=== PATIENT | male | born 1970 | race Caucasian/White ===

== ENCOUNTER → 2018-03-18 12:39 | Outpatient (CLI) | payer OTHER, SELFPAY ==
[2018-03-18 14:15] LABS: Absolute Lymphocyte Count 2.25 X10^3/ul (0.83-4.51); Absolute Neutrophil Count 4.7 X10^3/uL (2.0-7.7); Basophil# 0.04 X10^3/uL; Basophil% 0.5 % (0-1); Eosinophils% 1.3 % (0-5); Hematocrit 44.2 % (40-54); Lymphocyte # 2.25 X10^3/ul (4.0); Lymphocyte % 28.2 % (19-41); Mean Corp Hgb Conc 31.7 g/gl (32-36); Mean Corpuscular Hgb 24.8 pg (27.0-32.0); Mean Corpuscular Volume 78.2 fL (80-94); Mean Platelet Vol. 9.9 fl (6.2-12.0); Monocyte# 0.88 X10^3/uL; Neutrophil % 58.7 % (47-70); POSITIVE COUNT NO; POSITIVE DIFFERENTIAL NO; POSITIVE MORPHOLOGY NO; Platelet Count 395 K/mm3 (150-450); RBC Distribution Width SD 39.6 fl (35.1-43.9); Red Blood Count 5.65 M/mm3 (4.6-6.2)
[2018-03-18 14:32] LABS: Vitamin D,25 Hydroxy 7.4 ng/mL (29.95-100.01)
[2018-03-18 14:34] LABS: ALB/GLOB Ratio 0.9 RATIO (0.9-2.4); AST(SGOT) 16 U/L (15-37); Alanine Aminotransfer ALT/SGPT 39 U/L (16-61); Albumin, Serum 4.1 g/dL (3.2-5.0); Alkaline Phosphatase 72 U/L (45-117); Anion Gap 7 (5-15); BUN 15 mg/dL (7-18); BUN/Creat Ratio 17.7 RATIO (10-20); Calcium,Total 9.5 mg/dL (8.5-10.1); Chloride 99 mmol/L (98-107); Cholesterol 182 mg/dL (200); Creatinine, Serum 0.85 mg/dL (0.70-1.30); EST Glomerular Filtration Rate 103 mL/min (>60); Est Glom Filt Rate - Afr Amer 124 mL/min (>60); Globulin 4.4 g/dL (2.2-4.2); Glucose 93 mg/dL (74-106); High Density Lipoprotein 34 mg/dL; Potassium 3.6 mmol/L (3.5-5.1); Protein, Total 8.5 g/dL (6.4-8.2); Sodium Level 136 mmol/L (136-145); Thyroid Stim Hormone (TSH) 1.71 uIU/mL (0.358-3.74); Triglycerides 254 mg/dL; Very Low Density Lipoprotein 51 mg/dL (5-40)
[2018-03-18 14:38] LABS: Microalbumin,Random Urine 66.8 mg/L (NO RANGE EST.); Microalbumin:Creatinine Ratio 61.3 mg/g CRE (<30 mg/g CRE)
== END ==
PROVIDERS: Family Provider Family Medicine; PCP Family Medicine; Referring Provider Family Medicine; Visit Provider Family Medicine
DX: E11.65 Type 2 diabetes mellitus with hyperglycemia (principal); E11.8 Type 2 diabetes mellitus with unspecified complications
CPT/HCPCS: 36415; 80053; 80061; 82043; 82306; 82570; 84443; 85025

== ENCOUNTER → 2019-06-13 13:48 | Outpatient (CLI) | payer OTHER, SELFPAY ==
[2015-12-03 02:18] VITALS: BMI 30.7
[2019-06-13 16:04] LABS: ALB/GLOB Ratio 1.2 RATIO (0.9-2.4); AST(SGOT) 15 U/L (15-37); Alanine Aminotransfer ALT/SGPT 37 U/L (16-61); Albumin, Serum 4.4 g/dL (3.2-5.0); Alkaline Phosphatase 66 U/L (45-117); Anion Gap 9 (5-15); BUN 17 mg/dL (7-18); BUN/Creat Ratio 13.6 RATIO (10-20); Calcium,Total 9.5 mg/dL (8.5-10.1); Chloride 100 mmol/L (98-107); Cholesterol 180 mg/dL (200); Creatinine, Serum 1.25 mg/dL (0.70-1.30); EST Glomerular Filtration Rate 65 mL/min (>60); Est Glom Filt Rate - Afr Amer 79 mL/min (>60); Globulin 3.6 g/dL (2.2-4.2); Glucose 87 mg/dL (74-106); High Density Lipoprotein 44 mg/dL; Potassium 3.4 mmol/L (3.5-5.1); Sodium Level 136 mmol/L (136-145); Triglycerides 166 mg/dL; Very Low Density Lipoprotein 33 mg/dL (5-40)
[2019-06-13 16:53] LABS: Microalbumin:Creatinine Ratio 136.2 mg/g CRE (<30 mg/g CRE)
[2019-06-13 17:09] LABS: Hemoglobin A1c 6.8 % (4.2-6.3)
== END ==
PROVIDERS: PCP Family Medicine; Visit Provider Family Medicine
DX: E11.8 Type 2 diabetes mellitus with unspecified complications (principal); I10 Essential (primary) hypertension
CPT/HCPCS: 36415; 80053; 80061; 82043; 82570; 83036

== ENCOUNTER → 2020-06-07 11:36 | Outpatient (CLI) | payer OTHER, SELFPAY ==
[2015-12-03 02:18] VITALS: BMI 30.7
[2020-06-07 15:45] LABS: ALB/GLOB Ratio 1.1 RATIO (0.9-2.4); AST(SGOT) 18 U/L (15-37); Alanine Aminotransfer ALT/SGPT 34 U/L (16-61); Albumin, Serum 4.1 g/dL (3.2-5.0); Alkaline Phosphatase 81 U/L (45-117); Anion Gap 9 (5-15); BUN 12 mg/dL (7-18); Calcium,Total 9.2 mg/dL (8.5-10.1); Chloride 95 mmol/L (98-107); Cholesterol 227 mg/dL (200); Creatinine, Serum 0.86 mg/dL (0.70-1.30); EST Glomerular Filtration Rate 101 mL/min (>60); Est Glom Filt Rate - Afr Amer 122 mL/min (>60); Globulin 3.8 g/dL (2.2-4.2); Glucose 152 mg/dL (74-106); High Density Lipoprotein 48 mg/dL; Protein, Total 7.9 g/dL (6.4-8.2); Sodium Level 132 mmol/L (136-145); Triglycerides 223 mg/dL; Very Low Density Lipoprotein 45 mg/dL (5-40)
[2020-06-07 17:50] LABS: Uric Acid 7.5 mg/dL (3.5-7.2)
[2020-06-07 18:03] LABS: Hemoglobin A1c 7.1 % (3.8-5.6)
== END ==
PROVIDERS: PCP Family Medicine; Visit Provider Family Medicine
DX: E11.8 Type 2 diabetes mellitus with unspecified complications (principal); I10 Essential (primary) hypertension
CPT/HCPCS: 36415; 80053; 80061; 83036; 84550

== ENCOUNTER 2020-06-19 09:52 | Emergency (ER) | payer OTHER, SELFPAY ==
[2020-06-19 09:53] VITALS: BP 137/100; PULSE 83; RESP 16; TEMP 36.1; O2SAT 95; BMI 32.5
--- NOTE | 2020-06-19 10:18 | ED.VISSUMM ---
- ER Visit Summary Date of Service: 06/19/20 Chief Complaint: Right thumb laceration History of Present Illness: The patient is a 49 M presenting with right thumb laceration. Patient was at work. 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 Tetanus is up-to-date. No other injuries. Physical Examination: Vitals are stable. Patient is afebrile. Alert no acute distress. HEENT exam is unremarkable. Neck is supple. Lungs are clear and equal bilaterally. Heart is regular rate and rhythm. Extremities 2.5 cm laceration distal medial right thumb. Tendon function intact. Nail intact. Normal cap refill Skin is warm and dry. No focal neurologic deficit. Remainder of exam is unremarkable. Emergency Department Course and Treatment: Digital block was performed. Irrigated with saline. 4, 5-0 simple sutures were placed. Patient tolerated this well. Advised wound care instructions. Ad[facility] with [facility]. Advised to return to ED for worsening complaints. Disposition: Discharge home Impression: Right thumb laceration, laceration repair This note was generated with [employer] dictation software. It may contain incorrect words, spelling, and punctuation that were not noted in review of the chart prior to signing ED Disposition - Plan for ED Patient: Instructions: ED Laceration, Hand: All Closures Referrals: Kyaw Schmidt MD [Primary Care Provider] - [facility] [[facility]] -
--- NOTE | 2020-06-19 11:09 | ED.DEP ---
ED Disposition - Plan for ED Patient: Instructions: ED Laceration, Hand: All Closures Referrals: Kyaw Schmidt MD [Primary Care Provider] - [facility] [[facility]] -
[2020-06-19] MEDS: Lidocaine 1% (20 ml mdv) 20 ML Vial INFILT (11:25)
[2020-06-19 11:27] VITALS: RESP 20
[2020-06-19 11:30] VITALS: RESP 20
== END 2020-06-19 11:31 | disposition home or self-care (01) ==
LOC: ED 10:23
PROVIDERS: Emergency Provider Emergency Medicine; PCP Family Medicine
DX: S61.011A Laceration without foreign body of right thumb without damage to nail, initial encounter (principal); W27.4XXA Contact with kitchen utensil, initial encounter; Y93.9 Activity, unspecified; Y92.89 Other specified places as the place of occurrence of the external cause; Y99.0 Civilian activity done for income or pay
CPT/HCPCS: 12001; 99284

== ENCOUNTER → 2020-06-27 14:24 | Outpatient (CLI) | payer OTHER, SELFPAY ==
[2020-06-19 09:53] VITALS: BMI 32.5
[2020-06-27 18:08] LABS: Anion Gap 9 (5-15); BUN 16 mg/dL (7-18); BUN/Creat Ratio 19.5 RATIO (10-20); Calcium,Total 10.1 mg/dL (8.5-10.1); Chloride 102 mmol/L (98-107); Creatinine, Serum 0.82 mg/dL (0.70-1.30); EST Glomerular Filtration Rate 106 mL/min (>60); Est Glom Filt Rate - Afr Amer 128 mL/min (>60); Glucose 90 mg/dL (74-106); Potassium 3.7 mmol/L (3.5-5.1); Sodium Level 138 mmol/L (136-145)
== END ==
LOC: MFPLAB 14:27
PROVIDERS: PCP Family Medicine; Referring Provider Family Medicine; Visit Provider Family Medicine
DX: I10 Essential (primary) hypertension (principal)
CPT/HCPCS: 36415; 80048

== ENCOUNTER → 2020-08-02 11:27 | Outpatient (CLI) | payer OTHER, SELFPAY ==
[2020-06-29 14:26] VITALS: BMI 36.1
[2020-08-02 15:11] LABS: Absolute Lymphocyte Count 1.85 X10^3/uL (0.83-4.51); Absolute Neutrophil Count 4.3 X10^3/uL (2.0-7.7); Basophil# 0.06 X10^3/uL; Basophil% 0.9 % (0-1); Eosinophil# 0.09 X10^3/uL; Eosinophils% 1.3 % (0-5); Hematocrit 46.9 % (40-54); Hemoglobin 14.5 g/dL (13.0-16.5); Lymphocyte # 1.85 X10^3/ul (4.0); Lymphocyte % 26.7 % (19-41); Mean Corp Hgb Conc 30.9 g/dL (32-36); Mean Corpuscular Hgb 24.5 pg (27.0-32.0); Mean Corpuscular Volume 79.1 fL (80-94); Mean Platelet Vol. 9.9 fl (6.2-12.0); Monocyte# 0.56 X10^3/uL; Monocyte% 8.1 % (0-10); NRBC Flagged by Analyzer 0 % (0-5); Neutrophil # 4.31 X10^3/uL (2.7-7.7); Platelet Count 363 K/mm3 (150-450); RBC Distribution Width CV 14.2 % (11.6-14.6); RBC Distribution Width SD 40.6 fl (35.1-43.9); Red Blood Count 5.93 M/mm3 (4.6-6.2); White Blood Count 6.9 K/mm3 (4.4-11.0)
[2020-08-02 15:49] LABS: ALB/GLOB Ratio 1.1 RATIO (0.9-2.4); AST(SGOT) 15 U/L (15-37); Alanine Aminotransfer ALT/SGPT 33 U/L (16-61); Albumin, Serum 3.9 g/dL (3.2-5.0); Alkaline Phosphatase 85 U/L (45-117); Anion Gap 9 (5-15); BUN 9 mg/dL (7-18); BUN/Creat Ratio 11.5 RATIO (10-20); Calcium,Total 9.1 mg/dL (8.5-10.1); Chloride 102 mmol/L (98-107); Creatinine, Serum 0.78 mg/dL (0.70-1.30); EST Glomerular Filtration Rate 112 mL/min (>60); Est Glom Filt Rate - Afr Amer 136 mL/min (>60); Globulin 3.6 g/dL (2.2-4.2); Glucose 208 mg/dL (74-106); Potassium 3.7 mmol/L (3.5-5.1); Protein, Total 7.5 g/dL (6.4-8.2); Sodium Level 135 mmol/L (136-145)
== END ==
LOC: MFPLAB 11:30
PROVIDERS: PCP Family Medicine; Referring Provider Family Medicine; Visit Provider Family Medicine
DX: R19.7 Diarrhea, unspecified (principal)
CPT/HCPCS: 36415; 80053; 85025

== ENCOUNTER → 2020-08-03 | Outpatient (CLI) | payer OTHER, SELFPAY ==
[2020-06-29 14:26] VITALS: BMI 36.1
== END | disposition home or self-care (01) ==
LOC: LABSPEC 09:08
PROVIDERS: PCP Family Medicine; Referring Provider Family Medicine; Visit Provider Family Medicine
DX: R19.7 Diarrhea, unspecified (principal)
CPT/HCPCS: 87493; 87506

== ENCOUNTER 2021-07-17 00:54 | Inpatient (IN) | payer OTHER, SELFPAY ==
[2021-07-17] VITALS (21 sets, daily range): BP systolic 160–232; BP diastolic 104–136; PULSE 67–111; RESP 12–35; TEMP 35.6–36.7; O2SAT 93–100; BMI 35.1; BMI 32.1
--- NOTE | 2021-07-17 00:58 | RAD_ITS ---
STUDY: X-RAY CHEST REASON FOR EXAM: Male, 50 years old. SOB TECHNIQUE: Single AP portable view of the chest. COMPARISON: None. FINDINGS: There is a hazy groundglass appearance of the lungs that is suggestive of possible layering effusions and/or atypical infiltrates. There is mild cardiac enlargement. Normal mediastinum and lizabeth. Normal visualized pulmonary arteries. Normal visualized aortic arch and descending thoracic aorta. Normal visualized thoracic spine. Normal visualized ribs, clavicles, and shoulders. There is no demonstrated abnormality of the visualized soft tissue structures of the upper abdomen. RAD/Chest 1 View (Portable) IMPRESSION: Hazy appearance of the lungs can consider possible layering effusions possible pulmonary edema and/or potentially viral pneumonia. Electronically Signed: Sharyn Weller MD at 2:02 EST ,
--- NOTE | 2021-07-17 00:58 | EKG12_ITS ---
Test Reason : DYSRHYTHMIA Blood Pressure : / mmHG Vent. Rate : 109 BPM Atrial Rate : 109 BPM P-R Int : 152 ms QRS Dur : 142 ms QT Int : 390 ms P-R-T Axes : 054 -62 048 degrees QTc Int : 525 ms Sinus tachycardia Left axis deviation Right bundle branch block Left ventricular hypertrophy Abnormal ECG Confirmed by ZEINAB MUÑIZ, MERY ([id number]), book editor MOISES ABERU ([id number]) on 07/18/2021 8:22:23 AM Referred By: MADAN Confirmed By:MERY ARRIOLA MD
[2021-07-17] MEDS: Furosemide 40 MG/4 ML Vial IV ×3 (01:15→16:57)
[2021-07-17] MEDS: Labetalol (Prefilled) 20 MG/4 ML 10 MG IV (01:16)
[2021-07-17 01:18] LABS: Absolute Lymphocyte Count 2.96 X10^3/uL (0.83-4.51); Absolute Neutrophil Count 5.2 X10^3/uL (2.0-7.7); Basophil# 0.08 X10^3/uL; Basophil% 0.9 % (0-1); Eosinophil# 0.22 X10^3/uL; Eosinophils% 2.4 % (0-5); Hemoglobin 14.7 g/dL (13.0-16.5); Lymphocyte # 2.96 X10^3/ul (0.83-4.51); Lymphocyte % 31.9 % (19-41); Mean Corp Hgb Conc 31.3 g/dL (32-36); Mean Corpuscular Hgb 24.1 pg (27.0-32.0); Mean Corpuscular Volume 76.9 fL (80-94); Mean Platelet Vol. 9.5 fl (6.2-12.0); Monocyte# 0.79 X10^3/uL; Monocyte% 8.5 % (0-10); NRBC Flagged by Analyzer 0 % (0-5); Neutrophil % 55.9 % (47-70); Platelet Count 336 K/mm3 (150-450); RBC Distribution Width CV 13.8 % (11.6-14.6); RBC Distribution Width SD 37.5 fl (35.1-43.9); Red Blood Count 6.11 M/mm3 (4.6-6.2); White Blood Count 9.3 K/mm3 (4.4-11.0)
[2021-07-17 01:41] LABS: Anion Gap 10 (5-15); BUN 11 mg/dL (7-18); Calcium,Total 9.1 mg/dL (8.5-10.1); Chloride 99 mmol/L (98-107); Creatinine, Serum 0.91 mg/dL (0.70-1.30); EST Glomerular Filtration Rate 93 mL/min (>60); Est Glom Filt Rate - Afr Amer 113 mL/min (>60); Estimated Creatinine Clearance 97.12 ml/min; Glucose 279 mg/dL (74-106); Potassium 3.3 mmol/L (3.5-5.1); Sodium Level 133 mmol/L (136-145); Troponin-I HS 20 pg/mL (3.0-78.0)
[2021-07-17 01:44] LABS: BNP,B-Type NATRIURETIC PEPTIDE 118.3 pg/mL (0-100)
--- NOTE | 2021-07-17 03:13 | EX.ED.DYSGE1 ---
HPI History of Present Illness Chief Complaint: Shortness of Breath Informant: patient Onset/Context/Timing Onset: Today Current Severity: Moderate Maximum Severity: Severe Narrative Narrative: Patient presents via EMS secondary to respiratory distress. He reports 20 minutes prior to calling EMS he had sudden onset shortness of breath. He denied chest pain. EMS notes he was 71% on room air on their arrival. On arrival to the emergency room he is on a nonrebreather and satting in the mid 90s. He denies any cardiac or lung history. [facility] Medical History Diabetes High cholesterol Hypertension Home Medications amlodipine-benazepril 1 ea PO QHS 06/24/15 [History Last Taken Unknown] aspirin 81 mg tablet,delayed release 81 mg PO DAILY 10/27/20 [History Last Taken Unknown] bupropion HCl 150 mg tablet,12 hr sustained-release 150 mg PO BID 10/27/20 [History Last Taken Unknown] cholecalciferol (vitamin D3) 1,250 mcg (50,000 unit) capsule 1,250 mcg PO QWEEK 10/27/20 [History Last Taken Unknown] dulaglutide 1.5 mg/0.5 mL subcutaneous pen injector 1.5 mg SUBCUT QWEEK 10/27/20 [History Last Taken Unknown] empagliflozin 25 mg tablet 25 mg PO DAILY 10/27/20 [History Last Taken Unknown] glimepiride 2 mg tablet 2 mg PO DAILY 10/27/20 [History Last Taken Unknown] losartan 100 mg tablet 100 mg PO DAILY 10/27/20 [History Last Taken Unknown] metoprolol tartrate 25 mg tablet 25 mg PO BID 10/27/20 [History Last Taken Unknown] pioglitazone 30 mg tablet 30 mg PO DAILY 10/27/20 [History Last Taken Unknown] pravastatin 40 mg tablet 40 mg PO QHS 10/27/20 [History Last Taken Unknown] prednisone 10 mg tablet 10 mg PO .COMPLEX #30 tab 10/27/20 [Rx Last Taken Unknown] Allergy/AdvReac Type Severity Reaction Status Date / Time No Known Allergies Allergy Verified 11/17/20 11:29 Social History Smoking Status: Never smoker ROS ROS ED Constitutional Constitutional ED: Denies chills or fever(s) Eyes Eyes: Denies change in vision ENT ENT ED: Denies sore throat Cardiovascular Cardiovascular: Denies chest pain Respiratory/Chest Respiratory/Chest: Reports cough and dyspnea Gastrointestinal Gastrointestinal: Denies abdominal pain, nausea or vomiting Genitourinary Genitourinary ED: Denies dysuria Musculoskeletal Musculoskeletal: Denies back pain Integumentary Denies rash Neurologic Neurologic: Denies headache(s) or weakness Allergic/Immunologic Allergic/Immunologic ED: Denies urticaria EXAM Physical Exam Const Vital Signs: 07/17/21 00:55 07/17/21 01:02 07/17/21 01:07 Temperature 97.1 F L 97.1 F L Temperature Source Temporal Temporal Pulse Rate 111 H 104 H Respiratory Rate 28 H 30 H Respiratory Effort Short of Breath Accessory Muscle Use Respiratory Pattern Blood Pressure 232/136 H 211/135 H Blood Pressure Mean 168 160 Pulse Ox 97 97 Oxygen Delivery Method Non-Rebreather Non-Rebreather Non-Rebreather Oxygen Flow Rate (L/min) 15 15 15 Fraction of Inspired Oxygen (FIO2) 07/17/21 01:11 07/17/21 01:32 07/17/21 03:08 Temperature Temperature Source Pulse Rate 96 81 79 Respiratory Rate 35 H 23 H 24 H Respiratory Effort Respiratory Pattern Tachypnea Blood Pressure 179/120 H 161/105 H Blood Pressure Mean 139 123 Pulse Ox 98 100 96 Oxygen Delivery Method CPAP Bi-pap Oxygen Flow Rate (L/min) Fraction of Inspired Oxygen (FIO2) 80 Positive obese Nutritional Appearance: obese HEENT Reports moist mucous membranes Eyes PERRL and EOMs intact bilaterally Neck supple Chest Wall inspection of chest normal and palpation of chest normal Resp Resp Narrative: Diminished lung sounds with crackles bilaterally. GI non-tender Palpation: soft Extremity normal to inspection Neuro oriented x3 Sensorium / Orientation: alert Skin no rashes or lesions noted MDM MDM MDM Narrative Medical decision making narrative: Patient placed on BiPAP on arrival to the emergency room. He reports a history of hypertension but has not taken his blood pressure medications in quite some time. Initial blood pressure in the ER is 232/136. Lab work, chest x-ray, Covid swab, EKG obtained. Lab Data Attestation: I reviewed the patient's lab results. Labs: Laboratory Results - last 24 hr 07/17/21 07/17/21 07/17/21 01:00 01:00 01:00 WBC 9.3 RBC 6.11 Hgb 14.7 Hct 47.0 MCV 76.9 L MCH 24.1 L MCHC 31.3 L RDW Std Deviation 37.5 RDW Coeff of Marcela 13.8 Plt Count 336 MPV 9.5 Immature Gran % (Auto) 0.400 Neut % (Auto) 55.9 Lymph % (Auto) 31.9 [place] % (Auto) 8.5 Eos % (Auto) 2.4 Baso % (Auto) 0.9 Absolute Neuts (auto) 5.2 Absolute Lymphs (auto) 2.96 Nucleated RBC % 0 Sodium 133 L Potassium 3.3 L Chloride 99 Carbon Dioxide 24.0 Anion Gap 10 BUN 11 Creatinine 0.91 Estim Creat Clear Calc 97.12 Est GFR (MDRD) Af Amer 113 Est GFR (MDRD) Non-Af 93 BUN/Creatinine Ratio 12.0 Glucose 279 H Calcium 9.1 Troponin I High Sens 20 B-Natriuretic Peptide 118.3 H Radiography Chest X-Ray - ED: 1 View, Read by ED Physician and - (Mild pulmonary edema) Diagnostic Testing: Clinical Impression(s) from Imaging Studies Chest X-Ray 07/17/21 00:58 IMPRESSION: Hazy appearance of the lungs can consider possible layering effusions possible pulmonary edema and/or potentially viral pneumonia. Electronically Signed: Sharyn Weller MD at 2:02 EST Reading Location ID and State: [facility] / [place] Tel , Service support , EKG Initial EKG: Attestation: I personally reviewed and interpreted this EKG as follows: Interpretation: Sinus Tachycardia (Sinus tach at 109 with right bundle branch block. LVH noted. No acute ischemia.) Treatment and Re-Evaluation Comments:: On repeat evaluation patient resting much more comfortably. FiO2 at 30%. Respiratory rate down to 17. After I initially seen the EKG revealing no ischemia he was given a dose of labetalol to control blood pressure and a dose of IV Lasix. Repeat blood pressure is currently 161/105. Covid test is negative. CBC is normal. Chemistry studies remarkable for slightly low sodium at 133 and potassium at 3.3. Renal function normal. Glucose 279. Initial troponin is 20. BNP is 118. I believe the patient had pulmonary edema secondary to uncontrolled hypertension. I will speak with hospitalist regarding admission. Discharge Plan Triage Chief Complaint: Shortness of Breath ED Provider: Racheal Marsh Dx/Rx/DC Orders Clinical Impression: Hypertensive emergency, Pulmonary edema Prescriptions: No Action prednisone 10 mg tablet 10 mg PO .COMPLEX Qty: 30 RF: 0 glimepiride 2 mg tablet 2 mg PO DAILY RF: 0 metoprolol tartrate 25 mg tablet 25 mg PO BID RF: 0 Trulicity 1.5 mg/0.5 mL pen injector 1.5 mg subcut QWEEK RF: 0 pravastatin 40 mg tablet 40 mg PO QHS RF: 0 aspirin [Adult Aspirin Regimen] 81 mg tablet,delayed release (DR/EC) 81 mg PO DAILY RF: 0 Jardiance 25 mg tablet 25 mg PO DAILY RF: 0 pioglitazone 30 mg tablet 30 mg PO DAILY RF: 0 cholecalciferol (vitamin D3) 1,250 mcg (50,000 unit) capsule 1,250 mcg PO QWEEK RF: 0 losartan 100 mg tablet 100 mg PO DAILY RF: 0 bupropion HCl 150 mg tablet sustained-release 12 hr 150 mg PO BID RF: 0 amlodipine-benazepril 1 EACH capsule 1 ea PO QHS RF: 0 Primary Care Provider: Kyaw Schmidt Referrals: Kyaw Schmidt MD [Primary Care Provider] - Disposition Disposition: Acute Care Hospital [facility]
--- NOTE | 2021-07-17 03:29 | HP.PCM.HOS_ITS ---
HPI - General General Date of Admission: 07/17/21 HPI Narrative ANTONIA KRUGER, is a 50 M with a significant history of obesity; obstructive sleep apnea; diabetes mellitus and hypertension who presents to the emergency department with sudden onset persistent shortness of breath that started about 20 minutes before presentation. When paramedics arrived patient oxygen saturation was 71%. En-route to the hospital patient was placed on a nonrebreather mask. At the emergency department the nonrebreather mask was switched to BiPAP. Patient was found to have severely elevated blood pressure and patient was given Lasix and labetalol. [facility] Medical History Diabetes High cholesterol Hypertension Home Medications amlodipine-benazepril 1 ea PO QHS 06/24/15 [History Last Taken Unknown] aspirin 81 mg tablet,delayed release 81 mg PO DAILY 10/27/20 [History Last Taken Unknown] bupropion HCl 150 mg tablet,12 hr sustained-release 150 mg PO BID 10/27/20 [History Last Taken Unknown] cholecalciferol (vitamin D3) 1,250 mcg (50,000 unit) capsule 1,250 mcg PO QWEEK 10/27/20 [History Last Taken Unknown] dulaglutide 1.5 mg/0.5 mL subcutaneous pen injector 1.5 mg SUBCUT QWEEK 10/27/20 [History Last Taken Unknown] empagliflozin 25 mg tablet 25 mg PO DAILY 10/27/20 [History Last Taken Unknown] glimepiride 2 mg tablet 2 mg PO DAILY 10/27/20 [History Last Taken Unknown] losartan 100 mg tablet 100 mg PO DAILY 10/27/20 [History Last Taken Unknown] metoprolol tartrate 25 mg tablet 25 mg PO BID 10/27/20 [History Last Taken Unknown] pioglitazone 30 mg tablet 30 mg PO DAILY 10/27/20 [History Last Taken Unknown] pravastatin 40 mg tablet 40 mg PO QHS 10/27/20 [History Last Taken Unknown] prednisone 10 mg tablet 10 mg PO .COMPLEX #30 tab 10/27/20 [Rx Last Taken Unknown] Allergy/AdvReac Type Severity Reaction Status Date / Time No Known Allergies Allergy Verified 11/17/20 11:29 Family History adopted adopted Surgical History H/O hernia repair Social History household members: spouse number of children: 0 service: Yes ([employer]) current occupational status: employed current gender identity: male Smoking Status: Never smoker ROS ROS Narrative Constitutional: Denies fever, chills, fatigue, anorexia and change in weight Eyes: Denies blurry vision, change in eye color, change in vision, discharge from eye(s), double vision, erythema, eye pain, loss of vision or other HEENT: Denies abnormal hearing, dysphagia, ear pain, epistaxis, headache(s), hearing loss, nasal congestion, nasal discharge, post nasal drip, sinus pressure, sore throat or other Cardiovascular: Reports orthopnea. Denies chest pain or palpitations. Denies paroxysmal nocturnal dyspnea. Respiratory/Chest: Reports shortness of breath. Denies cough. Gastrointestinal: Denies abdominal pain, coffee ground emesis, constipation, diarrhea, dyspepsia, hematemesis, hematochezia, loose stools, melena, nausea, vomiting or other Genitourinary: Denies burning urination, difficulty urinating, dysuria, hematuria, nocturia, urinary frequency, urinary hesitancy, urinary incontinence, urinary urgency or other Musculoskeletal: Denies arthralgias, back pain, joint pain, joint stiffness, joint swelling, myalgias, neck pain or other Neurologic: Denies abnormal gait, abnormal speech, confusion, disequilibrium, dizziness, focal weakness, headache(s), numbness, paresthesias, seizure-like activity, seizures, syncope, tingling, tremor(s) or other Psychiatric: Denies anxiety, depression, homicidal ideation, suicidal ideation or other Endocrinology: Denies change in body appearance, cold intolerance, excessive sweating, heat intolerance, polydipsia, polyuria or other Hematologic/Lymphatic: Denies anemia, easy bleeding, easy bruising, lymphadenopathy or other Integumentary: Denies rashes Allergic/Immunologic: Denies rhinitis, hives, eczema, asthma or other Vital Signs Vital Signs Vital Signs: 07/17/21 00:55 07/17/21 01:02 07/17/21 01:07 Temperature 97.1 F L 97.1 F L Temperature Source Temporal Temporal Pulse Rate 111 H 104 H Respiratory Rate 28 H 30 H Respiratory Effort Short of Breath Accessory Muscle Use Respiratory Pattern Blood Pressure 232/136 H 211/135 H Blood Pressure Mean 168 160 Pulse Ox 97 97 Oxygen Delivery Method Non-Rebreather Non-Rebreather Non-Rebreather Oxygen Flow Rate (L/min) 15 15 15 Fraction of Inspired Oxygen (FIO2) 07/17/21 01:11 07/17/21 01:32 07/17/21 03:08 Temperature Temperature Source Pulse Rate 96 81 79 Respiratory Rate 35 H 23 H 24 H Respiratory Effort Respiratory Pattern Tachypnea Blood Pressure 179/120 H 161/105 H Blood Pressure Mean 139 123 Pulse Ox 98 100 96 Oxygen Delivery Method CPAP Bi-pap Oxygen Flow Rate (L/min) Fraction of Inspired Oxygen (FIO2) 80 Weight Weight: 107.8 kg Body Mass Index (BMI) 35.1 Physical Exam Narrative Physical exam: General: Well-nourished, well-developed. Head: Normocephalic, atraumatic, no tenderness Eyes: PERRLA, EOMI ENT, no trauma, moist mucous membranes, no rhinorrhea Neck: Nontender, full range of motion, no spinal tenderness, deformities, step- off CVS: Regular rate and rhythm. S1-S2 present. No murmur, gallop or rub. Respiratory : Rales. Chest wall nontender, no wheezing Abdomen: Soft, nontender, nondistended, normal bowel sounds, no masses : Deferred Back: Nontender, no CVA tenderness, no midline spinal tenderness, deformities, step-offs Extremities: Nontender full range of motion, no trauma Skin: Normal color, no trauma, abrasions Neuro: Alert, oriented, cranial nerves II through XII grossly intact. Psychiatry: Normal mood. Normal affect. Not depressed. Not anxious. Results Lab / Micro Data Result Diagrams: 07/17/21 01:00 07/17/21 01:00 Labs: Laboratory Results - last 24 hr 07/17/21 01:00: WBC 9.3, RBC 6.11, Hgb 14.7, Hct 47.0, MCV 76.9 L, MCH 24.1 L, MCHC 31.3 L, RDW Std Deviation 37.5, RDW Coeff of Marcela 13.8, Plt Count 336, MPV 9.5, Immature Gran % (Auto) 0.400, Neut % (Auto) 55.9, Lymph % (Auto) 31.9, [place] % (Auto) 8.5, Eos % (Auto) 2.4, Baso % (Auto) 0.9, Absolute Neuts (auto) 5.2, Absolute Lymphs (auto) 2.96, Nucleated RBC % 0 07/17/21 01:00: Sodium 133 L, Potassium 3.3 L, Chloride 99, Carbon Dioxide 24.0, Anion Gap 10, BUN 11, Creatinine 0.91, Estim Creat Clear Calc 97.12, Est GFR (MDRD) Af Amer 113, Est GFR (MDRD) Non-Af 93, BUN/Creatinine Ratio 12.0, Glucose 279 H, Calcium 9.1, Troponin I High Sens 20 07/17/21 01:00: B-Natriuretic Peptide 118.3 H Micro: Microbiology 07/17/21 01:04 Nasal Secretion SARS-CoV-2 Antigen (Rapid) - Final Radiology Impression Chest X-Ray 07/17/21 00:58 IMPRESSION: Hazy appearance of the lungs can consider possible layering effusions possible pulmonary edema and/or potentially viral pneumonia. Electronically Signed: Sharyn Weller MD at 2:02 EST , Assessment & Plan Assessment/Plan (1) Hypertensive emergency: (2) Pulmonary edema: QUALIFIERS: Chronicity: acute Qualified Code(s): J81.0 - Acute pulmonary edema (3) Elevated troponin: PLAN: Flash pulmonary edema Chest x-ray image was visualized and independently interpreted and agree radiologist interpretation above. BNP on presentation was 118.3 Received Lasix IV at the emergency department and continued. Nitroglycerin uncemented ordered. We will get echocardiogram. Daily weights. Fluid restriction of 1500 mL daily. Cardiac diet. BiPAP was started emergency department and continued. Hypertensive emergency Patient diastolic blood pressure of more than 120 and systolic blood pressure of 101 80 on presentation. Will resume home blood pressure medication. Nitroglycerin paste as above. Lasix ordered. Trend blood pressures and adjust blood pressure medications. Hypokalemia Review of labs showed potassium of 3.3. Potassium supplementation ordered. Trend BMP. Diabetes mellitus: Patient with hyperglycemia on presentation Empagliflozin continue. Glimepiride continued. Hold Actos in the setting of flash pulmonary edema. Accu-Chek with correction scale insulin ordered. Obstructive sleep apnea: BiPAP ordered. Elevated troponin First troponin was 20 but increased to 53. EKG showed right bundle branch block. Trend troponin. DVT prophylaxis: Subcutaneous Lovenox ordered. Charges/Coding Visit Charges Inpatient E&M: 54328 Init Hosp L3
[2021-07-17 03:34] LABS: Troponin-I HS 53 pg/mL (3.0-78.0)
--- NOTE | 2021-07-17 04:43 | ECHOCS_ITS ---
Reason For Study: Dyspnea/SOB Procedure This was a 2D Doppler, Color Flow transthoracic echocardiogram. The study was technically difficult. Contrast injection was performed. Exam performed portable in patient room. Left Ventricle Normal LV size. Mild segmental systolic dysfunction (see wall motion). The estimated ejection fraction is 45 %. Transmitral doppler flow suggestive of impaired relaxation of left ventricle. Mid- Posterior: Hypokinetic. Mid-Inferior: Hypokinetic. Mid-inferoseptal : Hypokinetic. Mid- anteroseptal : Akinetic. Anterior Economy : Hypokinetic. Inferior Economy : Akinetic. Lateral Economy : Akinetic. Septal Economy : Akinetic. Right Ventricle Normal RV size. Normal systolic function. Atria The left atrium is mildly enlarged. Normal right atrium. No doppler evidence for ASD. Mitral Valve There is mild mitral annular calcification. Normal mitral valve. Mild (1+) mitral valve insufficiency. Tricuspid Valve Normal tricuspid valve. Mild tricuspid valve insufficiency. Right ventricular systolic pressure estimated to be 22 mmHg. Aortic Valve Trisinus/trileaflet aortic valve. Normal aortic valve. Pulmonic Valve The pulmonic valve is not well visualized. Great Vessels The aortic root is not well visualized. Pericardium/Pleural No pericardial effusion. Medication Diluted definity 2ml given slow IV push to enhance endocardial definition. MMode/2D Measurements & Calculations LVIDd: 5.0 cm IVSd: 0.85 cm LA dimension: 4.1 cm LVIDs: 3.6 cm LVPWd: 1.3 cm RVDd: 3.7 cm FS: 27.8 % LAV(MOD-bp): 66.7 ml LA A4 area: 22.0 cm2 RA A4 area: 14.9 cm2 LAV(MOD-bp) Indexed: 32.4 ml/m2 LAV(MOD-sp2): 66.6 ml LAV(MOD-sp4): 60.8 ml Time Measurements MV dec time: 0.17 sec Doppler Measurements & Calculations MV E max tc: 85.7 cm/sec Lat Peak E' Tc: 6.6 cm/sec Med Peak E' Tc: 7.0 cm/sec MV A max tc: 124.2 cm/sec E/E' lat: 13.0 E/E' med: 12.3 MV E/A: 0.69 MV V2 max: 128.1 cm/sec MV P1/2t max tc: 102.1 cm/sec Ao V2 max: 130.7 cm/sec MV max P.6 mmHg MV P1/2t: 88.3 msec Ao max P.8 mmHg MV V2 mean: 73.5 cm/sec MV dec slope: 338.6 cm/sec2 MV mean P.5 mmHg MV V2 VTI: 29.4 cm MVA(P1/2t): 2.5 cm2 LV V1 max: 125.3 cm/sec PA V2 max: 88.6 cm/sec TR max tc: 218.7 cm/sec LV V1 max P.3 mmHg TR max P.1 mmHg ECHO/Echo Complete W/ Contrast Interpretation Summary The study was technically difficult. Contrast injection was performed. Mild segmental systolic dysfunction (see wall motion). The estimated ejection fraction is 45 %. The left atrium is mildly enlarged. There is mild mitral annular calcification. Mild (1+) mitral valve insufficiency. Mild tricuspid valve insufficiency. Right ventricular systolic pressure estimated to be 22 mmHg. Transmitral doppler flow suggestive of impaired relaxation of left ventricle Ordering Physician: Ej Love Referring Physician: Kyaw Schmidt Performed By: Edgardo Gutiérrez RCS
[2021-07-17] MEDS: Nitroglycerin Oint 1 INCH PACKET TD ×3 (05:19→16:57)
[2021-07-17] MEDS: Potassium Chloride Oral Tablet 20 MEQ 40 MEQ PO (05:48)
[2021-07-17] MEDS: Insulin Lispro 100 UNIT/ML INSULN.PEN SC ×4 (06:36→21:36)
[2021-07-17 06:40] LABS: Bedside Glucose 319 mg/dL (70-110)
[2021-07-17 07:01] LABS: Absolute Lymphocyte Count 1.84 X10^3/uL (0.83-4.51); Absolute Neutrophil Count 7.6 X10^3/uL (2.0-7.7); Basophil# 0.07 X10^3/uL; Basophil% 0.7 % (0-1); Eosinophil# 0.11 X10^3/uL; Hematocrit 43.1 % (40-54); Hemoglobin 13.7 g/dL (13.0-16.5); Lymphocyte # 1.84 X10^3/ul (0.83-4.51); Lymphocyte % 17.4 % (19-41); Mean Corp Hgb Conc 31.8 g/dL (32-36); Mean Corpuscular Hgb 24.5 pg (27.0-32.0); Mean Platelet Vol. 9.3 fl (6.2-12.0); Monocyte# 0.86 X10^3/uL; Monocyte% 8.2 % (0-10); NRBC Flagged by Analyzer 0 % (0-5); Neutrophil # 7.63 X10^3/uL (2.7-7.7); Neutrophil % 72.3 % (47-70); Platelet Count 324 K/mm3 (150-450); RBC Distribution Width CV 13.6 % (11.6-14.6); RBC Distribution Width SD 37.6 fl (35.1-43.9); White Blood Count 10.6 K/mm3 (4.4-11.0)
[2021-07-17 07:35] LABS: Anion Gap 4 (5-15); BUN 11 mg/dL (7-18); BUN/Creat Ratio 10.2 RATIO (10-20); Calcium,Total 9.1 mg/dL (8.5-10.1); Chloride 99 mmol/L (98-107); Creatinine, Serum 1.08 mg/dL (0.70-1.30); EST Glomerular Filtration Rate 77 mL/min (>60); Est Glom Filt Rate - Afr Amer 93 mL/min (>60); Estimated Creatinine Clearance 73.84 ml/min; Glucose 289 mg/dL (74-106); Potassium 3.6 mmol/L (3.5-5.1); Sodium Level 132 mmol/L (136-145); Thyroid Stim Hormone (TSH) 1.77 uIU/mL (0.358-3.74); Troponin-I HS 59 pg/mL (3.0-78.0)
[2021-07-17] MEDS: Metoprolol Tartrate 25 MG Tablet PO ×2 (08:17→21:31)
[2021-07-17] MEDS: Empagliflozin 25 MG Tablet PO (08:18)
[2021-07-17] MEDS: Enoxaparin 40 MG/0.4 ML Syringe SC (08:18)
[2021-07-17] MEDS: Losartan Potassium 100 MG Tablet PO (08:18)
[2021-07-17] MEDS: Aspirin E.C. 81 MG Tablet PO (08:18)
[2021-07-17] MEDS: buPROPion (SR) 150 MG Tablet.SA PO ×2 (08:19→21:32)
[2021-07-17] MEDS: Glimepiride 2 MG Tablet PO (08:19)
[2021-07-17] MEDS: Acetaminophen 325 MG Tablet 650 MG PO ×3 (08:24→21:30)
--- NOTE | 2021-07-17 12:20 | CASEMGMT ---
HUBERT BARRIOS assessment: Face to Face with patient for initial transition planning/care coordination assessment. HUBERT BARRIOS introduced self and role at [facility], pt voices understanding and consents to assessment. Pt is sitting up in bed in no distress on room air. Pt is A/Ox4 and answers all questions appropriately. Care providers, pharmacy, and demographics verified. Presentation: C/o SOB, pulse ox 71% when squad arrived-squad place pt on NRB at 15L and pulse ox 97%, cough, pt diaphoretic, blood sugar 301 Admitting dx: HTN emergency, pulm edema PCP: Brayan Specialists: carlota Levi Preferred Pharmacy: [facility] Insurance: [employer] Prescription Benefit: [employer] Living Will/HPOA: Pt does not have LW/HPOA and declines AD info at this time. Pt/ aware that SW can complete AD's with pt, if he would like while admitted, voices understanding. LNOK: Dalila Olson, ; John Olson, Living Arrangements: Pt lives with in 2 story home and states no concerns at home. Pt is independent with ADL's. Transportation: Pt drives self and states no transportation concerns. DME/HHC: Pt has crutches and a cpap but is unsure of what DME company. Pt states no hx of HHC or SNF in the past. Pt states no concerns with going home at time of discharge. 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 Pt does not smoke cigarettes or drink ETOH. Pt states no further concerns/needs. CM to follow for any further discharge planning/needs. Advised pt to ask for CM if any further questions/concerns/needs arise, voices understanding. Pt Goal: Home Plan[place] HUBERT BARRIOS
[2021-07-17 13:01] LABS: Bedside Glucose 240 mg/dL (70-110)
--- NOTE | 2021-07-17 13:39 | PCM.HOSP.N ---
Documented by User: Yandel SIMMS 07/17/21 13:45 Hospitalist Note Patient is a 50-year-old male with a significant history of obesity, GRECIA, DM 2 and uncontrolled hypertension who was admitted to [facility] on 07/17/2021 for evaluation and management of acute respiratory failure secondary to pulmonary edema. Echocardiogram obtained and demonstrated mild systolic dysfunction, an EF of 45%, impaired diastolic function of the left ventricle and an RVSP of 22 mmHg. Patient voices to this provider that he has not been compliant with his hypertensive or diabetic meds recently, which could have led to this current exacerbation. Patient is already on appropriate SKYLER/ARB therapy and beta-cecily at home. We will continue with IV Lasix twice daily and supplemental O2 as needed. Patient seen by Yandel Poole PA-C, under the supervision of Dr. Acuña. Time spent on patient care: 10 minutes. Documented by User: Dr. Rowena Acuña MD 07/17/21 14:43 Addendum Addendum: Patient seen by Yandel Poole PA-C under my supervision Patient seen and examined. He was admitted with a complaint of sudden onset shortness of breath which started about 20 mins prior to admission. He was found to be saturating at 71%, and he required nonrebreather mask. He subsequently was transitioned to BIPAP. He was noted to have markedly elevated blood pressure. He is being managed for hypertensive emergency. CXR showed evidence of flash pulmonary edema. He was started on IV lasix. He hasnt been on his meds because of financial constraints. He was restarted on his meds, and is on an skyler inhibitor nad beta cecily. He is on IV lasix. 2D echo shows EF of 45% with impaired diastolic function of the LV nad RVSP of 22mmhg. Cotnine losartan and metoprolo,l. Continue dulaglutide, pioglitazone and empagliflozin. IV hydralazine prn. TItrate oxygen to maintain sats >90% Rest as per Yandel Poole PA-C's note, which I have reviewed and endorsed.
--- NOTE | 2021-07-17 15:11 | CHAPLAIN ---
Type of Pastoral Visit _x__ Initial Visit ___ Follow-up Visit ___ On-call Visit ___ General Patient Visit ___ Spiritual Assessment ___ Family Conference ___ Bereavement ___ Rapid Response ___ Code Blue ___ Other (describe below) Pastoral Care Referral From _x__ Patient ___ Family ___ Nurse ___ Physician ___ Procurement Assistant ___ Sr Risk Management Consultant ___ Other (describe below) Sacrament/Intervention _x__ Active listening ___ Anointing ___ Pentecostalism ___ Bereavement ___ Communion _x__ Dulce Maria exploration ___ _x__ Life review xPrayer ___ Reconciliation ___ Sacrament of Sick _x__ Supportive presence ___ Wedding ___ Other (describe below) Pastoral Comments patient admits to feeling scared after sob episode; pt feeling much better now and is optimistic;
[2021-07-17 17:31] LABS: Bedside Glucose 210 mg/dL (70-110)
[2021-07-17] MEDS: Pravastatin 40 MG Tablet PO (21:31)
[2021-07-17 21:45] LABS: Bedside Glucose 247 mg/dL (70-110)
[2021-07-17] MEDS: Lisinopril 20 MG Tablet PO (21:46)
[2021-07-17] MEDS: amLODIPine 10 MG Tablet PO (21:46)
[2021-07-18] VITALS (19 sets, daily range): BP systolic 146–171; BP diastolic 96–117; PULSE 69–86; RESP 16–18; TEMP 36.3–37; O2SAT 92–97
[2021-07-18] MEDS: Nitroglycerin Oint 1 INCH PACKET TD ×5 (00:40→23:32)
[2021-07-18 05:21] LABS: Absolute Lymphocyte Count 2.38 X10^3/uL (0.83-4.51); Absolute Neutrophil Count 7.1 X10^3/uL (2.0-7.7); Basophil# 0.06 X10^3/uL; Basophil% 0.5 % (0-1); Eosinophil# 0.22 X10^3/uL; Hematocrit 45.4 % (40-54); Hemoglobin 14.3 g/dL (13.0-16.5); Lymphocyte # 2.38 X10^3/ul (0.83-4.51); Lymphocyte % 21.7 % (19-41); Mean Corp Hgb Conc 31.5 g/dL (32-36); Mean Corpuscular Hgb 23.7 pg (27.0-32.0); Mean Corpuscular Volume 75.2 fL (80-94); Mean Platelet Vol. 9.2 fl (6.2-12.0); Monocyte# 1.13 X10^3/uL; Monocyte% 10.3 % (0-10); NRBC Flagged by Analyzer 0 % (0-5); Neutrophil # 7.14 X10^3/uL (2.7-7.7); Platelet Count 346 K/mm3 (150-450); RBC Distribution Width CV 13.9 % (11.6-14.6); RBC Distribution Width SD 37.2 fl (35.1-43.9); Red Blood Count 6.04 M/mm3 (4.6-6.2)
[2021-07-18 05:41] LABS: Anion Gap 6 (5-15); BUN 19 mg/dL (7-18); BUN/Creat Ratio 20.6 RATIO (10-20); Calcium,Total 9.3 mg/dL (8.5-10.1); Chloride 101 mmol/L (98-107); Creatinine, Serum 0.92 mg/dL (0.70-1.30); EST Glomerular Filtration Rate 92 mL/min (>60); Est Glom Filt Rate - Afr Amer 112 mL/min (>60); Estimated Creatinine Clearance 86.68 ml/min; Glucose 173 mg/dL (74-106); Potassium 3.4 mmol/L (3.5-5.1); Sodium Level 135 mmol/L (136-145)
--- NOTE | 2021-07-18 06:06 | CPS ---
Pt refused use of bipap, used nasal O2 instead
[2021-07-18] MEDS: Acetaminophen 325 MG Tablet 650 MG PO ×3 (06:13→18:14)
[2021-07-18] MEDS: Insulin Lispro 100 UNIT/ML INSULN.PEN SC ×4 (06:32→21:56)
[2021-07-18 06:36] LABS: Bedside Glucose 192 mg/dL (70-110)
[2021-07-18] MEDS: Glimepiride 2 MG Tablet PO (09:06)
[2021-07-18] MEDS: Metoprolol Tartrate 25 MG Tablet PO ×2 (09:06→21:57)
[2021-07-18] MEDS: buPROPion (SR) 150 MG Tablet.SA PO ×2 (09:06→21:58)
[2021-07-18] MEDS: Aspirin E.C. 81 MG Tablet PO (09:08)
[2021-07-18] MEDS: Ergocalciferol 1.25 MG (50, 000 UNIT) Capsule PO (09:08)
[2021-07-18] MEDS: Furosemide 40 MG/4 ML Vial IV ×2 (09:08→18:14)
[2021-07-18] MEDS: Potassium Chloride Oral Tablet 20 MEQ 40 MEQ PO (09:08)
[2021-07-18] MEDS: Enoxaparin 40 MG/0.4 ML Syringe SC (09:08)
[2021-07-18] MEDS: Empagliflozin 25 MG Tablet PO (09:08)
[2021-07-18 11:06] LABS: Bedside Glucose 281 mg/dL (70-110)
--- NOTE | 2021-07-18 11:39 | PN.HOSP_ITS ---
Documented by User: Graciela Mcguire NP, RESIDENTIAL CARPENTER-C 07/18/21 11:59 Subjective Subjective Patient seen and examined. States shortness of breath is improved. Denies chest pain. Patient states he stopped taking his blood pressure medication due to being busy with moving. Objective Data Objective Data Vital Signs: Vital Signs Temp Pulse Resp BP Pulse Ox 97.3 F L 86 16 161/96 H 94 07/18/21 09:11 07/18/21 09:11 07/18/21 09:11 07/18/21 09:11 07/18/21 09:11 Oxygen Flow Rate (L/min) 2.5 Oxygen Delivery Method Room Air Weight: 205 lb 0.478 oz Body Mass Index (BMI) 32.1 Intake & Output: Intake and Output for Last 24 Hours 07/16/21 07/17/21 07/18/21 23:59 23:59 23:59 Intake Total 1160 / 1460 420 / 420 Output Total 2125 / 2525 800 / 800 Balance -965 / -1065 -380 / -380 Lab / Micro Data Result Diagrams: 07/18/21 05:02 07/18/21 05:02 Labs: Laboratory Results - last 24 hr 07/17/21 12:12: POC Glucose 240 H 07/17/21 16:55: POC Glucose 210 H 07/17/21 21:35: POC Glucose 247 H 07/18/21 05:02: WBC 11.0, RBC 6.04, Hgb 14.3, Hct 45.4, MCV 75.2 L, MCH 23.7 L, MCHC 31.5 L, RDW Std Deviation 37.2, RDW Coeff of Marcela 13.9, Plt Count 346, MPV 9.2, Immature Gran % (Auto) 0.500, Neut % (Auto) 65.0, Lymph % (Auto) 21.7, [place] % (Auto) 10.3 H, Eos % (Auto) 2.0, Baso % (Auto) 0.5, Absolute Neuts (auto) 7.1, Absolute Lymphs (auto) 2.38, Nucleated RBC % 0 07/18/21 05:02: Sodium 135 L, Potassium 3.4 L, Chloride 101, Carbon Dioxide 28.0, Anion Gap 6, BUN 19 H, Creatinine 0.92, Estim Creat Clear Calc 86.68, Est GFR (MDRD) Af Amer 112, Est GFR (MDRD) Non-Af 92, BUN/Creatinine Ratio 20.6 H, Glucose 173 H, Calcium 9.3 07/18/21 06:30: POC Glucose 192 H 07/18/21 10:58: POC Glucose 281 H Micro: Microbiology 07/17/21 01:04 Nasal Secretion SARS-CoV-2 Antigen (Rapid) - Final Radiography Diagnostic Testing: Radiology Impression Echocardiogram 07/17/21 04:43 Interpretation Summary The study was technically difficult. Contrast injection was performed. Mild segmental systolic dysfunction (see wall motion). The estimated ejection fraction is 45 %. The left atrium is mildly enlarged. There is mild mitral annular calcification. Mild (1+) mitral valve insufficiency. Mild tricuspid valve insufficiency. Right ventricular systolic pressure estimated to be 22 mmHg. Transmitral doppler flow suggestive of impaired relaxation of left ventricle Ordering Physician: Ej Love Referring Physician: Kyaw Schmidt Performed By: Edgardo Gutiérrez RCS Physical Exam Const alert, oriented x3 and no apparent distress Orientation / Consciousness: awake, oriented to person, oriented to place and oriented to time HEENT normocephalic and moist oral mucous membranes Eyes PERRL, EOMs intact bilaterally and conjunctivae normal Neck no lymphadenopathy Resp normal respiratory effort and clear to auscultation bilaterally Cardio regular rate, regular rhythm and no murmurs Peripheral Pulses: pulses 2+ throughout GI normal to inspection, nondistended, normoactive bowel sounds, non-tender and no n-distended Extremity normal to inspection Skin no rashes or lesions noted Lesions: no lesions Rashes: no rashes Trauma: no lacerations or abrasions Neuro CN's II-XII intact bilaterally, no focal motor deficits, no sensory deficits noted and deep tendon reflexes 2+ bilaterally Psych mental status grossly normal and affect normal Assessment & Plan Assessment/Plan (1) Hypertensive emergency: (2) Elevated troponin: (3) Pulmonary edema: QUALIFIERS: Chronicity: acute Qualified Code(s): J81.0 - Acute pulmonary edema PLAN: 1. Hypertensive emergency-blood pressure on admission 232/136. Blood pressure improved. Resume previously prescribed amlodipine/benazepril, metoprolol. Will likely need further BP adjustment. Patient appears to have been on ARB at some point as well, did not continue as patient is on ACEi. As needed hydralazine for systolic blood pressure greater than 160. 2. Acute heart failure with reduced ejection fraction-echocardiogram demonstrates an EF of 45%, mild mitral valve insufficiency, RVSP estimated to be 22 mmHg. No prior echo for comparison. Chest x-ray and admission with pulmonary edema. BNP 118. Cardiology consulted given mildly reduced EF with no prior history. 3. Acute hypoxic respiratory failure secondary to flash pulmonary edema related to #1-walking pulse ox prior to discharge. Oxygen now stable on room air following diuresis. 4. Type 2 diabetes mellitus-hold oral regimen. Accu-Cheks with sliding scale insulin. 5. GRECIA-continue BiPAP. 6. Hyperlipidemia-continue statin. 7. Anxiety/depression-on bupropion. DVT prophylaxis-Lovenox subcu This patient was seen by JERRY Torre under the supervision of Dr. Acuña. Time spent examining patient, reviewing data and subsequent management of care: 12 Minutes Documented by User: Dr. Rowena Acuña MD 07/18/21 14:17 Objective Data Lab / Micro Data Result Diagrams: 07/18/21 05:02 07/18/21 05:02 Charges/Coding Addendum Addendum: Patient seen by Graciela EDWARDS under my supervision Patient seen and examined. Said he was unable to sleep much last night but had no active complaints. Review of systems otherwise negative. He had 2D echocardiogram done which showed akinesis of the left ventricle. Cardiology therefore consulted. Blood pressure still remains poorly controlled and is elevated. O/E: Const alert, oriented x3 and no apparent distress, obese General Appearance: cooperative HEENT normocephalic, head/scalp atraumatic, hearing grossly normal bilaterally and moist oral mucous membranes Eyes PERRL, EOMs intact bilaterally and conjunctivae normal Neck no lymphadenopathy, supple and no JVD Resp normal respiratory effort and clear to auscultation bilaterally Cardio regular rate, regular rhythm, S1 normal heart sound, S2 normal heart sound and no murmurs GI normal to inspection, nondistended, normoactive bowel sounds and soft to palpation GI Narrative: abdominal dressing over surgical site Extremity normal to inspection, full ROM and no clubbing, cyanosis or edema Skin no rashes or lesions noted Neuro oriented x3, CN's II-XII intact bilaterally and moves all extremities Sensorium / Orientation: awake and alert Psych affect normal Assessment and plan #Hypertensive emergency * Blood pressure has improved. On amlodipine benazepril as well as metoprolol. * IV hydralazine as needed. * 2D echo showed akinesia of the left ventricle and EF of 45%. Cardiology consulted. * Losartan added on * #Acute hypoxic respiratory failure due to flash pulmonary edema * Resolved. Patient was diuresed with IV Lasix. * Now on room air. * Switch Lasix to p.o. * #Type 2 diabetes mellitus: On insulin sliding scale. Accu-Cheks AC at bedtime. Dulaglutide on hold. On empagliflozin and glimepiride #GRECIA: On CPAP nightly #Hyperlipidemia: On statin DVT prophylaxis: Lovenox Rest as per JERRY Torre's notes which I reviewed and endorsed. Total time spent on the care of the patient today is 20 minutes with JERRY Torre spending 12 minutes making a total of 32 minutes. Visit Charges Inpatient E&M: 20247 Subs Hosp L2
--- NOTE | 2021-07-18 12:27 | PCM.CONS.C ---
Documented by User: MENDEZ Clark 07/18/21 14:45 Assessment & Plan Assessment/Plan (1) Hypertensive emergency: (2) Pulmonary edema: QUALIFIERS: Chronicity: acute Qualified Code(s): J81.0 - Acute pulmonary edema (3) Cardiomyopathy: PLAN: Patient's medications have been restarted. Suspect that his pulmonary edema was likely related to uncontrolled blood pressure readings. Would like to obtain a renal ultrasound It is noted that his ejection fraction is 45%. His troponins have been negative. At this time we will treat with medications we will continue with his metoprolol and his ARB. Would consider an outpatient stress test HPI Consult Data Date of Consult: 07/18/21 HPI Narrative HPI Narrative: ANTONIA KRUGER, is a 50 M who presented to the ER yesterday for increased shortness of breath. He had called EMS with a sudden onset of shortness of breath. EMS noted his pulse ox was 71% on room air upon their arrival. EKG on arrival to the emergency room demonstrated sinus tachycardia with a heart rate of 109 with a right bundle branch block. Blood pressure was markedly elevated. LVH noted. He was given a dose of labetalol and IV Lasix. Patient's initial troponin was negative, BNP was 118, sodium and potassium were slightly low. Renal function was normal. Patient was admitted for pulmonary edema secondary to uncontrolled hypertension. He does have a history of obstructive sleep apnea, diabetes, hypertension. Patient notes that he has been out of his medications for several months due to multiple reasons. Prior to coming into the hospital he did not have any worsening shortness of breath or chest discomfort. [facility] Medical History Diabetes High cholesterol Hypertension Home Medications amlodipine-benazepril 1 ea PO QHS 06/24/15 [History Last Taken Unknown] aspirin 81 mg tablet,delayed release 81 mg PO DAILY 10/27/20 [History Last Taken Unknown] bupropion HCl 150 mg tablet,12 hr sustained-release 150 mg PO BID 10/27/20 [History Last Taken Unknown] cholecalciferol (vitamin D3) 1,250 mcg (50,000 unit) capsule 1,250 mcg PO QWEEK 10/27/20 [History Last Taken Unknown] dulaglutide 1.5 mg/0.5 mL subcutaneous pen injector 1.5 mg SUBCUT QWEEK 10/27/20 [History Last Taken Unknown] empagliflozin 25 mg tablet 25 mg PO DAILY 10/27/20 [History Last Taken Unknown] glimepiride 2 mg tablet 2 mg PO DAILY 10/27/20 [History Last Taken Unknown] losartan 100 mg tablet 100 mg PO DAILY 10/27/20 [History Last Taken Unknown] metoprolol tartrate 25 mg tablet 25 mg PO BID 10/27/20 [History Last Taken Unknown] pioglitazone 30 mg tablet 30 mg PO DAILY 10/27/20 [History Last Taken Unknown] pravastatin 40 mg tablet 40 mg PO QHS 10/27/20 [History Last Taken Unknown] prednisone 10 mg tablet 10 mg PO .COMPLEX #30 tab 10/27/20 [Rx Last Taken Unknown] Allergy/AdvReac Type Severity Reaction Status Date / Time No Known Allergies Allergy Verified 11/17/20 11:29 Family History adopted Surgical History H/O hernia repair Social History household members: spouse number of children: 0 service: Yes ([employer]) current occupational status: employed current gender identity: male Smoking Status: Never smoker ROS Constitutional Constitutional: Reports systems reviewed and no addt'l complaints, except as documented Eyes Eyes: Reports systems reviewed and no addt'l complaints, except as documented ENT HEENT: Reports systems reviewed and no addt'l complaints, except as documented Cardiovascular Cardiovascular: Reports as per HPI Respiratory/Chest Respiratory/Chest: Reports as per HPI, chest tightness and cough Gastrointestinal Gastrointestinal: Denies abdominal pain, coffee ground emesis or heartburn Musculoskeletal Musculoskeletal: Denies extremity pain or joint stiffness Physical Exam Const alert, oriented x3, no apparent distress, average body habitus and healthy appearing HEENT normocephalic Face and Sinus: normal facial exam Nose: external nose normal Mouth: oral and palatal mucosa normal Eyes PERRL, EOMs intact bilaterally, conjunctivae normal and no scleral icterus Neck full ROM Chest inspection of chest normal Resp normal respiratory effort, normal air movement, no retractions and clear to auscultation bilaterally Cardio regular rate, regular rhythm, S1 normal heart sound, S2 normal heart sound, no murmurs, no rub, no gallops and peripheral pulses 2+ throughout Jugular Venous Distention: Negative for JVD GI normal to inspection, nondistended, normoactive bowel sounds, soft to palpation and non-distended Neuro oriented x3, CN's II-XII intact bilaterally, moves all extremities and no sensory deficits noted Risk Stratification Risk Stratification Applicable: Yes Age >/= 65: No >/= 3 CAD Risk Factors (HTN, HLD, DM, family hx of CAD, or current smoker): Yes Aspirin Use in the Past 7 Days: No Severe Angina (>/= episodes in 24 hours): No EKG ST Changes >/= 0.5mm: No Positive Cardiac Marker: No DAV Risk Stratification Score: 1 DAV % Risk: 5% Risk Charges/Coding Visit Charges Office Visits / Consults: 71794 IP Consult L4 Objective Data Vital Signs: Vital Signs Temp Pulse Resp BP Pulse Ox 97.3 F L 86 16 161/96 H 94 07/18/21 09:11 07/18/21 09:11 07/18/21 09:11 07/18/21 09:11 07/18/21 09:11 Oxygen Flow Rate (L/min) 2.5 Oxygen Delivery Method Room Air Weight: 205 lb 0.478 oz Body Mass Index (BMI) 32.1 Intake & Output: Intake and Output for Last 24 Hours 07/16/21 07/17/21 07/18/21 23:59 23:59 23:59 Intake Total 1160 / 1460 420 / 420 Output Total 2125 / 2525 800 / 800 Balance -965 / -1065 -380 / -380 Lab / Micro Data Result Diagrams: 07/18/21 05:02 07/18/21 05:02 Labs: Laboratory Results - last 24 hr 07/17/21 12:12: POC Glucose 240 H 07/17/21 16:55: POC Glucose 210 H 07/17/21 21:35: POC Glucose 247 H 07/18/21 05:02: WBC 11.0, RBC 6.04, Hgb 14.3, Hct 45.4, MCV 75.2 L, MCH 23.7 L, MCHC 31.5 L, RDW Std Deviation 37.2, RDW Coeff of Marcela 13.9, Plt Count 346, MPV 9.2, Immature Gran % (Auto) 0.500, Neut % (Auto) 65.0, Lymph % (Auto) 21.7, [place] % (Auto) 10.3 H, Eos % (Auto) 2.0, Baso % (Auto) 0.5, Absolute Neuts (auto) 7.1, Absolute Lymphs (auto) 2.38, Nucleated RBC % 0 07/18/21 05:02: Sodium 135 L, Potassium 3.4 L, Chloride 101, Carbon Dioxide 28.0, Anion Gap 6, BUN 19 H, Creatinine 0.92, Estim Creat Clear Calc 86.68, Est GFR (MDRD) Af Amer 112, Est GFR (MDRD) Non-Af 92, BUN/Creatinine Ratio 20.6 H, Glucose 173 H, Calcium 9.3 07/18/21 06:30: POC Glucose 192 H 07/18/21 10:58: POC Glucose 281 H Cardiology Labs/Tests 07/18/21 05:02: WBC 11.0, RBC 6.04, Hgb 14.3, Hct 45.4, MCV 75.2 L, MCH 23.7 L, MCHC 31.5 L, Plt Count 346, MPV 9.2, Immature Gran % (Auto) 0.500, Neut % (Auto) 65.0, Lymph % (Auto) 21.7, [place] % (Auto) 10.3 H, Eos % (Auto) 2.0, Baso % (Auto) 0.5, Absolute Neuts (auto) 7.1, Nucleated RBC % 0 07/18/21 05:02: Sodium 135 L, Potassium 3.4 L, Chloride 101, Carbon Dioxide 28.0, Anion Gap 6, BUN 19 H, Creatinine 0.92, Est GFR (MDRD) Af Amer 112, Est GFR (MDRD) Non-Af 92, BUN/Creatinine Ratio 20.6 H, Glucose 173 H, Calcium 9.3 EKG: Sinus tachycardia Left axis deviation Right bundle branch block Left ventricular hypertrophy Abnormal ECG Radiography Diagnostic Testing: Radiology Impression Echocardiogram 07/17/21 04:43 Interpretation Summary The study was technically difficult. Contrast injection was performed. Mild segmental systolic dysfunction (see wall motion). The estimated ejection fraction is 45 %. The left atrium is mildly enlarged. There is mild mitral annular calcification. Mild (1+) mitral valve insufficiency. Mild tricuspid valve insufficiency. Right ventricular systolic pressure estimated to be 22 mmHg. Transmitral doppler flow suggestive of impaired relaxation of left ventricle Ordering Physician: Ej Love Referring Physician: Kyaw Schmidt Performed By: Edgardo Gutiérrez RCS Documented by User: Dr. Jean Ocasio MD 07/18/21 15:39 Assessment & Plan Assessment/Plan (1) Hypertensive emergency: (2) Pulmonary edema: QUALIFIERS: Chronicity: acute Qualified Code(s): J81.0 - Acute pulmonary edema (3) Cardiomyopathy: PLAN: I saw this patient at bedside along with the midlevel review all the current evaluation here in the hospital, EKG cardiac telemetry Diagnostic tests including the lab current medication as well as echocardiogram and agree with the current plan of management Patient will follow up with the [facility] cardiology team as an outpatient once he is stable with the plan for evaluation with myocardial fusion study. HPI Consult Data Date of Consult: 07/18/21 [facility] Medical History Diabetes High cholesterol Hypertension Home Medications amlodipine-benazepril 1 ea PO QHS 06/24/15 [History Last Taken Unknown] aspirin 81 mg tablet,delayed release 81 mg PO DAILY 10/27/20 [History Last Taken Unknown] bupropion HCl 150 mg tablet,12 hr sustained-release 150 mg PO BID 10/27/20 [History Last Taken Unknown] cholecalciferol (vitamin D3) 1,250 mcg (50,000 unit) capsule 1,250 mcg PO QWEEK 10/27/20 [History Last Taken Unknown] dulaglutide 1.5 mg/0.5 mL subcutaneous pen injector 1.5 mg SUBCUT QWEEK 10/27/20 [History Last Taken Unknown] empagliflozin 25 mg tablet 25 mg PO DAILY 10/27/20 [History Last Taken Unknown] glimepiride 2 mg tablet 2 mg PO DAILY 10/27/20 [History Last Taken Unknown] losartan 100 mg tablet 100 mg PO DAILY 10/27/20 [History Last Taken Unknown] metoprolol tartrate 25 mg tablet 25 mg PO BID 10/27/20 [History Last Taken Unknown] pioglitazone 30 mg tablet 30 mg PO DAILY 10/27/20 [History Last Taken Unknown] pravastatin 40 mg tablet 40 mg PO QHS 10/27/20 [History Last Taken Unknown] prednisone 10 mg tablet 10 mg PO .COMPLEX #30 tab 10/27/20 [Rx Last Taken Unknown] Allergy/AdvReac Type Severity Reaction Status Date / Time No Known Allergies Allergy Verified 11/17/20 11:29 Family History adopted Surgical History H/O hernia repair Social History household members: spouse number of children: 0 service: Yes ([employer]) current occupational status: employed current gender identity: male Smoking Status: Never smoker Lab / Micro Data Result Diagrams: 07/18/21 05:02 07/18/21 05:02
--- NOTE | 2021-07-18 14:24 | RDU_ITS ---
Reason For Study: Hypertension Right Renal Artery Left Renal Artery Right renal artery ostium Left renal artery ostium 165.6/49 131.4/39.3 RSV/EDV. PSV/EDV. Right renal artery proximal Left renal artery proximal PSV/EDV 127/43.7 PSV/EDV. 168.2/64.5 . Right renal artery mid 146.8/43.7 Left renal artery mid 155.2/64.5 PSV/EDV. PSV/EDV . Right renal artery distal Left renal artery distal 153.4/48.1 142.5/45.9 PSV/EDV. PSV/EDV. Right RAR 1.68. Left RAR 1.92. Right Renal Parenchyma Left Renal Parenchyma Upper Pole Medula 40.1/14.5 Left upper pole medulla 40.4/14.8 PSV/EDV. PSV/EDV . Right upper pole medulla EDR 0.36 . Left upper pole medulla EDR 0.37 . Right upper pole medulla R.I. Left upper pole medulla R.I. 0.63 . 0.64 . UP Cortex 24.8/9.3 PSV/EDV. Upper Kurt Cortx 18.2/6.3 PSV/EDV. Left upper pole cortex EDR 0.38 . Right upper pole cortex EDR 0.35 . Left upper pole cortex R.I. 0.62 . Right upper pole cortex R.I. 0.65 . Left lower Pole medulla 39.5/14.8 Right lower Pole medulla 42.8/15.4 PSV/EDV . PSV/EDV . Left lower pole medulla EDR 0.38 . Right lower pole medulla EDR 0.36 . Left lower pole medulla R.I. 0.62 . Right lower pole medulla R.I. Lower Pole Cortx 23.9/8.4 PSV/EDV. 0.64 . Left lower pole cortex EDR 0.35 . Lower Pole Cortex 20/7.2 PSV/EDV. Left lower pole cortex R.I. 0.65 . Right lower pole cortex EDR 0.36 . Left Renal Hilar Right lower pole cortex R.I. 0.64 . LT Hilar avg 59.1/20.5 PSV/EDV . Right Renal Hilar Left hilar acceleration time 40 Right Hilar avg 69.5/19.8 PSV/EDV. m/sec. Right hilar acceleration time 30 Left Renal Dimensions m/sec. Left kidney size 12.62 cm . Right Renal Dimensions Left cortical dimension 2.21 cm . Right kidney size 12.10 cm . Right cortical dimension 1.98 cm . Aorta Proximal abdominal aorta 1.58 x 1.58 cm . Proximal abdominal aorta peak systolic velocity is 87.6 cm/sec . Distal abdominal aorta 1.47 x 1.41 cm . Distal abdominal aorta peak systolic velocity is 120.5 cm/sec . VL/Renal Artery Duplex Ultrasound Interpretation Summary Maximal aortic diameter proximally at 1.58 x 1.58 cm which is normal <60% stenosis bilateral renal arteries Right renal length normal at 12.1 cm Left renal length normal at 12.62 cm Ordering Physician: Lyn Huber Referring Physician: Kyaw Schmidt MD Performed By: Hyacinth Agarwal RVT
[2021-07-18 16:51] LABS: Bedside Glucose 182 mg/dL (70-110)
[2021-07-18] MEDS: 0.9% Saline Lock 10 ML Syringe IV ×2 (18:15→23:34)
[2021-07-18] MEDS: Lisinopril 20 MG Tablet PO (21:57)
[2021-07-18] MEDS: Pravastatin 40 MG Tablet PO (21:58)
[2021-07-18] MEDS: amLODIPine 10 MG Tablet PO (21:58)
[2021-07-18 22:11] LABS: Bedside Glucose 214 mg/dL (70-110)
[2021-07-18] MEDS: hydrALAZINE 20 MG/ML Vial 10 MG IV (23:34)
[2021-07-19] VITALS (8 sets, daily range): BP systolic 129–160; BP diastolic 76–96; PULSE 74–84; RESP 16–18; TEMP 36.3–36.4; O2SAT 94–98
[2021-07-19 06:46] LABS: Bedside Glucose 187 mg/dL (70-110)
[2021-07-19] MEDS: Nitroglycerin Oint 1 INCH PACKET TD ×2 (07:02→10:54)
[2021-07-19 07:06] LABS: Anion Gap 8 (5-15); BUN 29 mg/dL (7-18); BUN/Creat Ratio 30.1 RATIO (10-20); Calcium,Total 9.9 mg/dL (8.5-10.1); Chloride 102 mmol/L (98-107); Creatinine, Serum 0.96 mg/dL (0.70-1.30); EST Glomerular Filtration Rate 88 mL/min (>60); Est Glom Filt Rate - Afr Amer 106 mL/min (>60); Estimated Creatinine Clearance 83.07 ml/min; Glucose 172 mg/dL (74-106); Potassium 3.8 mmol/L (3.5-5.1); Sodium Level 134 mmol/L (136-145)
--- NOTE | 2021-07-19 08:03 | PN.CARD_ITS ---
Subjective Subjective Pt is feeling well. He denies chest pain/SOB. He is wanting to go home today. Objective Data Vital Signs: Vital Signs Temp Pulse Resp BP Pulse Ox 97.4 F L 78 16 157/86 H 97 07/19/21 03:39 07/19/21 07:02 07/19/21 03:39 07/19/21 07:02 07/19/21 07:13 Oxygen Flow Rate (L/min) 2.5 Oxygen Delivery Method Room Air Weight: 201 lb 15.095 oz Body Mass Index (BMI) 32.1 Intake & Output: Intake and Output for Last 24 Hours 07/17/21 07/18/21 07/19/21 23:59 23:59 23:59 Intake Total 1160 / 1460 1979 / 1979 Output Total 2125 / 2525 1402 / 1402 Balance -965 / -1065 578 / 578 Lab / Micro Data Result Diagrams: 07/18/21 05:02 07/19/21 06:15 Labs: Laboratory Results - last 24 hr 07/18/21 10:58: POC Glucose 281 H 07/18/21 16:40: POC Glucose 182 H 07/18/21 21:51: POC Glucose 214 H 07/19/21 06:15: Sodium 134 L, Potassium 3.8, Chloride 102, Carbon Dioxide 24.0, Anion Gap 8, BUN 29 H, Creatinine 0.96, Estim Creat Clear Calc 83.07, Est GFR (MDRD) Af Amer 106, Est GFR (MDRD) Non-Af 88, BUN/Creatinine Ratio 30.1 H, Glucose 172 H, Calcium 9.9 07/19/21 06:37: POC Glucose 187 H Cardiology Labs/Tests 07/19/21 06:15: Sodium 134 L, Potassium 3.8, Chloride 102, Carbon Dioxide 24.0, Anion Gap 8, BUN 29 H, Creatinine 0.96, Est GFR (MDRD) Af Amer 106, Est GFR (MDRD) Non-Af 88, BUN/Creatinine Ratio 30.1 H, Glucose 172 H, Calcium 9.9 Rhythm:SR Physical Exam Const alert, oriented x3, no apparent distress, average body habitus and healthy appea ring HEENT normocephalic Face and Sinus: normal facial exam Nose: external nose normal Mouth: oral and palatal mucosa normal Eyes PERRL, EOMs intact bilaterally, conjunctivae normal and no scleral icterus Neck full ROM Chest inspection of chest normal Resp normal respiratory effort, normal air movement, no retractions and clear to auscultation bilaterally Cardio regular rate, regular rhythm, S1 normal heart sound, S2 normal heart sound, no murmurs, no rub, no gallops and peripheral pulses 2+ throughout Jugular Venous Distention: Negative for JVD GI normal to inspection, nondistended, normoactive bowel sounds, soft to palpation and non-distended Neuro oriented x3, CN's II-XII intact bilaterally, moves all extremities and no sensory deficits noted Charges/Coding Visit Charges Inpatient E&M: 74770 Subs Hosp L3
[2021-07-19] MEDS: Potassium Chloride Oral Tablet 20 MEQ 40 MEQ PO (09:25)
[2021-07-19] MEDS: Furosemide 40 MG/4 ML Vial IV (09:25)
[2021-07-19] MEDS: Aspirin E.C. 81 MG Tablet PO (09:25)
[2021-07-19] MEDS: Enoxaparin 40 MG/0.4 ML Syringe SC (09:26)
[2021-07-19] MEDS: Empagliflozin 25 MG Tablet PO (09:26)
[2021-07-19] MEDS: Metoprolol Tartrate 25 MG Tablet PO (09:26)
[2021-07-19] MEDS: Glimepiride 2 MG Tablet PO (09:26)
[2021-07-19] MEDS: buPROPion (SR) 150 MG Tablet.SA PO (09:26)
[2021-07-19] MEDS: 0.9% Saline Lock 10 ML Syringe IV (09:27)
--- NOTE | 2021-07-19 10:07 | PN.CARD_ITS ---
Documented by User: MENDEZ Clark 07/19/21 10:16 Subjective Subjective Pt has no complaints today. He has not had any CP/SOB. He would like to go home Objective Data Vital Signs: Vital Signs Temp Pulse Resp BP Pulse Ox 97.5 F L 84 16 160/96 H 95 07/19/21 09:22 07/19/21 09:26 07/19/21 09:22 07/19/21 09:26 07/19/21 09:22 Oxygen Flow Rate (L/min) 2.5 Oxygen Delivery Method Room Air Weight: 201 lb 15.095 oz Body Mass Index (BMI) 32.1 Intake & Output: Intake and Output for Last 24 Hours 07/17/21 07/18/21 07/19/21 23:59 23:59 23:59 Intake Total 1160 / 1460 1979 Output Total 2125 / 2525 1402 / 1402 Balance -965 / -1065 578 / 578 Lab / Micro Data Result Diagrams: 07/18/21 05:02 07/19/21 06:15 Labs: Laboratory Results - last 24 hr 07/18/21 10:58: POC Glucose 281 H 07/18/21 16:40: POC Glucose 182 H 07/18/21 21:51: POC Glucose 214 H 07/19/21 06:15: Sodium 134 L, Potassium 3.8, Chloride 102, Carbon Dioxide 24.0, Anion Gap 8, BUN 29 H, Creatinine 0.96, Estim Creat Clear Calc 83.07, Est GFR (MDRD) Af Amer 106, Est GFR (MDRD) Non-Af 88, BUN/Creatinine Ratio 30.1 H, Gluco se 172 H, Calcium 9.9 07/19/21 06:37: POC Glucose 187 H Cardiology Labs/Tests 07/19/21 06:15: Sodium 134 L, Potassium 3.8, Chloride 102, Carbon Dioxide 24.0, Anion Gap 8, BUN 29 H, Creatinine 0.96, Est GFR (MDRD) Af Amer 106, Est GFR (MDRD) Non-Af 88, BUN/Creatinine Ratio 30.1 H, Glucose 172 H, Calcium 9.9 Rhythm: SR Physical Exam Const alert, oriented x3, no apparent distress, average body habitus and healthy appearing HEENT normocephalic Face and Sinus: normal facial exam Nose: external nose normal Mouth: oral and palatal mucosa normal Eyes PERRL, EOMs intact bilaterally, conjunctivae normal and no scleral icterus Neck full ROM Chest inspection of chest normal Resp normal respiratory effort, normal air movement, no retractions and clear to auscultation bilaterally Cardio regular rate, regular rhythm, S1 normal heart sound, S2 normal heart sound, no murmurs, no rub, no gallops and peripheral pulses 2+ throughout Jugular Venous Distention: Negative for JVD GI normal to inspection, nondistended, normoactive bowel sounds, soft to palpation and non-distended Neuro oriented x3, CN's II-XII intact bilaterally, moves all extremities and no sensory deficits noted Assessment & Plan Assessment/Plan (1) Hypertensive emergency: (2) Pulmonary edema: QUALIFIERS: Chronicity: acute Qualified Code(s): J81.0 - Acute pulmonary edema (3) Cardiomyopathy: PLAN: * Patient's medications have been restarted. Suspect that his pulmonary edema was likely related to uncontrolled blood pressure readings. BP has been improved. Recommend that he follow up in the office to further optimize his medications. * renal ultrasound- pending * It is noted that his ejection fraction is 45%. His troponin have been negative. At this time we will treat with medications we will continue with his metoprolol and his ARB. Will order an outpatient stress test to evaluate his decreased EF with wall motion abnormalities. He may ultimately need a diagnostic heart cath, would like to assure that he is complaint with his blood pressure medications, and that this is better controlled before pursuing this. Charges/Coding Visit Charges Inpatient E&M: 28122 Subs Hosp L3 Documented by User: Dr. Jean Ocasio MD 07/19/21 15:28 Lab / Micro Data Result Diagrams: 07/18/21 05:02 07/19/21 06:15 Assessment & Plan Assessment/Plan (1) Hypertensive emergency: (2) Pulmonary edema: QUALIFIERS: Chronicity: acute Qualified Code(s): J81.0 - Acute pulmonary edema (3) Cardiomyopathy: PLAN: I saw this patient and examined along with the nursing staff I independently reviewed all the current data in the hospital including cardiac telemetry current lab evaluation and imaging views in addition to his current medication I agree with the cardiac care plan and recommendation as by the midlevel d ocumentation
[2021-07-19 10:51] LABS: Bedside Glucose 152 mg/dL (70-110)
[2021-07-19] MEDS: Insulin Lispro 100 UNIT/ML INSULN.PEN SC (10:55)
[2021-07-19 11:05] LABS: Bedside Glucose 406 mg/dL (70-110)
--- NOTE | 2021-07-19 11:48 | DCINST_ITS ---
Discharge Instructions Diet Discharge Diet: Low fat / Low cholesterol and 2000 mg Sodium Diet Activity Discharge Activity: Return to Normal Activity Dressing / Incision Call your doctor if you observe: Shortness of breath, Dizziness and Chest pain Follow Up Care Test Results: Test results from this visit will be discussed in further detail at your follow-up appointment, if applicable. Discharge Plan Admission Admit Date/Time: 07/17/21 03:21 Primary Reason for Your Visit: Hypertensive emergency Attending Provider: Rowena Acuña Primary Care Provider: Kyaw Schmidt Consulting Providers: Jean Ocasio Instructions Additional Instructions / Restrictions: Check blood pressure twice daily, morning and night and document findings to report to cardiology at follow-up. You will need to follow-up with PCP regarding diabetic regimen. Discharge Orders/Prescriptions Prescriptions: Continued cholecalciferol (vitamin D3) 1,250 mcg (50,000 unit) capsule 1,250 mcg PO QWEEK RF: 0 bupropion HCl 150 mg tablet sustained-release 12 hr 150 mg PO BID 30 Days Qty: 60 RF: 0 pravastatin 40 mg tablet 40 mg PO QHS 30 Days Qty: 30 RF: 0 aspirin [Adult Aspirin Regimen] 81 mg tablet,delayed release (DR/EC) 81 mg PO DAILY 30 Days Qty: 30 RF: 0 glimepiride 2 mg tablet 2 mg PO DAILY 30 Days Qty: 30 RF: 0 amlodipine-benazepril 1 EACH capsule 1 ea PO QHS 30 Days Qty: 30 RF: 0 metoprolol tartrate 25 mg tablet 25 mg PO BID 30 Days Qty: 60 RF: 0 Jardiance 25 mg tablet 25 mg PO DAILY 30 Days Qty: 30 RF: 0 Trulicity 1.5 mg/0.5 mL pen injector 1.5 mg subcut QWEEK 30 Days Qty: 2.5 RF: 0 Discontinued prednisone 10 mg tablet 10 mg PO .COMPLEX Qty: 30 RF: 0 pioglitazone 30 mg tablet 30 mg PO DAILY RF: 0 losartan 100 mg tablet 100 mg PO DAILY RF: 0 Referrals / Follow Up: Kyaw Schmidt MD [Primary Care Provider] - In 1 Week Lyn Huber PA [PHYSICIAN MOTOR VEHICLES INSPECTOR] - See Referral Note (As scheduled 07/18/2021) Disposition Disposition (needs filled in before D/C Order can be placed): Home, Self Care
--- NOTE | 2021-07-19 12:09 | PCM.DC.SUM ---
Documented by User: Jewel Mcguire NP, CHANNEL MACHINE OPERATOR-C 07/19/21 12:39 Providers Date of Admission: 07/17/21 Date of Discharge: 07/19/21 Primary Care Physician: Dr. Kyaw Schmidt MD Consultations 07/18/21 09:37 Consult: Cardiology Routine Consulting Provider: Jean Ocasio Reason for Consult: Heart failure with reduced ejection fraction EMERGENT Consult: No MD Notified: Yes Date Notified: 07/18/21 Time Notified: 10:01 Method of Notification: Text Reason For Visit: HYPERTENSIVE EMERGENCY,PULMONARY EDEMA Diagnosis Discharge Diagnosis (1) Hypertensive emergency: Status: Acute Code(s): I16.1 - Hypertensive emergency (2) Pulmonary edema: Status: Acute Code(s): J81.1 - Chronic pulmonary edema Qualifiers: Chronicity: acute Qualified Code(s): J81.0 - Acute pulmonary edema (3) Cardiomyopathy: Status: Acute Code(s): I42.9 - Cardiomyopathy, unspecified Medications at Discharge Home Medications cholecalciferol (vitamin D3) 1,250 mcg (50,000 unit) capsule 1,250 mcg PO QWEEK 10/27/20 amlodipine-benazepril 1 ea PO QHS 30 Days #30 cap 07/19/21 aspirin [Adult Aspirin Regimen] 81 mg PO DAILY 30 Days #30 tab 07/19/21 bupropion HCl 150 mg PO BID 30 Days #60 ea 07/19/21 glimepiride 4 mg PO DAILY #30 tab 07/19/21 metoprolol tartrate 25 mg PO BID 30 Days #60 tab 07/19/21 pravastatin 40 mg PO QHS 30 Days #30 tab 07/19/21 Hospital Course Operations None Procedures 2-D Echocardiogram Summary of Care Provided Hospital Course: Patient is a 50-year-old male admitted 07/17/2021 due to shortness of breath. 1. Hypertensive emergency-blood pressure on admission 232/136. Blood pressure improved. Resume previously prescribed amlodipine/benazepril, metoprolol. Home medication list shows losartan, unclear what patient was taking prior however losartan discontinued as patient is on SKYLER inhibitor. Instructed patient to continue home blood pressure monitoring and report to cardiology at follow-up for further med adjustment. Follow-up with cardiology as scheduled. 2. Acute heart failure with reduced ejection fraction/cardiomyopathy-echocardiogram demonstrates an EF of 45%, mild mitral valve insufficiency, RVSP estimated to be 22 mmHg. No prior echo for comparison. Chest x-ray and admission with pulmonary edema. BNP 118. Cardiology consulted given mildly reduced EF with no prior history. Plan for outpatient follow-up with cardiology with outpatient stress test. 3. Acute hypoxic respiratory failure secondary to flash pulmonary edema related to #1- Oxygen now stable on room air following diuresis. Walking pulse ox completed prior to discharge and patient did not require further supplemental oxygen. 4. Type 2 diabetes mellitus-patient has not been taking his diabetic medications for several months. External pharmacy list glimepiride only, prescribed in October. However, home medication lists Trulicity, Jardiance, glimepiride, Actos. A1c May 2020 7.1%. Will discharge on glimepiride only with repeat A1c and further med adjustment by PCP as it is unclear what patient has been taking prior. 5. GRECIA-continue BiPAP. 6. Hyperlipidemia-continue statin. 7. Anxiety/depression-on bupropion. Physical Exam Const alert, oriented x3 and no apparent distress Orientation / Consciousness: awake, oriented to person, oriented to place and oriented to time HEENT normocephalic and moist oral mucous membranes Eyes PERRL, EOMs intact bilaterally and conjunctivae normal Neck no lymphadenopathy Resp normal respiratory effort and clear to auscultation bilaterally Cardio regular rate, regular rhythm and no murmurs Peripheral Pulses: pulses 2+ throughout GI normal to inspection, nondistended, normoactive bowel sounds, non-tender and non-distended Extremity normal to inspection Skin no rashes or lesions noted Lesions: no lesions Rashes: no rashes Trauma: no lacerations or abrasions Neuro CN's II-XII intact bilaterally, no focal motor deficits, no sensory deficits noted and deep tendon reflexes 2+ bilaterally Psych mental status grossly normal and affect normal Patient seen and examined prior to discharge. Physical assessment as noted above. Patient is stable for discharge with follow up recommendations as noted above. This patient was seen by JERRY Torre under the supervision of Dr. Acuña. Time spent examining patient, reviewing data and subsequent management of care: 15 Minutes Weight / BMI Weight Weight: 201 lb 15.095 oz Body Mass Index (BMI) 32.1 ABG / Lab / Microbiology Data Result Diagrams: 07/18/21 05:02 07/19/21 06:15 Laboratory: Laboratory Results - last 24 hr 07/18/21 16:40: POC Glucose 182 H 07/18/21 21:51: POC Glucose 214 H 07/19/21 06:15: Sodium 134 L, Potassium 3.8, Chloride 102, Carbon Dioxide 24.0, Anion Gap 8, BUN 29 H, Creatinine 0.96, Estim Creat Clear Calc 83.07, Est GFR (MDRD) Af Amer 106, Est GFR (MDRD) Non-Af 88, BUN/Creatinine Ratio 30.1 H, Glucose 172 H, Calcium 9.9 07/19/21 06:37: POC Glucose 187 H 07/19/21 09:20: POC Glucose 152 H 07/19/21 10:52: POC Glucose 406 H Microbiology: Microbiology 07/17/21 01:04 Nasal Secretion SARS-CoV-2 Antigen (Rapid) - Final D/C Instructions Discharge Diet: Low fat / Low cholesterol and 2000 mg Sodium Diet Call your doctor if you observe: Shortness of breath, Dizziness and Chest pain Meaningful Use Info Meaningful Use Diagnoses (Choose all that apply): CHF CHF SKYLER/ARB ordered at discharge?: Yes Documented LVEF (%): 45 Discharge Plan Admission Admit Date/Time: 07/17/21 03:21 Primary Reason for Your Visit: Hypertensive emergency Attending Provider: Rowena Acuña Primary Care Provider: Kyaw Schmidt Consulting Providers: Jean Ocasio Instructions Additional Instructions / Restrictions: Check blood pressure twice daily, morning and night and document findings to report to cardiology at follow-up. You will need to follow-up with PCP regarding diabetic regimen. Discharge Orders/Prescriptions Prescriptions: New glimepiride 4 mg tablet 4 mg PO DAILY Qty: 30 RF: 0 Continued cholecalciferol (vitamin D3) 1,250 mcg (50,000 unit) capsule 1,250 mcg PO QWEEK RF: 0 bupropion HCl 150 mg tablet sustained-release 12 hr 150 mg PO BID 30 Days Qty: 60 RF: 0 pravastatin 40 mg tablet 40 mg PO QHS 30 Days Qty: 30 RF: 0 aspirin [Adult Aspirin Regimen] 81 mg tablet,delayed release (DR/EC) 81 mg PO DAILY 30 Days Qty: 30 RF: 0 amlodipine-benazepril 1 EACH capsule 1 ea PO QHS 30 Days Qty: 30 RF: 0 metoprolol tartrate 25 mg tablet 25 mg PO BID 30 Days Qty: 60 RF: 0 Discontinued prednisone 10 mg tablet 10 mg PO .COMPLEX Qty: 30 RF: 0 glimepiride 2 mg tablet 2 mg PO DAILY RF: 0 Trulicity 1.5 mg/0.5 mL pen injector 1.5 mg subcut QWEEK RF: 0 Jardiance 25 mg tablet 25 mg PO DAILY RF: 0 pioglitazone 30 mg tablet 30 mg PO DAILY RF: 0 losartan 100 mg tablet 100 mg PO DAILY RF: 0 Referrals / Follow Up: Kyaw Schmidt MD [Primary Care Provider] - In 1 Week Lyn Huber PA [PHYSICIAN ROOF BOLTER HELPER] - See Referral Note (As scheduled 07/18/2021) Disposition Disposition (needs filled in before D/C Order can be placed): Home, Self Care Documented by User: Dr. Rowena Acuña MD 07/19/21 15:29 Providers Date of Admission: 07/17/21 Reason For Visit: HYPERTENSIVE EMERGENCY,PULMONARY EDEMA Medications at Discharge Home Medications cholecalciferol (vitamin D3) 1,250 mcg (50,000 unit) capsule 1,250 mcg PO QWEEK 10/27/20 amlodipine-benazepril 1 ea PO QHS 30 Days #30 cap 07/19/21 aspirin [Adult Aspirin Regimen] 81 mg PO DAILY 30 Days #30 tab 07/19/21 bupropion HCl 150 mg PO BID 30 Days #60 ea 07/19/21 glimepiride 4 mg PO DAILY #30 tab 07/19/21 metoprolol tartrate 25 mg PO BID 30 Days #60 tab 07/19/21 pravastatin 40 mg PO QHS 30 Days #30 tab 07/19/21 ABG / Lab / Microbiology Data Result Diagrams: 07/18/21 05:02 07/19/21 06:15 Discharge Plan Admission Admit Date/Time: 07/17/21 03:21 Primary Reason for Your Visit: Hypertensive emergency Attending Provider: Rowena Acuña Primary Care Provider: Kyaw Schmidt Consulting Providers: Jean Ocasio Instructions Additional Instructions / Restrictions: Check blood pressure twice daily, morning and night and document findings to report to cardiology at follow-up. You will need to follow-up with PCP regarding diabetic regimen. Discharge Orders/Prescriptions Prescriptions: New glimepiride 4 mg tablet 4 mg PO DAILY Qty: 30 RF: 0 Continued cholecalciferol (vitamin D3) 1,250 mcg (50,000 unit) capsule 1,250 mcg PO QWEEK RF: 0 bupropion HCl 150 mg tablet sustained-release 12 hr 150 mg PO BID 30 Days Qty: 60 RF: 0 pravastatin 40 mg tablet 40 mg PO QHS 30 Days Qty: 30 RF: 0 aspirin [Adult Aspirin Regimen] 81 mg tablet,delayed release (DR/EC) 81 mg PO DAILY 30 Days Qty: 30 RF: 0 amlodipine-benazepril 1 EACH capsule 1 ea PO QHS 30 Days Qty: 30 RF: 0 metoprolol tartrate 25 mg tablet 25 mg PO BID 30 Days Qty: 60 RF: 0 Discontinued prednisone 10 mg tablet 10 mg PO .COMPLEX Qty: 30 RF: 0 glimepiride 2 mg tablet 2 mg PO DAILY RF: 0 Trulicity 1.5 mg/0.5 mL pen injector 1.5 mg subcut QWEEK RF: 0 Jardiance 25 mg tablet 25 mg PO DAILY RF: 0 pioglitazone 30 mg tablet 30 mg PO DAILY RF: 0 losartan 100 mg tablet 100 mg PO DAILY RF: 0 Referrals / Follow Up: Kyaw Schmidt MD [Primary Care Provider] - In 1 Week Lyn Huber PA [PHYSICIAN ROOF BOLTER HELPER] - See Referral Note (As scheduled 07/18/2021) Disposition Disposition (needs filled in before D/C Order can be placed): Home, Self Care Charges/Coding Addendum Addendum: Patient seen by Jewel EDWARDS under my supervision Patient is a 50-year-old male with a past medical history as outlined who was admitted through the ED on 07/17/2021 with a complaint of sudden onset shortness of breath. When the paramedics arrived he was saturating at 71% and required nonrebreather mask and subsequently BiPAP in the ED. He denied chest pain, palpitations, dizziness, nausea vomiting. Was found to have markedly elevated blood pressure in the ED. He admitted to not taking his blood pressure medications because of cost constraints. He was admitted and managed for hypertensive emergency. He was given IV Lasix and nitroglycerin paste. Hospital course was also complicated by hypokalemia which was replaced. His blood pressure medications were resumed. 2D echo was ordered which showed EF of 45% and mild mitral valve insufficiency with RVSP of 22 mmHg. Chest x-ray showed pulmonary edema and BNP was 118. Was also diuresed with IV Lasix on account of acute heart failure. Cardiology was consulted and his medications were adjusted. Blood pressure control improved and he was discharged home on 07/19/2021 on amlodipine and benazepril as well as metoprolol. He is to follow-up with his primary care doctor and cardiology in 1 to 2 weeks. He was counseled on the importance of compliance with his medications. Of note, patient's A1c was 7.1 from May 2020. He had not been taking his medications for diabetes namely Trulicity, Jardiance and glimepiride as well as Actos. Based on his noncompliance, he was discharged on glimepiride and is to follow-up with his PCP in 1 to 2 weeks. Patient was seen and examined prior to discharge. He had no active complaints and felt much better. Review of systems otherwise negative. Labs and vitals reviewed. Home medication reviewed and reconciled. O/E: Const alert, oriented x3 and no apparent distress Orientation / Consciousness: awake, oriented to person, oriented to place and oriented to time HEENT normocephalic and moist oral mucous membranes Eyes PERRL, EOMs intact bilaterally and conjunctivae normal Neck no lymphadenopathy Resp normal respiratory effort and clear to auscultation bilaterally Cardio regular rate, regular rhythm and no murmurs Peripheral Pulses: pulses 2+ throughout GI normal to inspection, nondistended, normoactive bowel sounds, non-tender and non-distended Extremity normal to inspection Skin no rashes or lesions noted Lesions: no lesions Rashes: no rashes Trauma: no lacerations or abrasions Neuro CN's II-XII intact bilaterally, no focal motor deficits, no sensory deficits noted and deep tendon reflexes 2+ bilaterally Psych mental status grossly normal and affect normal Plan is for discharge home today as above. Rest as per Jewel Mcguire CHANNEL MACHINE OPERATOR-C's note, which I have reviewed and endorsed. Total time I spent on the discharge of the patient today-25 minutes with Jewel Mcguire spending 15 minutes making a total of 40 minutes. Visit Charges Inpatient E&M: 50115 Disch Hosp
== END 2021-07-19 13:40 | disposition home or self-care (01) | DRG 304 ==
LOC: ED 03:19 → PCU 03:33
PROVIDERS: Nurse Practitioner Family; Physician Assistant; Admitting Provider Hospitalist; Emergency Provider Emergency Medicine; PCP Family Medicine; Visit Provider Student in an Organized Health Care Education/Training Program
DX: I16.1 Hypertensive emergency (principal); I11.0 Hypertensive heart disease with heart failure; J96.01 Acute respiratory failure with hypoxia; I50.21 Acute systolic (congestive) heart failure; I42.9 Cardiomyopathy, unspecified; E11.65 Type 2 diabetes mellitus with hyperglycemia; E78.00 Pure hypercholesterolemia, unspecified; E87.6 Hypokalemia; I34.0 Nonrheumatic mitral (valve) insufficiency; E78.5 Hyperlipidemia, unspecified; Z20.822 Contact with and (suspected) exposure to COVID-19; G47.33 Obstructive sleep apnea (adult) (pediatric); F32.A Depression, unspecified; F41.9 Anxiety disorder, unspecified; E66.9 Obesity, unspecified; Z79.84 Long term (current) use of oral hypoglycemic drugs; Z79.82 Long term (current) use of aspirin; Z79.899 Other long term (current) drug therapy
CPT/HCPCS: 36415; 71045; 80048; 82962; 83880; 84443; 84484; 85025; 87426; 93005; 93306; 93975; 94002; 99285; Q9957; A4216; C8929; J1940

== ENCOUNTER 2021-07-25 15:36 | Outpatient (CLI) | payer OTHER, SELFPAY ==
[2021-07-25 18:11] LABS: Hemoglobin A1c 11.5 % (3.8-5.6)
[2021-07-25 18:28] LABS: Anion Gap 4 (5-15); BUN 13 mg/dL (7-18); BUN/Creat Ratio 14.8 RATIO (10-20); Calcium,Total 9.4 mg/dL (8.5-10.1); Chloride 105 mmol/L (98-107); Creatinine, Serum 0.88 mg/dL (0.70-1.30); EST Glomerular Filtration Rate 98 mL/min (>60); Est Glom Filt Rate - Afr Amer 118 mL/min (>60); Glucose 126 mg/dL (74-106); Potassium 3.7 mmol/L (3.5-5.1); Sodium Level 135 mmol/L (136-145)
== END 2021-07-25 23:59 | disposition home or self-care (01) ==
LOC: MFPLAB 15:38
PROVIDERS: PCP Family Medicine; Referring Provider Family Medicine; Visit Provider Family Medicine
DX: E11.8 Type 2 diabetes mellitus with unspecified complications (principal); I10 Essential (primary) hypertension
CPT/HCPCS: 36415; 80048; 83036

== ENCOUNTER → 2022-01-07 | Outpatient (CLI) | payer BC, SELFPAY ==
[2022-01-07 18:30] LABS: ALB/GLOB Ratio 0.9 RATIO (0.9-2.4); AST(SGOT) 14 U/L (15-37); Alanine Aminotransfer ALT/SGPT 27 U/L (16-61); Albumin, Serum 3.6 g/dL (3.2-5.0); Alkaline Phosphatase 82 U/L (45-117); Anion Gap 7 (5-15); BUN 19 mg/dL (7-18); BUN/Creat Ratio 24.9 RATIO (10-20); Chloride 100 mmol/L (98-107); Creatinine, Serum 0.76 mg/dL (0.70-1.30); EST Glomerular Filtration Rate 115 mL/min (>60); Est Glom Filt Rate - Afr Amer 139 mL/min (>60); Globulin 3.9 g/dL (2.2-4.2); Glucose 184 mg/dL (74-106); Potassium 3.8 mmol/L (3.5-5.1); Protein, Total 7.5 g/dL (6.4-8.2); Sodium Level 133 mmol/L (136-145)
[2022-01-07 18:39] LABS: Hemoglobin A1c 10.5 % (3.8-5.6)
[2022-01-07 19:02] LABS: Microalbumin:Creatinine Ratio 509.2 mg/g CRE (<30 mg/g CRE)
== END | disposition home or self-care (01) ==
LOC: MFPLAB 15:18
PROVIDERS: PCP Family Medicine; Referring Provider Family Medicine; Visit Provider Family Medicine
DX: E11.8 Type 2 diabetes mellitus with unspecified complications (principal)
CPT/HCPCS: 36415; 80053; 82043; 82570; 83036

== ENCOUNTER → 2022-06-16 | Outpatient (CLI) | payer BC, SELFPAY ==
[2022-06-16 15:14] LABS: Absolute Lymphocyte Count 2.11 X10^3/uL (0.83-4.51); Absolute Neutrophil Count 5.7 X10^3/uL (2.0-7.7); Basophil# 0.08 X10^3/uL; Basophil% 0.9 % (0-1); Eosinophil# 0.13 X10^3/uL; Eosinophils% 1.5 % (0-5); Hematocrit 43.5 % (40-54); Hemoglobin 13.6 g/dL (13.0-16.5); Lymphocyte # 2.11 X10^3/ul (0.83-4.51); Lymphocyte % 24.2 % (19-41); Mean Corp Hgb Conc 31.3 g/dL (32-36); Mean Corpuscular Hgb 23.9 pg (27.0-32.0); Mean Corpuscular Volume 76.6 fL (80-94); Mean Platelet Vol. 9.9 fl (6.2-12.0); Monocyte# 0.67 X10^3/uL; Monocyte% 7.7 % (0-10); NRBC Flagged by Analyzer 0 % (0-5); Neutrophil # 5.69 X10^3/uL (2.7-7.7); Neutrophil % 65.1 % (47-70); Platelet Count 345 K/mm3 (150-450); RBC Distribution Width CV 14.6 % (11.6-14.6); RBC Distribution Width SD 39.6 fl (35.1-43.9); Red Blood Count 5.68 M/mm3 (4.6-6.2); White Blood Count 8.7 K/mm3 (4.4-11.0)
[2022-06-16 16:10] LABS: ALB/GLOB Ratio 0.9 RATIO (0.9-2.4); AST(SGOT) 18 U/L (15-37); Alanine Aminotransfer ALT/SGPT 34 U/L (16-61); Albumin, Serum 3.6 g/dL (3.2-5.0); Alkaline Phosphatase 91 U/L (45-117); Anion Gap 11 (5-15); BUN 14 mg/dL (7-18); BUN/Creat Ratio 16.6 RATIO (10-20); Chloride 97 mmol/L (98-107); Creatinine, Serum 0.84 mg/dL (0.70-1.30); EST Glomerular Filtration Rate 102 mL/min (>60); Est Glom Filt Rate - Afr Amer 124 mL/min (>60); Globulin 3.8 g/dL (2.2-4.2); Glucose 258 mg/dL (74-106); Potassium 3.9 mmol/L (3.5-5.1); Protein, Total 7.4 g/dL (6.4-8.2); Sodium Level 133 mmol/L (136-145)
== END | disposition home or self-care (01) ==
LOC: MFPLAB 11:53
PROVIDERS: PCP Family Medicine; Visit Provider Family Medicine
DX: E11.8 Type 2 diabetes mellitus with unspecified complications (principal)
CPT/HCPCS: 36415; 80053; 85025

== ENCOUNTER 2022-07-22 06:08 | Emergency (ER) | payer BC, SELFPAY ==
[2022-07-22] VITALS (18 sets, daily range): BP systolic 165–220; BP diastolic 95–179; PULSE 78–100; RESP 2–26; TEMP 36.6; O2SAT 92–97; BMI 35.6
--- NOTE | 2022-07-22 06:24 | CT_ITS ---
We are attempting to reach an attending provider to discuss findings. An addendum with communication details will be sent when the communication is complete. INDICATION: Neuro deficit, acute, stroke suspected EXAMINATION: CT Head Stroke Protocol W/O Contrast Injection TECHNIQUE: Multiple axial images were obtained of the head without intravenous contrast. A radiation dose optimization technique was used for this scan. IV Contrast dosage and agent: None. COMPARISON: None FINDINGS: BRAIN PARENCHYMA: Ovoid parenchymal hemorrhage at posterior right gangliocapsular region measures 2.9 x 1.3 cm axial diameter and 1.7 cm craniocaudal length (3.2 cc volume). No significant intracranial mass effect or midline shift. Chronic appearing lacunar infarct right caudate tail. Mild bilateral deep and subcortical cerebral white matter lucencies. Chronic cerebral involutional changes. CSF SPACES: Prominent cerebral sulci and extraaxial spaces secondary to involutional changes. Cavum septum pellucidum variant noted. No hydrocephalus. Basal cisterns are patent. Intracranial atherosclerotic calcifications. CALVARIUM, SKULL BASE, PARANASAL SINUSES AND MASTOID AIR CELLS: Calvarium is intact. No acute findings within paranasal sinuses. Mastoid air cells are well-pneumatized. ORBITS: No acute findings. CT/STROKE Brain/Head without Cont IMPRESSION: 1. Small right gangliocapsular hemorrhage. Favor spontaneous hypertensive hemorrhage. 2. Cerebral atrophy and chronic small vessel ischemic changes. Electronically Signed: Alonzo Villegas MD at 7:47 EST ,
--- NOTE | 2022-07-22 06:24 | EKG12_ITS ---
Test Reason : Blood Pressure : / mmHG Vent. Rate : 083 BPM Atrial Rate : 083 BPM P-R Int : 172 ms QRS Dur : 156 ms QT Int : 432 ms P-R-T Axes : 040 -53 068 degrees QTc Int : 507 ms Normal sinus rhythm Possible Left atrial enlargement Left axis deviation Right bundle branch block Left ventricular hypertrophy with repolarization abnormality ( R in aVL , Romhilt-Goode ) Inferior infarct , age undetermined , cannot be excluded Abnormal ECG Confirmed by ZEINAB MUÑIZ, MERY ([id number]), map editor MOISES ABREU ([id number]) on 07/24/2022 9:43:06 AM Referred By: Confirmed By:MERY ARRIOLA MD
--- NOTE | 2022-07-22 06:25 | CT_ITS ---
EXAM: CT ANGIOGRAPHY HEAD AND NECK WITH INTRAVENOUS CONTRAST CLINICAL INDICATION: Neuro deficit, acute, stroke suspected TECHNIQUE: [facility] [place]/head and neck CT angiography protocol performed with intravenous contrast. This CT exam was performed using one or more of the following dose reduction techniques: automated exposure control, adjustment of the mA and/or kV according to patient size, and/or use of iterative reconstruction technique. This report was created using [employer] report generation technology. MIP reconstructed images were created and reviewed. CONTRAST: IV 100mL [id number] COMPARISON: CT brain 07/22/2022. FINDINGS: HEAD: Right basal ganglion hemorrhage again noted. RIGHT ANTERIOR CEREBRAL ARTERY: Normal. No significant stenosis at the visualized segments. Anterior communicating artery is present. No aneurysm. RIGHT MIDDLE CEREBRAL ARTERY: Normal. No significant stenosis at the visualized segments. No aneurysm. RIGHT POSTERIOR CEREBRAL ARTERY: Right P-comm is present. No occlusion or significant stenosis. No aneurysm. RIGHT INTRACRANIAL INTERNAL CAROTID ARTERY: Normal. No significant stenosis. No dissection or occlusion. RIGHT INTRACRANIAL VERTEBRAL ARTERY: Normal. No significant stenosis. No dissection or occlusion. LEFT ANTERIOR CEREBRAL ARTERY: Normal. No significant stenosis at the visualized segments. No aneurysm. LEFT MIDDLE CEREBRAL ARTERY: Normal. No significant stenosis at the visualized segments. No aneurysm. LEFT POSTERIOR CEREBRAL ARTERY: Normal. No occlusion or significant stenosis. No aneurysm. LEFT INTRACRANIAL INTERNAL CAROTID ARTERY: Normal. No significant stenosis. No dissection or occlusion. LEFT INTRACRANIAL VERTEBRAL ARTERY: Normal. No significant stenosis. No dissection or occlusion. BASILAR ARTERY: Normal. No significant stenosis. No aneurysm. OTHER VASCULATURE: No vascular malformation. NECK: RIGHT COMMON CAROTID ARTERY: Normal. No significant stenosis. No dissection or occlusion. RIGHT EXTRACRANIAL INTERNAL CAROTID ARTERY: Normal. No significant stenosis. No dissection or occlusion. RIGHT EXTERNAL CAROTID ARTERY: Normal. No occlusion. RIGHT EXTRACRANIAL VERTEBRAL ARTERY: Normal. No significant stenosis. No dissection or occlusion. LEFT COMMON CAROTID ARTERY: Normal. No significant stenosis. No dissection or occlusion. LEFT EXTRACRANIAL INTERNAL CAROTID ARTERY: Small focal calcific plaquing near the origin. No significant stenosis. No dissection or occlusion. LEFT EXTERNAL CAROTID ARTERY: Normal. No occlusion. LEFT EXTRACRANIAL VERTEBRAL ARTERY: Normal. No significant stenosis. No dissection or occlusion. BRACHIOCEPHALIC AND SUBCLAVIAN ARTERIES: Unremarkable as visualized. No occlusion or significant stenosis. LUNG APICES: Unremarkable as visualized. HEAD and NECK: BONES/JOINTS: Normal. No discrete lytic or blastic abnormalities. SOFT TISSUES: Normal. CAROTID STENOSIS REFERENCE USING NASCET CRITERIA: % ICA stenosis = (1 - narrowest ICA diameter/diameter of distal cervical ICA) x 100. Mild - <50% stenosis. Moderate - 50-69% stenosis. Severe - 70-94% stenosis. Near occlusion - 95-99% stenosis. Occluded - 100% stenosis. CT/STROKE CTA Head AND Neck W/Con IMPRESSION: No evidence of arterial stenosis, occlusion, dissection or intracranial aneurysm. N.B. : The above Results were Read Back by Tonio Cui MD to JONG JALLOH MD, and understanding confirmed on 07/22/2022 07:53:11 (ET). Electronically Signed: Tonio Cui MD at 7:57 EST ,
--- NOTE | 2022-07-22 06:25 | EDS_ITS ---
HPI History of Present Illness Chief Complaint: Numb/Ting Informant: patient Narrative Narrative: Patient presents with some numbness tingling and weakness on his left side. He states he was normal when he went to bed Thursday night. When he woke up Thursday he noticed that he had tingling of his left hand. He had trouble making his left leg follow his directions. He had trouble lifting it up and making it moved. This lasted for maybe 5 minutes. He was then able to get up and walk around. He actually went to work yesterday and stood up all day. He did not have the numbness tingling or weakness during the day. He did note last evening that when he was typing on a keyboard his left hand just felt a little funny. He then went to bed and he felt fine. When he woke up this morning he had similar symptoms as yesterday morning. He states he still has a little numbness in his left hand but it is only the very tip of his left hand index and middle finger. It is more on the volar side than the dorsal side. He has never had headache or trauma. He has no history of strokes. He does have a history of high blood pressure, cardiomyopathy, cholesterol and diabetes so he has multiple risk factors. He has not been feeling ill recently other than these above complaints. Of note, I note that the patient's blood pressure is up here. He is not having headache or chest pain. He is not sure if he took his blood pressure medicines this morning or not. We will recheck this. If it remains elevated we will we will treat it consistent with stroke protocol. [facility] Medical History Cardiomyopathy Diabetes High cholesterol Hypertension Home Medications cholecalciferol (vitamin D3) 1,250 mcg (50,000 unit) capsule 1,250 mcg PO QWEEK 10/27/20 [History Last Taken Unknown] bupropion HCl 150 mg tablet,12 hr sustained-release 150 mg PO BID 30 days #60 ea 07/19/21 [Rx Last Taken Unknown] glimepiride 4 mg tablet 4 mg PO DAILY #30 tabs 07/19/21 [Rx Last Taken Unknown] amlodipine 10 mg-benazepril 20 mg capsule 1 cap PO QHS #90 caps 08/14/21 [Rx Last Taken Unknown] aspirin 81 mg tablet,delayed release (Adult Aspirin Regimen) 81 mg PO DAILY #90 tabs 08/14/21 [Rx Last Taken Unknown] metoprolol tartrate 25 mg tablet 25 mg PO BID #180 tabs 08/14/21 [Rx Last Taken Unknown] pravastatin 40 mg tablet 40 mg PO QHS #90 tabs 08/14/21 [Rx Last Taken Unknown] spironolactone 25 mg tablet 25 mg PO DAILY #90 tabs 08/14/21 [Rx Last Taken Unknown] Allergy/AdvReac Type Severity Reaction Status Date / Time No Known Allergies Allergy Verified 07/22/22 06:12 Surgical History H/O hernia repair Social History household members: spouse number of children: 0 current occupational status: employed Smoking Status: Never smoker ROS ROS ED Constitutional Constitutional ED: Denies chills or fever(s) Eyes Eyes: Denies blurry vision, change in vision or diplopia ENT ENT ED: Denies sore throat Cardiovascular Cardiovascular: Denies chest pain or palpitations Respiratory/Chest Respiratory/Chest: Denies cough or dyspnea Gastrointestinal Gastrointestinal: Denies nausea or vomiting Genitourinary Genitourinary ED: Denies hematuria Musculoskeletal Musculoskeletal: Denies back pain or neck pain Integumentary Denies rash Neurologic Neurologic: Reports paresthesias, weakness and other Details: See history of present illness. ; Denies headache(s) Endocrine Endocrinology: Denies polydipsia or polyuria Hematologic/Lymphatic Hematologic/Lymphatic: Reports other Details: He denies being on any antico agulation. ; Denies easy bleeding or easy bruising Allergic/Immunologic Allergic/Immunologic ED: Denies urticaria EXAM Physical Exam Narrative Exam Narrative: Since the bed talking on the phone. He is in no acute distress. He carries on normal conversation. HEENT shows a skin abnormality of the top of his head. He states this is not from any surgery but this has been there his whole life and is unchanged. I had initially thought it may be a surgical wound. Eyes show no pallor or icterus. No visual field cut by confrontation. Neck shows no JVD. He does have a thick neck. This may preclude seeing this. I do not hear a bruit. Heart sounds regular. Rate of about 90. I am not hearing any murmur. Lungs are clear bilaterally. Saturation is normal at 97% on room air showing no hypoxia. Abdomen is obese but benign. Extremities show no notable edema. He does have a splint on his right ankle that is chronic. Neuro: Patient has an NIH of 0 at this time. The only finding I have is a sense of numbness at the tip of his left index and middle finger. He does feel that this is more volar than dorsal. This may be radial nerve involvement but this would not explain the other symptoms he had on the left side of his body. Skin shows no rash. Const Vital Signs: 07/22/22 06:09 07/22/22 06:24 07/22/22 06:54 Temperature 97.8 F 97.8 F Temperature Source Temporal Temporal Pulse Rate 89 89 Respiratory Rate 19 H 17 Blood Pressure 218/113 H 218/113 H Blood Pressure Mean 148 148 Pulse Ox 97 96 97 Oxygen Delivery Method Room Air Room Air Room Air 07/22/22 07:24 07/22/22 07:30 07/22/22 07:51 Temperature Temperature Source Pulse Rate 89 100 92 Respiratory Rate 17 26 H 24 H Blood Pressure 213/128 H 196/179 H 220/124 H Blood Pressure Mean 156 184 156 Pulse Ox 95 95 96 Oxygen Delivery Method Room Air Room Air Room Air 07/22/22 07:45 07/22/22 08:00 Temperature Temperature Source Pulse Rate 81 81 Respiratory Rate 24 H 17 Blood Pressure 220/124 H 193/108 H Blood Pressure Mean 156 136 Pulse Ox 95 96 Oxygen Delivery Method Room Air Room Air MDM MDM MDM Narrative Medical decision making narrative: My independent interpretation the patient's CT of the head without contrast does show a right sided basal ganglial region bleed. I do not see any shift. Final reading is similar. I went and checked the patient after this. He is still really asymptomatic. His blood pressure is up and we have already put in meds for that. I have now changed the parameters from ischemic to hemorrhagic stroke blood pressure management. I discussed this with the nurse. I talked directly with the radiologist about this head CT also. I then discussed the CTA that shows no acute stenosis occlusion or aneurysm with a different radiologist. I then called the [facility] hemorrhagic stroke phone line. I discussed this with her nurse senior project manager engineering. She discussed the case with Dr. Berrios who accepted the patient in transfer to the ED and Dr. Somers was also notified. I did update the patient about the need for this transport and the reasons. Patient CBC shows minimally low hemoglobin. However his platelets and white count are normal. Electrolytes are normal. Coagulation studies are pending at this time. Due to multiple evaluations of the patient, review of images, labs, discussion with multiple providers and arranging transport, critical care time of 42 minutes was needed. Lab Data Attestation: I reviewed the patient's lab results. Labs: Laboratory Results - last 24 hr 07/22/22 07/22/22 07/22/22 06:44 06:44 06:59 WBC 8.9 RBC 5.29 Hgb 12.9 L Hct 41.7 MCV 78.8 L MCH 24.4 L MCHC 30.9 L RDW Std Deviation 42.0 RDW Coeff of Marcela 14.6 Plt Count 333 MPV 9.3 Immature Gran % (Auto) 0.500 Neut % (Auto) 66.7 Lymph % (Auto) 22.3 Whiteside % (Auto) 8.8 Eos % (Auto) 1.2 Baso % (Auto) 0.5 Absolute Neuts (auto) 5.9 Absolute Lymphs (auto) 1.97 Nucleated RBC % 0 Sodium 138 Potassium 3.5 Chloride 104 Carbon Dioxide 26.0 Anion Gap 8 BUN 12 Creatinine 0.74 Estim Creat Clear Calc 106.57 Est GFR (MDRD) Af Amer 144 Est GFR (MDRD) Non-Af 119 BUN/Creatinine Ratio 16.3 Glucose 190 H Calcium 9.1 Troponin I High Sens 24 POC Glucose 190 H Radiography Diagnostic Testing: Clinical Impression(s) from Imaging Studies Brain CT 07/22/22 06:24 IMPRESSION: 1. Small right gangliocapsular hemorrhage. Favor spontaneous hypertensive hemorrhage. 2. Cerebral atrophy and chronic small vessel ischemic changes. Electronically Signed: Alonzo Villegas MD at 7:47 EST , ADDENDUM: 07/22/22 1066 IMPRESSION: 1. Small right gangliocapsular hemorrhage. Favor spontaneous hypertensive hemorrhage. 2. Cerebral atrophy and chronic small vessel ischemic changes. N.B. : The above Results were Read Back by Alonzo Villegas MD to JONG OLIVAREZ MD, and understanding confirmed on 07/22/2022 07:48:16 (ET). Electronically Signed: Alonzo Villegas MD at 7:47 EST , Head/Neck CTA 07/22/22 06:25 IMPRESSION: No evidence of arterial stenosis, occlusion, dissection or intracranial aneurysm. N.B. : The above Results were Read Back by Tonio Cui MD to JONG OLIVAREZ MD, and understanding confirmed on 07/22/2022 07:53:11 (ET). Electronically Signed: Tonio Cui MD at 7:57 EST , Chest X-Ray 07/22/22 07:35 IMPRESSION: No radiographic evidence of consolidative airspace disease or florid edema Electronically Signed: Jacob Peñaloza MD at 7:51 EST , EKG Initial EKG: Comments: My independent interpretation of an EKG done as part of work-up for TIA symptoms show a normal sinus rhythm with right bundle branch block. No ventricular ectopy. Trace elevation just in lead III but not in lead II or aVF. There is some dyspnea diffuse nonspecific changes. I think this is all due to the right bundle branch block. AL interval is normal. QRS duration and QTc are long. The EKG is similar to 1 done 17 July 2021. Critical Care Time Critical care time (excluding procedures): 30-74 minutes, Discussing w/Patient &/or Family/Core Cutter, Discussing w/Consultants, Arranging Admission or Transfer, Performing Direct Patient Care at Bedside and - (42 minutes, see MDM) Discharge Plan Triage Chief Complaint: Numb/Ting ED Provider: Jong Olivarez Dx/Rx/DC Orders Clinical Impression: Stroke, hemorrhagic, Hypertensive emergency Prescriptions: No Action cholecalciferol (vitamin D3) 1,250 mcg (50,000 unit) capsule 1,250 mcg PO QWEEK spironolactone 25 mg tablet 25 mg PO DAILY Qty: 90 3RF amlodipine-benazepril 10-20 mg capsule 1 cap PO QHS Qty: 90 3RF metoprolol tartrate 25 mg tablet 25 mg PO BID Qty: 180 3RF aspirin [Adult Aspirin Regimen] 81 mg tablet,delayed release (DR/EC) 81 mg PO DAILY Qty: 90 3RF pravastatin 40 mg tablet 40 mg PO QHS Qty: 90 3RF bupropion HCl 150 mg tablet sustained-release 12 hr 150 mg PO BID 30 Days Qty: 60 0RF glimepiride 4 mg tablet 4 mg PO DAILY Qty: 30 0RF Primary Care Provider: Kyaw Schmidt Referrals: Kyaw Schmidt MD [Primary Care Provider] - Disposition Disposition: Acute Care Hospital
[2022-07-22 06:52] LABS: Absolute Lymphocyte Count 1.97 X10^3/uL (0.83-4.51); Absolute Neutrophil Count 5.9 X10^3/uL (2.0-7.7); Basophil# 0.04 X10^3/uL; Basophil% 0.5 % (0-1); Eosinophil# 0.11 X10^3/uL; Eosinophils% 1.2 % (0-5); Hematocrit 41.7 % (40-54); Hemoglobin 12.9 g/dL (13.0-16.5); Lymphocyte # 1.97 X10^3/ul (0.83-4.51); Lymphocyte % 22.3 % (19-41); Mean Corp Hgb Conc 30.9 g/dL (32-36); Mean Corpuscular Hgb 24.4 pg (27.0-32.0); Mean Corpuscular Volume 78.8 fL (80-94); Mean Platelet Vol. 9.3 fl (6.2-12.0); Monocyte# 0.78 X10^3/uL; Monocyte% 8.8 % (0-10); NRBC Flagged by Analyzer 0 % (0-5); Neutrophil # 5.91 X10^3/uL (2.7-7.7); Neutrophil % 66.7 % (47-70); Platelet Count 333 K/mm3 (150-450); RBC Distribution Width CV 14.6 % (11.6-14.6); Red Blood Count 5.29 M/mm3 (4.6-6.2); White Blood Count 8.9 K/mm3 (4.4-11.0)
[2022-07-22 07:16] LABS: Anion Gap 8 (5-15); BUN 12 mg/dL (7-18); BUN/Creat Ratio 16.3 RATIO (10-20); Calcium,Total 9.1 mg/dL (8.5-10.1); Chloride 104 mmol/L (98-107); Creatinine, Serum 0.74 mg/dL (0.70-1.30); EST Glomerular Filtration Rate 119 mL/min (>60); Est Glom Filt Rate - Afr Amer 144 mL/min (>60); Estimated Creatinine Clearance 106.57 ml/min; Glucose 190 mg/dL (74-106); Potassium 3.5 mmol/L (3.5-5.1); Sodium Level 138 mmol/L (136-145); Troponin-I HS 24 pg/mL (3.0-78.0)
[2022-07-22 07:21] LABS: Bedside Glucose 190 mg/dL (74-106)
--- NOTE | 2022-07-22 07:35 | RAD_ITS ---
INDICATION: Neuro deficit, acute, stroke suspected EXAMINATION/TECHNIQUE: X-RAY - XR Chest 1 View COMPARISON: 07/17/2021. FINDINGS: LINES/DEVICES: None. LUNGS: No consolidation, florid edema, or effusion. No pneumothorax. MEDIASTINUM AND CARDIOVASCULAR STRUCTURES: Prominent cardiac silhouette accentuated by AP projection and position. BONES AND SOFT TISSUES: Unremarkable. RAD/Chest 1 View IMPRESSION: No radiographic evidence of consolidative airspace disease or florid edema Electronically Signed: Jacob Peñaloza MD at 7:51 EST ,
[2022-07-22] MEDS: Labetalol (Prefilled) 20 MG/4 ML IV ×2 (07:56→08:08)
[2022-07-22] MEDS: Nicardipine HCl-0.9% Sod Chlor 20 MG/200 ML IV.SOLN 50 MG CONT INF (08:25)
--- NOTE | 2022-07-22 08:48 | ED.RN ---
during the time this rn has been in the room monitoring and administering medications, pt has been texting and talking on the phone. when asked by this rn how he is feeling, feel ok.
[2022-07-22 08:54] LABS: Prothrombin Time (Protime)PT. 13.3 SECONDS (11.7-14.9)
--- NOTE | 2022-07-22 08:56 | ED.RN ---
ems at bedside
== END 2022-07-22 09:11 | disposition short-term general hospital (02) ==
PROVIDERS: Emergency Provider Emergency Medicine; PCP Family Medicine; Visit Provider Emergency Medicine
DX: I61.8 Other nontraumatic intracerebral hemorrhage (principal); E11.9 Type 2 diabetes mellitus without complications; I10 Essential (primary) hypertension; I16.1 Hypertensive emergency; E78.00 Pure hypercholesterolemia, unspecified
CPT/HCPCS: 70450; 70496; 70498; 71045; 80048; 82962; 84484; 85025; 85610; 85730; 93005; 96365; 96375; 99285; Q9967; A4216

== ENCOUNTER → 2023-03-02 | Outpatient (CLI) | payer BC, SELFPAY ==
--- NOTE | 2023-03-02 15:22 | RAD_ITS ---
INDICATION: cough -- STAT EXAMINATION/TECHNIQUE: X-RAY - XR Chest 2 Views COMPARISON: Prior study dated: 07/22/2022 FINDINGS: LINES/DEVICES: None. LUNGS: The lungs are well expanded. Increased hazy opacity at the right base with mild bronchial wall thickening noted. No pleural effusion or pneumothorax. MEDIASTINUM AND CARDIOVASCULAR STRUCTURES: Cardiac silhouette not enlarged. Central airways and mediastinal contour are unremarkable. BONES AND SOFT TISSUES: Unremarkable. RAD/Chest PA and Lateral IMPRESSION: Bronchial wall thickening can be seen with a small airways process such as asthma or atypical/viral infection. The hazy right basilar opacity could be superimposed atelectasis or developing pneumonia. Electronically Signed: Byron Sen MD at 15:34 EDT ,
== END | disposition home or self-care (01) ==
PROVIDERS: PCP Family Medicine; Referring Provider Physician Assistant; Visit Provider Physician Assistant
DX: R05.9 Cough, unspecified (principal)
CPT/HCPCS: 71046

== ENCOUNTER → 2023-03-06 | Outpatient (CLI) | payer BC, SELFPAY ==
[2023-03-06 17:27] LABS: Absolute Lymphocyte Count 2.26 X10^3/uL (0.83-4.51); Absolute Neutrophil Count 4.2 X10^3/uL (2.0-7.7); Basophil# 0.05 X10^3/uL; Basophil% 0.7 % (0-1); Eosinophil# 0.14 X10^3/uL; Eosinophils% 1.9 % (0-5); Hematocrit 40.6 % (40-54); Hemoglobin 12.3 g/dL (13.0-16.5); Lymphocyte # 2.26 X10^3/ul (0.83-4.51); Lymphocyte % 30.1 % (19-41); Mean Corp Hgb Conc 30.3 g/dL (32-36); Mean Corpuscular Volume 79.1 fL (80-94); Mean Platelet Vol. 9.6 fl (6.2-12.0); Monocyte# 0.86 X10^3/uL; Monocyte% 11.5 % (0-10); NRBC Flagged by Analyzer 0 % (0-5); Neutrophil # 4.17 X10^3/uL (2.7-7.7); Neutrophil % 55.4 % (47-70); Platelet Count 362 K/mm3 (150-450); RBC Distribution Width CV 14.6 % (11.6-14.6); RBC Distribution Width SD 41.8 fl (35.1-43.9); Red Blood Count 5.13 M/mm3 (4.6-6.2); White Blood Count 7.5 K/mm3 (4.4-11.0)
[2023-03-06 18:14] LABS: ALB/GLOB Ratio 0.9 RATIO (0.9-2.4); AST(SGOT) 11 U/L (15-37); Alanine Aminotransfer ALT/SGPT 23 U/L (16-61); Albumin, Serum 3.5 g/dL (3.2-5.0); Alkaline Phosphatase 80 U/L (45-117); Anion Gap 7 (5-15); BUN 13 mg/dL (7-18); BUN/Creat Ratio 18.7 RATIO (10-20); Calcium,Total 8.8 mg/dL (8.5-10.1); Chloride 105 mmol/L (98-107); Cholesterol 104 mg/dL (200); EST Glomerular Filtration Rate 126 mL/min (>60); Est Glom Filt Rate - Afr Amer 153 mL/min (>60); Globulin 3.9 g/dL (2.2-4.2); Glucose 86 mg/dL (74-106); Hemoglobin A1c 7.1 % (3.8-5.6); High Density Lipoprotein 36 mg/dL; Potassium 3.5 mmol/L (3.5-5.1); Protein, Total 7.4 g/dL (6.4-8.2); Sodium Level 138 mmol/L (136-145); Triglycerides 91 mg/dL; Very Low Density Lipoprotein 18 mg/dL (5-40)
[2023-03-06 18:17] LABS: Microalbumin:Creatinine Ratio 504.6 mg/g CRE (<30 mg/g CRE)
== END | disposition home or self-care (01) ==
LOC: MFPLAB 14:43
PROVIDERS: PCP Family Medicine; Visit Provider Family Medicine
DX: E11.8 Type 2 diabetes mellitus with unspecified complications (principal); J18.9 Pneumonia, unspecified organism
CPT/HCPCS: 36415; 80053; 80061; 82043; 82570; 83036; 85025

== ENCOUNTER → 2023-10-30 | Outpatient (CLI) | payer BC, SELFPAY ==
[2023-10-30 17:32] LABS: Absolute Lymphocyte Count 2.49 X10^3/uL (0.83-4.51); Basophil# 0.07 X10^3/uL; Basophil% 0.7 % (0-1); Eosinophil# 0.09 X10^3/uL; Hematocrit 40.4 % (40-54); Hemoglobin 12.7 g/dL (13.0-16.5); Lymphocyte # 2.49 X10^3/ul (0.83-4.51); Lymphocyte % 26.3 % (19-41); Mean Corp Hgb Conc 31.4 g/dL (32-36); Mean Corpuscular Hgb 24.1 pg (27.0-32.0); Mean Corpuscular Volume 76.5 fL (80-94); Mean Platelet Vol. 9.6 fl (6.2-12.0); Monocyte# 0.74 X10^3/uL; Monocyte% 7.8 % (0-10); NRBC Flagged by Analyzer 0 % (0-5); Neutrophil # 6.04 X10^3/uL (2.7-7.7); Neutrophil % 63.9 % (47-70); Platelet Count 362 K/mm3 (150-450); RBC Distribution Width CV 14.1 % (11.6-14.6); RBC Distribution Width SD 38.5 fl (35.1-43.9); Red Blood Count 5.28 M/mm3 (4.6-6.2); White Blood Count 9.5 K/mm3 (4.4-11.0)
[2023-10-30 17:52] LABS: Hemoglobin A1c 6.8 % (3.8-5.6)
[2023-10-30 18:05] LABS: AST(SGOT) 17 U/L (15-37); Alanine Aminotransfer ALT/SGPT 42 U/L (16-61); Alkaline Phosphatase 78 U/L (45-117); Anion Gap 9 (5-15); BUN 15 mg/dL (7-18); BUN/Creat Ratio 23.5 RATIO (10-20); Calcium,Total 9.4 mg/dL (8.5-10.1); Chloride 102 mmol/L (98-107); Creatinine, Serum 0.64 mg/dL (0.70-1.30); EST Glomerular Filtration Rate 139 mL/min (>60); Est Glom Filt Rate - Afr Amer 169 mL/min (>60); Glucose 91 mg/dL (74-106); PSA,Total - Annual Screen 0.29 ng/mL (0.00-4.00); Potassium 3.6 mmol/L (3.5-5.1); Sodium Level 134 mmol/L (136-145)
== END | disposition home or self-care (01) ==
LOC: MFPLAB 16:22
PROVIDERS: PCP Family Medicine; Visit Provider Family Medicine
DX: Z12.5 Encounter for screening for malignant neoplasm of prostate (principal); E11.8 Type 2 diabetes mellitus with unspecified complications
CPT/HCPCS: 36415; 80053; 83036; 84153; 85025; G0103

== ENCOUNTER → 2024-06-14 | Outpatient (CLI) | payer BC, SELFPAY ==
--- NOTE | 2024-06-14 14:02 | CR.HP_ITS ---
CR - History & Physical General Arrival date:: 06/14/24 Arrival time:: 14:03 Date of Referral:: 05/04/24 Date of CR Evaluation:: 06/14/24 Referring Physician: Dr. Jacky Winston Primary Diagnosis: S/P CABG History of Present Cardiac Event Onset Date Coronary Artery Bypass Graft:: Yes Vessel: NICE-LAD, [id number] Medications Ambulatory Orders ?Medication ?Instructions ?Recorded cholecalciferol (vitamin D3) 1,250 1,250 mcg PO QWEEK 10/27/20 mcg (50,000 unit) capsule bupropion HCl 150 mg tablet,12 hr 150 mg PO BID 30 days #60 ea 07/19/21 sustained-release glimepiride 4 mg tablet 4 mg PO DAILY #30 tabs 07/19/21 amlodipine 10 mg-benazepril 20 mg 1 cap PO QHS #90 caps 08/14/21 capsule aspirin 81 mg tablet,delayed 81 mg PO DAILY #90 tabs 08/14/21 release (Adult Aspirin Regimen) metoprolol tartrate 25 mg tablet 25 mg PO BID #180 tabs 08/14/21 pravastatin 40 mg tablet 40 mg PO QHS #90 tabs 08/14/21 spironolactone 25 mg tablet 25 mg PO DAILY #90 tabs 08/14/21 benzonatate 100 mg capsule 200 mg (2 x 100 mg) PO TID PRN 01/08/23 cough #30 caps levofloxacin 750 mg tablet 750 mg PO DAILY #7 tabs 03/02/23 Allergies Allergies No Known Allergies Allergy (Verified 03/02/23 15:03) Sleep Disorder Evaluation Hx of Sleep Apnea: Yes Do you snore loudly (louder than talking or can be heard through closed doors)?: No Do you often feel tired/ fatigued/ sleepy during daytime?: No Has anyone observed you stop breathing during sleep?: No History of Hypertension (for STOP score): No STOP Results: Negative Advanced Directives Advanced Directives Power of Documentation Supervisor: No Living Will: No Advance Directives Information Provided: No Advance Directives on File: No DNR Order?:: No Past Medical History Covid-19 Screening Physicial Symptoms Other Clinical Concerns Exposure Risk Pertinent Comorbidities Has a serious heart condition:: Yes Diabetic:: Yes Past Medical Illness Past Medical History (Updated 03/02/23 @ 16:16 by Robert SIMMS, PA) Cough R05.9 Cardiomyopathy I42.9 EF 45% Diabetes E11.9 High cholesterol E78.00 Hypertension I10 Past Surgical History Past Surgical History H/O hernia repair Z98.890, Z87.19 Social History Smoking History Smoking Status: Never smoker Alcohol Use Alcohol Usage: No Substance Abuse Hx Substance Use: No Occupation Occupation (List type of work in comments):: Employed Hours worked per day:: 8 Social Environment Status Marital Status: Current Living Arrangements Living Environment:: Spouse Safety Do you feel safe in your surroundings?: Yes Assistance Do you need any assistance at home?: no Review of Systems Review of Systems Hints Review of Present Symptoms: Reports Operative Discomfort, Heart Arrhythmia/Irregularities, Appetite - Normal, Appetite - Special Diet and Sleep - Normal; Denies Shortness of Breath at Rest, Shortness of Breath with Exertion, PVD, Angina, Wound Healing, Dizziness/Lightheadedness, Fatigue or Sexual Changes Pain Is Patient Pain Free?: Yes Risk Factor Assessment Chief Complaint Chief Complaint: S/P CABG Vital Signs Pulse Ox: 98 Blood Pressure: 122/58 Pulse Pulse Rate: 83 Pulse Rhythm: Irregular Hypertension How long have you been treated?: about 10 years ago Blood Pressure Sitting - Right Arm: 122/58 Stress Stress: Long-standing Diabetes Diabetic History: Type II Nutrition Referral for Diabetes: Yes Obesity Height: 5 ft 6 in Weight:: 210 lb Weight in Pounds: 210.0 lbs Body Mass Index (BMI): 33.9 Physical Inactivity Physical Inactivity: None Risk Stratification Risk Guidelines: Moderate Risk: Risk Factor for Smoking, Risk Factor for Dyslipidemia, Risk Factor for Diabetes, Risk Factor for Obesity, Risk Factor for Sedentary Lifestyle and Risk Factor for Depression and Highest Risk: Risk Factor for Hypertension For Smoking Smoking Risk Guidelines For Dyslipidemia Dyslipidemia Risk Guidelines For Diabetes Mellitus Diabetes Risk Guidelines For Obesity/Overweight Obesity/Overweight Risk Guidelines For Hypertension Hypertension Risk Guidelines For Sedentary Lifestyle Sedentary Lifestyle Risk Guidelines For Depression Depression Risk Guidelines Motivation Motivation to Participate On a scale of 1 to 10, how prepared are you to commit to attending program?: 7 What do you see as barriers to successfully being able to complete the program?: nothing What do you see as the benefits of succesfully completing the program? In other words, what do you hope to get out of participating in the program?: understand diet, learn how to exercise, reduce medications Are there issues you are dealing with that will interfere with completing the program?: no Do you have a spouse or signficant other, family or friends who will help support you to complete the program?: yes
--- NOTE | 2024-06-14 14:09 | CR.ITP_ITS ---
Diagnosis General Information Admitting Diagnosis: S/P CABG Personal Learning Style:: Audio/Visual Barriers to Learning: No Barriers Stage of change r/t lifestyle modifications:: Contemplation Gave educational material for:: Treating Heart Disease, How The Heart Works, What it means to have Heart Disease, How Coronary Artery Disease is Diagnosed, Heart Procedures, What Heart Medications Do, Risk Factors & Modifications, Kely ng an Active Life, Nutrition, Emotions & Heart Disease, Stress Management & Relaxation and Sleep Disorders & Heart Disease Education/Goals Cardiac Rehabilitation Goals Personal Goals: Initial Assessment: Improve management of stress and emotions, Improve energy level, Get back to work, or to resume activities faster, Improve muscle strength and endurance, Improve diet and eating habits (eat healthier) and Control risk factors (learn risk factor modification) Scale for measuring improvement of personal goals Diagnosis & Disease Process Outcomes/Goals: Pt IDs own risk factors & lifestyle modifications by Session 10, Verbalizes symptoms of angina & response by session 3. and Pt independently manages Plan/Interventions: Assist Pt to ID & engage in lifestyle modification to reduce CVD risk, Instruct on individual risk factors, Review symptoms of angina & emergency actions and Review secondary diagnosis & identify educational needs. 30 day Reassessments:: Not Met 30 day Reassessments:: Not Met 30 day Reassessments:: Not Met 30 day Reassessments:: Not Met Final Reassessments:: Not Met Exercise - Initial Assessment Visit Date of Eval: 06/14/24 (initial eval ) Mets: Pre-: >3 METS for 30 minutes by discharge, >5 METS for 30 minutes by discharge and >7 METS for 30 minutes by discharge Physician Prescribed Exercise Modalities: Treadmill, Paxerinn [place] AD-7, SciFit Stepper, C[employer]na Pro-II Ergometer and [email or web address] Lateral [employer]ing Advisory Services Manager Frequency: 3x/week for 12 weeks [36 sessions] Intensity: 60-80% of age predicted maximum heart rate reserve Duration: 30 - 45 minutes Current METSs:: 3 Target Heart Rate:: 100-125 Resting Blood Pressure: 122/58 EKG Type: NSR BBB Outcomes & Goals Goals:: Verbalizes understanding of THR, RPE & goal METS by session 6, Documents in home exercise log/reports 30 min aerobic 5 day/wk by DC, Demonstrates accurate pulse taking by DC and Other additional outcome/goals: see below Intervention & Plan Exercise Program Goals: Instruct on personal THR & RPE, Instruct on MET level & personal MET goal, Show patient to take own pulse /validate performance until accurate, Instruct on home exercise and Other additional plan/int Physical Activity Home Exercise Physical Activity - Home Exercise: Safe Exercise, Warm-up, Self-monitoring, Cool-Down, Home Exercise > 30 min Daily and Sitting Time <3 hours/daily Outcomes & Goals Outcomes/Goals: Demonstrates correct Warm-up/exercise Cool-Down (S3) if = 2.5 METs, Verbalizes symptoms of exercise intolerance by Session 3 (S3), Demonstrate safe equipment use (S3) & follows exercise prescrition (6) and Other: See below Intervention & Plan Plan/Intervention: Instruct warm-up & cool-down if exercising at > 2 METs, Instruct on symptoms of exercise intolerance & actions to take, Instruct & monitor on saf, Assess intial functional capacity & safety risk and Other See below Nutrition - Initial Assessment Program Goals Nutrition Program Goals Patient has diagnosis of Hyperlipidemia (ICD E78)?: No Visit Date of Eval: 06/14/24 (initial eval ) Cholesterol/Lipids (Other Core Measures) Determine presence & major risk factors that modify LDL goal: Cigarette smoking, Hypertension or hypertensive medication, Low HDL cholesterol <40 mg/dL*, Family history of premature CHD in Male < 55 years: female <65 yearsFa and Age men > 45 years; women >/= 55 years Outcomes/Goals: Pt IDs own risk factors & lifestyle modifications by Session 10, Verbalizes symptoms of angina & response by session 3. and Pt independently manages Intervention/Plan: Advocate for lipid panel cholesterol medication if applicable, Instruct on personal lipid levels & lipid goals/NCEP guidelines, Instruct on cholesterol and Other additional plan/int Diabetes (Other Core Measures) Diabetes Type: Not Applicable Weight Mgt (Other Care) Height: 5 ft 6 in Weight:: 210 lb BMI: 33.9 Diagnosis Overweight/Obesity BMI> 30% ICD-10 E66: Yes Diagnosis High BMI/Morbid Obesity BMI> 35% ICD-10 Z68: No Outcomes/Goals: Pt sets, maintains & shows weight loss goal & trend during rehab Intervention/Plan: Instruct on ideal BMI & set weight loss goal w/patient, Assist pt to ID & incorporate diet changes for weight loss by S9, Refer to Structured Weight Loss program as appropriate and Encourage goal of using 250- 300dcal per session for weight loss Healthy Eating Habits Will attend diet classes:: Yes Outcomes/Goals:: Consume diet rich in vegs,fruits,whole grain/high fiber,fish,lean meat, Limit sat/trans fats,cholesterol & added salts & sugars and Other additional outcome/goals: Intervention/Plan:: Assess current eating habits and Other Additional plan/interventions Education Gave educational materials for:: Signs & symptoms of hypoglycemia, Signs & symptoms of hyperglycemia, Relate diabetes to coronary artery disease and Healthy eating Core - Initial Assessment Visit Date of Eval: 06/14/24 (initial eval ) Medication Compliance Preventative Medication(s):: Aspirin, SKYLER inhibitor, Statin/lipid and Beta cecily H/O mental health issues: depression, anxiety, or addiction?: No Doesn?t believe in the benefits of treatment?: No Believes medications are unnecessary or harmful?: No Has a concern about medication side effects?: No Expresses concern over the cost of medications?: No Outcomes/Goals: Verbalizes medications,desired effect & common side effects @ DC, Pt self-reports following medication regimen, Keeps card in wallet w/medications listed by DC and Other additional outcome/goals: Interventions/plans: Instruct on medication effects & side effects, Review medication list w/patient every two weeks, Instruct importance of taking meds as ordered & assist problem solving and Other additional Tobacco Use Tobacco Use: Non-smoker Hypertension Hypertension Diagnosis:: Hypertension ICD-10 I10 Resting Blood Pressure:: 122/58 [place] [employer] Hypertension Guidelines Outcomes/Goals: Able to verbalize/achieve optimal blood pressure <130/80, Incorporates diet changes & exercise for blood pressure control by DC and Other additional outcomes/goals Interventions/plan: Instruct on optimal blood pressure, hypertension & medications, Instruct on effects of sodium, alcohol, stress, exercise &hypertension and Other additional plan/interventions Tobacco Cessation Referral Smoking Cessation Referral:: No Individual Education/Counseling:: No Psychosocial - Initial Assess VIsit Date of Eval: 06/14/24 History of previous Mental disease:: Yes History of Emotional Disorders: Anxious Self-reported stressors: Medical/Health Target Goals Target Goals Psychosocial Test Tool Used:: [employer] QOL Cardiac and PHQ-9 Questionnaire phq-9 Severity Referral to Behavioral Health PS - Interventions: Yes: Attend Stress Management Classes Outcomes/Goals: See list Psychosocial Outcomes/Goals:: ID's personal stressors & 2 strategies to manage stress by discharge and Other Additional outcome/goals: Intervention/Plan: See List Interventions/Plan:: Assess stressors,coping strategies & signs of derpression on admission, Instruct/assist pt to develop coping & personal stress Mgt strategies, Refer to Behavioral Health if appropriate, Refer to Physician if appropriate, Instruct patient to recognize signs & symptoms of depression, Instruct patient to recog and Other additional plan/intervention Patient Health Questionnaire PHQ-9 Screening Initial Assessment: 1. Little interest or pleasure in doing things: Several days 2. Feeling down, depressed, or hopeless: Not at all 3. Trouble falling or staying asleep, or sleeping too much: Several days 4. Feeling tired or having little energy: Several days 5. Poor appetite or overeating: Not at all 6. Feeling bad about yourself -- or that you are a failure or have let yourself or your family down: Several days 7. Trouble concentrating on things, such as reading the newspaper or watching television: Not at all 8. Moving or speaking so slowly that other people could have noticed. Or the opposite - being so fidgety or restless that you have been moving around a lot more than usual: Not at all 9. Thoughts that you would be better off , or of hurting yourself in some way: Not at all How difficult have these problems made it for you to do your work, take care of things at home, or get along with other people?: Not difficult at all Total Score: 4 LIANNE-Q SV Test Statements CAD is a disease of the arteries in the heart: False Examples of risk factors for heart disease: True Angina is chest pain or discomfort: True The benefits of resistance training include: True Eating more meat and dairy products: False Anti-platelet medications such as aspirin are important: True The only effective way to manage stress: False An exercise warm-up slowly increases heart rate: True Prepared, processed foods usually have high sodium: True Depression is common after a heart attack: True The statin medications lower cholesterol: False To control blood pressure, lower the amount of sodium: True If someone gets chest discomfort during walking: False Transfats are partially hydrogenated vegetable oils: True Sleep apnea that is not treated increases the risk: True To control cholesterol, one should become a vegetarian: False Someone knows if he/she is exercising at the right level: True Diabetes cannot be prevented with exercise & health eating: False Stress is a large risk for heart attack: True A diet that can help lower blood pressure is rich in: True Total Score Total Correct Responses: 18 Self-Efficacy 6-Item Scale Initial Assessment: We would like to know how confident you are in doing certain activities. Please select your confidence level for: Fatigue Select Number: 6 Physical Discomfort or Pain Select Number: 7 Emotional Distress Select Number: 5 Other Symptoms or Health Problems Select Number: 5 Different Tasks and Activities Select Number: 6 Medication Select Number: 6 Total Score:: 5 Nutrition Survey Nutrition Survey Instructions Scoring Instructions Nutrition Survey Initial: Have you lost >10 lbs over the past 2 months without trying?: No Are you following a special diet at home for diabetes, low fat, or low salt?: No Are you interested in meeting with a dietitian for help understanding your diet?: Yes Do you eat less than 3 meals a day?: Yes Do you eat fatty meats (marie, sausage, ribs, etc), fried foods, desserts, large amounts of salad dressings, margarine, butter, or cheese most days?: No Do you have food allergies? [Enter types in comment field]: No Do you eat in restaurants more than 3 times a week?: No Do you season food with salt, seasoning salt, or garlic salt?: No Do you used canned, boxed, frozen meals, or soups, seasoning packets?: Yes Total Score:: 3 Exercise - 30-day Assessment Physician Prescribed Exercise Modalities: Treadmill, Schwinn Airdyne AD-7, SciFit Stepper, SciFit Pro-II Ergometer and SciFit Lateral [place] Exercise - 60-day Assessment Physician Prescribed Exercise Modalities: Treadmill, Schwinn Airdyne AD-7, SciFit Stepper, SciFit Pro-II Ergometer and SciFit Lateral Accounting Advisory Services Manager Exercise - 90-day Assessment Physician Prescribed Exercise Modalities: Treadmill, Schwinn Airdyne AD-7, SciFit Stepper, SciFit Pro-II Ergometer and SciFit Lateral [place] Exercise - Final/Discharge Physician Prescribed Exercise Modalities: Treadmill, Schwinn Airdyne AD-7, SciFit Stepper, SciFit Pro-II Ergometer and SciFit Lateral Accounting Advisory Services Manager Frequency: 3x/week for 12 weeks [36 sessions] Intensity: 60-80% of age predicted maximum heart rate reserve Current METSs:: 3 Target Heart Rate:: 100-125 Nutrition - 30-Day Assessment Weight Mgt (Other Care) Height: 5 ft 6 in Weight:: 210 lb BMI: 33.9 Nutrition - 60-Day Assessment Weight Mgt (Other Care) Height: 5 ft 6 in Weight:: 210 lb BMI: 33.9 Core - Final Assessment Hypertension Resting Blood Pressure:: 122/58 [place] [employer] Hypertension Guidelines Core - 60-Day Assessment Hypertension Resting Blood Pressure:: 122/58 [place] [employer] Hypertension Guidelines Psychosocial - 30-Day Assess Target Goals Target Goals Referral to Behavioral Health PS - Interventions: Yes: Attend Stress Management Classes Psychosocial - 60-Day Assess Target Goals Target Goals Referral to Behavioral Health PS - Interventions: Yes: Attend Stress Management Classes Psychosocial - 90-Day Assess Target Goals Target Goals Referral to Behavioral Health PS - Interventions: Yes: Attend Stress Management Classes Psychosocial - Final Assessmen Target Goals Target Goals Referral to Behavioral Health PS - Interventions: Yes: Attend Stress Management Classes Nutrition - 90-Day Assessment Weight Mgt (Other Care) Height: 5 ft 6 in Weight:: 210 lb BMI: 33.9 Nutrition - Final Assessment Program Goals Patient has diagnosis of Hyperlipidemia (ICD E78)?: No Weight Mgt (Other Care) Height: 5 ft 6 in Weight:: 210 lb BMI: 33.9
[2024-06-14 14:34] VITALS: BP 122/58; PULSE 83; O2SAT 98; BMI 33.9
[2024-06-14 15:05] VITALS: BP 122/58; BMI 33.9
== END | disposition home or self-care (01) ==
PROVIDERS: PCP Family Medicine; Referring Provider Thoracic Surgery (Cardiothoracic Vascular Surgery); Visit Provider Thoracic Surgery (Cardiothoracic Vascular Surgery)
DX: Z95.1 Presence of aortocoronary bypass graft (principal)

== ENCOUNTER 2024-06-20 15:23 | Outpatient (RCR) | payer BC, SELFPAY ==
[2024-06-14 15:05] VITALS: BMI 33.9
== END 2024-06-24 23:59 ==
LOC: CR 15:23
PROVIDERS: PCP Family Medicine; Referring Provider Thoracic Surgery (Cardiothoracic Vascular Surgery); Visit Provider Thoracic Surgery (Cardiothoracic Vascular Surgery)
DX: Z95.1 Presence of aortocoronary bypass graft (principal)

== ENCOUNTER → 2024-06-22 | Outpatient (CLI) | payer BC, SELFPAY ==
[2024-06-14 15:05] VITALS: BMI 33.9
--- NOTE | 2024-06-22 10:50 | RAD_ITS ---
PROCEDURE: CHEST PA AND LATERAL REASON FOR EXAM: Cough. TECHNIQUE: Three-view PA and lateral chest. COMPARISON: Chest study of 02/28/2023. RAD/Chest PA and Lateral IMPRESSION: Interval sternotomy noted. Interval placement atrial septal device. Stable appearance of the lungs is seen, without acute pneumonic process noted. No pleural effusion or pneumothorax is evident. The cardiomediastinal silhouette appears within the normal range for age. No e vidence of cardiomegaly. [id number] degenerative changes of the visualized spine are seen. Reading Location: [id number]
== END | disposition home or self-care (01) ==
LOC: MTRAD 10:47
PROVIDERS: PCP Family Medicine
DX: R05.9 Cough, unspecified (principal)
CPT/HCPCS: 71046

== ENCOUNTER → 2024-06-24 | Outpatient (CLI) | payer BC, SELFPAY ==
[2024-06-14 15:05] VITALS: BMI 33.9
[2024-06-24 11:04] LABS: Anion Gap 4 (5-15); BUN 12 mg/dL (7-18); BUN/Creat Ratio 14.7 RATIO (10-20); Calcium,Total 9.3 mg/dL (8.5-10.1); Chloride 103 mmol/L (98-107); Creatinine, Serum 0.82 mg/dL (0.70-1.30); EST Glomerular Filtration Rate 105 mL/min (>60); Est Glom Filt Rate - Afr Amer 127 mL/min (>60); Glucose 143 mg/dL (74-106); Potassium 4.2 mmol/L (3.5-5.1); Sodium Level 135 mmol/L (136-145)
== END | disposition home or self-care (01) ==
LOC: MTLAB 08:30
PROVIDERS: PCP Family Medicine; Referring Provider Nurse Practitioner Adult Health; Visit Provider Nurse Practitioner Adult Health
DX: E11.65 Type 2 diabetes mellitus with hyperglycemia (principal)
CPT/HCPCS: 36415; 80048

== ENCOUNTER 2024-07-22 15:15 | Outpatient (RCR) | payer BC, SELFPAY ==
[2024-06-14 15:05] VITALS: BMI 33.9
--- NOTE | 2024-07-14 08:40 | PCM.CR.ITP ---
Exercise - Initial Assessment Visit Session #:: 7 Physician Prescribed Exercise Modalities: Treadmill, Schwinn Airdyne AD-7 and SciFit Stepper Nutrition - Initial Assessment Weight Mgt (Other Care) Height: 5 ft 6 in Weight:: 215 lb BMI: 34.7 Psychosocial - Initial Assess Target Goals Target Goals Referral to Behavioral Health PS - Interventions: Yes: Attend Stress Management Classes Patient Health Questionnaire PHQ-9 Screening 30-Day Re-eval Assessment: 1. Little interest or pleasure in doing things: Several days 2. Feeling down, depressed, or hopeless: Not at all 3. Trouble falling or staying asleep, or sleeping too much: Several days 4. Feeling tired or having little energy: Several days 5. Poor appetite or overeating: Not at all 6. Feeling bad about yourself -- or that you are a failure or have let yourself or your family down: Several days 7. Trouble concentrating on things, such as reading the newspaper or watching television: Not at all 8. Moving or speaking so slowly that other people could have noticed. Or the opposite - being so fidgety or restless that you have been moving around a lot more than usual: Not at all 9. Thoughts that you would be better off , or of hurting yourself in some way: Not at all How difficult have these problems made it for you to do your work, take care of things at home, or get along with other people?: Not difficult at all Total Score: 4 Self-Efficacy 6-Item Scale 30-Day Re-eval Assessment: We would like to know how confident you are in doing certain activities. Please select your confidence level for: Fatigue Select Number: 6 Physical Discomfort or Pain Select Number: 7 Emotional Distress Select Number: 5 Other Symptoms or Health Problems Select Number: 5 Different Tasks and Activities Select Number: 6 Medication Select Number: 6 Total Score:: 5 Nutrition Survey Nutrition Survey Instructions Scoring Instructions Exercise - 30-day Assessment Visit Date of Eval: 07/14/24 Session #:: 7 Physician Prescribed Exercise Modalities: Treadmill, Schwinn Airdyne AD-7 and SciFit Stepper Frequency: 3x/week for 12 weeks [36 sessions] Intensity: 60-80% of age predicted maximum heart rate reserve Duration: 30 - 45 minutes Current METSs:: 3.1 Target Heart Rate:: 100-125 Current RPE:: 11.5-12 Maximum Excercise HR:: 137 Resting Blood Pressure: 138/70 Maximum Exercise Blood Pressure: 178/88 EKG Type: ST with BBB with occas to frequent PVC's, trigeminy, bigeminy, quadrigeminy Outcomes & Goals Goals:: Verbalizes understanding of THR, RPE & goal METS by session 6, Documents in home exercise log/reports 30 min aerobic 5 day/wk by DC, Demonstrates accurate pulse taking by DC and Other additional outcome/goals: see below Intervention & Plan Exercise Program Goals: Instruct on personal THR & RPE, Instruct on MET level & personal MET goal, Show patient to take own pulse /validate performance until accurate, Instruct on home exercise and Other additional plan/int Physical Activity Home Exercise Physical Activity - Home Exercise: Safe Exercise, Warm-up, Self-monitoring, Cool-Down, Home Exercise > 30 min Daily and Sitting Time <3 hours/daily Outcomes & Goals Outcomes/Goals: Demonstrates correct Warm-up/exercise Cool-Down (S3) if = 2.5 METs, Verbalizes symptoms of exercise intolerance by Session 3 (S3), Demonstrate safe equipment use (S3) & follows exercise prescrition (6) and Other: See below Intervention & Plan Plan/Intervention: Instruct warm-up & cool-down if exercising at > 2 METs, Instruct on symptoms of exercise intolerance & actions to take, Instruct & monitor on saf, Assess intial functional capacity & safety risk and Other See below 30-day Reassessments 30 day Reassessments:: Progressing Reassessment Notes & Comments:: RPE explained to pt. Pt demonstrates understanding. Exercise - 60-day Assessment Physician Prescribed Exercise Modalities: Treadmill, Schwinn Airdyne AD-7 and SciFit Stepper Exercise - 90-day Assessment Physician Prescribed Exercise Modalities: Treadmill, Schwinn Airdyne AD-7 and SciFit Stepper Exercise - Final/Discharge Physician Prescribed Exercise Modalities: Treadmill, Schwinn Airdyne AD-7 and SciFit Stepper Nutrition - 30-Day Assessment Program Goals Nutrition Program Goals Patient has diagnosis of Hyperlipidemia (ICD E78)?: Yes Visit Date of Eval: 07/14/24 Session #:: 7 Cholesterol/Lipids (Other Core Measures) Determine presence & major risk factors that modify LDL goal: Cigarette smoking, Hypertension or hypertensive medication, Low HDL cholesterol <40 mg/dL*, Family history of premature CHD in Male < 55 years: female <65 yearsFa and Age men > 45 years; women >/= 55 years Outcomes/Goals: Pt IDs own risk factors & lifestyle modifications by Session 10, Verbalizes symptoms of angina & response by session 3., Pt independently manages and Other Additional Outcomes/Goals: Intervention/Plan: Advocate for lipid panel cholesterol medication if applicable, Instruct on personal lipid levels & lipid goals/NCEP guidelines, Instruct on cholesterol and Other additional plan/int Diabetes (Other Core Measures) Diabetes Type: Not Applicable Weight Mgt (Other Care) Height: 5 ft 6 in Weight:: 215 lb BMI: 34.7 Diagnosis Overweight/Obesity BMI> 30% ICD-10 E66: Yes Diagnosis High BMI/Morbid Obesity BMI> 35% ICD-10 Z68: No Outcomes/Goals: Pt sets, maintains & shows weight loss goal & trend during rehab and Other additional outcomes/goals Intervention/Plan: Instruct on ideal BMI & set weight loss goal w/patient, Assist pt to ID & incorporate diet changes for weight loss by S9, Refer to Structured Weight Loss program as appropriate, Encourage goal of using 250-300dcal per session for weight loss and Other additional plan/interventions Healthy Eating Habits Will attend diet classes:: Yes Outcomes/Goals:: Consume diet rich in vegs,fruits,whole grain/high fiber,fish,lean meat, Limit sat/trans fats,cholesterol & added salts & sugars and Other additional outcome/goals: Intervention/Plan:: Assess current eating habits and Other Additional plan/interventions 30-day Reassessments:: Progressing Reassessment Notes & Comments:: Pt is attending nutrition class this week. Low sodium heart healthy diet encouraged. Education Gave educational materials for:: Signs & symptoms of hypoglycemia, Signs & symptoms of hyperglycemia, Relate diabetes to coronary artery disease and Healthy eating Nutrition - 60-Day Assessment Weight Mgt (Other Care) Height: 5 ft 6 in Weight:: 215 lb BMI: 34.7 Core - 30-Day Assessment Visit Date of Eval: 07/14/24 Session #:: 7 Medication Compliance Preventative Medication(s):: Aspirin, SKYLER inhibitor, Statin/lipid and Beta cecily H/O mental health issues: depression, anxiety, or addiction?: No Doesn?t believe in the benefits of treatment?: No Believes medications are unnecessary or harmful?: No Has a concern about medication side effects?: No Expresses concern over the cost of medications?: No Outcomes/Goals: Verbalizes medications,desired effect & common side effects @ DC, Pt self-reports following medication regimen, Keeps card in wallet w/medications listed by DC and Other additional outcome/goals: Interventions/plans: Instruct on medication effects & side effects, Review medication list w/patient every two weeks, Instruct importance of taking meds as ordered & assist problem solving and Other additional Tobacco Use Tobacco Use: Non-smoker Hypertension Hypertension Diagnosis:: Hypertension ICD-10 I10 Resting Blood Pressure:: 138/70 [place] [employer] Hypertension Guidelines Peak Exercise Blood Pressure:: 178/88 Outcomes/Goals: Able to verbalize/achieve optimal blood pressure <130/80, Incorporates diet changes & exercise for blood pressure control by DC and Other additional outcomes/goals Interventions/plan: Instruct on optimal blood pressure, hypertension & medications, Instruct on effects of sodium, alcohol, stress, exercise &hypertension and Other additional plan/interventions 30 day Reassessments:: Progressing Reassessment Notes & Comments:: Pt's BP's are elevated. Weight loss and a low sodium heart healthy diet encouraged to help lower pressures. Will send report to pt's physician if necessary. Tobacco Cessation Referral Smoking Cessation Referral:: No Individual Education/Counseling:: No Education Schedule Given:: Yes Psychosocial - 30-Day Assess VIsit Date of Eval: 07/14/24 History of Emotional Disorders: Anxious Target Goals Target Goals Psychosocial Test Tool Used:: [employer] QOL Cardiac and PHQ-9 Questionnaire phq-9 Severity Referral to Behavioral Health PS - Interventions: Yes: Attend Stress Management Classes Outcomes/Goals: See list Psychosocial Outcomes/Goals:: ID's personal stressors & 2 strategies to manage stress by discharge and Other Additional outcome/goals: Intervention/Plan: See List Interventions/Plan:: Assess stressors,coping strategies & signs of derpression on admission, Instruct/assist pt to develop coping & personal stress Mgt strategies, Refer to Behavioral Health if appropriate, Refer to Physician if appropriate, Instruct patient to recognize signs & symptoms of depression, Instruct patient to recog and Other additional plan/intervention 30-day Reassessments: 30 day Reassessments:: Progressing Reassessment Notes & Comments:: Pt is scheduled to attend stress management class. Psychosocial - 60-Day Assess Target Goals Target Goals Referral to Behavioral Health PS - Interventions: Yes: Attend Stress Management Classes Outcomes/Goals: See list Psychosocial Outcomes/Goals:: ID's personal stressors & 2 strategies to manage stress by discharge and Other Additional outcome/goals: Psychosocial - 90-Day Assess Target Goals Target Goals Referral to Behavioral Health PS - Interventions: Yes: Attend Stress Management Classes Psychosocial - Final Assessmen Target Goals Target Goals Referral to Behavioral Health PS - Interventions: Yes: Attend Stress Management Classes Nutrition - 90-Day Assessment Weight Mgt (Other Care) Height: 5 ft 6 in Weight:: 215 lb BMI: 34.7 Nutrition - Final Assessment Weight Mgt (Other Care) Height: 5 ft 6 in Weight:: 215 lb BMI: 34.7
[2024-07-14 08:50] VITALS: BP 138/70; BMI 34.7
[2024-07-14 08:58] VITALS: BP 138/70
== END 2024-07-22 23:59 ==
LOC: CR 15:15
PROVIDERS: PCP Family Medicine; Referring Provider Thoracic Surgery (Cardiothoracic Vascular Surgery); Visit Provider Thoracic Surgery (Cardiothoracic Vascular Surgery)
DX: Z95.1 Presence of aortocoronary bypass graft (principal)
CPT/HCPCS: 93798

== ENCOUNTER → 2024-08-13 | Outpatient (CLI) | payer BC, SELFPAY ==
[2024-08-11 13:26] VITALS: BMI 34.0
[2024-08-13 12:20] LABS: Hemoglobin A1c 6.7 % (<=5.6)
[2024-08-13 12:23] LABS: AST(SGOT) 15 U/L (<=37); Alanine Aminotransfer ALT/SGPT 11 U/L (<=46); Anion Gap 12 (5-15); BUN 12 mg/dL (4-19); BUN/Creat Ratio 15.9 RATIO (10-20); Calcium,Total 9.3 mg/dL (7.6-11.0); Carbon Dioxide 22.1 mmol/L (21.0-32.0); Chloride 101 mmol/L (98-108); Cholesterol 105 mg/dL (<=200); Creatinine, Serum 0.76 mg/dL (0.70-1.20); EST Glomerular Filtration Rate 108 (>60); Glucose 120 mg/dL (70-99); High Density Lipoprotein 32 mg/dL; Low Density Lipoprotein Calc. 52 mg/dL; Potassium 4.2 mmol/L (3.3-5.1); Sodium Level 135 mmol/L (133-145); Triglycerides 105 mg/dL; Very Low Density Lipoprotein 21 mg/dL (5-40)
[2024-08-13 16:54] LABS: Microalbumin:Creatinine Ratio 1901.2 mg/g CRE
== END | disposition home or self-care (01) ==
LOC: LAB 11:26
PROVIDERS: PCP Family Medicine; Referring Provider Nurse Practitioner Adult Health; Visit Provider Nurse Practitioner Adult Health
DX: E11.65 Type 2 diabetes mellitus with hyperglycemia (principal); E78.2 Mixed hyperlipidemia
CPT/HCPCS: 36415; 80048; 80061; 82043; 82570; 83036; 84450; 84460

== ENCOUNTER 2024-08-19 15:15 | Outpatient (RCR) | payer BC, SELFPAY ==
[2024-07-14 08:50] VITALS: BMI 34.7
[2024-07-23 02:37] VITALS: BP 138/70
--- NOTE | 2024-08-11 13:08 | PCM.CR.ITP ---
Exercise - Initial Assessment Physician Prescribed Exercise Modalities: Treadmill, Schwinn Airdyne AD-7 and SciFit Stepper Nutrition - Initial Assessment Weight Mgt (Other Care) Height: 5 ft 6 in Weight:: 211 lb BMI: 34.0 Core - Initial Assessment Hypertension Resting Blood Pressure:: 102/60 Citizen Of [place] [employer] Hypertension Guidelines Psychosocial - Initial Assess Target Goals Target Goals Referral to Behavioral Health PS - Interventions: Yes: Attend Stress Management Classes Patient Health Questionnaire PHQ-9 Screening 60-Day Re-eval Assessment: 1. Little interest or pleasure in doing things: Several days 2. Feeling down, depressed, or hopeless: Not at all 3. Trouble falling or staying asleep, or sleeping too much: Several days 4. Feeling tired or having little energy: Several days 5. Poor appetite or overeating: Not at all 6. Feeling bad about yourself -- or that you are a failure or have let yourself or your family down: Several days 7. Trouble concentrating on things, such as reading the newspaper or watching television: Not at all 8. Moving or speaking so slowly that other people could have noticed. Or the opposite - being so fidgety or restless that you have been moving around a lot more than usual: Not at all 9. Thoughts that you would be better off , or of hurting yourself in some way: Not at all How difficult have these problems made it for you to do your work, take care of things at home, or get along with other people?: Not difficult at all Total Score: 4 Self-Efficacy 6-Item Scale 60-Day Re-eval Assessment: We would like to know how confident you are in doing certain activities. Please select your confidence level for: Fatigue Select Number: 6 Physical Discomfort or Pain Select Number: 7 Emotional Distress Select Number: 5 Other Symptoms or Health Problems Select Number: 5 Different Tasks and Activities Select Number: 6 Medication Select Number: 6 Total Score:: 5 Nutrition Survey Nutrition Survey Instructions Scoring Instructions Exercise - 30-day Assessment Physician Prescribed Exercise Modalities: Treadmill, Schwinn Airdyne AD-7 and SciFit Stepper Exercise - 60-day Assessment Visit Date of Eval: 08/11/24 Session #:: 17 Physician Prescribed Exercise Modalities: Treadmill, Schwinn Airdyne AD-7 and SciFit Stepper Frequency: 3x/week for 12 weeks [36 sessions] Intensity: 60-80% of age predicted maximum heart rate reserve Duration: 30 - 45 minutes Current METSs:: 3.3 Target Heart Rate:: 100-125 Current RPE:: 12-12.5 Maximum Excercise HR:: 109 Resting Blood Pressure: 132/70 Maximum Exercise Blood Pressure: 150/80 EKG Type: NSR to ST w/BBB, occas PVC and PAC. Quadrigemony, trigeminy, bigeminy note Outcomes & Goals Goals:: Verbalizes understanding of THR, RPE & goal METS by session 6, Documents in home exercise log/reports 30 min aerobic 5 day/wk by DC, Demonstrates accurate pulse taking by DC and Other additional outcome/goals: see below Intervention & Plan Exercise Program Goals: Instruct on personal THR & RPE, Instruct on MET level & personal MET goal, Show patient to take own pulse /validate performance until accurate, Instruct on home exercise and Other additional plan/int Physical Activity Home Exercise Physical Activity - Home Exercise: Safe Exercise, Warm-up, Self-monitoring, Cool-Down, Home Exercise > 30 min Daily and Sitting Time <3 hours/daily Intervention & Plan Plan/Intervention: Instruct warm-up & cool-down if exercising at > 2 METs, Instruct on symptoms of exercise intolerance & actions to take, Instruct & monitor on saf, Assess intial functional capacity & safety risk and Other See below 30-day Reassessments 30 day Reassessments:: Progressing Reassessment Notes & Comments:: Proper warm up and cool down explained to pt. Pt [id number] understanding. Pt has been able to increase his exercise intensity. Will continue to encourage. Exercise - 90-day Assessment Physician Prescribed Exercise Modalities: Treadmill, Schwinn Airdyne AD-7 and SciFit Stepper Exercise - Final/Discharge Physician Prescribed Exercise Modalities: Treadmill, Schwinn Airdyne AD-7 and SciFit Stepper Nutrition - 30-Day Assessment Weight Mgt (Other Care) Height: 5 ft 6 in Weight:: 211 lb BMI: 34.0 Nutrition - 60-Day Assessment Program Goals Nutrition Program Goals Patient has diagnosis of Hyperlipidemia (ICD E78)?: Yes Visit Date of Eval: 08/11/24 Session #:: 17 Cholesterol/Lipids (Other Core Measures) Determine presence & major risk factors that modify LDL goal: Cigarette smoking, Hypertension or hypertensive medication, Low HDL cholesterol <40 mg/dL*, Family history of premature CHD in Male < 55 years: female <65 yearsFa and Age men > 45 years; women >/= 55 years Outcomes/Goals: Pt IDs own risk factors & lifestyle modifications by Session 10, Verbalizes symptoms of angina & response by session 3., Pt independently manages and Other Additional Outcomes/Goals: Intervention/Plan: Advocate for lipid panel cholesterol medication if applicable, Instruct on personal lipid levels & lipid goals/NCEP guidelines, Instruct on cholesterol and Other additional plan/int Diabetes (Other Core Measures) Diabetes Type: Not Applicable Weight Mgt (Other Care) Height: 5 ft 6 in Weight:: 211 lb BMI: 34.0 Diagnosis Overweight/Obesity BMI> 30% ICD-10 E66: Yes Diagnosis High BMI/Morbid Obesity BMI> 35% ICD-10 Z68: No Outcomes/Goals: Pt sets, maintains & shows weight loss goal & trend during rehab and Other additional outcomes/goals Intervention/Plan: Instruct on ideal BMI & set weight loss goal w/patient, Assist pt to ID & incorporate diet changes for weight loss by S9, Refer to Structured Weight Loss program as appropriate, Encourage goal of using 250-300dcal per session for weight loss and Other additional plan/interventions Healthy Eating Habits Will attend diet classes:: Yes Outcomes/Goals:: Consume diet rich in vegs,fruits,whole grain/high fiber,fish,lean meat, Limit sat/trans fats,cholesterol & added salts & sugars and Other additional outcome/goals: Intervention/Plan:: Assess current eating habits and Other Additional plan/interventions 30-day Reassessments:: Progressing Reassessment Notes & Comments:: Pt has attended nutrition class. Pt continues to lose weight. Pt understands the importance of a heart healthy low sodium diet. Education Gave educational materials for:: Signs & symptoms of hypoglycemia, Signs & symptoms of hyperglycemia, Relate diabetes to coronary artery disease and Healthy eating Core - Final Assessment Hypertension Resting Blood Pressure:: 102/60 Citizen Of [place] [employer] Hypertension Guidelines Core - 60-Day Assessment Visit Date of Eval: 08/11/24 Session #:: 17 Medication Compliance Preventative Medication(s):: Aspirin, SKYLER inhibitor, Statin/lipid and Beta cecily H/O mental health issues: depression, anxiety, or addiction?: No Doesn?t believe in the benefits of treatment?: No Believes medications are unnecessary or harmful?: No Has a concern about medication side effects?: No Expresses concern over the cost of medications?: No Outcomes/Goals: Verbalizes medications,desired effect & common side effects @ DC, Pt self-reports following medication regimen, Keeps card in wallet w/medications listed by DC and Other additional outcome/goals: Interventions/plans: Instruct on medication effects & side effects, Review medication list w/patient every two weeks, Instruct importance of taking meds as ordered & assist problem solving and Other additional Tobacco Use Tobacco Use: Non-smoker Hypertension Hypertension Diagnosis:: Hypertension ICD-10 I10 Resting Blood Pressure:: 132/70 Resting Blood Pressure:: 102/60 Citizen Of [place] [employer] Hypertension Guidelines Peak Exercise Blood Pressure:: 150/80 Outcomes/Goals: Able to verbalize/achieve optimal blood pressure <130/80, Incorporates diet changes & exercise for blood pressure control by DC and Other additional outcomes/goals Interventions/plan: Instruct on optimal blood pressure, hypertension & medications, Instruct on effects of sodium, alcohol, stress, exercise &hypertension and Other additional plan/interventions 30 day Reassessments:: Progressing Reassessment Notes & Comments:: Pt's BP's are still slightly elevated. Continue to encouraged a low sodium heart healthy diet and weight loss. Tobacco Cessation Referral Smoking Cessation Referral:: No Individual Education/Counseling:: No Education Schedule Given:: Yes Psychosocial - 30-Day Assess Target Goals Target Goals Referral to Behavioral Health PS - Interventions: Yes: Attend Stress Management Classes Outcomes/Goals: See list Psychosocial Outcomes/Goals:: ID's personal stressors & 2 strategies to manage stress by discharge and Other Additional outcome/goals: Psychosocial - 60-Day Assess VIsit Date of Eval: 08/11/24 Session #:: 17 History of previous Mental disease:: Yes History of Emotional Disorders: Anxious Target Goals Target Goals Psychosocial Test Tool Used:: PHQ-9 Questionnaire phq-9 Severity Referral to Behavioral Health PS - Interventions: Yes: Attend Stress Management Classes Outcomes/Goals: See list Psychosocial Outcomes/Goals:: ID's personal stressors & 2 strategies to manage stress by discharge and Other Additional outcome/goals: Intervention/Plan: See List Interventions/Plan:: Assess stressors,coping strategies & signs of derpression on admission, Instruct/assist pt to develop coping & personal stress Mgt strategies, Refer to Behavioral Health if appropriate, Refer to Physician if appropriate, Instruct patient to recognize signs & symptoms of depression, Instruct patient to recog and Other additional plan/intervention 30-day Reassessments: 30 day Reassessments:: Progressing Reassessment Notes & Comments:: Pt appears to be doing very well and is scheduled to attend stress management class Psychosocial - 90-Day Assess Target Goals Target Goals Referral to Behavioral Health PS - Interventions: Yes: Attend Stress Management Classes Psychosocial - Final Assessmen Target Goals Target Goals Referral to Behavioral Health PS - Interventions: Yes: Attend Stress Management Classes Nutrition - 90-Day Assessment Weight Mgt (Other Care) Height: 5 ft 6 in Weight:: 211 lb BMI: 34.0 Nutrition - Final Assessment Weight Mgt (Other Care) Height: 5 ft 6 in Weight:: 211 lb BMI: 34.0
[2024-08-11 13:26] VITALS: BP 102/60; BP 132/70; BMI 34.0
== END 2024-08-22 23:59 ==
LOC: CR 15:15
PROVIDERS: PCP Family Medicine; Referring Provider Thoracic Surgery (Cardiothoracic Vascular Surgery); Visit Provider Thoracic Surgery (Cardiothoracic Vascular Surgery)
DX: Z95.1 Presence of aortocoronary bypass graft (principal)
CPT/HCPCS: 93798

== ENCOUNTER → 2024-08-26 | Outpatient (CLI) | payer BC, SELFPAY ==
[2024-08-11 13:26] VITALS: BMI 34.0
[2024-08-26 16:28] LABS: Absolute Lymphocyte Count 2.11 X10^3/uL (0.83-4.51); Absolute Neutrophil Count 5.2 X10^3/uL (2.0-7.7); Basophil# 0.04 X10^3/uL; Basophil% 0.5 % (0-1); Eosinophil# 0.07 X10^3/uL; Eosinophils% 0.8 % (0-5); Hematocrit 43.3 % (40-54); Hemoglobin 13.6 g/dL (13.0-16.5); Lymphocyte # 2.11 X10^3/ul (0.83-4.51); Lymphocyte % 24.9 % (19-41); Mean Corp Hgb Conc 31.4 g/dL (32-36); Mean Corpuscular Volume 76.4 fL (80-94); Monocyte% 11.8 % (0-10); NRBC Flagged by Analyzer 0 % (0-5); Neutrophil # 5.22 X10^3/uL (2.7-7.7); Neutrophil % 61.8 % (47-70); Platelet Count 362 K/mm3 (150-450); RBC Distribution Width CV 16.4 % (11.6-14.6); RBC Distribution Width SD 43.8 fl (35.1-43.9); Red Blood Count 5.67 M/mm3 (4.6-6.2); White Blood Count 8.5 K/mm3 (4.4-11.0)
[2024-08-26 16:57] LABS: ALB/GLOB Ratio 1.3 RATIO (0.9-2.4); AST(SGOT) 17 U/L (<=37); Alanine Aminotransfer ALT/SGPT 13 U/L (<=46); Albumin, Serum 4.3 g/dL (3.5-5.0); Alkaline Phosphatase 85 U/L (40-129); Anion Gap 13 (5-15); BUN 16 mg/dL (4-19); Calcium,Total 9.9 mg/dL (7.6-11.0); Carbon Dioxide 22.2 mmol/L (21.0-32.0); Chloride 102 mmol/L (98-108); Creatinine, Serum 0.74 mg/dL (0.70-1.20); EST Glomerular Filtration Rate 108 (>60); Globulin 3.3 g/dL (2.2-4.2); Glucose 74 mg/dL (70-99); Protein, Total 7.6 g/dL (5.9-8.4); Sodium Level 137 mmol/L (133-145); Total Bilirubin 0.31 mg/dL (0.00-1.30)
== END | disposition home or self-care (01) ==
LOC: LAB 15:44
PROVIDERS: PCP Family Medicine; Visit Provider Nurse Practitioner Adult Health
DX: E11.21 Type 2 diabetes mellitus with diabetic nephropathy (principal); I42.9 Cardiomyopathy, unspecified
CPT/HCPCS: 36415; 80053; 85025

== ENCOUNTER 2024-09-21 15:15 | Outpatient (RCR) | payer BC, SELFPAY ==
[2024-08-11 13:26] VITALS: BMI 34.0
[2024-08-23 00:56] VITALS: BP 102/60; BP 132/70; BP 138/70
--- NOTE | 2024-09-06 07:10 | PCM.CR.ITP ---
Exercise - Initial Assessment Physician Prescribed Exercise Modalities: Treadmill, Schwinn Airdyne AD-7 and SciFit Stepper Nutrition - Initial Assessment Weight Mgt (Other Care) Height: 5 ft 6 in Weight:: 206 lb BMI: 33.2 Psychosocial - Initial Assess Target Goals Target Goals Referral to Behavioral Health PS - Interventions: Yes: Attend Stress Management Classes Patient Health Questionnaire PHQ-9 Screening 90-Day Re-eval Assessment: 1. Little interest or pleasure in doing things: Several days 2. Feeling down, depressed, or hopeless: Not at all 3. Trouble falling or staying asleep, or sleeping too much: Several days 4. Feeling tired or having little energy: Several days 5. Poor appetite or overeating: Not at all 6. Feeling bad about yourself -- or that you are a failure or have let yourself or your family down: Several days 7. Trouble concentrating on things, such as reading the newspaper or watching television: Not at all 8. Moving or speaking so slowly that other people could have noticed. Or the opposite - being so fidgety or restless that you have been moving around a lot more than usual: Not at all 9. Thoughts that you would be better off , or of hurting yourself in some way: Not at all How difficult have these problems made it for you to do your work, take care of things at home, or get along with other people?: Not difficult at all Total Score: 4 Self-Efficacy 6-Item Scale 90-Day Re-eval Assessment: We would like to know how confident you are in doing certain activities. Please select your confidence level for: Fatigue Select Number: 6 Physical Discomfort or Pain Select Number: 7 Emotional Distress Select Number: 5 Other Symptoms or Health Problems Select Number: 5 Different Tasks and Activities Select Number: 6 Medication Select Number: 6 Total Score:: 5 Nutrition Survey Nutrition Survey Instructions Scoring Instructions Exercise - 30-day Assessment Physician Prescribed Exercise Modalities: Treadmill, Schwinn Airdyne AD-7 and SciFit Stepper Exercise - 60-day Assessment Physician Prescribed Exercise Modalities: Treadmill, Schwinn Airdyne AD-7 and SciFit Stepper Exercise - 90-day Assessment Visit Date of Eval: 09/06/24 Session #:: 27 Physician Prescribed Exercise Modalities: Treadmill, Schwinn Airdyne AD-7 and SciFit Stepper Frequency: 3x/week for 12 weeks [36 sessions] Intensity: 60-80% of age predicted maximum heart rate reserve Duration: 30 - 45 minutes Current METSs:: 3.9 Target Heart Rate:: 100-134 Current RPE:: 12-13 Maximum Excercise HR:: 123 Resting Blood Pressure: 160/90 Maximum Exercise Blood Pressure: 168/108 EKG Type: NSR-ST w/1st degree block, rare PVC, one couplet. Outcomes & Goals Goals:: Verbalizes understanding of THR, RPE & goal METS by session 6, Documents in home exercise log/reports 30 min aerobic 5 day/wk by DC, Demonstrates accurate pulse taking by DC and Other additional outcome/goals: see below Intervention & Plan Exercise Program Goals: Instruct on personal THR & RPE, Instruct on MET level & personal MET goal, Show patient to take own pulse /validate performance until accurate, Instruct on home exercise and Other additional plan/int Physical Activity Home Exercise Physical Activity - Home Exercise: Safe Exercise, Warm-up, Self-monitoring, Cool-Down, Home Exercise > 30 min Daily and Sitting Time <3 hours/daily Outcomes & Goals Outcomes/Goals: Demonstrates correct Warm-up/exercise Cool-Down (S3) if = 2.5 METs, Verbalizes symptoms of exercise intolerance by Session 3 (S3), Demonstrate safe equipment use (S3) & follows exercise prescrition (6) and Other: See below Intervention & Plan Plan/Intervention: Instruct warm-up & cool-down if exercising at > 2 METs, Instruct on symptoms of exercise intolerance & actions to take, Instruct & monitor on saf, Assess intial functional capacity & safety risk and Other See below 30-day Reassessments 30 day Reassessments:: Progressing Reassessment Notes & Comments:: 09/05 pt stopped exercise early d/t stress of elevated BP. Pt denies CP or SOB. Pt did not want to go to ED. Message left with PCP. Pt has appointment with jump roll operator on 09/08. Multisession report will be given to pt to take to jump roll operator. Exercise - Final/Discharge Physician Prescribed Exercise Modalities: Treadmill, Schwinn Airdyne AD-7 and SciFit Stepper Nutrition - 30-Day Assessment Weight Mgt (Other Care) Height: 5 ft 6 in Weight:: 206 lb BMI: 33.2 Nutrition - 60-Day Assessment Weight Mgt (Other Care) Height: 5 ft 6 in Weight:: 206 lb BMI: 33.2 Core - 30-Day Assessment Hypertension [place] [employer] Hypertension Guidelines Reassessment Notes & Comments:: 09/05 pt stopped exercise early d/t stress of elevated BP. Pt denies CP or SOB. Pt did not want to go to ED. Message left with PCP. Pt has appointment with jump roll operator on 09/08. Multisession report will be given to pt to take to jump roll operator with log of BP's. Core - Final Assessment Hypertension [place] [employer] Hypertension Guidelines Reassessment Notes & Comments:: 09/05 pt stopped exercise early d/t stress of elevated BP. Pt denies CP or SOB. Pt did not want to go to ED. Message left with PCP. Pt has appointment with jump roll operator on 09/08. Multisession report will be given to pt to take to jump roll operator with log of BP's. Core - 90 Day Assessment Visit Date of Eval: 09/06/24 Session #:: 27 Medication Compliance Preventative Medication(s):: SKYLER inhibitor, Statin/lipid and Beta cecily H/O mental health issues: depression, anxiety, or addiction?: No Doesn?t believe in the benefits of treatment?: No Believes medications are unnecessary or harmful?: No Has a concern about medication side effects?: No Expresses concern over the cost of medications?: No Outcomes/Goals: Verbalizes medications,desired effect & common side effects @ DC, Pt self-reports following medication regimen, Keeps card in wallet w/medications listed by DC and Other additional outcome/goals: Interventions/plans: Instruct on medication effects & side effects, Review medication list w/patient every two weeks, Instruct importance of taking meds as ordered & assist problem solving and Other additional Tobacco Use Tobacco Use: Non-smoker Hypertension Hypertension Diagnosis:: Hypertension ICD-10 I10 Resting Blood Pressure:: 160/90 [place] [employer] Hypertension Guidelines Peak Exercise Blood Pressure:: 168/108 Outcomes/Goals: Able to verbalize/achieve optimal blood pressure <130/80, Incorporates diet changes & exercise for blood pressure control by DC and Other additional outcomes/goals Interventions/plan: Instruct on optimal blood pressure, hypertension & medications, Instruct on effects of sodium, alcohol, stress, exercise &hypertension and Other additional plan/interventions 30 day Reassessments:: Progressing Reassessment Notes & Comments:: 09/05 pt stopped exercise early d/t stress of elevated BP. Pt denies CP or SOB. Pt did not want to go to ED. Message left with PCP. Pt has appointment with jump roll operator on 09/08. Multisession report will be given to pt to take to jump roll operator with log of BP's. Tobacco Cessation Referral Smoking Cessation Referral:: No Individual Education/Counseling:: No Education Schedule Given:: Yes Psychosocial - 30-Day Assess Target Goals Target Goals Referral to Behavioral Health PS - Interventions: Yes: Attend Stress Management Classes Psychosocial - 60-Day Assess Target Goals Target Goals Referral to Behavioral Health PS - Interventions: Yes: Attend Stress Management Classes Psychosocial - 90-Day Assess VIsit Date of Eval: 09/06/24 Session #:: 27 History of previous Mental disease:: Yes History of Emotional Disorders: Anxious Target Goals Target Goals Psychosocial Test Tool Used:: [email or web address] QOL Cardiac and PHQ-9 Questionnaire phq-9 Severity See PHQ-9 Score: 4 Referral to Behavioral Health PS - Interventions: Yes: Attend Stress Management Classes Outcomes/Goals: See list Psychosocial Outcomes/Goals:: ID's personal stressors & 2 strategies to manage stress by discharge and Other Additional outcome/goals: Intervention/Plan: See List Interventions/Plan:: Assess stressors,coping strategies & signs of derpression on admission, Instruct/assist pt to develop coping & personal stress Mgt strategies, Refer to Behavioral Health if appropriate, Refer to Physician if appropriate, Instruct patient to recognize signs & symptoms of depression, Instruct patient to recog and Other additional plan/intervention 30-day Reassessments: 30 day Reassessments:: Progressing Reassessment Notes & Comments:: Emotionally pt appears to be doing well. Pt is scheduled to attend stress management class. Psychosocial - Final Assessmen Target Goals Target Goals Referral to Behavioral Health PS - Interventions: Yes: Attend Stress Management Classes Nutrition - 90-Day Assessment Program Goals Nutrition Program Goals Patient has diagnosis of Hyperlipidemia (ICD E78)?: Yes Visit Date of Eval: 09/06/24 Session #:: 27 Cholesterol/Lipids (Other Core Measures) Determine presence & major risk factors that modify LDL goal: Cigarette smoking, Hypertension or hypertensive medication, Low HDL cholesterol <40 mg/dL*, Family history of premature CHD in Male < 55 years: female <65 yearsFa and Age men > 45 years; women >/= 55 years Outcomes/Goals: Pt IDs own risk factors & lifestyle modifications by Session 10, Verbalizes symptoms of angina & response by session 3., Pt independently manages and Other Additional Outcomes/Goals: Intervention/Plan: Advocate for lipid panel cholesterol medication if applicable, Instruct on personal lipid levels & lipid goals/NCEP guidelines, Instruct on cholesterol and Other additional plan/int Diabetes (Other Core Measures) Diabetes Type: Not Applicable Weight Mgt (Other Care) Height: 5 ft 6 in Weight:: 206 lb BMI: 33.2 Diagnosis Overweight/Obesity BMI> 30% ICD-10 E66: Yes Diagnosis High BMI/Morbid Obesity BMI> 35% ICD-10 Z68: No Outcomes/Goals: Pt sets, maintains & shows weight loss goal & trend during rehab and Other additional outcomes/goals Intervention/Plan: Instruct on ideal BMI & set weight loss goal w/patient, Assist pt to ID & incorporate diet changes for weight loss by S9, Refer to Structured Weight Loss program as appropriate, Encourage goal of using 250-300dcal per session for weight loss and Other additional plan/interventions Healthy Eating Habits Will attend diet classes:: Yes Outcomes/Goals:: Consume diet rich in vegs,fruits,whole grain/high fiber,fish,lean meat, Limit sat/trans fats,cholesterol & added salts & sugars and Other additional outcome/goals: Intervention/Plan:: Assess current eating habits and Other Additional plan/interventions 30-day Reassessments:: Progressing Reassessment Notes & Comments:: Pt has attended nutrition class. Heart healthy low sodium diet encouraged. Pt has lost 4 more lbs. Will continue to encourage. Education Gave educational materials for:: Signs & symptoms of hypoglycemia, Signs & symptoms of hyperglycemia, Relate diabetes to coronary artery disease and Healthy eating Nutrition - Final Assessment Weight Mgt (Other Care) Height: 5 ft 6 in Weight:: 206 lb BMI: 33.2
[2024-09-06 07:23] VITALS: BP 160/90; BMI 33.2
== END 2024-09-21 23:59 ==
LOC: CR 15:15
PROVIDERS: PCP Family Medicine; Referring Provider Thoracic Surgery (Cardiothoracic Vascular Surgery); Visit Provider Thoracic Surgery (Cardiothoracic Vascular Surgery)
DX: Z95.1 Presence of aortocoronary bypass graft (principal)
CPT/HCPCS: 93798

== ENCOUNTER 2024-09-30 15:15 | Outpatient (RCR) | payer BC, SELFPAY ==
[2024-09-06 07:23] VITALS: BMI 33.2
[2024-09-22 00:41] VITALS: BP 102/60; BP 132/70; BP 138/70; BP 160/90
== END 2024-10-22 23:59 ==
LOC: CR 15:15
PROVIDERS: PCP Family Medicine; Referring Provider Thoracic Surgery (Cardiothoracic Vascular Surgery); Visit Provider Thoracic Surgery (Cardiothoracic Vascular Surgery)
DX: Z95.1 Presence of aortocoronary bypass graft (principal)
CPT/HCPCS: 93798

== ENCOUNTER → 2024-11-19 | Outpatient (CLI) | payer BC, SELFPAY ==
[2024-09-06 07:23] VITALS: BMI 33.2
--- OUTSIDE RECORDS SUMMARY | 2024-11-19 09:44 | XMS RPT_ITS | CCD ---
Author Organization [facility] Care Team Providers Care Lighting Engineer Name Role Phone Dr. Krista Schmidt Primary Care Provider [phone] Dr. Krista Schmidt Referring Provider [phone] MENDEZ Tran Attending Provider Dr. Krista Schmidt Primary Care Provider [phone] Krista Schmidt Referring Provider [phone] MENDEZ Rausch Attending Provider Krista Schmidt MD Primary Care Provider [phone] Krista Schmidt Primary Care Provider [phone] Krista Schmidt Referring Provider [phone] MENDEZ Rausch Attending Provider MENDEZ Yost Attending Provider MENDEZ Rausch Attending Provider MENDEZ Yost Attending Provider Krista Schmidt MD Primary Care Provider Krista Schmidt MD Primary Care Provider [phone] Catrachito MUÑIZ, PhD, Jacky Jordan Unavailable Jamal Turcios MD Unavailable [phone] Catrachito MUÑIZ, PhD, Jacky Jordan Unavailable Jamal Turcios MD Unavailable [phone] Dr. Krista Schmidt MD Primary Care Provider Jacky Meyer MD Attending Provider Jacky Meyer MD Referring Provider Sheltonorrdelfina TODDLER CAREGIVER-C, Ham Attending Provider Ashish TODDLER CAREGIVER-C, Ham Referring Provider DAVID TODDLER CAREGIVER-C, THIERRY Attending Provider DAVID TODDLER CAREGIVER-C, THIERRY Referring Provider DAVID PROJECT FACILITATOR-SUPERVISOR FLESHING, THIERRY Rodriguez Attending Unava ilable MANUEL MUÑIZ, GILBERT Juarez Attending Unavailable Brayan MUÑIZ, Krista A Primary Care Provider SCHMIDT, KRISTA A Primary Care Unavailable WALKERYAW Attending Unavailable WALKERYAW M Referring Unavailable WALKERYAW Attending Unavailable WALKER YAW M Referring Unavailable SCHMIDT, KRISTA A Primary Care Unavailable WALKERYAW Attending Unavailable WALKER YAW M Referring Unavailable SCHMIDT, KRISTA A Primary Care Unavailable SCHMIDT, KRISTA A Primary Care Unavailable WALKERYAW Attending Unavailable WALKERYAW Referring Unavailable SCHMIDT, KRISTA A Primary Care Unavailable WALKERYAW Attending Unavailable WALKER YAW M Referring Unavailable BOJAMAL BRAY Referring Unavai lable SCHMIDT, KRISTA A Primary Care Unavailable JACKY MEYER Attending Unavailable JACKY MEYER Attending Unavailable JACKY MEYER Admitting Unavailable CONSULT, ENDOCRINOLOGY-DIABETES Consulting Unavailable JACKY MEYER Referring Unavailable SCHMIDT, KRISTA A Primary Care Unavailable JAMAL TURCIOS Attending UnaJAMAL Agee Admitting Unavai lable SCHMIDT, KRISTA A Primary Care Unavailable SELF, SELF Referring Unavailable JAMAL TURCIOS Referring Unavai lable SCHMIDT, KRISTA A Primary Care Unavailable JACKY MEYER Attending Unavailable SCHMIDT, KRISTA A Referring Unavailable SCHMIDT, KRISTA A Primary Care Unavailable BEATRIZ COMER Attending Unavailable SCHMIDT, KRISTA A Primary Care Unavailable [facility] CARDIO NURSE PRACTITIONER, [facility] Referring Unavailable JACKY MEYER Attending Unavailable SCHMIDT, KRISTA A Primary Care Unavailable KHALIDA FERNANDEZ Attending Unavailable SELF, SELF Referring Unavailable JAMAL TURCIOS Attending Unavai JAMAL Dewitt Referring Unavai lable SCHMIDT, KRISTA A Primary Care Unavailable SCHMIDT, KRISTA A Primary Care Unavailable JAMAL TURCIOS Attending UnavaJAMAL Dawson Referring Unavai lable BOUDOULASJAMAL Attending Unavai lable JAMAL TURCIOS Referring Unavai breanna SCHMIDT, KRISTA A Primary Care Unavailable JAMAL TURCIOS Attending Unavai lable JAMAL TURCIOS Referring Unavai lable SCHMIDT, KRISTA A Primary Care Unavailable SCHMIDT, KRISTA A Referring Unavailable BOZAYRAOULJAMAL PACHECO Attending Haroon SCHMIDT, KRISTA A Primary Care Unavailable JAMAL TURCIOS Referring Unacarlita SCHMIDT, KRISTA A Primary Care Unavailable JACKY MEYER Attending Unavailable SCHMIDT, KRISTA A Referring Unavailable BOZAYRAJAMAL PATTON Attending Haroon SCHMIDT, KRISTA A Primary Care Unavailable SCHMIDT, KRISTA A Primary Care Unavailable Brayan MUÑIZ, Dr. Card Primary Care Provider [phone] Jacky Meyer MD Attending Provider Jacky Meyer MD Referring Provider [phone] DAVID TODDLER CAREGIVER-C, THIERRY Attending Provider [phone] DAVID TODDLER CAREGIVER-C, THIERRY Referring Provider [phone] Schmidt, Krista Primary Care Unavailable Ham Hinojosa Attending Unavailable Ham Hinojosa Referring Unavailable THIERRY HERNANDEZ Attending Unavailable THIERRY HERNANDEZ Referring Unavailable Schmidt, Krista Primary Care Unavailable Jacky Meyer Attending Unavailable Schmidt, Krista Primary Care Unavailable Jacky Meyer Referring Unavailable Jacky Meyer Attending Unavailable Schmidt, Krista Primary Care Unavailable Jacky Meyer Referring Unavailable Schmidt, Krista Primary Care Unavailable Jacky Meyer Referring Unavailable Jacky Meyer Attending Unavailable Jacky Meyer Attending Unavailable Schmidt, Krista Primary Care Unavailable Jacky Meyer Referring Unavailable Schmidt, Krista Primary Care Unavailable Jacky Meyer Referring Unavailable Jacky Meyer Attending Unavailable Jacky Meyer Attending Unavailable Schmidt, Krista Primary Care Unavailable Jacky Meyer Referring Unavailable THIERRY HERNANDEZ Attending Unavailable THIERRY HRENANDEZ Referring Unavailable Lyndon StationKrista Primary Care Unavailable THIERRY HERNANDEZ [facility]ending [facility] Jacky Meyer Attending Unavailable Brayan Krista Primary Care Unavailable Jacky Meyer Referring Unavailable Medications Current Medications Medication Drug Class(es) Dates Sig (Normalized) Sig (Original) allopurinol 100 mg oral tablet (20 sources) Xanthine Oxidase Inhibitor Start: 08-19-2022 take 1 tablet by mouth once daily Allopurinol 100 MG tablet Take 1 tablet by mouth daily. 08/19/2022 Active aspirin 325 mg oral tablet (20 sources) Platelet Aggregation Inhibitor, Nonsteroidal Anti-inflammatory Drug Start: 04-27-2024 End: 05-02-2024 take 1 tablet by mouth once daily Aspirin 325 MG tablet Take 1 tablet by mouth daily. 30 tablet 05/03/2024 Active Start: 04-26-2024 End: 04-26-2024 Start: 03-30-2024 End: 03-29-2024 take 81 mg by mouth once daily in the morning 81 mg, Oral, DAILY EVERY MORNING, First dose on Thu03/30/24 at 0900, Until Discontinued, Post-op/Post-Proc Start: 03-29-2024 End: 03-29-2024 324 mg, Oral, ONCE, 1 dose, On Thu03/29/24 at 1015, Patient to receive at least 30 minutes prior to procedure. Instruct patient to chew and not swallow., Pre-op/Pre-Proc Start: 08-05-2023 End: 08-05-2023 324 mg, Oral, ONCE, 1 dose, On Thu08/05/23 at 1030, Patient to receive at least 30 minutes prior to procedure. Instruct patient to chew and not swallow., Pre-op/Pre-Proc Start: 07-25-2022 End: 07-25-2022 aspirin chewable tablet 81 m g Start: 10-27-2020 End: 05-02-2024 take 1 tablet by mouth once daily Aspirin (Adult Aspirin Regimen) 81 mg tablet,delayed release (DR/EC) Discontinued 81 mg PO DAILY July 19, 2021 1:02pm August 14, 2021 9:36am benzonatate 100 mg oral capsule (6 sources) Non-narcotic Antitussive Start: 01-08-2023 take 2 capsules by mouth three times daily as needed for cough Benzonatate 100 mg capsule Active 200 mg PO THREE TIMES A DAY as needed for cough January 08, 2023 12:00am Start: 01-08-2023 take 200 mg by mouth three times daily Benzonatate Active 200 MG PO THREE TIMES A DAY January 08, 2023 12:00am 12 hr buPROPion hydrochloride 150 mg extended release oral tablet (18 sources) Aminoketone Start: 10-27-2020 End: 07-19-2021 take 1 tablet by mouth twice daily Bupropion Hcl 150 mg tablet sustained-release 12 hr Active 150 mg PO TWICE A DAY 60 July 19, 2021 1:02pm cholecalciferol 1.25 mg oral capsule (9 sources) Vitamin D Start: 10-27-2020 take 1 capsule by mouth every week Cholecalciferol (Vitamin D3) 1,250 mcg (50,000 unit) capsule Active 1250 ug PO EVERY WEEK October 27, 2020 12:00am Drug or medicament (substance) (2 sources) Start: 05-02-2024 glimepiride 2 mg oral tablet (20 sources) Sulfonylurea Start: 06-16-2022 take 1 tablet by mouth once daily gliMEPIride 2 MG TPTT #### [facility] (DEFAULT) [address] [address] Hematocrit (Bld) [Volume fraction] 31 % Low 40-[address] [facility] Comment on above: Performed By: #### P TPTT #### [facility] (DEFAULT) [address] [address] Hemoglobin (Bld) [Mass/Vol] 10.2 g/dL Low 13.4-16.[address] [facility] Comment on above: Performed By: #### P TPTT #### [facility] (DEFAULT) [address] [address] Ionized Calcium, Whole Blood 5.05 mg/dL Normal 4.60-5.[address] [facility] Comment on above: Performed By: #### P TPTT #### [facility] (DEFAULT) [address] [address] Lactate, Whole Blood 3.8 mmol/L High 0.5-1.[address] [facility] Comment on above: Result Comment: Lact ate results >/= 2.0 mmol/L should be followed up with a measurement 2 hours later for patients with suspicion of sepsis. Performed By: #### P TPTT #### [facility] (DEFAULT) [address] [place] [address] Methemoglobin 0.0 % Normal <=1.[address] [facility] Comment on above: Performed By: #### P TPTT #### [facility] (DEFAULT) [address] [place] [address] Oxygen saturation in Blood 95 % Normal 94-[address] [facility] Comment on above: Performed By: #### P TPTT #### [facility] (DEFAULT) [address] [place] [address] Oxyhemoglobin 95 % Normal 94-[address] [facility] Comment on above: Performed By: #### P TPTT #### [facility] (DEFAULT) [address] [place] [address] pCO2 40 mm Hg Normal 32-[address] [facility] Comment on above: Performed By: #### P TPTT #### [facility] (DEFAULT) [address] [place] [address] pH, Arterial 7.35 Normal 7.35-7.[address] [facility] Comment on above: Performed By: #### P TPTT #### [facility] (DEFAULT) [address] [place] [address] pO2 95 mm Hg Normal 83-[address] [facility] Comment on above: Performed By: #### P TPTT #### [facility] (DEFAULT) [address] [address] Potassium [Moles/Vol] 4.0 mmol/L Normal 3.5-5.0 [facility] Comment on above: Performed By: #### P TPTT #### [facility] (DEFAULT) [address] [place] [address] Sodium [Moles/Vol] 134 mmol/L Low 135-145 [facility] Comment on above: Performed By: #### P TPTT #### [facility] (DEFAULT) [address] [place] [address] Specimen type Nom (Spec) Arterial Normal [facility] Comment on above: Performed By: #### P TPTT #### [facility] (DEFAULT) [address] [place] [address] Base excess Calc (Bld) [Moles/Vol] -5.3000 mmol/L Low -3.0 - 3.0 mmol/L [facility] Calcium.ionized (Bld) [Mass/Vol] 5.15 mg/dL 4.60 - 5.30 mg/dL [facility] Carboxyhemoglobin (Bld) [Mass fraction] 0.0 % NINF - 1.5 % [facility] CO2 (Bld) [Partial pressure] 38 mm[Hg] [facility] Glucose [Mass/Vol] 163 mg/dL High 70 - 99 mg/dL [facility] HCO3 (Bld) [Moles/Vol] 21 mmol/L Low 22 - 28 mmol/L [facility] Hematocrit (Bld) [Volume fraction] 31 % Low 40 - 50 % [facility] Hemoglobin (Bld) [Mass/Vol] 10.3 g/dL Low 13.4 - 16.8 g/dL [facility] Interpretation and review of laboratory results Abnormal [facility] Lactate [Moles/Vol] 4.0 mmol/L High 0.5 - 1. 6 mmol/L [facility] Methemoglobin (Bld) [Mass fraction] 0.0 % NINF - 1.5 % [facility] Oxygen (Bld) [Partial pressure] 92 mm[Hg] [facility] Oxygen saturation in Blood 95 % 94 - 98 % [facility] Oxyhemoglobin 95 % 94 - 98 % [facility] pH (Bld) 7.34 [pH] Low 7.35 - 7.45 [facility] Potassium [Moles/Vol] 3.5 mmol/L 3.5 - 5.0 mmol/L [facility] Sodium [Moles/Vol] 135 mmol/L 135 - 145 mmol/L [facility] Specimen source Nom (Unsp spec) Arterial [facility] Base Excess -5.3 mmol/L Low -3.0-3.[address] [facility] Comment on above: Performed By: #### P TPTT #### [facility] (DEFAULT) [address] [place] [address] Carboxyhemoglobin 0.0 % Normal <=1.5 [facility] Comment on above: Performed By: #### P TPTT #### [facility] (DEFAULT) [address] [place] [address] Glucose [Mass/Vol] 163 mg/dL High 70-99 [facility] Comment on above: Performed By: #### P TPTT #### [facility] (DEFAULT) [address] [place] [address] HCO3 (Bld) [Moles/Vol] 21 mmol/L Low 22-28 [facility] Comment on above: Performed By: #### P TPTT #### [facility] (DEFAULT) [address] [place] [address] Hematocrit (Bld) [Volume fraction] 31 % Low 40-[address] [facility] Comment on above: Performed By: #### P TPTT #### [facility] (DEFAULT) [address] [place] [address] Hemoglobin (Bld) [Mass/Vol] 10.3 g/dL Low 13.4-16.[address] [facility] Comment on above: Performed By: #### P TPTT #### [facility] (DEFAULT) [address] [place] [address] Ionized Calcium, Whole Blood 5.15 mg/dL Normal 4.60-5.[address] [facility] Comment on above: Performed By: #### P TPTT #### [facility] (DEFAULT) [address] [place] [address] Lactate, Whole Blood 4.0 mmol/L High 0.5-1.[address] [facility] Comment on above: Result Comment: Lact ate results >/= 2.0 mmol/L should be followed up with a measurement 2 hours later for patients with suspicion of sepsis. Performed By: #### P TPTT #### [facility] (DEFAULT) [address] [place] [address] Methemoglobin 0.0 % Normal <=1.[address] [facility] Comment on above: Performed By: #### P TPTT #### [facility] (DEFAULT) [address] [address] Oxygen saturation in Blood 95 % Normal 94-[address] [facility] Comment on above: Performed By: #### P TPTT #### [facility] (DEFAULT) [address] [address] Oxyhemoglobin 95 % Normal 94-[address] [facility] Comment on above: Performed By: #### P TPTT #### [facility] (DEFAULT) [address] [address] pCO2 38 mm Hg Normal 32-[address] [facility] Comment on above: Performed By: #### P TPTT #### [facility] (DEFAULT) [address] [address] pH, Arterial 7.34 Low 7.35-7.[address] [facility] Comment on above: Performed By: #### P TPTT #### [facility] (DEFAULT) [address] [address] pO2 92 mm Hg Normal 83-[address] [facility] Comment on above: Performed By: #### P TPTT #### [facility] (DEFAULT) [address] [place] [address] Potassium [Moles/Vol] 3.5 mmol/L Normal 3.5-5.0 [facility] Comment on above: Performed By: #### P TPTT #### [facility] (DEFAULT) [address] [place] [address] Sodium [Moles/Vol] 135 mmol/L Normal 135-145 [facility] Comment on above: Performed By: #### P TPTT #### [facility] (DEFAULT) [address] [place] [address] Specimen type Nom (Spec) Arterial Normal [facility] Comment on above: Performed By: #### P TPTT #### [facility] (DEFAULT) [address] [place] [address] ARTERIAL BLOOD GAS PLUS LACT ATEon 04-26-2024 Base excess Calc (Bld) [Moles/Vol] 0.3 mmol/L -3.0 - 3.0 mmol/L [facility] CO2 (Bld) [Partial pressure] 37 mm[Hg] [facility] HCO3 (Bld) [Moles/Vol] 25 mmol/L 22 - 28 mmol/L [facility] Inhaled oxygen concentration [facility] Lactate [Moles/Vol] 1.4 mmol/L 0.5 - 1. 6 mmol/L [facility] Oxygen (Bld) [Partial pressure] 86 mm[Hg] [facility] Oxygen saturation in Blood 96 % 94 - 98 % [facility] pH (Bld) 7.43 [pH] 7.35 - 7.45 [facility] Specimen source Nom (Unsp spec) Arterial [facility] Base Excess 0.3 mmol/L Normal -3.0-3.[address] [facility] Comment on above: Performed By: #### P TPTT #### [facility] (DEFAULT) [address] [place] [address] FIO[address] Normal [facility] Comment on above: Result Comment: 2L Performed By: #### P TPTT #### [facility] (DEFAULT) [address] [place] [address] HCO3 (Bld) [Moles/Vol] 25 mmol/L Normal 22-28 [facility] Comment on above: Performed By: #### P TPTT #### [facility] (DEFAULT) [address] [place] [address] Lactate, Whole Blood 1.4 mmol/L Normal 0.5-1.[address] [facility] Comment on above: Performed By: #### P TPTT #### [facility] (DEFAULT) [address] [place] [address] Oxygen saturation in Blood 96 % Normal 94-[address] [facility] Comment on above: Performed By: #### P TPTT #### [facility] (DEFAULT) [address] [place] [address] pCO2 37 mm Hg Normal 32-[address] [facility] Comment on above: Performed By: #### P TPTT #### [facility] (DEFAULT) [address] [place] [address] pH, Arterial 7.43 Normal 7.35-7.[address] [facility] Comment on above: Performed By: #### P TPTT #### [facility] (DEFAULT) [address] [place] [address] pO2 86 mm Hg Normal 83-[address] [facility] Comment on above: Performed By: #### P TPTT #### [facility] (DEFAULT) [address] [place] [address] Specimen type Nom (Spec) Arterial Normal [facility] Comment on above: Performed By: #### P TPTT #### [facility] (DEFAULT) [address] [place] [address] Base excess Calc (Bld) [Moles/Vol] -2.2000 mmol/L -3.0 - 3.0 mmol/L [facility] CO2 (Bld) [Partial pressure] 45 mm[Hg] [facility] HCO3 (Bld) [Moles/Vol] 24 mmol/L 22 - 28 mmol/L [facility] Interpretation and review of laboratory results Abnormal [facility] Lactate [Moles/Vol] 4.5 mmol/L High 0.5 - 1. 6 mmol/L [facility] Oxygen (Bld) [Partial pressure] 89 mm[Hg] [facility] Oxygen saturation in Blood 95 % 94 - 98 % [facility] pH (Bld) 7.33 [pH] Low 7.35 - 7.45 [facility] Specimen source Nom (Unsp spec) Arterial [facility] Base Excess -2.2 mmol/L Normal -3.0-3.[address] [facility] Comment on above: Order Comment: Colle ct first specimen at 30 minutes of arrival unit. Performed By: #### P TPTT #### [facility] (DEFAULT) [address] [address] HCO3 (Bld) [Moles/Vol] 24 mmol/L Normal 22-28 [facility] Comment on above: Order Comment: Colle ct first specimen at 30 minutes of arrival unit. Performed By: #### P TPTT #### [facility] (DEFAULT) [address] [place] [address] Lactate, Whole Blood 4.5 mmol/L High 0.5-1.[address] [facility] Comment on above: Order Comment: Colle ct first specimen at 30 minutes of arrival unit. Result Comment: Lact ate results >/= 2.0 mmol/L should be followed up with a measurement 2 hours later for patients with suspicion of sepsis. Performed By: #### P TPTT #### [facility] (DEFAULT) [address] [place] [address] Oxygen saturation in Blood 95 % Normal 94-[address] [facility] Comment on above: Order Comment: Colle ct first specimen at 30 minutes of arrival unit. Performed By: #### P TPTT #### [facility] (DEFAULT) [address] [place] [address] pCO2 45 mm Hg Normal 32-[address] [facility] Comment on above: Order Comment: Colle ct first specimen at 30 minutes of arrival unit. Performed By: #### P TPTT #### [facility] (DEFAULT) [address] [place] [address] pH, Arterial 7.33 Low 7.35-7.[address] [facility] Comment on above: Order Comment: Colle ct first specimen at 30 minutes of arrival unit. Performed By: #### P TPTT #### [facility] (DEFAULT) [address] [place] [address] pO2 89 mm Hg Normal 83-[address] [facility] Comment on above: Order Comment: Colle ct first specimen at 30 minutes of arrival unit. Performed By: #### P TPTT #### [facility] (DEFAULT) [address] [place] [address] Specimen type Nom (Spec) Arterial Normal [facility] Comment on above: Order Comment: Colle ct first specimen at 30 minutes of arrival unit. Performed By: #### P TPTT #### [facility] (DEFAULT) [address] [place] [address] YURIDIA AURIS SCREEN BY PCRo n 04-26-2024 Yuridia auris Screen by PCR Not detected Normal Not Detected [facility] Comment on above: Order Comment: This test was performed using a real-time PCR assay. This test was developed, and its performance characteristics determined by [facility]. It has not been cleared or approved by the FDA. The laboratory is regulated under CLIA as qualified to perform high-complexity testing. This test is used for clinical purposes. It should not be regarded as investigational or for research.This test was performed using a real-time PCR assay. This test was developed, and its performance characteristics determined by [facility]. It has not been cleared or approved by the FDA. The laboratory is regulated under CLIA as qualified to perform high-complexity testing. This test is used for clinical purposes. It should not be regarded as investigational or for research. Performed By: #### P TPTT #### [facility] (DEFAULT) [address] [address] CBC,PLATELETSon 04-26-2024 Erythrocyte distribution width (RBC) [Ratio] 14.5 % High 10.9 - 14.3 % [facility] Hematocrit (Bld) [Volume fraction] 29.4 % Low 39.6 - 48.8 % [facility] Hemoglobin (Bld) [Mass/Vol] 9.3 g/dL Low 13.4 - 16.8 g/dL [facility] Interpretation and review of laboratory results Abnormal [facility] MCH (RBC) [Entitic mass] 24.5 pg Low 26.1 - 33.3 pg [facility] MCHC (RBC) [Mass/Vol] 31.6 g/dL Low 31.9 - 36.5 g/dL [facility] MCV (RBC) [Entitic vol] 77.4 fL Low 79.0 - 94.5 fL [facility] Platelet mean volume (Bld) [Entitic vol] 9.4 fL 8.7 - 12.3 fL [facility] [facility] Plate[facility] (Bld) [#/Vol] 228 10*3/uL 146 - 337 K/uL [facility] RBC (Bld) [#/Vol] 3.80 10*6/uL Low [facility] WBC (Bld) [#/Vol] 18.00 10*3/uL High 3.73 - 10 .10 K/uL [facility] Hematocrit (Bld) [Volume fraction] 29.4 % Low 39.6-48.[address] [facility] Comment on above: Order Comment: Draw lab 8 hours after arrival Performed By: #### A 1CB #### [facility] (DEFAULT) [address] [address] Hemoglobin (Bld) [Mass/Vol] 9.3 g/dL Low 13.4-16.[address] [facility] Comment on above: Order Comment: Draw lab 8 hours after arrival Performed By: #### A 1CB #### [facility] (DEFAULT) [address] [address] MCV (RBC) [Entitic vol] 77.4 fL Low 79.0-94.5 [facility] Comment on above: Order Comment: Draw lab 8 hours after arrival Performed By: #### A 1CB #### [facility] (DEFAULT) [address] [address] Mean Cell Hgb 24.5 pg Low 26.1-33.[address] [facility] Comment on above: Order Comment: Draw lab 8 hours after arrival Performed By: #### A 1CB #### [facility] (DEFAULT) [address] [address] Mean Cell Hgb Conc 31.6 g/dL Low 31.9-36.5 [facility] Comment on above: Order Comment: Draw lab 8 hours after arrival Performed By: #### A 1CB #### [facility] (DEFAULT) [address] [address] Platelet mean volume (Bld) [Entitic vol] 9.4 fL Normal 8.7-12.[address] [facility] Comment on above: Order Comment: Draw lab 8 hours after arrival Performed By: #### A 1CB #### [facility] (DEFAULT) [address] [address] Platelets (Bld) [#/Vol] 228 10*3/uL Normal 146-[address] [facility] Comment on above: Order Comment: Draw lab 8 hours after arrival Performed By: #### A 1CB #### [facility] (DEFAULT) [address] [address] RBC (Bld) [#/Vol] 3.80 10*6/uL Low 4.38-5.[address] [facility] Comment on above: Order Comment: Draw lab 8 hours after arrival Performed By: #### A 1CB #### [facility] (DEFAULT) [address] [address] RBC Distribution 14.5 % High 10.9-14.3 [facility] Comment on above: Order Comment: Draw lab 8 hours after arrival Performed By: #### A 1CB #### [facility] (DEFAULT) [address] [place] [address] WBC (Bld) [#/Vol] 18.00 10*3/uL High 3.73-10.[address] [facility] Comment on above: Order Comment: Draw lab 8 hours after arrival Performed By: #### A 1CB #### [facility] (DEFAULT) [address] [place] [address] Erythrocyte distribution width (RBC) [Ratio] 14.5 % High 10.9 - 14.3 % [facility] Hematocrit (Bld) [Volume fraction] 33.0 % Low 39.6 - 48.8 % [facility] Hemoglobin (Bld) [Mass/Vol] 10.3 g/dL Low 13.4 - 16.8 g/dL [facility] Interpretation and review of laboratory results Abnormal [facility] MCH (RBC) [Entitic mass] 24.3 pg Low 26.1 - 33.3 pg [facility] MCHC (RBC) [Mass/Vol] 31.2 g/dL Low 31.9 - 36.5 g/dL [facility] MCV (RBC) [Entitic vol] 77.8 fL Low 79.0 - 94.5 fL [facility] Platelet mean volume (Bld) [Entitic vol] 9.6 fL 8.7 - 12.3 fL [facility] Platelets (Bld) [#/Vol] 269 10*3/uL 146 - 337 K/uL [facility] RBC (Bld) [#/Vol] 4.24 10*6/uL Low [facility] WBC (Bld) [#/Vol] 26.87 10*3/uL High 3.73 - 10 .10 K/uL [facility] Hematocrit (Bld) [Volume fraction] 33.0 % Low 39.6-48.[address] [facility] Comment on above: Performed By: #### A 1CB #### [facility] (DEFAULT) [address] [place] [address] Hemoglobin (Bld) [Mass/Vol] 10.3 g/dL Low 13.4-16.[address] [facility] Comment on above: Performed By: #### A 1CB #### [facility] (DEFAULT) [address] [place] [address] MCV (RBC) [Entitic vol] 77.8 fL Low 79.0-94.5 [facility] Comment on above: Performed By: #### A 1CB #### [facility] (DEFAULT) [address] [address] Mean Cell Hgb 24.3 pg Low 26.1-33.[address] [facility] Comment on above: Performed By: #### A 1CB #### [facility] (DEFAULT) [address] [place] [address] Mean Cell Hgb Conc 31.2 g/dL Low 31.9-36.5 [facility] Comment on above: Performed By: #### A 1CB #### [facility] (DEFAULT) [address] [place] [address] Platelet mean volume (Bld) [Entitic vol] 9.6 fL Normal 8.7-12.[address] [facility] Comment on above: Performed By: #### A 1CB #### [facility] (DEFAULT) [address] [address] Platelets (Bld) [#/Vol] 269 10*3/uL Normal 146-[address] [facility] Comment on above: Performed By: #### A 1CB #### [facility] (DEFAULT) [address] [address] RBC (Bld) [#/Vol] 4.24 10*6/uL Low 4.38-5.[address] [facility] Comment on above: Performed By: #### A 1CB #### [facility] (DEFAULT) [address] [place] [address] RBC Distribution 14.5 % High 10.9-14.3 [facility] Comment on above: Performed By: #### A 1CB #### [facility] (DEFAULT) [address] [place] [address] WBC (Bld) [#/Vol] 26.87 10*3/uL High 3.73-10.[address] [facility] Comment on above: Performed By: #### A 1CB #### [facility] (DEFAULT) [address] [place] [address] CHEM 7 (LYTES,BUN,CREA,GLUC) on 04-26-2024 Anion gap [Moles/Vol] 14 mmol/L 7 - 17 mmol/L [facility] Chloride [Moles/Vol] 105 mmol/L 98 - 10 8 mmol/L [facility] CO2 [Moles/Vol] 25 mmol/L 21 - 31 mmol/L [facility] Creatinine [Mass/Vol] 0.80 mg/dL 0.70 - 1.30 mg/dL [facility] eGFR, CKD-EPI, Male - PINF [facility] Glucose [Mass/Vol] 155 mg/dL High 70 - 99 mg/dL [facility] Osmolality Calc [Osmolality] 296 [facility] Potassium [Moles/Vol] 4.1 mmol/L 3.5 - 5.0 mmol/L [facility] Sodium [Moles/Vol] 140 mmol/L 135 - 145 mmol/L [facility] Urea nitrogen [Mass/Vol] 11 mg/dL 7 - 25 mg/dL [facility] Urea nitrogen/Creatinine [Mass ratio] 14 mg/mg [facility] Anion gap [Moles/Vol] 14 mmol/L Normal 7-17 [facility] Comment on above: Order Comment: Draw lab 8 hours after arrival Performed By: #### I CA #### [facility] (DEFAULT) [address] [place] [address] Chloride [Moles/Vol] 105 mmol/L Normal 98-[address] [facility] Comment on above: Order Comment: Draw lab 8 hours after arrival Performed By: #### I CA #### [facility] (DEFAULT) [address] [address] CO2 [Moles/Vol] 25 mmol/L Normal 21-31 [facility] Comment on above: Order Comment: Draw lab 8 hours after arrival Performed By: #### I CA #### [facility] (DEFAULT) [address] [place] [address] Creatinine [Mass/Vol] 0.80 mg/dL Normal 0.70-1.30 [facility] Comment on above: Order Comment: Draw lab 8 hours after arrival Performed By: #### I CA #### [facility] (DEFAULT) [address] [address] eGFR, CKD-EPI, Male > Normal >=[address] [facility] Comment on above: Order Comment: Draw lab 8 hours after arrival Result Comment: Repo rted eGFR is based on the CKD-EPI 2020 equation using creatinine, age, and sex. Performed By: #### I CA #### [facility] (DEFAULT) [address] [address] Osmolality [Osmolality] 296 mosm/kg Normal 278-[address] [facility] Comment on above: Order Comment: Draw lab 8 hours after arrival Performed By: #### I CA #### [facility] (DEFAULT) [address] [address] Potassium [Moles/Vol] 4.1 mmol/L Normal 3.5-5.0 [facility] Comment on above: Order Comment: Draw lab 8 hours after arrival Performed By: #### I CA #### [facility] (DEFAULT) [address] [place] [address] Sodium [Moles/Vol] 140 mmol/L Normal 135-145 [facility] Comment on above: Order Comment: Draw lab 8 hours after arrival Performed By: #### I CA #### [facility] (DEFAULT) [address] [place] [address] Urea nitrogen [Mass/Vol] 11 mg/dL Normal 7-[address] [facility] Comment on above: Order Comment: Draw lab 8 hours after arrival Performed By: #### I CA #### [facility] (DEFAULT) [address] [place] [address] Urea nitrogen/Creatinine [Mass ratio] 14 mg/mg Normal [facility] Comment on above: Order Comment: Draw lab 8 hours after arrival Performed By: #### I CA #### [facility] (DEFAULT) [address] [place] [address] Anion gap [Moles/Vol] 17 mmol/L 7 - 17 mmol/L [facility] Chloride [Moles/Vol] 102 mmol/L 98 - 10 8 mmol/L [facility] CO2 [Moles/Vol] 23 mmol/L 21 - 31 mmol/L [facility] Creatinine [Mass/Vol] 1.04 mg/dL 0.70 - 1.30 mg/dL [facility] eGFR, CKD-EPI, Male 86 - PINF [facility] Glucose [Mass/Vol] 172 mg/dL High 70 - 99 mg/dL [facility] Osmolality Calc [Osmolality] 292 [facility] Potassium [Moles/Vol] 3.6 mmol/L 3.5 - 5.0 mmol/L [facility] Sodium [Moles/Vol] 138 mmol/L 135 - 145 mmol/L [facility] Urea nitrogen [Mass/Vol] 10 mg/dL 7 - 25 mg/dL [facility] Urea nitrogen/Creatinine [Mass ratio] 10 mg/mg [facility] Anion gap [Moles/Vol] 17 mmol/L Normal 7-17 [facility] Comment on above: Performed By: #### X M #### [facility] (DEFAULT) [address] [place] [address] Chloride [Moles/Vol] 102 mmol/L Normal 98-[address] [facility] Comment on above: Performed By: #### X M #### [facility] (DEFAULT) [address] [place] [address] CO2 [Moles/Vol] 23 mmol/L Normal 21-31 [facility] Comment on above: Performed By: #### X M #### [facility] (DEFAULT) [address] [place] [address] Creatinine [Mass/Vol] 1.04 mg/dL Normal 0.70-1.30 [facility] Comment on above: Performed By: #### X M #### [facility] (DEFAULT) [address] [place] [address] GFR/1.73 sq M.predicted among non-blacks MDRD (S/P/Bld) [Vol rate/Area] 86 mL/min/{1.73_m2} Normal >=[address] [facility] Comment on above: Result Comment: Repo rted eGFR is based on the CKD-EPI 2020 equation using creatinine, age, and sex. Performed By: #### X M #### [facility] (DEFAULT) [address] [place] [address] Glucose [Mass/Vol] 172 mg/dL High 70-99 [facility] Comment on above: Performed By: #### X M #### [facility] (DEFAULT) [address] [place] [address] Osmolality [Osmolality] 292 mosm/kg Normal 278-[address] [facility] Comment on above: Performed By: #### X M #### [facility] (DEFAULT) [address] [place] [address] Potassium [Moles/Vol] 3.6 mmol/L Normal 3.5-5.0 [facility] Comment on above: Performed By: #### X M #### [facility] (DEFAULT) [address] [place] [address] Sodium [Moles/Vol] 138 mmol/L Normal 135-145 [place] [facility] Comment on above: Performed By: #### X M #### [facility] (DEFAULT) [address] [place] [address] Urea nitrogen [Mass/Vol] 10 mg/dL Normal 7-[address] [facility] Comment on above: Performed By: #### X M #### [facility] (DEFAULT) [address] [place] [address] Urea nitrogen/Creatinine [Mass ratio] 10 mg/mg Normal [facility] Comment on above: Performed By: #### X M #### [facility] (DEFAULT) [address] [place] [address] FIBRINOGEN, CLOTTABLEon Fibrinogen Coag (PPP) [Mass/Vol] 193 mg/dL Low 220 - 410 mg/dL [facility] Interpretation and review of laboratory results Abnormal [facility] Fibrinogen-Clottable 193 mg/dL Low 220-[address] [facility] Comment on above: Result Comment: Func tional Fibrinogen (activity) levels can be affected by direct thrombin inhibitors such as heparins (>2.0 IU/ml) and dabigatran. Abnormal results should be interpreted with caution. Performed By: #### A 1CB #### [facility] (DEFAULT) [address] [place] [address] GLUCOSE POCon 04-26-2024 Glucose [Mass/Vol] 167 mg/dL High 70 - 99 mg/dL [facility] Glucose [Mass/Vol] 157 mg/dL High 70 - 99 mg/dL [facility] Glucose [Mass/Vol] 152 mg/dL High 70 - 99 mg/dL [facility] POC Sample Type ARTER [facility] Glucose [Mass/Vol] 170 mg/dL High 70 - 99 mg/dL [facility] Glucose [Mass/Vol] 156 mg/dL High 70 - 99 mg/dL [facility] Glucose [Mass/Vol] 168 mg/dL High 70 - 99 mg/dL [facility] Interpretation and review of laboratory results Abnormal [facility] POC Sample Type ARTER [facility] Glucose [Mass/Vol] 180 mg/dL High 70 - 99 mg/dL [facility] Interpretation and review of laboratory results Abnormal [facility] POC Sample Type ARTER [facility] Glucose [Mass/Vol] 196 mg/dL High 70 - 99 mg/dL [facility] Interpretation and review of laboratory results Abnormal [facility] POC Sample Type VENO [facility] IONIZED CALCIUM, WHOLE BLOOD Ordered By: Kathe Gonzalez on 04-26-2024 Calcium.ionized (Bld) [Moles/Vol] 4.63 mg/dL 4.60 - 5.30 mg/dL [facility] Interpretation and review of laboratory results Normal [facility] IONIZED CALCIUM, WHOLE BLOOD on 04-26-2024 ICA 4.63 mg/dL Normal 4.60-5.[address] [facility] Comment on above: Order Comment: Draw lab 8 hours after arrival Performed By: #### I CA #### [facility] (DEFAULT) [address] [place] [address] ICA 4.46 mg/dL Low 4.60-5.[address] [facility] Comment on above: Performed By: #### I CA #### [facility] (DEFAULT) [address] [address] IONIZED CALCIUM, WHOLE BLOOD Ordered By: Renetta Ribera on 04-26-2024 Calcium.ionized (Bld) [Moles/Vol] 4.46 mg/dL Low 4.60 - 5.30 mg/dL [facility] Interpretation and review of laboratory results Abnormal [facility] MAGNESIUMon 04-26-2024 Magnesium [Mass/Vol] 2.9 mg/dL High 1.6 - 2 .6 mg/dL [facility] Magnesium [Mass/Vol] 2.9 mg/dL High 1.6-2.[address] [facility] Comment on above: Order Comment: Draw lab 8 hours after arrival Performed By: #### I CA #### [facility] (DEFAULT) [address] [place] [address] Magnesium [Mass/Vol] 3.3 mg/dL High 1.6 - 2 .6 mg/dL [facility] Magnesium [Mass/Vol] 3.3 mg/dL High 1.6-2.[address] [facility] Comment on above: Performed By: #### I CA #### [facility] (DEFAULT) [address] [place] [address] No Panel Informationon 04-26 ABO/RH(D) TYPE Negative [facility] BLOOD COMPONENT TYPE Red Cells, Leukoreduced [facility] Product ABO/RH(D) Negative [facility] Product ABO/RH(D) NUMBER 9500 [facility] PRODUCT CODE [id number] [facility] UNIT STATUS released [facility] Interpretation and review of laboratory results Abnormal [facility] POC Sample Type CAPBL [facility] Interpretation and review of laboratory results Abnormal [facility] Interpretation and review of laboratory results Abnormal [facility] POC Sample Type ARTER [facility] Interpretation and review of laboratory results Abnormal [facility] PHOSPHATE, INORGANICon 04-26 Interpretation and review of laboratory results Normal [facility] Phosphate [Mass/Vol] 3.3 mg/dL 2.2 - 4 .6 mg/dL [facility] Phosphorous 3.3 mg/dL Normal 2.2-4.[address] [facility] Comment on above: Performed By: #### X M #### [facility] (DEFAULT) [address] [place] [address] POC ARTERIAL BLOOD GASon Base excess Calc (Bld) [Moles/Vol] -3.4000 mmol/L Low -3.0 - 3.0 mmol/L [facility] Calcium.ionized (Bld) [Mass/Vol] 4.80 mg/dL 4.60 - 5.30 mg/dL [facility] CO2 (Bld) [Partial pressure] 44 mm[Hg] [facility] Glucose [Mass/Vol] 164 mg/dL High 70 - 99 mg/dL [facility] HCO3 (Bld) [Moles/Vol] 23 mmol/L 22 - 28 mmol/L [facility] Hematocrit (Bld) [Volume fraction] 32 % Low 40 - 50 % [facility] Hemoglobin (Bld) [Mass/Vol] 10.5 g/dL Low 13.4 - 16.8 g/dL [facility] Interpretation and review of laboratory results Abnormal [facility] Lactate [Moles/Vol] 4.0 mmol/L High 0.5 - 1. 6 mmol/L [facility] Oxygen (Bld) [Partial pressure] 103 mm[Hg] [facility] Oxygen saturation in Blood 97 % 94 - 98 % [facility] pH (Bld) 7.32 [pH] Low 7.35 - 7.45 [facility] Potassium [Moles/Vol] 3.8 mmol/L 3.5 - 5.0 mmol/L [facility] Sodium [Moles/Vol] 134 mmol/L Low 135 - 145 mmol/L [facility] Specimen source Nom (Unsp spec) Arterial [facility] Base excess Calc (Bld) [Moles/Vol] -2.1000 mmol/L -3.0 - 3.0 mmol/L [facility] Calcium.ionized (Bld) [Mass/Vol] 5.05 mg/dL 4.60 - 5.30 mg/dL [facility] CO2 (Bld) [Partial pressure] 48 mm[Hg] [facility] Glucose [Mass/Vol] 168 mg/dL High 70 - 99 mg/dL [facility] HCO3 (Bld) [Moles/Vol] 24 mmol/L 22 - 28 mmol/L [facility] Hematocrit (Bld) [Volume fraction] 31 % Low 40 - 50 % [facility] Hemoglobin (Bld) [Mass/Vol] 10.2 g/dL Low 13.4 - 16.8 g/dL [facility] Interpretation and review of laboratory results Abnormal [facility] Lactate [Moles/Vol] 3.7 mmol/L High 0.5 - 1. 6 mmol/L [facility] Oxygen (Bld) [Partial pressure] 365 mm[Hg] High [facility] Oxygen saturation in Blood 97 % 94 - 98 % [facility] pH (Bld) 7.31 [pH] Low 7.35 - 7.45 [facility] Potassium [Moles/Vol] 3.9 mmol/L 3.5 - 5.0 mmol/L [facility] Sodium [Moles/Vol] 133 mmol/L Low 135 - 145 mmol/L [facility] Specimen source Nom (Unsp spec) Arterial [facility] Base excess Calc (Bld) [Moles/Vol] 0.1 mmol/L -3.0 - 3.0 mmol/L [facility] Calcium.ionized (Bld) [Mass/Vol] 4.26 mg/dL Low 4.60 - 5.30 mg/dL [facility] CO2 (Bld) [Partial pressure] 48 mm[Hg] [facility] Glucose [Mass/Vol] 195 mg/dL High 70 - 99 mg/dL [facility] HCO3 (Bld) [Moles/Vol] 26 mmol/L 22 - 28 mmol/L [facility] Hematocrit (Bld) [Volume fraction] 30 % Low 40 - 50 % [facility] Hemoglobin (Bld) [Mass/Vol] 10.0 g/dL Low 13.4 - 16.8 g/dL [facility] Interpretation and review of laboratory results Abnormal [facility] Lactate [Moles/Vol] 3.1 mmol/L High 0.5 - 1. 6 mmol/L [facility] Oxygen (Bld) [Partial pressure] 310 mm[Hg] High [facility] Oxygen saturation in Blood 97 % 94 - 98 % [facility] pH (Bld) 7.34 [pH] Low 7.35 - 7.45 [facility] Potassium [Moles/Vol] 4.7 mmol/L 3.5 - 5.0 mmol/L [facility] Sodium [Moles/Vol] 132 mmol/L Low 135 - 145 mmol/L [facility] Specimen source Nom (Unsp spec) Arterial [facility] Base excess Calc (Bld) [Moles/Vol] -0.2000 mmol/L -3.0 - 3.0 mmol/L [facility] Calcium.ionized (Bld) [Mass/Vol] 4.28 mg/dL Low 4.60 - 5.30 mg/dL [facility] CO2 (Bld) [Partial pressure] 55 mm[Hg] High [facility] Glucose [Mass/Vol] 182 mg/dL High 70 - 99 mg/dL [facility] HCO3 (Bld) [Moles/Vol] 26 mmol/L 22 - 28 mmol/L [facility] Hematocrit (Bld) [Volume fraction] 31 % Low 40 - 50 % [facility] Hemoglobin (Bld) [Mass/Vol] 10.3 g/dL Low 13.4 - 16.8 g/dL [facility] Interpretation and review of laboratory results Abnormal [facility] Lactate [Moles/Vol] 2.6 mmol/L High 0.5 - 1. 6 mmol/L [facility] Oxygen (Bld) [Partial pressure] 499 mm[Hg] High [facility] Oxygen saturation in Blood 97 % 94 - 98 % [facility] pH (Bld) 7.29 [pH] Low 7.35 - 7.45 [facility] Potassium [Moles/Vol] 4.0 mmol/L 3.5 - 5.0 mmol/L [facility] Sodium [Moles/Vol] 134 mmol/L Low 135 - 145 mmol/L [facility] Specimen source Nom (Unsp spec) Arterial [facility] Base excess Calc (Bld) [Moles/Vol] -2.6000 mmol/L -3.0 - 3.0 mmol/L [facility] Calcium.ionized (Bld) [Mass/Vol] 4.43 mg/dL Low 4.60 - 5.30 mg/dL [facility] CO2 (Bld) [Partial pressure] 53 mm[Hg] High [facility] Glucose [Mass/Vol] 185 mg/dL High 70 - 99 mg/dL [facility] HCO3 (Bld) [Moles/Vol] 24 mmol/L 22 - 28 mmol/L [facility] Hematocrit (Bld) [Volume fraction] 35 % Low 40 - 50 % [facility] Hemoglobin (Bld) [Mass/Vol] 11.8 g/dL Low 13.4 - 16.8 g/dL [facility] Interpretation and review of laboratory results Abnormal [facility] Lactate [Moles/Vol] 2.1 mmol/L High 0.5 - 1. 6 mmol/L [facility] Oxygen (Bld) [Partial pressure] 248 mm[Hg] High [facility] Oxygen saturation in Blood 98 % 94 - 98 % [facility] pH (Bld) 7.27 [pH] Low 7.35 - 7.45 [facility] Potassium [Moles/Vol] 3.5 mmol/L 3.5 - 5.0 mmol/L [facility] Sodium [Moles/Vol] 132 mmol/L Low 135 - 145 mmol/L [facility] Specimen source Nom (Unsp spec) Arterial [facility] Base excess Calc (Bld) [Moles/Vol] -1.9000 mmol/L -3.0 - 3.0 mmol/L [facility] Calcium.ionized (Bld) [Mass/Vol] 4.67 mg/dL 4.60 - 5.30 mg/dL [facility] CO2 (Bld) [Partial pressure] 65 mm[Hg] [facility] Glucose [Mass/Vol] 218 mg/dL High 70 - 99 mg/dL [facility] HCO3 (Bld) [Moles/Vol] 26 mmol/L 22 - 28 mmol/L [facility] Hematocrit (Bld) [Volume fraction] 39 % Low 40 - 50 % [facility] Hemoglobin (Bld) [Mass/Vol] 12.9 g/dL Low 13.4 - 16.8 g/dL [facility] Interpretation and review of laboratory results Abnormal [facility] Lactate [Moles/Vol] 2.5 mmol/L High 0.5 - 1. 6 mmol/L [facility] Oxygen (Bld) [Partial pressure] 287 mm[Hg] High [facility] Oxygen saturation in Blood 97 % 94 - 98 % [facility] pH (Bld) 7.21 [pH] Low 7.35 - 7.45 [facility] Potassium [Moles/Vol] 3.7 mmol/L 3.5 - 5.0 mmol/L [facility] Sodium [Moles/Vol] 133 mmol/L Low 135 - 145 mmol/L [facility] Specimen source Nom (Unsp spec) [facility] Calc (Bld) [Moles/Vol] 0.7 mmol/L -3.0 - 3.0 mmol/L [facility] Calcium.ionized (Bld) [Mass/Vol] 4.71 mg/dL 4.60 - 5.30 mg/dL [facility] CO2 (Bld) [Partial pressure] 45 mm[Hg] [facility] Glucose [Mass/Vol] 205 mg/dL High 70 - 99 mg/dL [facility] HCO3 (Bld) [Moles/Vol] 26 mmol/L 22 - 28 mmol/L [facility] Hematocrit (Bld) [Volume fraction] 40 % 40 - 50 % [facility] Hemoglobin (Bld) [Mass/Vol] 13.3 g/dL Low 13.4 - 16.8 g/dL [facility] Interpretation and review of laboratory results Abnormal [facility] Lactate [Moles/Vol] 2.8 mmol/L High 0.5 - 1. 6 mmol/L [facility] Oxygen (Bld) [Partial pressure] 379 mm[Hg] High [facility] Oxygen saturation in Blood 97 % 94 - 98 % [facility] pH (Bld) 7.37 [pH] 7.35 - 7.45 [facility] Potassium [Moles/Vol] 3.6 mmol/L 3.5 - 5.0 mmol/L [facility] Sodium [Moles/Vol] 133 mmol/L Low 135 - 145 mmol/L [facility] Specimen source Nom (Unsp spec) Arterial [facility] PREPARE TO TRANSFUSE OR RED BLOOD CELLSon 04-26-2024 EXPIRATION DATE [facility] EXPIRATION DATE [facility] UNIT NUMBER [id number] [facility] UNIT NUMBER [id number] [facility] PT,INR,PTTon 04-26-2024 aPTT Coag (PPP) [Time] 49.3 s High [facility] INR Coag (Bld) [Relative time] 1.3 {INR} High 0.9 - 1.1 [facility] Interpretation and review of laboratory results Abnormal [facility] PT Coag (PPP) [Time] 16.0 s High [facility] aPTT Coag (Bld) [Time] 49.3 s High 24.0-34.3 [facility] Comment on above: Performed By: #### A 1CB #### [facility] (DEFAULT) [address] [place] [address] INR Coag (PPP) [Relative time] 1.3 {INR} High 0.9-1.[address] [facility] Comment on above: Performed By: #### A 1CB #### [facility] (DEFAULT) [address] [place] [address] PT Coag (PPP) [Time] 16.0 s High 11.9-14.[address] [facility] Comment on above: Performed By: #### A 1CB #### [facility] (DEFAULT) [address] [place] [address] Portable XR Chest Viewson RADIOLOGY RADIOLOGY [facility] Radiology Study observation (narrative) [facility] Portable XR Chest ViewsOrder ed By: Eros Pickens on 04-26-2024 [facility] Work Phone: SURG PATH REQUESTon 04-26-20 Case Report [facility] Comment on above: Result Comment: Surg ical Pathology Report Case: [id number] Authorizing Provider: Jacky Meyer MD, PhD Collected: 04/26/2024 10:10 AM Ordering Location: [place] PERIOP Received: 04/26/2024 03:12 PM Pathologist: Leonid Otto MD Specimen: SURG PATH, Left atrial appendage Performed By: #### S URGP #### [facility] (DEFAULT) [address] [place] [address] Clinical History Preop Diagnosis: Coronary artery disease of la posta coronary artery. Medical History: Hyperlipidemia. Stroke. Essential hypertension. Coronary artery disease. Diabetes mellitus. Normal [facility] Comment on above: Performed By: #### S URGP #### [facility] (DEFAULT) [address] [place] [address] 005[address] Gross Description Normal [facility] Comment on above: Result Comment: The specimen is received in one properly labeled container with the patient's name and accession number. A. The specimen is designated left atrial appendage and consists of a 2.8 x 2.0 x 1.0 cm wedge-shaped portion of excised bunch-mahoney soft tissue grossly consistent with that of an atrial appendage which has one intact attached staple line. The epicardium is pale bunch-mahoney, smooth, and there is minimal attached adipose tissue. The staple line is removed revealing a moderate amount of dark purple internal clotted blood but sectioning reveals otherwise bunch-mahoney, striated unremarkable myocardium and a white-bunch smooth endocardium. The specimen is otherwise unremarkable. RS 1 Cassettes: A1, left atrial appendage Lab Use Only: JobID [id number] Grosser for this case was: Rivka Pavon Performed By: #### S URGP #### [facility] (DEFAULT) [address] [place] [address] Microscopic Description A microscopic examination was performed. [facility] Comment on above: Performed By: #### S URGP #### [facility] (DEFAULT) [address] [place] [address] Pathologic Diagnosis [facility] Comment on above: Result Comment: A. L eft atrial appendage, coronary artery bypass graft: Atrial tissue with subendocardial fibrosis and myocyte hyperplasia. Performed By: #### S URGP #### [facility] (DEFAULT) [address] [address] Professional Interpretation Performed at: [facility] Comment on above: Result Comment: [facility] For Immediate Release [facility] Yes [address] [place] [address] Performed By: #### S URGP #### [facility] (DEFAULT) [address] [address] XR ABDOMEN 1 VIEW PORTABLEon 04-26-2024 XR ABDOMEN 1 VIEW PORTABLE EXAM: XR ABDOMEN 1 VIEW PORTABLE, 04/26/2024 13:07 PM COMPARISON: No prior abdominal radiographs available for comparison. CLINICAL INDICATIONS: post operative heart surgery Upon arrival to unit; FINDINGS: Tubes: Enteric tube extends from the thorax terminating near the gastroesophageal junction. Partially visualized central venous catheter overlying the superior vena cava. Additional tubes and lines overlie the upper abdomen and lower thorax. Bowel gas pattern: Visualized bowel is nondilated. No visible free air. Abnormal calcifications/Radiopa cities: None. Bones: No acute abnormality. Other findings: None. IMPRESSION: Enteric tube terminates near the gastroesophageal junction. Recommend advancement so 5 10 cm. Normal [facility] XR Abdomen Single viewon RADIOLOGY RADIOLOGY [facility] Radiology Study observation (narrative) [facility] XR Abdomen Single viewOrdere d By: Shanelle Madrigal on 04-26-2024 [facility] Work Phone: XR CHEST 1 VIEW PORTABLEon 1 06-27-2023 XR CHEST 1 VIEW PORTABLE EXAM: XR CHEST 1 VIEW PORTABLE, 04/26/2024 13:08 PM COMPARISON: CT CHEST WITHOUT CONTRAST April 20, 2024 CLINICAL INDICATIONS: postop heart surgery RELEVANT CLINICAL HISTORY: On arrival to unit.; FINDINGS: (Adequate technique) Implanted Devices: Endotracheal tube with tip terminating 2.5 cm above the charlie,. Right IJ CVC with tip terminating at mid SVC. Left hemithorax thoracostomy tube extends to the mid lung field. Midline mediastinal thoracostomy tube. Left mediastinal thoracostomy tube. Sternotomy wires appear intact and aligned. Pacer wires. Nasogastric tube with side-port just above the GE junction. Thorax: Lungs are under aerated bilaterally with volume loss and bibasilar atelectasis. No focal consolidation. No definitive pneumothorax. No pleural effusion. Upper normal heart size. No pulmonary edema. Minimal degenerative change of the thoracic spine. IMPRESSION: Bilateral lung volume loss. Atelectasis. No pneumothorax. No pleural effusion. I personally viewed and interpreted these images and I have reviewed and approved this report. Normal [facility] CT CHEST WITHOUT CONTRASTon 04-25-2024 CT CHEST WITHOUT CONTRAST EXAM: CT CHEST WITHOUT CONTRAST, 04/20/2024 14:00 PM COMPARISON: No Available Comparisons. CLINICAL INDICATIONS: pre-operative planning for CABG RELEVANT CLINICAL HISTORY: I25.10:Coronary artery disease involving la 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 TECHNIQUE: CT images of the chest were obtained without intravenous contrast. FINDINGS: Lungs and Pleura: The lungs are clear. No nodule. No consolidation. No pleural fluid. Tracheobronchial tree: No abnormality. Mediastinum/Eulalia: No mediastinal or hilar lymphadenopathy. Axilla and Supraclavicular Regions: No axillary or supraclavicular adenopathy. Cardiovascular: The cardiac chambers are within normal limits. An atrial septal closure device is present. Multivessel calcified coronary artery disease. The pericardium is normal. The aorta and its arch branch vessels are unremarkable. The pulmonary arteries are also unremarkable. Upper Abdomen: The upper abdominal contents are unremarkable. Bones and Soft Tissue: S-shaped scoliotic curvature of the thoracic spine with associated degenerative changes. No suspicious osseous lesions. IMPRESSION: 1. No acute cardiopulmonary findings. 2. Multivessel calcified coronary artery disease with an atrial septal closure device. I personally viewed and interpreted these images and I have reviewed and approved this report. Normal [facility] No Panel InformationOrdered By: Akiko Ge on 04-20-2024 [facility] Work Phone: US.doppler Carotid arteries - bilateralon 04-20-2024 Radiology Study observation (narrative) [facility] US.doppler Hand vesselsOrder ed By: Akiko Ge on 04-20-2024 [facility] Work Phone: US.doppler Hand vesselson Radiology Study observation (narrative) [facility] US.doppler Lower extremity v ein - bilateralOrdered By: Akiko Ge on 04-20-2024 [facility] Work Phone: US.doppler Lower extremity v ein - bilateralon 04-20-2024 Radiology Study observation (narrative) [facility] US.doppler Upper extremity a rtery - lefton 04-20-2024 Radiology Study observation (narrative) [facility] CALCIUMon 04-05-2024 Calcium [Mass/Vol] 9.7 mg/dL Normal 8.6-10.5 [facility] Comment on above: Performed By: #### U [id number] #### [facility] (DEFAULT) [address] [place] [address] CBC AND ELECTRONIC DIFFon Abs Baso Auto < Normal 0.00-0.[address] [facility] Comment on above: Performed By: #### X M #### [facility] (DEFAULT) [address] [place] [address] 23083 Abs Eos Auto < Normal 0.00-0.[address] [facility] Comment on above: Performed By: #### X M #### [facility] (DEFAULT) [address] [place] [address] 99822 Basophils/100 WBC (Bld) 0.3 % Normal [facility] Comment on above: Performed By: #### X M #### [facility] (DEFAULT) [address] [place] [address] 82949 DIFF STATUS Electronic Differential Normal [facility] Comment on above: Performed By: #### X M #### [facility] (DEFAULT) [address] [place] [address]287 Eosinophils/100 WBC (Bld) 0.3 % Normal [facility] Comment on above: Performed By: #### X M #### [facility] (DEFAULT) [address] [place] [address] Hematocrit (Bld) [Volume fraction] 42.4 % Normal 39.6-48.[address] [facility] Comment on above: Performed By: #### X M #### [facility] (DEFAULT) [address] [place] [address] Hemoglobin (Bld) [Mass/Vol] 13.4 g/dL Normal 13.4-16.[address] [facility] Comment on above: Performed By: #### X M #### [facility] (DEFAULT) [address] [address] Immature Grans % 0.7 % Normal [facility] Comment on above: Performed By: #### X M #### [facility] (DEFAULT) [address] [address] Immature Grans Absolute 0.06 K/uL Normal <=0.07 [facility] Comment on above: Performed By: #### X M #### [facility] (DEFAULT) [address] [address] Lymphocytes (Bld) [#/Vol] 1.47 10*3/uL Normal 0.83-3.[address] [facility] Comment on above: Performed By: #### X M #### [facility] (DEFAULT) [address] [address] Lymphocytes/100 WBC (Bld) 16.4 % Normal [facility] Comment on above: Performed By: #### X M #### [facility] (DEFAULT) [address] [address] MCV (RBC) [Entitic vol] 77.5 fL Low 79.0-94.5 [facility] Comment on above: Performed By: #### X M #### [facility] (DEFAULT) [address] [address] Mean Cell Hgb 24.5 pg Low 26.1-33.[address] [facility] Comment on above: Performed By: #### X M #### [facility] (DEFAULT) [address] [address] Mean Cell Hgb Conc 31.6 g/dL Low 31.9-36.5 [facility] Comment on above: Performed By: #### X M #### [facility] (DEFAULT) [address] [address] Monocytes (Bld) [#/Vol] 0.60 10*3/uL Normal 0.24-0.[address] [facility] Comment on above: Performed By: #### X M #### [facility] (DEFAULT) [address] [place] [address] 54066 Monocytes/100 WBC (Bld) 6.7 % Normal [facility] Comment on above: Performed By: #### X M #### [facility] (DEFAULT) [address] [place] [address] 53348 Nucleated RBC 0.0 /100 WBC Normal <=0.2 [facility] Comment on above: Performed By: #### X M #### [facility] (DEFAULT) [address] [place] [address] 087[address] Platelet mean volume (Bld) [Entitic vol] 9.7 fL Normal 8.7-12.[address] [facility] Comment on above: Performed By: #### X M #### [facility] (DEFAULT) [address] [address] Platelets (Bld) [#/Vol] 367 10*3/uL High 146-[address] [facility] Comment on above: Performed By: #### X M #### [facility] (DEFAULT) [address] [address] RBC (Bld) [#/Vol] 5.47 10*6/uL Normal 4.38-5.[address] [facility] Comment on above: Performed By: #### X M #### [facility] (DEFAULT) [address] [place] [address]286 RBC Distribution 14.7 % High 10.9-14.3 [facility] Comment on above: Performed By: #### X M #### [facility] (DEFAULT) [address] [address] Segs + Bands Auto 75.6 % Normal [facility] Comment on above: Performed By: #### X M #### [facility] (DEFAULT) [address] [place] [address] Segs + Bands,Absolute Auto 6.76 K/uL High 1.57-6.[address] [facility] Comment on above: Performed By: #### X M #### [facility] (DEFAULT) [address] [place] [address] WBC (Bld) [#/Vol] 8.95 10*3/uL Normal 3.73-10.[address] [facility] Comment on above: Performed By: #### X M #### [facility] (DEFAULT) [address] [place] [address] CHEM 7 (LYTES,BUN,CREA,GLUC) on 04-05-2024 Anion gap [Moles/Vol] 16 mmol/L Normal 7-17 [facility] Comment on above: Performed By: #### U [id number] #### [facility] (DEFAULT) [address] [place] [address] 38668 Chloride [Moles/Vol] 100 mmol/L Normal 98-[address] [facility] Comment on above: Performed By: #### U [id number] #### [facility] (DEFAULT) [address] [place] [address] 33865 CO2 [Moles/Vol] 24 mmol/L Normal 21-31 [facility] Comment on above: Performed By: #### U [id number] #### [facility] (DEFAULT) [address] [place] [address] Creatinine [Mass/Vol] 0.60 mg/dL Low 0.70-1.30 [facility] Comment on above: Performed By: #### U [id number] #### [facility] (DEFAULT) [address] [place] [address] eGFR, CKD-EPI, Male > Normal >=[address] [facility] Comment on above: Result Comment: Repo rted eGFR is based on the CKD-EPI 2020 equation using creatinine, age, and sex. Performed By: #### U [id number] #### [facility] (DEFAULT) [address] [place] [address] Glucose [Mass/Vol] 126 mg/dL High 70-99 [facility] Comment on above: Performed By: #### U [id number] #### [facility] (DEFAULT) [address] [place] [address] 01122 Osmolality [Osmolality] 286 mosm/kg Normal 278-[address] [facility] Comment on above: Performed By: #### U [id number] #### [facility] (DEFAULT) [address] [place] [address] Potassium [Moles/Vol] 4.0 mmol/L Normal 3.5-5.0 [facility] Comment on above: Performed By: #### U [id number] #### [facility] (DEFAULT) [address] [place] [address] Sodium [Moles/Vol] 136 mmol/L Normal 135-145 [facility] Comment on above: Performed By: #### U [id number] #### [facility] (DEFAULT) [address] [place] [address] 87967 Urea nitrogen [Mass/Vol] 11 mg/dL Normal 7-[address] [facility] Comment on above: Performed By: #### U [id number] #### [facility] (DEFAULT) [address] [place] [address]1744 Urea nitrogen/Creatinine [Mass ratio] 18 mg/mg Normal [facility] Comment on above: Performed By: #### U [id number] #### [facility] (DEFAULT) [address] [place] [address] FERRITINon 04-05-2024 Ferritin [Mass/Vol] 88.2 ng/mL Normal 10.5-307.[address] [facility] Comment on above: Performed By: #### I CA #### [facility] (DEFAULT) [address] [place] [address] FIBRINOGEN, CLOTTABLEon 11-1 2-2024 Fibrinogen-Clottable 319 mg/dL Normal 220-[address] [facility] Comment on above: Result Comment: Func tional Fibrinogen (activity) levels can be affected by direct thrombin inhibitors such as heparins (>2.0 IU/ml) and dabigatran. Abnormal results should be interpreted with caution. Performed By: #### I CA #### [facility] (DEFAULT) [address] [address] FOLATE, SERUMon 04-05-2024 Folate 22.11 ng/mL Normal >5.[address] [facility] Comment on above: Performed By: #### A 1CB #### [facility] (DEFAULT) [address] [address] HEMOGLOBIN A1Con 04-05-2024 Glucose [Mass/Vol] 169 mg/dL Normal [facility] Comment on above: Performed By: #### A 1CB #### [facility] (DEFAULT) [address] [address] Hemoglobin A1C HPLC 7.5 % High 4.7-5.[address] [facility] Comment on above: Performed By: #### A 1CB #### [facility] (DEFAULT) [address] [address] HEPATIC FUNCTION PANELon Albumin [Mass/Vol] 4.6 g/dL Normal 3.5-5.0 [facility] Comment on above: Performed By: #### U [id number] #### [facility] (DEFAULT) [address] [address] ALP [Catalytic activity/Vol] 55 U/L Normal 32-[address] [facility] Comment on above: Performed By: #### U [id number] #### [facility] (DEFAULT) [address] [address] ALT [Catalytic activity/Vol] 19 U/L Normal 10-[address] [facility] Comment on above: Performed By: #### U [id number] #### [facility] (DEFAULT) [address] [address] AST [Catalytic activity/Vol] 16 U/L Normal 10-[address] [facility] Comment on above: Performed By: #### U [id number] #### [facility] (DEFAULT) [address] [place] [address] Bilirubin [Mass/Vol] 0.5 mg/dL Normal <1.[address] [facility] Comment on above: Performed By: #### U [id number] #### [facility] (DEFAULT) [address] [place] [address] Bilirubin.indirect [Mass/Vol] 0.1 mg/dL Normal <0.[address] [facility] Comment on above: Performed By: #### U [id number] #### [facility] (DEFAULT) [address] [place] [address] Protein [Mass/Vol] 7.7 g/dL Normal 6.4-8.3 [facility] Comment on above: Performed By: #### U [id number] #### [facility] (DEFAULT) [address] [place] [address] IRON/IRON BINDING/TRANSFERRI Non 04-05-2024 Iron [Mass/Vol] 96 ug/dL Normal 40-174 [facility] Comment on above: Performed By: #### S URGP #### [facility] (DEFAULT) [address] [place] [address]473 Iron Saturation 25 % Normal 20-55 [facility] Comment on above: Performed By: #### S URGP #### [facility] (DEFAULT) [address] [place] [address] 10597 Total Iron Binding Capacity 386 mcg/dL Normal 250-[address] [facility] Comment on above: Performed By: #### S URGP #### [facility] (DEFAULT) [address] [place] [address] Transferrin [Mass/Vol] 309 mg/dL Normal 200-400 [facility] Comment on above: Performed By: #### S URGP #### [facility] (DEFAULT) [address] [place] [address]556 LIPID PANEL W CALCULATED LDL on 04-05-2024 Calculated LDL Cholesterol 110 mg/dL High 0-[address] [facility] Comment on above: Result Comment: [<10 0 mg/dL: Optimal] [100-129 mg/dL: Near Optimal] [130-159 mg/dL: Borderline High] [160-189 mg/dL: High] [>189 mg/dL: Very High] Performed By: #### S URGP #### [facility] (DEFAULT) [address] [place] [address] Cholesterol [Mass/Vol] 185 mg/dL Normal <200 [facility] Comment on above: Result Comment: [<20 0 mg/dL: Desirable] [200-239 mg/dL: Borderline High] [>239 mg/dL: High] Performed By: #### S URGP #### [facility] (DEFAULT) [address] [place] [address] Cholesterol in HDL [Mass/Vol] 41 mg/dL Normal >=[address] [facility] Comment on above: Result Comment: [<40 mg/dL: Low (High Risk)] [>59 mg/dL: High (Low Risk)] Performed By: #### S URGP #### [facility] (DEFAULT) [address] [place] [address]5213 Non HDL Cholesterol 144 mg/dL High <[address] [facility] Comment on above: Performed By: #### S URGP #### [facility] (DEFAULT) [address] [place] [address] 52297 Total Cholesterol/HDL Ratio 4.5 High <4.[address] [facility] Comment on above: Performed By: #### S URGP #### [facility] (DEFAULT) [address] [place] [address] 47878 Triglyceride [Mass/Vol] 170 mg/dL High <150 [facility] Comment on above: Result Comment: [<15 0 mg/dL: Desirable] [150-199 mg/dL: Borderline] [200-499 mg/dL: High] [>500 mg/dL: Very High] Performed By: #### S URGP #### [facility] (DEFAULT) [address] [place] [address] 22586 MAGNESIUMon 04-05-2024 Magnesium [Mass/Vol] 1.6 mg/dL Normal 1.6-2.[address] [facility] Comment on above: Performed By: #### S URGP #### [facility] (DEFAULT) [address] [place] [address] 66440 PHOSPHATE, INORGANICon 04-05 Phosphorous 2.9 mg/dL Normal 2.2-4.[address] [facility] Comment on above: Performed By: #### S URGP #### [facility] (DEFAULT) [address] [place] [address] 67883 PREALBUMINon 04-05-2024 Prealbumin [Mass/Vol] 31 mg/dL Normal 17-34 [facility] Comment on above: Performed By: #### X M #### [facility] (DEFAULT) [address] [place] [address] 33868 PT,INR,PTTon 04-05-2024 aPTT Coag (Bld) [Time] 29.8 s Normal 24.0-34.3 [facility] Comment on above: Performed By: #### I CA #### [facility] (DEFAULT) [address] [place] [address] 40010 INR Coag (PPP) [Relative time] 1.0 {INR} Normal 0.9-1.[address] [facility] Comment on above: Performed By: #### I CA #### [facility] (DEFAULT) [address] [place] [address] 73815 PT Coag (PPP) [Time] 13.0 s Normal 11.9-14.[address] [facility] Comment on above: Performed By: #### I CA #### [facility] (DEFAULT) [address] [place] [address] 11874 SCREEN: MRSA/MSSAon 04-05-20 24 Methicillin Resistant S. Aureus By Pcr Negative Normal Negative [facility] Comment on above: Order Comment: This test was performed using a real time PCR assay. Results should be interpreted in conjunction with other clinical and laboratory findings. A positive result does not necessarily indicate the presence of viable organism. This test should not be used as a test of cure. For E-swab specimens, this test was developed and its performance characteristics determined by the Clinical Microbiology Laboratory at [facility]. It has not been cleared or approved by the FDA.The laboratory is regulated under CLIA as qualified to perform high-complexity testing. This test is used for clinical purposes. It should not be regarded as investigational or for research. Performed By: #### A 1CB #### [facility] (DEFAULT) [address] [place] [address] 93412 Staphylococcus Aureus By Pcr Positive Abnormal Negative [facility] Comment on above: Order Comment: This test was performed using a real time PCR assay. Results should be interpreted in conjunction with other clinical and laboratory findings. A positive result does not necessarily indicate the presence of viable organism. This test should not be used as a test of cure. For E-swab specimens, this test was developed and its performance characteristics determined by the Clinical Microbiology Laboratory at [facility]. It has not been cleared or approved by the FDA.The laboratory is regulated under CLIA as qualified to perform high-complexity testing. This test is used for clinical purposes. It should not be regarded as investigational or for research. Performed By: #### A 1CB #### [facility] (DEFAULT) [address] [place] [address] 62183 T3 FREEon 04-05-2024 Free T3 [Mass/Vol] 3.2 pg/mL Normal 2.3-4.2 [facility] Comment on above: Performed By: #### I CA #### [facility] (DEFAULT) [address] [place] [address] 10278 T4 FREEon 04-05-2024 Free T4 [Mass/Vol] 1.37 ng/dL Normal 0.89-1.76 [facility] Comment on above: Performed By: #### U [id number] #### [facility] (DEFAULT) [address] [place] [address] 32489 TSHon 04-05-2024 TSH 3.248 uIU/mL Normal 0.550-4.[address] [facility] Comment on above: Performed By: #### U [id number] #### [facility] (DEFAULT) [address] [place] [address] 47672 TYPE AND SCREEN - PREADMISSI ONon 04-05-2024 ABO/RH(D) TYPE Negative Normal [facility] Comment on above: Performed By: #### G ASALL #### [facility] (DEFAULT) [address] [address] Outdate Specimen 04/27/2024 02:24 Normal [facility] Comment on above: Performed By: #### G ASALL #### [facility] (DEFAULT) [address] [place] [address] 50099 VITAMIN B12on 04-05-2024 Cobalamin (Vitamin B12) [Mass/Vol] 348 pg/mL Normal 211-[address] [facility] Comment on above: Result Comment: Test ing of Methylmalonic Acid and Intrinsic Factor Blocking Antibody are recommended if clinical suspicion for pernicious anemia due to B12 deficiency is high for patients with intermediate B12 levels (211 to 400 pg/mL) to rule out spurious heterophile antibodies. 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 2) There is severe disease in the proximal ramus intermedius artery. 3) The remaining coronary arteries have mild/moderate disease as described in detail below. Left Heart Catheterization: 1) The LVEDP is normal at ~ 10 mmHg. 2) Cannot accurately determine LV-Ao gradient on pullback due to ectopy. Recommendations: 1) Evaluation for CABG. Table formatting from the original result was not included. Images from the original result were not included. [facility] Invasive Cardiology Cath Procedure Ordering Physician: JAMAL TURCIOS Order #: [id number] Study Date: 03/29/2024 Patient Information Name MRN Description Antonia Kruger [id number] 53 y.o. male Location Name Address [facility] [address] [facility] [address] Physicians Panel Physicians Referring Physician Case Authorizing Physician Jamal Turcios MD (Primary) MD Jamal Dang MD Awad I Javaid, MD (Fellow) Sophia Ulrich MD (Fellow) CC Referring Recipient Method Contact Information Krista Schmidt MD ? ? Mariano Cee MD ? ? 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 2) There is severe disease in the proximal ramus intermedius artery. 3) The remaining coronary arteries have mild/moderate disease as described in detail below. Left Heart Catheterization: 1) The LVEDP is normal at ~ 10 mmHg. 2) Cannot accurately determine LV-Ao gradient on pullback due to ectopy. Recommendations: 1) Evaluation for CABG. Medical History Diagnosis Date Comment Source Diabetes mellitus Essential hypertension, benign Hyperlipidemia Stroke Medical History - Pertinent Negatives Pertinent Negative Date Comment Source [facility] (myocardial infarction) 09/11/2022 Procedure The risks and alternatives of the procedure and sedation were explained. Informed consent was obtained. The patient was brought to the mobile home laborer and placed on the table. The planned puncture sites were prepped and draped in the usual sterile fashion. Coronary Findings Diagnostic Dominance: Right Left Main The vessel was visualized by angiography and is large. The vessel exhibits minimal luminal irregularities. 20% stenosis. Left Anterior Descending LAD distally fills late by left to left collaterals. Prox LAD-1 lesion is 65% stenosed. This is a 60-70% stenosis. Prox LAD-2 lesion is 55% stenosed. This is a 50-60% stenosis. Mid LAD lesion is 100% stenosed. First Diagonal Branch The vessel is small. There is mild diffuse disease throughout the vessel. Second Diagonal Branch The vessel is moderate in size. The vessel exhibits minimal luminal irregularities. 2nd Diag lesion is 20% stenosed. Ramus Intermedius The vessel is large. The vessel exhibits minimal luminal irregularities. Ramus lesion is 95% stenosed. Proximal. Left Circumflex The vessel is large. The vessel exhibits minimal luminal irregularities. Prox Cx lesion is 20% stenosed. Mid Cx lesion is 20% stenosed. First Obtuse Marginal Branch The vessel is small. 1st Mrg-1 lesion is 20% stenosed. 1st Mrg-2 lesion is 50% stenosed. Second Obtuse Marginal Branch The vessel is moderate in size. 2nd Mrg lesion is 20% stenosed. Right Coronary Artery The vessel was visualized by angiography and is large. The vessel exhibits minimal luminal irregularities. Prox RCA lesion is 55% stenosed. This is a 50-60% stenosis. Mid RCA lesion is 30% stenosed. Dist RCA lesion is 30% stenosed. Right Posterior Descending Artery The vessel is moderate in size. The vessel exhibits minimal luminal irregularities. RPDA-1 lesion is 55% stenosed. This is a 50-60% stenosis. RPDA-2 lesion is 50% stenosed. RPDA-3 lesion is 30% stenosed. Intervention No interventions have been documented. Left Heart Left Ventricle LV systolic pressure is normal. Fluoro Dose Fluoro Dose: 76.3 Gy-cm^2 Cardiac [facility] Director Attending Physician Statement and Signature I have personally performed and/or personally supervised and was present for this entire procedure, including the review and interpretation of all images and physiologic tracings acquired during the course of this study. Signed at 1442 EST Phase: Baseline Data Systolic (mmHg) Diastolic (mmHg) Mean (mmHg) dP/dt (mmHg/sec) A Wave (mmHg) V Wave (mmHg) AO Pressures [phone] LV Pressures 166 9 Coronary Findings Diagnostic Dominance: Right Left Main The vessel was visu (more content not included)... Normal [facility] CBC,PLATELETSon 03-29-2024 Erythrocyte distribution width (RBC) [Ratio] 15.0 % High 10.9 - 14.3 % [facility] Hematocrit (Bld) [Volume fraction] 44.6 % 39.6 - 48.8 % [facility] Hemoglobin (Bld) [Mass/Vol] 13.7 g/dL 13.4 - 16.8 g/dL [facility] Interpretation and review of laboratory results Abnormal [facility] MCH (RBC) [Entitic mass] 24.1 pg Low 26.1 - 33.3 pg [facility] MCHC (RBC) [Mass/Vol] 30.7 g/dL Low 31.9 - 36.5 g/dL [facility] MCV (RBC) [Entitic vol] 78.5 fL Low 79.0 - 94.5 fL [facility] Platelet mean volume (Bld) [Entitic vol] 9.0 fL 8.7 - 12.3 fL [facility] Platelets (Bld) [#/Vol] 351 10*3/uL High 146 - 337 K/uL [facility] RBC (Bld) [#/Vol] 5.68 10*6/uL [facility] WBC (Bld) [#/Vol] 9.95 10*3/uL 3.73 - 10. 10 K/uL [facility] Hematocrit (Bld) [Volume fraction] 44.6 % Normal 39.6-48.[address] [facility] Comment on above: Performed By: #### X M #### [facility] (DEFAULT) [address] [address] Hemoglobin (Bld) [Mass/Vol] 13.7 g/dL Normal 13.4-16.[address] [facility] Comment on above: Performed By: #### X M #### [facility] (DEFAULT) [address] [place] [address] 18940 MCV (RBC) [Entitic vol] 78.5 fL Low 79.0-94.5 [facility] Comment on above: Performed By: #### X M #### [facility] (DEFAULT) [address] [place] [address] 11915 Mean Cell Hgb 24.1 pg Low 26.1-33.[address] [facility] Comment on above: Performed By: #### X M #### [facility] (DEFAULT) [address] [place] [address] 38392 Mean Cell Hgb Conc 30.7 g/dL Low 31.9-36.5 [facility] Comment on above: Performed By: #### X M #### [facility] (DEFAULT) [address] [address] Platelet mean volume (Bld) [Entitic vol] 9.0 fL Normal 8.7-12.[address] [facility] Comment on above: Performed By: #### X M #### [facility] (DEFAULT) [address] [address] Platelets (Bld) [#/Vol] 351 10*3/uL High 146-[address] [facility] Comment on above: Performed By: #### X M #### [facility] (DEFAULT) [address] [address] RBC (Bld) [#/Vol] 5.68 10*6/uL Normal 4.38-5.[address] [facility] Comment on above: Performed By: #### X M #### [facility] (DEFAULT) [address] [address] RBC Distribution 15.0 % High 10.9-14.3 [facility] Comment on above: Performed By: #### X M #### [facility] (DEFAULT) [address] [place] [address]395 WBC (Bld) [#/Vol] 9.95 10*3/uL Normal 3.73-10.[address] [facility] Comment on above: Performed By: #### X M #### [facility] (DEFAULT) [address] [address] CHEM 6 (LYTES, BUN CREA)on 05-29-2023 Anion gap [Moles/Vol] 17 mmol/L 7 - 17 mmol/L [facility] Chloride [Moles/Vol] 100 mmol/L 98 - 10 8 mmol/L [facility] CO2 [Moles/Vol] 23 mmol/L 21 - 31 mmol/L [facility] Creatinine [Mass/Vol] 0.59 mg/dL Low 0.70 - 1.30 mg/dL [facility] eGFR, CKD-EPI, Male - PINF [facility] Comment on above: Reported eGFR is bas ed on the CKD-EPI 2020 equation using creatinine, age, and sex. Interpretation and review of laboratory results Abnormal [facility] Potassium [Moles/Vol] 3.7 mmol/L 3.5 - 5.0 mmol/L [facility] Sodium [Moles/Vol] 136 mmol/L 135 - 145 mmol/L [facility] Urea nitrogen [Mass/Vol] 9 mg/dL 7 - 25 mg/dL [facility] Urea nitrogen/Creatinine [Mass ratio] 15 mg/mg [facility] Anion gap [Moles/Vol] 17 mmol/L Normal 7-17 [facility] Comment on above: Performed By: #### U [id number] #### [facility] (DEFAULT) [address] [address] Chloride [Moles/Vol] 100 mmol/L Normal 98-[address] [facility] Comment on above: Performed By: #### U [id number] #### [facility] (DEFAULT) [address] [place] [address] CO2 [Moles/Vol] 23 mmol/L Normal 21-31 [facility] Comment on above: Performed By: #### U [id number] #### [facility] (DEFAULT) [address] [place] [address]187 Creatinine [Mass/Vol] 0.59 mg/dL Low 0.70-1.30 [facility] Comment on above: Performed By: #### U [id number] #### [facility] (DEFAULT) [address] [address] eGFR, CKD-EPI, Male > Normal >=[address] [facility] Comment on above: Result Comment: Repo rted eGFR is based on the CKD-EPI 2020 equation using creatinine, age, and sex. Performed By: #### U [id number] #### [facility] (DEFAULT) [address] [place] [address] Potassium [Moles/Vol] 3.7 mmol/L Normal 3.5-5.0 [facility] Comment on above: Performed By: #### U [id number] #### [facility] (DEFAULT) [address] [place] [address] Sodium [Moles/Vol] 136 mmol/L Normal 135-145 [facility] Comment on above: Performed By: #### U [id number] #### [facility] (DEFAULT) [address] [place] [address] Urea nitrogen [Mass/Vol] 9 mg/dL Normal 7-[address] [facility] Comment on above: Performed By: #### U [id number] #### [facility] (DEFAULT) [address] [place] [address] Urea nitrogen/Creatinine [Mass ratio] 15 mg/mg Normal [facility] Comment on above: Performed By: #### U [id number] #### [facility] (DEFAULT) [address] [place] [address] Cardiac catheterization stud yon 03-29-2024 [facility] Radiology Study observation (narrative) [facility] EXTRA LIGHT BLUE TOPon 03-29 [facility] GLUCOSE POCon 03-29-2024 Glucose [Mass/Vol] 136 mg/dL High 70 - 99 mg/dL [facility] POC Sample Type CAPBL [facility] Glucose [Mass/Vol] 174 mg/dL High 70 - 99 mg/dL [facility] POC Sample Type VENO [facility] No Panel Informationon 03-29 Interpretation and review of laboratory results Abnormal [facility] Test performed at address of the patient encounter. [facility] Cardiac echo study Procedure Ordered By: Kadie Mc on 03-03-2024 Avg e' pk nurys 0.09 m/s [facility] Work Phone: Avg E/e' ratio 12.86 [facility] Work [facility]: Body surface area Derived from formula 2.1 m2 [facility] Work Phone: BP EF 50 % [facility] Work Phone: e' lateral pk nurys 0.1100 m/s [facility] Work Phone: e' lateral pk nurys 0.11 m/s [facility] Work Phone: e' septal pk nurys 0.0700 m/s [facility] Work Phone: e' septal pk nurys 0.07 m/s [facility] Work Phone: E/A ratio 0.85 [facility] Work Phone: E[facility]e' lateral [facility]: [facility] EF SP 2CH 53 [facility] Work Phone: EF SP 4CH 53 [facility] Work Phone: FS 31 % [facility] Work Phone: IVS 1.00 cm [facility] Work Phone: LA AREA 2CH 19.40 cm2 [facility] Work Phone: LA area 4CH 21.90 cm2 [facility] Work Phone: LA ESV SP 2CH (MOD) 60 mL [facility] Work Phone: LA ESV SP 4CH (MOD) 58 mL [facility] Work Phone: LV EDV BP 170 mL [facility] Work Phone: LV EDV SP 2CH 144 mL [facility] Work Phone: LV EDV SP 4CH 169 mL [facility] Work Phone: LV ESV BP 85 mL [facility] Work Phone: LV ESV SP 2CH 68 mL [facility] Work Phone: LV ESV SP 4CH 80 mL [facility] Work Phone: LV mass 153.27 g [facility] Work Phone: LV Mass Index 73.0 g/m2 [facility] Work Phone: LV RWT 0.44 [facility] Work Phone: LV stroke volume BP (ml) 85 mL [facility] Work Phone: LV stroke volume index BP 40.48 mL/m2 [facility] Work Phone: LVIDD 4.50 cm [facility] Work Phone: LVIDS 3.10 cm [facility] Work Phone: MV pk A nurys 1.30 m/s [facility] Work Phone: MV pk E nurys 1.10 m/s [facility] Work Phone: [facility] ECHO LV BIPLANE SYSTOLIC VOLUME INDEX 40.48 mL/m2 [facility] Work Phone: [facility] ECHO LV BP DIASTOLIC VOLUME INDEX 80.95 mL/m2 [facility] Work Phone: PW 1.00 cm [facility] Work Phone: RA vol index 4CH (MOD) 10.48 mL/m2 [facility] Work Phone: Right atrium volume 4 chamber method of disks 22 mL [facility] Work Phone: RV basal diam 3.80 cm [facility] Work Phone: RV long diam 9.10 cm [facility] Work Phone: RV mid diam 1.60 cm [facility] Work Phone: RV S' 10.00 cm/s [facility] Work Phone: TAPSE 1.99 cm [facility] Work Phone: [facility] Work Phone: Cardiac echo study Procedure on 03-03-2024 Limited views echo study. Frequent PVCs during the echo study. Left ventricular chamber size is normal with mild concentric remodeling. Low normal systolic function with apical/apical septum akinesis Ejection fraction is 50%. The apex is akinetic and slightly aneurysmal. No LV thrombus. Right ventricular chamber size is slightly enlarged with normal systolic function. S/p PFO closure with 35 mm Amplatzer PFO device on 08/05/2023. Device is seen stable in position.No flow is seen across the device via color doppler. No pericardial effusion. Left Ventricle Chamber size is normal. Concentric remodeling is present. Global hypokinesis with regional wall motion abnormalities. Regional wall motion not well visualized. Wall motion abnormality: Akinesis of the apical wall. Ejection fraction is low normal (50-55%). Diastolic function is normal. Right Ventricle Chamber size is enlarged. Systolic function is normal. Left Atrium Chamber size is normal. Right Atrium Chamber size is normal. IVC/SVC Inferior vena cava not assessed. Mitral Valve Normal appearing leaflets. No regurgitation. No valve stenosis. Tricuspid Valve No regurgitation. Aortic Valve Trileaflet valve. Leaflet mobility is normal. Pulmonic Valve Pulmonic valve not assessed. Pericardium Appears normal. No pericardial effusion. Septum A Amplatzer septal defect closure device is seen. Residual shunt is absent by color flow. Aorta Aorta not assessed. Study Details A limited echocardiography study (including color flow Doppler, limited spectral Doppler and microbubbles) was performed. Contrast indication: evaluation of left ventricle contiguous segments. Imaging system used: TechniScan. Indications Indications for study: other - S/p PFO closure. Wall Scoring Score Index: 1.35 The following segments are akinetic: apical septal, apical inferior and apex. All other segments are normal. [facility] Radiology Study observation (narrative) [facility] ECHOCARDIOGRAMon 03-03-2024 Echocardiography Limited views echo study. Frequent PVCs during the echo study. Left ventricular chamber size is normal with mild concentric remodeling. Low normal systolic function with apical/apical septum akinesis Ejection fraction is 50%. The apex is akinetic and slightly aneurysmal. No LV thrombus. Right ventricular chamber size is slightly enlarged with normal systolic function. S/p PFO closure with 35 mm Amplatzer PFO device on 08/05/2023. Device is seen stable in position.No flow is seen across the device via color doppler. No pericardial effusion. Table formatting from the original result was not included. Images from the original result were not included. Facility [facility] Patient Information Patient Name Antonia Kruger Legal Sex Male Indication for Exam Priority: Routine Dx: PFO (patent foramen ovale) [Q21.12 (ICD-10-CM)]; S/P patent foramen ovale closure [Z87.74 (ICD-10-CM)] Comments: S/p PFO closure. Interpretation Summary Result History is available. Limited views echo study. Frequent PVCs during the echo study. Left ventricular chamber size is normal with mild concentric remodeling. Low normal systolic function with apical/apical septum akinesis Ejection fraction is 50%. The apex is akinetic and slightly aneurysmal. No LV thrombus. Right ventricular chamber size is slightly enlarged with normal systolic function. S/p PFO closure with 35 mm Amplatzer PFO device on 08/05/2023. Device is seen stable in position.No flow is seen across the device via color doppler. No pericardial effusion. Findings Left Ventricle Chamber size is normal. Concentric remodeling is present. Global hypokinesis with regional wall motion abnormalities. Regional wall motion not well visualized. Wall motion abnormality: Akinesis of the apical wall. Ejection fraction is low normal (50-55%). Diastolic function is normal. Right Ventricle Chamber size is enlarged. Systolic function is normal. Left Atrium Chamber size is normal. Right Atrium Chamber size is normal. Septum A Amplatzer septal defect closure device is seen. Residual shunt is absent by color flow. Mitral Valve Normal appearing leaflets. No regurgitation. No valve stenosis. Aortic Valve Trileaflet valve. Leaflet mobility is normal. Tricuspid Valve No regurgitation. Pulmonic Valve Pulmonic valve not assessed. Aorta Aorta not assessed. Pericardium Appears normal. No pericardial effusion. IVC/SVC Inferior vena cava not assessed. Reading Providers Reading Role Read Date Renetta Ma MD Fellow - Reading 03/03/2024 Kadie Mc MD Echo [place], Test Fur Polisher 03/03/2024 Wall Scoring Score Index: 1.35 The following segments are akinetic: apical septal, apical inferior and apex. All other segments are normal. Left Heart Measurements LV - Systole LVIDD 4.5 cm IVS 1 cm LVIDS 3.1 cm PW 1 cm LV RWT 0.44 LV Mass Index 73 g/m2 LV EDV BP 170 mL LV ESV BP 85 mL BP EF 50 % LV stroke volume BP (ml) 85 mL LV stroke volume index BP 40.48 mL/m2 LV - Diastole MV pk E nurys 1.1 m/s MV pk A nurys 1.3 m/s E/A ratio 0.85 e' septal pk nurys 0.07 m/s e' lateral pk nurys 0.11 m/s Avg e' pk nurys 0.09 m/s E/e' septal ratio 15.71 E/e' lateral ratio 10 Avg E/e' ratio 12.86 Left Atrium LA ESV SP 4CH (MOD) 58 mL LA ESV SP 2CH (MOD) 60 mL Right Heart Measurements RV - 2D RV basal diam 3.8 cm RV mid diam 1.6 cm RV long diam 9.1 cm RV - Doppler TAPSE 1.99 cm RV S' 10 cm/s Right Atrium RA vol index 4CH (MOD) 10.48 mL/m2 Doppler Measurements - Mitral Valve Stenosis MV pk E nurys 1.1 m/s MV pk A nurys 1.3 m/s E/A ratio 0.85 PISA-MS MV pk E nurys 1.1 m/s Vitals Height Weight BSA (Calculated - sq m) BP Pulse 1.702 m (5' 7) 98.7 kg (217 lb 8 oz) 2.1 m2 144/80 74 Performing Staff Naheed Seay Study Details A limited echocardiography study (including color flow Doppler, limited spectral Doppler and microbubbles) was performed. Contrast indication: evaluation of left ventricle contiguous segments. Imaging system used: TechniScan. Indications Indications for study: other - S/p PFO closure. Exam Details Performed Procedure Technologist Supporting Staff Performing Physician ECHOCARDIOGRAM OP SITES STUDY DETAILS BILLING Naheed Villeda RN Appointment Date/Status Modality Department 03/03/2024 Completed [place] ECHO/STRESS ECHO, [facility] ECHOCARDIOGRAPHY [place] Begin Exam End Exam 03/03/2024 9:50 AM 03/03/2024 10:49 AM Signed at 1407 EDT External Results Report There is an external results report available. Patient Release Status: This result is viewable by the patient in [employer] ECHOC (more content not included)... Normal [facility] HEMATOCRITon 12-04-2023 Hematocrit (Bld) [Volume fraction] 42.1 % 39.6 - 48.8 % [facility] Interpretation and review of laboratory results Normal [facility] Hematocrit (Bld) [Volume fraction] 42.1 % Normal 39.6-48.[address] [facility] Comment on above: Performed By: #### A 1CB #### [facility] (DEFAULT) [address] [place] [address] MR Heart cine for blood flow velocity mapping W contrast Daniel 12-04-2023 [facility] CMR Report Name: ANTONIA KRUGER : 1970 Scan Date: 2023-12-04 16:23:16 Electronically signed by Juni Jacob 17:56:29 VITALS HEIGHT: 67.01 in (170.20 cm) WEIGHT: 214.00 lbs (97.07 kgs) BSA: 2.08 m^2 BP: 159 / 82 mmHg BASELINE HR: 92 BPM FINAL IMPRESSION Apical regional LV dysfunction with distal LAD territory non-viable infarct scar suggesting an ischemic cardiomyopathy. SUMMARY 52 y/o/f hx HTN, DM, HLP, stroke, prior PFO closure with apical aneurysm CARDIAC MRI LEFT VENTRICLE: There is mild concentric LVH. LV cavity size is mildly dilated with mild systolic dysfunction. Apical septal/inferior and cap akinesis. Quantitative LVEF 48 %. VIABILITY: Late gadolinium enhancement imaging demonstrates apical septal/inferior and cap near transmural (50-75%) non-viable infarct scar. RIGHT VENTRICLE: RV cavity size is normal. RV systolic function is normal. Quantitative RVEF 63 %. LA/RA SEPTUM: Interatrial septal occluder device noted. LEFT ATRIUM: LA cavity size is upper limits of normal. RIGHT ATRIUM: RA cavity size is normal. PERICARDIUM: There is a trivial pericardial effusion. AORTIC VALVE: Peak aortic valve velocity 1.7 m/sec. MITRAL VALVE: There is mild mitral regurgitation. TRICUSPID VALVE: There is trivial tricuspid regurgitation. OTHER FINDINGS: No evidence of myocardial edema/inflammation on T2 mapping. CORE EXAM MEASUREMENTS VOLUMETRIC ANALYSIS -- . . LV Reference RV Reference +------+ +-- ----+ +---- --+ + EDV ml 217 (113-196) 151 (111-210) ml/m^2 104 (62-97) 72 (59-105) ESV ml 113 (29-74) 56 (25-85) ml/m^2 54 (15-37) 27 (13-42) CO L/min 9.15 8.38 L/min/m^2 4.40 4.03 MASS g 184 (107-184) g/m^2 88 (57-91) SV ml 104 (75-131) 95 (72-140) ml/m^2 50 (41-65) 46 (38-70) EF % 48 (58-76) 63 (53-79) '------+ +-- ----+ +---- --+ ' CARDIAC OUTPUT HR: 88 BPM LV DIMENSIONS -- WALL THICKNESS - ANTEROSEPTAL: 1.4 cm WALL THICKNESS - INFEROLATERAL: 1.4 cm LV DENISE: 5.1 cm LV ESD: 3.5 cm LA DIMENSIONS (LV SYSTOLE) -- AREA - 2 CHAMBER: 26 cm^2 LENGTH - 2 CHAMBER: 6 cm AREA - 4 CHAMBER: 26 cm^2 LENGTH - 4 CHAMBER: 7.1 cm VOLUME: 96 ml VOLUME NORMALIZED: 46.0 ml/m^2 RA DIMENSIONS (RV SYSTOLE) -- AREA - 4 CHAMBER: 23 cm^2 EXTRACELLULAR VOLUME MEASUREMENT -- PRE-CONTRAST T1 MYOCARDIUM: 1006 msec PRE-CONTRAST T1 LV CAVITY: 1420 msec POST-CONTRAST T1 MYOCARDIUM: 469 msec POST-CONTRAST T1 LV CAVITY: 317 msec HEMATOCRIT: 42.1 % HEMATOCRIT DATE: ECV: 27 % 17 SEGMENT . --. Segments Wall Motion Hyperenhancement Stress Perfusion Interpretation + + +-------- + -------+ --+ Base Anterior Base Anteroseptal Base Inferoseptal (more content not included)... CARDIOLOGY Jacob Alfredo DO - 12/04/2023 [facility] CMR Report Name: ANTONIA KRUGER : 1970 Scan Date: 2023-12-04 16:23:16 Electronically signed by Jacob Alfredo 17:56:29 VITALS ========= ========= HEIGHT: 67.01 in (170.20 cm) WEIGHT: 214.00 lbs (97.07 kgs) BSA: 2.08 m^2 BP: 159 / 82 mmHg BASELINE HR: 92 BPM FINAL IMPRESSION ========= ========= Apical regional LV dysfunction with distal LAD territory non-viable infarct scar suggesting an ischemic cardiomyopathy. SUMMARY ========= ========= 52 y/o/f hx HTN, DM, HLP, stroke, prior PFO closure with apical aneurysm CARDIAC MRI LEFT VENTRICLE: There is mild concentric LVH. LV cavity size is mildly dilated with mild systolic dysfunction. Apical septal/inferior and cap akinesis. Quantitative LVEF 48 %. VIABILITY: Late gadolinium enhancement imaging demonstrates apical septal/inferior and cap near transmural (50-75%) non-viable infarct scar. RIGHT VENTRICLE: RV cavity size is normal. RV systolic function is normal. Quantitative RVEF 63 %. LA/RA SEPTUM: Interatrial septal occluder device noted. LEFT ATRIUM: LA cavity size is upper limits of normal. RIGHT ATRIUM: RA cavity size is normal. PERICARDIUM: There is a trivial pericardial effusion. AORTIC VALVE: Peak aortic valve velocity 1.7 m/sec. MITRAL VALVE: There is mild mitral regurgitation. TRICUSPID VALVE: There is trivial tricuspid regurgitation. OTHER FINDINGS: No evidence of myocardial edema/inflammation on T2 mapping. CORE EXAM ========= ========= MEASUREMENTS --------- VOLUMETRIC ANALYSIS -- . . LV Reference RV Reference +------+ +-- ----+ +---- --+ + EDV ml 217 (113-196) 151 (111-210) ml/m^2 104 (62-97) 72 (59-105) ESV ml 113 (29-74) 56 (25-85) ml/m^2 54 (15-37) 27 (13-42) CO L/min 9.15 8.38 L/min/m^2 4.40 4.03 MASS g 184 (107-184) g/m^2 88 (57-91) SV ml 104 (75-131) 95 (72-140) ml/m^2 50 (41-65) 46 (38-70) EF % 48 (58-76) 63 (53-79) '------+ +-- ----+ +---- --+ ' CARDIAC OUTPUT HR: 88 BPM LV DIMENSIONS -- WALL THICKNESS - ANTEROSEPTAL: 1.4 cm WALL THICKNESS - INFEROLATERAL: 1.4 cm LV DENISE: 5.1 cm LV ESD: 3.5 cm LA DIMENSIONS (LV SYSTOLE) -- AREA - 2 CHAMBER: 26 cm^2 LENGTH - 2 CHAMBER: 6 cm AREA - 4 CHAMBER: 26 cm^2 LENGTH - 4 CHAMBER: 7.1 cm VOLUME: 96 ml VOLUME NORMALIZED: 46.0 ml/m^2 RA DIMENSIONS (RV SYSTOLE) -- AREA - 4 CHAMBER: 23 cm^2 EXTRACELLULAR VOLUME MEASUREMENT -- PRE-CONTRAST T1 MYOCARDIUM: 1006 msec PRE-CONTRAST T1 LV CAVITY: 1420 msec POST-CONTRAST T1 MYOCARDIUM: 469 msec POST-CONTRAST T1 LV CAVITY: 317 msec HEMATOCRIT: 42.1 % HEMATOCRIT DATE: ECV: 27 % 17 SEGMENT --------- . --------- . Segments Wall Motion Hyperenhancement Stress Perfusion Interpretation + + +-------- + -------+- + Base Anterior Base Anteroseptal Base Inferoseptal Base Inferior Base Inferolateral Base Anterolateral Mid Anterior Mid Anteroseptal 51-75% Mid Inferoseptal Mid Inferior Mid Inferolateral Mid Anterolateral Apical Anterior Apical Septal Akinetic 51-75% Apical Inferior Akinetic 51-75% Apical Lateral [place] Akinetic 76-100% + + +-------- + -------+- + RV Segments Wall Motion Hyperenhancement Interpretation + + +-------- + -------+- + RV Basal Anterior (more content not included)... [facility] Radiology Study observation (narrative) [facility] MRI CARDIAC WITH CONTRAST W/ VELOCITY FLOW [facility] 12-04-2023 MRI CARDIAC WITH CONTRAST W/VELOCITY FLOW MAP [facility] CMR Report Name: ANTONIA KRUGER : 1970 Scan Date: 2023-12-04 16:23:16 Electronically signed by Jacob Alfredo 17:56:29 VITALS HEIGHT: 67.01 in (170.20 cm) WEIGHT: 214.00 lbs (97.07 kgs) BSA: 2.08 m^2 BP: 159 / 82 mmHg BASELINE HR: 92 BPM FINAL Apical regional LV dysfunction with distal LAD territory non-viable infarct scar suggesting an ischemic cardiomyopathy. SUMMARY 52 y/o/f hx HTN, DM, HLP, stroke, prior PFO closure with apical aneurysm CARDIAC MRI LEFT VENTRICLE: There is mild concentric LVH. LV cavity size is mildly dilated with mild systolic dysfunction. Apical septal/inferior and cap akinesis. Quantitative LVEF 48 %. VIABILITY: Late gadolinium enhancement imaging demonstrates apical septal/inferior and cap near transmural (50-75%) non-viable infarct scar. RIGHT VENTRICLE: RV cavity size is normal. RV systolic function is normal. Quantitative RVEF 63 %. LA/RA SEPTUM: Interatrial septal occluder device noted. LEFT ATRIUM: LA cavity size is upper limits of normal. RIGHT ATRIUM: RA cavity size is normal. PERICARDIUM: There is a trivial pericardial effusion. AORTIC VALVE: Peak aortic valve velocity 1.7 m/sec. MITRAL VALVE: There is mild mitral regurgitation. TRICUSPID VALVE: There is trivial tricuspid regurgitation. OTHER FINDINGS: No evidence of myocardial edema/inflammation on T2 mapping. CORE EXAM MEASUREMENTS VOLUMETRIC ANALYSIS -- . . LV Reference RV Reference +------+ +-- ----+ +---- --+ + EDV ml 217 (113-196) 151 (111-210) ml/m^2 104 (62-97) 72 (59-105) ESV ml 113 (29-74) 56 (25-85) ml/m^2 54 (15-37) 27 (13-42) CO L/min 9.15 8.38 L/min/m^2 4.40 4.03 MASS g 184 (107-184) g/m^2 88 (57-91) SV ml 104 (75-131) 95 (72-140) ml/m^2 50 (41-65) 46 (38-70) EF % 48 (58-76) 63 (53-79) '------+ +-- ----+ +---- --+ ' CARDIAC OUTPUT HR: 88 BPM LV DIMENSIONS -- WALL THICKNESS - ANTEROSEPTAL: 1.4 cm WALL THICKNESS - INFEROLATERAL: 1.4 cm LV DENISE: 5.1 cm LV ESD: 3.5 cm LA DIMENSIONS (LV SYSTOLE) -- AREA - 2 CHAMBER: 26 cm^2 LENGTH - 2 CHAMBER: 6 cm AREA - 4 CHAMBER: 26 cm^2 LENGTH - 4 CHAMBER: 7.1 cm VOLUME: 96 ml VOLUME NORMALIZED: 46.0 ml/m^2 RA DIMENSIONS (RV SYSTOLE) -- AREA - 4 CHAMBER: 23 cm^2 EXTRACELLULAR VOLUME MEASUREMENT -- PRE-CONTRAST T1 MYOCARDIUM: 1006 msec PRE-CONTRAST T1 LV CAVITY: 1420 msec POST-CONTRAST T1 MYOCARDIUM: 469 msec POST-CONTRAST T1 LV CAVITY: 317 msec HEMATOCRIT: 42.1 % HEMATOCRIT DATE: ECV: 27 % 17 SEGMENT . --. Segments Wall Motion Hyperenhancement Stress Perfusion Interpretation + + +-------- + -------+ --+ Base Anterior Base Anteroseptal Base Inferoseptal Base Inferior Base Inferolateral Base Anterolateral Mid Anterior Mid Anteroseptal 51-75% Mid Inferoseptal Mid Inferior Mid Inferolateral Mid Anterolateral Apical Anterior Apical Septal Akinetic 51-75% Apical Inferior Akinetic 51-75% Apical Lateral [place] Akinetic 76-100% + + +-------- + -------+ --+ RV Segments Wall Motion Hyperenhancement Interpretation + + +-------- + -------+ --+ RV Basal Anterior RV Basal Inferior RV Mid RV Apical ' + +-------- + ----- (more content not included)... Normal [facility] Cardiac echo study Procedure Ordered By: Tanmay Glover on 09-10-2023 Ao ASC index 1.59 cm/m2 [facility] Work Phone: Ao peak nurys [facility].46 [facility]: Ao SOV index 1.66 cm/m2 [facility] Work Phone: Ao STJ index 1.40 cm/m2 [facility] Work Phone: [facility]o VTI 30.[facility]: AV LVOT peak gradient 7 mmHg [facility] Work Phone: AV mean gradient 5 mmHg [facility] Work Phone: AV peak gradient 9 mmHG [facility] Work Phone: AV valve area 2.83 cm2 [facility] Work Phone: AV Velocity Ratio 0.93 [facility] Work Phone: KAMINI (continuity Vmax) 2.87 cm2 [facility] Work Phone: KAMINI (continuity VTI) 2.83 cm2 [facility] Work Phone: KAMINI index (continuity Vmax) 1.36 m/s [facility] Work Phone: KAMINI index (continuity VTI) 1.34 cm2/m2 [facility] Work Phone: Avg e' pk nurys 0.07 m/s [facility] Work Phone: Avg E/e' ratio 11.21 [facility] Work Phone: Body surface area Derived from formula 2.11 m2 [facility] Work Phone: BP EF 54 % [facility] Work Phone: DI (Vmax) 0.93 [facility] Work Phone: DI (VTI) 0.92 m/2 [facility] Work Phone: E wave decelartion time 237.[address] [facility] Work Phone: e' lateral pk [facility].0823 [facility]: e' lateral pk nurys 0.08 [facility]: e' septal pk nurys 0.0603 m/s [facility] Work Phone: e' septal pk nurys 0.06 m/s [facility] Work Phone: E/A ratio 0.62 [facility] Work Phone: E/e' lateral ratio 9.48 [facility] Work Phone: E/e' septal [facility] 12[facility]: EF SP 2CH 61 [facility] Work Phone: EF SP 4CH 50 [facility] Work Phone: FS 23 % Abnormal 28 - 44 % [facility] Work Phone: Interpretation and review of laboratory results Abnormal [facility] Work Phone: IVC ostium 1.83 cm [facility] Work Phone: IVS 0.98 [facility] Work [facility]: LA area 4CH 20.10 cm2 [facility] Work Phone: LA ESV SP 4CH (MOD) 50 mL [facility] Work Phone: LV EDV BP 151 mL [facility] Work [facility]: LV EDV SP 2CH 147 mL [facility] Work Phone: LV EDV SP 4CH 153 mL [facility] Work Phone: LV ESV BP 70 mL [facility] Work Phone: LV ESV SP 2CH 57 mL [facility] Work Phone: LV ESV SP 4CH 77 mL [facility] Work Phone: LV mass 142.24 g [facility] Work Phone: LV Mass Index 67.4 g/m2 [facility] Work Phone: LV RWT 0.44 [facility] Work Phone: LV stroke volume BP (ml) 81 mL [facility] Work Phone: LV stroke volume index BP 38.39 mL/m2 [facility] Work Phone: LVIDD 4.39 cm [facility] Work Phone: LVIDS 3.38 cm [facility] Work Phone: LVOT area 3.08 cm2 [facility] Work Phone: LVOT diameter 1.98 cm [facility] Work Phone: LVOT peak nurys 1.36 m/s [facility] Work Phone: LVOT peak VTI 28.04 cm [facility] Work Phone: LVOT stroke volume 86 cm3 [facility] Work Phone: LVOT stroke volume index 40.90 ml/m2 [facility] Work Phone: MV pk A nurys 1.25 m/s [facility] Work Phone: MV pk E nurys 0.78 m/s [facility] Work Phone: MV stenosis pressure 1/2 time 68.90 ms [facility] Work Phone: MV valve area p 1/2 method 3.19 cm2 [facility] Work Phone: [facility] AV VTI RATIO PRE STRESS 0.92 [facility] Work Phone: [facility] ECHO LV BIPLANE SYSTOLIC VOLUME INDEX 33.18 mL/m2 [facility] Work Phone: [facility] ECHO LV BP DIASTOLIC VOLUME INDEX 71.56 mL/m2 [facility] Work Phone: PV peak gradient 5 mmHg [facility] Work Phone: PV PK NURYS 1.08 m/s [facility] Work Phone: PW 0.97 cm [facility] Work Phone: RA vol index 4CH (MOD) 16.11 mL/m2 [facility] Work Phone: Right atrium volume 4 chamber method of disks 34 mL [facility] Work Phone: RV Area diastolic 22.38 cm2 [facility] Work Phone: RV Area systolic 13.66 cm2 [facility] Work Phone: RV basal diam 4.55 cm [facility] Work Phone: RV Fractional area change 39.0 % [facility] Work Phone: RV long diam 10.62 cm [facility] Work Phone: RV mid diam 2.73 cm [facility] Work Phone: RV S' 12.71 cm/s [facility] Work Phone: RVOT peak gradient 1 mmHg [facility] Work Phone: RVOT peak nurys 0.56 m/s [facility] Work Phone: Sinus 3.51 cm [facility] Work Phone: STJ 2.95 cm [facility] Work Phone: Stroke Volume 86 cm/mL [facility] Work Phone: Stroke volume index 41 [facility] Work Phone: TAPSE 1.78 cm [facility] Work Phone: [facility] Work Phone: Cardiac echo study Procedure on 09-10-2023 Left Ventricle: Chamber size is normal. Normal wall thickness. No concentric nor eccentric hypertrophy. Normal global systolic function. Wall motion abnormality: See wall scoring diagram. Ejection fraction is low normal (50-55%). Diastolic function is normal. Right Ventricle: Chamber size is mildly enlarged. Normal wall thickness. Segmental wall motion is normal. Systolic function is normal. Left Atrium: Chamber size is normal. Aortic Valve: Trileaflet valve. Leaflet mobility is normal. No regurgitation. No stenosis. Mitral Valve: Normal appearing leaflets. Leaflet mobility is normal. No regurgitation. No valve stenosis. Tricuspid Valve: Normal leaflets. Leaflet mobility is normal. No regurgitation. No stenosis. Left Ventricle Chamber size is normal. Normal wall thickness. No concentric nor eccentric hypertrophy. Normal global systolic function. Wall motion abnormality: See wall scoring diagram. The ejection fraction is 50%. Ejection fraction is low normal (50-55%). Diastolic function is normal. Right Ventricle Chamber size is mildly enlarged. Normal wall thickness. Segmental wall motion is normal. Systolic function is normal. Tricuspid annular plane systolic excursion is 1.78 cm. Fractional area change equals 39.0%. Left Atrium Chamber size is normal. Right Atrium Chamber size is normal. IVC/SVC The inferior vena cava is normal in size. The inferior vena cava structure has a diameter <21 mm and decreases >50% during inspiration. Mitral Valve Normal appearing leaflets. Leaflet mobility is normal. No regurgitation. No valve stenosis. Tricuspid Valve Normal leaflets. Leaflet mobility is normal. No regurgitation. No stenosis. Aortic Valve Trileaflet valve. Leaflet mobility is normal. No regurgitation. No stenosis. Mean gradient: 5 mmHg. The valve Vmax is 1.46 m/s. Pulmonic Valve Normal structure. No regurgitation. No stenosis. Pericardium Appears normal. No pericardial effusion. Septum Adequate appearance of atrial septal closure device. No color flow evidence of residual shunting. Pulmonary Artery The pulmonary artery is normal. Aorta No dilation to extent seen. SOV: 3.51 cm. STJ: 2.95 cm. Ascendin.36 cm. Study Details A complete echocardiography study was performed. Imaging system used: Syapse. Indications Indications for study: other - S/p PFO closure device. Wall Scoring Score Index: 1.24 The following segments are akinetic: apical septal and apex. All other segments are normal. [facility] Radiology Study observation (narrative) [facility] ACT* LOW RANGE, POCon 2023 ACT LOW RANGE, POC 174.0 High [facility] Interpretation and review of laboratory results Abnormal [facility] Test performed at address of the patient encounter. [facility] ACT LOW RANGE, POC 244.0 High [facility] Interpretation and review of laboratory results Abnormal [facility] Test performed at address of the patient encounter. [facility] ACT LOW RANGE, POC 314.0 High [facility] Interpretation and review of laboratory results Abnormal [facility] Test performed at address of the patient encounter. [facility] ACT LOW RANGE, POC 139.0 [facility] Interpretation and review of laboratory results Normal [facility] Test performed at address of the patient encounter. [facility] ACT LOW RANGE, POC 133.0 U [facility] Interpretation and review of laboratory results Normal [facility] Test performed at address of the patient encounter. [facility] CBC,PLATELETSon 08-05-2023 Erythrocyte distribution width (RBC) [Ratio] 14.5 % High 10.9 - 14.3 % [facility] Hematocrit (Bld) [Volume fraction] 43.0 % 39.6 - 48.8 % [facility] Hemoglobin (Bld) [Mass/Vol] 13.6 g/dL 13.4 - 16.8 g/dL [facility] Interpretation and review of laboratory results Abnormal [facility] MCH (RBC) [Entitic mass] 23.9 pg Low 26.1 - 33.3 pg [facility] MCHC (RBC) [Mass/Vol] 31.6 g/dL Low 31.9 - 36.5 g/dL [facility] MCV (RBC) [Entitic vol] 75.7 fL Low 79.0 - 94.5 fL [facility] Platelet mean volume (Bld) [Entitic vol] 9.2 fL 8.7 - 12.3 fL [facility] Platelets (Bld) [#/Vol] 317 10*3/uL 146 - 337 K/uL [facility] RBC (Bld) [#/Vol] 5.68 10*6/uL [facility] WBC (Bld) [#/Vol] 8.84 10*3/uL 3.73 - 10. 10 K/uL [facility] CHEM 6 (LYTES, BUN CREA)on 0 08-05-2023 Anion gap [Moles/Vol] 16 mmol/L 7 - 17 mmol/L [facility] Chloride [Moles/Vol] 102 mmol/L 98 - 10 8 mmol/L [facility] CO2 [Moles/Vol] 24 mmol/L 21 - 31 mmol/L [facility] Creatinine [Mass/Vol] 0.61 mg/dL Low 0.70 - 1.30 mg/dL [facility] eGFR, CKD-EPI, Male - PINF [facility] Comment on above: Reported eGFR is bas ed on the CKD-EPI 2020 equation using creatinine, age, and sex. Interpretation and review of laboratory results Abnormal [facility] Potassium [Moles/Vol] 3.9 mmol/L 3.5 - 5.0 mmol/L [facility] Sodium [Moles/Vol] 138 mmol/L 135 - 145 mmol/L [facility] Urea nitrogen [Mass/Vol] 20 mg/dL 7 - 25 mg/dL [facility] Urea nitrogen/Creatinine [Mass ratio] 33 mg/mg [facility] Cardiac catheterization stud yon 08-05-2023 [facility] Radiology Study observation (narrative) [facility] Cardiac echo study Procedure Ordered By: Ronnie Starks on 08-05-2023 Ao ASC index 1.58 cm/m2 [facility] Work Phone: Ao peak nurys 1.54 m/s [facility] Work Phone: Ao SOV index 1.60 cm/m2 [facility] Work Phone: Ao STJ index 1.33 cm/m2 [facility] Work Phone: Ao VTI 30.32 cm [facility] Work Phone: Ascending aorta 3.33 cm [facility]: AV LVOT peak gradient 5 mmHg [facility] Work Phone: [facility] gradient [facility] AV peak gradient 9 mmHG [facility] Work Phone: AV valve area 2.16 cm2 [facility] Work Phone: AV Velocity Ratio 0.75 [facility] Work Phone: KAMINI (continuity Vmax) 2.09 cm2 [facility] Work Phone: KAMINI (continuity VTI) 2.16 cm2 [facility]: KAMINI index (continuity Vmax) 0.99 m/s [facility]: KAMINI index (continuity VTI) 1.03 cm2/m2 [facility] Work Phone: Avg e' pk nurys 0.08 m/s [facility] Work Phone: Avg E/e' ratio 8.60 [facility] Work Phone: Body surface area Derived from formula 2.11 m2 [facility] Work Phone: BP EF 57 % [facility] Work Phone: DI (Vmax) 0.75 [facility] Work Phone: DI (VTI) 0.78 m/2 [facility] Work Phone: E wave decelartion time 247.58 msec O [facility] Work Phone: e' lateral pk nurys 0.0752 m/s [facility] Work Phone: e' lateral pk nurys 0.08 m/s [facility]: e' septal pk nurys 0.0914 m/s [facility]: e' septal pk nurys 0.09 m/s [facility] Work Phone: E/A ratio 0.53 [facility] Work Phone: E/e' lateral [facility].44 [facility]: E/e' septal [facility] 7.77 [facility] Work [facility]: EF SP 2CH 55 [facility]: EF SP 4CH 59 [facility] Work Phone: EST RAP 3.00 mmHg [facility] Work Phone: FS 34 % 28 - 44 % [facility] Work Phone: IVC ostium 0.70 cm [facility] Work Phone: IVS 1.06 cm [facility] Work Phone: LA AREA 2CH 26.48 cm2 [facility] Work Phone: LA area 4CH 20.35 cm2 [facility] Work Phone: LA ESV BP (MOD) 71 mL [facility] Work Phone: LA ESV BP (MOD) index 34 mL/m2 [facility] Work Phone: LA ESV SP 2CH (MOD) 96 mL [facility] Work Phone: LA ESV SP 4CH (MOD) 52 mL [facility] Work Phone: LV EDV BP 151 mL [facility] Work Phone: LV EDV SP 2CH 163 mL [facility] Work Phone: LV EDV SP 4CH 139 mL [facility] Work Phone: LV ESV BP 65 mL [facility] Work Phone: LV ESV SP 2CH 73 mL [facility] Work Phone: LV ESV SP 4CH 57 mL [facility] Work Phone: LV mass 169.28 g [facility] Work Phone: LV Mass Index 80.2 g/m2 [facility] Work Phone: LV RWT 0.53 [facility] Work Phone: LV stroke volume BP (ml) 86 mL [facility] Work Phone: LV stroke volume index BP 40.76 mL/m2 [facility] Work Phone: LVIDD 4.37 cm [facility] Work Phone: LVIDS 2.89 cm [facility] Work Phone: LVOT area 2.77 cm2 [facility] Work Phone: LVOT diameter 1.88 cm [facility] Work Phone: LVOT peak nurys 1.16 m/s [facility] Work Phone: LVOT peak VTI 23.64 cm [facility] Work Phone: LVOT stroke volume 66 cm3 [facility] Work Phone: LVOT stroke volume index 31.08 ml/m2 [facility] Work Phone: MV pk A nurys 1.34 m/s [facility] Work Phone: MV pk E nurys 0.71 m/s [facility] Work Phone: OSU AV VTI RATIO PRE STRESS 0.78 [facility] Work Phone: OSU ECHO LV BIPLANE SYSTOLIC VOLUME INDEX 30.81 mL/m2 [facility] Work Phone: OSU ECHO LV BP DIASTOLIC VOLUME INDEX 71.56 mL/m2 [facility] Work Phone: PV mean gradient 2 mmHg [facility] Work Phone: PV peak gradient 5 [facility] Work Phone: PV PK NURYS 1.09 m/s [facility] Work [facility]: PW 1.16 cm [facility] Work Phone: RA area 4CH (MOD) 14.30 cm2 [facility] Work Phone: RA vol index 4CH (MOD) 18.01 mL/m2 [facility] Work Phone: Right atrium volume 4 chamber method of disks 38 mL [facility] Work Phone: RV Area diastolic 20.20 cm2 [facility] Work Phone: RV Area systolic 11.00 cm2 [facility] Work Phone: RV basal diam 4.55 cm [facility] Work Phone: RV Fractional area change 45.5 % [facility] Work Phone: RV long diam 9.53 cm [facility] Work Phone: RV mid diam 2.65 cm [facility] Work Phone: RV S' 12.83 cm/s [facility] Work Phone: Sinus 3.37 cm [facility] Work Phone: STJ 2.81 cm [facility] Work Phone: Stroke Volume 66 cm/mL [facility] Work Phone: Stroke volume index 31 [facility] Work Phone: TAPSE 2.13 cm [facility] Work Phone: [facility] Work Phone: Cardiac echo study Procedure on 08-05-2023 S/p PFO closure with 35 mm Amplatzer PFO device on 08/05/2023. No flow is seen across the device via color doppler. Left ventricle is normal in size with normal systolic function, LVEF by biplane method 57%. Akinetic/aneurysmal apex. Asymmetric septal hypertrophy up to 1.6 cm is seen. No LVOT obstruction. Right ventricle is normal in size with normal systolic function. Valves are normal in structure. No significant valvular dysfunction. Mild left atrial enlargement. Unable to estimate RVSP due to insufficient TR jet. Given RWMA would consider LAD distribution infarction vs HOCM Left Ventricle Chamber size is normal. Concentric remodeling is present. Regional wall motion is normal. The ejection fraction is 57%. Ejection fraction by modified Keating's rule is normal (55 - 60%). Apical aneurysm present. Diastolic function could not be determined. LVOT peak gradient: 5 mmHg. Right Ventricle Chamber size is normal. Normal wall thickness. Segmental wall motion is normal. Systolic function is normal. Fractional area change equals 45.5%. Left Atrium Chamber size is mildly enlarged. Right Atrium Chamber size is normal. IVC/SVC The inferior vena cava is normal in size. The inferior vena cava structure has a diameter <21 mm and decreases >50% during inspiration. Mitral Valve Normal appearing leaflets. Leaflet mobility is normal. No regurgitation. No valve stenosis. Tricuspid Valve Normal leaflets. Leaflet mobility is normal. Trace regurgitation. No stenosis. Aortic Valve Trileaflet valve. Leaflet mobility is normal. No regurgitation. No stenosis. Pulmonic Valve Normal structure. No regurgitation. No stenosis. Pericardium Appears normal. Trivial pericardial effusion. Septum A Amplatzer septal defect closure device is seen. Residual shunt is absent by color flow. Aorta No dilation to extent seen. SOV: 3.37 cm. STJ: 2.81 cm. Ascendin.33 cm. Study Details A complete echocardiography study (including microbubbles) was performed. Contrast indication: evaluation of left ventricle apex. Imaging system used: Ulmart. Indications Indications for study: other - post-PFO closure. Wall Scoring Score Index: 1.35 The following segments are akinetic: apical septal, apical inferior and apex. All other segments are normal. [facility] Radiology Study observation (narrative) [facility] GLUCOSE POCon 08-05-2023 Glucose [Mass/Vol] 165 mg/dL High 70 - 99 mg/dL [facility] Interpretation and review of laboratory results Abnormal [facility] POC Sample Type CAPBL [facility] Test performed at address of the patient encounter. [facility] Glucose [Mass/Vol] 147 mg/dL High 70 - 99 mg/dL [facility] Interpretation and review of laboratory results Abnormal [facility] POC Sample Type VENO [facility] Test performed at address of the patient encounter. [facility] TYPE AND SCREENon 08-05-2023 ABO/RH(D) TYPE Negative [facility] Absolute lymphocyte countOrd ered By: Kristahelena Schmidt on 03-06-2023 Lymphocytes Auto (Unsp spec) [#/Vol] 2.26 10*3/uL 0.83-4.51 [facility] Basophil percentageOrdered B y: Kristahelena Schmidt on 03-06-2023 Basophils/100 WBC (Bld) 0.7 % 0-1 [facility] Bilirubin [Mass/Vol] 0.40 mg/dL 0.20-1.00 [facility] Comment on above: For patients on eltr ombopag therapy, use of Dimension [place] TBIL is not recommended. Chloride [Moles/Vol] 105 mmol/L 98-107 [facility] Cholesterol [Mass/Vol] 104 mg/dL <200 [facility] Comment on above: <200 mg/dL Desirable 200-240 mg/dL Borderline >240 mg/dL High Risk Eosinophils/100 WBC (Bld) 1.9 % 0-5 [facility] Glucose [Mass/Vol] 86 mg/dL 74-106 [facility] Neutrophils (Bld) [#/Vol] 4.2 10*3/uL 2.0-7.7 [facility] Neutrophils/100 WBC (Bld) 55.4 % 47-70 [facility] Potassium [Moles/Vol] 3.5 mmol/L 3.5-5.1 [facility] Protein [Mass/Vol] 7.4 g/dL 6.4-8.2 [facility] Sodium [Moles/Vol] 138 mmol/L 136-145 [facility] Triglyceride [Mass/Vol] 91 mg/dL <199 [facility] Comment on above: The drugs N-Acetylcy steine and Metamizole may falsely depress this assay.Serum Triglycerides Reference Interval Normal <150 mg/dL Borderline high 150 - 199 mg/dL High 200 - 499 mg/dL Very High > or = 500 mg/dL WBC (Bld) [#/Vol] 7.5 10*3/uL 4.4-11.0 [facility] Blood erythrocytes count (nu mber/volume)Ordered By: Krista Schmidt on 03-06-2023 RBC (Bld) [#/Vol] 5.13 10*6/uL 4.6-6.2 [facility] Blood hemoglobin measurement (mass/volume)Ordered By: Krista Schmidt on 03-06-2023 Hemoglobin (Bld) [Mass/Vol] 12.3 g/dL 13.0-16.5 [facility] Blood lymphocytes/100 leukoc ytesOrdered By: Krista Schmidt on 03-06-2023 Lymphocytes/100 WBC (Bld) 30.1 % 19-41 [facility] Blood monocytes/100 leukocyt esOrdered By: Krista Schmidt on 03-06-2023 Monocytes/100 WBC (Bld) 11.5 % 0-10 [facility] Blood platelet mean volumeOr dered By: Krista Schmidt on 03-06-2023 Platelet mean volume (Bld) [Entitic vol] 9.6 fL 6.2-12.0 [facility] Determination of erythrocyte mean corpuscular volume (MCV)Ordered By: Krista Schmidt on 03-06-2023 MCV (RBC) [Entitic vol] 79.1 fL 80-94 [facility] Hematocrit Auto (Bld) [Volum e fraction]Ordered By: Krista Schmidt on 03-06-2023 Hematocrit (Bld) [Volume fraction] 40.6 % 40-54 [facility] Laboratory - Chemistry and C hemistry - challengeOrdered By: Krista Schmidt on 03-06-2023 ALP [Catalytic activity/Vol] 80 U/L 45-117 [facility] ALT [Catalytic activity/Vol] 23 U/L 16-61 [facility] CO2 [Moles/Vol] 26.0 mmol/L 21.0-32.0 [facility] Globulin (S) [Mass/Vol] 3.9 g/dL 2.2-4.2 [facility] Urea nitrogen/Creatinine [Mass ratio] 18.7 mg/mg 10-20 [facility] - Hematology and Cell countsOrdered By: Krista Schmidt on 03-06-2023 Erythrocyte distribution width (RBC) [Entitic vol] 41.8 fL 35.1-43.9 [facility] Erythrocyte distribution width (RBC) [Ratio] 14.6 % 11.6-14.6 [facility] Immature granulocytes/100 WBC (Bld) 0.400 % 0.0-0.9 [facility] Comment on above: IG% - Immature Granu locytes (promyelocytes, myelocytes and metamyelocytes) > 1% indicates that a LEFT SHIFT is Present. MCH (RBC) [Entitic mass] 24.0 pg 27.0-32.0 [facility] Nucleated RBC/100 WBC (Bld) [Ratio] 0 % 0-5 [facility] MCHC Auto (RBC) [Mass/Vol]Or dered By: Krista Schmidt on 03-06-2023 MCHC (RBC) [Mass/Vol] 30.3 g/dL 32-36 [facility] No Panel InformationOrdered By: Krista Schmidt on 03-06-2023 Estimated GFR (MDRD) Amer 153 mL/min >60 [facility] Comment on above: GFR Calc Estimated GFR (MDRD) Non-Af Amer 126 mL/min >60 [facility] Comment on above: Non- GFR Calc Urine Microalbumin/Creatinine Ratio 504.6 mg/g CRE <30 [facility] Platelets bldOrdered By: Blanca Schmidt on 03-06-2023 Platelets (Bld) [#/Vol] 362 10*3/uL 150-450 [facility] Serum or plasma albumin michael urement (mass/volume)Ordered By: Krista Schmidt on 03-06-2023 Albumin [Mass/Vol] 3.5 g/dL 3.2-5.0 [facility] Serum or plasma albumin/glob ulin mass ratioOrdered By: Krista Schmidt on 03-06-2023 Albumin/Globulin [Mass ratio] 0.9 {ratio} 0.9-2.4 [facility] Serum or plasma calcium michael urement (mass/volume)Ordered By: Krista Schmidt on 03-06-2023 Calcium [Mass/Vol] 8.8 mg/dL 8.5-10.1 [facility] Serum or plasma cholesterol in HDL measurement (mass/volume)Ordered By: Krista Schmidt on 03-06-2023 Cholesterol in HDL [Mass/Vol] 36 mg/dL >40 [facility] Comment on above: The drugs N-Acetylcy steine and Metamizole may falsely depress this assay. Reference Range HDL <40 mg/dL Low HDL Cholesterol HDL >or= 60 mg/dL High HDL Cholesterol Serum or plasma cholesterol in VLDL measurement (mass/volume)Ordered By: Krista Schmidt on 03-06-2023 Cholesterol in VLDL [Mass/Vol] 18 mg/dL 5-40 [facility] Serum or plasma creatinine m easurement (mass/volume)Ordered By: Krista Schmidt on 03-06-2023 Creatinine [Mass/Vol] 0.70 mg/dL 0.70-1.30 [facility] Comment on above: The validity of the calculated GFR & GFRAA in patients over 70 years has not been determined. Clinical correlation is essential. Serum or plasma low density lipoprotein (LDL) cholesterol measurement (mass/volume)Ordered By: Krista Schmidt on 03-06-2023 Cholesterol in LDL [Mass/Vol] 50 mg/dL 0-130 [facility] Serum or plasma urea nitroge n measurement (mass/volume)Ordered By: Krista Schmidt on 03-06-2023 Urea nitrogen [Mass/Vol] 13 mg/dL 7-18 [facility] Thin prep Papanicolaou smear with manual screeningOrdered By: Krista Schmidt on 03-06-2023 Thin prep Papanicolaou smear with manual screening 11 U/L 15-37 [facility] Thin prep Papanicolaou smear with manual screening 7 5-15 [facility] Thin prep Papanicolaou smear with manual screening 984.0 mg/L NO RANGE EST. [facility] Urine creatinine measurement (mass/volume)Ordered By: Krista Schmidt on 03-06-2023 Creatinine (U) [Mass/Vol] 195.00 mg/dL NO RANGE EST. [facility] Whole blood hemoglobin A1c/t otal hemoglobin ratio (mass fraction)Ordered By: Krista Schmidt on 03-06-2023 HbA1c (Bld) [Mass fraction] 7.1 % 3.8-5.6 [facility] Comment on above: Normal < 5.7 % Predi abetic 5.7 - 6.4 % Diabetic >or= 6.5 % Please note range changes. No Panel Informationon 01-08 POC SARS CoV-2 Antigen Negative [facility] MOLECULAR SUMMARYon 07-27-19 [facility] PABLO MULTIPLEX SCRN WITH REFL EXon 07-25-2022 Interpretation and review of laboratory results Normal [facility] Nuclear Ab Ql (S) Negative Negative [facility] Comment on above: This test includes t he following antibodies: Centromere, Chromatin, DsDNA, Jo1, Ribosomal P, [employer], ScL70, Sm/[employer], Schmidt, SSA and SSB. A negative screen result means each antibody listed is negative. If positive, the individual antibody results will be reflexed. [facility] ANTI PHOSPHOLIPID ANTIBODYOr dered By: Yomaira Perez on 07-25-2022 Cardiolipin IgG IA Qn (S) [facility] Cardiolipin IgM IA Qn (S) [facility] Interpretation and review of laboratory results Normal [facility] BETA 2 GLYCOPROTEIN 1 AB, IG G, IGM, DOMAIN 1on 07-25-2022 Beta 2 Glycoprotein 1 Domain 1 [facility] Beta 2 glycoprotein 1 IgG IA Qn [facility] Beta 2 glycoprotein 1 IgM Qn (S) [facility] Interpretation and review of laboratory results Normal [facility] C REACTIVE PROTEINon 023 CRP High sensitivity method [Mass/Vol] 5.36 mg/L NINF - 10.00 mg/L [facility] CALCIUMon 07-25-2022 Calcium [Mass/Vol] 9.3 mg/dL 8.6 - 10. 5 mg/dL [facility] CBC AND ELECTRONIC DIFFon Basophils (Bld) [#/Vol] 0.07 10*3/uL 0.00 - 0.09 K/uL [facility] Basophils/100 WBC (Bld) 0.8 % [facility] Differential cell count method Nom (Bld) Electronic Differential [facility] Eosinophils (Bld) [#/Vol] 0.17 10*3/uL 0.00 - 0.48 K/uL [facility] Eosinophils/100 WBC (Bld) 1.9 % [facility] Erythrocyte distribution width (RBC) [Ratio] 15.0 % High 10.9 - 14.3 % [facility] Hematocrit (Bld) [Volume fraction] 39.7 % 39.6 - 48.8 % [facility] Hemoglobin (Bld) [Mass/Vol] 12.5 g/dL Low 13.4 - 16.8 g/dL [facility] Immature granulocytes (Bld) [#/Vol] 0.04 10*3/uL NINF - 0.07 K/uL [facility] Immature granulocytes/100 WBC (Bld) 0.4 % [facility] Interpretation and review of laboratory results Abnormal [facility] Lymphocytes (Bld) [#/Vol] 2.42 10*3/uL 0.83 - 3.57 K/uL [facility] Lymphocytes/100 WBC (Bld) 26.9 % [facility] MCH (RBC) [Entitic mass] 24.3 pg Low 26.1 - 33.3 pg [facility] MCHC (RBC) [Mass/Vol] 31.5 g/dL Low 31.9 - 36.5 g/dL [facility] MCV (RBC) [Entitic vol] 77.1 fL Low 79.0 - 94.5 fL [facility] Monocytes (Bld) [#/Vol] 0.70 10*3/uL 0.24 - 0.93 K/uL [facility] Monocytes/100 WBC (Bld) 7.8 % [facility] Neutrophils (Bld) [#/Vol] 5.59 10*3/uL 1.57 - 6.19 K/uL [facility] Nucleated RBC/100 WBC (Bld) [Ratio] 0.0 % [facility] Platelet mean volume (Bld) [Entitic vol] 9.0 fL 8.7 - 12.3 fL [facility] Platelets (Bld) [#/Vol] 341 10*3/uL High 146 - 337 K/uL [facility] RBC (Bld) [#/Vol] 5.15 10*6/uL [facility] Segmented neutrophils/100 WBC (Bld) 62.2 % [facility] WBC (Bld) [#/Vol] 8.99 10*3/uL 3.73 - 10. 10 K/uL [facility] CHEM 7 (LYTES,BUN,CREA,GLUC) on 07-25-2022 Anion gap [Moles/Vol] 14 mmol/L 7 - 17 mmol/L [facility] Chloride [Moles/Vol] 104 mmol/L 98 - 10 8 mmol/L [facility] CO2 [Moles/Vol] 22 mmol/L 21 - 31 mmol/L [facility] Creatinine [Mass/Vol] 0.58 mg/dL Low 0.70 - 1.30 mg/dL [facility] GFR/1.73 sq M.predicted CKD-EPI (S/P/Bld) [Vol rate/Area] - [facility] Comment on above: Reported eGFR is bas ed on the CKD-EPI 2020 equation using creatinine, age, and sex. Glucose [Mass/Vol] 157 mg/dL High 70 - 99 mg/dL [facility] Interpretation and review of laboratory results Abnormal [facility] Osmolality Calc [Osmolality] 289 [facility] Potassium [Moles/Vol] 3.6 mmol/L 3.5 - 5.0 mmol/L [facility] Sodium [Moles/Vol] 136 mmol/L 135 - 145 mmol/L [facility] Urea nitrogen [Mass/Vol] 16 mg/dL 7 - 25 mg/dL [facility] Urea nitrogen/Creatinine [Mass ratio] 28 mg/mg [facility] CONTINUOUS CARDIAC MONITORIN G STRIPon 07-25-2022 [facility] DNA EXTRACTION, [id number] B y: Luh Alejandro on 07-25-2022 [facility] FACTOR V MUTATION FACAnil RICH Non 07-25-2022 Receiving Status Accessioned in Lab [facility] GLUCOSE POCon 07-25-2022 Glucose [Mass/Vol] 146 mg/dL High 70 - 99 mg/dL [facility] Interpretation and review of laboratory results Abnormal [facility] POC Sample Type CAPBL [facility] Test performed at address of the patient encounter. [facility] Glucose [Mass/Vol] 260 mg/dL High 70 - 99 mg/dL [facility] Interpretation and review of laboratory results Abnormal [facility] POC Sample Type CAPBL [facility] Test performed at address of the patient encounter. [facility] Glucose [Mass/Vol] 184 mg/dL High 70 - 99 mg/dL [facility] Interpretation and review of laboratory results Abnormal [facility] POC Sample Type CAPBL [facility] Test performed at address of the patient encounter. [facility] MAGNESIUMon 07-25-2022 Magnesium [Mass/Vol] 1.8 mg/dL 1.6 - 2 .6 mg/dL [facility] No Panel Informationon 07-25 Interpretation and review of laboratory results Normal [facility] PHOSPHATE, INORGANICon 07-25 Phosphate [Mass/Vol] 2.9 mg/dL 2.2 - 4 .6 mg/dL [facility] PROTHROMBIN [id number] MUTATION Ordered By: Yandel Simms on 07-25-2022 Receiving Status Accessioned in Lab [facility] PT,INR,PTTon 07-25-2022 aPTT Coag (PPP) [Time] 29.4 s [facility] INR Coag (Bld) [Relative time] 1.0 {INR} 0.9 - 1.1 [facility] Interpretation and review of laboratory results Normal [facility] PT Coag (PPP) [Time] 13.1 s [facility] SEDIMENTATION RATE, AUTOMATE Don 07-25-2022 ESR (Bld) [Velocity] 34 mm/h High NINF [facility] Interpretation and review of laboratory results Abnormal [facility] US.doppler Lower extremity v ein - bilateralOrdered By: Judith Chan on 07-25-2022 [facility] Work Phone: US.doppler Lower extremity v ein - bilateralon 07-25-2022 Radiology Study observation (narrative) [facility] CALCIUMon 07-24-2022 Calcium [Mass/Vol] 8.7 mg/dL 8.6 - 10. 5 mg/dL [facility] CBC AND ELECTRONIC DIFFon Basophils (Bld) [#/Vol] 0.06 10*3/uL 0.00 - 0.09 K/uL [facility] Basophils/100 WBC (Bld) 0.8 % [facility] Differential cell count method Nom (Bld) Electronic Differential [facility] Eosinophils (Bld) [#/Vol] 0.19 10*3/uL 0.00 - 0.48 K/uL [facility] Eosinophils/100 WBC (Bld) 2.4 % [facility] Erythrocyte distribution width (RBC) [Ratio] 15.1 % High 10.9 - 14.3 % [facility] Hematocrit (Bld) [Volume fraction] 38.1 % Low 39.6 - 48.8 % [facility] Hemoglobin (Bld) [Mass/Vol] 12.0 g/dL Low 13.4 - 16.8 g/dL [facility] Immature granulocytes (Bld) [#/Vol] K/uL NINF - 0.07 K/uL [facility] Immature granulocytes/100 WBC (Bld) 0.3 % [facility] Interpretation and review of laboratory results Abnormal [facility] Lymphocytes (Bld) [#/Vol] 2.51 10*3/uL 0.83 - 3.57 K/uL [facility] Lymphocytes/100 WBC (Bld) 32.1 % [facility] MCH (RBC) [Entitic mass] 24.0 pg Low 26.1 - 33.3 pg [facility] MCHC (RBC) [Mass/Vol] 31.5 g/dL Low 31.9 - 36.5 g/dL [facility] MCV (RBC) [Entitic vol] 76.2 fL Low 79.0 - 94.5 fL [facility] Monocytes (Bld) [#/Vol] 0.73 10*3/uL 0.24 - 0.93 K/uL [facility] Monocytes/100 WBC (Bld) 9.3 % [facility] Neutrophils (Bld) [#/Vol] 4.30 10*3/uL 1.57 - 6.19 K/uL [facility] Nucleated RBC/100 WBC (Bld) [Ratio] 0.0 % [facility] Platelet mean volume (Bld) [Entitic vol] 9.1 fL 8.7 - 12.3 fL [facility] Platelets (Bld) [#/Vol] 320 10*3/uL 146 - 337 K/uL [facility] RBC (Bld) [#/Vol] 5.00 10*6/uL [facility] Segmented neutrophils/100 WBC (Bld) 55.1 % [facility] WBC (Bld) [#/Vol] 7.81 10*3/uL 3.73 - 10. 10 K/uL [facility] CHEM 7 (LYTES,BUN,CREA,GLUC) on 07-24-2022 Anion gap [Moles/Vol] 14 mmol/L 7 - 17 mmol/L [facility] Chloride [Moles/Vol] 104 mmol/L 98 - 10 8 mmol/L [facility] CO2 [Moles/Vol] 22 mmol/L 21 - 31 mmol/L [facility] Creatinine [Mass/Vol] 0.63 mg/dL Low 0.70 - 1.30 mg/dL [facility] GFR/1.73 sq M.predicted CKD-EPI (S/P/Bld) [Vol rate/Area] - PINF [facility] Comment on above: Reported eGFR is bas ed on the CKD-EPI 2020 equation using creatinine, age, and sex. Glucose [Mass/Vol] 173 mg/dL High 70 - 99 mg/dL [facility] Interpretation and review of laboratory results Abnormal [facility] Osmolality Calc [Osmolality] 290 [facility] Potassium [Moles/Vol] 3.5 mmol/L 3.5 - 5.0 mmol/L [facility] Sodium [Moles/Vol] 136 mmol/L 135 - 145 mmol/L [facility] Urea nitrogen [Mass/Vol] 16 mg/dL 7 - 25 mg/dL [facility] Urea nitrogen/Creatinine [Mass ratio] 25 mg/mg [facility] CONTINUOUS CARDIAC MONITORIN G STRIPon 07-24-2022 [facility] ECHOCARDIOGRAM TRANSESOPHAGE AL (CLARITZA)Ordered By: Deysi Collins on 07-24-2022 Ascending aorta 3.59 cm [facility] Work Phone: Body surface area Derived from formula 2.19 m2 [facility] Work Phone: [facility] Work Phone: ECHOCARDIOGRAM TRANSESOPHAGE AL (CLARITZA)on 07-24-2022 Left ventricle is normal in size and systolic function, visual EF 60-65%. Right ventricle is normal in size and systolic function. No LA, RA, or BEN thrombus visualized. Non-specific mitral valve thickening with trivial MR. No pericardial effusion is present. Grade 3 aortic atherosclerosis noted in the descending aorta. Left to right interatrial shunt suggestive of PFO noted by Bubble study and color Doppler during normal respiration. Left Ventricle Chamber size is normal. Normal wall thickness. Normal global systolic function. Regional wall motion is normal. Ejection fraction is normal (60 - 65%). Diastolic function not assessed. Right Ventricle Chamber size is normal. Systolic function is normal. Left Atrium Chamber size is normal. Left atrial appendage appears normal. No left atrial appendage thrombus present. No spontaneous contrast is present in the appendage. Normal pulmonary vein connection present. Normal pulmonary venous flow. Right Atrium Chamber size is normal. Chiari network and a prominent eustachian valve is present. Pressure is normal. IVC/SVC The superior vena cava structure is normal. No thrombus is present in the superior vena cava. Mitral Valve Posterior leaflet thickening. Leaflet mobility is normal. Trace regurgitation. No valve stenosis. Tricuspid Valve Normal leaflets. Leaflet mobility is normal. Trace regurgitation. No stenosis. Aortic Valve Trileaflet valve. Leaflet mobility is normal. No regurgitation. No stenosis. Pulmonic Valve Normal structure. No regurgitation. No stenosis. Pericardium No pericardial effusion. Septum The atrial septum is normal. A patent foramen ovale is present by color flow and saline contrast. A left to right shunt is demonstrated. Aorta No dilation to extent seen. There is a grade 2 (intimal thickening) atheromatous plaque present in the transverse aorta.There is a grade 3 (<5mm) atheromatous plaque present in the descending aorta.Ascendin.59 cm. Study Details The risks and alternatives of the procedure and conscious sedation were explained to the patient/family member and/or their power of assistant attorney general. Informed consent was obtained. All staff members involved in the procedure completed a timeout prior to the start of the procedure verifying correct patient identity and correct procedure to be performed. A transesophageal echocardiography study (including agitated saline contrast study) was performed. Overall study quality was fair. Total time physician provided [id number] service beginning with the administration of sedation medications until the patient was sufficiently recovered after the procedure was 26 minutes. Study limitations include technically difficult study. Probe insertion was not difficult. Patient reaction to probe was well-tolerated. Indications for study: cardiac source of embolus. There were no complications. Wall Scoring Score Index: 1.00 The left ventricular wall motion is normal. [facility] Radiology Study observation (narrative) [facility] GLUCOSE POCon 07-24-2022 Glucose [Mass/Vol] 139 mg/dL High 70 - 99 mg/dL [facility] Interpretation and review of laboratory results Abnormal [facility] POC Sample Type CAPBL [facility] Test performed at address of the patient encounter. [facility] Glucose [Mass/Vol] 215 mg/dL High 70 - 99 mg/dL [facility] Interpretation and review of laboratory results Abnormal [facility] POC Sample Type CAPBL [facility] Test performed at address of the patient encounter. [facility] Glucose [Mass/Vol] 198 mg/dL High 70 - 99 mg/dL [facility] Interpretation and review of laboratory results Abnormal [facility] POC Sample Type CAPBL [facility] Test performed at address of the patient encounter. [facility] MAGNESIUMon 07-24-2022 Magnesium [Mass/Vol] 2.0 mg/dL 1.6 - 2 .6 mg/dL [facility] No Panel Informationon 07-24 [facility] Interpretation and review of laboratory results Normal [facility] PHOSPHATE, INORGANICon 07-24 Phosphate [Mass/Vol] 3.3 mg/dL 2.2 - 4 .6 mg/dL [facility] PT,INR,PTTon 07-24-2022 aPTT Coag (PPP) [Time] 29.9 s [facility] INR Coag (Bld) [Relative time] 1.0 {INR} 0.9 - 1.1 [facility] Interpretation and review of laboratory results Normal [facility] PT Coag (PPP) [Time] 13.0 s [facility] CALCIUMon 07-23-2022 Calcium [Mass/Vol] 9.1 mg/dL 8.6 - 10. 5 mg/dL [facility] CBC AND ELECTRONIC DIFFon Basophils (Bld) [#/Vol] 0.04 10*3/uL 0.00 - 0.09 K/uL [facility] Basophils/100 WBC (Bld) 0.5 % [facility] Differential cell count method Nom (Bld) Electronic Differential [facility] Eosinophils (Bld) [#/Vol] 0.08 10*3/uL 0.00 - 0.48 K/uL [facility] Eosinophils/100 WBC (Bld) 1.1 % [facility] Erythrocyte distribution width (RBC) [Ratio] 14.6 % High 10.9 - 14.3 % [facility] Hematocrit (Bld) [Volume fraction] 39.7 % 39.6 - 48.8 % [facility] Hemoglobin (Bld) [Mass/Vol] 12.3 g/dL Low 13.4 - 16.8 g/dL [facility] Immature granulocytes (Bld) [#/Vol] 0.04 10*3/uL NINF - 0.07 K/uL [facility] Immature granulocytes/100 WBC (Bld) 0.5 % [facility] Interpretation and review of laboratory results Abnormal [facility] Lymphocytes (Bld) [#/Vol] 2.19 10*3/uL 0.83 - 3.57 K/uL [facility] Lymphocytes/100 WBC (Bld) 29.2 % [facility] MCH (RBC) [Entitic mass] 24.0 pg Low 26.1 - 33.3 pg [facility] MCHC (RBC) [Mass/Vol] 31.0 g/dL Low 31.9 - 36.5 g/dL [facility] MCV (RBC) [Entitic vol] 77.4 fL Low 79.0 - 94.5 fL [facility] Monocytes (Bld) [#/Vol] 0.65 10*3/uL 0.24 - 0.93 K/uL [facility] Monocytes/100 WBC (Bld) 8.7 % [facility] Neutrophils (Bld) [#/Vol] 4.50 10*3/uL 1.57 - 6.19 K/uL [facility] Nucleated RBC/100 WBC (Bld) [Ratio] 0.4 % High NINF [facility] Platelet mean volume (Bld) [Entitic vol] 9.3 fL 8.7 - 12.3 fL [facility] Platelets (Bld) [#/Vol] 312 10*3/uL 146 - 337 K/uL [facility] RBC (Bld) [#/Vol] 5.13 10*6/uL [facility] Segmented neutrophils/100 WBC (Bld) 60.0 % [facility] WBC (Bld) [#/Vol] 7.50 10*3/uL 3.73 - 10. 10 K/uL [facility] CHEM 7 (LYTES,BUN,CREA,GLUC) on 07-23-2022 Anion gap [Moles/Vol] 14 mmol/L 7 - 17 mmol/L [facility] Chloride [Moles/Vol] 104 mmol/L 98 - 10 8 mmol/L [facility] CO2 [Moles/Vol] 23 mmol/L 21 - 31 mmol/L [facility] Creatinine [Mass/Vol] 0.58 mg/dL Low 0.70 - 1.30 mg/dL [facility] GFR/1.73 sq M.predicted CKD-EPI (S/P/Bld) [Vol rate/Area] - [facility] Comment on above: Reported eGFR is bas ed on the CKD-EPI 2020 equation using creatinine, age, and sex. Glucose [Mass/Vol] 153 mg/dL High 70 - 99 mg/dL [facility] Osmolality Calc [Osmolality] 292 [facility] Potassium [Moles/Vol] 3.4 mmol/L Low 3.5 - 5.0 mmol/L [facility] Sodium [Moles/Vol] 138 mmol/L 135 - 145 mmol/L [facility] Urea nitrogen [Mass/Vol] 15 mg/dL 7 - 25 mg/dL [facility] Urea nitrogen/Creatinine [Mass ratio] 26 mg/mg [facility] CONTINUOUS CARDIAC MONITORIN G STRIPOrdered By: Unassigned Pacs on 07-23-2022 [facility] Work Phone: CT Head WO contraston 2022 IMPRESSION: No significant interval change in the appearance of the right basal ganglia parenchymal hematoma when accounting for differences in head positioning. I personally viewed and interpreted these images and I have reviewed and approved this report. OLOGY EXAM: CT HEAD WITHOU T CONTRAST, 07/22/2022 7:34 PM COMPARISON: Same day CT stroke alert CLINICAL INDICATIONS: 51 years Male Stroke, hemorrhagic; Stroke, follow up; RELEVANT CLINICAL HISTORY: Perform in 6 hours; TECHNIQUE: A series of transaxial computerized tomographic images are obtained from base of skull to vertex without intravenous contrast. Axial whole-head and thin section posterior fossa slices are provided. Reformats: Sagittal and coronal. FINDINGS: Minimal hematoma in the right basal ganglia is not significantly changed in size when accounting for differences in head position. The AP diameter is again 3.1 cm on series 9 image 64. The transverse diameter currently measures 1.3 cm on series 8 image 54, previously 1.2 cm. No increasing surrounding vasogenic edema. Remote right lacunar infarct affecting the right caudate nucleus. There are multiple areas of hypoattenuation scattered throughout the periventricular and subcortical white matter, which are nonspecific but likely due to chronic microvascular ischemic disease. There is no extracerebral collection. Ventricles are normal in size and configuration for patient's stated age. Posterior fossa is within normal limits. Calvarium and skull base appear intact. RADIOLOGY Krista Mason MD - 07/23/2022 EXAM: CT HEAD WITHOUT CONTRAST, 07/22/2022 7:34 PM COMPARISON: Same day CT stroke alert CLINICAL INDICATIONS: 51 years Male Stroke, hemorrhagic; Stroke, follow up; RELEVANT CLINICAL HISTORY: Perform in 6 hours; TECHNIQUE: A series of transaxial computerized tomographic images are obtained from base of skull to vertex without intravenous contrast. Axial whole-head and thin section posterior fossa slices are provided. Reformats: Sagittal and coronal. FINDINGS: Minimal hematoma in the right basal ganglia is not significantly changed in size when accounting for differences in head position. The AP diameter is again 3.1 cm on series 9 image 64. The transverse diameter currently measures 1.3 cm on series 8 image 54, previously 1.2 cm. No increasing surrounding vasogenic edema. Remote right lacunar infarct affecting the right caudate nucleus. There are multiple areas of hypoattenuation scattered throughout the periventricular and subcortical white matter, which are nonspecific but likely due to chronic microvascular ischemic disease. There is no extracerebral collection. Ventricles are normal in size and configuration for patient's stated age. Posterior fossa is within normal limits. Calvarium and skull base appear intact. IMPRESSION IMPRESSION: No significant interval change in the appearance of the right basal ganglia parenchymal hematoma when accounting for differences in head positioning. I personally viewed and interpreted these images and I have reviewed and approved this report. [facility] CT Head WO contrastOrdered B y: Krista Mason on 07-23-2022 [facility] Work Phone: EXTRA MICROon 07-23-2022 [facility] GLUCOSE POCon 07-23-2022 Glucose [Mass/Vol] 176 mg/dL High 70 - 99 mg/dL [facility] Interpretation and review of laboratory results Abnormal [facility] POC Sample Type CAPBL [facility] Test performed at address of the patient encounter. [facility] Glucose [Mass/Vol] 184 mg/dL High 70 - 99 mg/dL [facility] Interpretation and review of laboratory results Abnormal [facility] POC Sample Type CAPBL [facility] Test performed at address of the patient encounter. [facility] Glucose [Mass/Vol] 216 mg/dL High 70 - 99 mg/dL [facility] Interpretation and review of laboratory results Abnormal [facility] POC Sample Type CAPBL [facility] Test performed at address of the patient encounter. [facility] Glucose [Mass/Vol] 249 mg/dL High 70 - 99 mg/dL [facility] Interpretation and review of laboratory results Abnormal [facility] POC Sample Type CAPBL [facility] Test performed at address of the patient encounter. [facility] Glucose [Mass/Vol] 159 mg/dL High 70 - 99 mg/dL [facility] Interpretation and review of laboratory results Abnormal [facility] POC Sample Type CAPBL [facility] Test performed at address of the patient encounter. [facility] LIPID PANEL W CALCULATED LDL on 07-23-2022 Cholesterol [Mass/Vol] 166 mg/dL NINF - 200 mg/dL [facility] Comment on above: [<200 mg/dL: Desirab le] [200-239 mg/dL: Borderline High] [>239 mg/dL: High] Cholesterol in HDL [Mass/Vol] 40 mg/dL 40 - PINF mg/dL [facility] Comment on above: [<40 mg/dL: Low (Hig h Risk)] [>59 mg/dL: High (Low Risk)] Cholesterol in HDL [Mass/Vol] 126 mg/dL NINF - 130 mg/dL [facility] Cholesterol in LDL [Mass/Vol] 90 mg/dL 0 - 99 mg/dL [facility] Comment on above: [<100 mg/dL: Optimal ] [100-129 mg/dL: Near Optimal] [130-159 mg/dL: Borderline High] [160-189 mg/dL: High] [>189 mg/dL: Very High] Cholesterol.total/Pippa sterol in HDL [Mass ratio] 4.2 {ratio} NINF - 4.5 [facility] Interpretation and review of laboratory results Abnormal [facility] Triglyceride [Mass/Vol] 179 mg/dL High NINF - 150 mg/dL [facility] Comment on above: [<150 mg/dL: Desirab le] [150-199 mg/dL: Borderline] [200-499 mg/dL: High] [>500 mg/dL: Very High] [facility] LT BLUE TOP TUBEon [facility] MAGNESIUMon 07-23-2022 Magnesium [Mass/Vol] 1.4 mg/dL Low 1.6 - 2 .6 mg/dL [facility] MR Brain WO contraston 07-23 IMPRESSION: Stable size of acute parenchymal hemorrhage in the right basal ganglia. No severe intracranial mass effect. Several tiny foci of acute nonhemorrhagic infarct in both hemispheres as detailed above. Underlying chronic ischemic changes. OLOGY EXAM: MRI BRAIN WITHOUT CONTRAST, 07/23/2022 01:50 AM COMPARISON: Head CT 07/22/2022 CLINICAL INDICATIONS: 51 years Male Transient ischemic attack (TIA); RELEVANT CLINICAL HISTORY: TECHNIQUE: A series of multisequence, multiplanar images of the brain are obtained without intravenous contrast. FINDINGS: There is an acute parenchymal hemorrhage again noted in the right basal ganglia region involving the lateral/posterior aspect of the lentiform nuclei and deep white matter. The size of the hemorrhage is stable compared to the previous CT. The blood products demonstrate intermediate T1 signal and low T2 signal consistent with acute blood products. There is mild surrounding edema but no significant intracranial mass effect. Diffusion-weighted imaging demonstrates a punctate focus of restricted diffusion in the subcortical aspect of the right parietal lobe (DWI image 54), and another focus in the left cingulate gyrus (image 55), consistent with areas of acute nonhemorrhagic infarct. There is probably an additional tiny focus of recent infarct in the lateral aspect of the right frontal lobe on DWI image 55. No large territory cortical infarction. There are chronic microvascular ischemic changes and a small remote cortical infarct in the left parietal lobe. Susceptibility weighted imaging is negative for additional foci of underlying hemorrhage. No evidence of mass lesion. No extracerebral collection. Sellar and parasellar structures are unremarkable. Posterior fossa is unremarkable. Ventricles and sulci are within normal limits. Extracranial structures are unremarkable. RADIOLOGY Tonio Vegas MD - 07/23/2022 EXAM: MRI BRAIN WITHOUT CONTRAST, 07/23/2022 01:50 AM COMPARISON: Head CT 07/22/2022 CLINICAL INDICATIONS: 51 years Male Transient ischemic attack (TIA); RELEVANT CLINICAL HISTORY: TECHNIQUE: A series of multisequence, multiplanar images of the brain are obtained without intravenous contrast. FINDINGS: There is an acute parenchymal hemorrhage again noted in the right basal ganglia region involving the lateral/posterior aspect of the lentiform nuclei and deep white matter. The size of the hemorrhage is stable compared to the previous CT. The blood products demonstrate intermediate T1 signal and low T2 signal consistent with acute blood products. There is mild surrounding edema but no significant intracranial mass effect. Diffusion-weighted imaging demonstrates a punctate focus of restricted diffusion in the subcortical aspect of the right parietal lobe (DWI image 54), and another focus in the left cingulate gyrus (image 55), consistent with areas of acute nonhemorrhagic infarct. There is probably an additional tiny focus of recent infarct in the lateral aspect of the right frontal lobe on DWI image 55. No large territory cortical infarction. There are chronic microvascular ischemic changes and a small remote cortical infarct in the left parietal lobe. Susceptibility weighted imaging is negative for additional foci of underlying hemorrhage. No evidence of mass lesion. No extracerebral collection. Sellar and parasellar structures are unremarkable. Posterior fossa is unremarkable. Ventricles and sulci are within normal limits. Extracranial structures are unremarkable. IMPRESSION IMPRESSION: Stable size of acute parenchymal hemorrhage in the right basal ganglia. No severe intracranial mass effect. Several tiny foci of acute nonhemorrhagic infarct in both hemispheres as detailed above. Underlying chronic ischemic changes. [facility] Radiology Study observation (narrative) [facility] MR Brain WO contrastOrdered By: Tonio Vegas on 07-23-2022 [facility] Work Phone: No Panel Informationon 07-23 Interpretation and review of laboratory results Abnormal [facility] Interpretation and review of laboratory results Normal [facility] PHOSPHATE, INORGANICon 07-23 Phosphate [Mass/Vol] 2.5 mg/dL 2.2 - 4 .6 mg/dL [facility] PT,INR,PTTon 07-23-2022 aPTT Coag (PPP) [Time] 29.7 s [facility] INR Coag (Bld) [Relative time] 1.1 {INR} 0.9 - 1.1 [facility] Interpretation and review of laboratory results Normal [facility] PT Coag (PPP) [Time] 13.9 s [facility] ABORH TYPE RECONFIRMATIONon 07-22-2022 ABO/RH(D) TYPE Negative [facility] Absolute lymphocyte countOrd ered By: Dr. Jalloh on 07-22-2022 Lymphocytes Auto (Unsp spec) [#/Vol] 1.97 10*3/uL 0.83-4.51 [facility] Basophil percentageOrdered B y: Dr. Jalloh on 07-22-2022 Basophils/100 WBC (Bld) 0.5 % 0-1 [facility] Chloride [Moles/Vol] 104 mmol/L 98-107 [facility] Eosinophils/100 WBC (Bld) 1.2 % 0-5 [facility] Glucose [Mass/Vol] 190 mg/dL 74-106 [facility] Comment on above: Fasting Glucose resu lt greater than or equal to 126 mg/dL suggests DIABETES MELLITUS per A.D.A. criteria. Neutrophils (Bld) [#/Vol] 5.9 10*3/uL 2.0-7.7 [facility] Neutrophils/100 WBC (Bld) 66.7 % 47-70 [facility] Potassium [Moles/Vol] 3.5 mmol/L 3.5-5.1 [facility] Sodium [Moles/Vol] 138 mmol/L 136-145 [facility] WBC (Bld) [#/Vol] 8.9 10*3/uL 4.4-11.0 [facility] Blood erythrocytes count (nu mber/volume)Ordered By: Dr. Jalloh on 07-22-2022 RBC (Bld) [#/Vol] 5.29 10*6/uL 4.6-6.2 [facility] Blood hemoglobin measurement (mass/volume)Ordered By: Dr. Jalloh on 02-28-2023 Hemoglobin (Bld) [Mass/Vol] 12.9 g/dL 13.0-16.5 [facility] Blood lymphocytes/100 leukoc ytesOrdered By: Dr. Jalloh on 07-22-2022 Lymphocytes/100 WBC (Bld) 22.3 % 19-41 [facility] Blood monocytes/100 leukocyt esOrdered By: Dr. Jalloh on 07-22-2022 Monocytes/100 WBC (Bld) 8.8 % 0-10 [facility] Blood platelet mean volumeOr dered By: Dr. Jalloh on 07-22-2022 Platelet mean volume (Bld) [Entitic vol] 9.3 fL 6.2-12.0 [facility] CBC AND ELECTRONIC DIFFon Basophils (Bld) [#/Vol] 0.04 10*3/uL 0.00 - 0.09 K/uL [facility] Basophils/100 WBC (Bld) 0.3 % [facility] Differential cell count method Nom (Bld) Electronic Differential [facility] Eosinophils (Bld) [#/Vol] K/uL 0.00 - 0.48 K/uL [facility] Eosinophils/100 WBC (Bld) 0.2 % [facility] Erythrocyte distribution width (RBC) [Ratio] 14.9 % High 10.9 - 14.3 % [facility] Hematocrit (Bld) [Volume fraction] 40.9 % 39.6 - 48.8 % [facility] Hemoglobin (Bld) [Mass/Vol] 12.8 g/dL Low 13.4 - 16.8 g/dL [facility] Immature granulocytes (Bld) [#/Vol] 0.10 10*3/uL High NINF - 0.07 K/uL [facility] Immature granulocytes/100 WBC (Bld) 0.8 % [facility] Interpretation and review of laboratory results Abnormal [facility] Lymphocytes (Bld) [#/Vol] 1.32 10*3/uL 0.83 - 3.57 K/uL [facility] Lymphocytes/100 WBC (Bld) 11.0 % [facility] MCH (RBC) [Entitic mass] 24.2 pg Low 26.1 - 33.3 pg [facility] MCHC (RBC) [Mass/Vol] 31.3 g/dL Low 31.9 - 36.5 g/dL [facility] MCV (RBC) [Entitic vol] 77.2 fL Low 79.0 - 94.5 fL [facility] Monocytes (Bld) [#/Vol] 0.72 10*3/uL 0.24 - 0.93 K/uL [facility] Monocytes/100 WBC (Bld) 6.0 % [facility] Neutrophils (Bld) [#/Vol] 9.81 10*3/uL High 1.57 - 6.19 K/uL [facility] Nucleated RBC/100 WBC (Bld) [Ratio] 0.0 % [facility] Platelet mean volume (Bld) [Entitic vol] 9.6 fL 8.7 - 12.3 fL [facility] Platelets (Bld) [#/Vol] 342 10*3/uL High 146 - 337 K/uL [facility] RBC (Bld) [#/Vol] 5.30 10*6/uL [facility] Segmented neutrophils/100 WBC (Bld) 81.7 % [facility] WBC (Bld) [#/Vol] 12.01 10*3/uL High 3.73 - 10 .10 K/uL [facility] 7 - EDon 07-22-2022 Anion gap [Moles/Vol] 13 mmol/L 7 - 17 mmol/L [facility] Chloride [Moles/Vol] 101 mmol/L 98 - 10 8 mmol/L [facility] CO2 [Moles/Vol] 25 mmol/L 21 - 31 mmol/L [facility] Creatinine [Mass/Vol] 0.82 mg/dL 0.70 - 1.30 mg/dL [facility] GFR/1.73 sq M.predicted CKD-EPI (S/P/Bld) [Vol rate/Area] - PINF [facility] Comment on above: Reported eGFR is bas ed on the CKD-EPI 2020 equation using creatinine, age, and sex. Glucose [Mass/Vol] 293 mg/dL High 70 - 99 mg/dL [facility] Interpretation and review of laboratory results Abnormal [facility] Osmolality Calc [Osmolality] 296 [facility] Potassium [Moles/Vol] 4.0 mmol/L 3.5 - 5.0 mmol/L [facility] Sodium [Moles/Vol] 135 mmol/L 135 - 145 mmol/L [facility] Urea nitrogen [Mass/Vol] 14 mg/dL 7 - 25 mg/dL [facility] Urea nitrogen/Creatinine [Mass ratio] 17 mg/mg [facility] CT Head WO contraston 2022 Radiology Study observation (narrative) [facility] CT Head limitedon 07-22-2022 IMPRESSION: Stable size of acute intraparenchymal hematoma centered in the right basal ganglia compared to the outside institution CT head examination performed earlier today. Findings were discussed with Umair Cuevas CNP at 11:21 AM on July 22, 2022. I personally viewed and interpreted these images and I have reviewed and approved this report. OLOGY EXAM: CT STROKE HEAD-STROKE ALERT ONLY, 07/22/2022 11:16 AM COMPARISON: Outside institution CT head of the same date at 9:29 AM via Suzy. CLINICAL INDICATIONS: 51 years Male Suspected Stroke; TECHNIQUE: A series of transaxial computerized tomographic images are obtained from base of skull to vertex without intravenous contrast. Axial whole-head and thin section posterior fossa slices are provided. Reformats: Sagittal and coronal. FINDINGS: Stable size of acute intraparenchymal hematoma centered in the right basal ganglia measuring 31 x 13 mm (series 2 image 19). Mild degree of surrounding vasogenic edema appears unchanged. No significant mass effect or midline shift. Remote lacunar infarct in the right caudate nucleus. Patchy periventricular and subcortical white matter hypoattenuation is nonspecific, but compatible with chronic small vessel disease. Mahoney-white matter differentiation appears preserved. There is no extracerebral collection. Ventricles are normal in size and configuration. Incidental cavum septum pellucidum et vergae, an anatomic variant. Posterior fossa is within normal limits. Calvarium and skull base appear intact. RADIOLOGY Krista Barbosa MD - 07/22/2022 EXAM: CT STROKE HEAD-STROKE ALERT ONLY, 07/22/2022 11:16 AM COMPARISON: Outside institution CT head of the same date at 9:29 AM via Suzy. CLINICAL INDICATIONS: 51 years Male Suspected Stroke; TECHNIQUE: A series of transaxial computerized tomographic images are obtained from base of skull to vertex without intravenous contrast. Axial whole-head and thin section posterior fossa slices are provided. Reformats: Sagittal and coronal. FINDINGS: Stable size of acute intraparenchymal hematoma centered in the right basal ganglia measuring 31 x 13 mm (series 2 image 19). Mild degree of surrounding vasogenic edema appears unchanged. No significant mass effect or midline shift. Remote lacunar infarct in the right caudate nucleus. Patchy periventricular and subcortical white matter hypoattenuation is nonspecific, but compatible with chronic small vessel disease. Mahoney-white matter differentiation appears preserved. There is no extracerebral collection. Ventricles are normal in size and configuration. Incidental cavum septum pellucidum et vergae, an anatomic variant. Posterior fossa is within normal limits. Calvarium and skull base appear intact. IMPRESSION IMPRESSION: Stable size of acute intraparenchymal hematoma centered in the right basal ganglia compared to the outside institution CT head examination performed earlier today. Findings were discussed with Umair Cuevas CNP at 11:21 AM on July 22, 2022. I personally viewed and interpreted these images and I have reviewed and approved this report. [facility] Radiology Study observation (narrative) [facility] CT Head limitedOrdered By: Aram Barbosa on 07-22-2022 [facility] Work Phone: Determination of erythrocyte mean corpuscular volume (MCV)Ordered By: Dr. Jalloh on 07-22-2022 MCV (RBC) [Entitic vol] 78.8 fL 80-94 [facility] Glucose Glucometer (BldC) [M ass/Vol]Ordered By: Dr. Jalloh on 07-22-2022 Glucose [Mass/Vol] 190 mg/dL 74-106 [facility] Comment on above: MANAGEMENT OF PATIEN T CARE PER NURSING PROTOCOL HEMOGLOBIN [id number] By: Lavinia Mason on 07-22-2022 Average glucose Estimated from glycated hemoglobin (Bld) [Mass/Vol] 240 mg/dL [facility] HbA1c (Bld) [Mass fraction] 10.0 % High 4.7 - 5.6 % [facility] Interpretation and review of laboratory results Abnormal [facility] HEPATIC FUNCTION PANELon Albumin [Mass/Vol] 4.2 g/dL 3.5 - 5.0 g/dL [facility] ALP [Catalytic activity/Vol] 73 U/L 32 - 126 U/L [facility] ALT [Catalytic activity/Vol] 19 U/L 10 - 52 U/L [facility] AST [Catalytic activity/Vol] 13 U/L 10 - 39 U/L [facility] Bilirubin [Mass/Vol] 0.8 mg/dL NINF - 1.5 mg/dL [facility] Bilirubin.direct [Mass/Vol] 0.1 mg/dL [facility] mg/dL [facility] Interpretation and review of laboratory results Normal [facility] Protein [Mass/Vol] 7.4 g/dL 6.4 - 8.3 g/dL [facility] HIGH SENSITIVITY TROPONIN I - SINGLE ORDERon 07-22-2022 Interpretation and review of laboratory results Normal [facility] Troponin I.cardiac High sensitivity method [Mass/Vol] 9 ng/L NINF - 53 ng/L [facility] Hematocrit Auto (Bld) [Volum e fraction]Ordered By: Dr. Jalloh on 07-22-2022 Hematocrit (Bld) [Volume fraction] 41.7 % 40-54 [facility] INR in Blood by Coagulation assayOrdered By: Dr. Jalloh on 07-22-2022 INR Coag (Bld) [Relative time] 1.0 {INR} [facility] Laboratory - Chemistry and C hemistry - challengeOrdered By: Dr. Jalloh on 07-22-2022 CO2 [Moles/Vol] 26.0 mmol/L 21.0-32.0 [facility] Urea nitrogen/Creatinine [Mass ratio] 16.3 mg/mg 10-20 [facility] Laboratory - CoagulationOrde red By: Dr. Jalloh on 07-22-2022 aPTT Coag (Bld) [Time] 30.0 s 24.1-36.2 [facility] PT Coag (PPP) [Time] 13.3 s 11.7-14.9 [facility] Laboratory - Hematology and Cell countsOrdered By: Dr. Jalloh on 07-22-2022 Erythrocyte distribution width (RBC) [Entitic vol] 42.0 fL 35.1-43.9 [facility] Erythrocyte distribution width (RBC) [Ratio] 14.6 % 11.6-14.6 [facility] Immature granulocytes/100 WBC (Bld) 0.500 % 0.0-0.9 [facility] Comment on above: IG% - Immature Granu locytes (promyelocytes, myelocytes and metamyelocytes) > 1% indicates that a LEFT SHIFT is Present. MCH (RBC) [Entitic mass] 24.4 pg 27.0-32.0 [facility] Nucleated RBC/100 WBC (Bld) [Ratio] 0 % 0-5 [facility] MCHC Auto (RBC) [Mass/Vol]Or dered By: Dr. Jalloh on 07-22-2022 MCHC (RBC) [Mass/Vol] 30.9 g/dL 32-36 [facility] No Panel Informationon 07-22 [facility] No Panel InformationOrdered By: Dr. Jalloh on 07-22-2022 Estimated Creatinine Clearance Calc 106.57 ml/min [facility] Estimated GFR (MDRD) Amer 144 mL/min >60 [facility] Comment on above: GFR Calc Estimated GFR (MDRD) Non-Af Amer 119 mL/min >60 [facility] Comment on above: Non- GFR Calc Troponin I High Sensitivity 24 pg/mL 3.0-78.0 [facility] Comment on above: Please Note: New Damion t Units and Gender Specific Reference Ranges. For more information see Policy Stat Procedure [place] High Sensitivity Troponin (TNIH) and attachments. PTINR-STROKEon 07-22-2022 INR Coag (Bld) [Relative time] 1.0 {INR} 0.9 - 1.1 [facility] Interpretation and review of laboratory results Normal [facility] PT Coag (PPP) [Time] 13.2 s [facility] PTTon 07-22-2022 aPTT Coag (PPP) [Time] 27.7 s [facility] Interpretation and review of laboratory results Normal [facility] Platelets bldOrdered By: Dr. Jalloh on 07-22-2022 Platelets (Bld) [#/Vol] 333 10*3/uL 150-450 [facility] Serum or plasma calcium michael urement (mass/volume)Ordered By: Dr. Jalloh on 07-22-2022 Calcium [Mass/Vol] 9.1 mg/dL 8.5-10.1 [facility] Serum or plasma creatinine m easurement (mass/volume)Ordered By: Dr. Jalloh on 07-22-2022 Creatinine [Mass/Vol] 0.74 mg/dL 0.70-1.30 [facility] Comment on above: The validity of the calculated GFR & GFRAA in patients over 70 years has not been determined. Clinical correlation is essential. Serum or plasma urea nitroge n measurement (mass/volume)Ordered By: Dr. Jalloh on 07-22-2022 Urea nitrogen [Mass/Vol] 12 mg/dL 7-18 [facility] TOXICOLOGY SCREEN URINE - UD RGOrdered By: Juan Carlos Lopez on 07-22-2022 Barbiturates Ql (U) Negative [facility] Cannabinoids Screen Ql (U) Negative [facility] Drugs identified Screen Nom (U) Negative Negative [facility] Interpretation and review of laboratory results Normal [facility] For Medical Purposes Only. Results are considered presumptive and no confirmatory testing will follow. Cannabinoids (marijuana) and Barbiturates are detected by immunoassay. All other drugs are detected by Liquid Chromatography Mass Spectrometry (LC-MS/MS). The LC-MS/MS test was developed and its performance characteristics determined by the Toxicology Laboratory at [facility]. This test has not been cleared or approved by the FDA. The laboratory is regulated under CLIA as qualified to perform high-complexity testing. This test is used for clinical purposes and should not be regarded as investigational or for research. The following drugs and their cutoff (ng/mL) are included in the LC-MS/MS screen. 6 Monoacetylmorphine(300 ), 7 Aminoflunitrazepam(25) , 7 Aminoclonazepam(200),7 hydroxymitragynine (100),Alphahydroxymida zolam (200), Alphahydrozyalprazolam (400), Alprazolam(50), Amitriptyline(50), Amphetamine(250), Atenolol(500),Benzoyle cgonine(50), Buprenorphine(100), Bupropion(22),Caffeine (04915),Chlordiazepoxi de(50), Chlorpheniramine(100), Chlorpromazine(50), Citalopram(100), Clonazepam(200), Cocaine(25),Codeine(20 0), Cotinine(500),Desipram ine(50), Desmethyldoxepin(100), Dextromethorphan(100), Diazepam(100), Dihydrocodeine(100), Diltazem(50), Diphenhydramine(100),D oxepin(100),EDDP/metha done(100), Ephedrine/Pseudoephedr ine(100), Fentanyl(20), Flunitrazepam(100), Fluoxetine(350), Flurazepam(50), Gabapentin(1500), Haloperidol(25), Hydrocodone(100), Hydromorphone(200), Imipramine(50), Ketamine(25), Lidocaine(25), Lorazepam(100), Lysergide(LSD)(25), Maprotiline(200), MDA(250), MDMA(250), Meperidine(50),Midazol am (200),Methadone(50), Methamphetamine(500), Methylphenidate(50), Metoprolol(50), Morphine(200), Nalbuphine(300), Naloxone(200), Norbuprenorphine(300), Nordiazepam(100), Norfentanyl(50), Noroxycodone (100), Norpropoxyphene(50), Nortriptyline(50), Olanzapine(200), Oxazepam(200), Oxycodone(100), Oxymorphone(200), Phencyclidine(PCP)(25) , Pheniramine(25), Pregabalin(1500), Promethazine(50), Propoxyphene(100), Propanolol(200), Quetiapine(25), Quinidine(500), Ranitidine(500), Risperidone(100), Sertraline(50), Temazepam(100), Thioridazine(100), Tramadol(50), Trazodone(25), Triazolam(100), Trifluoperazine (100),Venlafaxine(50), Verapamil(100), Zolpidem(100). [facility] TYPE AND SCREENon 07-22-2022 ABO/RH(D) TYPE Negative [facility] Thin prep Papanicolaou smear with manual screeningOrdered By: Dr. Jalloh on 07-22-2022 Thin prep Papanicolaou smear with manual screening 8 5-15 [facility] URINE DIPSTICK; REFLEX MICRO SCOPY; REFLEX CULTURE PERFORMABLEon 07-22-2022 Appearance (U) Clear Clear [facility] Color (U) Yellow Yellow [facility] Glucose Test strip (U) [Mass/Vol] 500 mg/dL Abnormal Negative [facility] Interpretation and review of laboratory results Abnormal [facility] Ketones (U) [Mass/Vol] Trace Abnormal Negative [facility] Leukocyte esterase Test strip Ql (U) Negative Negative [facility] Nitrite Ql (U) Negative Negative [facility] pH (U) 6.0 [pH] 5.0 - 7.0 [facility] Protein (U) [Mass/Vol] 100 mg/dL Abnormal Negative [facility] RBC (U) [#/Vol] Negative Negative [facility] Specific gravity (U) [Rel density] 1.015 1.001 - PINF [facility] Urobilinogen (U) [Mass/Vol] 0.2 E.U./dL 0.2 E.U/dL, 1.0 E.U/dL [facility] URINE MICROSCOPIC WITH REFLE X TO CULTUREOrdered By: Denzel Prescott on 07-22-2022 Bacteria LM Ql (Urine sed) ABSENT ABSENT [facility] Epithelial cells.squamous LM Ql (Urine sed) 0/hpf = 0+ 1/hpf = 1+, 2-5/hpf = 2+, 0/hpf = 0+, ABSENT [facility] Interpretation and review of laboratory results Normal [facility] RBC LM.HPF (Urine sed) [#/Area] 0-2 [facility] WBC LM.HPF (Urine sed) [#/Area] 0-5 [facility] Absolute lymphocyte countOrd ered By: Dr. Schmidt on 06-16-2022 Lymphocytes Auto (Unsp spec) [#/Vol] 2.11 10*3/uL 0.83-4.51 [facility] Basophil percentageOrdered B y: Dr. Schmidt on 06-16-2022 Basophils/100 WBC (Bld) 0.9 % 0-1 [facility] Bilirubin [Mass/Vol] 0.60 mg/dL 0.20-1.00 [facility] Comment on above: For patients on eltr ombopag therapy, use of Dimension [place] TBIL is not recommended. Chloride [Moles/Vol] 97 mmol/L 98-107 [facility] Eosinophils/100 WBC (Bld) 1.5 % 0-5 [facility] Glucose [Mass/Vol] 258 mg/dL 74-106 [facility] Comment on above: Glucose result great er than or equal to 200 mg/dLsuggests DIABETES MELLITUS per A.D.A. criteria. Neutrophils (Bld) [#/Vol] 5.7 10*3/uL 2.0-7.7 [facility] Neutrophils/100 WBC (Bld) 65.1 % 47-70 [facility] Potassium [Moles/Vol] 3.9 mmol/L 3.5-5.1 [facility] Protein [Mass/Vol] 7.4 g/dL 6.4-8.2 [facility] Sodium [Moles/Vol] 133 mmol/L 136-145 [facility] WBC (Bld) [#/Vol] 8.7 10*3/uL 4.4-11.0 [facility] Blood erythrocytes count (nu mber/volume)Ordered By: Dr. Schmidt on 06-16-2022 RBC (Bld) [#/Vol] 5.68 10*6/uL 4.6-6.2 [facility] Blood hemoglobin measurement (mass/volume)Ordered By: Dr. Schmidt on 06-16-2022 Hemoglobin (Bld) [Mass/Vol] 13.6 g/dL 13.0-16.5 [facility] Blood lymphocytes/100 leukoc ytesOrdered By: Dr. Schmidt on 06-16-2022 Lymphocytes/100 WBC (Bld) 24.2 % 19-41 [facility] Blood monocytes/100 leukocyt esOrdered By: Dr. Schmidt on 06-16-2022 Monocytes/100 WBC (Bld) 7.7 % 0-10 [facility] Blood platelet mean volumeOr dered By: Dr. Schmidt on 06-16-2022 Platelet mean volume (Bld) [Entitic vol] 9.9 fL 6.2-12.0 [facility] Determination of erythrocyte mean corpuscular volume (MCV)Ordered By: Dr. Schmidt on 06-16-2022 MCV (RBC) [Entitic vol] 76.6 fL 80-94 [facility] Hematocrit Auto (Bld) [Volum e fraction]Ordered By: Dr. Schmidt on 06-16-2022 Hematocrit (Bld) [Volume fraction] 43.5 % 40-54 [facility] Laboratory - Chemistry and C hemistry - challengeOrdered By: Dr. Schmidt on 06-16-2022 ALP [Catalytic activity/Vol] 91 U/L 45-117 [facility] ALT [Catalytic activity/Vol] 34 U/L 16-61 [facility] CO2 [Moles/Vol] 25.0 mmol/L 21.0-32.0 [facility] Globulin (S) [Mass/Vol] 3.8 g/dL 2.2-4.2 [facility] Urea nitrogen/Creatinine [Mass ratio] 16.6 mg/mg 10-20 [facility] Laboratory - Hematology and Cell countsOrdered By: Dr. Schmidt on 06-16-2022 Erythrocyte distribution width (RBC) [Entitic vol] 39.6 fL 35.1-43.9 [facility] Erythrocyte distribution width (RBC) [Ratio] 14.6 % 11.6-14.6 [facility] Immature granulocytes/100 WBC (Bld) 0.600 % 0.0-0.9 [facility] Comment on above: IG% - Immature Granu locytes (promyelocytes, myelocytes and metamyelocytes) > 1% indicates that a LEFT SHIFT is Present. MCH (RBC) [Entitic mass] 23.9 pg 27.0-32.0 [facility] Nucleated RBC/100 WBC (Bld) [Ratio] 0 % 0-5 [facility] MCHC Auto (RBC) [Mass/Vol]Or dered By: Dr. Schmidt on 06-16-2022 MCHC (RBC) [Mass/Vol] 31.3 g/dL 32-36 [facility] No Panel InformationOrdered By: Dr. Schmidt on 06-16-2022 Estimated GFR (MDRD) Amer 124 mL/min >60 [facility] Comment on above: GFR Calc Estimated GFR (MDRD) Non-Af Amer 102 mL/min >60 [facility] Comment on above: Non- GFR Calc Platelets bldOrdered By: Dr. Schmidt on 06-16-2022 Platelets (Bld) [#/Vol] 345 10*3/uL 150-450 [facility] Serum or plasma albumin michael urement (mass/volume)Ordered By: Dr. Schmidt on 06-16-2022 Albumin [Mass/Vol] 3.6 g/dL 3.2-5.0 [facility] Serum or plasma albumin/glob ulin mass ratioOrdered By: Dr. Schmidt on 06-16-2022 Albumin/Globulin [Mass ratio] 0.9 {ratio} 0.9-2.4 [facility] Serum or plasma calcium michael urement (mass/volume)Ordered By: Dr. Schmidt on 06-16-2022 Calcium [Mass/Vol] 9.0 mg/dL 8.5-10.1 [facility] Serum or plasma creatinine m easurement (mass/volume)Ordered By: Dr. Schmidt on 06-16-2022 Creatinine [Mass/Vol] 0.84 mg/dL 0.70-1.30 [facility] Comment on above: The validity of the calculated GFR & GFRAA in patients over 70 years has not been determined. Clinical correlation is essential. Serum or plasma urea nitroge n measurement (mass/volume)Ordered By: Dr. Schmidt on 06-16-2022 Urea nitrogen [Mass/Vol] 14 mg/dL 7-18 [facility] Thin prep Papanicolaou smear with manual screeningOrdered By: Dr. Schmidt on 06-16-2022 Thin prep Papanicolaou smear with manual screening 18 U/L 15-37 [facility] Thin prep Papanicolaou smear with manual screening 11 5-15 [facility] Basophil percentageon 2021 Bilirubin [Mass/Vol] 0.60 mg/dL 0.20-1.00 [facility] Work Phone: Comment on above: For patients on eltr ombopag therapy, use of Dimension [place] TBIL is not recommended. Chloride [Moles/Vol] 100 mmol/L 98-107 [facility] Work Phone: Glucose [Mass/Vol] 184 mg/dL 74-106 [facility] Work Phone: Comment on above: Fasting Glucose resu lt greater than or equal to 126 mg/dL suggests DIABETES MELLITUS per A.D.A. criteria. Potassium [Moles/Vol] 3.8 mmol/L 3.5-5.1 [facility] Work Phone: Protein [Mass/Vol] 7.5 g/dL 6.4-8.2 [facility] Work Phone: Sodium [Moles/Vol] 133 mmol/L 136-145 [facility] Work Phone: Laboratory - Chemistry and C hemistry - challengeon 01-07-2022 ALP [Catalytic activity/Vol] 82 U/L 45-117 [facility] Work Phone: ALT [Catalytic activity/Vol] 27 U/L 16-61 [facility] Work Phone: CO2 [Moles/Vol] 26.0 mmol/L 21.0-32.0 [facility] Work Phone: Globulin (S) [Mass/Vol] 3.9 g/dL 2.2-4.2 [facility] Work Phone: Urea nitrogen/Creatinine [Mass ratio] 24.9 mg/mg 10-20 [facility] Work Phone: No Panel Informationon 01-07 Estimated GFR (MDRD) Amer 139 mL/min >60 [facility] Work Phone: Comment on above: GFR Calc Estimated GFR (MDRD) Non-Af Amer 115 mL/min >60 [facility] Work Phone: Comment on above: Non- GFR Calc Urine Microalbumin/Creatinine Ratio 509.2 mg/g CRE <30 [facility] Work Phone: Serum or plasma albumin michael urement (mass/volume)on 01-07-2022 Albumin [Mass/Vol] 3.6 g/dL 3.2-5.0 [facility] Work Phone: Serum or plasma albumin/glob ulin mass ratioon 01-07-2022 Albumin/Globulin [Mass ratio] 0.9 {ratio} 0.9-2.4 [facility] Work Phone: Serum or plasma calcium michael urement (mass/volume)on 01-07-2022 Calcium [Mass/Vol] 9.0 mg/dL 8.5-10.1 [facility] Work Phone: Serum or plasma creatinine m easurement (mass/volume)on 01-07-2022 Creatinine [Mass/Vol] 0.76 mg/dL 0.70-1.30 [facility] Work Phone: Comment on above: The validity of the calculated GFR & GFRAA in patients over 70 years has not been determined. Clinical correlation is essential. Serum or plasma urea nitroge n measurement (mass/volume)on 01-07-2022 Urea nitrogen [Mass/Vol] 19 mg/dL 7-18 [facility] Work Phone: Thin prep Papanicolaou smear with manual screeningon 01-07-2022 Thin prep Papanicolaou smear with manual screening 14 U/L 15-37 [facility] Work Phone: Thin prep Papanicolaou smear with manual screening 7 5-15 [facility] Work Phone: Thin prep Papanicolaou smear with manual screening 662.0 mg/L NO RANGE EST. [facility] Work Phone: Urine creatinine measurement (mass/volume)on 01-07-2022 Creatinine (U) [Mass/Vol] 130.00 mg/dL NO RANGE EST. [facility] Work Phone: Whole blood hemoglobin A1c/t otal hemoglobin ratio (mass fraction)on 01-07-2022 HbA1c (Bld) [Mass fraction] 10.5 % 3.8-5.6 [facility] Work Phone: Comment on above: Normal < 5.7 % Predi abetic 5.7 - 6.4 % Diabetic >or= 6.5 % Please note range changes. Vital Signs Date Time Vital Sign Value Performing Clinician Mckenna mejia 09-22-2024 00:41-0400 Body weight 93.[address] Krista Schmidt MD Work Phone: [facility] 09-08-2024 10:21-0400 Body height 170.2 cm Jamal Turcios MD Work Phone: [facility] 09-08-2024 10:21-0400 Body mass index (BMI) [Ratio] 32.26 kg/m2 Jamal Turcios MD Work Phone: [facility] 09-08-2024 10:21-0400 Body weight 93.44 kg Jamal Turcios MD Work Phone: [phone] [address] 09-08-2024 10:21-0400 Diastolic blood pressure 100 mm[Hg] Jamal Turcios MD Work Phone: [phone] [address] 09-08-2024 10:21-0400 Heart rate 70 /min Jamal Turcios MD Work Phone: [phone] [address] 09-08-2024 10:21-0400 SaO2% (BldA) [Mass fraction] 95 % Jamal Turcios MD Work Phone: [facility] 09-08-2024 10:21-0400 Systolic blood pressure 166 mm[Hg] Jamal Turcios MD Work Phone: [phone] [address] 09-08-2024 09:45-0400 Body height 170.2 cm Jamal Turcios MD Work Phone: [phone] [address] 09-08-2024 09:45-0400 Body mass index (BMI) [Ratio] 32.57 kg/m2 Jamal Turcios MD Work Phone: [facility] 09-08-2024 09:45-0400 Body weight 94.35 kg Jamal Turcios MD Work Phone: [facility] 09-06-2024 07:23-0400 Body height 167.[address] Krista Schmidt MD Work Phone: [facility] 09-06-2024 07:23-0400 Body weight 93.[address] Krista Schmidt MD Work Phone: [phone] [place] [address] 08-23-2024 00:56-0400 Body weight 95.[address] Krista Schmidt MD Work Phone: [phone] [place] [address] 08-11-2024 13:26-0400 Body height 167.[address] Krista Schmidt MD Work Phone: 6(705)121-918496 [place] [address] 08-11-2024 13:26-0400 Body weight 95.[address] Krista Schmidt MD Work Phone: 2(762)926-089696 [place] [address] 07-14-2024 08:50-0500 Body weight 97.[address] Krista Schmidt MD Work Phone: 8(389)785-906596 [place] [address] 06-14-2024 15:05-0500 Body weight 95.[address] Krista Schmidt MD Work Phone: 5(236)136-142096 [place] [address] 06-14-2024 14:34-0500 Body mass index (BMI) [Ratio] 33.9 kg/m2 Dr. Krista Schmidt MD Work Phone: 1(022)400-980296 [place] [address] 06-14-2024 14:34-0500 Diastolic blood pressure 58 mm[Hg] Dr. Krista Schmidt MD Work Phone: 7(798)697-986896 [place] [address] 06-14-2024 14:34-0500 Heart rate 83 /min Dr. Krista Schmidt MD Work Phone: 2(631)928-887896 [place] [address] 06-14-2024 14:34-0500 SaO2% (BldA) [Mass fraction] 98 % Dr. Krista Schmidt MD Work Phone: 3(637)584-575051 [place] [address] 06-14-2024 14:34-0500 Systolic blood pressure 122 mm[Hg] Dr. Krista Schmidt MD Work Phone: 9(516)320-880097 [address] 06-02-2024 14:45-0500 Body height 170.2 cm [facility] Cardio Nurse Practitioner Work Phone: [facility] 06-02-2024 14:45-0500 Body mass index (BMI) [Ratio] 32.67 kg/m2 [facility] Cardio Nurse Practitioner Work Phone: [facility] 06-02-2024 14:45-0500 Body temperature 98.1 [degF] [facility] Cardio Nurse Practitioner Work Phone: [facility] 06-02-2024 14:45-0500 Body weight 94.62 kg [facility] Cardio Nurse Practitioner Work Phone: [facility] 06-02-2024 14:45-0500 Diastolic blood pressure 65 mm[Hg] [facility] Cardio Nurse Practitioner Work Phone: [facility] 06-02-2024 14:45-0500 Heart rate 60 /min [facility] Cardio Nurse Practitioner Work Phone: [facility] 06-02-2024 14:45-0500 Respiratory rate 20 /min [facility] Cardio Nurse Practitioner Work Phone: [facility] 06-02-2024 14:45-0500 SaO2% (BldA) [Mass fraction] 98 % [facility] Cardio Nurse Practitioner Work Phone: [facility] 06-02-2024 14:45-0500 Systolic blood pressure 140 mm[Hg] [facility] Cardio Nurse Practitioner Work Phone: [facility] 05-02-2024 13:10-0500 Heart rate 83 /min Jacky Meyer MD, Ph D Work Phone: [facility] 05-02-2024 11:40-0500 Body temperature 98.29 [degF] Jacky Meyer MD, Ph D Work Phone: [facility] 05-02-2024 11:40-0500 Diastolic blood pressure 67 mm[Hg] Jacky Meyer MD, PhD Work Phone: [facility] 05-02-2024 11:40-0500 Respiratory rate 14 /min Jacky Meyer MD, Ph D Work Phone: [facility] 05-02-2024 11:40-0500 SaO2% (BldA) [Mass fraction] 98 % Jacky Meyer MD, PhD Work Phone: [facility] 05-02-2024 11:40-0500 Systolic blood pressure 133 mm[Hg] Jacky Meyer MD, PhD Work Phone: 3(604)604-823364 [place] [address] 05-02-2024 00:19-0500 Body mass index (BMI) [Ratio] 36.05 kg/m2 Jacky Meyer MD, PhD Work Phone: 1(876)471-626464 [place] [address] 05-02-2024 00:19-0500 Body weight 95.25 kg Jacky Meyer MD, Ph D Work Phone: 5(885)129-593464 [place] [address] 04-26-2024 07:23-0500 Body height 162.6 cm Jacky Meyer MD, Ph D Work Phone: [facility] 03-29-2024 16:00-0500 Diastolic blood pressure 84 mm[Hg] Jamal Turcios MD Work Phone: [facility] 03-29-2024 16:00-0500 Heart rate 77 /min Jamal Turcios MD Work Phone: 4(514)142-931979 [address] 03-29-2024 16:00-0500 Respiratory rate 20 /min Jamal Turcios MD Work Phone: [facility] 03-29-2024 16:00-0500 SaO2% (BldA) [Mass fraction] 96 % Jamal Turcios MD Work Phone: [facility] 03-29-2024 16:00-0500 Systolic blood pressure 140 mm[Hg] Jamal Turcios MD Work Phone: [facility] 03-29-2024 10:18-0500 Body height 175.3 cm Jamal Turcios MD Work Phone: 3(925)394-476159 [place] [address] 03-29-2024 10:18-0500 Body mass index (BMI) [Ratio] 31.16 kg/m2 Jamal Turcios MD Work Phone: 0(282)833-618759 [place] [address] 03-29-2024 10:18-0500 Body temperature 97.7 [degF] Jamal Turcios MD Work Phone: 7(161)733-820459 [place] [address] 03-29-2024 10:18-0500 Body weight 95.7 kg Jamal Turcios MD Work Phone: 2(265)297-617259 [place] [address] 03-03-2024 11:26-0400 Body height 170.2 cm Jamal Turcios MD Work Phone: 5(302)332-877359 [place] [address] 03-03-2024 11:26-0400 Body mass index (BMI) [Ratio] 34.07 kg/m2 Jamal Turcios MD Work Phone: 6(542)033-007159 [place] [address] 03-03-2024 11:26-0400 Body weight 98.66 kg Jamal Turcios MD Work Phone: 7(882)816-978459 [place] [address] 03-03-2024 11:26-0400 Diastolic blood pressure 80 mm[Hg] Jamal Turcios MD Work Phone: 4(204)501-276959 [place] [address] 03-03-2024 11:26-0400 Heart rate 74 /min Jamal Turcios MD Work Phone: 8(857)260-872059 [place] [address] 03-03-2024 11:26-0400 SaO2% (BldA) [Mass fraction] 98 % Jamal Turcios MD Work Phone: [facility] 03-03-2024 11:26-0400 Systolic blood pressure 144 mm[Hg] Jamal Turcios MD Work Phone: [facility] 03-03-2024 10:49-0400 Body height 170.2 cm Jamal Turcios MD Work Phone: 9(710)340-119855 [place] [address] 03-03-2024 10:49-0400 Body mass index (BMI) [Ratio] 33.51 kg/m2 Jamal Turcios MD Work Phone: 5(033)758-093179 [address] 03-03-2024 10:49-0400 Body weight 97.07 kg Jamal Turcios MD Work Phone: 4(008)403-283179 [address] 10-08-2023 09:06-0400 Body height 170.2 cm Jamal Turcios MD Work Phone: 0(279)517-831679 [address] 10-08-2023 09:06-0400 Body mass index (BMI) [Ratio] 33.36 kg/m2 Jamal Turcios MD Work Phone: 6(784)869-061279 [address] 10-08-2023 09:06-0400 Body weight 96.62 kg Jamal Turcios MD Work Phone: 3(151)062-793779 [address] 10-08-2023 09:06-0400 Diastolic blood pressure 82 mm[Hg] Jamal Turcios MD Work Phone: 4(429)107-558479 [address] 10-08-2023 09:06-0400 Heart rate 78 /min Jamal Turcios MD Work Phone: 1(057)515-380479 [address] 10-08-2023 09:06-0400 SaO2% (BldA) [Mass fraction] 98 % Jamal Turcios MD Work Phone: [facility] 10-08-2023 09:06-0400 Systolic blood pressure 122 mm[Hg] Jamal Turcios MD Work Phone: [facility] 09-10-2023 13:40-0400 Body height 175.3 cm Jamal Turcios MD Work Phone: 6(885)661-389379 [address] 09-10-2023 13:40-0400 Body mass index (BMI) [Ratio] 30.88 kg/m2 Jamal Turcios MD Work Phone: 5(237)582-080279 [address] 09-10-2023 13:40-0400 Body weight 94.9 kg Jamal Turcios MD Work Phone: 1(370)293-705779 [address] 09-10-2023 13:40-0400 Diastolic blood pressure 90 mm[Hg] Jamal Turcios MD Work Phone: 5(361)241-229479 [address] 09-10-2023 13:40-0400 Systolic blood pressure 170 mm[Hg] Jamal Turcios MD Work Phone: 9(485)731-714779 [address] 08-05-2023 18:15-0400 Body temperature 97.7 [degF] Jamal Turcios MD Work Phone: 5(926)579-446779 [address] 08-05-2023 18:15-0400 Diastolic blood pressure 87 mm[Hg] Jamal Turcios MD Work Phone: 3(451)554-501179 [address] 08-05-2023 18:15-0400 Heart rate 81 /min Jamal Turcios MD Work Phone: 2(651)141-691379 [address] 08-05-2023 18:15-0400 Respiratory rate 19 /min Jamal Turcios MD Work Phone: 8(593)158-936579 [address] 08-05-2023 18:15-0400 SaO2% (BldA) [Mass fraction] 96 % Jamal Turcios MD Work Phone: 5(331)326-250655 [place] [address] 08-05-2023 18:15-0400 Systolic blood pressure 173 mm[Hg] Jamal Turcios MD Work Phone: 6(268)663-039355 [place] [address] 08-05-2023 16:00-0400 Body height 175.3 cm Jamal Turcios MD Work Phone: 8(921)223-844779 [address] 08-05-2023 16:00-0400 Body mass index (BMI) [Ratio] 30.9 kg/m2 Jamal Turcios MD Work Phone: 0(222)214-199579 [address] 08-05-2023 16:00-0400 Body weight 94.9 kg Jamal Turcios MD Work Phone: 2(340)914-431779 [address] 07-02-2023 11:16-0500 Body height 175.3 cm Jamal Turcios MD Work Phone: 6(308)934-613355 [place] [address] 07-02-2023 11:16-0500 Body mass index (BMI) [Ratio] 31.01 kg/m2 Jamal Turcios MD Work Phone: 8(247)015-509555 [place] [address] 07-02-2023 11:16-0500 Body weight 95.25 kg Jamal Turcios MD Work Phone: 5(361)157-985879 [address] 07-02-2023 11:16-0500 Diastolic blood pressure 80 mm[Hg] Jamal Turcios MD Work Phone: 2(592)826-121755 [place] [address] 07-02-2023 11:16-0500 Heart rate 64 /min Jamal Turcios MD Work Phone: 7(214)110-064479 [address] 07-02-2023 11:16-0500 Systolic blood pressure 140 mm[Hg] Jamal Turcios MD Work Phone: [facility] 06-12-2023 15:08-0500 Diastolic blood pressure 100 mm[Hg] Marion Short PROJECT FACILITATOR-SUPERVISOR [employer]ING Work Phone: [facility] 06-12-2023 15:08-0500 Systolic blood pressure 162 mm[Hg] [facility] Short PROJECT FACILITATOR-SUPERVISOR [employer]ESHING Work Phone: [facility] 06-12-2023 14:40-0500 Body height 175.3 cm Marion Short PROJECT FACILITATOR-SUPERVISOR [employer]ESHING Work Phone: [facility] 06-12-2023 14:40-0500 Body mass index (BMI) [Ratio] 31.1 kg/m2 [facility] Short PROJECT FACILITATOR-SUPERVISOR [employer]ING Work Phone: [facility] 06-12-2023 14:40-0500 Body weight 95.53 kg [facility] Short PROJECT FACILITATOR-SUPERVISOR [employer]ING Work Phone: [facility] 06-12-2023 14:40-0500 Heart rate 79 /min Marion Short PROJECT FACILITATOR-SUPERVISOR FLESHING Work Phone: [facility] 06-12-2023 14:40-0500 SaO2% (BldA) [Mass fraction] 97 % [facility] Short PROJECT FACILITATOR-SUPERVISOR [employer]ESHING Work Phone: [facility] 03-02-2023 15:02-0400 Body height 167.[address] Kritsa Schmidt Work Phone: [facility] 03-02-2023 15:02-0400 Body mass index (BMI) [Ratio] 34.3 kg/m2 Dr. Krista Schmidt Work Phone: [facility] 03-02-2023 15:02-0400 Body temperature 97.6 [degF] Dr. Krista Schmidt Work Phone: [facility] 03-02-2023 15:02-0400 Body weight 96.[address] Krista Schmidt Work Phone: [facility] 03-02-2023 15:02-0400 Diastolic blood pressure 91 mm[Hg] Dr. Krista Schmidt Work Phone: [facility] 03-02-2023 15:02-0400 Heart rate 107 /min Dr. Krista Schmidt Work Phone: [facility] 03-02-2023 15:02-0400 Respiratory rate 21 /min Dr. Krista Schmidt Work Phone: [facility] 03-02-2023 15:02-0400 SaO2% (BldA) [Mass fraction] 94 % Dr. Krista Schmidt Work Phone: [facility] 03-02-2023 15:02-0400 Systolic blood pressure 153 mm[Hg] Dr. Krista Schmidt Work Phone: [facility] 01-08-2023 07:48-0400 Body temperature 98.6 [degF] Dr. Krista Schmidt Work Phone: [facility] 01-08-2023 07:48-0400 Diastolic blood pressure 104 mm[Hg] Dr. Krista Schmidt Work Phone: 8(719)312-016897 [address] 01-08-2023 07:48-0400 Heart rate 82 /min Dr. Krista Schmidt Work Phone: [facility] 01-08-2023 07:48-0400 Respiratory rate 18 /min Dr. Krista Schmidt Work Phone: [facility] 01-08-2023 07:48-0400 SaO2% (BldA) [Mass fraction] 98 % Dr. Krista Schmidt Work Phone: [facility] 01-08-2023 07:48-0400 Systolic blood pressure 162 mm[Hg] Dr. Krista Schmidt Work Phone: [facility] 09-29-2022 10:44-0400 Body height 175.3 cm Laurie Tellez PROJECT FACILITATOR-SUPERVISOR [employer]ING Work Phone: [facility] 09-29-2022 10:44-0400 Body mass index (BMI) [Ratio] 31.76 kg/m2 Laurie Biswasr PROJECT FACILITATOR-SUPERVISOR [employer]ING Work Phone: [facility] 09-29-2022 10:44-0400 Body temperature 97 [degF] Laurie Biswasr PROJECT FACILITATOR-SUPERVISOR [employer] Work Phone: [facility] 09-29-2022 10:44-0400 Body weight 97.57 kg Laurie Biswasr PROJECT FACILITATOR-SUPERVISOR [employer] Work Phone: [facility] 09-29-2022 10:44-0400 Diastolic blood pressure 98 mm[Hg] Laurie Biswasr PROJECT FACILITATOR-SUPERVISOR [employer]ING Work Phone: [facility] 09-29-2022 10:44-0400 Heart rate 71 /min Laurie Biswasr PROJECT FACILITATOR-SUPERVISOR [employer]ESHING Work Phone: [facility] 09-29-2022 10:44-0400 Systolic blood pressure 180 mm[Hg] Lauriemark Biswasr PROJECT FACILITATOR-SUPERVISOR [employer]ESHING Work Phone: [facility] 09-11-2022 09:44-0400 Body height 175.3 cm Jamal Turcios MD Work Phone: [facility] 09-11-2022 09:44-0400 Body mass index (BMI) [Ratio] 34.26 kg/m2 Jamal Turcios MD Work Phone: [facility] 09-11-2022 09:44-0400 Body weight 105.23 kg Jamal Turcios MD Work Phone: [facility] 09-11-2022 09:44-0400 Diastolic blood pressure 84 mm[Hg] Jamal Turcios MD Work Phone: [facility] 09-11-2022 09:44-0400 Heart rate 64 /min Jamal Turcios MD Work Phone: [facility] 09-11-2022 09:44-0400 Systolic blood pressure 122 mm[Hg] Jamal Turcios MD Work Phone: [facility] 07-25-2022 16:52-0500 Diastolic blood pressure 85 mm[Hg] Jacob Weber MD Work Phone: [facility] 07-25-2022 16:52-0500 Heart rate 81 /min Jacob Weber MD Work Phone: [facility] 07-25-2022 16:52-0500 Respiratory rate 20 /min Jacob Weber MD Work Phone: [facility] 07-25-2022 16:52-0500 SaO2% (BldA) [Mass fraction] 94 % Jacob Weber MD Work Phone: [facility] 07-25-2022 16:52-0500 Systolic blood pressure 159 mm[Hg] Jacob Weber MD Work Phone: [facility] 07-25-2022 16:21-0500 Body temperature 97.9 [degF] Jacob Weber MD Work Phone: [facility] 07-24-2022 07:46-0500 Body height 175.3 cm Jacob Weber MD Work Phone: [facility] 07-24-2022 07:46-0500 Body mass index (BMI) [Ratio] 33.97 kg/m2 Jacob Weber MD Work Phone: [facility] 07-24-2022 07:46-0500 Body weight 104.33 kg Jacob Weber MD Work Phone: [facility] 07-22-2022 08:57-0500 Diastolic blood pressure 97 mm[Hg] Dr. Krista Schmidt Work Phone: [facility] 07-22-2022 08:57-0500 Heart rate 94 /min Dr. Krista Schmidt Work Phone: [facility] 07-22-2022 08:57-0500 Respiratory rate 2 /min Dr. Krista Schmidt Work Phone: [facility] 07-22-2022 08:57-0500 Systolic blood pressure 168 mm[Hg] Dr. Krista Schmidt Work Phone: [facility] 07-22-2022 08:48-0500 SaO2% (BldA) [Mass fraction] 94 % Dr. Krista Schmidt Work Phone: [facility] 07-22-2022 08:25-0500 Body temperature 98 [degF] Dr. Krista Schmidt Work Phone: [facility] 07-22-2022 08:09-0500 Body height 167.[address] Krista Schmidt Work Phone: [facility] 07-22-2022 08:09-0500 Body mass index (BMI) [Ratio] 35.6 kg/m2 Dr. Krista Schmidt Work Phone: [facility] 07-22-2022 08:09-0500 Body weight 100.[address] Krista Schmidt Work Phone: [facility] 05-27-2022 09:44-0500 Body temperature 97.8 [degF] Dr. Krista Schmidt Work Phone: [facility] 05-27-2022 09:44-0500 Diastolic blood pressure 80 mm[Hg] Dr. Krista Schmidt Work Phone: [facility] 05-27-2022 09:44-0500 Heart rate 99 /min Dr. Krista Schmidt Work Phone: [facility] 05-27-2022 09:44-0500 Respiratory rate 20 /min Dr. Krista Schmidt Work Phone: [facility] 05-27-2022 09:44-0500 SaO2% (BldA) [Mass fraction] 97 % Dr. Krista Schmidt Work Phone: [facility] 05-27-2022 09:44-0500 Systolic blood pressure 118 mm[Hg] Dr. Krista Schmidt Work Phone: [facility] 11-20-2021 08:30-0400 Body height 167.[address] Krista Schmidt Work Phone: [facility] Work Phone: 11-20-2021 08:30-0400 Body mass index (BMI) [Ratio] 34.7 kg/m2 Dr. Krista Schmidt Work Phone: [facility] Work Phone: 11-20-2021 08:30-0400 Body weight 97.[address] Krista Schmidt Work Phone: [facility] Work Phone: 11-20-2021 08:30-0400 Diastolic blood pressure 94 mm[Hg] Dr. Krista Schmidt Work Phone: [facility] Work Phone: 11-20-2021 08:30-0400 Heart rate 82 /min Dr. Krista Schmidt Work Phone: [facility] Work Phone: 11-20-2021 08:30-0400 Respiratory rate 18 /min Dr. Krista Schmidt Work Phone: [facility] Work Phone: 11-20-2021 08:30-0400 SaO2% (BldA) [Mass fraction] 95 % Dr. Krista Schmdit Work Phone: [facility] Work Phone: 11-20-2021 08:30-0400 Systolic blood pressure 184 mm[Hg] Dr. Krista Schmidt Work Phone: [facility] Work Phone: Encounters Encounter Date Encounter Type Care Provider Facility Start: 11-02-2024 ambulatory Krista Schmidt Facility:[facility] Start: 09-30-2024 End: 10-22-[address] Krista Schmidt MD Work Phone: [facility] Work Phone: Start: 09-30-2024 End: 10-22-2024 Discharged Recurring Jacky Meyer MD -Cardiac Rehab Work Phone: Start: 09-21-2024 End: 09-21-2024 ambulatory Jacky Meyer Facility:[facility] Start: 09-21-2024 End: 09-21-2024 Discharged Recurring Jacky Meyer MD -Cardiac Rehab Work Phone: Start: 09-08-2024 End: 09-08-2024 Office outpatient visit 40 minutes Jamal Turcios MD Work Phone: [facility] Comment on above: PFO (patent foramen ovale) (Primary Dx); S/P patent foramen ovale closure; Cerebrovascular accident (CVA), unspecified mechanism; Coronary artery disease involving la posta coronary artery of la posta heart, unspecified whether angina present; S/P CABG (coronary artery bypass graft); Essential hypertension; Cardiomyopathy, unspecified type; Hyperlipidemia, unspecified hyperlipidemia type Start: 09-08-2024 ambulatory AJMAL TURCIOS Facility:[facility] Start: 09-08-2024 End: 09-08-2024 Subsequent hospital visit by physician Jamal Turcios MD Work Phone: [facility] Start: 08-29-2024 Registered Recurring Jacky Schneider -Cardiac Rehab Work Phone: Start: 08-26-2024 End: 08-26-[address] Krista Schmidt MD Work Phone: [facility] Work Phone: Start: 08-26-2024 End: 08-26-2024 Patient encounter procedure THIERRY DAVID TODDLER CAREGIVER-C -Laboratory Work Phone: Start: 08-26-2024 End: 08-26-2024 ambulatory THIERRY HERNANDEZ Facility:[facility] Start: 08-22-2024 End: 08-26-2024 ambulatory THIERRY HERNANDEZ PROJECT FACILITATOR-SUPERVISOR [employer]ESHING Facility:A Start: 08-22-2024 End: 08-22-2024 ambulatory GILBERT JACKSON MD Facility:[facility] Start: 08-19-2024 End: 08-22-[address] Krista Schmidt MD Work Phone: [facility] Work Phone: Start: 08-19-2024 End: 08-22-2024 Discharged Recurring Jacky Meyer MD -Cardiac Rehab Work Phone: Start: 08-17-2024 Registered Recurring Jacky Schneider -Cardiac Rehab Work Phone: Start: 08-13-2024 End: 08-13-[address] Krista Schmidt MD Work Phone: [facility] Work Phone: Start: 08-13-2024 End: 08-13-2024 Patient encounter procedure THIERRY HERNANDEZ TODDLER CAREGIVER-C -Laboratory Work Phone: Start: 08-13-2024 End: 08-13-2024 ambulatory THIERRY HERNANDEZ Facility:[facility] Start: 07-22-2024 End: 07-22-2024 ambulatory Jacky Meyer Facility:[facility] Start: 07-22-2024 End: 07-22-2024 Discharged Recurring Jacky Meyer MD -Cardiac Rehab Work Phone: Start: 06-24-2024 End: 06-24-2024 Patient encounter procedure THIERRY DAVID TODDLER CAREGIVER-C -Laboratory, [place] Work Phone: Start: 06-24-2024 End: 06-24-2024 ambulatory THIERRY DAVID Facility:[facility] Start: 06-22-2024 End: 06-22-2024 Patient encounter procedure Ham Barkleyow TODDLER CAREGIVERMorenoC -Radiology, [place] Work Phone: Start: 06-22-2024 End: 06-22-2024 ambulatory Krista Schmidt Facility:[facility] Start: 06-20-2024 End: 06-24-2024 Discharged Recurring Jacky Meyer MD -Cardiac Rehab Work Phone: Start: 06-20-2024 End: 06-24-2024 ambulatory Jacky Meyer Facility:[facility] Start: 06-14-2024 End: 06-14-2024 Patient encounter procedure Jacky Meyer MD -Cardiac Rehab Work Phone: Start: 06-14-2024 End: 06-14-2024 ambulatory Jacky Meyer Facility:[facility] Start: 06-02-2024 End: 06-02-2024 Postop follow up visit related to original px Beatriz Comer PROJECT FACILITATOR-SUPERVISOR [employer]ESHING Work Phone: Web Content [employer] [facility] Comment on above: Status post cardiac surgery (Primary Dx) Start: 06-02-2024 ambulatory KRISTA SCHMIDT Facility:[facility] Start: 06-02-2024 End: 06-02-2024 Subsequent hospital visit by physician Jacky Meyer MD, PhD Work Phone: Imaging [facility] Comment on above: Arrived Start: 05-12-2024 ambulatory KRISTA A [place] Facility:[facility] Start: 05-03-2024 End: 05-03-2024 Telephone encounter Silas Pagan [place] Scheduling Comment on above: Appointment (Surgica l Follow Up) Start: 05-02-2024 ambulatory KRISTAHELENA SCHMIDT Facility:[facility] Start: 04-26-2024 End: 05-02-2024 Evaluation and management of inpatient Jacky Meyer MD, PhD Work Phone: [facility] Start: 04-20-2024 ambulatory YAW JOHNSON Facilit y:[facility] Start: 04-20-2024 End: 04-20-2024 Subsequent hospital visit by physician Yaw Johnson PROJECT FACILITATOR-SUPERVISOR [employer]ING Work Phone: [facility] [place] Comment on above: Arrived Start: 04-05-2024 ambulatory JAMAL D BOUDOULAS Facility:[facility] Start: 04-05-2024 ambulatory JAMAL Jennie ROSEUDOULAS Facility:[facility] Start: 03-29-2024 End: 03-29-2024 ambulatory JAMAL D BOUDOULAS Facility:[facility] Start: 03-29-2024 End: 03-29-2024 Subsequent hospital visit by physician Jamal Turcios MD Work Phone: [facility] Comment on above: Cardiomyopathy, unsp ecified type Start: 03-03-2024 End: 03-03-2024 Office outpatient visit 40 minutes Jamal Turcios MD Work Phone: [facility] Comment on above: PFO (patent foramen ovale) (Primary Dx); S/P patent foramen ovale closure; Cerebrovascular accident (CVA), unspecified mechanism; Essential hypertension; Hyperlipidemia, unspecified hyperlipidemia type; Cardiomyopathy, unspecified type Start: 03-03-2024 ambulatory KRISTA SCHMIDT Facility:[facility] Start: 03-03-2024 End: 03-03-2024 Subsequent hospital visit by physician Jamal Turcios MD Work Phone: [facility] Start: 12-16-2023 End: 12-16-2023 Telephone encounter Jamal Turcios MD Work Phone: [facility] Comment on above: Results Start: 12-04-2023 ambulatory JAMAL D URBANUDOULJUNIOR Facility:[facility] Start: 12-04-2023 End: 12-04-2023 Subsequent hospital visit by physician Jamal Turcios MD Work Phone: Cardi[facility] Comment on above: Arrived Start: 10-08-2023 End: 10-08-2023 Office outpatient visit 40 minutes Jamal Turcios MD Work Phone: [facility] Comment on above: PFO (patent foramen ovale) (Primary Dx); S/P patent foramen ovale closure; Essential hypertension, benign; Hyperlipidemia, unspecified hyperlipidemia type; Asymmetric septal hypertrophy; Cerebrovascular accident (CVA), unspecified mechanism Start: 10-08-2023 ambulatory KRISTA SCHMIDT Facility:[facility] Start: 09-10-2023 End: 09-10-2023 Telephone encounter Jamal Turcios MD Work Phone: [facility] Comment on above: Results Start: 09-10-2023 End: 09-10-2023 Subsequent hospital visit by physician Jamal Turcios MD Work Phone: [facility] [place] Start: 08-05-2023 End: 08-05-2023 Subsequent hospital visit by physician Jamal Turcios MD Work Phone: [facility] Comment on above: S/P percutaneous pat ent foramen ovale closure Start: 07-02-2023 End: 07-02-2023 Office outpatient visit 40 minutes Jamal Turcios MD Work Phone: [facility] [place] Comment on above: PFO (patent foramen ovale) (Primary Dx); Cerebrovascular accident (CVA), unspecified mechanism; Essential hypertension, benign; Hyperlipidemia, unspecified hyperlipidemia type Start: 06-12-2023 End: 06-12-2023 Office outpatient visit 25 minutes Marion MEYERS Work Phone: [facility] [place] Comment on above: PFO (patent foramen ovale) (Primary Dx); Cerebrovascular accident (CVA), unspecified mechanism; Essential hypertension; Mixed hyperlipidemia Start: 03-06-2023 End: 03-06-[address] Krista Schmidt Work Phone: [facility] Work Phone: Start: 03-06-2023 End: 03-06-[address] Krista Schmidt Work Phone: [facility] Start: 03-02-2023 End: 03-02-[address] Krista Schmidt Work Phone: [facility] Work Phone: Start: 03-02-2023 End: 03-02-[address] Krista Schmidt Work Phone: [facility] Work Phone: Start: 01-08-2023 End: 01-08-[address] Krista Schmidt Work Phone: [facility] Work Phone: Start: 09-29-2022 End: 09-29-2022 Office outpatient visit 40 minutes Laurie Tellez APRN-[facility] Work Phone: [facility] [place] Comment on above: Hospital discharge f ollow-up (Primary Dx); detention (current) use of antithrombotics/antiplatelets; Nihss score 1; History of stroke Start: 09-11-2022 End: 09-11-2022 Office consultation new/estab patient 80 min Jamal Turcios MD Work Phone: [facility] Comment on above: PFO (patent foramen ovale) (Primary Dx); Cerebrovascular accident (CVA), unspecified mechanism; Essential hypertension, benign; Hyperlipidemia, unspecified hyperlipidemia type Start: 07-22-2022 End: 07-25-2022 Evaluation and management of inpatient Jacob Weber MD Work Phone: [facility] Comment on above: Diabetes mellitus wi th hyperglycemia Start: 07-22-2022 End: 07-22-2022 Emergency department patient visit Dr. Krista Schmidt Work Phone: [facility] Start: 06-16-2022 End: 06-16-[address] Krista Schmidt Work Phone: [facility] Work Phone: Start: 06-16-2022 End: 06-16-[address] Krista Schmidt Work Phone: [facility] Start: 05-27-2022 End: 05-27-[address] Krista Schmidt Work Phone: [facility] Start: 01-07-2022 End: 01-07-[address] Krista Schmidt Work Phone: [facility] Start: 11-20-2021 End: 11-20-[address] Krista Schmidt Work Phone: [facility] Procedures Date Procedure Procedure Detail Performing Clinician Start: 09-08-2024 Echo tthrc r-t 2d w/wom-mode compl spec&colr d Jamal Turcios MD Work Phone: Start: 09-08-2024 Follow-up visit Follow-up EMMANUEL TURCIOS Start: 08-13-2024 Urine microalbumin/creatinine ratio measurement Dr. Krista Schmidt MD Work Phone: Start: 06-22-2024 X-ray of chest, PA a nd lateral views Dr. Kirsta Schmidt MD Work Phone: Start: 06-02-2024 Radiologic exam ches t 2 views Zafar Haynes PA-C Work Phone: Start: 05-02-2024 CARDIAC RHYTHM (SCANNED) Other Other OT Start: 05-02-2024 Radiologic exam ches t 2 views Chel Will PA-C Work Phone: Start: 05-02-2024 Glucose measurement, blood Jacky Meyer MD, PhD Work Phone: Start: 05-02-2024 Glucose measurement, blood Jacky Meyer MD, PhD Work Phone: Start: 05-02-2024 Assay of magnesium Caesar Jones MD Work Phone: Start: 05-01-2024 Glucose measurement, blood Jacky Meyer MD, PhD Work Phone: Start: 05-01-2024 Glucose measurement, blood Jacky Meyer MD, PhD Work Phone: Start: 05-01-2024 Ct thorax w/o contra st material Chel E Hites PA-C Work Phone: Start: 05-01-2024 Radiologic exam ches t single view Jacky Meyer MD, PhD Work Phone: Start: 05-01-2024 Glucose measurement, blood Jacky Meyer MD, PhD Work Phone: Start: 05-01-2024 Radiologic exam ches t single view Chel E Hites PA-C Work Phone: Start: 05-01-2024 Glucose measurement, blood Jacky Meyer MD, PhD Work Phone: Start: 05-01-2024 Assay of magnesium Caesar Jones MD Work Phone: Start: 04-30-2024 Glucose measurement, blood Jacky Meyer MD, PhD Work Phone: Start: 04-30-2024 Glucose measurement, blood Jacky Meyer MD, PhD Work Phone: Start: 04-30-2024 Glucose measurement, blood Jacky Meyer MD, PhD Work Phone: Start: 04-30-2024 Physiotherapy of chest Chel E Hites PA-C Work Phone: Start: 04-30-2024 Radiologic exam ches t single view Cammy Jones MD Work Phone: Start: 04-30-2024 Glucose measurement, blood Jacky Meyer MD, PhD Work Phone: Start: 04-30-2024 Blood count complete automated Cammy Jones MD Work Phone: Start: 04-30-2024 End: 04-30-2024 Antibody screen Jacky Meyer MD, Ph D Work Phone: Comment on above: Performed By: #### X M #### [facility] (DEFAULT) [address] [place] [address] Start: 04-30-2024 Assay of magnesium Caesar Jones MD Work Phone: Start: 04-30-2024 Blood typing serologic abo Cammy Jones MD Work Phone: Start: 04-29-2024 Glucose measurement, blood Jacky Meyer MD, PhD Work Phone: Start: 04-29-2024 Glucose measurement, blood Jacky Meyer MD, PhD Work Phone: Start: 04-29-2024 Glucose measurement, blood Jacky Meyer MD, PhD Work Phone: Start: 04-29-2024 Glucose measurement, blood Jacky Meyer MD, PhD Work Phone: Start: 04-29-2024 Radiologic exam ches t single view Cammy Jones MD Work Phone: Start: 04-29-2024 Assay of magnesium Caesar Jones MD Work Phone: Start: 04-28-2024 Glucose measurement, blood Jacky Meyer MD, PhD Work Phone: Start: 04-28-2024 Glucose measurement, blood Jacky Meyer MD, PhD Work Phone: Start: 04-28-2024 Glucose measurement, blood Jacky Meyer MD, PhD Work Phone: Start: 04-28-2024 Glucose measurement, blood Jacky Meyer MD, PhD Work Phone: Start: 04-28-2024 Radiologic exam ches t single view Cammy Jones MD Work Phone: Start: 04-28-2024 Blood count platelet automated Cammy Jones MD Work Phone: Start: 04-28-2024 End: 04-28-2024 Glucose measurement, blood Jacky rock MD, PhD Work Phone: Start: 04-28-2024 Glucose measurement, blood Jacky Meyer MD, PhD Work Phone: Start: 04-28-2024 Assay of magnesium Aksh isadora Jones MD Work Phone: Start: 04-27-2024 Glucose measurement, blood Jacky Meyer MD, PhD Work Phone: Start: 04-27-2024 Culture bct isol&prs mptv id isolate ea urine Meryl A Edgar PROJECT FACILITATOR[employer] Work Phone: Start: 04-27-2024 EXTRA MICRO Meryl A Edgar [employer] FACILITATOR[employer] Work Phone: Start: 04-27-2024 URINALYSIS REFLEX TO CULTURE Meryl A Edgar PROJECT FACILITATOR[employer] Work Phone: Start: 04-27-2024 End: 04-27-2024 Glucose measurement, blood Jacky rock MD, PhD Work Phone: Start: 04-27-2024 Glucose measurement, blood Jacky Meyer MD, PhD Work Phone: Start: 04-27-2024 Glucose measurement, blood Jacky Meyer MD, PhD Work Phone: Start: 04-27-2024 Glucose measurement, blood Jacky Meyer MD, PhD Work Phone: Start: 04-27-2024 End: 04-27-2024 Glucose measurement, blood Jacky rock MD, PhD Work Phone: Start: 04-27-2024 Glucose measurement, blood Jacky Meyer MD, PhD Work Phone: Start: 04-27-2024 Glucose measurement, blood Jacky Meyer MD, PhD Work Phone: Start: 04-27-2024 End: 04-27-2024 Glucose measurement, blood Jacky rock MD, PhD Work Phone: Start: 04-27-2024 End: 04-27-2024 Glucose measurement, blood Jacky rock MD, PhD Work Phone: Start: 04-27-2024 Assay of magnesium Caesar Jones MD Work Phone: Start: 04-27-2024 End: 04-27-2024 Glucose measurement, blood Jacky rock MD, PhD Work Phone: Start: 04-27-2024 End: 04-27-2024 Glucose measurement, blood Jacky rock MD, PhD Work Phone: Start: 04-27-2024 Radiologic exam ches t single view Cammy Jones MD Work Phone: Start: 04-27-2024 End: 04-27-2024 Glucose measurement, blood Jacky rock MD, PhD Work Phone: Start: 04-27-2024 Antibody screen Jacky salazar MD, PhD Work Phone: Start: 04-27-2024 End: 04-27-2024 Glucose measurement, blood Jacky rock MD, PhD Work Phone: Start: 04-27-2024 Blood gases any combination ph pco2 po2 co2 hco3 Cammy Jones MD Work Phone: Start: 04-27-2024 Antibody screen KRISTA NG Comment on above: Performed By: #### X M #### [facility] ([facility]) [address] [place] [address] Start: 04-27-2024 Blood typing serologic abo Cammy Jones MD Work Phone: Start: 04-27-2024 Creatine kinase total V amaya Rdz MD Work Phone: Start: 04-27-2024 End: 04-27-2024 Glucose measurement, blood Jacky rock MD, PhD Work Phone: Start: 04-27-2024 Glucose measurement, blood Jacky Meyer MD, PhD Work Phone: Start: 04-26-2024 Blood gases any combination ph pco2 po2 co2 hco3 Jacky Meyer MD, PhD Work Phone: Start: 04-26-2024 End: 04-26-2024 Glucose measurement, blood Jacky rock MD, PhD Work Phone: Start: 04-26-2024 End: 04-26-2024 Glucose measurement, blood Jacky rock MD, PhD Work Phone: Start: 04-26-2024 End: 04-26-2024 Glucose measurement, blood Jacky rock MD, PhD Work Phone: Start: 04-26-2024 Assay of magnesium Caesar Jones MD Work Phone: Start: 04-26-2024 End: 04-26-2024 Glucose measurement, blood Jacky rock MD, PhD Work Phone: Start: 04-26-2024 End: 04-26-2024 Calcium ionized Salvatore Rdz MD Work Phone: Start: 04-26-2024 Radiologic exam ches t single view Cammy Jones MD Work Phone: Start: 04-26-2024 Radiologic exam abdo men 1 view Cammy Jones MD Work Phone: Start: 04-26-2024 Glucose measurement, blood Jacky Meyer MD, PhD Work Phone: Start: 04-26-2024 End: 04-26-2024 Assay of magnesium Cammy Jones MD Work Phone: Start: 04-26-2024 Blood gases any combination ph pco2 po2 co2 hco3 Cammy Jones MD Work Phone: Start: 04-26-2024 YURIDIA AURIS SCREEN BY PCR Cammy Jones MD Work Phone: Start: 04-26-2024 End: 04-26-2024 Calcium ionized Jacky Meyer MD, PhD Work Phone: Start: 04-26-2024 End: 04-26-2024 ACTIVATED CLOTTING TIME,POC Jacky Meyer MD, PhD Work Phone: Start: 04-26-2024 End: 04-26-2024 Calcium ionized Jacky Meyer MD, PhD Work Phone: Start: 04-26-2024 End: 04-26-2024 ACTIVATED CLOTTING TIME,POC Jacky Meyer MD, PhD Work Phone: Start: 04-26-2024 ACTIVATED CLOTTING TIME,POC Jacky Meyer MD, PhD Work Phone: Start: 04-26-2024 Calcium ionized Jacky Meyer MD, PhD Work Phone: Start: 04-26-2024 End: 04-26-2024 Cabg w/arterial graft three arterial grafts Jacky Meyer MD, PhD Work Phone: Start: 04-26-2024 End: 04-26-2024 Glucose measurement, blood Jacky rock MD, PhD Work Phone: Start: 04-20-2024 Duplex scan extracra nial art compl bi study Yaw Johnson [employer] F[employer]ITATOR[employer] Work Phone: Start: 04-20-2024 End: 04-20-2024 Dup-scan uxtr art/artl bpgs uni/lmtd study Yaw Johnson [employer] FACIL[employer]ATOR[employer] Work Phone: Start: 04-20-2024 Non-invasive physiol ogic study extremity 3 levls Yaw Johnson PRO[employer] FACILITATOR[employer] Work Phone: Start: 04-05-2024 Antibody screen KRISTA SM ITH Comment on above: Performed By: #### G FLORES #### [facility] (DEFAULT) [address] [place] [id number] Start: 04-05-2024 PREPARE TO TRANSFUSE OR RED BLOOD CELLS Khalida Norman Fernandez PRO[employer] FACILITATOR[employer] Work Phone: Start: 03-29-2024 Glucose measurement, blood Jamal Turcios MD Work Phone: Start: 03-29-2024 Cath plmt l hrt & ar ts w/njx & angio img s&i Jamal Turcios MD Work Phone: Start: 03-29-2024 Cardiac catheterization Jamal Turcios MD Work Phone: Start: 03-29-2024 EXTRA LIGHT BLUE TOP Ko kotatantinos Jennie Turcios MD Work Phone: Start: 03-29-2024 EXTRA TUBES Leonid os Jennie Turcios MD Work Phone: Start: 03-29-2024 Glucose measurement, blood Jamal Turcios MD Work Phone: Start: 03-29-2024 Creatinine blood Louanno megan Stroud MD Work Phone: Start: 03-29-2024 Ecg routine ecg w/le ast 12 lds w/i&r Oma Stroud MD Work Phone: Start: 03-03-2024 Echo transthorc r-t 2d w/wo m-mode rec f-up/lmtd Jamal Turcios MD Work Phone: Start: 12-04-2023 Cardiac mri w/wo con trast & further seq Jamal Turcios MD Work Phone: Start: 12-04-2023 Blood count hematocrit Jacob S Tong DO Work Phone: Start: 09-10-2023 Echo tthrc r-t 2d w/wom-mode compl spec&colr d Jamal Turcios MD Work Phone: Start: 08-05-2023 TTE w or wo fol wcon,Doppler Jyoti Schmidt PROJECT FACILITATOR[employer] Work Phone: Start: 08-05-2023 End: 08-05-2023 ACT* LOW RANGE, POC Jamal Turcios MD Work Phone: Start: 08-05-2023 Glucose measurement, blood Jamal Turcios MD Work Phone: Start: 08-05-2023 Cardiac catheterization Jamal Turcios MD Work Phone: Start: 08-05-2023 vasc access sits vsl patency ndl entry Jamal Turcios MD Work Phone: Start: 08-05-2023 End: 08-05-2023 ACT* LOW RANGE, POC Jamal Turcios MD Work Phone: Start: 08-05-2023 Cardiac catheterization Jamal Turcios MD Work Phone: Start: 08-05-2023 Antibody screen Emmanuel Turcios MD Work Phone: Start: 08-05-2023 Glucose measurement, blood Jamal Turcios MD Work Phone: Start: 08-05-2023 Blood typing serologic abo Jamal Turcios MD Work Phone: Start: 08-05-2023 Electrolyte panel Osman Turcios MD Work Phone: Start: 08-05-2023 Ecg routine ecg w/le ast 12 lds w/i&r Jamal Turcios MD Work Phone: Start: 03-02-2023 Plain chest X-ray Dr. Aram Schmidt Work Phone: Start: 07-25-2022 Glucose measurement, blood Mariano Cee MD Work Phone: Start: 07-25-2022 Glucose measurement, blood Mariano Cee MD Work Phone: Start: 07-25-2022 Dup-scan xtr veins complete bilateral study Sivakumar Benitezeverardo FAUST Work Phone: Start: 07-25-2022 End: 07-25-2022 CONTINUOUS CARDIAC MONITORING STRIP Other Other Start: 07-25-2022 Glucose measurement, blood Mariano Cee MD Work Phone: Start: 07-25-2022 Assay of magnesium Umair A Mason PROJECT FACILITATOR[employer] Work Phone: Start: 07-25-2022 CBC AND ELECTRONIC DIFF Umair A Mason PROJECT FACILITATOR[employer] Work Phone: Start: 07-25-2022 Complete blood count with white cell differential, automated Umair A Mason PROJECT FACILITATOR-[employer] Work Phone: Start: 07-25-2022 DNA EXTRACTION, EZ1 Randi bolanos Reese Francis [facility] Work Phone: Start: 07-25-2022 MOLECULAR SUMMARY Sivakumar Reese Francis [facility] Work Phone: Start: 07-25-2022 Molecule isolate Sivakumar Reese Francis [facility] Work Phone: Start: 07-25-2022 End: 07-25-2022 Cardiolipin antibody each ig class Erika Francis [facility] Work Phone: Start: 07-24-2022 Glucose measurement, blood Mariano Cee MD Work Phone: Start: 07-24-2022 Glucose measurement, blood Mariano Cee MD Work Phone: Start: 07-24-2022 Glucose measurement, blood Mariano Cee MD Work Phone: Start: 07-24-2022 Echo transesophag r- t 2d w/prb img acquisj i&r Erika FAUST Work Phone: Start: 07-24-2022 End: 07-24-2022 CONTINUOUS CARDIAC MONITORING STRIP Other Other Start: 07-24-2022 End: 07-25-2022 Assay of magnesium Umair A Mason PROJECT FACILITATOR-CN P Work Phone: Start: 07-24-2022 CBC AND ELECTRONIC DIFF Umari A Mason PROJECT FACILITATOR[employer] Work Phone: Start: 07-24-2022 Complete blood count with white cell differential, automated Umair A Mason PROJECT FACILITATOR[employer] Work Phone: Start: 07-24-2022 Molecule isolate Erika Francis [facility] Work Phone: Start: 07-23-2022 Glucose measurement, blood Mariano Cee MD Work Phone: Start: 07-23-2022 Glucose measurement, blood Mariano Cee MD Work Phone: Start: 07-23-2022 Glucose measurement, blood Mariano Cee MD Work Phone: Start: 07-23-2022 Glucose measurement, blood Mariano Cee MD Work Phone: Start: 07-23-2022 CONTINUOUS CARDIAC MONITORING STRIP Other Other Start: 07-23-2022 Lipid 1996 panel - S lamberto or Plasma Jacob Weber MD Work Phone: Start: 07-23-2022 Mri brain brain stem w/o contrast material Umair A Mason PROJECT FACILITATOR-[employer]PER[employer] Work Phone: Start: 07-23-2022 Assay of magnesium Umair A Mason PROJECT FACILITATOR[employer] Work Phone: Start: 07-23-2022 CBC AND ELECTRONIC DIFF Umair A Mason PROJECT FACILITATOR-[employer] Work Phone: Start: 07-23-2022 Complete blood count with white cell differential, automated Umair A Mason PROJECT FACILITATOR-[employer] Work Phone: Start: 07-23-2022 Lipid panel Dacia BUCK Work Phone: Start: 07-22-2022 Glucose measurement, blood Mariano Cee MD Work Phone: Start: 07-22-2022 Ct head/brain w/o co ntrast material Umair A Mason PROJECT FACILITATOR-[employer] Work Phone: Start: 07-22-2022 ABORH TYPE RECONFIRMATION Dipesh Dennis MD Work Phone: Start: 07-22-2022 IP CONSULT TO SPEECH THERAPY Umair A Mason PROJECT FACILITATOR-[employer] Work Phone: Start: 07-22-2022 Drug tst prsmv instr mnt chem analyzers pr date Umair A Mason PROJECT FACILITATOR-[employer] Work Phone: Start: 07-22-2022 EXTRA MICRO Umair A Karol se PROJECT FACILITATOR-[employer] Work Phone: Start: 07-22-2022 Urnls dip stick/tabl et reagent auto microscopy Umair A Mason PROJECT FACILITATOR-[employer] Work Phone: Start: 07-22-2022 Urnls dip stick/tabl et rgnt auto w/o microscopy Umair A Mason PROJECT FACILITATOR-[employer]PER[employer] Work Phone: Start: 07-22-2022 Antibody screen Jacob Weber MD Work Phone: Start: 07-22-2022 CBC AND ELECTRONIC DIFF Umair A Mason PROJECT FACILITATOR-[employer]PER[employer] Work Phone: Start: 07-22-2022 Complete blood count with white cell differential, automated Umair A Mason PROJECT FACILITATOR-[employer]PER[employer] Work Phone: Start: 07-22-2022 GOLD TOP TUBE Umair A Gr ose PROJECT FACILITATOR-[employer] Work Phone: Start: 07-22-2022 Hemoglobin glycosyla tamra a1c Umair A Mason PROJECT FACILITATOR-[employer] Work Phone: Start: 07-22-2022 Hepatic function panel Umair A Mason PROJECT FACILITATOR-[employer] Work Phone: Start: 07-22-2022 LAVENDER TOP TUBE Umair A Mason PROJECT FACILITATOR[employer] Work Phone: Start: 07-22-2022 LT BLUE TOP TUBE Umair A Mason PROJECT FACILITATOR-[employer] Work Phone: Start: 07-22-2022 MINT GREEN TOP TUBE Aisha h A Mason PROJECT FACILITATOR-[employer] Work Phone: Start: 07-22-2022 RAINBOW DRAW Umair A Karol se PROJECT FACILITATOR-[employer] Work Phone: Start: 07-22-2022 Ct head/brain w/o co ntrast material Umair A Mason PROJECT FACILITATOR-[employer] Work Phone: Start: 07-22-2022 Plain chest X-ray Dr. Aram Schmidt Work Phone: Start: 07-22-2022 CT angiography of he ad and neck Dr. Krista Schmidt Work Phone: Start: 07-22-2022 CT of head without contrast Dr. Krista Schmidt Work Phone: History of coronary artery bypass grafting S/P CABG x 3 Jacky Meyer MD, PhD Work Phone: History of coronary artery bypass grafting S/P CABG x 3 Jacky Meyer MD, PhD Work Phone: History of coronary artery bypass grafting S/P CABG (coronary artery bypass graft) Jamal Turcios MD Work Phone: Plan of Treatment Date Care Activity Detail Author Start: 10-23-2027 Tetanus vaccination [facility] Start: 07-24-2027 Lipid panel LIPID SCREENING [facility] Start: 06-24-2025 Screening for malignant neoplasm of colon COLORECTAL CANCER SCREENING DISCUSSION [facility] Start: 06-15-2025 End: 06-15-2025 Patient encounter procedure 06/15/2025 10:40 AM EST Office Visit [facility] [address] [phone] Jamal Turcios MD [address] [place] [phone] [facility] Start: 05-02-2025 Finding of potassium level (finding) [facility] Start: 04-05-2025 Lipid panel [facility] Start: 01-23-2025 Influenza vaccination INFLUENZA VACCINE (Season Ended) [facility] Start: 10-03-2024 Hemoglobin A1c measurement [facility] Start: 09-29-2024 End: 09-29-2024 Patient encounter procedure 09/29/2024 10:20 AM EDT Office Visit [facility] [address] [phone] Jamal Turcios MD [address] [place] [phone] [facility] Start: 09-08-2024 End: 09-08-2024 ambulatory [facility] Start: 09-08-2024 End: 09-08-2024 Patient encounter procedure [facility] Start: 09-01-2024 End: 03-03-2025 Echocardiography ECHOCARDIOGRAM Echocardiography Routine PFO (patent foramen ovale) S/P patent foramen ovale closure Expected: 09/01/2024, Expires: 03/03/2025 [facility] Comment on above: Expected: 09/01/2024, Expires: Start: 06-14-2024 Patient referral to [facility] Start: 06-02-2024 End: 06-02-2024 ambulatory [facility] Start: 06-02-2024 End: 06-02-2024 Patient encounter procedure [facility] Start: 05-27-2024 End: 05-27-2025 XR Chest PA and Lateral XR CHEST PA AND LATERAL 2 VIEWS Imaging Routine Status post cardiac surgery Expected: 05/27/2024, Expires: 05/27/2025 [facility] Comment on above: Expected: 05/27/2024, Expires: Start: 05-12-2024 End: 05-12-2024 Patient encounter procedure 05/12/2024 2:30 PM EST Office Visit [facility] [address] [place] [phone] [facility] Start: 04-28-2024 End: 04-28-2025 XR Chest PA and Lateral [facility] Start: 04-26-2024 End: 04-26-2024 Anesthesia consultation 04/26/2024 7:00 AM EST Anesthesia Event [facility] [address] [place] [phone] Jyoti Call MD [address] [place] [phone] [facility] Start: 04-26-2024 End: 04-26-2024 Cabg w/arterial graft three arterial grafts CABG W/ ARTERY GRAFT OPEN CAD (coronary artery disease), la posta coronary artery 04/26/2024 7:00 AM EST [facility] Start: 04-26-2024 End: 04-26-2024 Evaluation and management of inpatient [facility] Comment on above: CAD (coronary artery disease), la posta co ronary artery CABG W/ ARTERY GRAFT OPEN Start: 03-03-2024 End: 03-03-2025 CBC,PLATELETS CBC,PLATELETS Lab Routine Cardiomyopathy, unspecified type Expected: 03/03/2024, Expires: 03/03/2025 [facility] Comment on above: Expected: 03/03/2024, Expires: Start: 03-03-2024 End: 03-03-2025 CHEM 6 (LYTES, BUN CREA) CHEM 6 (LYTES, BUN CREA) Lab Routine Cardiomyopathy, unspecified type Expected: 03/03/2024, Expires: 03/03/2025 [facility] Comment on above: Expected: 03/03/2024, Expires: Start: 03-03-2024 End: 10-07-2024 Echocardiography ECHOCARDIOGRAM Echocardiography Routine PFO (patent foramen ovale) S/P patent foramen ovale closure Expected: 03/03/2024, Expires: 10/07/2024 [facility] Comment on above: Expected: 03/03/2024, Expires: 5 Start: 03-03-2024 End: 03-03-2024 Patient encounter procedure [facility] Start: 01-24-2024 COVID-19 VACCINE ( season) COVID-19 VACCINE () [facility] Start: 01-24-2024 COVID-19 VACCINE () COVID-19 VACCINE () [facility] Start: 01-24-2024 Influenza vaccination [facility] Start: 01-24-2024 [facility] Start: 12-04-2023 End: 12-04-2023 Patient encounter procedure 12/04/2023 4:00 PM EDT Appointment Cardiovascular Imaging Lab [facility] [address] [place] [phone] Jamal Turcios MD [address] [place] [phone] Cardiovascular Imaging Lab [facility] Start: 10-08-2023 End: 10-08-2023 Patient encounter procedure 10/08/2023 9:20 AM EDT Office Visit [facility] [address] [facility] 2nd Floor [place] [id number] Jamal Turcios MD [address] [place] [phone] [facility] Start: 09-10-2023 End: 09-10-2023 Patient encounter procedure 09/10/2023 1:30 PM EDT Appointment [facility] [address] [place] [address] Jamal Turcios MD [address] [place] [phone] [facility] Start: 07-24-2023 Lipid panel LIPIDS [facility] Start: 07-02-2023 End: 07-02-2024 CBC,PLATELETS CBC,PLATELETS Lab Routine PFO (patent foramen ovale) Cerebrovascular accident (CVA), unspecified mechanism Expected: 07/02/2023, Expires: 07/02/2024 [facility] Comment on above: Expected: 07/02/2023, Expires: Start: 07-02-2023 End: 07-02-2024 CHEM 6 (LYTES, BUN CREA) CHEM 6 (LYTES, BUN CREA) Lab Routine PFO (patent foramen ovale) Cerebrovascular accident (CVA), unspecified mechanism Expected: 07/02/2023, Expires: 07/02/2024 [facility] Comment on above: Expected: 07/02/2023, Expires: Start: 07-02-2023 End: 07-02-2024 TYPE AND SCREEN TYPE AND SCREEN Blood Bank Routine PFO (patent foramen ovale) Cerebrovascular accident (CVA), unspecified mechanism Expected: 07/02/2023, Expires: 07/02/2024 [facility] Comment on above: Expected: 07/02/2023, Expires: Start: 07-02-2023 End: 07-02-2023 Patient encounter procedure [facility] Start: 05-13-2023 End: 05-13-2023 Patient encounter procedure 05/13/2023 Office Visit Cardiovascular Medicine Short, Marion E, PROJECT FACILITATOR-SUPERVISOR FLESHING [address] [place] [address] [facility] Start: 04-06-2023 End: 04-06-2023 Patient encounter procedure 04/06/2023 Office Visit Neurology Laurie Tellez APRN-SUPERVISOR FLESHING [address] [place] [address] [facility] Start: 01-23-2023 COVID-19 VACCINE ( season) COVID-19 VACCINE ( season) [facility] Start: 01-23-2023 Influenza vaccination INFLUENZA VACCINE (Season Ended) [facility] Start: 01-19-2023 Hemoglobin A1c measurement HBA1C TEST [facility] Start: 09-29-2022 End: 09-29-2022 Patient encounter procedure 09/29/2022 Office Visit Neurology Laurie Tellez APRN-SUPERVISOR [employer]ESHING [address] [place] [address] [facility] Start: 07-25-2022 End: 07-24-2023 Cardiac telemetry MOBILE CARDIAC TELEMETRY ECG Routine Cerebrovascular accident (CVA), unspecified mechanism Expected: 07/25/2022, Expires: 07/24/2023 [facility] Comment on above: Expected: 07/25/2022, Expires: Start: 07-22-2022 Oxygen therapy [facility] Start: 07-22-2022 [facility] Start: 01-23-2022 Influenza vaccination INFLUENZA VACCINE (#1) [facility] Start: 2020 Prostate specific antigen measurement PROSTATE CANCER SCREENING DISCUSSION [facility] Start: 2020 Zoster vaccine hzv live for subcutaneous use ZOSTER (SHINGLES) VACCINE (1 of 2) [facility] Start: 2020 [facility] Start: 08-08-2020 COVID-19 VACCINE (3 - Booster for Pfizer series) COVID-19 VACCINE (3 - Booster for Pfizer series) [facility] Start: 10-22-2018 Pneumococcal vaccination PNEUMOCOCCAL VACCINE SERIES (2 of 2 - PCV) [facility] Start: 10-22-2018 PNEUMOCOCCAL VACCINE SERIES (2 - PCV) PNEUMOCOCCAL VACCINE SERIES (2 - PCV) [facility] Start: 10-22-2018 PNEUMOCOCCAL VACCINE SERIES (2 of 2 - PCV) PNEUMOCOCCAL VACCINE SERIES (2 of 2 - PCV) [facility] Start: 10-22-2018 [facility] Start: 12-23-2015 Screening for malignant neoplasm of colon [facility] Start: 1989 Hepatitis B vaccination [facility] Start: 1985 HIV screening [facility] Start: 1970 Diabetic foot examination [facility] Start: 1970 Glaucoma screening [facility] Start: 1970 Hepatitis B vaccination HEP B VACCINE (1 of 3 - 3-dose series) [facility] Start: 1970 Hepatitis C screening [facility] Start: 1970 Urine screening for protein [facility] Cardiac catheterizat ion study INVASIVE CARDIOVASCULAR PROCEDURE Cardiac Cath Routine PFO (patent foramen ovale) Cerebrovascular accident (CVA), unspecified mechanism 08/05/2023 2:21 PM EDT [facility] Work Phone: Cardiac catheterizat ion study INVASIVE CARDIOVASCULAR PROCEDURE Cardiac Cath Routine Cardiomyopathy, unspecified type 03/29/2024 12:56 PM EST [facility] Work Phone: CARDIOLIPIN ANTIBODY , IGA CARDIOLIPIN ANTIBODY, IGA Lab Routine 07/25/2022 1:00 AM EST [facility] Cath plmt l hrt & ar ts w/njx & angio img s&i CORONARY ANGIOGRAM WITH LEFT HEART CATH Cardiomyopathy, unspecified type [facility] CATH End: 04-20-2024 CT Chest WO contrast [facility] Comment on above: 1 Occurrences starting 04/20/2024 until 04/20/2024 FACTOR V LEIDEN, TAWANNA A ENTRY FACTOR V LEIDEN, OPEN HEARTH HELPER Lab Routine 07/25/2022 1:03 AM EST [facility] FACTOR V MUTATION FA CV LEIDEN, FINAL FACTOR V MUTATION FACV LEIDEN, FINAL Lab Routine 07/25/2022 1:03 AM EST [facility] Patient referral [facility] Work Phone: PFO CLOSURE PFO CLOSURE PFO (patent foramen ovale) Cerebrovascular accident (CVA), unspecified mechanism [facility] CATH PROTHROMBIN MUTATION , FINAL PROTHROMBIN MUTATION, FINAL Lab Routine 07/25/2022 1:03 AM EST [facility] PROTHROMBIN VARIANT, OPEN HEARTH HELPER PROTHROMBIN VARIANT, OPEN HEARTH HELPER Lab Routine 07/25/2022 1:03 AM EST [facility] End: 08-05-2023 Standard ECG ECG ECG STAT One Time for 1 Occurrences starting 08/05/2023 until 08/05/2023 [facility] Comment on above: One Time for 1 Occurrences starting 07/23 until 08/05/2023 Standard ECG [facility] Standard ECG ECG ECG Routine Status post cardiac surgery 06/02/2024 2:41 PM EST [facility] SURG PATH REQUEST [facility] Immunizations Immunization Date Immunization Notes Care Provider Fa [facility] 04-17-2023 influenza virus vaccine, unspecified formulation Jamal Turcios MD Work Phone: [facility] 03-17-2019 influenza virus vaccine, unspecified formulation Jacob Weber MD Work Phone: [facility] Payers Date Payer Category Payer Self-pay [id number] 2021 Managed Care (unspecified) [facility] [id number] 2021 Unknown [id number] .[id number] 2021 Unknown [id number] 1970 Unknown [id number] 2.840.1.478892.3.579.2 .627 1970 Unknown [id number] 2.840.1.783499.3.579.2 .594 1970 Unknown [id number] 2.840.1.721659.3.579.2 .594 1970 Unknown [id number] 2.840.1.998949.3.579.2 .594 1970 Unknown [id number] 2.840.1.368448.3.579.2 .594 1970 Unknown [id number] 2.840.1.817468.3.579.2 .594 1970 Unknown [id number] 2.840.1.375460.3.579.2 .594 1970 Unknown [id number] 2.840.1.029103.3.579.2 .594 1970 Unknown [id number] 2.840.1.743004.3.579.2 .594 1970 Unknown [id number] 2.16840.1.038902.3.579.2 .594 1970 Unknown [id number] 2.16840.1.057542.3.579.2 .594 1970 Unknown [id number] .0.1.551217.3.579.2 .594 1970 Unknown [id number] .0.1.684268.3.579.2 .594 1970 Unknown [id number] .0.1.889558.3.579.2 .594 1970 Unknown [id number] .0.1.786816.3.579.2 .594 1970 Unknown [id number] .0.1.765938.3.579.2 .594 1970 Unknown [id number] ..1.398940.3.579.2 .594 1970 Unknown [id number] ..1.479614.3.579.2 .594 1970 Unknown [id number] ..1.210017.3.579.2 .594 1970 Unknown [id number] ..1.308296.3.579.2 .594 1970 Unknown [id number] .1.350649.3.579.2 .594 1969 Unknown [id number] 840.1.218916.3.579.2 .627 Private Health Insurance [id number] Private Health Insurance [id number] Private Health Insurance [id number] Unknown [facility] AL[facility] [id number] Unknown [id number] 07.10.830.1.551580.3.579.2 .462 Unknown [id number] 2.16.840.1.650885.3.579.2 .462 Unknown [id number] 2.16.840.1.091443.3.579.2 .462 Unknown [id number] 2.16.840.1.327668.3.579.2 .462 Unknown [id number] 2.16.840.1.598772.3.579.2 .462 Unknown [id number] 2.16.840.1.753745.3.579.2 .462 Unknown [id number] 2.16.840.1.456169.3.579.2 .462 Unknown [id number] 2.16.840.1.517398.3.579.2 .462 Unknown [id number] 2.16.840.1.725361.3.579.2 .462 Unknown [id number] 2.840.1.314746.3.579.2 .462 Unknown [id number] 2.16.840.1.491396.3.579.2 .462 Social History Date Type Detail Facility Start: 11-20-2021 End: 03-02-2023 Tobacco smoking status MDIS Unknown if ever smoked [facility] Start: 1970 Sex Assigned At Male [facility] Start: 07-24-2022 End: 06-14-2024 Tobacco smoking status NHIS Never smoked tobacco [facility] Start: 07-24-2022 Tobacco use and exposure Smokeless tobacco non-user [facility] Start: 07-24-2022 End: 09-08-2024 Alcohol intake Lifetime non-drinker (finding) [facility] Start: 1970 Sex Assigned At Not on file [facility] Start: 07-12-2022 End: 07-22-2022 Exposure to SARS-CoV-2 (event) Not sure [facility] Start: 06-12-2023 End: 04-27-2024 History of Social function [facility] Start: 06-12-2023 End: 04-27-2024 Tobacco use panel [facility] Start: 03-30-2024 Gender identity Identifies as male gender (finding) [facility] Start: 03-30-2024 Sexual orientation Heterosexual (gudelia sergio) [facility] Has the electric, [employer] s, oil, or water company threatened to shut off services in your home in past 12Mo No [facility] How hard is it for y ou to pay for the very basics like food, housing, medical care, and heating [facility] (I/We) worried marla er (my/our) food would run out before (I/we) got money to buy more. Never true [facility] Start: 01-03-2020 End: 08-18-2024 Sex Male (finding) [facility] Medical Equipment Procedure Code Equipment Code Equipment Origin al Text Equipment Identifier Dates USE DAILY WITH INSULIN [id number] Start: 06-17-2022 End: 07-23-2022 Lancets (OneTouc h Delica Plus [id number]) [facility] [id number] Start: 07-18-2022 End: 07-23-2022 USE STRIP TO DEIDRE CK GLUCOSE TWICE DAILY [id number] Start: 06-17-2022 End: 07-23-2022 [id number] Start: 08-05-2023 [id number] Start: 04-26-2024 Use BEFORE MEALS and at BEDTIME to test Blood Sugar. [id number] Start: 05-02-2024 End: 06-02-2024 Use BEFORE MEALS and at BEDTIMEto test Blood Glucose [id number] Start: 05-02-2024 Use new needle w ith each insulin injection. [id number] Start: 05-02-2024 End: 06-02-2024 Use new needle f or each insulin injection. [id number] Start: 05-02-2024 End: 06-02-2024 Functional Status Date Assessment Result Facility 04-26-2024 Are you deaf, or do you have serious difficulty hearing No 04/26/2024 10:00 PM Renetta Araya, HUBERT No [facility] 04-26-2024 Are you blind, or do you have serious difficulty seeing, even when wearing glasses No 04/26/2024 10:00 PM Renetta Araya, HUBERT No [facility] 04-26-2024 Do you have serious difficulty walking or climbing stairs No 04/26/2024 10:00 PM Renetta Araya, HUBERT No [facility] 04-26-2024 Do you have difficul ty dressing or bathing No 04/26/2024 10:00 PM Renetta Araya RN No [facility] 04-26-2024 Because of a physica l, mental, or emotional condition, do you have difficulty doing errands alone such as visiting a physician's office or shopping No 04/26/2024 10:00 PM Renetta Araya RN No [facility] Mental Status Date Assessment Result Facility 04-26-2024 Because of a physica l, mental, or emotional condition, do you have serious difficulty concentrating, remembering, or making decisions No 04/26/2024 10:00 PM Renetta Araya RN No [facility] 07-22-2022 Cognitive function Voice/Name [facility] Work Phone: Clinical Notes 07-22-2022 to 09-08-2024 Jamal Turcios MD - 09/08/2024 11:00 AM Nikki Palomino RN - 09/08/2024 9:00 AM Nikki Palomino RN - 09/08/2024 9:00 AM MIRA Amor - 06/02/2024 3:30 PM ESTAttachments Note Date & Type Note Facility 09-08-2024 History of Present illness Narrative Antonia Kruger is a 53 y.o. male referred by Dr Mariano Cee for evaluation for transcatheter closure of patent foramen ovale (PFO) due to concern for PFO-associated stroke (i.e., cryptogenic stroke); s/p PFO closure using a 35 mm Amplatzer PFO Occluder 08/05/23. In addition, underwent CABG 04/26/24. Presents for hospital follow-up post-CABG. In summary, the patient presented 06/2022 with left hand/leg numbness and left hand incoordination, and was diagnosed with hemorrhagic stroke. Patient was evaluated by Neurology at [facility] and on discharge summary 07/25/22 stated cardioembolic stroke with bilateral ischemic infarcts and ICH; CLARITZA with PFO; referred for PFO closure evaluation. Subsequently, underwent PFO closure using a 35 mm Amplatzer PFO Occluder 08/05/23. From his stroke had residual numbness on left pointer finger. No recurrent stroke. Since last visit underwent cardiac catheterization with subsequent CABG on 04/26/24. Tolerated and recovering from surgery. Attending cardiac rehab 3 times per week and tolerating. SBP outside of clinic mostly 110-120's mmHg. Does not experience angina, chest pain, dyspnea, LE edema, orthopnea, PND, lightheadedness, syncope or palpitations. Past Medical History: - coronary artery disease - CABG x 3 (NICE to LAD; SVG to D2 with sequential SVG RI) and ligation of left atrial appendage on 04/26/24 - stroke ischemic and intracranial hemorrhage - patent foramen ovale (PFO) - PFO closure using a 35 mm Amplatzer PFO Occluder on 08/05/23 - hypertension - hyperlipidemia - diabetes mellitus Past Social History: Social History Tobacco Use Smoking status: Never Smokeless tobacco: Never Vaping Use Vaping status: Never Used Substance Use Topics Alcohol use: Never Drug use: Never Past Family History: - Adopted at so does know family history. No children. No Known Allergies Current Outpatient Medications Medication Sig Dispense Refill Alcohol Swabs Pads Use to cleanse fingertip before each blood glucose test. 200 Each 1 Allopurinol 100 MG tablet Take 1 tablet by mouth daily. amLODIPine (Norvasc) 10 MG tablet Take 1 tablet by mouth daily. 90 tablet 3 Aspirin 325 MG tablet Take 1 tablet by mouth daily. 30 tablet 11 cyanocobalamin 100 MCG tablet Take 1 tablet by mouth daily. 30 tablet 2 Empagliflozin (Jardiance) 10 MG tablet Take 1 tablet by mouth daily. gliMEPIride 2 MG tablet Take 1 tablet by mouth daily. Glucagon (Baqsimi Two Pack) 3 MG/DOSE Powder Use as needed for severe low blood sugar (Hypoglycemia) 1 Each 1 GLUCOSE TEST STRIPS PRESCRIPTION Use BEFORE MEALS and at BEDTIMEto test Blood Glucose 150 Each 1 hydrALAZINE 10 MG tablet Take 1 tablet by mouth 3 times daily as needed for Other (BP >140/90). hydrOXYzine HCl 25 MG tablet Take 1 tablet by mouth every 6 hours as needed for Anxiety, Itching or Insomnia. 30 tablet 0 Indapamide 1.25 MG tablet Take 1 tablet by mouth daily. Lisinopril 5 MG tablet Take 1 tablet by mouth daily. (Patient taking differently: Take 1 tablet by mouth daily. 10 mg qd) 30 tablet 1 Melatonin 3 MG tablet TAKE 1 TABLET BY MOUTH NIGHTLY metFORMIN 500 MG tablet Take 2 tablets by mouth 2 times daily. Metoprolol succinate 100 MG tablet XL Take 1 tablet by mouth daily. (Patient taking differently: Take 1 tablet by mouth daily. Taking 1/2 of 25mg BID) 30 tablet 2 Multiple Vitamin (Multi-Vitamins) tablet Take 1 tablet by mouth daily. Pravastatin 40 MG tablet Take 1 tablet by mouth every evening at 6 PM. ramipril 10 MG capsule Take 1 capsule by mouth daily. Semaglutide (OZEMPIC, 0.25 OR 0.5 MG/DOSE, SC) Inject 1 Dose under the skin once a week. No current facility-administered medications for this visit. Review of Systems (ROS): ROS reviewed and negative unless otherwise stated. Physical Exam: Blood pressure (!) 166/100, pulse 70, height 1.702 m (5' 7), weight 93.4 kg (206 lb), SpO2 95%. Gen - well nourished; alert and orientated x 3, mood normal Head & Neck- normocephalic; no JVD Lungs- clear to auscultation bilateral without rales or wheezing CV- RRR without murmur or gallops Abd- non-tender; non-distended; +BS; soft; no R/G Neuro- no gross motor deficits, gait normal Extr- no edema bilateral; warm distal extremities Skin- no facial rashes Lab Results Component Value Date CREATSERUM 0.80 05/02/2024 Lab Results Component Value Date ALT 19 04/05/2024 AST 16 04/05/2024 Lab Results Component Value Date CHOLESTEROL 185 04/05/2024 CHOLESTEROL 166 07/23/2022 TRIG 111 04/27/2024 TRIG 170 (H) 04/05/2024 TRIG 179 (H) 07/23/2022 HDL 41 04/05/2024 HDL 40 07/23/2022 LDLCALC 110 (H) 04/05/2024 LDLCALC 90 07/23/2022 EC05-AUG-2023 [facility] NORMAL SINUS RHYTHM LEFT AXIS DEVIATION RIGHT BUNDLE BRANCH BLOCK LVH WITH REPOLARIZATION ABNORMALITY - personally reviewed EC02-JUN-2024 [facility] - SINUS RHYTHM WITH FREQUENT PREMATURE VENTRICULAR COMPLEXES - LEFT AXIS DEVIATION - LEFT ATRIAL ENLARGEMENT - RIGHT BUNDLE BRANCH BLOCK MINIMAL VOLTAGE CRITERIA FOR LVH, MAY BE NORMAL VARIANT ( R in aVL - INFERIOR INFARCT , AGE UNDETERMINED - personally reviewed Event Monitor: 08/05/22 - 09/03/22 - sinus rhythm. During sleep, episodes of 2:1 AV block vs blocked PACs LE Venous Duplex: 07/25/22 - Right Lower Limb: No evidence of acute deep venous thrombosis in the lower extremity. - Left Lower Limb: No evidence of acute deep venous thrombosis in the lower extremity. CT Head: 07/22/22 No significant interval change in the appearance of the right basal ganglia parenchymal hematoma when accounting for differences in head positioning. MRI Brain: 07/23/22 - Stable size of acute parenchymal hemorrhage in the right basal ganglia. No severe intracranial mass effect. - Several tiny foci of acute nonhemorrhagic infarct in both hemispheres as detailed above. - Underlying chronic ischemic changes. Transcatheter Closure of Patent Foramen Ovale (PFO): 08/05/23 1) Successful PFO closure using a 35 mm Amplatzer PFO Occluder guided by fluoroscopy and intracardiac echocardiogram. Coronary Angiogram: 1) There is a chronic total occlusion in the mid left anterior descending artery in which distally fills late by left collaterals. 2) There is severe disease in the proximal ramus intermedius artery. 3) The remaining coronary arteries have mild/moderate disease as described in detail below. Transesophageal Echocardiogram: 07/24/22 Left ventricle is normal in size and systolic function, visual EF 60-65%. Right ventricle is normal in size and systolic function. No LA, RA, or BEN thrombus visualized. Non-specific mitral valve thickening with trivial MR. No pericardial effusion is present. Grade 3 aortic atherosclerosis noted in the descending aorta. Left to right interatrial shunt suggestive of PFO noted by Bubble study and color Doppler during normal respiration. Aorta: No dilation to extent seen Transthoracic Echocardiogram: 08/05/23 S/p PFO closure with 35 mm Amplatzer PFO device on 08/05/2023. No flow is seen across the device via color doppler. Left ventricle is normal in size with normal systolic function, LVEF by biplane method 57%. Akinetic/aneurysmal apex. Asymmetric septal hypertrophy up to 1.6 cm is seen. No LVOT obstruction. Right ventricle is normal in size with normal systolic function. Valves are normal in structure. No significant valvular dysfunction. Mild left atrial enlargement. Unable to estimate RVSP due to insufficient TR jet. Given RWMA would consider LAD distribution infarction vs HOCM - Aorta: no dilation to extent seen. Transthoracic Echocardiogram: 09/10/23 Left Ventricle: Chamber size is normal. Normal wall thickness. No concentric nor eccentric hypertrophy. Normal global systolic function. Wall motion abnormality: See wall scoring diagram. Ejection fraction is low normal (50-55%). Diastolic function is normal. Right Ventricle: Chamber size is mildly enlarged. Normal wall thickness. Segmental wall motion is normal. Systolic function is normal. Left Atrium: Chamber size is normal. Aortic Valve: Trileaflet valve. Leaflet mobility is normal. No regurgitation. No stenosis. Mitral Valve: Normal appearing leaflets. Leaflet mobility is normal. No regurgitation. No valve stenosis. Tricuspid Valve: Normal leaflets. Leaflet mobility is normal. No regurgitation. No stenosis. - Aorta: No dilation to extent seen. - Adequate appearance of atrial septal closure device. No color flow evidence of residual shunting. Cardiac MRI: 12/04/23 - Apical regional LV dysfunction with distal LAD territory non-viable infarct scar suggesting an ischemic cardiomyopathy. -- - Mild MR ---- - Mild concentric LVH. LV cavity size is mildly dilated with mild systolic dysfunction. Apical septal/inferior and cap akinesis. Quantitative LVEF 48 %. - Late gadolinium enhancement imaging demonstrates apical septal/inferior and cap near transmural (50-75%) non-viable infarct scar. - RV cavity size is normal. RV systolic function is normal. Quantitative RVEF 63 %. - Interatrial septal occluder device noted. -LA cavity size is upper limits of normal. - RA cavity size is normal. - There is a trivial pericardial effusion. - Peak aortic valve velocity 1.7 m/sec. - There is mild mitral regurgitation. - There is trivial tricuspid regurgitation. - No evidence of myocardial edema/inflammation on T2 mapping. Transthoracic Echocardiogram: 03/03/24 - Limited views echo study. Frequent PVCs during the echo study. - Left ventricular chamber size is normal with mild concentric remodeling. Low normal systolic function with apical/apical septum akinesis Ejection fraction is 50%. The apex is akinetic and slightly aneurysmal. No LV thrombus. - Right ventricular chamber size is slightly enlarged with normal systolic function. - S/p PFO closure with 35 mm Amplatzer PFO device on 08/05/2023. Device is seen stable in position. No flow is seen across the device via color doppler. - No pericardial effusion. - no MR reported Transesophageal Echocardiogram: 04/26/24 (intra-operative during CABG) - LVEF 50% baseline that improved post-CABG without wall motion abnormalities - mild MR at baseline that slightly worsened post-CABG Transthoracic Echocardiogram: 09/08/24 Left Ventricle: Chamber size is normal. Normal wall thickness. No concentric nor eccentric hypertrophy. Normal global systolic function. Wall motion abnormality: See wall scoring diagram. Ejection fraction is low normal (50-55%). Diastolic function is abnormal and consistent with pseudonormalization (grade II). Right Ventricle: Chamber size is mildly enlarged. Systolic function is mildly reduced. Left Atrium: Chamber size is mildly-moderately enlarged. S/p PFO closure with 35 mm Amplatzer PFO device on 08/05/2023. Device is seen stable in position.No flow is seen across the device via color doppler. Mild TR. RVSP 20 mmHg (RAP 3 mmHg). Compared to echo 02/2024, no significant changes. - no MR - Aorta: no dilation to extent seen. Assessment and Plan: Antonia Kruger is a 53 y.o. male referred by Dr Mariano Cee for evaluation for transcatheter closure of patent foramen ovale (PFO) due to concern for PFO-associated stroke (i.e., cryptogenic stroke); s/p PFO closure using a 35 mm Amplatzer PFO Occluder 08/05/23. In addition, underwent CABG 04/26/24. Presents for hospital follow-up post-CABG. 1. Patent foramen ovale (PFO) and concern for PFO-associated stroke (i.e., cryptogenic stroke): Evaluated by Neurology and concerning for cardioembolic stroke, thus referred for PFO closure. See below. 2. PFO transcatheter closure: PFO closure using 35 mm Amplatzer PFO Occluder 08/05/23. TTEs 09/10/23 and 03/03/24 stable device, studies reviewed. Continue aspirin 81 mg daily and endocarditis prophylaxis. Follow-up TTE today 09/08/24 obtained and stable device, study reviewed. 3. Stroke: see above. Followed with Neurology, Laurie Tellez CNP. Continue taking aspirin and statin, see below. 4. Coronary artery disease: Coronary angiogram with severe LAD and RI disease, study reviewed. Subsequently, underwent CABG x 3 on 04/26/24. Recovering well. Continue cardiac rehab. 5. Hypertension: Taking lisinopril 10 mg daily and Toprol XL 100 mg daily, and hydralazine as needed followed by primary care provider (PCP). Prescription sent to pharmacy for Toprol XL, patient confirmed taking 100 mg daily. 6. Hyperlipidemia: Taking pravastatin daily though labs above reviewed and LDL elevated. Instructed patient to follow-up with PCP, as following lipids, to discuss going back atorvastatin 80 mg daily, or change to rosuvastatin 20 mg daily. Patient will discuss with PCP in upcoming appointment. 7. Left ventricular (LV) regional wall motion abnormality (RWMA) / LV systolic dysfunction: TTE 08/05/23 LVEF though akinetic/aneurysmal septum and asymmetric septal hypertrophy up to 1.6 cm. Further, TTE 09/10/23 RWMA. Thus, cardiac MRI obtained 12/04/23 with apical regional LV dysfunction (LVEF 48%) with distal left anterior descending artery territory non-viable infarct scar suggesting an ischemic cardiomyopathy; no report of hypertrophic cardiomyopathy. As a result underwent cardiac catheterization followed by CABG 04/26/24, see above. Continue lisinopril and Toprol XL. TTE obtained today (ordered) to re-assess LVEF post-CABG, LVEF 50-55%, reviewed study. 8. Mitral regurgitation (MR): Mild MR on CMR 12/04/23. TTE 09/08/24 without significant MR. Continue to follow clinically and echocardiogram as needed. documented in this encounter [facility] 09-08-2024 History of Present illness Narrative Definity Risk Screening: Explained Definity use to patient including potential side effects with emphasis on patient informing the RN/technologist if they develop any symptoms after administration. status: no Medication list reviewed. Known sensitivity to Perflutren or Polyethylene Glycol (PEG-containing products such as bowel preparations or laxatives): no Definity dose: 1.5 ml diluted with 8.5 ml saline (start with 1-2 ml, additional doses as needed) Total dose given: 2 mL After administration of Definity contrast, the patient experienced no side effects and was without complaints. IV removed and intact. Adequate hemostasis achieved. Purpose of Bubble contrast study explained to patient. IV placed as a saline lock. Sodium chloride 0.9% agitated flush given at rest and with valsalva. IV removed after Echo images obtained without incident. Patient tolerated IV insertion, agitated saline infusions and the removal of the IV without incident. documented in this encounter [facility] 06-02-2024 History of Present illness Narrative Antonia Kruger is a 53 y.o. male who presents for follow up evaluation. He underwent the following surgery: DATE OF SURGERY: 04/26/24 PROCEDURE: CABG x 3 (NICE-LAD, [id number]) , LAAYAZ SURGEON: Dr. Jacky Meyer Hospital course was notable for significant atelectasis in left lower lobe which was evaluated by CT scan on 05/01 which confirmed no infiltrates c/f pneumonia. Management with pulmonary toilet, IS, and continue to encourage patient to sleep with his CPAP. For his diabetes, he resumed his prior to admission medications and will also started on insulin lispro correction and glargine 28 QAM. Blood sugar checks:100-150. He has followed up with an Academic Affairs Assistant. Sent Keflex TID for 7 days for LLE cellulitis around SVG site last month. He states he is going up and down the stairs and around his house all day with no issues. The patient denies complaints of SOB, palpitations, or chest pain. The patient is sleeping well, and his appetite is good. PCP Dr. Schmidt Cardiology Dr. Turcios Cardiac rehab [facility] Review of Systems - General ROS: negative for - chills, fatigue, fever, night sweats or sleep disturbance. All other systems reported negative for HEENT, Cardiac, pulmonary, GI, , musculoskeletal, and integumentary. On examination the patient's vital signs are as follows: BP 140/65 (BP Location: Left arm, BP Position: Sitting) Pulse 60 Temp 98.1 F (36.7 C) (Oral) Resp 20 Ht 1.702 m (5' 7) Wt 94.6 kg (208 lb 9.6 oz) SpO2 98% BMI 32.67 kg/m Smoking Status Never . General appearance: Alert and oriented x 3, cooperative, and in no acute distress. Lungs: Excursion symmetrical and without distress. Bilateral lung sounds are clear to auscultation. Chest wall: Well-healed sternal incision, no erythema or drainage Heart: regular rate and rhythm, no murmurs appreciated Extremities: pink, warm, dry without edema. Vein graft harvest site: left svg site, mild erythema, dry, no swelling or drainage. EK06/02/2024 NSR 90 bpm, QTC 508 CXR:06/02/2024 Stable on review NYHA: I CCS: No angina Assessment/Plan: The patient was evaluated by the cardiothoracic nurse practitioner and medications were reviewed. -Medications: no changes -Cardiac Rehab: The patient was encouraged to participate in cardiac rehabilitation. Rehab will take place at [facility]. 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 -Sternal precautions will be lifted as of the 6-week post-operative time alonzo. At that time he can slowly return to normal activity, with no lifting >20 lbs until 12 weeks post-op. The patient was discharged from cardiothoracic surgery. The patient will follow up with PCP and Valve Mechanic after today's visit. If there are ever any concerns regarding the patients surgery or surgical incisions, please contact our office at [phone]. Sincerely, MIRA Verduzco Cardiac Surgery [facility] documented in this encounter [facility] 06-02-2024 Instructions Marion Timmons RN - 06/02/2024 3:30 PM EST Thank you for choosing [facility] Division of Cardiac Surgery for your cardiac surgical needs. At this time, you are being discharged from the care of Dr. Jacky Meyer MD. You should continue to follow-up with your Valve Mechanic and your Primary Care physician for further medication refills and health care questions. Please call our office if you have any concerns or questions in relation to your incision site at [phone]. In regards to your medications that were reviewed at your visit today, please make the following changes: none As you continue the healing process, please adhere to the following: We encourage you to participate in cardiac rehab at this time. If you have not received a call from your local cardiac rehab facility, please give them a call to set this up. Your restrictions are being lifted as of the 6 week post-op alonzo and you may begin to drive at the 6 week post-op alonzo as long as you are no longer taking prescription pain medications. Please make sure you have someone with you in the car the first time you drive following surgery. Remember: The healing process takes time, as your increase your activity, go slow and if it hurts then stop and reevaluate the activity you are doing. documented in this encounter [facility] 05-11-2024 Telephone encounter Note Called pt. All questions answered. No additional questions from pt or spouse at this time. [facility] 05-11-2024 Miscellaneous Notes Called pt. All questions answered. No additional questions from pt or spouse at this time. Cardio (non-symptom) Message Provider: Jamal Turcios MD Subject of call: Sooner appt Reason for call: Patient's called in requesting to speak with a nurse to discuss him getting scheduled for an appt in Jun 2024 Preferred call back time: Anytime Looks like pt is scheduled 06/02/2024 with [facility] CAREGIVER for follow up Cardio (non-symptom) Message Provider: Dr. Turcios Subject of call: Surgical Follow Up Reason for call: Pt's called to schedule follow up with Dr. Turcios. Just discharged. The next available with Dr. Turcios is end june. Should be seen the week of 06-13-2024. wanted it noted that they live 1.5 hrs away. He underwent the following surgery: DATE OF SURGERY: 04/26/24 PROCEDURE: CABG x 3 (NICE-LAD, [id number]) , LAAL SURGEON: Dr. Jacky Meyer -- Jamal Turcios MD [address] [place] [phone] Schedule an appointment as soon as possible for a visit in 6 week(s) Preferred call back time: Any time on pt or #. Ok to lvm on either. documented in this encounter [facility] 05-11-2024 Telephone encounter Note Cardio (non-symptom) Message Provider: Jamal Turcios MD Subject of call: Sooner appt Reason for call: Patient's called in requesting to speak with a nurse to discuss him getting scheduled for an appt in Jun 2024 Preferred call back time: Anytime [facility] 05-03-2024 Telephone encounter Note Looks like pt is scheduled 06/02/2024 with [facility] CAREGIVER for follow up [facility] 05-03-2024 Telephone encounter Note Cardio (non-symptom) Message Provider: Dr. Turcios Subject of call: Surgical Follow Up Reason for call: Pt's called to schedule follow up with Dr. Turcios. Just discharged. The next available with Dr. Turcios is end of June. Should be seen the week of 06-13-2024. wanted it noted that they live 1.5 hrs away. He underwent the following surgery: DATE OF SURGERY: 04/26/24 PROCEDURE: CABG x 3 (NICE-LAD, [id number]) , LAAL SURGEON: Dr. Jacky Meyer -- Jamal Turcios MD [address] [place] [phone] Schedule an appointment as soon as possible for a visit in 6 week(s) Preferred call back time: Any time on pt or #. Ok to lvm on either. [facility] 05-02-2024 Miscellaneous Notes YU, AVS, Discharge Summary faxed to [facility]. AVS reviewed with pt and spouse. All questions and concerns answered. Pt verbalises understanding. Pt discharged via discharge suite. Problem: PT - General Goals Goal: Supine <-> Sit Transfers - Patient will perform supine to/from sit transfers with independence and without use of hospital bed features in order to improve functional mobility and safety. Outcome: Ongoing Goal: Sit <-> Stand Transfers - Patient will perform sit to/from stand transfers with independence and without an assistive device in order to improve functional mobility and safety. Outcome: Progressing Goal: Ambulation - Patient will ambulate 150 feet with independence and least restrictive device to improve ability to safely navigate home and community. Outcome: Progressing Problem: Adult Inpatient Plan of Care Goal: Plan of Care Review Outcome: Progressing Goal: Patient-Specific Goal (Individualized) Outcome: Progressing Goal: Absence of Hospital-Acquired Illness or Injury Outcome: Progressing Goal: Optimal Comfort and Wellbeing Outcome: Progressing Goal: Readiness for Transition of Care Outcome: Progressing Problem: CABG/Valve (Adult) Goal: Signs and Symptoms of Listed Potential Problems Will be Absent or Manageable Description: Signs and symptoms of listed potential problems will be absent or manageable by discharge/transition of care. Outcome: Progressing Goal: Fluid Balance Description: Patient will demonstrate the desired outcomes by discharge/transition of care. Outcome: Progressing Problem: Swallowing Impairment Goal: Optimal Eating/Swallowing without Aspiration Outcome: Progressing Procedure: Chest Tube Removal Performed by: Tomasa Richmond RN Chest Tube Removed: left pleural Indications: Chest Tube: Overall drainage of the tube is less than 200 mL over 24 hours or decreasing volumes with less than 75 mL in the last 8 hours/vitals check THANH Drain: Overall drainage of the tube is less than 15mL for 2 shifts Pre-Procedure Details: If nurse performing procedure, is the order in the chart: yes Procedure Details: Procedure was reviewed with the patient. Questions were answered and patient was given time to address concerns. Chest tube(s) were confirmed on water seal Patient was placed in a supine position. Bandages and stabilizing suture(s) were removed. Chest tube(s) clamped Patient provided negative pressure and chest tube(s) was removed in a garcia, quick motion. Occlusive Tegaderm and gauze dressing was applied over the chest tube site(s). No bleeding noted. Aseptic Technique was used throughout the procedure. The patient tolerated the procedure well. No complications were identified. Post-Procedure Details: JANEL notified of procedure completion. Portable chest X-ray is ordered and is pending. Tomasa Richmond RN Cardiovascular Step-Down Unit RN Problem: Adult Inpatient Plan of Care Goal: Plan of Care Review Outcome: Progressing Goal: Patient-Specific Goal (Individualized) Outcome: Progressing Goal: Absence of Hospital-Acquired Illness or Injury Outcome: Progressing Goal: Optimal Comfort and Wellbeing Outcome: Progressing Goal: Readiness for Transition of Care Outcome: Progressing Problem: CABG/Valve (Adult) Goal: Signs and Symptoms of Listed Potential Problems Will be Absent or Manageable Description: Signs and symptoms of listed potential problems will be absent or manageable by discharge/transition of care. Outcome: Progressing Goal: Fluid Balance Description: Patient will demonstrate the desired outcomes by discharge/transition of care. Outcome: Progressing Problem: Adult Inpatient Plan of Care Goal: Plan of Care Review Outcome: Progressing Goal: Patient-Specific Goal (Individualized) Outcome: Progressing Goal: Absence of Hospital-Acquired Illness or Injury Outcome: Progressing Goal: Optimal Comfort and Wellbeing Outcome: Progressing Goal: Readiness for Transition of Care Outcome: Progressing Problem: CABG/Valve (Adult) Goal: Signs and Symptoms of Listed Potential Problems Will be Absent or Manageable Description: Signs and symptoms of listed potential problems will be absent or manageable by discharge/transition of care. Outcome: Progressing Goal: Fluid Balance Description: Patient will demonstrate the desired outcomes by discharge/transition of care. Outcome: Progressing Problem: Swallowing Impairment Goal: Optimal Eating/Swallowing without Aspiration Outcome: Progressing Problem: Adult Inpatient Plan of Care Goal: Plan of Care Review Outcome: Progressing Goal: Patient-Specific Goal (Individualized) Outcome: Progressing Goal: Absence of Hospital-Acquired Illness or Injury Outcome: Progressing Goal: Optimal Comfort and Wellbeing Outcome: Progressing Goal: Readiness for Transition of Care Outcome: Progressing Problem: CABG/Valve (Adult) Goal: Signs and Symptoms of Listed Potential Problems Will be Absent or Manageable Description: Signs and symptoms of listed potential problems will be absent or manageable by discharge/transition of care. Outcome: Progressing Goal: Fluid Balance Description: Patient will demonstrate the desired outcomes by discharge/transition of care. Outcome: Progressing Problem: Swallowing Impairment Goal: Optimal Eating/Swallowing without Aspiration Outcome: Progressing Problem: PT - General Goals Goal: Supine <-> Sit Transfers - Patient will perform supine to/from sit transfers with independence and without use of hospital bed features in order to improve functional mobility and safety. Outcome: Ongoing Goal: Sit <-> Stand Transfers - Patient will perform sit to/from stand transfers with independence and without an assistive device in order to improve functional mobility and safety. Outcome: Ongoing Goal: Ambulation - Patient will ambulate 150 feet with independence and least restrictive device to improve ability to safely navigate home and community. Outcome: Ongoing Problem: OT - ADLs Goal: Lower Body Dressing - Patient will complete lower body dressing tasks with independence using adaptive equipment/compensatory strategies as needed for improved ability to complete self-care activities. Outcome: Progressing Goal: Toileting - Patient will complete toileting task with independence and adaptive equipment as needed for improved ability to safely complete self-care activities. Outcome: Progressing Goal: Bathing - Patient will perform full body bathing routine with modified independence while seated for improved ability to complete self-care activities Outcome: Progressing Problem: OT - Transfers Goal: Transfers Toilet/ Bedside Commode - Patient will transfer to/from toilet/bedside commode with independence for improved ability to safely complete ADLs. Outcome: Progressing Problem: OT - Other Goal: Precaution Adherence - Patient will demonstrate 100% adherence to precautions during all ADLs and functional transfers to promote safety during daily routine. Outcome: Progressing On admission to , from a dual RN initial assessment of skin condition was performed by Renetta Mayen RN and Gabrielle Le RN. Skin Assessment: Skin not within defined limits. LDAs already in flowsheets Rajan Score: 19 LDA Added:No Renetta Mayen RN Transferred to 5 [address] per wheelchair with MONUMENT SETTER HELPER and pt family member Pt tolerated well Problem: OT - ADLs Goal: Lower Body Dressing - Patient will complete lower body dressing tasks with independence using adaptive equipment/compensatory strategies as needed for improved ability to complete self-care activities. Outcome: Progressing Goal: Grooming - Patient will complete grooming in standing with independence for improved ability to safely complete ADLs. Outcome: Progressing Goal: Toileting - Patient will complete toileting task with independence and adaptive equipment as needed for improved ability to safely complete self-care activities. Outcome: Progressing Problem: OT - Transfers Goal: Transfers Toilet/ Bedside Commode - Patient will transfer to/from toilet/bedside commode with independence for improved ability to safely complete ADLs. Outcome: Progressing Problem: OT - Endurance Goal: Endurance Functional Mobility - Patient will complete distance needed for limited community mobility with no rest breaks for improved tolerance to safely complete I/ADL's Outcome: Progressing Problem: OT - Other Goal: Precaution Adherence - Patient will demonstrate 100% adherence to precautions during all ADLs and functional transfers to promote safety during daily routine. Outcome: Progressing Procedure: Chest Tube Removal Performed by: Carlotta Hager RN Chest Tube Removed: mediastinal (#1 and 2) Indications: Chest Tube: Overall drainage of the tube is less than 200 mL over 24 hours or decreasing volumes with less than 75 mL in the last 8 hours/vitals check THANH Drain: Overall drainage of the tube is less than 15mL for 2 shifts Pre-Procedure Details: If nurse performing procedure, is the order in the chart: yes Procedure Details: Procedure was reviewed with the patient. Questions were answered and patient was given time to address concerns. Chest tube(s) were confirmed on water seal Patient was placed in a supine position. Bandages and stabilizing suture(s) were removed. Chest tube(s) clamped Patient provided negative pressure and chest tube(s) was removed in a garcia, quick motion. Occlusive Tegaderm and gauze dressing was applied over the chest tube site(s). No bleeding noted. Aseptic Technique was used throughout the procedure. The patient tolerated the procedure well. No complications were identified. Post-Procedure Details: JANEL notified of procedure completion. Carlotta Hager RN METAL BURNISHER Cardiac Surgery Epicardial Wire Removal Procedure: ventricular pacer wire(s) removed Performed by: Radha Tran RN Indications: Not requiring pacing Order to remove. Pre-Procedure Details: INR (Within the last 24 hours): 1.3 IV anticoagulation: not on IV anticoagulation If nurse performing procedure, order in chart: yes Procedure Details: Wire Removal: Procedure was reviewed with the patient. Questions were answered and patient was given time to address concerns. Patient was placed in a supine position. Bandages were removed and stabilizing suture(s) were removed. Wires were removed gently in a single motion. No bleeding noted. Aseptic Technique was used throughout the procedure. The patient tolerated the procedure well. No complications were identified. Post-Procedure: Bedrest for 1 hour. Vital signs per protocol - q 15 minutes for 1 hour and then q 30 minutes for 1 hour. JANEL notified of procedure completion. IV anticoagulation: n/a Radha Tran RN METAL BURNISHER Problem: PT - General Goals Goal: Supine <-> Sit Transfers - Patient will perform supine to/from sit transfers with independence and without use of hospital bed features in order to improve functional mobility and safety. Outcome: Progressing Goal: Sit <-> Stand Transfers - Patient will perform sit to/from stand transfers with independence and without an assistive device in order to improve functional mobility and safety. Outcome: Progressing Goal: Ambulation - Patient will ambulate 150 feet with independence and least restrictive device to improve ability to safely navigate home and community. Outcome: Progressing Problem: OT - ADLs Goal: Lower Body Dressing - Patient will complete lower body dressing tasks with independence using adaptive equipment/compensatory strategies as needed for improved ability to complete self-care activities. Outcome: Ongoing Goal: Grooming - Patient will complete grooming in standing with independence for improved ability to safely complete ADLs. Outcome: Ongoing Goal: Toileting - Patient will complete toileting task with independence and adaptive equipment as needed for improved ability to safely complete self-care activities. Outcome: Ongoing Goal: Bathing - Patient will perform full body bathing routine with modified independence while seated for improved ability to complete self-care activities Outcome: Ongoing Problem: OT - Transfers Goal: Transfers Toilet/ Bedside Commode - Patient will transfer to/from toilet/bedside commode with independence for improved ability to safely complete ADLs. Outcome: Ongoing Problem: OT - Endurance Goal: Endurance Functional Mobility - Patient will complete distance needed for limited community mobility with no rest breaks for improved tolerance to safely complete I/ADL's Outcome: Ongoing Problem: OT - Other Goal: Precaution Adherence - Patient will demonstrate 100% adherence to precautions during all ADLs and functional transfers to promote safety during daily routine. Outcome: Ongoing Cardiac Surgery Postop Plan of Care Wires Ventricular - pull Tubes (right to left of patient) 1. Mediastinal basilar curved chest tube 2. Mediastinal straight chest tube 3. Left pleural basilar curved chest tube Anticoagulation/Antiplatelets: ASA only Other - nitroglycerin x 24h Ammu Abel Jones MD Cardiothoracic Surgery [phone] Antonia Kruger ([id number]) PRE OPERATIVE DIAGNOSIS CAD (coronary artery disease), la posta coronary artery [I25.10] POST OPERATIVE DIAGNOSIS CAD (coronary artery disease), la posta coronary artery [I25.10] PROCEDURE PERFORMED Procedure(s) (LRB): CABG W/ ARTERY GRAFT OPEN (Midline) EXCLUSION LEFT ATRIAL APPENDAGE OPEN (Midline) PRIMARY CLOSURE Yes INTRAOPERATIVE FINDINGS CABG x 3 (NICE-LAD, [id number]) , LAAL SURGEON Surgeons and Role: * Jacky Meyer MD, PhD - Primary ANESTHESIOLOGIST Anesthesiologist: Leodan King MD Jointer Operator Assisting: Ulises Dunbar MD Graphic Coordinator: Erick Turner SURGICAL STAFF Cook Helper: Lauren Samuels RN; Chel Lindsey, RN Registered Nurse Ict Support And Test Engineers: Juan Acevedo RN; Eric Davila RN Relief Cook Helper: Jeremy Strong, RN; Sajan Dodd, HUBERT Resident Assisting: Cammy Ma MD Windows Admin: Madeleine Eid COMPLICATIONS None ESTIMATED BLOOD LOSS Unable to estimate due to cardiopulmonary bypass SPECIMENS Cytology specimen sent ID Type Source Tests Collected by Time Destination 1 : Left atrial appendage Permanent SURG PATH SURG PATH REQUEST Jacky Meyer MD, PhD 04/26/2024 1010 Cammy Jones MD April 26, 2024 12:09 PM Operative Report DATE PERFORMED: 04/26/2024 PREOPERATIVE DIAGNOSIS: Coronary artery disease. POSTOPERATIVE DIAGNOSIS: Coronary artery disease. PROCEDURE: 1. Coronary artery bypass graft x3 with left internal mammary artery to left anterior descending artery and reverse saphenous vein graft sequence to 2nd diagonal branch and ramus intermedius. 2. Endoscopic recovery of left greater saphenous vein. 3. On pump cardiopulmonary oxygenator. 4. Ligation of left atrial appendage. SURGEON(S): Jacky Meyer MD, PhD. FIELD COIL WINDER: 1. Alta Jones MD. 2. PHILOMENA Lee. DESCRIPTION OF PROCEDURE: After discussion of indications, risks, and alternatives were explained, informed consent was obtained. Mr. Kruger was taken to the operating theater and was placed in supine position. After having general endotracheal anesthesia administered by a cardiac anesthesiologist and appropriate perioperative monitoring, his neck, chest, groins, and legs were scrubbed, prepped, and draped in the usual sterile fashion. After a pause for patient and procedure identification was performed and completed, and after receiving appropriate preoperative antibiotics. A median sternotomy was made in a standard fashion. Electrocautery and bone wax were used for hemostasis. Left manolo-sternum was elevated. Left internal mammary artery was mobilized at the origin below the costal margin. Electrocautery and Ligaclip were used for hemostasis. The left pleura was entered intentionally. Concurrent to this, the left greater saphenous vein was procured using standard aseptic technique. Once mobilized and brought outside the body, retrograde cannulated and flushed, branches were secured with Ligaclip and/or suture and At the end of the procedure the leg incisions were closed in multiple layers of absorbable suture. After conduit was obtained, systemic heparin was given. The distal portion of the mammary artery was transected, spatulated, and made hemostatic with a mahoney occluder. A regular sternal retractor was introduced, sternum was spread. Pericardium incised in the diaphragm. The innominate vein with lateral extensions was retracted with pericardial stay stitches. Standard aortic and dual-stage venous cannulation was performed as well as ascending aortic root vent. After appropriate ACT, cardiopulmonary bypass was initiated and full flows achieved, respirations were achieved, respirations ceased and aortic cross-clamp was introduced. Antegrade cardioplegia was given. A prompt arrest was achieved. Myocardial protection was facilitated with ice-cold portion given to the anterior surface of the heart, as well as mild systemic cooling. After cardioplegia was given, left atrial appendage was transected and removed the back vein first with the cutting stapler and passed off the field as specimen. We exposed the anterior wall. A 2nd diagonal branch and ramus intermedius were identified opted to sequence the diagonal into the ramus intermedius and the diagonal was incised, probed proximally and distally. The vein was anastomosed in a [id number] fashion using running Prolene suture. Prior to the anastomosis, toe and heel were probed with milimeter probe to ensure patency. Antegrade cardioplegia was given down the vein graft, ensuring good flow and hemostasis we gave antegrade cardioplegia. We identifies the ramus intermedius distally. It was incised and probed proximally and distally and the vein was anastomosed in a [id number] fashion with running 7-0 Prolene suture. The distal portion of the graft was clipped and trimmed to appropriate length. Antegrade cardioplegia down the vein demonstrated good flow and hemostasis. We confirmed flow between the 2 anastomoses with MiraQ flow probe. Antegrade cardioplegia was given down the root. The anterior wall was then exposed. The mid LAD was incised, probed proximally and distally. Left internal mammary artery was anastomosed in end-to-side fashion using a running 7-[place] suture. Prior to the anastomosis completion, it was probed for patency. Aortic root was distended. Aortotomy was made, punched 4 mm in diameter. The vein was cut to appropriate length, anastomosed end-to-side fashion. Proximal marking washers was placed. Aortic cross-clamp was removed with de-airing through the root vent. The vein graft was de-aired. Mahoney occluders were removed, ensuring good hemostasis. Patency was confirmed with MiraQ flow probe. Epicardial pacing wires were placed. Respirations were resumed and we weaned from bypass with good hemostasis, venous cannula was removed. After appropriate de-airing the root vent was then removed. Confirmed flow with MiraQ flow probe. Protamine sulfate was administered and after cardiotomy blood returned, the aortic cannula was removed and oversewn per routine. The anterior mediastinum was copiously irrigated. Mediastinal and pleural chest tubes were placed. Sternum was reapproximated with interrupted sternal wires. Multiple layers of absorbable sutures were placed. Sterile dressing was applied and then Mr. Kruger was transferred to the cardiac intensive care unit. Cardiopulmonary bypass time was 82 minutes. Cross-clamp time was 65 minutes. Flow in the NICE to LAD was 72 cc per minute with a PI of 2.9, flow in the sequence the vein graft was 93 cc per minute with a PI of 2.1 between the grafts and the jump was 55 3 per minute. Dictated By: Jacky Meyer MD, PHD Jacky Meyer MD, PHD ATTENDING SHAKEEL/Cory JOB: [id number] DOC: [id number] documented in this encounter [facility] 05-02-2024 History of Present illness Narrative Final Discharge Planning and Transportation Final Discharge Planning Discharge Disposition: Home with Home Health Services at Discharge: Shelter, Occupational Therapy, Physical Therapy Selected Continued Care - Admitted Since 04/26/2024 Home Medical Care Coordination complete. Service Provider Selected Services Address Phone Fax Patient Preferred HOME HEALTH SERVICES [facility] Home Health Services [address] [place] [address], [facility], [facility] [id number] -- Community Agency Name(s) For Handoff: [facility] Phone For Handoff: [phone] Fax For Handoff: [phone] Plan Plan: Patient is discharging home with home health services and family assistance Patient/Family In Agreement With Plan: yes Transportation Transport Request Mode of Transfer: Private Vehicle Mya FINLEY Clinical Diabetes Nurse I am a Float Clinical Diabetes Nurse please refer to the Treatment Team for the regularly assigned piano case maker Acute Physical Therapy Treatment Prior Gross Functional Mobility: independent Current AM-PAC score(s): CURRENT AM-PAC Mobility Raw Score: 20 Based on the above AM-PAC score(s) and PT clinical judgment, patient is a good candidate for discharge to (Hoepful progression to home with HH. Pt mobility limited due to fatigue this date) Mobility equipment available at home: lift chair, straight cane, rollator ADL equipment available at home: none Equipment needed for discharge: shower chair Current therapy frequency recommendation in acute: PT Therapy Frequency: 3 times a week Precautions and Weightbearing Status: Existing Precautions/Restrictions: cardiac, fall, standard sternal Telemetry Patient Safety Communication Prior to Visit: Nursing Subjective: Pt finishing use of the bathroom upon PT entry, eager to ambulate and trial stairs Pain: General Pain Documentation (Adult, OB, Peds) Presence of Pain: denies pain/discomfort Presence of Pain Score (Auto-calculated): 0 Objective/Observation: Vitals/Vitals Responses to Treatment: VSS O2 Device: room air Cognition Overall Cognitive Status: Within Functional Limits Arousal/Alertness: Appropriate responses to stimuli Orientation Level: Oriented X4 Following Commands: Follows all commands and directions without difficulty Safety Judgment: Good awareness of safety precautions Cognition Comments: Pt demonstrates appropriate recall and application of all precautions Extremity Assessments: See PT Evaluation flowsheet for Extremity Measurement updates. Skin and Edema: Balance: Sitting Balance Static Sitting-Level of Assistance: Independent Dynamic Sitting-Level of Assistance: Supervision Standing Balance Static Standing-Level of Assistance: Supervision Dynamic Standing-Level of Assistance: Stand-by assist Standing-Balance Support: Rollator Skilled Rationale: Verbal cues, Full extension to upright positioning/posture, Technique of activity, Breathing strategies Standing Balance Skilled Intervention/Details: Verbal cues provided for pursed lip breathing throughout standing activity to allow for increased activity tolerance Mobility Assessment/Intervention: Rolling/Turning Mobility [place] Level: Rolling/Turning: not tested Scooting Bridging Mobility [place] Level: Scooting/Bridging: not tested Supine to Sit Mobility [place] Level: Supine->Sit: not tested Sit to Supine Mobility [place] Level: Sit->Supine: not tested Transfer Assessment/Intervention: Sit to Stand Transfer [place] Level: Sit->Stand: stand-by assist Skilled Rationale: Sequencing, Verbal cues, Full extension to upright positioning/posture, Technique of activity, Initiation and execution of task Skilled Intervention/Details: Sit->Stand: x1 from commode, x1 from bedside chair Stand to Sit Transfer [place] Level: Stand->Sit: supervision Skilled Rationale: Sequencing, Hand placement, Verbal cues, Controlled descent for sitting Skilled Intervention/Details: Stand->Sit: x2 into recliner Bed-Chair Transfer [place] Level: Bed<->Chair: not tested Gait/Functional Mobility Assessment/Intervention: Gait Assessment [place] Level: Gait: stand-by assist Assistive Device: Gait: rollator Ambulation Distance (Feet): 400 Gait Deviations Identified: decreased debra Gait Skilled Rationale: verbal, proximity of assistive device Skilled Intervention/Details - Gait: minor verbal cues provided for positional awareness in relation to the rollator. Good carryover demonstrated Stairs Assessment/Intervention: Stairs Assessment [place] Level: Stair Negotiation: stand-by assist Assistive Device: Stair Negotiation: left rail (ascending) Number of stairs: 10 Stairs Skilled Rationale: verbal, demonstration, nonreciprocal pattern Skilled Intervention/Details - Stairs: PT provided initial demonstration of appropriate sequencing for step-to pattern and pt returned demonstration appropriately Outcome Score(s): CURRENT [facility] Basic Mobility Inpatient Short Form Turning over in bed: 4 - No Assistance Moving from lying on back to sittin - No Assistance Moving to and from bed to chair: 3 - A Little Assistance Sitting/standing from chair: 3 - A Little Assistance Walk in hospital room: 3 - A Little Assistance Climbing 3-5 steps with a railin - A Little Assistance CURRENT [facility] Mobility Raw Score: 20 CURRENT [facility] Mobility Functional Limitation: 35.83% Impaired in Basic Mobility Interventions: Intervention 1 Intervention Name: HEP Sets/Reps/Duration: ~6 minutes Details: Reviewed seated and standing LE ther ex, energy conservation techniques. Handouts provided and pt and spouse state their understanding Assessment & Plan: Pt demonstrates improved transfer independence, ambulation distance, stair negotiation and precaution application. Pt will continue to benefit from ongoing PT services throughout admission to allow him to return to his highest practical level Patient Instruction/Education this session: Learners: Patient, Spouse Education provided: Activity outside of therapy, Discharge recommendations, Energy conservation strategies, Functional transfers, Home exercise program, Plan of care Teaching method: Demonstration, Verbal Education/Instruction Learner response: States/Identifies/Teaches back Plan for next session: progress ambulation independence and quality as able Acute PT Goals Plan of Care by Joselito Marino PT at 05/02/2024 12:33 PM Version 1 of 1 Problem: PT - General Goals Goal: Supine <-> Sit Transfers - Patient will perform supine to/from sit transfers with independence and without use of hospital bed features in order to improve functional mobility and safety. Outcome: Ongoing Goal: Sit <-> Stand Transfers - Patient will perform sit to/from stand transfers with independence and without an assistive device in order to improve functional mobility and safety. Outcome: Progressing Goal: Ambulation - Patient will ambulate 150 feet with independence and least restrictive device to improve ability to safely navigate home and community. Outcome: Progressing PT treatment consisted of the following to progress towards the above goal(s): PT Evaluation and Treatment Time Therapeutic Exercise Time Entry: 6 Therapeutic Activity Time Entry: 8 Gait Training Time Entry: 12 Treating Therapist: Joseilto Marino PT Additional Details: PT Co-Eval/Treatment Information Co-evaluation/co-treatment performed?: No simultaneous skilled care performed PPE used during patient interaction: gloves Patient location at end of session: chair, RN aware Alarms on at end of session: none Needs in reach. Time In: 1107 Time Out: 1133 Total Visit Time: 26 minutes Total Treatment Time (skilled, billable minutes): 26 minutes Upon discontinuation of Acute Care Physical Therapy Services or patient discharge from the hospital this note represents the current Physical Therapy Discharge Summary. [facility] Inpatient Diabetes Consults - Progress Note- For provider quality assurance monitor body: QGENDA : TEAM 2 Assessment Uncontrolled Type 2 Diabetes Mellitus (T2DM) Admitted for CABG 04/26/24 c/b UTI Hx HTN, HLD, PFO s/p closure in July of 2023, cardio embolic stroke June 2023, obesity, CAD and ischemic cardiomyopathy. A1c: 7.5% Risk: .None Plan Hospital Plan: Continue current plan inpatient, discharge plan as below. Basal: Insulin glargine: 28 units q 24H Prandial: Insulin lispro: 1 unit per 6 gram carbs qachs & prn Correction: Insulin lispro: 1 unit(s) per every 25 mg/dL above 150 mg/dL qachs Education: Discussed discharge plan as below We will review glucoses; however, primary team should continue to check blood glucoses daily and reach out to our service with urgent issues I spent greater than 50% of 55 minutes providing diabetes management services to Antonia Kruger today independent of procedures and other care providers. My time managing this patient included review of interval history, laboratories, and glucose trends; performing a physical examination; coordinating daily diabetes plan and potential discharge; diabetes education; and managing hyperglycemia. DIABETES DISCHARGE PLAN (Please use the Diabetes Discharge Order Set: Diabetes Orders - for those patients discharged on INSULIN) - If orals or non-insulin injectables recommended, will need to order them outside of the Diabetes Orderset. Noninsulin injectables: Trulicity Orals: glimepiride 2mg daily, metformin 1000mg BID Discharge Diet: DIET CARB CONTROLLED- 60 Grams per Meal Patient Education: Your target blood sugar is 80-130 mg/dl fasting and under 180 mg/dl nonfasting. Patient needs new insulin scripts at discharge: YES, needs all new insulin scripts prescribed. . Basal/Mealtime - Basal: U100 Glargine PENS with needles, dose 28 units every day . (Or insurance covered equivalent.) Titration: TBD - Correction: FixedvsFlexible: Fixed: U100 Lispro Pens with Pen [place] MAX DAILY DOSE 20 units Correction Scale: (Copy and paste into Note to Pharmacy) 151-200 = 1 unit 201-250 = 2 units 251-300 = 3 units 301-350 = 4 units 351-400 = 5 units Diabetes Supplies: The patient will need script for new glucometer: ASK Patient : Patient prefers any brand or substitute brand covered by insurance Other Diabetes Supplies: Glucagon (Baqsimi Two Pack) 3 MG/DOSE Powder if discharged on insulin Follow up needed: Patient has a local Academic Affairs Assistant that is not at [facility], and will schedule their own appt in 2-4 weeks CC: hyperglycemia History of Present Illness: Antonia Kruger is a 53 y.o. year old male who is seen at the bedside with present. Cr 0.80. Eager to discharge home. Agreeable to insulin use at discharge. Will follow up with grain unloader in [place]. Seen by diabetic educator today. Current Diet Orders Procedures DIET HEART HEALTHY - 4 GM SODIUM Carb Controlled Standing Status: Standing Number of Occurrences: 1 Order Specific Question: Additional Modifier: Answer: Carb Controlled Current Regimen: Basal: Insulin glargine: 24 units q24H Prandial: Insulin lispro: 1 unit per 8 gram carbs qachs & prn Correction: Insulin lispro: 1 unit(s) per every 25 mg/dL above 150 mg/dL qachs Daily Glucose Review: Date Daily glucose review TDD Basal Prandial/ Correction 04/28/24 122, 185, 231, 235, 220 40 20 20 04/29/24 191, 189, 223, 183, 216 41 20 21 04/30/24 174, 170, 236, 221, 249 49 24 25 05/01/2024 181(s), 182, 207, 136, 215 62 28 34 217(s), 171, Review of Systems Diabetes: Negative for symptoms of hypoglycemia Respiratory: Negative for shortness of breath Gastrointestinal: Negative for abdominal pain or nausea All other systems negative. Physical Exam Constitutional: Well-developed, well-nourished, obese male in no acute distress. Pulmonary/Chest: Respirations even and unlabored Musculoskeletal: No acute abnormalities noted Neurological: Alert Psych: Cooperative Temp: [97.6 F (36.4 C)-98.4 F (36.9 C)] 97.8 F (36.6 C) Pulse (Heart Rate): [75-93] 89 Resp Rate: [14-25] 18 BP: (131-181)/(61-103) 165/77 O2 Sat (%): [94 %-97 %] 96 % Weight: [95.3 kg (210 lb)] 95.3 kg (210 lb)Admission/Adult (Dosing) Weight: 97.3 kg (214 lb 9.6 oz) Most recent entered Weight: 95.3 kg (210 lb) (standing) Body mass index is 36.05 kg/m . Background History Antonia Kruger is a 53 y.o. year old male with Type 2 Diabetes Mellitus (T2DM) diagnosed in 2019 who is seen in consultation at the request of Jacky Meyer MD, PhD for assistance with evaluation of postoperative hyperglycemia and to make treatment recommendations. He is admitted for CABG for ischemic cardiomyopathy, performed 04/26/24. He was placed on an insulin drip for post-operative glycemic control. He was also given 20u glargine this morning. His home regimen is metformin and glimepiride plus trulicity. Has never needed insulin outpatient. On interview reports nausea but no vomiting. Endorses surgical site pain on chest and leg. Denies abdominal pain. When I spoke with him he was still NPO however he was switched to a heart healthy diet after noon (24 hours post-operative). Diabetes History: Type of Diabetes: Type 2 Diabetes Mellitus (T2DM) Diagnosis (aprox date): 2019 Family History: unknown, adopted Outpatient Clinic: Local family medicine doctor (Krista Schmidt MD) Home regimen: Noninsulin injectables: Trulicity Orals: glimepiride 2mg daily, metformin 1000mg BID BP: ramipril, metoprolol, amlodipine, and hydralazine Heart Failure: no SGLT2i therapy Lipids: pravastatin Vitamin D none Thyroid none Recent A1c: Lab Results Component Value Date HGBA1C 7.5 (H) 04/05/2024 Lab Results Component Value Date CHOLESTEROL 185 04/05/2024 TRIG 111 04/27/2024 HDL 41 04/05/2024 LDLCALC 110 (H) 04/05/2024 Lab Results Component Value Date SODIUM 134 (L) 05/02/2024 POTASSIUM 4.4 05/02/2024 CHLORIDE 101 05/02/2024 CO2 24 05/02/2024 BUN 18 05/02/2024 CREATSERUM 0.80 05/02/2024 GLUCOSE 171 (H) 05/02/2024 No results found for: CREATURINE, MICROALBUMIN, MICALBCREAT Lab Results Component Value Date ALT 19 04/05/2024 Prealbumin Date Value Ref Range Status 04/05/2024 31 17 - 34 mg/dL Final Cardiac echo: EF = Results for orders placed in visit on 04/26/24 CLARITZA (Final) Narrative Echocardiography Report DEMOGRAPHICS Date/Time: 04/26/2024 11:52 PM Consent obtained preoperatively Diagnosis: CAD (coronary artery disease) Purpose for Procedure: No Indication for Test: Ventricular Assessment Aortic Valve Mitral Valve Tricuspid Valve Procedure: 14792- Probe placement, image acquistion & report 86566- Doppler color flow velocity mapping 58728- Image acquistion, interpretation & report Location: OR Pre-Intervention Attending: Leodna King MD Post -Intervention Attending: Leodan King MD Patient intubated Complications: none CLARITZA Probe Insertion: easy LEFT VENTRICLE Cavity Size TGSAX: normal Interventricular Septum normal LV Systolic Function: Ejection Fraction: 50 % Segmental Wall Motion Basal Segments: inferior normal inferolateral normal anterolateral normal anterior normal anteroseptal normal inferoseptal normal Mid Segments: inferior normal inferolateral normal anterolateral normal anterior normal anteroseptal normal inferoseptal normal Apical Segments: inferior normal lateral normal anterior normal septal normal LV Diastolic Function Peak E: 83 cm/s Peak A: 53 cm/s E': 8.2 cm/s RIGHT VENTRICLE Cavity Size ME4C: dilated ATRIA Left Atrium normal Right Atrium normal Atria Notes ASD occlusion device present MITRAL VALVE Annulus normal MV Leaflets normal MV Regurgitation mild MV Stenosis none AORTIC VALVE AV Annulus normal AV Leaflets normal AV Regurgitation Severity: trace AV Stenosis none TRICUSPID VALVE TV Stenosis normal TV Leaflets normal AORTA Anatomy and Dimensions Aortic Root: normal Ao Arch: normal Desc Ao: normal Atheroma Asc Ao: none Ao Arch: none Desc Ao: none Dissection Desc Ao: normal PERICARDIUM / OTHER Pericardial Abnormality normal Pericardial Effusion none PRE-INTERVENTION SUMMARY Pt presents for CABG: LV - low normal systolic function, EF approximately 50%. No RWMAs seen. Normal diastolic function RV - Mildly dilated, normal systolic function Interatrial septum - ASD occlusion device seen, well seated; trace flow seen around device MV - normal annulus, mild MR, no MS AV - trileaflet, trace AI, no TV - normal annulus, no TR Aorta - no significant calcification or atheroma Findings discussed with surgical team. POST-INTERVENTION FINDINGS POST-INTERVENTION SUMMARY S/P CABG: LV - improved systolic function, no RWMAs RV - unchanged MV - slightly worsened MR AV and TV are unchanged No significant effusion seen. CARDIAC SURGERY DAILY PROGRESS NOTE. HISTORY OF PRESENT ILLNESS: Mr. Kruger is a 53 y.o. male who has a pertinent past medical history including HTN, HLD, DM, PFO s/p closure in July of 2023, cardio embolic stroke June 2023, CAD and ischemic cardiomyopathy. He presented with symptoms of chest pain, anxiety, and dry cough, and was found to have severe multi-vessel CAD. He is now s/p CABG with Jacky Meyer on 04/26/24. DATE OF SURGERY: 04/26/24 PROCEDURE: CABG x 3 (NICE-LAD, [id number]) , LAAL SURGEON: Dr. Jacky Meyer POD: 5 Code Status:Full Code 24-hour interval history: No major events overnight Plan for 05/01/2024: - Switch metoprolol to 100 XL, increase norvasc to 10 PRN hydral & labetalol for hypertension Consider restarting home SKYLER tomorrow - Remove left pleural chest tube (output=0)-- PA/lat is ordered for tomorrow - CT chest today to eval LLL If atelectasis-- will do intermittent bipap If consolidation/infiltrate-- will do empiric abx - Continue lasix 40 PO BID: now at preadmission wt-- consider decreasing tomorrow - Tamra hose to LLE for edema - Decrease robaxin to 500 q6 prn - PT/OT, OOB Discharge Planning/DENISE/Discharge Readiness: Anticipated, Discharge to home with home health. As soon as tomorrow if CT has no intervenable findings needs to do 5 stairs with PT before he can leave Follow up: Emailed 04/28 Imaging follow up plan: CXR PA/LAT (ordered) Ambulatory referral to cardiac rehab order placed:Yes Dr. Jacky Meyer recommends home health services upon discharge including PT, OT, and residential as indicated SURGICAL PLAN Pre-op CLARITZA: PRE-INTERVENTION SUMMARY Pt presents for CABG: LV - low normal systolic function, EF approximately 50%. No RWMAs seen. Normal diastolic function RV - Mildly dilated, normal systolic function Interatrial septum - ASD occlusion device seen, well seated; trace flow seen around device MV - normal annulus, mild MR, no MS AV - trileaflet, trace AI, no TV - normal annulus, no TR Aorta - no significant calcification or atheroma Post-op CLARITZA: POST-INTERVENTION SUMMARY S/P CABG: LV - improved systolic function, no RWMAs RV - unchanged MV - slightly worsened MR AV and TV are unchanged No significant effusion seen. Chest Tube Mgmt: Left pleural Plan for today: remove Pacing Wires: Ventricular - Removed 04/28 Sut[place] Plan: Prevena to MSI. Remove on POD 7 or prior to discharge PA/LAT Chest X-ray: Ordered for 05/02 OT shower complete? No consult OT once all tubes and wires are out. SYSTEM BASED PLAN . Neurological: Acute Post-Operative Pain - Tylenol & robaxin PRN - PRN oxycodone 5 mg q3 Situational anxiety Hydroxyzine ordered if needed, discussed with patient to use other coping mechanisms and support of before resorting to medications dt risk of side effects Hx/o Cardio embolic hemorrhagic stroke 06/2023 - Residual L hand/leg numbness, incoordination. Now s/p PFO closure 07/2023 Insomnia, chronic: - Melatonin 6 mg QHS Cardiovascular: Multi-vessel CAD & ischemic cardiomyopathy s/p CABG x 3 (NICE-LAD, [id number]) , LAAL 04/26/24 - ASA, metoprolol, statin Hx/o PFO s/p closure 07/2023 Hypertension SBP goal <140 Home medications: metoprolol 12.5 mg Q12h, Amlodipine 10mg daily, Ramipril 5 mg daily, Hydralazine 10 mg TID PRN( Held) --Metop 100XL daily, Norvasc 10 daily. Consider restarting home SKYLER tomorrow Hyperlipidemia Continue home Pravastatin 40 QHS Prophylactic Antiarrythmic: Yes - Amiodarone Pulmonary: Oxygenating well on RA - Resume oxygen for saturation < 88 - pulm hygiene/IS LLL consolidation vs atelectasis Chest PT Pulmonary toilet Remove remaining chest tube CT chest today to further evaluate Renal: At Risk for RAMANDEEP d/t CPB Baseline Creatinine: 0.60 Urine output: acceptable Monitor chemistries Avoid nephrotoxic agents. Hypervolemia : At preadmission wt- lasix 40 mg po bid. Urinary Tract Infection r/t indwelling urinary catheter - UA 12/4: + Leuks - Begin empiric antibiotics - Urine culture negative - See ID Electrolyte abnormalities: Hyponatremia- Likely d/t fluid overload, CTM. Will diurese as able Hypokalemia - Electrolyte replacement per protocol, Maintain K>4.5 Hypomagnesemia - Electrolyte replacement per protocol, Maintain Mg>3.0 Hypocalcemia - Electrolyte replacement per protocol Gastrointestinal: Acute Post Operative Constipation Last Bowel Movement: 04/30/24 (Now). Bowel regimen in place with scheduled miralax and senna, increased PRN dulcolax suppository Current Diet Orders Procedures DIET HEART HEALTHY - 4 GM SODIUM Carb Controlled Standing Status: Standing Number of Occurrences: 1 Order Specific Question: Additional Modifier: Answer: Carb Controlled Morbid Obesity - Pt. has class II obesity (BMI 35-39.9). Follow with PCP for dietary and lifestyle modifications : Body mass index is 36.8 kg/m . Integumentary/Musculoskeletal Active Incisions Wounds - Wound Incision 04/26/24 0824 Left;Lower Leg (5) Wound Incision 04/26/24 0824 Midline Chest (5) Wound Other (comment) 04/29/24 1603 incision Upper;Medial Abdomen (2) Endocrinology DM2, Post-Operative Stress Induced Hyperglycemia - Postoperative Insulin gtt, transition to SSI when appropriate HgbA1c= 04/05/2024: Hemoglobin A1C HPLC 7.5 - Home diabetes meds: glimepiride, trulicity, metformin (held) - Endo consulted for insulin mgmt/recs - Glargine 28u daily and SSI Hematology Post-operative Acute Blood Loss Anemia- improving CTM daily H/H, no indication for transfusion at this time Monitor chest tube output No acute bleeding concerns at this time Anticoagulation Status/Plan Not needed per surgical team Infectious Disease Postoperative leukocytosis Improving CT chest to rule out developing pneumonia Urinary Tract Infection Pt denies urinary complaints UA sent 04/28: + leuks Urine culture: negative Empiric treatment ceftriaxone 1 gm q 24 hrs x 3 days (EOT 04/30) Complexity Hypocalcemia - Continue to monitor and replete. Obesity Body mass index is 36.8 kg/m . - Follow with PCP for dietary and lifestyle modifications. Primary person of contact Dalila Kruger, spouse Prophylaxis Bundle: HOB: 30 degrees Stress ulcer ppx: [] Yes [] Therapeutic [] Home regimen [x] No, not indicated Chemical DVT ppx: [x] Yes [] No, SCDs ordered Therapy Services: SONOGRAPHY TECHNOLOGIST: [] Swallow [] Cognitive Eval [] Speaking Valve [x] N/A Early Mobility: PT/OT consulted: [x]Yes [] No, d/t clinical status [] No, pt is independent Current Mobility Status: Ambulating halls with assistance OBJECTIVE VITALS: Blood pressure 163/75, pulse 91, temperature 98.2 F (36.8 C), temperature source Oral, resp. rate 20, height 1.626 m (5' 4), weight 97.3 kg (214 lb 6.4 oz), SpO2 97%. Physical Exam General appearance: No acute distress, AOx4, sitting up in chair HEENT: Normocephalic, trachea midline Lungs: CTA. Breathing room air Heart: RRR Abdomen: Nondistended, non-tender Extremities: RLE without edema, LLE with 2+ edema. Distal extremities are warm and well perfused Skin: Skin color, texture, turgor normal. No rashes or lesions Neurologic: Moves all extremities to command without focal deficits Psych: Interactive, attentive, appropriate insight and mood for situation. Moderately anxious Wounds/Incisions: Midline sternotomy well approximated, healing appropriately Chest tube sites healing well without erythema, minimal drainage SURGICAL INCISIONS MSI with prevena in place L leg SVG site JENNIFER, surgical glue intact, mild ecchymosis surrounding surgical sites and along tunnel No groin sutures Chel Will PA-C Cardiac Surgery JANEL 05/01/24 10:12 AM [id number] [facility] Inpatient Diabetes Consults - Progress Note- For provider quality assurance monitor body: QGENDA : TEAM 2 Assessment Uncontrolled Type 2 Diabetes Mellitus (T2DM) Admitted for CABG 04/26/24 c/b UTI Hx HTN, HLD, PFO s/p closure in July of 2023, cardio embolic stroke June 2023, obesity, CAD and ischemic cardiomyopathy. A1c: 7.5% Risk: .None Plan Hospital Plan: Increase basal insulin Basal: Insulin glargine: 24->28 units q24H Prandial: Insulin lispro: 1 unit per 6 gram carbs qachs & prn Correction: Insulin lispro: 1 unit(s) per every 25 mg/dL above 150 mg/dL qachs Education: Briefly mentioned current regimen We will review glucoses; however, primary team should continue to check blood glucoses daily and reach out to our service with urgent issues DIABETES DISCHARGE PLAN Please contact our team on day of discharge for definitive recs. QGENDA :TEAM 2 Tentative discharge plan: (Please use the Diabetes Discharge Order Set: Diabetes Orders - for those patients discharged on INSULIN) - If orals or non-insulin injectables recommended, will need to order them outside of the Diabetes Orderset. At home he is on the following. Resumption will be based on clinical course: Noninsulin injectables: Trulicity Orals: glimepiride 2mg daily, metformin 1000mg BID Discharge Diet: DIET CARB CONTROLLED- 60 Grams per Meal Patient Education: Your target blood sugar is 80-130 mg/dl fasting and under 180 mg/dl nonfasting. Patient needs new insulin scripts at discharge: YES, needs all new insulin scripts prescribed. . Basal/Mealtime - Basal: U100 Glargine PENS with needles, dose TBD. (Or insurance covered equivalent.) Titration: TBD - Mealtime time insulin: FixedvsFlexible: Fixed: U100 Lispro Pens with Pen [place] MAX DAILY DOSE TBD TBD Units for Large Meal or TBD Units for Small Meal PLUS Correction Scale Subcutaneous every meal and at bedtime Correction Scale: (Copy and paste into Note to Pharmacy) Custom: TBD Diabetes Supplies: The patient will need script for new glucometer: ASK Patient : Patient prefers any brand or substitute brand covered by insurance Other Diabetes Supplies: Glucagon (Baqsimi Two Pack) 3 MG/DOSE Powder if discharged on insulin Follow up needed: PCP initially and then Patient has a local Academic Affairs Assistant that is not at [facility], and will schedule their own appt in 2-4 weeks. Patient will pursue CGM as outpatient CC: hyperglycemia History of Present Illness: Antonia Kruger is a 53 y.o. year old male who is seen at the bedside with present. Cr 0.68. Leukocytosis improved. He is being treated for a UTI. Patient is eating at each meal, without nausea. BG cont elevated but improving. asking about him seeing Endo at discharge. They live up by [place] and she sees endo up there. She will arrange appt through his PCP. Current Diet Orders Procedures DIET HEART HEALTHY - 4 GM SODIUM Carb Controlled Standing Status: Standing Number of Occurrences: 1 Order Specific Question: Additional Modifier: Answer: Carb Controlled Current Regimen: Basal: Insulin glargine: 24 units q24H Prandial: Insulin lispro: 1 unit per 6 gram carbs qachs & prn Correction: Insulin lispro: 1 unit(s) per every 25 mg/dL above 150 mg/dL qachs Daily Glucose Review: Date Daily glucose review TDD Basal Prandial/ Correction 04/28/24 122, 185, 231, 235, 220 40 20 20 04/29/24 191, 189, 223, 183, 216 41 20 21 04/30/24 174, 170, 236, 221, 249 49 24 25 05/01/24 181, 182, 207 (early check) Review of Systems Diabetes: Negative for symptoms of hypoglycemia Respiratory: Negative for shortness of breath Gastrointestinal: Negative for abdominal pain or nausea All other systems negative. Physical Exam Constitutional: Well-developed, well-nourished, obese male in no acute distress. Pulmonary/Chest: Respirations even and unlabored Musculoskeletal: No acute abnormalities noted Neurological: Alert Psych: Cooperative Temp: [97.5 F (36.4 C)-98.4 F (36.9 C)] 98.2 F (36.8 C) Pulse (Heart Rate): [74-101] 80 Resp Rate: [16-22] 18 BP: (124-185)/(56-93) 156/80 O2 Sat (%): [94 %-98 %] 97 % Weight: [97.3 kg (214 lb 6.4 oz)] 97.3 kg (214 lb 6.4 oz)Admission/Adult (Dosing) Weight: 97.3 kg (214 lb 9.6 oz) Most recent entered Weight: 97.3 kg (214 lb 6.4 oz) (standing weight) Body mass index is 36.8 kg/m . Background History Antonia Kruger is a 53 y.o. year old male with Type 2 Diabetes Mellitus (T2DM) diagnosed in 2019 who is seen in consultation at the request of Jacky Meyer MD, PhD for assistance with evaluation of postoperative hyperglycemia and to make treatment recommendations. He is admitted for CABG for ischemic cardiomyopathy, performed 04/26/24. He was placed on an insulin drip for post-operative glycemic control. He was also given 20u glargine this morning. His home regimen is metformin and glimepiride plus trulicity. Has never needed insulin outpatient. On interview reports nausea but no vomiting. Endorses surgical site pain on chest and leg. Denies abdominal pain. When I spoke with him he was still NPO however he was switched to a heart healthy diet after noon (24 hours post-operative). Diabetes History: Type of Diabetes: Type 2 Diabetes Mellitus (T2DM) Diagnosis (aprox date): 2019 Family History: unknown, adopted Outpatient Clinic: Local family medicine doctor (Krista Schmidt MD) Home regimen: Noninsulin injectables: Trulicity Orals: glimepiride 2mg daily, metformin 1000mg BID BP: ramipril, metoprolol, amlodipine, and hydralazine Heart Failure: no SGLT2i therapy Lipids: pravastatin Vitamin D none Thyroid none Recent A1c: Lab Results Component Value Date HGBA1C 7.5 (H) 04/05/2024 Lab Results Component Value Date CHOLESTEROL 185 04/05/2024 TRIG 111 04/27/2024 HDL 41 04/05/2024 LDLCALC 110 (H) 04/05/2024 Lab Results Component Value Date SODIUM 137 05/01/2024 POTASSIUM 3.6 05/01/2024 CHLORIDE 101 05/01/2024 CO2 26 05/01/2024 BUN 19 05/01/2024 CREATSERUM 0.68 (L) 05/01/2024 GLUCOSE 182 (H) 05/01/2024 No results found for: CREATURINE, MICROALBUMIN, MICALBCREAT Lab Results Component Value Date ALT 19 04/05/2024 Prealbumin Date Value Ref Range Status 04/05/2024 31 17 - 34 mg/dL Final Cardiac echo: EF = Results for orders placed in visit on 04/26/24 CLARITZA (Final) Narrative Echocardiography Report DEMOGRAPHICS Date/Time: 04/26/2024 11:52 PM Consent obtained preoperatively Diagnosis: CAD (coronary artery disease) Purpose for Procedure: No Indication for Test: Ventricular Assessment Aortic Valve Mitral Valve Tricuspid Valve Procedure: 75406- Probe placement, image acquistion & report 63828- Doppler color flow velocity mapping 73008- Image acquistion, interpretation & report Location: OR Pre-Intervention Attending: Leodan King MD Post -Intervention Attending: Leodan King MD Patient intubated Complications: none CLARITZA Probe Insertion: easy LEFT VENTRICLE Cavity Size TGSAX: normal Interventricular Septum normal LV Systolic Function: Ejection Fraction: 50 % Segmental Wall Motion Basal Segments: inferior normal inferolateral normal anterolateral normal anterior normal anteroseptal normal inferoseptal normal Mid Segments: inferior normal inferolateral normal anterolateral normal anterior normal anteroseptal normal inferoseptal normal Apical Segments: inferior normal lateral normal anterior normal septal normal LV Diastolic Function Peak E: 83 cm/s Peak A: 53 cm/s E': 8.2 cm/s RIGHT VENTRICLE Cavity Size ME4C: dilated ATRIA Left Atrium normal Right Atrium normal Atria Notes ASD occlusion device present MITRAL VALVE Annulus normal MV Leaflets normal MV Regurgitation mild MV Stenosis none AORTIC VALVE AV Annulus normal AV Leaflets normal AV Regurgitation Severity: trace AV Stenosis none TRICUSPID VALVE TV Stenosis normal TV Leaflets normal AORTA Anatomy and Dimensions Aortic Root: normal Ao Arch: normal Desc Ao: normal Atheroma Asc Ao: none Ao Arch: none Desc Ao: none Dissection Desc Ao: normal PERICARDIUM / OTHER Pericardial Abnormality normal Pericardial Effusion none PRE-INTERVENTION SUMMARY Pt presents for CABG: LV - low normal systolic function, EF approximately 50%. No RWMAs seen. Normal diastolic function RV - Mildly dilated, normal systolic function Interatrial septum - ASD occlusion device seen, well seated; trace flow seen around device MV - normal annulus, mild MR, no MS AV - trileaflet, trace AI, no TV - normal annulus, no TR Aorta - no significant calcification or atheroma Findings discussed with surgical team. POST-INTERVENTION FINDINGS POST-INTERVENTION SUMMARY S/P CABG: LV - improved systolic function, no RWMAs RV - unchanged MV - slightly worsened MR AV and TV are unchanged No significant effusion seen. Have seen and examined the patient. He is status post CABG. He has persistent left lower lobe consolidation versus effusion. We will get a chest CT today to evaluate. CARDIAC SURGERY DAILY PROGRESS NOTE. HISTORY OF PRESENT ILLNESS: Mr. Kruger is a 53 y.o. male who has a pertinent past medical history including HTN, HLD, DM, PFO s/p closure in July of 2023, cardio embolic stroke June 2023, CAD and ischemic cardiomyopathy. He presented with symptoms of chest pain, anxiety, and dry cough, and was found to have severe multi-vessel CAD. He is now s/p CABG with Jacky Meyer on 04/26/24. DATE OF SURGERY: 04/26/24 PROCEDURE: CABG x 3 (NICE-LAD, [id number]) , LAAL SURGEON: Dr. Jacky Meyer POD: 4 Code Status:Full Code 24-hour interval history: No major events overnight. Hypertension treated with PRNs Plan for 04/30/2024: - Restart home norvasc at 5mg, increase metop to 50 BID PRN hydral & labetalol for hypertension - Decrease Oxy to 5 mg PRN - Keep Left pleural CT for worsening imaging findings - Pulmonary toilet, chest PT, if CXR worsening tomorrow obtain noncon CT chest to rule out pneumonia - Continue lasix 40 PO BID - PT/OT, OOB Discharge Planning/DENISE/Discharge Readiness: Anticipated, Discharge to home with home health. Follow up: Emailed 04/28 Imaging follow up plan: CXR PA/LAT (ordered) Ambulatory referral to cardiac rehab order placed:Yes Dr. Jacky Meyer recommends home health services upon discharge including PT, OT, and residential as indicated SURGICAL PLAN Pre-op CLARITZA: PRE-INTERVENTION SUMMARY Pt presents for CABG: LV - low normal systolic function, EF approximately 50%. No RWMAs seen. Normal diastolic function RV - Mildly dilated, normal systolic function Interatrial septum - ASD occlusion device seen, well seated; trace flow seen around device MV - normal annulus, mild MR, no MS AV - trileaflet, trace AI, no TV - normal annulus, no TR Aorta - no significant calcification or atheroma Post-op CLARITZA: POST-INTERVENTION SUMMARY S/P CABG: LV - improved systolic function, no RWMAs RV - unchanged MV - slightly worsened MR AV and TV are unchanged No significant effusion seen. Chest Tube Mgmt: Left pleural Plan for today:Keep Pacing Wires: Ventricular - Removed 04/28 Sutures/[place] Plan: Prevena to MSI. Remove on POD 7 or prior to discharge PA/LAT Chest X-ray: To be ordered once all chest tubes are removed OT shower complete? No consult OT once all tubes and wires are out. SYSTEM BASED PLAN . Neurological: Acute Post-Operative Pain - Scheduled tylenol, gabapentin, robaxin - PRN oxycodone 5 mg q3 prn. 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 PRNs available Hyperlipidemia Continue home Pravastatin 40 QHS Prophylactic Antiarrythmic: Yes - Amiodarone Pulmonary: Oxygenating well on RA - Resume oxygen for saturation < 88 - pulm hygiene/IS LLL consolidation vs atelectasis Chest PT Pulmonary toilet Consider CT chest tomorrow if continues to worsen Keep chest tube for this reason (although output is minimal) Renal: At Risk for RAMANDEEP d/t CPB Baseline Creatinine: 0.60 Urine output: acceptable Monitor chemistries Avoid nephrotoxic agents. Hypervolemia : + 3 kg since admission- lasix 40 mg po bid. Urinary Tract Infection r/t indwelling urinary catheter - UA 04/27: + Leuks - Begin empiric antibiotics - Urine culture negative - See ID Electrolyte abnormalities: Hyponatremia- Likely d/t fluid overload, CTM. Will diurese as able Hypokalemia - Electrolyte replacement per protocol, Maintain K>4.5 Hypomagnesemia - Electrolyte replacement per protocol, Maintain Mg>3.0 Hypocalcemia - Electrolyte replacement per protocol Gastrointestinal: Acute Post Operative Constipation Last Bowel Movement: 04/30/24 (Now). Bowel regimen in place with scheduled miralax and senna, increased PRN dulcolax suppository Current Diet Orders Procedures DIET HEART HEALTHY - 4 GM SODIUM Carb Controlled Standing Status: Standing Number of Occurrences: 1 Order Specific Question: Additional Modifier: Answer: Carb Controlled Morbid Obesity - Pt. has class II obesity (BMI 35-39.9). Follow with PCP for dietary and lifestyle modifications : Body mass index is 37.49 kg/m . Integumentary/Musculoskeletal Active Incisions Wounds - Wound Incision 04/26/24 0824 Left;Lower Leg (4) Wound Incision 04/26/24 0824 Midline Chest (4) Wound Other (comment) 04/29/24 1603 incision Upper;Medial Abdomen (1) Endocrinology DM2, Post-Operative Stress Induced Hyperglycemia - Postoperative Insulin gtt, transition to SSI when appropriate HgbA1c= 04/05/2024: Hemoglobin A1C HPLC 7.5 - Home diabetes meds: glimepiride, trulicity, metformin (held) - Endo consulted for insulin mgmt/recs - Glargine 20u daily and SSI Hematology Post-operative Acute Blood Loss Anemia- improving CTM daily H/H, no indication for transfusion at this time Monitor chest tube output No acute bleeding concerns at this time Anticoagulation Status/Plan Not needed per surgical team Infectious Disease Postoperative leukocytosis and 2/2 Urinary Tract Infection - Tmax 101.5 and WBC 21.4 (17) on 04/28- currently afebrile and leukocytosis is downtrending - Pt denies urinary complaints - UA sent 04/28: + leuks Urine culture: negative - empiric treatment ceftriaxone 1 gm q 24 hrs x 3 days (EOT 04/30) Complexity Hypocalcemia - Continue to monitor and replete. Obesity Body mass index is 37.49 kg/m . - Follow with PCP for dietary and lifestyle modifications. Primary person of contact Dalila Kruger, spouse Prophylaxis Bundle: HOB: 30 degrees Stress ulcer ppx: [] Yes [] Therapeutic [] Home regimen [x] No, not indicated Chemical DVT ppx: [x] Yes [] No, SCDs ordered Therapy Services: SONOGRAPHY TECHNOLOGIST: [] Swallow [] Cognitive Eval [] Speaking Valve [x] N/A Early Mobility: PT/OT consulted: [x]Yes [] No, d/t clinical status [] No, pt is independent Current Mobility Status: Ambulating halls with assistance OBJECTIVE VITALS: Blood pressure 147/67, pulse 84, temperature 97.6 F (36.4 C), temperature source Oral, resp. rate 18, height 1.626 m (5' 4), weight 99.1 kg (218 lb 6.4 oz), SpO2 95%. Physical Exam General appearance: No acute distress, AOx4, sitting up in chair HEENT: Normocephalic, trachea midline Lungs: CTA. Breathing room air Heart: RRR Abdomen: Nondistended, non-tender Extremities: Bilateral lower extremities with 1+ edema. Distal extremities are warm and well perfused Skin: Skin color, texture, turgor normal. No rashes or lesions Neurologic: Moves all extremities to command without focal deficits Psych: Interactive, attentive, appropriate insight and mood for situation Wounds/Incisions: Midline sternotomy well approximated, healing appropriately Chest tube sites healing well without erythema, minimal drainage SURGICAL INCISIONS MSI with prevena in place L leg SVG site JENNIFER, surgical glue intact, mild ecchymosis surrounding surgical sites and along tunnel No groin sutures Chel Will PA-C Cardiac Surgery JANEL 04/30/24 2:03 PM [id number] [facility] Inpatient Diabetes Consults - Progress Note- For provider quality assurance monitor body: QGENDA : TEAM 2 Assessment Uncontrolled Type 2 Diabetes Mellitus (T2DM) Admitted for CABG 04/26/24 c/b UTI Hx HTN, HLD, PFO s/p closure in July of 2023, cardio embolic stroke June 2023, obesity, CAD and ischemic cardiomyopathy. A1c: 7.5% Risk: .None Plan Hospital Plan: All insulin was increased yesterday, but appears to need more prandial. Will get the increase in basal this AM Basal: Insulin glargine: 24 units q24H Prandial: Insulin lispro: 1 unit per 8 ->6 gram carbs qachs & prn Correction: Insulin lispro: 1 unit(s) per every 25 mg/dL above 150 mg/dL qachs Education: Briefly mentioned current regimen We will review glucoses; however, primary team should continue to check blood glucoses daily and reach out to our service with urgent issues DIABETES DISCHARGE PLAN Please contact our team on day of discharge for definitive recs. QGENDA :TEAM 2 Tentative discharge plan: (Please use the Diabetes Discharge Order Set: Diabetes Orders - for those patients discharged on INSULIN) - If orals or non-insulin injectables recommended, will need to order them outside of the Diabetes Orderset. At home he is on the following. Resumption will be based on clinical course: Noninsulin injectables: Trulicity Orals: glimepiride 2mg daily, metformin 1000mg BID Discharge Diet: DIET CARB CONTROLLED- 60 Grams per Meal Patient Education: Your target blood sugar is 80-130 mg/dl fasting and under 180 mg/dl nonfasting. Patient needs new insulin scripts at discharge: YES, needs all new insulin scripts prescribed. . Basal/Mealtime - Basal: U100 Glargine PENS with needles, dose TBD. (Or insurance covered equivalent.) Titration: TBD - Mealtime time insulin: FixedvsFlexible: Fixed: U100 Lispro Pens with Pen [place] MAX DAILY DOSE TBD TBD Units for Large Meal or TBD Units for Small Meal PLUS Correction Scale Subcutaneous every meal and at bedtime Correction Scale: (Copy and paste into Note to Pharmacy) Custom: TBD Diabetes Supplies: The patient will need script for new glucometer: ASK Patient : Patient prefers any brand or substitute brand covered by insurance Other Diabetes Supplies: Glucagon (Baqsimi Two Pack) 3 MG/DOSE Powder if discharged on insulin Follow up needed: Patient has a local Academic Affairs Assistant that is not at [facility], and will schedule their own appt in 2-4 weeks CC: hyperglycemia History of Present Illness: Antonia Kruger is a 53 y.o. year old male who is seen at the bedside with present. Cr 0.61. Leukocytosis to 19.65 but afebrile. He is being treated for a UTI. Patient is eating at each meal, without nausea. Current Diet Orders Procedures DIET HEART HEALTHY - 4 GM SODIUM Carb Controlled Standing Status: Standing Number of Occurrences: 1 Order Specific Question: Additional Modifier: Answer: Carb Controlled Current Regimen: Basal: Insulin glargine: 24 units q24H Prandial: Insulin lispro: 1 unit per 8 gram carbs qachs & prn Correction: Insulin lispro: 1 unit(s) per every 25 mg/dL above 150 mg/dL qachs Daily Glucose Review: Date Daily glucose review TDD Basal Prandial/ Correction 04/28/24 122, 185, 231, 235, 220 40 20 20 04/29/24 191, 189, 223, 183, 216 41 20 21 04/30/24 174, 170, 236 Review of Systems Diabetes: Negative for symptoms of hypoglycemia Respiratory: Negative for shortness of breath Gastrointestinal: Negative for abdominal pain or nausea All other systems negative. Physical Exam Constitutional: Well-developed, well-nourished, obese male in no acute distress. Pulmonary/Chest: Respirations even and unlabored Musculoskeletal: No acute abnormalities noted Neurological: Alert Psych: Cooperative Temp: [97.6 F (36.4 C)-99.1 F (37.3 C)] 97.6 F (36.4 C) Pulse (Heart Rate): [75-98] 92 Resp Rate: [17-22] 18 BP: (124-165)/(66-89) 155/73 O2 Sat (%): [90 %-96 %] 96 % Weight: [99.1 kg (218 lb 6.4 oz)-99.3 kg (219 lb)] 99.1 kg (218 lb 6.4 oz)Admission/Adult (Dosing) Weight: 97.3 kg (214 lb 9.6 oz) Most recent entered Weight: 99.1 kg (218 lb 6.4 oz) (standing weight.) Body mass index is 37.49 kg/m . Background History Antonia Kruger is a 53 y.o. year old male with Type 2 Diabetes Mellitus (T2DM) diagnosed in 2019 who is seen in consultation at the request of Jacky Meyer MD, PhD for assistance with evaluation of postoperative hyperglycemia and to make treatment recommendations. He is admitted for CABG for ischemic cardiomyopathy, performed 04/26/24. He was placed on an insulin drip for post-operative glycemic control. He was also given 20u glargine this morning. His home regimen is metformin and glimepiride plus trulicity. Has never needed insulin outpatient. On interview reports nausea but no vomiting. Endorses surgical site pain on chest and leg. Denies abdominal pain. When I spoke with him he was still NPO however he was switched to a heart healthy diet after noon (24 hours post-operative). Diabetes History: Type of Diabetes: Type 2 Diabetes Mellitus (T2DM) Diagnosis (aprox date): 2019 Family History: unknown, adopted Outpatient Clinic: Local family medicine doctor (Krista Schmidt MD) Home regimen: Noninsulin injectables: Trulicity Orals: glimepiride 2mg daily, metformin 1000mg BID BP: ramipril, metoprolol, amlodipine, and hydralazine Heart Failure: no SGLT2i therapy Lipids: pravastatin Vitamin D none Thyroid none Recent A1c: Lab Results Component Value Date HGBA1C 7.5 (H) 04/05/2024 Lab Results Component Value Date CHOLESTEROL 185 04/05/2024 TRIG 111 04/27/2024 HDL 41 04/05/2024 LDLCALC 110 (H) 04/05/2024 Lab Results Component Value Date SODIUM 137 04/30/2024 POTASSIUM 3.8 04/30/2024 CHLORIDE 100 04/30/2024 CO2 26 04/30/2024 BUN 23 04/30/2024 CREATSERUM 0.61 (L) 04/30/2024 GLUCOSE 170 (H) 04/30/2024 No results found for: CREATURINE, MICROALBUMIN, MICALBCREAT Lab Results Component Value Date ALT 19 04/05/2024 Prealbumin Date Value Ref Range Status 04/05/2024 31 17 - 34 mg/dL Final Cardiac echo: EF = Results for orders placed in visit on 04/26/24 CLARITZA (Final) Narrative Echocardiography Report DEMOGRAPHICS Date/Time: 04/26/2024 11:52 PM Consent obtained preoperatively Diagnosis: CAD (coronary artery disease) Purpose for Procedure: No Indication for Test: Ventricular Assessment Aortic Valve Mitral Valve Tricuspid Valve Procedure: 48167- Probe placement, image acquistion & report 51982- Doppler color flow velocity mapping 71821- Image acquistion, interpretation & report Location: OR Pre-Intervention Attending: Leodan King MD Post -Intervention Attending: Leodan King MD Patient intubated Complications: none CLARITZA Probe Insertion: easy LEFT VENTRICLE Cavity Size TGSAX: normal Interventricular Septum normal LV Systolic Function: Ejection Fraction: 50 % Segmental Wall Motion Basal Segments: inferior normal inferolateral normal anterolateral normal anterior normal anteroseptal normal inferoseptal normal Mid Segments: inferior normal inferolateral normal anterolateral normal anterior normal anteroseptal normal inferoseptal normal Apical Segments: inferior normal lateral normal anterior normal septal normal LV Diastolic Function Peak E: 83 cm/s Peak A: 53 cm/s E': 8.2 cm/s RIGHT VENTRICLE Cavity Size ME4C: dilated ATRIA Left Atrium normal Right Atrium normal Atria Notes ASD occlusion device present MITRAL VALVE Annulus normal MV Leaflets normal MV Regurgitation mild MV Stenosis none AORTIC VALVE AV Annulus normal AV Leaflets normal AV Regurgitation Severity: trace AV Stenosis none TRICUSPID VALVE TV Stenosis normal TV Leaflets normal AORTA Anatomy and Dimensions Aortic Root: normal Ao Arch: normal Desc Ao: normal Atheroma Asc Ao: none Ao Arch: none Desc Ao: none Dissection Desc Ao: normal PERICARDIUM / OTHER Pericardial Abnormality normal Pericardial Effusion none PRE-INTERVENTION SUMMARY Pt presents for CABG: LV - low normal systolic function, EF approximately 50%. No RWMAs seen. Normal diastolic function RV - Mildly dilated, normal systolic function Interatrial septum - ASD occlusion device seen, well seated; trace flow seen around device MV - normal annulus, mild MR, no MS AV - trileaflet, trace AI, no TV - normal annulus, no TR Aorta - no significant calcification or atheroma Findings discussed with surgical team. POST-INTERVENTION FINDINGS POST-INTERVENTION SUMMARY S/P CABG: LV - improved systolic function, no RWMAs RV - unchanged MV - slightly worsened MR AV and TV are unchanged No significant effusion seen. [facility] Inpatient Diabetes Consults - Progress Note- For provider quality assurance monitor body: QGENDA : TEAM 2 Assessment Uncontrolled Type 2 Diabetes Mellitus (T2DM) Admitted for CABG 04/26/24 c/b UTI Hx HTN, HLD, PFO s/p closure in July of 2023, cardio embolic stroke June 2023, obesity, CAD and ischemic cardiomyopathy. A1c: 7.5% Risk: .None Plan Hospital Plan: Increase all insulin as he is above target Basal: Insulin glargine: 20->24 units q24H Prandial: Insulin lispro: 1 unit per 10->8 gram carbs qachs & prn Correction: Insulin lispro: 1 unit(s) per every 50->25 mg/dL above 150 mg/dL qachs Education: Briefly mentioned current regimen We will review glucoses; however, primary team should continue to check blood glucoses daily and reach out to our service with urgent issues DIABETES DISCHARGE PLAN Please contact our team on day of discharge for definitive recs. QGENDA :TEAM 2 Tentative discharge plan: (Please use the Diabetes Discharge Order Set: Diabetes Orders - for those patients discharged on INSULIN) - If orals or non-insulin injectables recommended, will need to order them outside of the Diabetes Orderset. At home he is on the following. Resumption will be based on clinical course: Noninsulin injectables: Trulicity Orals: glimepiride 2mg daily, metformin 1000mg BID Discharge Diet: DIET CARB CONTROLLED- 60 Grams per Meal Patient Education: Your target blood sugar is 80-130 mg/dl fasting and under 180 mg/dl nonfasting. Patient needs new insulin scripts at discharge: YES, needs all new insulin scripts prescribed. . Basal/Mealtime - Basal: U100 Glargine PENS with needles, dose TBD. (Or insurance covered equivalent.) Titration: TBD - Mealtime time insulin: FixedvsFlexible: Fixed: U100 Lispro Pens with Pen [place] MAX DAILY DOSE TBD TBD Units for Large Meal or TBD Units for Small Meal PLUS Correction Scale Subcutaneous every meal and at bedtime Correction Scale: (Copy and paste into Note to Pharmacy) Custom: TBD Diabetes Supplies: The patient will need script for new glucometer: ASK Patient : Patient prefers any brand or substitute brand covered by insurance Other Diabetes Supplies: Glucagon (Baqsimi Two Pack) 3 MG/DOSE Powder if discharged on insulin Follow up needed: Patient has a local Academic Affairs Assistant that is not at [facility], and will schedule their own appt in 2-4 weeks CC: hyperglycemia History of Present Illness: Antonia Kruger is a 53 y.o. year old male who is seen at the bedside up in the chair. Cr 0.8. Leukocytosis to 20.35 but afebrile. He is being treated for a UTI. Patient is eating at each meal, without nausea. Current Diet Orders Procedures DIET HEART HEALTHY - 4 GM SODIUM Carb Controlled Standing Status: Standing Number of Occurrences: 1 Order Specific Question: Additional Modifier: Answer: Carb Controlled Current Regimen: Basal: Insulin glargine: 20 units q24H Prandial: Insulin lispro: 1 unit per 10 gram carbs qachs & prn Correction: Insulin lispro: 1 unit(s) per every 50 mg/dL above 150 mg/dL qachs Daily Glucose Review: Date Daily glucose review TDD Basal Prandial/ Correction 04/28/24 122, 185, 231, 235, 220 40 20 20 04/29/24 191, 189, 223 Review of Systems Diabetes: Negative for symptoms of hypoglycemia Respiratory: Negative for shortness of breath Gastrointestinal: Negative for abdominal pain or nausea All other systems negative. Physical Exam Constitutional: Well-developed, well-nourished, obese male in no acute distress. Pulmonary/Chest: Respirations even and unlabored Musculoskeletal: No acute abnormalities noted Neurological: Sleepy but awakens Psych: Cooperative Temp: [98.3 F (36.8 C)-99.1 F (37.3 C)] 98.3 F (36.8 C) Pulse (Heart Rate): [75-99] 75 Resp Rate: [15-24] 17 BP: (124-156)/(66-78) 124/67 O2 Sat (%): [90 %-97 %] 93 % Weight: [99.3 kg (219 lb)] 99.3 kg (219 lb)Admission/Adult (Dosing) Weight: 97.3 kg (214 lb 9.6 oz) Most recent entered Weight: 99.3 kg (219 lb) Body mass index is 37.59 kg/m . Background History Antonia Kruger is a 53 y.o. year old male with Type 2 Diabetes Mellitus (T2DM) diagnosed in 2019 who is seen in consultation at the request of Jacky Meyer MD, PhD for assistance with evaluation of postoperative hyperglycemia and to make treatment recommendations. He is admitted for CABG for ischemic cardiomyopathy, performed 04/26/24. He was placed on an insulin drip for post-operative glycemic control. He was also given 20u glargine this morning. His home regimen is metformin and glimepiride plus trulicity. Has never needed insulin outpatient. On interview reports nausea but no vomiting. Endorses surgical site pain on chest and leg. Denies abdominal pain. When I spoke with him he was still NPO however he was switched to a heart healthy diet after noon (24 hours post-operative). Diabetes History: Type of Diabetes: Type 2 Diabetes Mellitus (T2DM) Diagnosis (aprox date): 2019 Family History: unknown, adopted Outpatient Clinic: Local family medicine doctor (Krista Schmidt MD) Home regimen: Noninsulin injectables: Trulicity Orals: glimepiride 2mg daily, metformin 1000mg BID BP: ramipril, metoprolol, amlodipine, and hydralazine Heart Failure: no SGLT2i therapy Lipids: pravastatin Vitamin D none Thyroid none Recent A1c: Lab Results Component Value Date HGBA1C 7.5 (H) 04/05/2024 Lab Results Component Value Date CHOLESTEROL 185 04/05/2024 TRIG 111 04/27/2024 HDL 41 04/05/2024 LDLCALC 110 (H) 04/05/2024 Lab Results Component Value Date SODIUM 135 04/29/2024 POTASSIUM 3.9 04/29/2024 CHLORIDE 98 04/29/2024 CO2 25 04/29/2024 BUN 28 (H) 04/29/2024 CREATSERUM 0.80 04/29/2024 GLUCOSE 223 (H) 04/29/2024 No results found for: CREATURINE, MICROALBUMIN, MICALBCREAT Lab Results Component Value Date ALT 19 04/05/2024 Prealbumin Date Value Ref Range Status 04/05/2024 31 17 - 34 mg/dL Final Cardiac echo: EF = Results for orders placed in visit on 04/26/24 CLARITZA (Final) Narrative Echocardiography Report DEMOGRAPHICS Date/Time: 04/26/2024 11:52 PM Consent obtained preoperatively Diagnosis: CAD (coronary artery disease) Purpose for Procedure: No Indication for Test: Ventricular Assessment Aortic Valve Mitral Valve Tricuspid Valve Procedure: 01888- Probe placement, image acquistion & report 19396- Doppler color flow velocity mapping [id number]- Image acquistion, interpretation & report Location: OR Pre-Intervention Attending: Leodan King MD Post -Intervention Attending: Leodan King MD Patient intubated Complications: none CLARITZA Probe Insertion: easy LEFT VENTRICLE Cavity Size TGSAX: normal Interventricular Septum normal LV Systolic Function: Ejection Fraction: 50 % Segmental Wall Motion Basal Segments: inferior normal inferolateral normal anterolateral normal anterior normal anteroseptal normal inferoseptal normal Mid Segments: inferior normal inferolateral normal anterolateral normal anterior normal anteroseptal normal inferoseptal normal Apical Segments: inferior normal lateral normal anterior normal septal normal LV Diastolic Function Peak E: 83 cm/s Peak A: 53 cm/s E': 8.2 cm/s RIGHT VENTRICLE Cavity Size ME4C: dilated ATRIA Left Atrium normal Right Atrium normal Atria Notes ASD occlusion device present MITRAL VALVE Annulus normal MV Leaflets normal MV Regurgitation mild MV Stenosis none AORTIC VALVE AV Annulus normal AV Leaflets normal AV Regurgitation Severity: trace AV Stenosis none TRICUSPID VALVE TV Stenosis normal TV Leaflets normal AORTA Anatomy and Dimensions Aortic Root: normal Ao Arch: normal Desc Ao: normal Atheroma Asc Ao: none Ao Arch: none Desc Ao: none Dissection Desc Ao: normal PERICARDIUM / OTHER Pericardial Abnormality normal Pericardial Effusion none PRE-INTERVENTION SUMMARY Pt presents for CABG: LV - low normal systolic function, EF approximately 50%. No RWMAs seen. Normal diastolic function RV - Mildly dilated, normal systolic function Interatrial septum - ASD occlusion device seen, well seated; trace flow seen around device MV - normal annulus, mild MR, no MS AV - trileaflet, trace AI, no TV - normal annulus, no TR Aorta - no significant calcification or atheroma Findings discussed with surgical team. POST-INTERVENTION FINDINGS POST-INTERVENTION SUMMARY S/P CABG: LV - improved systolic function, no RWMAs RV - unchanged MV - slightly worsened MR AV and TV are unchanged No significant effusion seen. CARDIAC SURGERY DAILY PROGRESS NOTE. HISTORY OF PRESENT ILLNESS: Mr. Kruger is a 53 y.o. male who has a pertinent past medical history including HTN, HLD, DM, PFO s/p closure in July of 2023, cardio embolic stroke June 2023, CAD and ischemic cardiomyopathy. He presented with symptoms of chest pain, anxiety, and dry cough, and was found to have severe multi-vessel CAD. He is now s/p CABG with Jacky Meyer on 04/26/24. DATE OF SURGERY: 04/26/24 PROCEDURE: CABG x 3 (NICE-LAD, [id number]) , LAAL SURGEON: Dr. Jacky Meyer POD: 3 Code Status:Full Code Hospital Course: 04/26/24: Arrival to CVICU after CABG, extubated 04/28/24: OOB, Mediastinal CT x #1 and 2 removed. Pleural left in. 24-hour interval history: No major events overnight . Plan for 04/29/2024: - Decrease Oxy to 5 mg PRN - Keep Left pleural CT for worsening Left pleural effusion - Start empiric abx for UTI with ceftriaxone 1gm q 24 hrs x 3 days (EOT 04/30) - Increase Lasix 40 mg bid - Aggressive pulm hygiene for atelectasis - PT/OT, OOB Discharge Planning/DENISE/Discharge Readiness: Anticipated, Discharge to home with home health. Once CT out. Follow up: Emailed 04/28 Imaging follow up plan: CXR PA/LAT (ordered) Ambulatory referral to cardiac rehab order placed:Yes Dr. Jacky Meyer recommends home health services upon discharge including PT, OT, and residential as indicated SURGICAL PLAN Pre-op CLARITZA: PRE-INTERVENTION SUMMARY Pt presents for CABG: LV - low normal systolic function, EF approximately 50%. No RWMAs seen. Normal diastolic function RV - Mildly dilated, normal systolic function Interatrial septum - ASD occlusion device seen, well seated; trace flow seen around device MV - normal annulus, mild MR, no MS AV - trileaflet, trace AI, no TV - normal annulus, no TR Aorta - no significant calcification or atheroma Post-op CLARITZA: POST-INTERVENTION SUMMARY S/P CABG: LV - improved systolic function, no RWMAs RV - unchanged MV - slightly worsened MR AV and TV are unchanged No significant effusion seen. Chest Tube Mgmt: Left pleural Plan for today:Keep Pacing Wires: Ventricular - Removed 04/28 [place] Plan: Prevena to [facility]. Remove on POD 7 or prior to discharge PA/LAT Chest X-ray: To be ordered once all chest tubes are removed OT shower complete? No consult OT once all tubes and wires are out. SYSTEM BASED PLAN . Neurological: Acute Post-Operative Pain -- DVPRS: Rest: 1- mild pain (04/29 1332) DVPRS: Activity: 1- mild pain (04/29 1332) DVPRS: Rest: 1- mild pain (04/29 1332) DVPRS: Activity: 1- mild pain (04/29 1332) - Scheduled tylenol, gabapentin, robaxin - PRN oxycodone 5 mg q3 prn. ( Decreased 04/29) Agitation/Delirium- Overall CAM-ICU: Negative Calm and cooperative. 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 - Residual L hand/leg numbness, incoordination - Not on anticoagulation Hypertension SBP goal <140 Home medications: metoprolol 12.5 mg Q12h, Amlodipine 10mg daily, Ramipril 5 mg daily, Hydralazine 10 mg TID PRN( Held) - Continue Metoprolol 25 mg Hyperlipidemia hold home Pravastatin 40 QHS - Continue Atorvastatin 40 mg QHS Prophylactic Antiarrythmic: Yes - Amiodarone Pulmonary: Oxygenating well on RA - Resume oxygen for saturation < 88 - pulm hygiene/IS Renal: At Risk for RAMANDEEP d/t CPB Baseline Creatinine: 0.60 Baseline GFR: Estimated Creatinine Clearance: 114 mL/min (by C-G formula based on SCr of 0.8 mg/dL). Urine output: acceptable Monitor chemistries Avoid nephrotoxic agents. - Hypervolemia : + 3 kg since admission- lasix 40 mg po bid. Urinary Tract Infection r/t indwelling urinary catheter - UA 04/27: + Leuks - Begin empiric antibiotics - Urine culture negative - See ID Electrolyte abnormalities: Hyponatremia- resolved Hypomagnesemia - Keep Mg close to 3. Replace per protocol Hypokalemia : K 3.9 . Electrolytes replacements per protocol. Gastrointestinal: Acute Post Operative Constipation Last Bowel Movement: 04/29/24. Bowel regimen in place with scheduled miralax and senna, increased PRN dulcolax suppository Current Diet Orders Procedures DIET HEART HEALTHY - 4 GM SODIUM Carb Controlled Standing Status: Standing Number of Occurrences: 1 Order Specific Question: Additional Modifier: Answer: Carb Controlled Morbid Obesity - Pt. has class II obesity (BMI 35-39.9). Follow with PCP for dietary and lifestyle modifications : Body mass index is 37.59 kg/m . Integumentary/Musculoskeletal Active Incisions Wounds - Wound Incision 04/26/24 0824 Left;Lower Leg (3) Wound Incision 04/26/24 0824 Midline Chest (3) Endocrinology DM2, Post-Operative Stress Induced Hyperglycemia - Postoperative Insulin gtt, transition to SSI when appropriate HgbA1c= 04/05/2024: Hemoglobin A1C HPLC 7.5 - Home diabetes meds: glimepiride, trulicity, metformin - Endo consulted for insulin mgmt/recs - Glargine 20u daily and SSI Hematology Post-operative Acute Blood Loss Anemia- improving CTM daily H/H, no indication for transfusion at this time Monitor chest tube output No acute bleeding concerns at this time Anticoagulation Status/Plan Not needed per surgical team Infectious Disease Post-Op Antimicrobial Therapy - Cefazolin 24 hrs completed Postoperative leukocytosis and 2/2 Urinary Tract Infection - Tmax 101.5 and WBC 21.4 (17) on 04/28 - Pt denies urinary complaints - UA sent 04/28: + leuks Urine culture: negative - empiric treatment ceftriaxone 1 gm q 24 hrs x 3 days (EOT 04/30) - Will continue to monitor WBC. Complexity Hypocalcemia - Continue to monitor and replete. Obesity Body mass index is 37.59 kg/m . - Follow with PCP for dietary and lifestyle modifications. ICU Liberation Checklist: Primary person of contact Dalila Kruger, spouse Prophylaxis Bundle: HOB: 30 degrees Stress ulcer ppx: [] Yes [] Therapeutic [] Home regimen [x] No, not indicated Chemical DVT ppx: [x] Yes [] No, SCDs ordered Therapy Services: SONOGRAPHY TECHNOLOGIST: [] Swallow [] Cognitive Eval [] Speaking Valve [x] N/A Early Mobility: PT/OT consulted: [x]Yes [] No, d/t clinical status [] No, pt is independent Current Mobility Status: PT/OT to work with pt. OOB, Bedside chair. /ambulate OBJECTIVE VITALS: Blood pressure 124/67, pulse 75, temperature 98.3 F (36.8 C), temperature source Oral, resp. rate 17, height 1.626 m (5' 4), weight 99.3 kg (219 lb), SpO2 93%. PHYSICAL EXAM: General appearance: Alert, cooperative, sitting in chair in no acute distress HEENT: PEERL, EOMI, MMM NECK: Supple, Trachea not deviated Lungs: clear to auscultation, no wheezes, rales, or rhonchi Heart: Regular rate and rhythm, S1, S2 normal, no murmur, click, rub or gallop: Abdomen: soft and non-tender, non-distended, normoactive bowel sounds Extremities: B/l extremities normal, atraumatic, no cyanosis . Bilateral LE edema present . Pulses: 2+ and symmetric Skin: Skin color, texture, turgor normal. 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 Pt mobility limited due to fatigue this date) Mobility equipment available at home: lift chair, straight cane, rollator ADL equipment available at home: none Equipment needed for discharge: shower chair Current therapy frequency recommendation in acute: PT Therapy Frequency: 5 times a week Precautions and Weightbearing Status: Existing Precautions/Restrictions: cardiac, fall, standard sternal Telemetry, Chest tube, Wound vac Patient Safety Communication Prior to Visit: Nursing Subjective: Pt awake, alert and agreeable. Pt reports I will try my best Pain: General Pain Documentation (Adult, OB, Peds) Presence of Pain: reports pain/discomfort Pain Location: incisional DVPRS (Defense and Veterans Pain Rating Scale) DVPRS: Rest: 2- mild pain DVPRS: Activity: 2- mild pain Objective/Observation: Vitals/Vitals Responses to Treatment: Patient's vitals stable at end of session with patient in a resting position Vital signs monitored throughout session and remained stable throughout. No abnormal vital sign changes occurred in response to activity. No reports of dizziness, no lightheadedness, no changes in vision during session Lines intact at end of session Call light in reach at end of session Pt with increased fatigue after getting standing weight, commode use and one step trial. O2 Device: room air Extremity Assessments: See PT Evaluation flowsheet for Extremity Measurement updates. Balance: Sitting Balance Static Sitting-Level of Assistance: Standby Dynamic Sitting-Level of Assistance: Standby Skilled Rationale: Hand placement, Verbal cues, Technique of activity, Initiation and execution of task, Cues for increased safety Sitting Balance Skilled Intervention/Details: (recliner and commode) Standing Balance Static Standing-Level of Assistance: Contact guard Dynamic Standing-Level of Assistance: Contact guard Standing-Balance Support: Rollator Skilled Rationale: Sequencing, Hand placement, Verbal cues, Technique of activity, Initiation and execution of task, Cues for increased safety, Maintain precautions Transfer Assessment/Intervention: Sit to Stand Transfer [place] Level: Sit->Stand: minimum assist (75% patient effort) Assistive Device: Sit->Stand: rollator, armed chair (commode) Skilled Rationale: Positioning, Sequencing, Hand placement, Verbal cues, Arm in arm, Technique of activity, Initiation and execution of task, Cues for increased safety Skilled Intervention/Details: Sit->Stand: x6 Stand to Sit Transfer [place] Level: Stand->Sit: minimum assist (75% patient effort) Assistive Device: Stand->Sit: rollator, armed chair (commode) Skilled Rationale: Positioning, Sequencing, Hand placement, Verbal cues, Arm in arm, Controlled descent for sitting, Finding/maintaining midline positioning, Technique of activity, Initiation and execution of task, Cues for increased safety Skilled Intervention/Details: Stand->Sit: Commode and recliner Gait/Functional Mobility Assessment/Intervention: Gait Assessment [place] Level: Gait: contact guard assist Assistive Device: Gait: rollator Ambulation Distance (Feet): (25ft in room, after bathroom use and one step/stairs pt too fatigued to complete further gait) Gait Deviations Identified: decreased debra, decreased gait speed, flexed posture, narrow base of support, decreased step length Gait Skilled Rationale: verbal, upright posture, increase step length, increase step width, improve foot placement, increase foot clearance, proximity of assistive device Stairs Assessment/Intervention: Stairs Assessment [place] Level: Stair Negotiation: moderate assist (50% patient effort) Assistive Device: Stair Negotiation: left rail (ascending) ([employer]) Number of stairs: 1 Stairs Skilled Rationale: verbal, demonstration, nonreciprocal pattern, increase foot clearance, increase LE control descending, general safety Skilled Intervention/Details - Stairs: Cues for safety and control Outcome Score(s): CURRENT [facility] Basic Mobility Inpatient Short Form Turning over in bed: 3 - A Little Assistance Moving from lying on back to sittin - A Lot of Assistance Moving to and from bed to chair: 3 - A Little Assistance Sitting/standing from chair: 3 - A Little Assistance Walk in hospital room: 3 - A Little Assistance Climbing 3-5 steps with a railin - A Lot of Assistance CURRENT [facility] Mobility Raw Score: 16 CURRENT [facility] Mobility Functional Limitation: 54.16% Impaired in Basic Mobility Interventions: Patient performs the following exercise/ activity to increase strength, increase endurance, increase activity tolerance assisting with functional skill development. Patient completed the following interventions with verbal cueing to ensure correct activity technique, safe skill progression, and body mechanics. -Sit to Stand x 5 Cues for stable base of support/ foot placement prior to completion of transfer, effective technique and body mechanics to promote smooth and controlled movement sequencing -Seated knee extension: right and left lower extremity x5 . Verbal cues to ensure full pain free active range of motion and controlled technique -Weight shifts onto right and left lower extremity in standing, x15 seconds to promote dynamic balance training and increased weight bearing tolerance in an upright position -Lower Extremity Home Exercise Program -Activity pacing training / energy conservation training (ensuring to space out daily planned tasks and activities) as well as how take appropriate rest breaks as needed. -Pursed lip breathing control / sequencing. Verbal cues for slow controlled breaths with focus on technique and posture. Posture retraining in sitting + standing to assist with breathing efficiency, effective task completion with upright extension, upright gaze, midline orientation. Sternal Precautions Pt educated on sternal precautions and cued to maintain during activity. No lifting, pushing, pulling No reaching both arms above head at the same time No reaching both arms behind back at the same time Will last until Medical Team Clears You Mobility Education Benefits of mobility explained to patient. Assistance with circulation Benefit to pulmonary function Benefit for strength Benefits for balance Benefits to reduce overall deconditioning Benefits of regular postioning changes Assessment & Plan: Patient mobility limited this date due to fatigue Patient is making fair progress towards inpatient therapy goals. Patient presented with decreased implementation of surgical precautions during functional mobility, requires verbal cueing to maintain precautions , reduced upright posture (rounded shoulders and forward flexed posture), decreased exercise tolerance + functional mobility tolerance , decreased aerobic capacity , decreased breathing sequencing and control during functional mobility , decreased bilateral lower extremity strength (concentric and eccentric control) , difficultly with + requires assist with functional transfers , decreased ambulation tolerance , and decreased dynamic standing balance compared to baseline presentation. Patient will continue to benefit from skilled physical therapy to assist with above mentioned impairments, functional mobility, exercise tolerance, goal progression and progression to prior level of function. Patient in a resting position at end of session, all lines intact. Patient Instruction/Education this session: Learners: Patient, Spouse Education provided: Activity outside of therapy, Balance training, Breathing exercises, Fall precautions, Functional transfers, Gait training safety, Plan of care, Positioning, Precautions/weight bearing status Plan for next session: Stairs and gait Acute PT Goals Plan of Care by Vargas Pisano DPT at 04/29/2024 9:04 AM Version 2 of 2 Problem: PT - General Goals Goal: Supine <-> Sit Transfers - Patient will perform supine to/from sit transfers with independence and without use of hospital bed features in order to improve functional mobility and safety. Outcome: Ongoing Goal: Sit <-> Stand Transfers - Patient will perform sit to/from stand transfers with independence and without an assistive device in order to improve functional mobility and safety. Outcome: Ongoing Goal: Ambulation - Patient will ambulate 150 feet with independence and least restrictive device to improve ability to safely navigate home and community. Outcome: Ongoing Plan of Care by Vargas Pisano DPT at 04/29/2024 9:05 AM Version 1 of 2 Problem: PT - General Goals Goal: Supine <-> Sit Transfers - Patient will perform supine to/from sit transfers with independence and without use of hospital bed features in order to improve functional mobility and safety. Outcome: Ongoing Goal: Sit <-> Stand Transfers - Patient will perform sit to/from stand transfers with independence and without an assistive device in order to improve functional mobility and safety. Outcome: Ongoing Goal: Ambulation - Patient will ambulate 150 feet with independence and least restrictive device to improve ability to safely navigate home and community. Outcome: Ongoing PT treatment consisted of the following to progress towards the above goal(s): PT Evaluation and Treatment Time Therapeutic Exercise Time Entry: 25 Therapeutic Activity Time Entry: 13 Treating Therapist: Vargas Pisano DPT Additional Details: PT Co-Eval/Treatment Information Co-evaluation/co-treatment performed?: No simultaneous skilled care performed Assisted by during session: RN PPE used during patient interaction: gloves, facemask Patient location at end of session: chair, RN aware, lines intact Alarms on at end of session: none, RN aware, none altered Needs in reach. Time In: 903 Time Out: 941 Total Visit Time: 38 minutes Total Treatment Time (skilled, billable minutes): 38 minutes Upon discontinuation of Acute Care Physical Therapy Services or patient discharge from the hospital this note represents the current Physical Therapy Discharge Summary. Acute Occupational Therapy Treatment Prior Gross Functional Mobility: independent Current AM-PAC score(s): CURRENT AM-PAC Activity Raw Score: 17 Based on the above AM-PAC score(s), and OT clinical judgment, discharge destination recommendation is: Home with Home Health Shower protocol education provided this date but not practiced 2/2 chest tube and cardiac wires still in place. Barriers to discharge home: Patient needs assistance with functional mobility, Patient needs assistance with ADLs, Patient needs assistance with IADLs (see note below) Mobility equipment available at home: lift chair, straight cane, rollator ADL equipment available at home: none Equipment recommendations for discharge: shower chair Current therapy frequency recommendation(s) in acute: 5 times a week Precautions and Weightbearing Status: OT Existing Precautions/Restrictions: cardiac, fall, standard sternal Telemetry, External pacemaker, Chest tube (wires) Patient Safety Communication Prior to Visit: Nursing Subjective: I like to do my own research on the topics. Pain: General Pain Documentation (Adult, OB, Peds) Presence of Pain: reports pain/discomfort Pain Location: incisional DVPRS (Defense and Veterans Pain Rating Scale) DVPRS: Rest: 2- mild pain DVPRS: Activity: 3- mild pain Objective/Observation: Vitals/Vitals Responses to Treatment: Vitals WFL with no abnormal signs or symptoms reported or observed throughout session Cognition Overall Cognitive Status: Within Functional Limits Arousal/Alertness: Appropriate responses to stimuli Orientation Level: Oriented X4 Following Commands: Follows one step commands with increased time, Follows one step commands with repetition Safety Judgment: Decreased awareness of need for safety Awareness of Errors: Good awareness of errors made Deficits: Fully aware of deficits Attention Span: Appears intact Memory: Appears intact Problem Solving: Able to problem solve independently Cognition Comments: Pt is pleasant and cooperative throughout session. ADL Assessment/Intervention: ADLs: Eating Assistance: Grooming Assistance: Bathing Assistance: Not performed Bathing Skilled Rationale (Verbal/Tactile/Visual/Demonstrati on): Compensatory techniques Bathing Intervention/Details: Patient educated on sternal surgical incision care, including: utilizing 2 fingers to gently massage incision with antibacterial soap, not spraying water directly onto incision, and utilizing clean, dry towel to gently pat incision dry. Therapist also instructed pt to avoid using lotions, oils, or cologne/perfume around incision. Pt instructed to avoid pushing/pulling on grab bars in bathroom to maintain sternal precautions while utilizing shower chair for energy conservation, and utilizing rest breaks between high MET level tasks throughout the day. Pt unable to demonstrate understanding via demonstration 2/2 medical lines. Pt and spouse did verbalize understanding. UE Dressing Assistance: Not performed UE Dressing Skilled Rationale (Verbal/Tactile/Visual/Demonstrati on): Compensatory techniques UE Dressing Intervention/Details: Pt educated on modified upper body dressing task to promote adherence of sternal precaution during this ADL task. Pt provided with demonstration to assist with carryover. Patient educated on proper process and procedure of donning/doffing post-thorax sternal binder. Patient required moder A to thread BUE into vest and manage velcro/rupal. Patient receptive via teach back method. LE Dressing Assistance: Not performed LE Dressing Skilled Rationale (Verbal/Tactile/Visual/Demonstrati on): Compensatory techniques LE Dressing Intervention/Details: Pt educated on the safety techniques of completing LE seated to decrease risk of falls and then donning underwear and pants and only standing once for energy conservation; pt verbalized good understanding. Toilet Assistance: Not performed Toilet Skilled Rationale (Verbal/Tactile/Visual/Demonstrati on): Compensatory techniques Pt educated on modified techniques to achieve more access to perineal area during toileting hygiene, including: twisting through abdomen with a lateral side bend. Pt verbalized and demonstrated understanding. Extremity Assessments: See OT Evaluation flowsheet for Extremity Measurement updates. Balance: Sitting Balance Static Sitting-Level of Assistance: Independent Dynamic Sitting-Level of Assistance: Standby Skilled Rationale: Verbal cues Skin and Edema: Skin Integrity Skin Integrity Description: Surgical incision Edema Edema: present Location: BLE Mobility Assessment/Intervention: Transfer Assessment/Intervention: Sit to Stand Transfer [place] Level: Sit->Stand: not tested Skilled Rationale: Technique of activity Skilled Intervention/Details: Sit->Stand: Pt educated on proper and safe transfer techniques to a variety of surfaces to promote adherence to sternal precautions; demonstration provided. Pt declined to demonstrate at this time. Stand to Sit Transfer [place] Level: Stand->Sit: not tested Skilled Rationale: Technique of activity Skilled Intervention/Details: Stand->Sit: Pt provided with visual demonstration to sit without use of UE and how to safely back up to surface to decrease risk of falls; pt verbalized understanding. Functional Mobility: Outcome Score(s): CURRENT [facility] Daily Activity Inpatient Short Form Putting on/Taking Off Lower Body Clothin - A Lot of Assistance Bathin - A Little Assistance Toiletin - A Little Assistance Putting on/Taking Off Upper Body Clothin - A Lot of Assistance Groomin - A Little Assistance Eatin - No Assistance CURRENT [facility] Activity Raw Score: 17 CURRENT [facility] Activity Functional Limitation/Modifier: 50.11% Currently Impaired in Daily Activity - CK Interventions: Intervention 1 Intervention Name: Tub transfer Details: Pt and spouse educated on proper and safe tub transfer techniques to decrease risk of falls and promote adherence to sternal precautions. Pt and spouse verbalized understanding. Intervention 2 Intervention Name: shower chair benefits Details: Pt and spouse educated on the benefits of a shower chair to decrease risk of falls and to promote energy conservation during bathing. Both verbalized understanding. Assessment & Plan: Pt making good progress towards established plan of care. Patient improving with incision care, bathing, lower body dressing, upper body dressing, toileting, adherence to precautions, functional transfers, and functional activity tolerance as seen above, however continues to be limited by endurance deficits, impaired balance/strength, and impaired mobility compared to baseline. Pt would benefit from additional OT services at this time, and at discharge to increase independence with functional mobility. Pt educated on precautions and self pacing on this date. Patient Instruction/Education this session: Learners: Patient Education provided: Precautions/weight bearing status Patient Instruction/Education comments: Pt recalled 100% of standard sternal precautions including no pushing, pulling, or lifting more than 10 lbs and not reaching overhead or behind back for both arms, for 6 weeks. Pt also educated on precautions throughout functional mobility and self-care tasks this date to improve learning/carryover for task. Pt verbalizes fair+ understanding. Energy conservation Education Details: Pt was provided handout and educated on energy conservation strategies to save energy during functional tasks. Pt verbalized understanding. Pt verbalized understanding and expressed practicality of education provided. Tips: The way you do a task is as important as what you do. You may need to change how and when you do a task to save energy. Consider these things when doing tasks: Plan out your daily schedule. Prioritize your tasks to get the most important things done first. Pace yourself, so you can get more done. Position and posture. Sit instead of standing when you can and use good posture. Apply these 5 Ps for saving energy and the tips below in your daily life to help make tasks easier. General tips Sit when doing a task. Standing takes more energy. Do work with your arms instead of your legs. Working with your legs takes more energy. Avoid doing activities in temperatures above 80 degrees F with humidity or below 20 degrees F. Extremes of heat or cold can have a dangerous effect on your heart. Pace yourself to save energy Get at least 6 to 8 hours of sleep each night. Rest for 20 to 30 minutes at least twice a day or 10 minutes every hour. If you get tired, stop and rest for 15 minutes, whether you have finished the task or not. Trade off between easy and hard tasks or spread a task out over the day. Ask for help if the demands on your energy are too much. Hire help, if you are able to. Avoid stress as much as you can. Never hebert. Plan for next session: shower protocol review Acute OT Goals Plan of Care by Neeraj Estrella OT at 04/29/2024 8:05 AM Version 1 of 1 Problem: OT - ADLs Goal: Lower Body Dressing - Patient will complete lower body dressing tasks with independence using adaptive equipment/compensatory strategies as needed for improved ability to complete self-care activities. Outcome: Progressing Goal: Toileting - Patient will complete toileting task with independence and adaptive equipment as needed for improved ability to safely complete self-care activities. Outcome: Progressing Goal: Bathing - Patient will perform full body bathing routine with modified independence while seated for improved ability to complete self-care activities Outcome: Progressing Problem: OT - Transfers Goal: Transfers Toilet/ Bedside Commode - Patient will transfer to/from toilet/bedside commode with independence for improved ability to safely complete ADLs. Outcome: Progressing Problem: OT - Other Goal: Precaution Adherence - Patient will demonstrate 100% adherence to precautions during all ADLs and functional transfers to promote safety during daily routine. Outcome: Progressing OT treatment consisted of the following to work and progress towards the above goal(s): OT Evaluation and Treatment Time Self Care/Home Management (ADLs) Time Entry: 40 Treating Therapist: Neeraj Estrella OT Additional Details: OT Co-Eval/Treatment Information Co-evaluation/co-treatment performed?: No simultaneous skilled care performed PPE used during patient interaction: facemask, gloves Patient location at end of session: chair, lines intact, RN aware Alarms on at end of session: Needs in reach. Time In: 804 Time Out: 844 Total Visit Time: 40 minutes Total Treatment Time (skilled, billable minutes): 40 minutes Upon discontinuation of Acute Care Occupational Therapy Services or patient discharge from the hospital this note represents the current Occupational Therapy Discharge Summary. I, Dr. Jacky Meyer, have evaluated Mr. Kruger. The EMR was reviewed. I discussed the plan of care with the residents/fellows/advanced practice providers. I have reviewed their note and agree with the plan of care as documented. S/P CABG x 3 and LAAL Progressing and discharge planning -- Jacky Meyer MD, PhD Office: [phone] Pager: [phone] Acute Occupational Therapy Treatment Prior Gross Functional Mobility: independent Current AM-PAC score(s): CURRENT AM-PAC Activity Raw Score: 19 Pt standing, walking CGA x400 Based on the above AM-PAC score(s), and OT clinical judgment, discharge destination recommendation is: Home with Home Health Barriers to discharge home: Patient needs assistance with functional mobility, Patient needs assistance with ADLs, Patient needs assistance with IADLs (see note below) Mobility equipment available at home: lift chair, straight cane, rollator ADL equipment available at home: none Equipment recommendations for discharge: (may benefit from shower chair, states has rollator) Current therapy frequency recommendation(s) in acute: 5 times a week Activity Recommendations for outside of rehab session: OOB meals, walk TID Precautions and Weightbearing Status: OT Existing Precautions/Restrictions: cardiac, fall, standard sternal, supplemental oxygen Telemetry, Wound vac, Chest tube Patient Safety Communication Prior to Visit: Nursing Subjective: I think it rode up a little when I was in bed Re: postthorax [place] 2-3/10 Pain: General Pain Documentation (Adult, OB, Peds) Presence of Pain: not present: non-verbal indicator of pain/discomfort Presence of Pain Score (Auto-calculated): 0 Objective/Observation: Vitals/Vitals Responses to Treatment: Pt supine in bed upon arrival to room Supine 140/80 Sit 143/82, assymptomatic O294%, HR 99-112 Pt left seated in chair with call light/needs in reach. O2 Device: nasal cannula Flow (L/min): 3 Cognition Overall Cognitive Status: Within Functional Limits Cognition Comments: Pt pleasant, agreeable to OT, good recall of precautions ADL Assessment/Intervention: ADLs: Eating Assistance: Grooming Assistance: Stand by Grooming Location: standing at sink Grooming Deficit: Activity tolerance, SOB, Initiation, Follows safety/precautions Grooming Skilled Rationale (Verbal/Tactile/Visual/Demonstrati on): Facilitate positioning, Facilitate postural control, Cues for increased safety Grooming Intervention/Details: cue on position close to sink for hand/face washing, oral care Bathing Assistance: UE Dressing Assistance: LE Dressing Assistance: Minimal LE Dressing Location: seated in chair LE Dressing Deficit: Don/doff L sock, Don/doff R sock LE Dressing Intervention/Details: ed on figure 4 tech, pt able to manage RLE, min for LLE Toilet Assistance: Stand by Toileting Location: toilet Extremity Assessments: See OT Evaluation flowsheet for Extremity Measurement updates. Balance: Sitting Balance Static Sitting-Level of Assistance: Independent Dynamic Sitting-Level of Assistance: Standby Skilled Rationale: Positioning Standing Balance Static Standing-Level of Assistance: Contact guard Dynamic Standing-Level of Assistance: Contact guard Standing-Balance Support: 4 wheeled walker Skilled Rationale: Positioning, Verbal cues, Cues for increased safety Standing Balance Skilled Intervention/Details: standing x5 mins forADL, cue on WW place Skin and Edema: Mobility Assessment/Intervention: Supine to Sit Mobility [place] Level: Supine->Sit: moderate assist (50% patient effort) Bed Features/Set-up: Supine->Sit: Head of bed elevated Skilled Rationale: Positioning, Sequencing, Hand placement, Verbal cues, Facilitate anterior shift, Maintain precautions Skilled Intervention/Details: Supine->Sit: cues to not push through arms Transfer Assessment/Intervention: Sit to Stand Transfer [place] Level: Sit->Stand: contact guard assist Skilled Rationale: Arm in arm, Facilitate anterior shift, Positioning, Sequencing, Hand placement, Verbal cues, Cues for increased safety, Maintain precautions Skilled Intervention/Details: Sit->Stand: from bed x2, toilet, recliner Stand to Sit Transfer [place] Level: Stand->Sit: contact guard assist Skilled Rationale: Positioning, Sequencing, Hand placement, Verbal cues, Controlled descent for sitting, Maintain precautions Toilet Transfer [place] Level: Toilet: contact guard assist Skilled Rationale: Positioning, Sequencing, Verbal cues, Facilitate anterior shift, Controlled descent for sitting, Maintain precautions Skilled Intervention/Details: Toilet: cue to not use grab bar Functional Mobility: Functional Mobility [place] Level: Functional Mobility/Gait: contact guard assist Assistive Device: Functional Mobility/Gait: 4 wheeled walker Functional Mobility Distance: Distance needed to access restroom, Distance needed for limited community mobility Ambulation Distance (Feet): (20+400) Functional Mobility Deficits: Activity tolerance, Initiation, Shortness of breath Functional Mobility Skilled Rationale: Cues for increased safety, Walker management/safety Skilled Intervention/Details - Functional Mobility/Gait: pacing cues to stop standing rest breaks, self awareness Outcome Score(s): CURRENT [facility] Daily Activity Inpatient Short Form Putting on/Taking Off Lower Body Clothin - A Little Assistance Bathin - A Little Assistance Toiletin - A Little Assistance Putting on/Taking Off Upper Body Clothin - A Little Assistance Groomin - A Little Assistance Eatin - No Assistance CURRENT [facility] Activity Raw Score: 19 CURRENT [facility] Activity Functional Limitation/Modifier: 42.80% Currently Impaired in Daily Activity - CK Interventions: Intervention 1 Intervention Name: sternal precautions Details: Pt recalled 100% of standard sternal precautions including no pushing, pulling, or lifting more than 10 lbs and not reaching overhead or behind back for both arms, for 6 weeks. Pt also educated on precautions throughout functional mobility and self-care tasks this date to improve learning/carryover for task. Pt demonstrates fair+ understanding. Intervention 2 Intervention Name: mobility promtoed Details: Pt educated on importance of functional mobility, encourage to mobilize with staff outside of therapy, TID with pt voicing understanding. Assessment & Plan: Patient to continue to progress towards LTGs as evidence by improved performance with mobility Patient continues to be limited by SOB, CHANDRA Patient will continue to benefit from skilled OT for progress UB drfessing to increase independence with self care tasks & reduced burden of care at discharge. Discharge plan Home Patient Instruction/Education this session: Learners: Patient Education provided: Activity outside of therapy, Balance training, Bed mobility, Functional transfers, Positioning, Precautions/weight bearing status, Safety Teaching method: Verbal Education/Instruction Plan for next session: UB dressing, post thorax Acute OT Goals Plan of Care by JENNIFER Garza at 04/28/2024 12:43 PM Version 1 of 1 Problem: OT - ADLs Goal: Lower Body Dressing - Patient will complete lower body dressing tasks with independence using adaptive equipment/compensatory strategies as needed for improved ability to complete self-care activities. Outcome: Progressing Goal: Grooming - Patient will complete grooming in standing with independence for improved ability to safely complete ADLs. Outcome: Progressing Goal: Toileting - Patient will complete toileting task with independence and adaptive equipment as needed for improved ability to safely complete self-care activities. Outcome: Progressing Problem: OT - Transfers Goal: Transfers Toilet/ Bedside Commode - Patient will transfer to/from toilet/bedside commode with independence for improved ability to safely complete ADLs. Outcome: Progressing Problem: OT - Endurance Goal: Endurance Functional Mobility - Patient will complete distance needed for limited community mobility with no rest breaks for improved tolerance to safely complete I/ADL's Outcome: Progressing Problem: OT - Other Goal: Precaution Adherence - Patient will demonstrate 100% adherence to precautions during all ADLs and functional transfers to promote safety during daily routine. Outcome: Progressing OT treatment consisted of the following to work and progress towards the above goal(s): OT Evaluation and Treatment Time Self Care/Home Management (ADLs) Time Entry: 30 Therapeutic Activity Time Entry: 11 Treating Therapist: JENNIFER Garza Additional Details: OT Co-Eval/Treatment Information Co-evaluation/co-treatment performed?: No simultaneous skilled care performed PPE used during patient interaction: facemask, gloves Patient location at end of session: chair Alarms on at end of session: RN aware Needs in reach. Time In: 1243 Time Out: 1324 Total Visit Time: 41 minutes Total Treatment Time (skilled, billable minutes): 41 minutes Upon discontinuation of Acute Care Occupational Therapy Services or patient discharge from the hospital this note represents the current Occupational Therapy Discharge Summary. CVICU DAILY PROGRESS NOTE. HISTORY OF PRESENT ILLNESS: Mr. Kruger is a 53 y.o. male who has a pertinent past medical history including HTN, HLD, DM, PFO s/p closure in July of 2023, cardio embolic stroke June 2023, CAD and ischemic cardiomyopathy. He presented with symptoms of chest pain, anxiety, and dry cough, and was found to have severe multi-vessel CAD. He is now s/p CABG with Jacky Meyer on 04/26/24. DATE OF SURGERY: 04/26/24 PROCEDURE: CABG x 3 (NICE-LAD, [id number]) , LAAL SURGEON: Dr. Jacky Meyer POD: 2 Code Status:Full Code 24-hour interval history: - Continuing pain control issues overnight. Scheduled robaxin added - CXR with atelectasis, left lower pleural effusion - Hylton removed. Voiding Hospital Course: 04/26/24: Arrival to CVICU after CABG, extubated 04/28/24: OOB, Mediastinal CT x #1 and 2 removed. Pleural left in. Plan for 04/28/2024: - Oxycodone to 10-15 mg q3 PRN. Try to start weaning.. - Remove pacer wires - Remove mediastinal chest tubes #1 and 2 after pacing wires removed - Follow up on urine cultures. - Start empiric abx for UTI with ceftriaxone 1gm q 24 hrs x 3 days (EOT 04/30) - Aggressive pulm hygiene for atelectasis - Wean O2 for sats > 92% - Consider diuresis this afternoon - PT/OT, OOB Discharge Planning/DENISE/Discharge Readiness: Anticipated, TBD pending clinical progression. Follow up: Emailed 04/28 Imaging follow up plan: CXR PA/LAT (ordered) Ambulatory referral to cardiac rehab order placed:Yes Dr. Jacky Meyer recommends home health services upon discharge including PT, OT, and residential as indicated SURGICAL PLAN Pre-op CLARITZA: PRE-INTERVENTION SUMMARY Pt presents for CABG: LV - low normal systolic function, EF approximately 50%. No RWMAs seen. Normal diastolic function RV - Mildly dilated, normal systolic function Interatrial septum - ASD occlusion device seen, well seated; trace flow seen around device MV - normal annulus, mild MR, no MS AV - trileaflet, trace AI, no TV - normal annulus, no TR Aorta - no significant calcification or atheroma Post-op CLARITZA: POST-INTERVENTION SUMMARY S/P CABG: LV - improved systolic function, no RWMAs RV - unchanged MV - slightly worsened MR AV and TV are unchanged No significant effusion seen. Chest Tube Mgmt: Left pleural Mediastinal Y'd Plan for today:Mediastinal drains # 1 and 2 removed 04/28 Pleural to water seal Pacing Wires: Ventricular - Removed 04/28 Sutures/Roxana Plan: Prevena to MSI. Remove on POD 7 or prior to discharge PA/LAT Chest X-ray: To be ordered once all chest tubes are removed OT shower complete? No consult OT once all tubes and wires are out. SYSTEM BASED PLAN . Neurological: Acute Post-Operative Pain -- DVPRS: Rest: 0- no pain (04/28 1200) DVPRS: Activity: 0- no pain (04/28 1200) DVPRS: Rest: 0- no pain (04/28 1200) DVPRS: Activity: 0- no pain (04/28 1200) - Scheduled tylenol, gabapentin, robaxin - PRN oxycodone 10-15 mg q3 prn. Begin weaning oxy Agitation/Delirium- Overall CAM-ICU: Negative Calm and cooperative. Delirium precautions Day/night sleep cycle, sleep hygiene Insomnia, chronic: - Melatonin 6 mg QHS Cardiovascular: Multi-vessel CAD & ischemic cardiomyopathy s/p CABG x 3 (NICE-LAD, [id number]) , LAAL 04/26/24 - Mediastinal CT removed, pleural to water seal today - Metoprolol 25mg q 12 hr , atorvastatin 40mg qHS - Continue sternotomy precautions. Hypovolemic Vasoplegic Vasopressor(s): none Shock - Resolved Hx/o PFO s/p closure 07/2023 Hx/o Cardio embolic hemorrhagic stroke 06/2023 - Residual L hand/leg numbness, incoordination - Not on anticoagulation Hypertension SBP goal <140 Home medications: metoprolol 12.5 mg Q12h, Amlodipine 10mg daily, Ramipril 5 mg daily, Hydralazine 10 mg TID PRN - Metoprolol 25 mg Hyperlipidemia hold home Pravastatin 40 QHS - Atorvastatin 40 mg QHS Prophylactic Antiarrythmic: Yes - Amiodarone Pulmonary: Extubated, on 2L - Wean O2, pulm hygiene/IS Renal: At Risk for RAMANDEEP d/t cardiac surgery Baseline Creatinine: 0.60 Baseline GFR: Estimated Creatinine Clearance: 96 mL/min (by C-G formula based on SCr of 0.94 mg/dL). Urine output: acceptable Monitor chemistries Avoid nephrotoxic agents. - Consider diuresis this afternoon Urinary Tract Infection r/t indwelling urinary catheter - UA 04/27: + Leuks - Begin empiric antibiotics - Urine culture in process - See ID Electrolyte abnormalities: Hyponatremia- resolved Hypomagnesemia - Keep Mg close to 3. Replace per protocol Gastrointestinal: Acute Post Operative Constipation Last Bowel Movement: 04/26/24. Bowel regimen in place with scheduled miralax and senna, increased PRN dulcolax suppository Current Diet Orders Procedures DIET HEART HEALTHY - 4 GM SODIUM Carb Controlled Standing Status: Standing Number of Occurrences: 1 Order Specific Question: Additional Modifier: Answer: Carb Controlled Morbid Obesity - Pt. has class II obesity (BMI 35-39.9). Follow with PCP for dietary and lifestyle modifications : Body mass index is 36.84 kg/m . Integumentary/Musculoskeletal Active Incisions Wounds - Wound Sheath Site 03/29/24 1309 Right Radial (30) Wound Incision 04/26/24 0824 Left;Lower Leg (2) Wound Incision 04/26/24 0824 Midline Chest (2) Endocrinology DM2, Post-Operative Stress Induced Hyperglycemia - Postoperative Insulin gtt, transition to SSI when appropriate HgbA1c= 04/05/2024: Hemoglobin A1C HPLC 7.5 - Home diabetes meds: glimepiride, trulicity, metformin - Endo consulted for insulin mgmt/recs - Glargine 20u daily and SSI Hematology Post-operative Acute Blood Loss Anemia- improving CTM daily H/H, no indication for transfusion at this time Monitor chest tube output No acute bleeding concerns at this time Anticoagulation Status/Plan Not needed per surgical team Infectious Disease Post-Op Antimicrobial Therapy - Cefazolin 24 hrs completed Postoperative leukocytosis and 2/2 Urinary Tract Infection - Tmax 101.5 and WBC 21.4 (17) on 04/28 - Pt denies urinary complaints - UA sent 04/28: + leuks Urine culture: pending - Start empiric treatment ceftriaxone 1 gm q 24 hrs x 3 days (EOT 04/30) - Will continue to monitor WBC. Complexity Obesity Body mass index is 36.84 kg/m . - Follow with PCP for dietary and lifestyle modifications. ICU Liberation Checklist: ABCDEF Bundle Reviewed: [x] Yes [] No Breathing: SBT: yes [] Passed [] Failed [] Does not meet criteria [x] N/A SAT: [] Yes [] No [x] N/A Vascular Access/Line/Tubes/Drains: Lines to be removed: CVC, Mariaelena, hylton See LDA's below Assessed insertion site: [x] Yes [] No Choice of Analgesia/Sedation: Pain: [x] Controlled [] Uncontrolled Continuous Infusions: [] Sedation [] Analgesia [] NMB [x] None Delirium: Overall CAM-ICU: Negative CAM: [] Positive [x] Negative [] Unable to assess Restraints: [x] None [] Soft limb [] Nohelia mitts [] Other Primary person of contact Dalila Kruger, spouse Prophylaxis Bundle: HOB: 30 degrees Stress ulcer ppx: [] Yes [] Therapeutic [] Home regimen [x] No, not indicated Chemical DVT ppx: [x] Yes [] No, SCDs ordered Therapy Services: SONOGRAPHY TECHNOLOGIST: [] Swallow [] Cognitive Eval [] Speaking Valve [x] N/A Early Mobility: PT/OT consulted: [x]Yes [] No, d/t clinical status [] No, pt is independent Current Mobility Status: PT/OT to work with pt. OOB, Bedside chair. OBJECTIVE VITALS: Blood pressure 117/71, pulse 87, temperature 98.6 F (37 C), temperature source Oral, resp. rate 18, height 1.626 m (5' 4), weight 97.3 kg (214 lb 9.6 oz), SpO2 94%. PHYSICAL EXAM: General: Well appearing, NAD, denies pain at this time except for deep breath or cough. HEENT: NCAT. No scleral icterus. MMM. CV: RRR. No murmur. Resp: Lungs CTAB with diminished bases. No wheezing or crackles. On 2 L NC GI: Soft, rounded, non-distended. Non-tender, no rebound or guarding. +BS Ext: Warm and well-perfused. No cyanosis. Trace BL LE edema Skin: Dry and inact. No jaundice. Neuro: A&Ox4. Awake, alert, appropriate. CN's grossly intact; no facial droop, no speech difficulty. SURGICAL INCISIONS MSI with prevena in place L leg SVG site PROPERTY CUSTODIAN, surgical glue intact, mild ecchymosis surrounding surgical sites and along tunnel No groin sutures MIRA Waters Cardiovascular ICU, Anesthesiology PGY3 04/28/24 12:36 PM Images from the original note were not included. 04/28/24 1135 Patient Choice for Post-Acute Providers Resumption of care? No Establishing care? Yes Level of care for choice Home Health Care Preferred geographic region Discussed and honored Source of list Aidin Is the provider part of a joint venture or have a financial relationship with discharging hospital? No Only one agency available. Myriam Aparicio RCP, [facility] Clinical Diabetes Nurse [phone] Images from the original note were not included. 04/28/24 1134 Final Discharge Planning Discharge Disposition Home with Home Health Community Agency Name(s) For Handoff [facility] Phone For Handoff [phone] Fax For Handoff [phone] Myriam Aparicio RCP, [facility] Clinical Diabetes Nurse [phone] Primary CM requested assistance in locating a home care agency. 1053 AM - Telephone call to Home Health Services [facility] @ . Left a voicemail for [facility] intake liaison. Requested a call back. Name and number provided. 1056 AM - Telephone call to [facility] @ [phone]. 1112 AM - Telephone call from Tammie @ [facility] @ . Tammie states that they can accept the patient for a SOC on Thursday, 05.03.2024. I provided Dr. Meyer's office and fax numbers to [facility]. Primary CM updated. ISIS Husain, RN Clinical Diabetes Nurse Images from the original note were not included. I sent out referral to 20 agencies, and none are available to serve pt. I asked for assistance from group lead. CM will continue to follow. Myriam Aparicio RCP, [facility] Clinical Diabetes Nurse [phone] Physical Therapy Attempt Note 04/28/2024 PT Therapy Completed: Attempted Attempted Reason: Patient is not medically optimized to tolerate therapy program (Bedrest for wires pulled then having a chest tube removed.) Donal Alas PT Time In: 1020 Time Out: 1020 Total Visit Time: 0 minutes Total Treatment Time (skilled, billable minutes): 0 minutes Occupational Therapy Attempt Note 04/28/2024 OT Therapy Completed: Attempted Attempted Reason: (Pt up with Cardiac Rehab, 10:24 pt in bed, wires pulled & getting CT pulled, will reattempt OT when able.) JENNIFER Garza Time In: 915 Time Out: 915 Total Visit Time: 0 minutes Total Treatment Time (skilled, billable minutes): 0 minutes Inpatient Cardiopulmonary Rehab Follow Up Visit AND Activity Session Completed. RN approved, as tolerated, and patient agreeable to visit. Patient reports feeling alright without complaints. Patient demonstrated IS x 3 up to 1250 mL with proper technique. Activity Session Vitals: 04/28/24 0900 04/28/24 0923 Vital Signs Pulse (Heart Rate) 93 (pre amb) 98 (post amb) Heart Rate Source Monitor Monitor BP 154/78 170/79 MAP (mmHg) 105 mmHg (!) 113 mmHg BP Method Automatic Automatic BP Location Left arm Left arm BP Position Sitting Lying O2 Sat (%) 92 % 95 % O2 Device nasal cannula nasal cannula Flow (L/min) 3 3 Activity/Level of Assistance Amb in damico / CGA, 4ww, chair follow Ambulation Distance (feet) 400 Symptoms Noted During/After Activity SOB 2/10 Positioning Supine HOB, call light within reach 2 Chest tubes, NPWT, 3L oxygen, telemetry all intact upon leaving the room Activity session details: Patient required minAx2 for bed transfers and CGA for sit to stand and ambulation. Patient walked with consistent pace and took 2 standing rest breaks. Patient returned to room with no issues and reported SOB 2/10 as only symptom. RN present upon returning to room. Encouraged continued ambulation and discussed appropriate activity progression. Discharge education reviewed with the patient. Patient s questions/concerns addressed. 2 bottles of hibaclens (CHG) were provided to the patient and family for incision care at home. Patient and attended [facility] Discharge Class today, instructed by the Inpatient Cardiopulmonary & Vascular Rehab team. Questions/concerns were addressed and topics below were discussed. 1. Activity Restrictions s/p Sternotomy (Standard) for 6 weeks 2. Rest Time 3. Activity Guidelines/Recommendations 4. Nutrition 5. Medications 6. Coughing and Deep Breathing 7. Incision Care 8. Post Surgery Blues 9. When to Call the Doctor Bharath Borges MS, CEP [phone] IP Cardiopulmonary & Vascular Rehab Stacy Morales MS CEP Inpatient Cardiopulmonary & Vascular Rehab [facility] Inpatient Diabetes Consults - Progress Note- For provider quality assurance monitor body: QGENDA : TEAM 2 Assessment Uncontrolled Type 2 Diabetes Mellitus (T2DM) admitted for CABG. We are consulted for post-op glucose control. A1c on 04/05/24: 7.5% He is Post-CABG, transitioned off of insulin drip, with 20u glargine long-acting and standard sliding scale. Sugars controlled, no changes at this time. Diabetes Inpatient Plan: Basal: Insulin glargine: 20 units q24H Prandial: Insulin lispro: 1 unit per 10 gram carbs qachs & prn Correction: Insulin lispro: 1 unit(s) per every 50 mg/dL above 150 mg/dL qachs We will review glucoses; however, primary team should continue to check blood glucoses daily and reach out to our service with urgent issues DIABETES DISCHARGE PLAN Please contact our team on day of discharge for definitive recs. QGENDA :TEAM 2 Tentative discharge plan: (Please use the Diabetes Discharge Order Set: Diabetes Orders - for those patients discharged on INSULIN) - If orals or non-insulin injectables recommended, will need to order them outside of the Diabetes Orderset. Discharge Diet: TBD Patient Education: Your target blood sugar is 80-130 mg/dl fasting and under 180 mg/dl nonfasting. Patient needs new insulin scripts at discharge: TBD pending insulin requirements . Follow up needed: PCP within 1- 2 weeks CC: CABG Date of admission: 04/26/2024 Admission diagnosis: CAD (coronary artery disease), la posta coronary artery [I25.10] CAD (coronary artery disease) [I25.10] History of Present Illness: Antonia Kruger is a 53 y.o. year old male with Type 2 Diabetes Mellitus (T2DM) diagnosed in 2019 who is seen in consultation at the request of Jacky Meyer MD, PhD for assistance with evaluation of postoperative hyperglycemia and to make treatment recommendations. Insulin drip stopped overnight. He also has had several lines including swan carmen and a-line removed. He feels well and has been up with PT and is using his incentive spirometer. No complaints aside from chest pain with coughing. Current insulin orders: Basal: glargine 20 units Q24H Prandial: 1 unit per 10 gram carbs Correction: 1 unit per 50 mg/dl above 150 mg/dl Insulin dosing over the last 24 hours: Infusion: 2 units/hour Glargine: 20 = 20 units Lispro: 1 = 1 units DIET HEART HEALTHY - 4 GM SODIUM Carb Controlled Glucose Review: Glucose Date Value Ref Range Status 04/28/2024 130 (H) 70 - 99 mg/dL Final Glucose (POC Device) Date Value Ref Range Status 04/27/2024 178 (H) 70 - 99 mg/dL Final 04/27/2024 148 (H) 70 - 99 mg/dL Final 04/27/2024 137 (H) 70 - 99 mg/dL Final Physical Exam Vital Signs: BP 152/75 Pulse 90 Temp 98.3 F (36.8 C) (Oral) Resp 17 Ht 1.626 m (5' 4) Wt 97.3 kg (214 lb 9.6 oz) SpO2 92% BMI 36.84 kg/m Smoking Status Never , Wt Readings from Last 3 Encounters: 04/26/24 97.3 kg (214 lb 9.6 oz) 04/05/24 97.9 kg (215 lb 12.8 oz) 03/29/24 95.7 kg (210 lb 15.7 oz) Body mass index is 36.84 kg/m . O2 Sat (%): [90 %-95 %] 92 % O2 Device: nasal cannula Flow (L/min): [1-2] 2 General/Constitutional: male, who looks his stated age of 53 y.o.. No acute distress. Cardiac: regular rhythm, normal rate. Normal S1, S2. No murmurs, rubs or gallops. Pulmonary/Chest: Respirations even and unlabored with normal respiratory effort. Abdomen: Soft, non-tender, non-distended, normoactive bowel sounds. No organomegaly. No lipohypertrophy/lipodystrophy. Extremities: No cyanosis or clubbing. no peripheral edema. Neurological: Conscious, alert and interactive. Skin: Skin is warm and dry. No ulcers or lesions on the feet and nails are intact. Psychiatric: Appropriate mood and affect for his clinical situation. Associated attestation - Eyal Stafford MD - 04/28/2024 1:11 PM EST ATTENDING ATTESTATION: The patient was seen and examined independently by me at bedside. I have done the clinical exam personally and have worked together in formulating the plan of care along with Dr Almeida. The case including the history, physical examination, assessment, and plan was discussed in detail with Dr Almeida. I have reviewed the patient's charts and labs in detail. I agree with Dr Almeida's assessment and plan. The patient was seen on 04/28/2024 Eyal Stafford MD Acute Physical Therapy Evaluation Prior Gross Functional Mobility: independent Current AM-PAC score(s): CURRENT AM-PAC Mobility Raw Score: 12 Based on the above AM-PAC score(s) and PT clinical judgment, patient is a good candidate for discharge to (Anticipate home pending safe completion of further mobility with assessments prior to discharge with final recommendations closer to discharge.) Mobility equipment available at home: lift chair, straight cane, rollator ADL equipment available at home: none Equipment needed for discharge: Current therapy frequency recommendation in acute: PT Therapy Frequency: 5 times a week Precautions and Weightbearing Status: Existing Precautions/Restrictions: cardiac, fall, standard sternal, supplemental oxygen Urinary catheter, Telemetry, Arterial line, Central line, Chest tube, Wound vac, External pacemaker Patient Safety Communication Prior to Visit: Nursing (Zunilda) Subjective: Pt agreeable to session reporting he walked this morning already Pain: General Pain Documentation (Adult, OB, Peds) Presence of Pain: reports pain/discomfort (RN addressing) Pain Location: incisional DVPRS (Defense and Veterans Pain Rating Scale) DVPRS: Rest: 2- mild pain DVPRS: Activity: 2- mild pain Home Setting Residence: House Lives With: spouse Patient reported support for discharge plannin hour physical assistance, 24 hour supervision First floor setup: half bath Second floor setup: walk in shower Number of stairs to enter home: 3 Number of stairs in home: flight to second floor Stair Railings at Home: entry - present on both sides, interior - with rail Mobility Equipment Available: lift chair, straight cane, rollator ADL Equipment Available: none Home Environment Details: Pt notes multiple family members are available to assist Previous Level of Function Gross Functional Mobility: independent Assistive Device: none used Prior level ADL Overview: Independent with all ADLs Dominant Hand: Right Bed Mobility: independent Transfers: independent Stairs: independent Ambulation: independent with all needs Prior Level of Function Details: denies recent falls 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[employer]) Objective/Observation: Vitals/Vitals Responses to Treatment: Stable with session Cognition Overall Cognitive Status: Within Functional Limits Vision Screen Currently wearing corrective lenses: No Speech Speech: no gross deficits noted Hearing Hearing: no gross deficits noted Extremity Assessments: RLE Assessment RLE Assessment: Within Functional Limits LLE Assessment LLE Assessment: Within Functional Limits Mobility Assessment: Sit to Supine Mobility [place] Level: Sit->Supine: maximum assist (25% patient effort) Physical Assist: Sit->Supine: 2 person assist Skilled Rationale: Positioning, Sequencing, Verbal cues, Tactile cues, Energy conservation, Breathing strategies Balance: Sitting Balance Static Sitting-Level of Assistance: Contact guard Dynamic Sitting-Level of Assistance: Contact guard Standing Balance Static Standing-Level of Assistance: Contact guard Dynamic Standing-Level of Assistance: Contact guard Skilled Rationale: Positioning, Sequencing, Verbal cues, Tactile cues, Energy conservation, Breathing strategies Transfer Assessment: Sit to Stand Transfer [place] Level: Sit->Stand: minimum assist (75% patient effort) Physical Assist: Sit->Stand: 1 person + 1 person to manage equipment Skilled Rationale: Positioning, Sequencing, Verbal cues, Tactile cues Stand to Sit Transfer [place] Level: Stand->Sit: minimum assist (75% patient effort) Physical Assist: Stand->Sit: 1 person + 1 person to manage equipment Skilled Rationale: Positioning, Sequencing, Verbal cues, Tactile cues Gait/Functional Mobility: Gait Assessment [place] Level: Gait: contact guard assist Physical Assist: Gait: 1 person + 1 person to manage equipment Assistive Device: Gait: rollator Ambulation Distance (Feet): 175 Gait Deviations Identified: decreased debra, decreased gait speed, decreased step length, decreased stride length Gait Skilled Rationale: verbal, tactile, upright posture, improve foot placement Stairs: Outcome Score(s): CURRENT [facility] Basic Mobility Inpatient Short Form Turning over in bed: 1 - Total Assistance Moving from lying on back to sittin - Total Assistance Moving to and from bed to chair: 3 - A Little Assistance Sitting/standing from chair: 3 - A Little Assistance Walk in hospital room: 3 - A Little Assistance Climbing 3-5 steps with a railin - Total Assistance CURRENT [facility] Mobility Raw Score: 12 CURRENT [facility] Mobility Functional Limitation: 68.66% Impaired in Basic Mobility Interventions: Assessment & Plan: Patient was admitted for CABG and seen for therapy evaluation related to Post-op recovery s/p open heart surgery with associated deconditioning and weakness.. Exam findings include impairments in: Strength, Balance, Posture, Transfers, Gait/Locomotion, Aerobic capacity/endurance. These impairments contribute to functional limitations including Decreased ambulation distance/endurance, Limited standing tolerance, Difficulty with bed mobility, Difficulty with transfers, Decreased functional mobility. Current clinical presentation is Evolving - changing/inconsistent clinical characteristics (Moderate). Patient history factors impacting Plan Of Care include . Patient will benefit from skilled physical therapy to address these impairments, functional limitations, and participation restrictions and has good rehab potential to achieve therapy goals. Planned Therapy Interventions: balance training, bed mobility training, edema control, endurance, functional activity tolerance, gait training, strengthening, transfer training Patient Instruction/Education this session: Learners: Patient Education provided: Precautions/weight bearing status Teaching method: Verbal Education/Instruction Learner response: States/Identifies/Teaches back Plan for next session: (Gait) Acute PT Goals Plan of Care by Donal Alas PT at 04/27/2024 12:37 PM Version 1 of 1 Problem: PT - General Goals Goal: Supine <-> Sit Transfers - Patient will perform supine to/from sit transfers with independence and without use of hospital bed features in order to improve functional mobility and safety. Outcome: Progressing Goal: Sit <-> Stand Transfers - Patient will perform sit to/from stand transfers with independence and without an assistive device in order to improve functional mobility and safety. Outcome: Progressing Goal: Ambulation - Patient will ambulate 150 feet with independence and least restrictive device to improve ability to safely navigate home and community. Outcome: Progressing PT treatment consisted of the following to progress towards the above goal(s): PT Evaluation and Treatment Time PT Evaluation (Moderate) Time Entry: 27 Evaluating Therapist: Donal Alas PT Additional Details: PT Co-Eval/Treatment Information Co-evaluation/co-treatment performed?: Yes, simultaneous billable skilled care was necessary due to medical complexity and functional deficits Other discipline: OT Rationale for need to co-eval/treat: postural control Evaluation Complexity Components History: High (3 personal factors and/or comorbidities) Body Systems Review: Moderate (Addressing a total of 3 or more elements) Clinical Presentation: Evolving - changing/inconsistent clinical characteristics (Moderate) Clinical Decision Making Complexity: Moderate Time In: 1015 Time Out: 1042 Total Visit Time: 27 minutes Total Treatment Time (skilled, billable minutes): 27 minutes Assisted by during session: OT PPE used during patient interaction: gloves Patient location at end of session: bed with head of bed elevated Alarms on at end of session: none (Per RN) Needs in reach. Upon discontinuation of Acute Care Physical Therapy Services or patient discharge from the hospital this note represents the current Physical Therapy Discharge Summary. Acute Occupational Therapy Evaluation Prior Gross Functional Mobility: independent Current AM-PAC score(s): CURRENT AM-PAC Activity Raw Score: 14 Based on the above AM-PAC score(s) and OT clinical judgment, discharge destination recommendation is: (Anticipate Pt will progress well for d/c home with family assist prn) Mobility equipment available at home: lift chair, straight cane, rollator ADL equipment available at home: none Equipment recommendations for discharge: to be determined Current therapy frequency recommendation(s) in acute: 5 times a week Activity Recommendations for outside of rehab session: OOB to chair for all meals Precautions and Weightbearing Status: OT Existing Precautions/Restrictions: cardiac, fall, standard sternal, supplemental oxygen Urinary catheter, Telemetry, Arterial line, Chest tube, Wound vac, External pacemaker Patient Safety Communication Prior to Visit: Nursing Subjective: Pt notes I'm realy tired agreeable to therapy Pain: General Pain Documentation (Adult, OB, Peds) Presence of Pain: reports pain/discomfort Pain Location: incisional DVPRS (Defense and Veterans Pain Rating Scale) DVPRS: Rest: 3- mild pain DVPRS: Activity: 3- mild pain Home Setting Residence: House Lives With: spouse Patient reported support for discharge plannin hour physical assistance, 24 hour supervision First floor setup: half bath Second floor setup: walk in shower Number of stairs to enter home: 3 Number of stairs in home: flight to second floor Stair Railings at Home: entry - present on both sides, interior - with rail Mobility Equipment Available: lift chair, straight cane, rollator ADL Equipment Available: none Home Environment Details: Pt notes multiple family members are available to assist Previous Level of Function Gross Functional Mobility: independent Assistive Device: none used Prior level ADL Overview: Independent with all ADLs Dominant Hand: Right Bed Mobility: independent Transfers: independent Stairs: independent Ambulation: independent with all needs Prior Level of Function Details: denies recent falls 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 O2 Device: nasal cannula Flow (L/min): 2 Vision Screen Currently wearing corrective lenses: No Visual Impairments Observed?: No Speech Speech: no gross deficits noted Successful Methods (Communication Strategies): verbal speech Hearing Hearing: no gross deficits noted Cognition Overall Cognitive Status: Within Functional Limits Arousal/Alertness: Appropriate responses to stimuli Orientation Level: Oriented X4 Following Commands: Follows all commands and directions without difficulty Safety Judgment: Good awareness of safety precautions Awareness of Errors: Good awareness of errors made Deficits: Fully aware of deficits Attention Span: Appears intact Memory: Appears intact ADLs: ADL Anticipated Performance (ADLs not directly observed this session): Eating, Bathing, UE Dressing, LE Dressing, Toileting Eating Assistance: Independent Eating Location: chair Grooming Assistance: Contact guard assist Grooming Location: standing at sink Grooming Deficit: Balance, Activity tolerance Grooming Skilled Rationale (Verbal/Tactile/Visual/Demonstrati on): Facilitate positioning, Facilitate postural control, Setup Grooming Intervention/Details: Pt stands at tall sink to brush teeth, CGA for balance Bathing Assistance: Moderate Bathing Location: seated on shower chair UE Dressing Assistance: Moderate UE Dressing Location: seated in chair LE Dressing Assistance: Maximal LE Dressing Location: seated in chair Toilet Assistance: Total Toileting Location: ([place]) Extremity Assessments: RUE Assessment Right UE Assessment Details: WFL within sternal precautions LUE Assessment Left UE Assessment Details: WFL within sternal precautions Balance: Sitting Balance Static Sitting-Level of Assistance: Contact guard Dynamic Sitting-Level of Assistance: Contact guard Skilled Rationale: Finding/maintaining midline positioning, Maintain precautions Standing Balance Static Standing-Level of Assistance: Contact guard Dynamic Standing-Level of Assistance: Contact guard Standing-Balance Support: 4 wheeled walker Skilled Rationale: Positioning, Verbal cues, Facilitate anterior shift, Full extension to upright positioning/posture Standing Balance Skilled Intervention/Details: Pt stands at tall sink in room x3 minutes while participating in functional tasks, no LOB noted Neuro: Sensation Sensation Comments: Pt notes numbness to Lt. hand first 2 digits, present since stroke Mobility Assessment: Sit to Supine Mobility [place] Level: Sit->Supine: maximum assist (25% patient effort) Physical Assist: Sit->Supine: 2 person assist Bed Features/Set-up: Sit->Supine: Flat Skilled Rationale: Positioning, Sequencing, Hand placement, Verbal cues, Technique of activity, Maintain precautions Transfer Assessment: Sit to Stand Transfer [place] Level: Sit->Stand: minimum assist (75% patient effort) Physical Assist: Sit->Stand: 1 person + 1 person to manage equipment Skilled Rationale: Positioning, Sequencing, Hand placement, Verbal cues, Facilitate anterior shift, Full extension to upright positioning/posture, Maintain precautions Skilled Intervention/Details: Sit->Stand: Cues for anterior weight shift to bring COG over JUSTINE and promote forward momentum into upright stand. Stand to Sit Transfer [place] Level: Stand->Sit: minimum assist (75% patient effort) Physical Assist: Stand->Sit: 1 person + 1 person to manage equipment Skilled Rationale: Positioning, Sequencing, Hand placement, Verbal cues, Controlled descent for sitting Skilled Intervention/Details: Stand->Sit: cues for use of eccentric control Functional Mobility: Functional Mobility [place] Level: Functional Mobility/Gait: contact guard assist Physical Assist: Functional Mobility/Gait: 1 person + 1 person to manage equipment Assistive Device: Functional Mobility/Gait: 4 wheeled walker Functional Mobility Distance: Distance needed for common household mobility Functional Mobility Deficits: Activity tolerance, Balance, Generalized weakness, Slowed gait speed Functional Mobility Skilled Rationale: Breathing strategies, Proper pacing, Upright gaze/neck extension, Verbal cues, Facilitate postural control Skilled Intervention/Details - Functional Mobility/Gait: Pt completes within room and on unit ambulation x100 feet with light hands on assist for balance Outcome Score(s): CURRENT -[facility] Daily Activity Inpatient Short Form Putting on/Taking Off Lower Body Clothin - A Lot of Assistance Bathin - A Lot of Assistance Toiletin - Total Assistance Putting on/Taking Off Upper Body Clothin - A Lot of Assistance Groomin - A Little Assistance Eatin - No Assistance CURRENT -[facility] Activity Raw Score: 14 CURRENT AM-[facility] Activity Functional Limitation/Modifier: 59.67% Currently Impaired in Daily Activity - CK Interventions: Intervention 1 Intervention Name: OOB Activity Details: Pt educated in benefits of continued functional mobility and ADL participation while in hospital to prevent deconditioning and functional decline. Pt encouraged to complete all ADLs daily, eat every meal out of bed, and get up to chair 3x/day to promote maintenance of strength, endurance, and activity tolerance while in acute environment. Intervention 2 Intervention Name: Sternal Precautions Details: Pt educated on standard sternal precautions including no pushing, pulling, or lifting more than 10 lbs and not reaching overhead or behind back for both arms, for 6 weeks. Pt also educated on precautions throughout functional mobility and self-care tasks this date to improve learning/carryover for task. Pt demonstrates and verbalizes fair understanding. Assessment & Plan: Patient is s/p CABG x3 and seen for therapy evaluation related to recent procedure with new sternal precautions as well as generalized weakness and deconditioning, impacting performance in ADLs and functional mobility. Exam findings include impairments in: balance, endurance, strength, transfers. These impairments contribute to occupational performance limitations including dressing, bathing, grooming, toileting, functional mobility, ADL transfers, body mechanics. The following factors impact the plan of care: past medical history of HTN, HLD, DM, PFO s/p closure in July of 2023, cardio embolic stroke June 2023, CAD and ischemic cardiomyopathy Patient will benefit from skilled occupational therapy to address these impairments, occupational performance limitations, and participation restrictions. Patient's rehab potential is: good. Planned Therapy Interventions (OT Eval): ADL retraining, balance training, bed mobility training, functional activity tolerance, strengthening, transfer training Patient Instruction/Education this session: Learners: Patient Education provided: Role of this discipline Teaching method: Verbal Education/Instruction Learner response: States/Identifies/Teaches back Learning preferences: Auditory Learning considerations: No barriers/ready to learn Plan for next session: toileting, LB Dressing, progress ambulation Acute OT Goals Plan of Care by Dayan Lang OT at 04/27/2024 11:47 AM Version 1 of 1 Problem: OT - ADLs Goal: Lower Body Dressing - Patient will complete lower body dressing tasks with independence using adaptive equipment/compensatory strategies as needed for improved ability to complete self-care activities. Outcome: Ongoing Goal: Grooming - Patient will complete grooming in standing with independence for improved ability to safely complete ADLs. Outcome: Ongoing Goal: Toileting - Patient will complete toileting task with independence and adaptive equipment as needed for improved ability to safely complete self-care activities. Outcome: Ongoing Goal: Bathing - Patient will perform full body bathing routine with modified independence while seated for improved ability to complete self-care activities Outcome: Ongoing Problem: OT - Transfers Goal: Transfers Toilet/ Bedside Commode - Patient will transfer to/from toilet/bedside commode with independence for improved ability to safely complete ADLs. Outcome: Ongoing Problem: OT - Endurance Goal: Endurance Functional Mobility - Patient will complete distance needed for limited community mobility with no rest breaks for improved tolerance to safely complete I/ADL's Outcome: Ongoing Problem: OT - Other Goal: Precaution Adherence - Patient will demonstrate 100% adherence to precautions during all ADLs and functional transfers to promote safety during daily routine. Outcome: Ongoing OT treatment consisted of the following to work and progress towards the above goal(s): OT Evaluation and Treatment Time OT Evaluation (Moderate) Time Entry: 22 Evaluating Therapist: Dayan Lang OT Additional Details: OT Co-Eval/Treatment Information Co-evaluation/co-treatment performed?: Yes, simultaneous billable skilled care was necessary due to medical complexity and functional deficits Other discipline: PT Rationale for need to co-eval/treat: postural control, coordination issues (medical complexity) OT Evaluation Complexity Occupational Profile and Client History: Moderate - expanded history Assessment of Occupational Performance: Moderate (3-5 performance deficits) Clinical Decision/Performance Deficits: Moderate (detailed assessments w/several treatment options) Time In: 1020 Time Out: 1042 Total Visit Time: 22 minutes Total Treatment Time (skilled, billable minutes): 22 minutes Assisted by during session: PT PPE used during patient interaction: gloves Patient location at end of session: bed with head of bed elevated Alarms on at end of session: none, RN aware Needs in reach. Upon discontinuation of Acute Care Occupational Therapy Services or patient discharge from the hospital this note represents the current Occupational Therapy Discharge Summary. Inpatient Cardiopulmonary Rehab Consultation AND Activity Session Completed. RN approved, as tolerated, and patient agreeable to visit. Patient reports feeling fine without complaints. Patient demonstrated IS x 2 up to 1250 mL with proper technique. Activity Session Vitals: 04/27/24 0942 04/27/24 1000 04/27/24 1001 Vital Signs Pulse (Heart Rate) 83 (rest) 83 81 (post-amb) Heart Rate Source Monitor Monitor;Apical Monitor BP 153/76 -- 149/70 MAP (mmHg) 101 mmHg -- 95 mmHg BP Location Left arm -- Left arm BP Position Sitting -- Sitting O2 Sat (%) 93 % 92 % 92 % O2 Device nasal cannula -- nasal cannula Flow (L/min) 2 -- 2 Activity/Level of Assistance Amb in damico/min Ax2, 4-WW, chair follow Ambulation Distance (feet) 75 Symptoms Noted During/After Activity Pain, SOB Positioning Seated in chair, call light within reach 3 Chest tube(s), IV lines/ A-line, Central line, pacer wires, prevena, catheter, oxygen, telemetry all intact upon leaving the room Activity session details: Patient tolerated activity well. He was able to stand from the chair with min A. He ambulated 75 ft, before requesting to sit and terminate activity. Patient reported to experiencing incisional pain rated 3/10 and SOB rated 5/10. No other symptoms reported. RN notified/aware. Encouraged continued ambulation and discussed appropriate activity progression. Patient participation in outpatient cardiac rehab was discussed. Patient is interested in participating in rehab at their local facility: [facility]. Discharge education provided to the patient. Printed materials Provided: Open Heart Surgery Care Guide, Sternal Precautions Handout. Patient s questions/concerns were addressed and topics below were discussed. 1. Activity Restrictions s/p sternotomy (standard) for 6 weeks 2. Rest Time 3. Activity Guidelines/Recommendations 4. Nutrition 5. Medications 6. Coughing and Deep Breathing 7. Incision Care 8. Post Surgery Blues 9. When to Call the Doctor We will continue to follow up with patient as needed until discharge for education review and activity progression. Chel Kaur MS ([phone]) Inpatient Cardiopulmonary & Vascular Rehab Janine Vaz MS ([phone]) IP Cardiopulmonary & Vascular Rehab Images from the original note were not included. Discharge Planning Patient Assessment Admission Assessment Patient Assessment Completed: Initial Expected Discharge Disposition: Home with Home Health Reason for Admission: cab Is the patient able to participate in the assessment?: Yes Information source: Patient Demographics Verified and Updated: Yes Has the patient been admitted to any hospital in the last 30 days?: No Advanced Care Planning Has the patient completed Advance Directives?: Not Completed Referral to Social Work for Advance Care Planning? : Patient Declines Legal Next of Kin Does the patient have a Guardian?: No Spouse: Yes Name and Contact information: Dalila Kruger Adult Child(willi), List All Adult Children: No Parent(s) - List All Living Parents: No Adult Sibling(s), List All Adult Siblings: Yes Name and Contact information: Sean Kruger Referral to Social Work to Identify Legal Next of Kin?: No Reviewed and Updated in Demographics? : Yes Outpatient Providers Does patient have a primary care physician? : Yes When was the patient's last PCP visit?: > 30 days Does the patient follow any specialists?: Yes Reviewed and updated Care Team?: Yes Patient Care Team: Krista Schmidt MD as PCP - General (Family Medicine) Jacky Meyer MD, PhD (Cardiac Surgery) Jamal Turcios MD as Valve Mechanic (Interventional Cardiology) Environment/Caregivers Is the patient from a facility or long-term?: No Patient lives with: Spouse or Partner Living Environment: House How many steps does the patient have to navigate to enter or inside the home? : 4 Does the patient have a first floor set-up with bed and bathroom?: No Patient Caregiving Responsibilities: Self Patient-identified caregiver/support network: Family Who does the patient identify as a teachable caregiver(s)?: Spouse or Partner Services Does the patient use a home health or hospice agency?: No Current with dialysis?: No Does the patient use any community programs or services?: No Does patient use DME? : lift chair, cpap, rollator DME provider name and contact: pt owns cpap Does the patient use oxygen?: No Does patient use medical supplies? : none Anticipated Changes Related to Illness/Injury? : No Initial ADLs Prior to Arrival What is the patient's baseline physical functioning prior to this acute illness?: independent What is the patient's baseline cognitive functioning prior to this acute illness?: independent Is the patient's baseline functioning changed by this acute illness? : No Concerns with patient being able to care for themselves at home? : No Are there therapy or specialists consults?: Yes Select consult type: PT Does the patient's home require any home modifications for discharge? : No CM to recommend therapy or other consults? : No Medication Management Does the patient have prescription insurance coverage? : Yes Is the patient on Anticoagulation? 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 : No Employed?: Yes Coping/Stress Concerns about patient s coping and stress?: No Concerns about patient s caregiver s coping and stress?: No Values and Beliefs Cultural or hoahaoism practices that may impact discharge planning and/or medical care?: Yes Explanation of practices or beliefs: jehovah's witness Initial Discharge Planning Expected Discharge Disposition: Home with Home Health Transportation Available for Discharge: Private Vehicle Patient Assessment Completed: Initial Expected Discharge Date: 05/01/2024 Discharge Planning Summary Pt admits for cab. 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 Pt is agreeable to home health, he owns a walker, and his can assist at home at dc. CHIVO is pt's Dalila. Pt does not have a HCPOA. Care Management Plan Role of clinical piano case maker explained. PCP/Specialist/pharmacy information updated, patient demographic/address/emergency contact information verified concession manager will continue to follow with medical team to coordinate discharge planning. DC disposition to be determined by clinical course. Myriam Aparicio RCP, [facility] Clinical Diabetes Nurse [phone] CVICU DAILY PROGRESS NOTE. HISTORY OF PRESENT ILLNESS: Mr. Kruger is a 53 y.o. male who has a pertinent past medical history including HTN, HLD, DM, PFO s/p closure in July of 2023, cardio embolic stroke June 2023, CAD and ischemic cardiomyopathy. He presented with symptoms of chest pain, anxiety, and dry cough, and was found to have severe multi-vessel CAD. He is now s/p CABG with Jacky Meyer on 04/26/24. DATE OF SURGERY: 04/26/24 PROCEDURE: CABG x 3 (NICE-LAD, [id number]) , LAAL SURGEON: Dr. Jacky Meyer POD: 0 Code Status:Full Code 24-hour interval history: - Pain control issues overnight; oxy 10. - CXR with atelectasis - Passed swallow, tolerating PO meds - UOP good, CT output ok Hospital Course: 04/26/24: Arrival to CVICU after CABG, extubated Plan for 04/27/2024: - Increase oxycodone to 10-15 mg q3 PRN - Start metoprolol 25 BID - Start atorvastatin 40 daily - Chest tubes to water seal - Start melatonin for sleep - Consult endo for insulin recs; start glargine 20u daily & wean gtt - Remove CVC - Remove art line & hylton this evening - Diurese with lasix, monitor UOP - Prn hydralazine to keep SBP <140 - Aggressive pulm hygiene for atelectasis - PT Discharge Planning/DENISE/Discharge Readiness: Anticipated, TBD pending clinical progression. Follow up: TBD Imaging follow up plan: TBD Ambulatory referral to cardiac rehab order placed:No Dr. Jacky Meyer recommends home health services upon discharge including PT, OT, and residential as indicated SURGICAL PLAN Pre-op CLARITZA: PRE-INTERVENTION SUMMARY Pt presents for CABG: LV - low normal systolic function, EF approximately 50%. No RWMAs seen. Normal diastolic function RV - Mildly dilated, normal systolic function Interatrial septum - ASD occlusion device seen, well seated; trace flow seen around device MV - normal annulus, mild MR, no MS AV - trileaflet, trace AI, no TV - normal annulus, no TR Aorta - no significant calcification or atheroma Post-op CLARITZA: POST-INTERVENTION SUMMARY S/P CABG: LV - improved systolic function, no RWMAs RV - unchanged MV - slightly worsened MR AV and TV are unchanged No significant effusion seen. Chest Tube Mgmt: Left pleural Mediastinal Y'd Plan for today: To suction Pacing Wires: Ventricular Plan: Pull POD2 Sutures/[place] Plan: None PA/LAT Chest X-ray: To be ordered once all chest tubes are removed OT shower complete? No consult OT once all tubes and wires are out. SYSTEM BASED PLAN . Neurological: Acute Post-Operative Pain -- DVPRS: Rest: 2- mild pain (04/27 1042) DVPRS: Activity: 2- mild pain (04/27 1042) DVPRS: Rest: 2- mild pain (04/27 1042) DVPRS: Activity: 2- mild pain (04/27 1042) Scheduled tylenol, gabapentin. PRN oxycodone 10-15 mg q3 prn, dilaudid 0.5 mg q4 prn Agitation/Delirium- Overall CAM-ICU: Negative Arrived on propoful drip, now off sedation & extubated Delirium precautions Day/night sleep cycle, sleep hygiene Insomnia, chronic: Melatonin Cardiovascular: Multi-vessel CAD & ischemic cardiomyopathy s/p CABG x 3 (NICE-LAD, [id number]) , LAAL 04/26/24 - Wean pressors as tolerated, CABG pathway - CT's to water seal today - Metoprolol, atorvastatin start 04/27 - Nitroglycerin per CT surgery, to end Hypovolemic Vasoplegic Vasopressor(s): none Shock - Resolved PFO s/p closure 07/2023 Cardio embolic hemorrhagic stroke 06/2023 - Residual L hand/leg numbness, incoordination - Not on anticoagulation Hypertension- SBP goal <140 Home medications: (held in immediate post op period) - Amlodipine 10mg daily - Hydralazine 10 mg TID PRN - Metoprolol 25 mg - resumed 04/27 - Ramipril 5 mg daily Hyperlipidemia- hold home Pravastatin; started atorvastatin 40 mg on 04/27 Prophylactic Antiarrythmic: Yes - Amiodarone Pulmonary: Extubated, on 2L - Wean O2, pulm hygiene/IS Renal: At Risk for RAMANDEEP d/t cardiac surgery Baseline Creatinine: 0.60 Baseline GFR: Estimated Creatinine Clearance: 92 mL/min (by C-G formula based on SCr of 0.98 mg/dL). Urine output: acceptable Monitor chemistries Avoid nephrotoxic agents. Diursis with lasix 04/27 (20 IV am, 80 PO afternoon) Electrolyte abnormalities: Hyponatremia- monitor Risk for other electrolyte abnormalities: daily labs, replete per protocol Gastrointestinal: Acute Post Operative Constipation - . Bowel regimen in place with scheduled miralax and senna, increased PRN dulcolax suppository. Current Diet Orders Procedures DIET HEART HEALTHY - 4 GM SODIUM Carb Controlled Standing Status: Standing Number of Occurrences: 1 Order Specific Question: Additional Modifier: Answer: Carb Controlled Morbid Obesity - Pt. has class II obesity (BMI 35-39.9). Follow with PCP for dietary and lifestyle modifications : Body mass index is 36.84 kg/m . Integumentary/Musculoskeletal Active Incisions Wounds - Wound Sheath Site 03/29/24 1309 Right Radial (29) Wound Incision 04/26/24 0824 Left;Lower Leg (1) Wound Incision 04/26/24 0824 Midline Chest (1) Endocrinology DM2, Post-Operative Stress Induced Hyperglycemia - Postoperative Insulin gtt, transition to SSI when appropriate HgbA1c= 04/05/2024: Hemoglobin A1C HPLC 7.5 - Endo consulted for insulin mgmt/recs - Started glargine 20u daily on 04/27 Home diabetes meds: (hold while inpatient) - Metformin 500 BID - Glimepiride 2 mg daily - Dulaglutide (Trulicity) 1.5 mg injection once weekly Hematology Post-operative Acute Blood Loss Anemia- improving CTM daily H/H, no indication for transfusion at this time Monitor chest tube output No acute bleeding concerns at this time Anticoagulation Status/Plan - Not needed per surgical team Infectious Disease Post-Op Antimicrobial Therapy - Cefazolin 24 hrs Complexity Hyponatremia - Secondary to fluid shifts. Monitor. Obesity Body mass index is 36.84 kg/m . - Follow with PCP for dietary and lifestyle modifications. ICU Liberation Checklist: ABCDEF Bundle Reviewed: [x] Yes [] No Breathing: SBT: yes [] Passed [] Failed [] Does not meet criteria [x] N/A SAT: [] Yes [] No [x] N/A Vascular Access/Line/Tubes/Drains: Lines to be removed: CVC, [place], hylton See LDA's below Assessed insertion site: [x] Yes [] No Choice of Analgesia/Sedation: Pain: [] Controlled [x] Uncontrolled Continuous Infusions: [] Sedation [] Analgesia [] NMB [x] None Delirium: Overall CAM-ICU: Negative CAM: [] Positive [] Negative [x] Unable to assess Restraints: [] None [x] Soft limb [] [place] mitts [] Other Primary person of contact Dalilaher Kruger, spouse Patient Lines/Drains/Airways Status Active Lines, Drains, Airways, & Wound Overview Name Placement date Placement time Site Days Percutaneous Central Line - Single Lumen 04/26/24 0847 internal jugular vein, right 04/26/24 0847 -- 1 Peripheral IV Line - Single Lumen 04/26/24 1244 metacarpal vein (top of hand), right 18 gauge 04/26/24 1244 -- 1 Peripheral IV Line - Single Lumen 04/26/24 2307 forearm, posterior, right 20 gauge 04/26/24 2307 -- less than 1 Chest Tube Site(1) 04/26/24 Right mediastinum 04/26/24 -- -- 1 Chest Tube Site(2) 04/26/24 Left mediastinum 04/26/24 -- -- 1 Chest Tube Site(3) 04/26/24 Left pleural 04/26/24 -- -- 1 Indwelling Urethral Catheter 04/26/24 0745 100% silicone 16 10 10 04/26/24 0745 -- 1 Arterial Line 04/26/24 0846 brachial artery, left 04/26/24 0846 -- 1 Wound Sheath Site 03/29/24 1309 Right Radial 03/29/24 1309 Radial 28 Wound Incision 04/26/24 0824 Left;Lower Leg 04/26/24 0824 Leg 1 Wound Incision 04/26/24 0824 Midline Chest 04/26/24 0824 Chest 1 Pacer Wires 04/26/24 1109 Ventricular 04/26/24 1109 -- 1 Prophylaxis Bundle: HOB: 30 degrees Stress ulcer ppx: [] Yes [] Therapeutic [] Home regimen [x] No, not indicated Chemical DVT ppx: [x] Yes [] No, SCDs ordered Therapy Services: SONOGRAPHY TECHNOLOGIST: [] Swallow [] Cognitive Eval [] Speaking Valve [x] N/A Early Mobility: PT/OT consulted: [x]Yes [] No, d/t clinical status [] No, pt is independent Current Mobility Status: Pending clinical improvement/extubation OBJECTIVE VITALS: Blood pressure 149/70, pulse 75, temperature 98.6 F (37 C), temperature source Bladder, resp. rate 18, height 1.626 m (5' 4), weight 97.3 kg (214 lb 9.6 oz), SpO2 93%. PHYSICAL EXAM: General: Well appearing, NAD, sitting up in chair HEENT: NCAT. No scleral icterus. MMM. CV: RRR. No murmur. No LE edema. Resp: No increased WOB, on RA. Lungs CTAB, no wheezing or crackles. GI: Soft, non-distended. Non-tender, no rebound or guarding. Ext: Warm and well-perfused. No cyanosis. Skin: Dry and inact. No rashes or ecchymoses on exposed skin. No jaundice. Neuro: A&Ox4. Awake, alert, appropriate. CN's grossly intact; no facial droop, no speech difficulty. SURGICAL INCISIONS Active Wounds: Active Wounds: Salvatore Rdz MD Cardiovascular ICU, Anesthesiology PGY3 04/27/24 12:48 PM Associated attestation - Denzel Poe MD - 04/27/2024 8:54 PM EST Attending Attestation: Mr. Antonia Kruger is a 53 y.o. 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 He was found to have severe CAD after PFO closure. On 04/26/24 he was admitted to the SICU s/p CABG x3 (NICE to LAD, SVG to Diag and Ramus). Intraop CLARITZA with mild LV and mild RV dysfunction. Today we addressed the following issues: Circulatory shock - with hypotension and lactic acidosis has resolved - good uop and normalized lactate Atelectasis - bronchopulmonary hygiene, IS, OOB Acute postop pain - Multimodal analgesia with acetaminophen, gabapentin and oxycodone - increased oxycodone CAD - ASA and statin - NTG for graft patency for 24 hours - betablocker - metoprolol today Afib Prophylaxis - amiodarone DM and stress hyperglycemia - insulin infusion - transition to SSI and lantus Documentation of LDA necessity Line necessity: remove today [place] necessity: UOP per shift - remove today Airway necessity: NA I spent 32 minutes providing critical care services and making complex medical decisions for this critically ill patient on behalf of Jacky Meyer MD, PhD This time includes examining the patients, reviewing patient data, discussions with other providers and speaking to family members. This time does not include performing any procedures. I have discussed this patient with the Resident and agree with their assessment, plan and decision making or have made amendments where appropriate. Complexity. Hyponatremia - Secondary to fluid shifts. Monitor. Obesity Body mass index is 36.84 kg/m . - Follow with PCP for dietary and lifestyle modifications. Any conditions listed below are present on admission unless otherwise specified. .Thromboembolic CVA - ASA Denzel Poe MD 04/27/2024 8:48 PM 04/26/24 1443 Respiratory Interventions RT Intervention Other (see comments) Assessment Completed ICU Vital Signs O2 Device (S) nasal cannula with humidification Respiratory Status Update: Antonia Kruger has been liberated from mechanical ventilation. Recent Vitals and Breath Sounds: Blood pressure (!) 179/96, pulse 69, temperature 97.7 F (36.5 C), resp. rate 22, height 1.626 m (5' 4), weight 97.3 kg (214 lb 9.6 oz), SpO2 98%. Post-Extubation Orders and Indications: Cough and deep breathing exercises Respiratory Plan of Care: Pt extubated per order, pt seemed to tolerate procedure well, placed on 4LNC post. Will continue to monitor The patients respiratory plan of care was updated by Juliann Jaramillo RCP 04/26/2024 2:48 PM CVICU DAILY PROGRESS NOTE. HISTORY OF PRESENT ILLNESS: Mr. Kruger is a 53 y.o. male who has a pertinent past medical history including HTN, HLD, DM, PFO s/p closure in July of 2023, cardio embolic stroke June 2023, CAD and ischemic cardiomyopathy. He presented with symptoms of chest pain, anxiety, and dry cough, and was found to have severe multi-vessel CAD. He is now s/p CABG with Jacky Meyer on 04/26/24. DATE OF SURGERY: 04/26/24 PROCEDURE: CABG x 3 (NICE-LAD, [id number]) , LAAYAZ SURGEON: Dr. Jacky Meyer POD: 0 Code Status:Full Code 24-hour interval history: CABG, arrival to ICU Hospital Course: 04/26/24: Arrival to CVICU after CABG Plan for 04/26/2024: - Stat postop labs - CXR ordered - Wean off sedation. SBT when awake - Monitor chest tube output - Continue current pain regimen - Wean down on pressors, SBP goal 100-140mmHg - ASA POD0 (no plavix per CT surg) - Nitroglycerin 10 mcg/min for graft protection - Continue resuscitation as needed with crystalloid and blood products, pending HH - PPX Abx Discharge Planning/DENISE/Discharge Readiness: Anticipated, TBD pending clinical progression. Follow up: TBD Imaging follow up plan: TBD Ambulatory referral to cardiac rehab order placed:No Dr. Jacky Meyer recommends home health services upon discharge including PT, OT, and residential as indicated SURGICAL PLAN Pre-op CLARITZA: Pending Post-op CLARITZA: Pending Chest Tube Mgmt: Left pleural Mediastinal Y'd Plan for today: To suction Pacing Wires: Ventricular Plan: Pull POD2 Sutures/[place] Plan: None PA/LAT Chest X-ray: To be ordered once all chest tubes are removed OT shower complete? No consult OT once all tubes and wires are out. SYSTEM BASED PLAN . Neurological: Acute Post-Operative Pain -- Scheduled tylenol, gabapentin. PRN oxycodone 5 mg q3 prn, dilaudid 0.5 mg q4 prn Agitation/Delirium- Arrives on propoful drip Delirium precautions Day/night sleep cycle, sleep hygiene Wean propofol aggressively for goal of extubation Insomnia, chronic: Melatonin PRN Cardiovascular: Multi-vessel CAD & ischemic cardiomyopathy s/p CABG x 3 (NICE-LAD, [id number]) , LAAL 04/26/24 - Wean pressors as tolerated, CABG pathway Hypovolemic Vasoplegic Vasopressor(s): Norepi, epi Shock - MAP goal >65 PFO s/p closure 07/2023 Cardio embolic hemorrhagic stroke 06/2023 - Residual L hand/leg numbness, incoordination - Not on anticoagulation Hypertension- SBP goal <140 Home medications: (held in immediate post op period) - Amlodipine 10mg daily - Hydralazine 10 mg TID PRN - Metoprolol 25 mg daily - Ramipril 5 mg daily Hyperlipidemia- hold home Pravastatin. Prophylactic Antiarrythmic: Yes - Amiodarone Pulmonary: Mechanical ventilation post op - Wean towards extubation - SBT when apporpriate Renal: At Risk for RAMANDEEP d/t cardiac surgery Baseline Creatinine: 0.60 Baseline GFR: Estimated Creatinine Clearance: 150 mL/min (A) (by C-G formula based on SCr of 0.6 mg/dL (L)). Urine output: acceptable Monitor chemistries Avoid nephrotoxic agents. Electrolyte abnormalities: Hyponatremia- monitor Risk for other electrolyte abnormalities: daily labs, replete per protocol Gastrointestinal: Acute Post Operative Constipation - . Bowel regimen in place with scheduled miralax and senna. PRN dulcolax suppository. Current Diet Orders Procedures DIET NPO with meds Standing Status: Standing Number of Occurrences: 1 Order Specific Question: NPO Meds: Answer: with meds DIET HEART HEALTHY - 4 GM SODIUM Carb Controlled Standing Status: Standing Number of Occurrences: 1 Order Specific Question: Additional Modifier: Answer: Carb Controlled Morbid Obesity - Pt. has class II obesity (BMI 35-39.9). Follow with PCP for dietary and lifestyle modifications : Body mass index is 36.84 kg/m . Integumentary/Musculoskeletal Active Incisions Wounds - Wound Sheath Site 03/29/24 1309 Right Radial (28) Wound Incision 04/26/24 0824 Left;Lower Leg (0) Wound Incision 04/26/24 0824 Midline Chest (0) Endocrinology DM2, Post-Operative Stress Induced Hyperglycemia - Postoperative Insulin gtt, transition to SSI when appropriate HgbA1c= 04/05/2024: Hemoglobin A1C HPLC 7.5 Home diabetes meds: (hold while inpatient) - Metformin 500 BID - Glimepiride 2 mg daily - Dulaglutide (Trulicity) 1.5 mg injection once weekly Hematology Post-operative Acute Blood Loss Anemia CTM daily H/H, no indication for transfusion at this time Monitor chest tube output No acute bleeding concerns at this time Anticoagulation Status/Plan - Not needed per surgical team Infectious Disease Post-Op Antimicrobial Therapy - Cefazolin 24 hrs Complexity Acute Lactic Acidosis - Monitor. Management of underlying condition as detailed above. Hyponatremia - Secondary to fluid shifts. Monitor. Obesity Body mass index is 36.84 kg/m . - Follow with PCP for dietary and lifestyle modifications. ICU Liberation Checklist: ABCDEF Bundle Reviewed: [x] Yes [] No Breathing: SBT: yes [] Passed [] Failed [] Does not meet criteria [] N/A SAT: [x] Yes [] No [] N/A Vascular Access/Line/Tubes/Drains: Lines to be removed: None yet See LDA's below Assessed insertion site: [x] Yes [] No Choice of Analgesia/Sedation: Pain: [x] Controlled [] Uncontrolled Continuous Infusions: [x] Sedation [] Analgesia [] NMB [] None Delirium: CAM: [] Positive [] Negative [x] Unable to assess Restraints: [] None [x] Soft limb [] [place] mitts [] Other Primary person of contact Dalila Whitney, spouse Patient Lines/Drains/Airways Status Active Lines, Drains, Airways, & Wound Overview Name Placement date Placement time Site Days Percutaneous Central Line - Single Lumen 04/26/24 0847 internal jugular vein, right 04/26/24 0847 -- less than 1 Chest Tube Site(1) 04/26/24 Right mediastinum 04/26/24 -- -- less than 1 Chest Tube Site(2) 04/26/24 Left mediastinum 04/26/24 -- -- less than 1 Chest Tube Site(3) 04/26/24 Left pleural 04/26/24 -- -- less than 1 Indwelling Urethral Catheter 04/26/24 0745 100% silicone 16 10 10 04/26/24 0745 -- less than 1 Airway 04/26/24 0742 Matt flex-tip;ETT 04/26/24 0742 -- less than 1 Arterial Line 04/26/24 0846 brachial artery, left 04/26/24 0846 -- less than 1 Wound Sheath Site 03/29/24 1309 Right Radial 03/29/24 1309 Radial 28 Wound Incision 04/26/24 0824 Left;Lower Leg 04/26/24 0824 Leg less than 1 Wound Incision 04/26/24 0824 Midline Chest 04/26/24 0824 Chest less than 1 Pacer Wires 04/26/24 1109 Ventricular 04/26/24 1109 -- less than 1 Prophylaxis Bundle: HOB: 30 degrees Stress ulcer ppx: [x] Yes [] Therapeutic [] Home regimen [] No, not indicated Chemical DVT ppx: [x] Yes [] No, SCDs ordered Therapy Services: SONOGRAPHY TECHNOLOGIST: [] Swallow [] Cognitive Eval [] Speaking Valve [x] N/A Early Mobility: PT/OT consulted: [x]Yes [] No, d/t clinical status [] No, pt is independent Current Mobility Status: Pending clinical improvement/extubation OBJECTIVE VITALS: Blood pressure (!) 179/96, pulse 66, temperature 97.3 F (36.3 C), resp. rate 16, height 1.626 m (5' 4), weight 97.3 kg (214 lb 9.6 oz), SpO2 98%. PHYSICAL EXAM: General: Lying in bed, sedated, intubated HEENT: NCAT. No scleral icterus. MMM. PERRL. CV: RRR, no edema, no cyanosis Resp: Ventilated, lungs with breath sounds bilaterally GI: Soft, non-distended. Ext: Warm and well-perfused. No cyanosis. Skin: Dry and inact. No rashes or ecchymoses on exposed skin. No jaundice. Sternal wound with wound vac. Chest sites dressed, c/d/i Neuro: Sedated. Moves all 4 extremities. Does not open eyes or follow commands. SURGICAL INCISIONS Active Wounds: Salvatore Rdz MD Cardiovascular ICU 04/26/24 1:27 PM Associated attestation - Denzel Poe MD - 04/26/2024 8:27 PM EST Attending Attestation: Mr. Antonia Kruger is a 53 y.o. 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 He was found to have severe CAD after PFO closure. On 04/26/24 he was admitted to the SICU s/p CABG x3 (NICE to LAD, SVG to Diag and Ramus). Intraop CLARITZA with mild LV and mild RV dysfunction. Today we addressed the following issues: Circulatory shock - with hypotension and lactic acidosis - judicious fluid resuscitation - wean Ne andEpi for MAP > 65 - following lactate and UOP Mechanical Ventilation - after cardiac surgery - Atelectasis - wean to PSV and extubation when meets criteria - bronchopulmonary hygiene after extubation Acute postop pain - Multimodal analgesia with acetaminophen, gabapentin and oxycodone Anxiety - wean off propofol CAD - ASA to start today - NTG for graft patency - plan for statin tomorrow - betablocker when hemodynamically appropriate - May start clopidogrel per Cardiac surgery Afib Prophylaxis - amiodarone Mild coagulopathy and hypofibrinogenemia - no significant bleeding DM and stress hyperglycemia - insulin infusion Documentation of LDA necessity Line necessity: pressors and immediate postop [place] necessity: hourly UOP Airway necessity: immediate postop I spent 45 minutes providing critical care services and making complex medical decisions for this critically ill patient on behalf of Jacky Meyer MD, PhD This time includes examining the patients, reviewing patient data, discussions with other providers and speaking to family members. This time does not include performing any procedures. I have discussed this patient with the Resident and agree with their assessment, plan and decision making or have made amendments where appropriate. Complexity. Hyponatremia - Secondary to fluid shifts. Monitor. Obesity Body mass index is 36.84 kg/m . - Follow with PCP for dietary and lifestyle modifications. Any conditions listed below are present on admission unless otherwise specified. .Thromboembolic CVA - ASA Denzel Poe MD 04/26/2024 8:17 PM documented in this encounter [facility] 05-02-2024 Consult note Formatting of th is note is different from the original. Images from the original note were not included. DIABETES EDUCATION CONSULT Antonia Kruger is a 53 y.o. male admitted 04/26/2024. Consult received for diabetes education. Met with pt to review DM learning needs, barriers, and self management plan. Pt was resting in bed quietly, awake, alert and oriented x 3, zero s/sx of acute distress noted at the time of this encounter. Pt's was present at his bedside for support and actively participated in this DM self-management education. Bedside nursing staff to reinforce Diabetes Education: [x]Practicing checking glucoses Testing your blood sugar video [x]Practicing and teachback of insulin injection How to use insulin pen video [x]Carb control/portion control reinforcement Carbohydrates and Blood Sugar video Diabetes Education Resources: Link to diabetes education book in Indian: DiabetesEducation.pdf Link to diabetes education book in Senegalese: DiabetesEducation_SP.pdf Diabetes videos: [email or web address] Link to order the diabetes education books (you would login and select your location, select the disease, diabetes and then you will see the option to order the book): [email or web address] ng DM History: Type of Diabetes: Type 2 Diabetes Mellitus (T2DM) Date of diagnosis: 3019. Outpatient physician: Pcp. Last Seen: 03/2024 Diabetes Complications: cardiovascular disease Home blood glucoses: Checking blood sugars about 4-5 times per day. Type of glucometer/strips: Dexcom G7 Usual results are 180s Home diabetes medications: see med rec Intervention: (Diabetes Education): [x]Diabetes Education booklet provided to patient [x]Pathophysiology of Type 1 or 2 Diabetes [x]Target glucose range and target A1c [x]Self monitoring of glucose [x]Self administration of insulin [x]Nutrition modification/ plate method [x]Benefits of exercise [x]How to assess and treat hypoglycemia [x]How to assess and treat hyperglycemia [x]Sick day rules [x]Who to contact in an emergency [x]DKA prevention and symptoms Goals: Pt's goals for better outcomes: zero goal set at the time of this encounter I recommend practice carb/portion controlled diet Diabetes Supplies: Denied difficulties obtaining medication and supplies. - Glucose monitoring supplies for ACHS: Glucose test strips: dispense 150 with 1 refill - Patient has CGM brand, Lancets: dispense 150 with 1 refill, and alcohol swabs: dispense 200 with 1 refill - The patient will need script for new glucometer: yes: Patient prefers Dexcom G7 brand or substitute brand covered by insurance Insulin: New to insulin [x]YES []NO New to meal time insulin [x]YES []NO Insulin teaching done including site rotation, how to administer insulin [x]YES []NO Return demonstration [x]YES []NO Follow Up: [x]Per inpatient diabetes team note []Follow up with outpatient Diabetes Education Classes []Follow up with PCP Evaluation: Pt seen at his bedside today; we were able to complete DM education: Self monitoring blood sugar (SMBG) discussed and pt provided teach back . We discussed before meals and bedtime, we also reviewed how to use BG levels to dose insulin before meals at home. How to self administer insulin, return demonstration provided by pt accurately. The plan is to reinforce this education consistent with each dose of insulin required to increase patient's confidence to self inject. Continue to reinforce self-management. Pt and his demonstrated understanding of this DM self-management education. Thank you, Courtney Magdaleno APRN-[facility] Automotive Airconditioning Mechanic- Endocrinology, Diabetes & Metabolism Associated Order(s): IP CONSULT TO LIFESTYLE MEDICINE Lifestyle Medicine Consult History & Physical Patient: Antonia Kruger, 1970, [id number] Reason for Consult Assess lifestyle factors and treat areas that would impact cardiopulmonary health HISTORY OF PRESENT ILLNESS Antonia Kruger is a 53 y.o. male with DM, HTN, HLD, stroke who has been admitted for CAD s/p CABG -Parents at bedside. -Looking forward to being at home; likes to play video games and watch youOesiaube. Live at home with . 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 Tries to avoid soda. -goes on occ walk but no regular exercise. -Family//friends gives him sense of purpose Lifestyle Medicine Pillars (based on LM short form) Nutrition (over the last 2 weeks) How often have you eaten fast food, sugary drinks or packaged foods?: More than half the days How many servings of whole fruits and vegetables do you eat?: Less than 2 servings Sleep (over the last 2 weeks) How many hours of sleep did you average in a 24-hour period?: 4-5 hours How often did you feel tired or have difficulty staying awake during routine tasks in the day?: Several days Physical Activity On average, how many days per week do you engage in moderate to strenuous exercise (like a brisk walk)?: 0 days On average, how many minutes do you engage in exercise at this level?: 0 min Purpose & Connection (over the last 2 weeks) How often have you felt like your life had purpose or meeting?: Nearly ever day (0) How often have you connected with any support network?: Nearly every day (0) Over the past 2 weeks, how often have you been bothered by any of the following problems? Little interest or pleasure in doing things: Not at all Feeling down, depressed, or hopeless: Several days Patient Health Questionnaire-2 Score: 1 Feeling nervous, anxious or on edge: Several days Not being able to stop or control worrying: Not at all Weight Management What do you think about your current weight?: I want to lose a little weight MEDICAL HISTORY Past Medical History: Diagnosis Date CAD (coronary artery disease) Diabetes mellitus Essential hypertension, benign Hyperlipidemia Stroke Past Surgical History: Procedure Laterality Date CABG W/ ARTERY GRAFT OPEN Midline 04/26/2024 Laterality: Midline; Surgeon: Jacky Meyer MD, PhD; Location: [facility] OR EXCLUSION LEFT ATRIAL APPENDAGE OPEN Midline 04/26/2024 Laterality: Midline; Surgeon: Jacky Meyer MD, PhD; Location: [facility] CLOSURE REPAIR ATRIAL SEPTUM DEFECT W/O PATCH N/A 08/05/2023 Laterality: N/A; Surgeon: Jamal Turcios MD; Location: [facility] CATH HERNIA REPAIR N/A SOCIAL HISTORY Social History Tobacco Use Smoking status: Never Smokeless tobacco: Never Substance Use Topics Alcohol use: Never Social History Social History Narrative Not on file FAMILY HISTORY family history includes No known problems in his father and mother. MEDICATIONS Prior to Admission Medications Prescriptions Last Dose Informant Patient Reported? Taking? AMIOdarone 200 MG tablet 04/25/2024 No Yes Sig: Take 2 tablets by mouth 3 (three) times a day for 3 days. Allopurinol 100 MG tablet 04/24/2024 Yes No Sig: Take 1 tablet by mouth daily. Aspirin Low Dose [address] tablet 04/24/2024 No No Sig: Take 1 tablet by mouth daily. Dulaglutide (Trulicity) 1.5 MG/0.5ML Solution Pen-injector injection 04/11/2024 Yes No Sig: Inject under the skin. Takes on Thursday or Thursday's Melatonin 3 MG tablet 04/24/2024 Yes No Sig: TAKE 1 TABLET BY MOUTH NIGHTLY Metoprolol 25 MG tab regular release 04/25/2024 No Yes Sig: Take 0.5 tablets by mouth 2 times daily. Mupirocin 2 % ointment 04/25/2024 at 2330 No Yes Sig: Apply to inside of nares two times a day for five days prior to surgery Pravastatin 40 MG tablet 04/24/2024 Yes No Sig: Take 1 tablet by mouth every evening at 6 PM. Ramipril 5 MG capsule 04/22/2024 Yes No Sig: Take 1 capsule by mouth daily. amLODIPine (Norvasc) 10 MG tablet 04/23/2024 No No Sig: Take 1 tablet by mouth daily. gliMEPIride 2 MG tablet 04/24/2024 Yes No Sig: Take 1 tablet by mouth daily. hydrALAZINE 10 MG tablet 04/24/2024 Yes No Sig: Take 1 tablet by mouth 3 times daily as needed for Other (BP >140/90). metFORMIN 500 MG tablet 04/23/2024 Yes No Sig: Take 2 tablets by mouth 2 times daily. Facility-Administered Medications: None ALLERGIES No Known Allergies REVIEW OF SYSTEMS Constitutional (no fever, chills, weight changes) Eyes (no vision changes) ENT (no ringing, loss of hearing) Cardiovascular (see HPI) Respiratory (no cough, SOB) Gastrointestinal (no abd pain, constipation, diarrhea) Genitourinary (no dysuria, gross hematuria) Integumentary (no rash) Musculoskeletal (no joint deformity, joint pains) Psych (no depressed mood) PHYSICAL EXAM BP 136/63 (BP Location: Left arm, BP Position: Sitting) Pulse 82 Temp 97.6 F (36.4 C) (Oral) Resp 24 Ht 1.626 m (5' 4) Wt 97.3 kg (214 lb 6.4 oz) Comment: standing weight SpO2 96% BMI 36.80 kg/m Smoking Status Never Gen: Alert, Awake, NAD Eyes: no icterus ENT: trachea midline Resp: normal respiratory effort Cardio: RRR, brisk cap refill. No JASON. GI: S/NT/ND, NABS MS: No joint effusions or erythema Skin: No jaundice or rash Neuro: Strength grossly equal in muscle groups of the bilateral UEs and LEs. Psych: Alert, Ox3, appropriate affect and cognition Chest incision clean/dry DATA REVIEW WBC/Hgb/Hct/Plts: 14.47/8.1/25.4/412 (05/01 239) Na/K+/Phos/Mg/Ca: 137/3.6/--/1.9/-- (05/01 239) Bun/Creat/Cl/CO2/Glucose: 19/0.68/101/26/136 (05/01 0239-05/01 1608) Body mass index is 36.8 kg/m . Hemoglobin A1C HPLC Date Value Ref Range Status 04/05/2024 7.5 (H) 4.7 - 5.6 % Final Additional Labs and imaging I have personally reviewed vit B12 348; vit D pending. CXR without acute opacity. Impression with Recommendations Problem List Specific to Lifestyle Medicine Patient Active Problem List Diagnosis Type 2 Diabetes (A1C > 6.49%) Hemorrhagic stroke Stroke Electrolyte disorder (K, Cl, or Na) Obesity (BMI 30.0-34.9) S/P percutaneous patent foramen ovale closure CAD (coronary artery disease) Vit B12 deficiency Additional LM diagnoses Sedentary Lifestyle Inadequate Dietary Fiber Diet high in saturated fat, sugar and calories Inadequate Sleep Quality and Quantity Lifestyle Priorities and Recommendations - Whole food, plant-predominant diet, increasing plant diversity to greater than 20 plants per week (and more than 30 grams of fiber per day.) - Aim for gre instructor daylight, either outside or near a window. Dim lights after 7pm and reduce screen use. - Limit eating window to less than 12 hours and avoid eating/drinking anything besides water or herbal tea after 7pm - Replace vit B12; if Vit D less than 30, start cholecalciferol Recommended Referrals: -cardiac rehab Resources Used [facility] Pillars Booklet Daily Dozen Handout 30plants per week handout SMART goals In discharge instructions, provided information about full plate living and additional educational resources (websites, books, and documentaries) Continue other medical management per primary team. Agree with aggressive LDL reduction. Thank you for this consult. Please contact me via [employer] chat or pager with any questions. Time spent reviewing chart, completing history and exam, ordering tests and counseling patient and/or family: 60min; More than 50% of this time was directly spent counseling the patient and coordinating care. Associated Order(s): IP CONSULT TO ENDOCRINOLOGY - DIABETES [facility] Inpatient Diabetes Consult - Team 2 *For provider quality assurance monitor body, please use [employer]-> [place]-> Internal Medicine-> Endocrinology & Metabolism-> Team 2 Impression: Uncontrolled Type 2 Diabetes Mellitus (T2DM) admitted for CABG. We are consulted for post-op glucose control. A1c on 04/05/24: 7.5% He is Post-CABG, coming up on 24 hours of insulin drip for glycemic control. Plan to transition off of insulin drip, with 20u glargine long-acting and standard sliding scale. Diabetes Inpatient Plan: Basal: Insulin glargine: 20 units q24H Prandial: Insulin lispro: 1 unit per 10 gram carbs qachs & prn Correction: Insulin lispro: 1 unit(s) per every 50 mg/dL above 150 mg/dL qachs Diabetes Discharge Planning: Considerations for discharge regimen: Anticipate continue home regimen Follow up needed: Patient has a local Academic Affairs Assistant that is not at [facility], and will schedule their own appt in 2-4 weeks Thank you for allowing us to participate in your patients care. If you have questions please use [employer]->[facility]-> Internal Medicine-> Endocrinology & Metabolism-> Team 2 to identify quality assurance monitor body pager. We will follow glucose trends with you and make recommendations as indicated. CC: CABG Date of admission: 04/26/2024 Admission diagnosis: CAD (coronary artery disease), la posta coronary artery [I25.10] CAD (coronary artery disease) [I25.10] History of Present Illness: Antonia Kruger is a 53 y.o. year old male with Type 2 Diabetes Mellitus (T2DM) diagnosed in 2019 who is seen in consultation at the request of Jacky Meyer MD, PhD for assistance with evaluation of postoperative hyperglycemia and to make treatment recommendations. He is admitted for CABG for ischemic cardiomyopathy, performed 04/26/24. He was placed on an insulin drip for post-operative glycemic control. He was also given 20u glargine this morning. His home regimen is metformin and glimepiride plus trulicity. Has never needed insulin outpatient. On interview reports nausea but no vomiting. Endorses surgical site pain on chest and leg. Denies abdominal pain. When I spoke with him he was still NPO however he was switched to a heart healthy diet after noon (24 hours post-operative). Current insulin orders: Basal: glargine 20 units QAM Infusion: Regular insulin at T2DM rate Prandial: 1 unit per 10 gram carbs Correction: 1 unit per 50 mg/dl above 150 mg/dl Insulin dosing over the last 24 hours: Infusion: Regular insulin 3-5 units/hour, approximately 80 units over past 24 hours Regular: 10 = 10 units Current Diet Orders Procedures DIET NPO with meds Standing Status: Standing Number of Occurrences: 1 Order Specific Question: NPO Meds: Answer: with meds DIET HEART HEALTHY - 4 GM SODIUM Carb Controlled Standing Status: Standing Number of Occurrences: 1 Order Specific Question: Additional Modifier: Answer: Carb Controlled Glucose Review: Glucose Date Value Ref Range Status 04/27/2024 119 (H) 70 - 99 mg/dL Final Glucose (POC Device) Date Value Ref Range Status 04/27/2024 113 (H) 70 - 99 mg/dL Final 04/27/2024 125 (H) 70 - 99 mg/dL Final 04/27/2024 131 (H) 70 - 99 mg/dL Final Diabetes History Lab Results Component Value Date HGBA1C 7.5 (H) 04/05/2024 Diagnosis (aprox date): 2019 Family History: unknown, adopted Outpatient Clinic: Local family medicine doctor (Krista Schmidt MD) Home regimen: Noninsulin injectables: Trulicity Orals: glimepiride 2mg daily, metformin 1000mg BID BP: ramipril, metoprolol, amlodipine, and hydralazine Heart Failure: no SGLT2i therapy Lipids: pravastatin Vitamin D none Thyroid none Immunization History Administered Date(s) Administered COVID-19 monovalent vaccine, mRNA, Pfizer, 0.3 ML 05/23/2020, 06/13/2020 Social History Tobacco Use Smoking Status Never Smokeless Tobacco Never Social History Substance and Sexual Activity Alcohol Use Never Past Medical History: Diagnosis Date CAD (coronary artery disease) Diabetes mellitus Essential hypertension, benign Hyperlipidemia Stroke Past Surgical History: Procedure Laterality Date CLOSURE REPAIR ATRIAL SEPTUM DEFECT W/O PATCH N/A 08/05/2023 Laterality: N/A; Surgeon: Jamal Turcios MD; Location: [facility] HERNIA REPAIR N/A Family History Problem Relation Age of Onset No known problems Mother No known problems [facility] HOSPITAL MEDS: Acetaminophen 650 mg Oral 4x daily Or Acetaminophen 650 mg Per NG tube 4x daily Acetaminophen 975 mg Oral Once Or Acetaminophen 975 mg Per NG tube Once AMIOdarone 200 mg Oral Daily Aspirin 325 mg Oral Daily Atorvastatin 40 mg Oral QHS balsam-castor oil 1 Application Topical TID furOSEmide 20 mg Oral Once Gabapentin 300 mg Oral TID Or gabapentin 300 mg Per NG tube TID Heparin 5,000 Units Subcutaneous Q8H 0800/1600/2200 insulin glargine 20 Units Subcutaneous Q24H Insulin lispro Subcutaneous 4x daily w/meals, HS Melatonin 6 mg Oral QHS Metoprolol 25 mg Oral Q12HNS Multi-Vitamins 1 tablet Per NG tube Daily Or Multi-Vitamins 1 tablet Oral Daily Polyethylene glycol 17 g Oral BID Senna 17.2 mg Oral Q12H Sodium chloride 0.9% ALLERGIES: has No Known Allergies. INFUSIONS: insulin regular 3 Units/hr (04/27/24 0700) nitroGLYCERIN 10 mcg/min (04/27/24 07) Sodium chloride 0.9% 1 mL/hr at 04/27/24 0700 The past family, medical, and social history were otherwise reviewed and documented in the electronic record system. Physical Exam Vital Signs: BP (!) 179/96 (BP Location: Left arm, BP Position: Lying) Pulse 81 Temp 100 F (37.8 C) (Bladder) Resp 21 Ht 1.626 m (5' 4) Wt 97.3 kg (214 lb 9.6 oz) SpO2 93% BMI 36.84 kg/m Smoking Status Never , Wt Readings from Last 3 Encounters: 04/26/24 97.3 kg (214 lb 9.6 oz) 04/05/24 97.9 kg (215 lb 12.8 oz) 03/29/24 95.7 kg (210 lb 15.7 oz) Body mass index is 36.84 kg/m . O2 Sat (%): [92 %-100 %] 93 % O2 Device: nasal cannula Flow (L/min): [2-4] 2 Oxygen Concentration (%): [40-100] 100 Ventilator Type: R860 Mode: EXT (Extubation) Set/Target Tidal Volume (mL): [350] 350 mL/kg IBW Tidal Volume (Actual): [5.91] 5.91 Respiratory Rate - set (bpm): [18] 18 Total Respiratory Rate (bpm): [3-23] 22 PEEP (cm H2O): [6] 6 Pressure Support (cmH2O): [10] 10 Peak Inspiratory Pressure (cmH2O): [9-22] 16 I:E Ratio: 1:1.3 Ventilator Type: R860 Set/Target Tidal Volume (mL): [350] 350 mL/kg IBW Tidal Volume (Actual): [5.91] 5.91 Respiratory Rate - set (bpm): [18] 18 PEEP (cm H2O): [6] 6 Pressure Support (cmH2O): [10] 10 Peak Inspiratory Pressure (cmH2O): [9-22] 16 I:E Ratio: 1:1.3 General/Constitutional: male, who looks his stated age of 53 y.o.. No acute distress. Neck: [place] in place. Cardiac: regular rhythm, normal rate. Wearing post-surgical vest Pulmonary/Chest: Respirations even and unlabored with normal respiratory effort. Abdomen: Soft, non-tender, non-distended, normoactive bowel sounds. No organomegaly. No lipohypertrophy/lipodystrophy. Musculoskeletal: No bony deformities, normal muscle mass and tone Extremities: No cyanosis or clubbing. no peripheral edema. Peripheral Vascular Exam: 2+ dorsalis pedis pulses. Neurological: Conscious, alert and interactive. Skin: Skin is warm and dry. No ulcers or lesions on the feet and nails are intact. Psychiatric: Appropriate mood and affect for his clinical situation. Procedure / Imaging / Lab Data: Pertinent procedure/imaging/lab data was reviewed: Lab Results Component Value Date HGBA1C 7.5 (H) 04/05/2024 Lab Results Component Value Date CHOLESTEROL 185 04/05/2024 TRIG 111 04/27/2024 HDL 41 04/05/2024 LDLCALC 110 (H) 04/05/2024 Lab Results Component Value Date SODIUM 139 04/27/2024 POTASSIUM 4.1 04/27/2024 CHLORIDE 104 04/27/2024 CO2 25 04/27/2024 BUN 14 04/27/2024 CREATSERUM 0.73 04/27/2024 GLUCOSE 113 (H) 04/27/2024 Lab Results Component Value Date SPGRVTYUR 1.015 07/22/2022 GLUCOSEURINE 500 mg/dL (A) 07/22/2022 KETONESURINE Trace (A) 07/22/2022 BLOODURINE Negative 07/22/2022 NITRITESURIN Negative 07/22/2022 LEUKOCESTUR Negative 07/22/2022 WBCURINE 0-5 07/22/2022 RBCURINE 0-2 07/22/2022 BACTERIAURIN ABSENT 07/22/2022 Lab Results Component Value Date TSH 3.248 04/05/2024 T4FREE 1.37 04/05/2024 No results found for: CREATURINE, MICROALBUMIN, MICALBCREAT Lab Results Component Value Date ALT 19 04/05/2024 Prealbumin Date Value Ref Range Status 04/05/2024 31 17 - 34 mg/dL Final FIB-4 Calculation: 0.84 at 04/27/2024 2:11 AM Calculated from: SGOT/AST: 16 U/L at 04/05/2024 11:09 AM SGPT/ALT: 19 U/L at 04/05/2024 11:09 AM Platelets: 232 K/uL at 04/27/2024 2:11 AM Age: 53 years ECHO: Results for orders placed in visit on 04/26/24 CLARITZA (Final) Narrative Echocardiography Report Date/Time: 04/26/2024 11:52 PM PRE-INTERVENTION SUMMARY Pt presents for CABG: LV - low normal systolic function, EF approximately 50%. No RWMAs seen. Normal diastolic function RV - Mildly dilated, normal systolic function Interatrial septum - ASD occlusion device seen, well seated; trace flow seen around device MV - normal annulus, mild MR, no MS AV - trileaflet, trace AI, no TV - normal annulus, no TR Aorta - no significant calcification or atheroma Findings discussed with surgical team. POST-INTERVENTION FINDINGS POST-INTERVENTION SUMMARY S/P CABG: LV - improved systolic function, no RWMAs RV - unchanged MV - slightly worsened MR AV and TV are unchanged No significant effusion seen. CATH: Recent Results (from the past 3650 days) INVASIVE CARDIOVASCULAR PROCEDURE 03/29/2024 (Final) Conclusion Coronary Angiogram: 1) There is a chronic total occlusion in the mid left anterior descending artery in which distally fills late by left collaterals. 2) There is severe disease in the proximal ramus intermedius artery. 3) The remaining coronary arteries have mild/moderate disease as described in detail below. Left Heart Catheterization: 1) The LVEDP is normal at ~ 10 mmHg. 2) Cannot accurately determine LV-Ao gradient on pullback due to ectopy. Recommendations: 1) Evaluation for CABG. Associated attestation - Eyal Stafford MD - 04/27/2024 2:04 PM EST ATTENDING ATTESTATION: The patient was seen and examined independently by me at bedside. I have done the clinical exam personally and have worked together in formulating the plan of care along with Dr Almeida. The case including the history, physical examination, assessment, and plan was discussed in detail with Dr Almeida. I have reviewed the patient's charts and labs in detail. I agree with Dr Almeida's assessment and plan. The patient was seen on 04/27/2024 Eyal Stafford MD documented in this encounter [facility] 05-02-2024 Hospital course Narrative Images from the original note were not included. Discharge Summary Name: Antonia Kruger Age: 53 y.o. Birthday: 1970 Admit Date: 04/26/2024 5:07 AM Discharge Date: 05/02/24 Discharge Time: 14:00 Discharge Unit: [facility] Admission Information Admitting Physician: Jacky Meyer MD, PhD Discharge Information Discharge Physician: Jacky Meyer MD, PhD Problem List Active Hospital Problems Diagnosis CAD (coronary artery disease) Resolved Hospital Problems No resolved problems to display. Brief Summary of Hospital Course for Discharge Summary: Mr. Kruger is a 53 y.o. male who has a pertinent past medical history including HTN, HLD, DM, PFO s/p closure in July of 2023, cardio embolic stroke June 2023, CAD and ischemic cardiomyopathy. He underwent the following surgery: DATE OF SURGERY: 04/26/24 PROCEDURE: CABG x 3 (NICE-LAD, [id number]) , LAAL SURGEON: Dr. Jacky Meyer Post-operatively, patient was extubated and weaned off of all vasopressors and inotropes. The chest tubes and hylton were removed without any complications. Post-operative hypervolemia was treated with IV Lasix and transitioned to oral Lasix. Patient tolerated advancement of diet, and post-operative stress induced hyperglycemia was managed with sliding scale insulin. Endocrinology followed for management of his diabetes. Hospital course was notable for significant atelectasis in left lower lobe which was evaluated by CT scan on 05/01 which confirmed no infiltrates c/f pneumonia. Management with pulmonary toilet, IS, and continue to encourage patient to sleep with his CPAP. This is improving on his PA/lat CXR on day of discharge. Additionally patient had quite a bit of anxiety this admission-- he will discharge with a prescription for hydroxyzine PRN. He was instructed to use it as a last resort after using other non pharmacologic coping mechanisms first. On day of discharge patient is ambulating well, eating, and is having bowel movements. Vital signs are stable, patient is afebrile and comfortably breathing room air. PA/LAT CXR was complete after all chest tubes were removed without evidence of pneumothorax. All incisions are healing appropriately, all chest tubes have been removed, and temporary epicardial wires have been pulled out. Pt is 210 lbs on day of discharge and his preadmission wt is 214-- he will discharge with 40 PO lasix daily x5 days to ensure he is no longer hypervolemic Pt with be discharged to home with with the following cardiac medications: Aspirin, Pravastatin, Metoprolol, Norvasc, and Lisinopril 5mg (equivalent to 2.5mg of his home Ramapril which is not on formulary). We have been slowly titrating back in his home antihypertensives. Is instructed to follow up with PCP for possible resumption of prior ramapril dose/discontinuation of lisinopril if remains hypertensive in the next week. For his diabetes, he will resume his prior to admission medications and will also be started on insulin lispro correction and glargine 28 QAM. He has had his diabetes education and will follow up with his grain unloader closer to home after discharge. This hospitalization, pt's pain was managed via a multimodal approach including tylenol and oxycodone. They will discharge with a prescription for 28 tablets of 5mg oxycodone for continued pain control All discharge instructions and follow up information are in the patient After Visit Summary. Physical Exam General appearance: No acute distress, AOx4, sitting up in chair HEENT: Normocephalic, trachea midline Lungs: CTA. Breathing room air Heart: RRR Abdomen: Nondistended, non-tender Extremities: RLE without edema, LLE with 1+ edema with tamra hose on both legs. Distal extremities are warm and well perfused Skin: Skin color, texture, turgor normal. No rashes or lesions Neurologic: Moves all extremities to command without focal deficits Psych: Interactive, attentive, appropriate insight and mood for situation. Conversational and eager to be discharged today SURGICAL INCISIONS MSI JENNIFER healing appropriately- no signs of dehiscence or erythema Chest tube sites JENNIFER with mild serosanguinous drainage-- no s/s infection L leg SVG site PROPERTY CUSTODIAN, surgical glue intact, mild ecchymosis surrounding surgical sites and along tunnel No groin sutures Brief Summary of Consults for Discharge Summary: Date Consult Brief Summary of Home Therapy Teacher Findings 04/27/24 Endocrinology Diabetes Brief Summary of Procedures and Imaging for Discharge Summary: Date Procedure Brief Summary of Procedure or Imaging 04/26/24 CABG x [address] Meyer Summary of last selected lab results and date obtained: Lab Results Component Value Date WBC 15.07 (H) 05/02/2024 HGB 8.2 (L) 05/02/2024 HCT 26.2 (L) 05/02/2024 PLATELET 448 (H) 05/02/2024 MCV 77.1 (L) 05/02/2024 Lab Results Component Value Date SODIUM 134 (L) 05/02/2024 POTASSIUM 4.4 05/02/2024 CHLORIDE 101 05/02/2024 CO2 24 05/02/2024 BUN 18 05/02/2024 CREATSERUM 0.80 05/02/2024 GLUCOSE 258 (H) 05/02/2024 Lab Results Component Value Date ALT 19 04/05/2024 AST 16 04/05/2024 ALKPHOS 55 04/05/2024 BILITOTAL 0.5 04/05/2024 BILIDIRECT 0.1 04/05/2024 Brief Summary of Labs for Discharge Summary: Pre-op CLARITZA SUMMARY Pt presents for CABG: LV - low normal systolic function, EF approximately 50%. No RWMAs seen. Normal diastolic function RV - Mildly dilated, normal systolic function Interatrial septum - ASD occlusion device seen, well seated; trace flow seen around device MV - normal annulus, mild MR, no MS AV - trileaflet, trace AI, no TV - normal annulus, no TR Aorta - no significant calcification or atheroma Post-op CLARITZA: SUMMARY S/P CABG: LV - improved systolic function, no RWMAs RV - unchanged MV - slightly worsened MR AV and TV are unchanged No significant effusion seen. Discharge Orders XR CHEST PA AND LATERAL 2 VIEWS AMB REFERRAL TO HOME HEALTH - INPATIENT DISCHARGE YU AMB REFERRAL TO CARDIAC REHAB DIET HEART HEALTHY - 4 GM SODIUM Call MD at the phone number provided on your After Visit Summary at discharge Call MD for: Recurrent Low Blood Sugar Call MD for: Recurrent High Blood Sugar Glucose Management CONSISTENT Carbohydrate Diet - Diabetic with Restrictions Call for an appointment with your Academic Affairs Assistant within 2 weeks of discharge. Activity as tolerated Surgical Precautions / Weight lifting Restrictions Driving restrictions Work restrictions Bathing/Shower Restrictions Cough and deep breath Weigh yourself Keep legs elevated at all times to prevent swelling MONITOR FLUID INTAKE Call MD at: Call MD for: Elevated Temperature ( temperature > 100.5 F (38 C)) Call MD for: Signs of Infection/Inflammation Call MD for: Incision Site Change Call MD for: Respiratory Change Changes in Mood or Sleep Pattern Call MD for: Severe Uncontrolled Pain Call MD for: Persistent Nausea or Vomiting Call MD for: Weight Gain Call MD for: Questions Regarding Medication Call 911: Dressing / Wound Care (specify) Incision Care Current Outpatient Meds: Medication List for when you go home START taking these medications Morning Afternoon Evening Bedtime As Needed Alcohol Swabs PADS Use to cleanse fingertip before each blood glucose test. Aspirin 325 MG TABS Take 1 tablet by mouth daily. Last time this was given: 325 mg on May 02, 2024 8:30 AM Start taking on: May 03, 2024 Replaces: Aspirin Low Dose [address] tablet Baqsimi Two Pack 3 MG/DOSE POWD Use as needed for severe low blood sugar (Hypoglycemia) Generic drug: Glucagon Cyanocobalamin 100 MCG TABS Take 1 tablet by mouth daily. Commonly known as: Vitamin B12 Last time this was given: 100 mcg on May 02, 2024 8:30 AM Start taking on: May 03, 2024 furOSEmide 40 MG TABS Take 1 tablet by mouth daily. Commonly known as: LASIX Last time this was given: 40 mg on May 02, 2024 8:30 AM GLUCOSE MONITOR LANCETS PRESCRIPTION Use BEFORE MEALS and at BEDTIME to test Blood Sugar. GLUCOSE TEST STRIPS PRESCRIPTION Use BEFORE MEALS and at BEDTIMEto test Blood Glucose Doctor's comments: Test Strips Patient needs new monitor and prefers brand or substitute brand covered by insurance. hydrOXYzine HCl 25 MG TABS Take 1 tablet by mouth every 6 hours as needed for Anxiety, Itching or Insomnia. Commonly known as: ATARAX Last time this was given: 25 mg on May 01, 2024 9:28 PM insulin glargine 100 UNIT/ML SOPN injection Inject 28 Units under the skin daily every morning. No Titration Last time this was given: Ask your nurse or doctor Insulin lispro (1 Unit Dial) 100 UNIT/ML SOPN Max daily dose 20u. Correction Scale if glucose of: 151-200 add 1 Unit; 201-250 add 2 Units; 251-300 add 3 Units; 301-350 add 4 Units; 351-400 add 5 Units. Commonly known as: HUMALOG Last time this was given: 14 Units on May 02, 2024 12:13 PM Lisinopril 5 MG TABS Take 1 tablet by mouth daily. Commonly known as: PRINIVIL Last time this was given: 5 mg on May 02, 2024 8:30 AM Start taking on: May 03, 2024 Metoprolol succinate 100 MG tablet XL Take 1 tablet by mouth daily. Commonly known as: TOPROL-XL Last time this was given: 100 mg on May 02, 2024 8:30 AM Start taking on: May 03, 2024 Multi-Vitamins TABS Take 1 tablet by mouth daily. Last time this was given: 1 tablet on May 02, 2024 8:30 AM Start taking on: May 03, 2024 oxyCODONE 5 MG TABS Take 1 tablet by mouth every 6 hours as needed for Moderate Pain for up to 10 days. Commonly known as: ROXICODONE For diagnoses: Acute post-operative pain Last time this was given: 5 mg on April 30, 2024 8:23 AM * Pen Beaufort 32G X 4 MM MISC Use new needle with each insulin injection. * Pen Beaufort 32G X 4 MM MISC Use new needle for each insulin injection. Potassium chloride 20 MEQ tab ER tablet Take 2 tablets by mouth daily. Commonly known as: K-DUR Last time this was given: 40 mEq on May 02, 2024 8:39 AM Senna 8.6 MG TABS Take 1 tablet by mouth every 12 hours. Take twice daily while using oxycodone to avoid constipation Commonly known as: SENOKOT Last time this was given: 17.2 mg on May 01, 2024 9:45 AM * The same medication is listed twice. Please discuss with your provider. CONTINUE taking these medications Morning Afternoon Evening Bedtime As Needed Allopurinol 100 MG TABS Take 1 tablet by mouth daily. Commonly known as: ZYLOPRIM amLODIPine 10 MG TABS Take 1 tablet by mouth daily. Commonly known as: Norvasc Last time this was given: 10 mg on May 02, 2024 8:30 AM gliMEPIride 2 MG TABS Take 1 tablet by mouth daily. Commonly known as: AMARYL hydrALAZINE 10 MG TABS Take 1 tablet by mouth 3 times daily as needed for Other (BP >140/90). Commonly known as: APRESOLINE Last time this was given: Ask your nurse or doctor Melatonin 3 MG TABS TAKE 1 TABLET BY MOUTH NIGHTLY Last time this was given: 6 mg on April 29, 2024 9:14 PM metFORMIN 500 MG TABS Take 2 tablets by mouth 2 times daily. Commonly known as: GLUCOPHAGE Pravastatin 40 MG TABS Take 1 tablet by mouth every evening at 6 PM. Commonly known as: PRAVACHOL Last time this was given: 40 mg on May 01, 2024 8:13 PM Trulicity 1.5 MG/0.5ML SOAJ injection Inject under the skin. Takes on Thursday or Thursday' Generic drug: Dulaglutide STOP taking these medications AMIOdarone 200 MG TABS Commonly known as: PACERONE Aspirin Low Dose [address] tablet Generic drug: Aspirin Replaced by: Aspirin 325 MG TABS Metoprolol 25 MG tab regular release Commonly known as: LOPRESSOR Mupirocin 2 % ointment Commonly known as: BACTROBAN Ramipril 5 MG CAPS Commonly known as: ALTACE Follow-up: Krista Schmidt MD [address] [place] [address] Schedule an appointment as soon as possible for a visit in 2 week(s) Jamal Turcios MD [address] Floor [facility] [phone] Schedule an appointment as soon as possible for a visit in 6 week(s) Other [facility] [address] [place] [address] Call in 4 week(s) You have been referred to outpatient cardiac rehab, please call for scheduling/questions following your follow up with surgeon Other [facility] [address] [facility] [address] Follow up on 05/03/2024 Agency will be providing your home care services for Shelter, PT/OT services. . Start of care will be on Thursday, 05.03.2024. Endocrinology Schedule an appointment as soon as possible for a visit in 2 week(s) Insulin management/titration Shower chair Follow up A shower chair is recommended and not covered by insurance. Please purchase at any online or retail pharmacy or store Upcoming Appointments (up to five)-Some appointments for Medical Center outpatient clinics or diagnostic testing locations are not displayed below Provider Department Dept Phone 06/02/2024 2:30 PM [facility] 4, [facility] Imaging [place] [phone] 06/02/2024 3:30 PM CTS CARDIO NURSE PRACTITIONER, [facility] Web Content Developer Center [facility] Arrive at: Arrive to [facility] Registration Desk [phone] 09/08/2024 9:00 AM [facility] ECHO, [facility] Imaging Outpatient [facility] [place] Arrive at: Arrive to 1st Floor Registration [phone] 09/08/2024 11:00 AM Jamal Turcios [facility] [place] Arrive at: Arrive to 1st Floor Registration [phone] documented in this encounter [facility] 04-29-2024 Hospital Discharge instructions Chel Will PA-C - 04/29/2024 6:21 PM EST Images from the original note were not included. Lasix (furosemide) instructions - You are being placed on a diuretic called lasix for continued postoperative fluid removal. In addition, you MAY have been prescribed a potassium supplement, as it is common to lose potassium as you diurese with lasix. Once the lasix is stopped you should also stop the potassium supplement as it is no longer necessary unless told otherwise by your medical provider. If at any point you feel like you are not urinating as much with the lasix or feel like you drinking an excess amount of water to quench your thirst, please stop the lasix and potassium. You and your primary care provider can evaluate your fluid status when you follow up in 1-2 weeks. It is important to remember you cannot gain more than 3 lbs of fat in 1 day or 5 lbs of fat in one week. That weight is excess fluid and most likely means you need some lasix. Please weigh yourself daily as it assists in the management of your fluid status. Tips for Healthy Living - Eat a whole food, plant-predominant diet, increasing plant diversity to greater than 20 plants per week (and more than 30 grams of fiber per day.) - Aim for gre instructor daylight, either outside or near a window. Dim lights and reduce screen use after 7pm.. - Limit eating window to less than 10-12 hours and avoid eating/drinking anything besides water or herbal tea after 7pm Resources for lifestyle management Documentaries: Live to 100: Secrets of the [employer] Maxwell over knives [employer] Websites Nutritionfacts.org [place] Library Books: Mastering Diabetes by Hola Bolivar, PhD Fiber Fueled by Boni Santos MD Together by Brian Milligan MD Prescription: Enroll in Full Plate Living Program Full Plate Living can help you create the habit of eating healthier meals. Enroll in the Full Plate Living program - a free service of [facility]. It s a small step approach that can lead to big health outcomes. Membership provides access to courses, a supportive community and to resources that will improve your health. Specifically, it helps you move toward eating enough fiber foods. Effects may include: Improved Blood Sugar Lower Cholesterol Levels Better Blood Pressure Weight Loss Increased Energy Better Sleep Improved Digestive Regularity Enroll at [employer] or scan the QR code. The following attachments cannot be sent through Care Everywhere.[place] Precautions: Post-op (Indian)Opioids: General Info (Indian)Hypervolemia: General Info (Indian)High Blood Pressure ([facility]) (Indian)Coronary Artery Bypass Graft: Post-op (Indian)Constipation and Pain Medicine ([place]) (Indian)documented in this encounter [facility] 04-26-2024 History and physical note CARDIAC SURGERY HISTORY AND PHYSICAL HPI Mr. Kruger is a 53 y.o. male with a past medical history of HTN, HLD, DM, PFO s/p closure in July of 2023, cardio embolic stroke June 2023, CAD and ischemic cardiomyopathy. He presents with symptoms of chest pain, anxiety, and dry cough. Patient denies any fevers, chills, or sick contacts. REVIEW OF SYSTEMS: General: Denies recent illness or fever or recent sick contacts Neuro: Affirms left sided pointer finger numbness, tingling. Denies any unilateral weakness, or visual disturbances. Cardiac: Affirms recent chest pain. Denies angina, palpitations Pulm: Denies dyspnea on exertion, shortness of breath, orthopnea. : Denies burning with urination GI: Denies black or bloody stools MSK: Patient states they are physically able and ambulates at baseline without assistance or DME Derm: Denies rashes, wounds, or pressure ulcers MEDICATIONS Last taken- NSAIDS: 7 days SKYLER/ARB: 04/22 Peripheral CCB: 04/23 Oral antihyperglycemics: 04/23 Injectable antihyperglycemics: 04/11 Current Outpatient Medications Medication Instructions Allopurinol (ZYLOPRIM) 100 mg, Oral, DAILY AMIOdarone (PACERONE) 400 mg, Oral, 3 times daily amLODIPine (NORVASC) 10 mg, Oral, DAILY Aspirin Low Dose 81 mg, Oral, DAILY Dulaglutide (Trulicity) 1.5 MG/0.5ML Solution Pen-injector injection Subcutaneous, Takes on Thursday or gliMEPIride (AMARYL) 2 mg, Oral, DAILY hydrALAZINE (APRESOLINE) 10 mg, Oral, 3 TIMES DAILY NEEDED Melatonin 3 MG tablet TAKE 1 TABLET BY MOUTH NIGHTLY metFORMIN (GLUCOPHAGE) 1,000 mg, Oral, 2 TIMES DAILY Metoprolol (LOPRESSOR) 12.5 mg, Oral, 2 TIMES DAILY Mupirocin 2 % ointment Apply to inside of nares two times a day for five days prior to surgery Pravastatin (PRAVACHOL) 40 mg, Oral, DAILY EARLY EVENING Ramipril (ALTACE) 5 mg, Oral, DAILY PAST MEDICAL HISTORY Past Medical History: Diagnosis Date CAD (coronary artery disease) Diabetes mellitus Essential hypertension, benign Hyperlipidemia Stroke Past Surgical History: Procedure Laterality Date CLOSURE REPAIR ATRIAL SEPTUM DEFECT W/O PATCH N/A 08/05/2023 Laterality: N/A; Surgeon: Jamal Turcios MD; Location: [facility] HERNIA REPAIR N/A FAMILY HISTORY Family History Problem Relation Age of Onset No known problems Mother No known problems Father SOCIAL HISTORY reports that he has never smoked. He has never used smokeless tobacco. He reports that he does not drink alcohol and does not use drugs. Social History Tobacco Use Smoking Status Never Smokeless Tobacco Never Social History Substance and Sexual Activity Alcohol Use Never ALLERGIES No Known Allergies PHYSICAL EXAM VITALS: There were no vitals taken for this visit. WEIGHT: Wt Readings from Last 1 Encounters: 04/05/24 97.9 kg (215 lb 12.8 oz) General appearance: Alert, cooperative, appears stated age, anxious Lungs: Clear bilaterally without wheezes, rhonchi, or rales Heart: Regular rate and rhythm, no murmur noted Abdomen: Soft, non-distended, non-tender Extremities: No lower extremity edema Pulses: Palpable DP/PT pulses bilaterally Skin: Thorough skin exam including chest and bilateral groins complete without any rashes, wounds, or pressure ulcers Neurologic: No gross focal deficits noted. Affirms left sided pointer finger weakness. Psych: Appropriate mood and affect for clinical situation DIAGNOSTIC RESULTS/PROCEDURES Labs: Lab Results Component Value Date WBC 8.95 04/05/2024 HGB 13.4 04/05/2024 PLATELET 367 (H) 04/05/2024 PTT 29.8 04/05/2024 INR 1.0 04/05/2024 SODIUM 136 04/05/2024 POTASSIUM 4.0 04/05/2024 CHLORIDE 100 04/05/2024 CO2 24 04/05/2024 BUN 11 04/05/2024 CALCIUM 9.7 04/05/2024 MAGNESIUM 1.6 04/05/2024 PHOSPHORUS 2.9 04/05/2024 AST 16 04/05/2024 ALKPHOS 55 04/05/2024 BILITOTAL 0.5 04/05/2024 BILIDIRECT 0.1 04/05/2024 ALBUMIN 4.6 04/05/2024 PREALBUMIN 31 04/05/2024 Imaging 03/29/2024 [facility] Coronary Angiogram: 1) There is a chronic total occlusion in the mid left anterior descending artery in which distally fills late by left collaterals. 2) There is severe disease in the proximal ramus intermedius artery. 3) The remaining coronary arteries have mild/moderate disease as described in detail below. Left Heart Catheterization: 1) The LVEDP is normal at ~ 10 mmHg. 2) Cannot accurately determine LV-Ao gradient on pullback due to ectopy. 03/03/2024 echocardiogram Limited views echo study. Frequent PVCs during the echo study. Left ventricular chamber size is normal with mild concentric remodeling. Low normal systolic function with apical/apical septum akinesis Ejection fraction is 50%. The apex is akinetic and slightly aneurysmal. No LV thrombus. Right ventricular chamber size is slightly enlarged with normal systolic function. S/p PFO closure with 35 mm Amplatzer PFO device on 08/05/2023. Device is seen stable in position.No flow is seen across the device via color doppler. No pericardial effusion. 12/04/2023 MRI cardiac with contrast w/velocity flow map Apical regional LV dysfunction with distal LAD territory non-viable infarct scar suggesting an ischemic cardiomyopathy. LEFT VENTRICLE: There is mild concentric LVH. LV cavity size is mildly dilated with mild systolic dysfunction. Apical septal/inferior and cap akinesis. Quantitative LVEF 48 %. VIABILITY: Late gadolinium enhancement imaging demonstrates apical septal/inferior and cap near transmural (50-75%) non-viable infarct scar. RIGHT VENTRICLE: RV cavity size is normal. RV systolic function is normal. Quantitative RVEF 63 %. LA/RA SEPTUM: Interatrial septal occluder device noted. LEFT ATRIUM: LA cavity size is upper limits of normal. RIGHT ATRIUM: RA cavity size is normal. PERICARDIUM: There is a trivial pericardial effusion. AORTIC VALVE: Peak aortic valve velocity 1.7 m/sec. MITRAL VALVE: There is mild mitral regurgitation. TRICUSPID VALVE: There is trivial tricuspid regurgitation. 07/23/2022 MRI brain without contrast MPRESSION: Stable size of acute parenchymal hemorrhage in the right basal ganglia. No severe intracranial mass effect. Several tiny foci of acute nonhemorrhagic infarct in both hemispheres as detailed above. Underlying chronic ischemic changes. SURGICAL PLAN Pre-op Diagnoses: CAD (coronary artery disease), la posta coronary artery [I25.10] Procedure(s): CABG W/ ARTERY GRAFT OPEN Surgeon(s): Surgeons and Role: * Jacky Meyer MD, PhD - Primary Pre-op aspirin: YES/NO: Yes Pre-op beta cecily: Date taken: 04/26/2024 Time taken:0500 Nickel Allergy: No Anticoagulation plan: N/A- patient is not on IV anticoagulant MRSA/MSSA: MRSA-, MSSA+: nasal mupirocin indicated Antibiotics ordered: Pre-op Antibiotics Cefazolin STS risk: 3.24% PREOPERATIVE PROBLEMS ACUTE CAD Ischemic Cardiomyopathy OR plans described above CHRONIC Neuro Hx Cardio Embolic stroke in 07/2023-- pt endorses intermittent left pointer finger/ thumb numbness, no other residual deficits from stroke Cardiac CAD- Aspirin, statin, beta cecily Hx of PFO s/p closure in 07/2023 Hypertension- Home meds to resume post op once medically appropriate, they have been appropriately held pre-op as above Hyperlipidemia- Continue home statin Pulmonary No acute issues No acute issues Lab Results Component Value Date CREATSERUM 0.60 (L) 04/05/2024 GFR >90 04/05/2024 GI No acute issues There is no height or weight on file to calculate BMI. Endo T2DM- 04/05/2024: Hemoglobin A1C HPLC 7.5 Home meds: Dulaglutide, Glimepride, Metformin Metformin last taken >48h ago, will hold during hospitalization Injectable T2DM antihyperglycemics to be resumed after discharge: Heme Iron Deficiency Anemia screening Patient does not have anemia (Hgb >12) Lab Results Component Value Date HGB 13.4 04/05/2024 Lab Results Component Value Date IRON 96 04/05/2024 TIBC 386 04/05/2024 TRANSFERRIN 309 04/05/2024 IRONSATURAT 25 04/05/2024 ID No infectious concerns Obesity There is no height or weight on file to calculate BMI. - Follow with PCP for dietary and lifestyle modifications. Vy Kent PA-C Cardiac Surgery JANEL 04/26/2024 documented in this encounter [facility] 03-29-2024 Miscellaneous Notes Discharge instructions and printed AVS reviewed with patient by RN, all questions answered. Pt verbalizes understanding. IV dc'd with no difficulty and catheter tip intact. Telemetry dc'd. VS stable at time of discharge. Patient being discharged to home by car with . No patient belongings left at bedside. Post procedure recovery without events. Rt wrist site without bleeding or hematoma, palpable rt radial pulses. Preliminary Report - Brief Cardiac Catheterization Procedure Note Antonia Kruger ([id number]) Pre Procedural Diagnosis Cardiomyopathy, unspecified type [I42.9] Post Procedural Diagnosis Cardiomyopathy, unspecified type [I42.9] Procedure Performed Left heart catheterization and Coronary angiogram Access Site/Hemostasis Right radial, artery, TR Compression Band Findings Left Ventricular End Diastolic Pressure: Normal Left Ventricular Ejection Fraction: Not assessed Preliminary Results of Angiography Obstructive CAD Percutaneous Coronary Intervention No Intervention Intraprocedure Anticoagulation Heparin Post-procedure Anticoagulation If anticoagulation is indicated per primary team, may restart 4 hours after hemostasis has been achieved Estimated Blood Loss Minimal Complications None Admission Does patient need to be admitted: No Surgeon Surgeons and Role: * Jamal Turcios MD - Primary * Lillie Kessler MD - Fellow * Sophia Ulrich MD - Fellow Procedural Staff Cook Helper: Madelin Ellison RN Sedation Nurse: Toma Justice RN Documenter: Rolando Giraldo RN Full report to follow Lillie Kessler MD March 29, 2024 12:54 PM 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 ECG completed. IV started in lt arm. Labs drawn and sent. Pt prep completed. Valuables given to . Clothes secured in room. Questions about procedure answered. Family brought to bedside. Bed in low position, side rail up x2 and call light given to pt. Tele monitor shows NSR with BBB, with occasional PVC's occasionally in couplets. I called patient to schedule his heart cath. This is the 1st time we have called. There was no answer so I left a message on his voice mail requesting that he call us back. Our direct phone number was provided. [phone]. I also left him the following my chart message. Petey Mariee, I tried to contact you by phone but there was no answer. Please call us back at [phone] so we can schedule you heart cath that Dr. Turcios ordered. Thank you, Phil RN documented in this encounter [facility] 03-29-2024 Nurse Note Discharge instructions and printed AVS reviewed with patient by RN, all questions answered. Pt verbalizes understanding. IV dc'd with no difficulty and catheter tip intact. Telemetry dc'd. VS stable at time of discharge. Patient being discharged to home by car with . No patient belongings left at bedside. Post procedure recovery without events. Rt wrist site without bleeding or hematoma, palpable rt radial pulses. [facility] 03-29-2024 Surgery Postoperative evaluation and management note Preliminary Report - Brief Cardiac Catheterization Procedure Note Antonia Kruger ([id number]) Pre Procedural Diagnosis Cardiomyopathy, unspecified type [I42.9] Post Procedural Diagnosis Cardiomyopathy, unspecified type [I42.9] Procedure Performed Left heart catheterization and Coronary angiogram Access Site/Hemostasis Right radial, artery, TR Compression Band Findings Left Ventricular End Diastolic Pressure: Normal Left Ventricular Ejection Fraction: Not assessed Preliminary Results of Angiography Obstructive CAD Percutaneous Coronary Intervention No Intervention Intraprocedure Anticoagulation Heparin Post-procedure Anticoagulation If anticoagulation is indicated per primary team, may restart 4 hours after hemostasis has been achieved Estimated Blood Loss Minimal Complications None Admission Does patient need to be admitted: No Surgeon Surgeons and Role: * Jamal Turcios MD - Primary * Lillie Kessler MD - Fellow * Sophia Ulrich MD - Fellow Procedural Staff Cook Helper: Madelin Ellison RN Sedation Nurse: Toma Justice RN Documenter: Rolando Giraldo RN Full report to follow Lillie Kessler MD March 29, 2024 12:54 PM [facility] Work Phone: 03-29-2024 Nurse Note Pt to mobile home laborer, handoff report to Rolando GASPAR [facility] 03-29-2024 History and physical note PRE-CATH H&P UPDATE Patient seen and examined by me on day of procedure. Agree with H&P as documented by Dr. Jamal Turcios on 03/03/24, there are no significant updates or changes. This cardiac catheterization is being done to investigate abnormal cardiac MRI findings suggestive of ischemic cardiomyopathy with LVEF 48% and distal LAD territory non-viable infarct scar.. Verbal consent obtained and sedation assessment completed. Will proceed with the left cardiac catheterization with coronary angiography. Additionally: Surgery scheduled in the next 12 months: No History of pathologic bleeding: No Potential barriers to dual antiplatelet therapy: No Allergy to contrast dye: No Estimated Creatinine Clearance: 160 mL/min (A) (by C-G formula based on SCr of 0.61 mg/dL (L)). Access concerns: No Anticipated access will be right radial artery. Cardiac MRI (12/04/23): Apical regional LV dysfunction with distal LAD territory non-viable infarct scar suggesting an ischemic cardiomyopathy. Allergies, Laboratory Studies: has No Known Allergies. Lab Results Component Value Date CREATSERUM 0.61 (L) 08/05/2023 Lab Results Component Value Date INR 1.0 07/25/2022 PTT 29.4 07/25/2022 Lab Results Component Value Date WBC 9.95 03/29/2024 HGB 13.7 03/29/2024 HCT 44.6 03/29/2024 PLATELET 351 (H) 03/29/2024 MCV 78.5 (L) 03/29/2024 Estimated GFR: Estimated Creatinine Clearance: 160 mL/min (A) (by C-G formula based on SCr of 0.61 mg/dL (L)). Sophia Ulrich MD [facility] Work Phone: 03-29-2024 History and physical note PRE-CATH H&P UPDATE Patient seen and examined by me on day of procedure. Agree with H&P as documented by Dr. Jamal Turcios on 03/03/24, there are no significant updates or changes. This cardiac catheterization is being done to investigate abnormal cardiac MRI findings suggestive of ischemic cardiomyopathy with LVEF 48% and distal LAD territory non-viable infarct scar.. Verbal consent obtained and sedation assessment completed. Will proceed with the left cardiac catheterization with coronary angiography. Additionally: Surgery scheduled in the next 12 months: No History of pathologic bleeding: No Potential barriers to dual antiplatelet therapy: No Allergy to contrast dye: No Estimated Creatinine Clearance: 160 mL/min (A) (by C-G formula based on SCr of 0.61 mg/dL (L)). Access concerns: No Anticipated access will be right radial artery. Cardiac MRI (12/04/23): Apical regional LV dysfunction with distal LAD territory non-viable infarct scar suggesting an ischemic cardiomyopathy. Allergies, Laboratory Studies: has No Known Allergies. Lab Results Component Value Date CREATSERUM 0.61 (L) 08/05/2023 Lab Results Component Value Date INR 1.0 07/25/2022 PTT 29.4 07/25/2022 Lab Results Component Value Date WBC 9.95 03/29/2024 HGB 13.7 03/29/2024 HCT 44.6 03/29/2024 PLATELET 351 (H) 03/29/2024 MCV 78.5 (L) 03/29/2024 Estimated GFR: Estimated Creatinine Clearance: 160 mL/min (A) (by C-G formula based on SCr of 0.61 mg/dL (L)). Sophia Ulrich MD documented in this encounter [facility] 03-29-2024 Nurse Note Pt arrives to room 12 in IPR for LHC, cor. ECG completed. IV started in lt arm. Labs drawn and sent. Pt prep completed. Valuables given to . Clothes secured in room. Questions about procedure answered. Family brought to bedside. Bed in low position, side rail up x2 and call light given to pt. Tele monitor shows NSR with BBB, with occasional PVC's occasionally in couplets. [facility] 03-03-2024 Nurse Note I called patient to schedule his heart cath. This is the 1st time we have called. There was no answer so I left a message on his voice mail requesting that he call us back. Our direct phone number was provided. [phone]. I also left him the following my chart message. Petey Antonia, I tried to contact you by phone but there was no answer. Please call us back at [phone] so we can schedule you heart cath that Dr. Turcios ordered. Thank you, Phil GASPAR [facility] 03-03-2024 History of Present illness Narrative Antonia Kruger is a 53 y.o. male who was referred by Dr Mariano Cee for evaluation for transcatheter closure of patent foramen ovale (PFO) due to concern for PFO-associated stroke (i.e., cryptogenic stroke); s/p PFO closure using a 35 mm Amplatzer PFO Occluder 08/05/23. In summary, the patient presented 06/2022 with left hand/leg numbness and left hand incoordination, and was diagnosed with hemorrhagic stroke. Patient was evaluated by Neurology at [facility] and on discharge summary 07/25/22 stated cardioembolic stroke with bilateral ischemic infarcts and ICH; CLARITZA with PFO; referred for PFO closure evaluation. Subsequently, underwent PFO closure using a 35 mm Amplatzer PFO Occluder 08/05/23. From his stroke had residual numbness on left pointer finger. Denies recurrent stroke. Since last visit CMR obtained with abnormal findings as detailed below. Does not experience angina, chest pain, dyspnea, LE edema, orthopnea, PND, lightheadedness, syncope or palpitations. Prior cardiac imaging stress test: denies Prior cardiac catheterization: denies Past Medical History: - stroke ischemic and intracranial hemorrhage - patent foramen ovale (PFO) - PFO closure using a 35 mm Amplatzer PFO Occluder on 08/05/23 - hypertension - hyperlipidemia - diabetes mellitus Past Social History: Social History Tobacco Use Smoking status: Never Smokeless tobacco: Never Vaping Use Vaping status: Never Used Substance Use Topics Alcohol use: Never Drug use: Never Past Family History: - Adopted at so does know family history. No children. No Known Allergies Current Outpatient Medications Medication Sig Dispense Refill Allopurinol 100 MG tablet Take 1 tablet by mouth daily. amLODIPine (Norvasc) 10 MG tablet Take 1 tablet by mouth daily. 90 tablet 3 Aspirin Low Dose [address] tablet TAKE 1 TABLET BY MOUTH ONCE DAILY AT SUPPER TIME Dulaglutide (Trulicity) 1.5 MG/0.5ML Solution Pen-injector injection Inject under the skin. gliMEPIride 2 MG tablet Take 1 tablet by mouth daily. hydrALAZINE 10 MG tablet Take 1 tablet by mouth 3 times daily as needed for Other (BP >140/90). Melatonin 3 MG tablet TAKE 1 TABLET BY MOUTH NIGHTLY metFORMIN 500 MG tablet Take 2 tablets by mouth 2 times daily. Pravastatin 40 MG tablet Take 1 tablet by mouth every evening at 6 PM. Ramipril 5 MG capsule Take 1 capsule by mouth daily. No current facility-administered medications for this visit. Review of Systems (ROS): ROS reviewed and negative unless otherwise stated. Physical Exam: Blood pressure 144/80, pulse 74, height 1.702 m (5' 7), weight 98.7 kg (217 lb 8 oz), SpO2 98%. Gen - well nourished; alert and orientated x 3, mood normal Head & Neck- normocephalic; no JVD Lungs- clear to auscultation bilateral without rales CV- regular rate and rhythm. Soft flow murmur or gallops Abd- non-tender; non-distended; +BS; no R/G Neuro- no gross motor deficits, gait normal Extr- no edema bilateral; warm distal extremities Skin- no facial rashes Lab Results Component Value Date WBC 8.84 08/05/2023 Lab Results Component Value Date SODIUM 138 08/05/2023 POTASSIUM 3.9 08/05/2023 CHLORIDE 102 08/05/2023 CO2 24 08/05/2023 BUN 20 08/05/2023 CREATSERUM 0.61 (L) 08/05/2023 Lab Results Component Value Date ALT 19 07/22/2022 AST 13 07/22/2022 [id number] [facility] NORMAL SINUS RHYTHM LEFT AXIS DEVIATION RIGHT BUNDLE BRANCH BLOCK LVH WITH REPOLARIZATION ABNORMALITY - personally reviewed Event Monitor: 08/05/22 - 09/03/22 - sinus rhythm. During sleep, episodes of 2:1 AV block vs blocked PACs LE Venous Duplex: 07/25/22 - Right Lower Limb: No evidence of acute deep venous thrombosis in the lower extremity. - Left Lower Limb: No evidence of acute deep venous thrombosis in the lower extremity. CT Head: 07/22/22 No significant interval change in the appearance of the right basal ganglia parenchymal hematoma when accounting for differences in head positioning. MRI Brain: 07/23/22 - Stable size of acute parenchymal hemorrhage in the right basal ganglia. No severe intracranial mass effect. - Several tiny foci of acute nonhemorrhagic infarct in both hemispheres as detailed above. - Underlying chronic ischemic changes. Transesophageal Echocardiogram: 07/24/22 Left ventricle is normal in size and systolic function, visual EF 60-65%. Right ventricle is normal in size and systolic function. No LA, RA, or BEN thrombus visualized. Non-specific mitral valve thickening with trivial MR. No pericardial effusion is present. Grade 3 aortic atherosclerosis noted in the descending aorta. Left to right interatrial shunt suggestive of PFO noted by Bubble study and color Doppler during normal respiration. Aorta: No dilation to extent seen Transthoracic Echocardiogram: 08/05/23 S/p PFO closure with 35 mm Amplatzer PFO device on 08/05/2023. No flow is seen across the device via color doppler. Left ventricle is normal in size with normal systolic function, LVEF by biplane method 57%. Akinetic/aneurysmal apex. Asymmetric septal hypertrophy up to 1.6 cm is seen. No LVOT obstruction. Right ventricle is normal in size with normal systolic function. Valves are normal in structure. No significant valvular dysfunction. Mild left atrial enlargement. Unable to estimate RVSP due to insufficient TR jet. Given RWMA would consider LAD distribution infarction vs HOCM - Aorta: no dilation to extent seen. Transthoracic Echocardiogram: 09/10/23 Left Ventricle: Chamber size is normal. Normal wall thickness. No concentric nor eccentric hypertrophy. Normal global systolic function. Wall motion abnormality: See wall scoring diagram. Ejection fraction is low normal (50-55%). Diastolic function is normal. Right Ventricle: Chamber size is mildly enlarged. Normal wall thickness. Segmental wall motion is normal. Systolic function is normal. Left Atrium: Chamber size is normal. Aortic Valve: Trileaflet valve. Leaflet mobility is normal. No regurgitation. No stenosis. Mitral Valve: Normal appearing leaflets. Leaflet mobility is normal. No regurgitation. No valve stenosis. Tricuspid Valve: Normal leaflets. Leaflet mobility is normal. No regurgitation. No stenosis. - Aorta: No dilation to extent seen. - Adequate appearance of atrial septal closure device. No color flow evidence of residual shunting. Cardiac MRI: 12/04/23 - Apical regional LV dysfunction with distal LAD territory non-viable infarct scar suggesting an ischemic cardiomyopathy. -- - Mild MR ---- - Mild concentric LVH. LV cavity size is mildly dilated with mild systolic dysfunction. Apical septal/inferior and cap akinesis. Quantitative LVEF 48 %. - Late gadolinium enhancement imaging demonstrates apical septal/inferior and cap near transmural (50-75%) non-viable infarct scar. - RV cavity size is normal. RV systolic function is normal. Quantitative RVEF 63 %. - Interatrial septal occluder device noted. -LA cavity size is upper limits of normal. - RA cavity size is normal. - There is a trivial pericardial effusion. - Peak aortic valve velocity 1.7 m/sec. - There is mild mitral regurgitation. - There is trivial tricuspid regurgitation. - No evidence of myocardial edema/inflammation on T2 mapping. Transthoracic Echocardiogram: 03/03/24 - Limited views echo study. Frequent PVCs during the echo study. - Left ventricular chamber size is normal with mild concentric remodeling. Low normal systolic function with apical/apical septum akinesis Ejection fraction is 50%. The apex is akinetic and slightly aneurysmal. No LV thrombus. - Right ventricular chamber size is slightly enlarged with normal systolic function. - S/p PFO closure with 35 mm Amplatzer PFO device on 08/05/2023. Device is seen stable in position.No flow is seen across the device via color doppler. - No pericardial effusion. Transcatheter Closure of Patent Foramen Ovale (PFO): 08/05/23 1) Successful PFO closure using a 35 mm Amplatzer PFO Occluder guided by fluoroscopy and intracardiac echocardiogram. Assessment and Plan: Antonia Kruger is a 53 y.o. male who was referred by Dr Mariano Cee for evaluation for transcatheter closure of patent foramen ovale (PFO) due to concern for PFO-associated stroke (i.e., cryptogenic stroke); s/p PFO closure using a 35 mm Amplatzer PFO Occluder 08/05/23. 1. Patent foramen ovale (PFO) and concern for PFO-associated stroke (i.e., cryptogenic stroke): The patient was evaluated by Neurology and concerning for cardioembolic stroke, thus referred for PFO closure. See below. 2. PFO transcatheter closure: PFO closure using a 35 mm Amplatzer PFO Occluder 08/05/23. TTEs 08/05/23 and 09/10/23, studies reviewed, with stable device. TTE follow-up today 03/03/24 reviewed and stable device. Continue aspirin 81 mg daily for 6 months and longer if tolerated. Continue endocarditis prophylaxis. Follow-up TTE ordered for ~ 12 month follow-up from device placement. 3. Stroke: see above. Follows with Neurology, Laurie Tellez, [place]. Continue taking aspirin and atorvastatin. 4. Hypertension: Patient is taking hydralazine and amlodipine 10 mg daily (not sure if taking ramipril 5 mg daily) followed by primary care provider (PCP) including labs. No longer taking coreg 25 mg twice daily and lisinopril per PCP. Discussed with patient due to mild decrease in LVEF, to stop amlodipine and restart Coreg and lisinopril, and decrease hydralazine as needed. Patient states will review with PCP locally who manages his hypertensive medications, and letter will be sent from our office. 5. Hyperlipidemia: Continue taking atorvastatin 40 mg daily followed by PCP. 6. Left ventricular (LV) regional wall motion abnormality (RWMA) / LV systolic dysfunction: TTE 08/05/23 normal LVEF though akinetic/aneurysmal septum and asymmetric septal hypertrophy up to 1.6 cm. Further, TTE 09/10/23 with RWMA. Thus, cardiac MRI obtained 12/04/23 with apical regional LV dysfunction (LVEF 48%) with distal left anterior descending artery territory non-viable infarct scar suggesting an ischemic cardiomyopathy, reviewed; no report of hypertrophic cardiomyopathy. Patient without heart failure symptoms. Discussed with patient risks/benefits of performing a cardiac catheterization and would like to proceed. Case request placed. 7. Mitral regurgitation (MR): Mild MR on CMR 12/04/23. Continue to follow clinically and echocardiogram as needed. documented in this encounter [facility] 03-03-2024 History of Present illness Narrative Definity Risk Screening: Explained Definity use to patient including potential side effects with emphasis on patient informing the RN/technologist if they develop any symptoms after administration. status: no Medication list reviewed. Known sensitivity to Perflutren or Polyethylene Glycol (PEG-containing products such as bowel preparations or laxatives): no Definity dose: 1.5 ml diluted with 8.5 ml saline (start with 1-2 ml, additional doses as needed) Total dose given: 3 mL After administration of Definity contrast, the patient experienced no side effects and was without complaints. IV removed and intact. Adequate hemostasis achieved. documented in this encounter [facility] 12-17-2023 Telephone encounter Note RN will send a letter to the pt to call us in regards to results. Due to HIPAA violation, cannot send results to address listed unless confirmed by the patient. [facility] 12-17-2023 Miscellaneous Notes RN will send a letter to the pt to call us in regards to results. Due to HIPAA violation, cannot send results to address listed unless confirmed by the patient. Called patient again to review results of CMR 12/04/23, however, can not get in touch with patient. Attempted numerous times to reach patient. Can you please send the results to his house via mail so he has them. Please let patient know to follow-up in clinic to discuss in detail. Thank you. documented in this encounter [facility] 12-16-2023 Telephone encounter Note Called patient again to review results of CMR 12/04/23, however, can not get in touch with patient. Attempted numerous times to reach patient. Can you please send the results to his house via mail so he has them. Please let patient know to follow-up in clinic to discuss in detail. Thank you. [facility]: 10-08-[facility]23 History of Present illness Narrative Antonia Kruger is a 52 y.o. male who was referred by Dr Mariano Cee for evaluation for transcatheter closure of patent foramen ovale (PFO) due to concern for PFO-associated stroke (i.e., cryptogenic stroke); s/p PFO closure using a 35 mm Amplatzer PFO Occluder 08/05/23. Presents for hospital follow-up. In summary, the patient presented 06/2022 with left hand/leg numbness and left hand incoordination, and was diagnosed with hemorrhagic stroke. Patient was evaluated by Neurology at [facility] and on discharge summary 07/25/22 stated cardioembolic stroke with bilateral ischemic infarcts and ICH; CLARITZA with PFO; referred for PFO closure evaluation. Subsequently, underwent PFO closure using a 35 mm Amplatzer PFO Occluder 08/05/23. Tolerated the procedure. From his stroke had residual numbness on left pointer finger. Denies recurrent stroke. Patient does not experience angina, chest pain, dyspnea, LE edema, orthopnea, PND, lightheadedness, syncope or palpitations. Prior cardiac imaging stress test: denies Prior cardiac catheterization: denies Past Medical History: - stroke ischemic and intracranial hemorrhage - patent foramen ovale (PFO) - PFO closure using a 35 mm Amplatzer PFO Occluder on 08/05/23 - hypertension - hyperlipidemia - diabetes mellitus Past Social History: Social History Tobacco Use Smoking status: Never Smokeless tobacco: Never Vaping Use Vaping status: Never Used Substance Use Topics Alcohol use: Never Drug use: Never Past Family History: - Adopted at so does know family history. No children. No Known Allergies Current Outpatient Medications Medication Sig Dispense Refill Allopurinol 100 MG tablet Take 1 tablet by mouth daily. amLODIPine (Norvasc) 10 MG tablet Take 1 tablet by mouth daily. 90 tablet 3 Aspirin Low Dose [address] tablet TAKE 1 TABLET BY MOUTH ONCE DAILY AT SUPPER TIME Dulaglutide (Trulicity) 1.5 MG/0.5ML Solution Pen-injector injection Inject under the skin. gliMEPIride 2 MG tablet Take 1 tablet by mouth daily. hydrALAZINE 10 MG tablet Take 1 tablet by mouth 3 times daily as needed for Other (BP >140/90). Melatonin 3 MG tablet TAKE 1 TABLET BY MOUTH NIGHTLY metFORMIN 500 MG tablet Take 2 tablets by mouth 2 times daily. Pravastatin 40 MG tablet Take 1 tablet by mouth every evening at 6 PM. Ramipril 5 MG capsule Take 1 capsule by mouth daily. No current facility-administered medications for this visit. Review of Systems (ROS): ROS reviewed and negative unless otherwise stated. Physical Exam: There were no vitals taken for this visit. Gen - well nourished; alert and orientated x 3, mood normal Head & Neck- normocephalic; no JVD Lungs- clear to auscultation bilateral without rales CV- regular rate and rhythm. Soft flow murmur, gallops, or rubs Abd- non-tender; non-distended; +BS; no R/G Neuro- no gross motor deficits, gait normal Extr- no edema bilateral; warm distal extremities Skin- no facial rashes Lab Results Component Value Date WBC 8.84 08/05/2023 Lab Results Component Value Date SODIUM 138 08/05/2023 POTASSIUM 3.9 08/05/2023 CHLORIDE 102 08/05/2023 CO2 24 08/05/2023 BUN 20 08/05/2023 CREATSERUM 0.61 (L) 08/05/2023 Lab Results Component Value Date ALT 19 07/22/2022 AST 13 07/22/2022 EC05-AUG-2023 [facility] NORMAL SINUS RHYTHM LEFT AXIS DEVIATION RIGHT BUNDLE BRANCH BLOCK LVH WITH REPOLARIZATION ABNORMALITY - personally reviewed Event Monitor: 08/05/22 - 09/03/22 - sinus rhythm. During sleep, episodes of 2:1 AV block vs blocked PACs LE Venous Duplex: 07/25/22 - Right Lower Limb: No evidence of acute deep venous thrombosis in the lower extremity. - Left Lower Limb: No evidence of acute deep venous thrombosis in the lower extremity. CT Head: 07/22/22 No significant interval change in the appearance of the right basal ganglia parenchymal hematoma when accounting for differences in head positioning. MRI Brain: 07/23/22 - Stable size of acute parenchymal hemorrhage in the right basal ganglia. No severe intracranial mass effect. - Several tiny foci of acute nonhemorrhagic infarct in both hemispheres as detailed above. - Underlying chronic ischemic changes. Transesophageal Echocardiogram: 07/24/22 Left ventricle is normal in size and systolic function, visual EF 60-65%. Right ventricle is normal in size and systolic function. No LA, RA, or BEN thrombus visualized. Non-specific mitral valve thickening with trivial MR. No pericardial effusion is present. Grade 3 aortic atherosclerosis noted in the descending aorta. Left to right interatrial shunt suggestive of PFO noted by Bubble study and color Doppler during normal respiration. Aorta: No dilation to extent seen Transthoracic Echocardiogram: 08/05/23 S/p PFO closure with 35 mm Amplatzer PFO device on 08/05/2023. No flow is seen across the device via color doppler. Left ventricle is normal in size with normal systolic function, LVEF by biplane method 57%. Akinetic/aneurysmal apex. Asymmetric septal hypertrophy up to 1.6 cm is seen. No LVOT obstruction. Right ventricle is normal in size with normal systolic function. Valves are normal in structure. No significant valvular dysfunction. Mild left atrial enlargement. Unable to estimate RVSP due to insufficient TR jet. Given RWMA would consider LAD distribution infarction vs HOCM - Aorta: no dilation to extent seen. Transthoracic Echocardiogram: 09/10/23 Left Ventricle: Chamber size is normal. Normal wall thickness. No concentric nor eccentric hypertrophy. Normal global systolic function. Wall motion abnormality: See wall scoring diagram. Ejection fraction is low normal (50-55%). Diastolic function is normal. Right Ventricle: Chamber size is mildly enlarged. Normal wall thickness. Segmental wall motion is normal. Systolic function is normal. Left Atrium: Chamber size is normal. Aortic Valve: Trileaflet valve. Leaflet mobility is normal. No regurgitation. No stenosis. Mitral Valve: Normal appearing leaflets. Leaflet mobility is normal. No regurgitation. No valve stenosis. Tricuspid Valve: Normal leaflets. Leaflet mobility is normal. No regurgitation. No stenosis. - Aorta: No dilation to extent seen. - Adequate appearance of atrial septal closure device. No color flow evidence of residual shunting. Transcatheter Closure of Patent Foramen Ovale (PFO): 08/05/23 1) Successful PFO closure using a 35 mm Amplatzer PFO Occluder guided by fluoroscopy and intracardiac echocardiogram. Assessment and Plan: Antonia Kruger is a 52 y.o. male who was referred by Dr Mariano Cee for evaluation for transcatheter closure of patent foramen ovale (PFO) due to concern for PFO-associated stroke (i.e., cryptogenic stroke); s/p PFO closure using a 35 mm Amplatzer PFO Occluder 08/05/23. Presents for hospital follow-up. 1. Patent foramen ovale (PFO) and concern for PFO-associated stroke (i.e., cryptogenic stroke): CLARITZA 07/24/22 demonstrated a PFO. The patient was evaluated by Neurology and concerning for cardioembolic stroke, thus referred for PFO closure. See below. 2. PFO transcatheter closure: Underwent PFO closure using a 35 mm Amplatzer PFO Occluder on 08/05/23. Tolerated the procedure. TTEs 08/05/23 and 09/10/23 with stable device, studies reviewed. Continue aspirin 81 mg daily for 6 months and longer if tolerated. Continue endocarditis prophylaxis. TTE follow-up ordered. 3. Stroke: see above. Patient is scheduled to follow-up in Neurology with Laurie Tellez CNP. Continue taking aspirin and atorvastatin. 4. Hypertension: Continue taking Coreg 25 mg twice daily, Lisinopril 40 mg daily, and Amlodipine 10 mg daily followed by primary care provider (PCP) including labs. 5. Hyperlipidemia: Continue taking Atorvastatin 40 mg daily followed by PCP. 6. 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 Further, TTE 09/10/23 with RWMA. ECG abnormal as noted above, reviewed. Cardiac MRI has been ordered to assess for left anterior descending artery territory infarct vs. hypertrophic cardiomyopathy vs. other. documented in this encounter [facility] 09-11-2023 Telephone encounter Note LVM for pt to call back to discuss results of echo per Dr. Turcios and to keep the following appts as scheduled. [facility] 09-11-2023 Miscellaneous Notes LVM for pt to call back to discuss results of echo per Dr. Turcios and to keep the following appts as scheduled. [facility] Staff: Please call patient and review results below including device is stable. Please let patient know to follow-up in clinic as scheduled to review in detail. In addition, needs to still complete CMR. Please have patient schedule this study. Thank you. Transthoracic Echocardiogram: 09/10/23 Left Ventricle: Chamber size is normal. Normal wall thickness. No concentric nor eccentric hypertrophy. Normal global systolic function. Wall motion abnormality: See wall scoring diagram. Ejection fraction is low normal (50-55%). Diastolic function is normal. Right Ventricle: Chamber size is mildly enlarged. Normal wall thickness. Segmental wall motion is normal. Systolic function is normal. Left Atrium: Chamber size is normal. Aortic Valve: Trileaflet valve. Leaflet mobility is normal. No regurgitation. No stenosis. Mitral Valve: Normal appearing leaflets. Leaflet mobility is normal. No regurgitation. No valve stenosis. Tricuspid Valve: Normal leaflets. Leaflet mobility is normal. No regurgitation. No stenosis. - Aorta: No dilation to extent seen. - Adequate appearance of atrial septal closure device. No color flow evidence of residual shunting. documented in this encounter [facility] 09-10-2023 Telephone encounter Note [facility] Staff: Please call patient and review results below including device is stable. Please let patient know to follow-up in clinic as scheduled to review in detail. In addition, needs to still complete CMR. Please have patient schedule this study. Thank you. Transthoracic Echocardiogram: 09/10/23 Left Ventricle: Chamber size is normal. Normal wall thickness. No concentric nor eccentric hypertrophy. Normal global systolic function. Wall motion abnormality: See wall scoring diagram. Ejection fraction is low normal (50-55%). Diastolic function is normal. Right Ventricle: Chamber size is mildly enlarged. Normal wall thickness. Segmental wall motion is normal. Systolic function is normal. Left Atrium: Chamber size is normal. Aortic Valve: Trileaflet valve. Leaflet mobility is normal. No regurgitation. No stenosis. Mitral Valve: Normal appearing leaflets. Leaflet mobility is normal. No regurgitation. No valve stenosis. Tricuspid Valve: Normal leaflets. Leaflet mobility is normal. No regurgitation. No stenosis. - Aorta: No dilation to extent seen. - Adequate appearance of atrial septal closure device. No color flow evidence of residual shunting. [facility] Work Phone: 08-05-2023 Miscellaneous Notes Discharge instructions and printed AVS reviewed with patient by Jyoti SINGH and bedside RN Annalee, all questions answered. Pt verbalizes understanding. IV dc'd with no difficulty and catheter tip intact. Telemetry dc'd. VS stable at time of discharge. Patient being discharged to home by wheelchair with to drive him home. No patient belongings left at bedside. Post procedure recovery without events. Bilateral groin site without bleeding or hematoma, palpable DP/PT pulses. Ambulated,voided and ate prior to DC without difficulty. Summary: post PFO closure note Preliminary Report - Brief Cardiac Catheterization Procedure Note Antonia Kruger ([id number]) Pre Procedural Diagnosis PFO (patent foramen ovale) [Q21.12] Cerebrovascular accident (CVA), unspecified mechanism [I63.9] Post Procedural Diagnosis S/p PFO closure Procedure Performed Percutaneous PFO closure Access Site/Hemostasis Right femoral vein, Sheath left in Left femoral vein, Sheath left in Findings Left Ventricular End Diastolic Pressure: Not assessed Left Ventricular Ejection Fraction: Not assessed Preliminary Results of Angiography NA Percutaneous Coronary Intervention NA Intraprocedure Anticoagulation Heparin Post-procedure Anticoagulation Anticoagulation to be restarted: No Estimated Blood Loss Minimal Complications None Admission Does patient need to be admitted: No Surgeon Surgeons and Role: * Jamal Turcios MD - Primary * Raquel Gupta MD - Fellow Procedural Staff Cook Helper: Laurie Katz RN Sedation Nurse: Mariann Wilson RN Documenter: Shama Xavier RN Full report to follow Raquel Gupta MD August 05, 2023 2:22 PM Pt arrives to room 2406 in [facility] for PFO closure. ECG completed. IV started in left arm. Labs drawn and sent. 0.9 NS IVF initiated @ kvomL/ hr per pump. Pt prep completed. Valuables given to Dalila. Clothes secured in room. Questions about procedure answered. Family brought to bedside. Bed in low position, side rail up x2 and call light given to pt. Tele monitor shows NSR. Antonia Cruz RN PREPARING FOR YOUR FEEDER DRIVER PROCEDURE Your catheterization is schedule on 08/04 at: [facility] at the [facility] located at [address] [place], [place] [id number]. You are to arrive at [facility] on the 1st floor at 11AM. You may use practice professional parking ($10) or park in the [facility] [employer] [facility] just past the [place] ($3). There is a walkway from the 2nd floor of the garage into the [place] Lobby. You are to have nothing to eat after LIGHT BREAKFAST BEFORE 7AM. You may drink CLEAR liquids up to the time you arrive or 2 hrs before the procedure. (water, juice, clear soda, tea, coffee NO CREAMERS). You are to take your medications as usual on the AM of the procedure; any exceptions will be listed below. IF YOU DO NOT EAT BREAKFAST HOLD ALL DIABETIC MEDICATIONS MORNING OF CATH IF YOU DO EAT BREAKFAST, YOU MAY TAKE GLIMEPLRIDE, BUT HOLD METFORMIN. HOLD METFORMIN 48HR (THU, ) RESTART THURSDAY Expect to be at the hospital 8hrs, possible overnight stay. Bring an up to date list of all medications with you to procedure. If you require CPAP bring it with you. If you have a contrast dye/iodine allergy or if you are on Coumadin, apixiban (Eliquis), rivaroxaban (Xarelto), or dabigatran (Pradaxa) and it was NOT addressed during scheduling, please call NOW to notify the lab ([phone]). Continue asprin, Plavix (clopidogrel), Effient (prasugrel), and Brilinta (ticagrelor). You will receive sedation during your procedure and will not be permitted to drive for 24 hrs. You will need a friend or family member to accompany you home (a bus is not acceptable). Failure to have a responsible person on discharge will result in cancellation of your procedure. If the need for blood work was discussed, we recommend having labs drawn about 1 week before procedure (no more than 2 weeks before). Failure to have labs drawn may result in delay or cancellation of your procedure. Your labs WILL BE DRAWN ON ARRIVAL. Click the link below to be directed to a video which will explain the catheterization and outpatient process: [email or web address] Please be aware, other departments sometimes advise our patients they will receive a reminder call from the mobile home laborer prior to their procedure. We do not provide reminder calls. Please alonzo your calendar with your procedure date, and call with any questions [phone]. Thank you, HUBERT Fontenot Waterfront Director Via PHONE, [place]IR[place] Called to schedule PFO closure, no answer, left message with call back number [phone]. documented in this encounter [facility] 08-05-2023 Nurse Note Discharge instructions and printed AVS reviewed with patient by Jyoti SINGH and bedside RN Annalee, all questions answered. Pt verbalizes understanding. IV dc'd with no difficulty and catheter tip intact. Telemetry dc'd. VS stable at time of discharge. Patient being discharged to home by wheelchair with to drive him home. No patient belongings left at bedside. Post procedure recovery without events. Bilateral groin site without bleeding or hematoma, palpable DP/PT pulses. Ambulated,voided and ate prior to DC without difficulty. [facility] 08-05-2023 Surgery Postoperative evaluation and management note Summary: post PFO closure note Preliminary Report - Brief Cardiac Catheterization Procedure Note Antonia Kruger ([id number]) Pre Procedural Diagnosis PFO (patent foramen ovale) [Q21.12] Cerebrovascular accident (CVA), unspecified mechanism [I63.9] Post Procedural Diagnosis S/p PFO closure Procedure Performed Percutaneous PFO closure Access Site/Hemostasis Right femoral vein, Sheath left in Left femoral vein, Sheath left in Findings Left Ventricular End Diastolic Pressure: Not assessed Left Ventricular Ejection Fraction: Not assessed Preliminary Results of Angiography NA Percutaneous Coronary Intervention NA Intraprocedure Anticoagulation Heparin Post-procedure Anticoagulation Anticoagulation to be restarted: No Estimated Blood Loss Minimal Complications None Admission Does patient need to be admitted: No Surgeon Surgeons and Role: * Jamal Turcios MD - Primary * Raquel Gupta MD - Fellow Procedural Staff Cook Helper: Laurie Katz RN Sedation Nurse: Mariann Wilson RN Documenter: Shama Xavier RN Full report to follow Raquel Gupta MD August 05, 2023 2:22 PM [facility] 08-05-2023 History and physical note Summary: pre PFO closure consult note INTERVENTIONAL CARDIOLOGY HISTORY AND PHYSICAL IDENTIFYING INFORMATION PATIENT: Antonia Kruger ADMIT DATE: 08/05/2023 TIME OF EVALUATION: 08/05/2023 10:50 AM CHIEF COMPLAINT Previous cryptogenic stroke HISTORY OF PRESENT ILLNESS Antonia Kruger is a 52 y.o. male with a history of DM, HTN, who had previous ischemic CVA. Patient is here for percutaneous PFO closure. Indication, risks, benefits and alternatives were discussed with the patient who has agreed to proceed. Past Medical History: Diagnosis Date Diabetes mellitus Essential hypertension, benign Hyperlipidemia Stroke Past Surgical History: Procedure Laterality Date HERNIA REPAIR N/A Prior to Admission Medications Prescriptions Last Dose Informant Patient Reported? Taking? Allopurinol 100 MG tablet 08/04/2023 Yes Yes Sig: Take 1 tablet by mouth daily. Aspirin Low Dose [address] tablet 08/04/2023 Yes Yes Sig: TAKE 1 TABLET BY MOUTH ONCE DAILY AT SUPPER TIME Atorvastatin 40 MG tablet No No Sig: Take 1 tablet by mouth at bedtime. Dulaglutide (Trulicity) 1.5 MG/0.5ML Solution Pen-injector injection Past Week Yes Yes Sig: Inject under the skin. Lisinopril 40 MG tablet No No Sig: Take 1 tablet by mouth daily. Melatonin 3 MG tablet 08/04/2023 Yes Yes Sig: TAKE 1 TABLET BY MOUTH NIGHTLY amLODIPine (Norvasc) 10 MG tablet 08/04/2023 No Yes Sig: Take 1 tablet by mouth daily. carveDILOL 25 MG tablet No No Sig: Take 1 tablet by mouth every 12 hours. gliMEPIride 2 MG tablet 08/04/2023 Yes Yes Sig: Take 1 tablet by mouth daily. metFORMIN 500 MG tablet 08/04/2023 Yes Yes Sig: Take 2 tablets by mouth 2 times daily. Facility-Administered Medications: None No Known Allergies Social History Socioeconomic History Marital status: Spouse name: Not on file Number of children: Not on file Years of education: Not on file Highest education level: Not on file Occupational History Not on file Tobacco Use Smoking status: Never Smokeless tobacco: Never Vaping Use Vaping status: Never Used Substance and Sexual Activity Alcohol use: Never Drug use: Never Sexual activity: Not on file Other Topics Concern Not on file Social History Narrative Not on file Social Determinants of Health Financial Resource Strain: Not on file Food Insecurity: Not on file Transportation Needs: Not on file Physical Activity: Not on file Stress: Not on file Social Connections: Not on file Intimate Partner Violence: Not on file Housing Stability: Not on file Family History Problem Relation Age of Onset No known problems Mother No known problems Father REVIEW OF SYSTEMS Gen: no weight change, fatigue, weakness, fever, chills, or night sweats HEENT: no headache, no vision or hearing changes Resp: no cough, sputum, hemoptysis, SOB, wheezing CV: no chest pain; no palpitations, orthopnea GI: no abdominal pain, N/V, diarrhea or constipation, hematochezia or melena : no dysuria or hematuria Skin: no rashes Musculoskeletal: no muscle weakness or pain, no joint pain Hematologic: no history of anemia or bleeding diathesis Endocrine: does have history of diabetes, no heat/cold intolerance Neurologic: no loss of sensation, numbness, tingling, weakness Psychiatric: no history of depression, anxiety, or hallucinations PHYSICAL EXAMS Temp: [97.5 F (36.4 C)] 97.5 F (36.4 C) Pulse (Heart Rate): [71] 71 Resp Rate: [20] 20 BP: (177)/(90) 177/90 Weight: [94.9 kg (209 lb 3.5 oz)] 94.9 kg (209 lb 3.5 oz) General: NAD, lying in bed comfortably, appears well nourished HEENT: Normocephalic, atraumatic. PERRLA, EOMI, sclerae are anicteric. Moist mucus membranes, oropharynx clear w/o erythema or exudates, Mallampati Class: 3 Neck: Trachea is midline, normal range of motion Resp/Back: Normal respiratory effort, no audible wheezes, rales or rhonchi. Cardiac: Regular rate and rhythm, normal S1+S2; no S3 or S4; no murmurs or rubs; PMI non-displaced; radial pulse 1+, femoral pulse 1+, PT and DP pulses 1+, normal Barbeau test Abd: Soft, non-distended, non-tender, no rebound tenderness or guarding, normoactive bowel sounds, no masses or organomegaly appreciated, no CVA tenderness Msk: No swelling, erythema, joint tenderness; range of motion within normal limits Ext: no edema. No clubbing or cyanosis Skin: warm, dry, good skin turgor; no rashes appreciated Neuro: sensation and muscle strength normal and without deficit LABS Lab Results Component Value Date SODIUM 136 07/25/2022 POTASSIUM 3.6 07/25/2022 CHLORIDE 104 07/25/2022 CO2 22 07/25/2022 BUN 16 07/25/2022 CREATSERUM 0.58 (L) 07/25/2022 Lab Results Component Value Date WBC 8.84 08/05/2023 HGB 13.6 08/05/2023 HCT 43.0 08/05/2023 PLATELET 317 08/05/2023 MCV 75.7 (L) 08/05/2023 Lab Results Component Value Date INR 1.0 07/25/2022 PTT 29.4 07/25/2022 Event Monitor: 08/05/22 - 09/03/22 - sinus rhythm. During sleep, episodes of 2:1 AV block vs blocked PACs LE Venous Duplex: 07/25/22 - Right Lower Limb: No evidence of acute deep venous thrombosis in the lower extremity. - Left Lower Limb: No evidence of acute deep venous thrombosis in the lower extremity. CT Head: 07/22/22 No significant interval change in the appearance of the right basal ganglia parenchymal hematoma when accounting for differences in head positioning. MRI Brain: 07/23/22 - Stable size of acute parenchymal hemorrhage in the right basal ganglia. No severe intracranial mass effect. - Several tiny foci of acute nonhemorrhagic infarct in both hemispheres as detailed above. - Underlying chronic ischemic changes. Transesophageal Echocardiogram: 07/24/22 Left ventricle is normal in size and systolic function, visual EF 60-65%. Right ventricle is normal in size and systolic function. No LA, RA, or BEN thrombus visualized. Non-specific mitral valve thickening with trivial MR. No pericardial effusion is present. Grade 3 aortic atherosclerosis noted in the descending aorta. Left to right interatrial shunt suggestive of PFO noted by Bubble study and color Doppler during normal respiration. Aorta: No dilation to extent seen ASSESSMENT AND PLAN Antonia Kruger is a 52 y.o. male with a history of cryptogenic ischemic CVA. Patient comes in for a percutaneous PFO closure. Additionally: Surgery Scheduled in the next 12 months: No History of pathologic bleeding: No Potential barriers to dual antiplatelet therapy: No Allergy to contrast dye: No Estimated Creatinine Clearance: 169 mL/min (A) (by C-G formula based on SCr of 0.58 mg/dL (L)). Access concerns: No Anticipated access will be R CFV and LCFV. Consent signed and sedation assessment completed. Will proceed with percutaneous PFO closure with intracardiac echo guidance. Raquel Gupta MD Fellow, Interventional Cardiology [facility] 08-05-2023 History and physical note Summary: pre PFO closure consult note INTERVENTIONAL CARDIOLOGY HISTORY AND PHYSICAL IDENTIFYING INFORMATION PATIENT: Antonia Kruger ADMIT DATE: 08/05/2023 TIME OF EVALUATION: 08/05/2023 10:50 AM CHIEF COMPLAINT Previous cryptogenic stroke HISTORY OF PRESENT ILLNESS Antonia Kruger is a 52 y.o. male with a history of DM, HTN, who had previous ischemic CVA. Patient is here for percutaneous PFO closure. Indication, risks, benefits and alternatives were discussed with the patient who has agreed to proceed. Past Medical History: Diagnosis Date Diabetes mellitus Essential hypertension, benign Hyperlipidemia Stroke Past Surgical History: Procedure Laterality Date HERNIA REPAIR N/A Prior to Admission Medications Prescriptions Last Dose Informant Patient Reported? Taking? Allopurinol 100 MG tablet 08/04/2023 Yes Yes Sig: Take 1 tablet by mouth daily. Aspirin Low Dose [address] tablet 08/04/2023 Yes Yes Sig: TAKE 1 TABLET BY MOUTH ONCE DAILY AT SUPPER TIME Atorvastatin 40 MG tablet No No Sig: Take 1 tablet by mouth at bedtime. Dulaglutide (Trulicity) 1.5 MG/0.5ML Solution Pen-injector injection Past Week Yes Yes Sig: Inject under the skin. Lisinopril 40 MG tablet No No Sig: Take 1 tablet by mouth daily. Melatonin 3 MG tablet 08/04/2023 Yes Yes Sig: TAKE 1 TABLET BY MOUTH NIGHTLY amLODIPine (Norvasc) 10 MG tablet 08/04/2023 No Yes Sig: Take 1 tablet by mouth daily. carveDILOL 25 MG tablet No No Sig: Take 1 tablet by mouth every 12 hours. gliMEPIride 2 MG tablet 08/04/2023 Yes Yes Sig: Take 1 tablet by mouth daily. metFORMIN 500 MG tablet 08/04/2023 Yes Yes Sig: Take 2 tablets by mouth 2 times daily. Facility-Administered Medications: None No Known Allergies Social History Socioeconomic History Marital status: Spouse name: Not on file Number of children: Not on file Years of education: Not on file Highest education level: Not on file Occupational History Not on file Tobacco Use Smoking status: Never Smokeless tobacco: Never Vaping Use Vaping status: Never Used Substance and Sexual Activity Alcohol use: Never Drug use: Never Sexual activity: Not on file Other Topics Concern Not on file Social History Narrative Not on file Social Determinants of Health Financial Resource Strain: Not on file Food Insecurity: Not on file Transportation Needs: Not on file Physical Activity: Not on file Stress: Not on file Social Connections: Not on file Intimate Partner Violence: Not on file Housing Stability: Not on file Family History Problem Relation Age of Onset No known problems Mother No known problems Father REVIEW OF SYSTEMS Gen: no weight change, fatigue, weakness, fever, chills, or night sweats HEENT: no headache, no vision or hearing changes Resp: no cough, sputum, hemoptysis, SOB, wheezing CV: no chest pain; no palpitations, orthopnea GI: no abdominal pain, N/V, diarrhea or constipation, hematochezia or melena : no dysuria or hematuria Skin: no rashes Musculoskeletal: no muscle weakness or pain, no joint pain Hematologic: no history of anemia or bleeding diathesis Endocrine: does have history of diabetes, no heat/cold intolerance Neurologic: no loss of sensation, numbness, tingling, weakness Psychiatric: no history of depression, anxiety, or hallucinations PHYSICAL EXAMS Temp: [97.5 F (36.4 C)] 97.5 F (36.4 C) Pulse (Heart Rate): [71] 71 Resp Rate: [20] 20 BP: (177)/(90) 177/90 Weight: [94.9 kg (209 lb 3.5 oz)] 94.9 kg (209 lb 3.5 oz) General: NAD, lying in bed comfortably, appears well nourished HEENT: Normocephalic, atraumatic. PERRLA, EOMI, sclerae are anicteric. Moist mucus membranes, oropharynx clear w/o erythema or exudates, Mallampati Class: 3 Neck: Trachea is midline, normal range of motion Resp/Back: Normal respiratory effort, no audible wheezes, rales or rhonchi. Cardiac: Regular rate and rhythm, normal S1+S2; no S3 or S4; no murmurs or rubs; PMI non-displaced; radial pulse 1+, femoral pulse 1+, PT and DP pulses 1+, normal Barbeau test Abd: Soft, non-distended, non-tender, no rebound tenderness or guarding, normoactive bowel sounds, no masses or organomegaly appreciated, no CVA tenderness Msk: No swelling, erythema, joint tenderness; range of motion within normal limits Ext: no edema. No clubbing or cyanosis Skin: warm, dry, good skin turgor; no rashes appreciated Neuro: sensation and muscle strength normal and without deficit LABS Lab Results Component Value Date SODIUM 136 07/25/2022 POTASSIUM 3.6 07/25/2022 CHLORIDE 104 07/25/2022 CO2 22 07/25/2022 BUN 16 07/25/2022 CREATSERUM 0.58 (L) 07/25/2022 Lab Results Component Value Date WBC 8.84 08/05/2023 HGB 13.6 08/05/2023 HCT 43.0 08/05/2023 PLATELET 317 08/05/2023 MCV 75.7 (L) 08/05/2023 Lab Results Component Value Date INR 1.0 07/25/2022 PTT 29.4 07/25/2022 Event Monitor: 08/05/22 - 09/03/22 - sinus rhythm. During sleep, episodes of 2:1 AV block vs blocked PACs LE Venous Duplex: 07/25/22 - Right Lower Limb: No evidence of acute deep venous thrombosis in the lower extremity. - Left Lower Limb: No evidence of acute deep venous thrombosis in the lower extremity. CT Head: 07/22/22 No significant interval change in the appearance of the right basal ganglia parenchymal hematoma when accounting for differences in head positioning. MRI Brain: 07/23/22 - Stable size of acute parenchymal hemorrhage in the right basal ganglia. No severe intracranial mass effect. - Several tiny foci of acute nonhemorrhagic infarct in both hemispheres as detailed above. - Underlying chronic ischemic changes. Transesophageal Echocardiogram: 07/24/22 Left ventricle is normal in size and systolic function, visual EF 60-65%. Right ventricle is normal in size and systolic function. No LA, RA, or BEN thrombus visualized. Non-specific mitral valve thickening with trivial MR. No pericardial effusion is present. Grade 3 aortic atherosclerosis noted in the descending aorta. Left to right interatrial shunt suggestive of PFO noted by Bubble study and color Doppler during normal respiration. Aorta: No dilation to extent seen ASSESSMENT AND PLAN Antonia Kruger is a 52 y.o. male with a history of cryptogenic ischemic CVA. Patient comes in for a percutaneous PFO closure. Additionally: Surgery Scheduled in the next 12 months: No History of pathologic bleeding: No Potential barriers to dual antiplatelet therapy: No Allergy to contrast dye: No Estimated Creatinine Clearance: 169 mL/min (A) (by C-G formula based on SCr of 0.58 mg/dL (L)). Access concerns: No Anticipated access will be R CFV and LCFV. Consent signed and sedation assessment completed. Will proceed with percutaneous PFO closure with intracardiac echo guidance. Raquel Gupta MD Fellow, Interventional Cardiology documented in this encounter [facility] 08-05-2023 Nurse Note Pt arrives to room 2406 in [facility] for PFO closure. ECG completed. IV started in left arm. Labs drawn and sent. 0.9 NS IVF initiated @ kvomL/ hr per pump. Pt prep completed. Valuables given to Dalila. Clothes secured in room. Questions about procedure answered. Family brought to bedside. Bed in low position, side rail up x2 and call light given to pt. Tele monitor shows NSR. Antonia Cruz RN [facility] 07-10-2023 Nurse Note PREPARING FOR YOUR FEEDER DRIVER PROCEDURE Your catheterization is schedule on 08/04 at: [facility] at the [facility] located at [address] [place] [id number]. You are to arrive at [facility] on the 1st floor at 11AM. You may use practice professional parking ($10) or park in the [employer] [facility] [facility]age just past the [place] ($3). There is a walkway from the 2nd floor of the garage into the [place] Lobby. You are to have nothing to eat after LIGHT BREAKFAST BEFORE 7AM. You may drink CLEAR liquids up to the time you arrive or 2 hrs before the procedure. (water, juice, clear soda, tea, coffee NO CREAMERS). You are to take your medications as usual on the AM of the procedure; any exceptions will be listed below. IF YOU DO NOT EAT BREAKFAST HOLD ALL DIABETIC MEDICATIONS MORNING OF CATH IF YOU DO EAT BREAKFAST, YOU MAY TAKE GLIMEPLRIDE, BUT HOLD METFORMIN. HOLD METFORMIN 48HR (THU, ) RESTART THURSDAY Expect to be at the hospital 8hrs, possible overnight stay. Bring an up to date list of all medications with you to procedure. If you require CPAP bring it with you. If you have a contrast dye/iodine allergy or if you are on Coumadin, apixiban (Eliquis), rivaroxaban (Xarelto), or dabigatran (Pradaxa) and it was NOT addressed during scheduling, please call NOW to notify the lab ([phone]). Continue asprin, Plavix (clopidogrel), Effient (prasugrel), and Brilinta (ticagrelor). You will receive sedation during your procedure and will not be permitted to drive for 24 hrs. You will need a friend or family member to accompany you home (a bus is not acceptable). Failure to have a responsible person on discharge will result in cancellation of your procedure. If the need for blood work was discussed, we recommend having labs drawn about 1 week before procedure (no more than 2 weeks before). Failure to have labs drawn may result in delay or cancellation of your procedure. Your labs WILL BE DRAWN ON ARRIVAL. Click the link below to be directed to a video which will explain the catheterization and outpatient process: https://www.youtube.com/watch?[email or web address] [email or web address] Please be aware, other departments sometimes advise our patients they will receive a reminder call from the mobile home laborer prior to their procedure. We do not provide reminder calls. Please alonzo your calendar with your procedure date, and call with any questions [phone]. Thank you, HUBERT Fontenot Waterfront Director Via PHONE, [facility] [facility] Nurse Note Called to schedule PFO closure, no answer, left message with call back number [phone][facility] History of Present illness Narrative Antonia Kruger is a 52 y.o. male who was referred by Dr Mariano Cee for evaluation for transcatheter closure of patent foramen ovale (PFO) due to concern for PFO-associated stroke (i.e., cryptogenic stroke). In summary, the patient presented 06/2022 with left hand/leg numbness and left hand incoordination, and was diagnosed with hemorrhagic stroke. Patient was evaluated by Neurology at [facility] and on discharge summary 07/25/22 stated cardioembolic stroke with bilateral ischemic infarcts and ICH; CLARITZA with PFO; referred for PFO closure evaluation. Residual numbness on left pointer finger, no further strokes. Patient returns to clinic to discuss PFO closure.Since his last visit, patient reports he is interested in PFO closure now. He underwent cardiac monitoring which did not show evidence of atrial fibrillation. He was seen by Marion Gardner a few weeks ago and noted blood pressure to be significantly elevated, improved after increase in Amlodipine. Patient does not experience angina, chest pain, dyspnea, LE edema, orthopnea, PND, lightheadedness, syncope or palpitations. Prior cardiac imaging stress test: denies Prior cardiac catheterization: denies Past Medical History: - stroke ischemic and intracranial hemorrhage - patent foramen ovale (PFO) - hypertension - hyperlipidemia - diabetes mellitus Past Social History: Social History Tobacco Use Smoking status: Never Smokeless tobacco: Never Vaping Use Vaping Use: Never used Substance Use Topics Alcohol use: Never Drug use: Never Past Family History: - Adopted at so does know family history. No children. No Known Allergies Current Outpatient Medications Medication Sig Dispense Refill Allopurinol 100 MG tablet Take 1 tablet by mouth daily. amLODIPine (Norvasc) 10 MG tablet Take 1 tablet by mouth daily. 90 tablet 3 Aspirin Low Dose [address] tablet TAKE 1 TABLET BY MOUTH ONCE DAILY AT SUPPER TIME Atorvastatin 40 MG tablet Take 1 tablet by mouth at bedtime. 30 tablet 1 carveDILOL 25 MG tablet Take 1 tablet by mouth every 12 hours. 60 tablet 1 Dulaglutide (Trulicity) 1.5 MG/0.5ML Solution Pen-injector injection Inject under the skin. gliMEPIride 2 MG tablet Take 1 tablet by mouth daily. Lisinopril 40 MG tablet Take 1 tablet by mouth daily. 30 tablet 1 Melatonin 3 MG tablet TAKE 1 TABLET BY MOUTH NIGHTLY metFORMIN 500 MG tablet Take 2 tablets by mouth 2 times daily. No current facility-administered medications for this visit. Review of Systems (ROS): ROS reviewed and negative unless otherwise stated. Physical Exam: Blood pressure 140/80, pulse 64, height 1.753 m (5' 9), weight 95.3 kg (210 lb). Gen - well nourished; alert and orientated x 3, mood normal Head & Neck- normocephalic; no JVD Lungs- clear to auscultation bilateral without rales, rhonchi, wheezing CV- regular rate and rhythm. Soft flow murmur. No gallops, rubs Abd- non-tender; non-distended; +BS Neuro- no gross motor deficits, gait normal Extr- no edema bilateral; warm distal extremities Skin- no facial rashes Lab Results Component Value Date WBC 8.99 07/25/2022 Lab Results Component Value Date SODIUM 136 07/25/2022 POTASSIUM 3.6 07/25/2022 CHLORIDE 104 07/25/2022 CO2 22 07/25/2022 BUN 16 07/25/2022 CREATSERUM 0.58 (L) 07/25/2022 Lab Results Component Value Date ALT 19 07/22/2022 AST 13 07/22/2022 Event Monitor: 08/05/22 - 09/03/22 - sinus rhythm. During sleep, episodes of 2:1 AV block vs blocked PACs LE Venous Duplex: 07/25/22 - Right Lower Limb: No evidence of acute deep venous thrombosis in the lower extremity. - Left Lower Limb: No evidence of acute deep venous thrombosis in the lower extremity. CT Head: 07/22/22 No significant interval change in the appearance of the right basal ganglia parenchymal hematoma when accounting for differences in head positioning. MRI Brain: 07/23/22 - Stable size of acute parenchymal hemorrhage in the right basal ganglia. No severe intracranial mass effect. - Several tiny foci of acute nonhemorrhagic infarct in both hemispheres as detailed above. - Underlying chronic ischemic changes. Transesophageal Echocardiogram: 07/24/22 Left ventricle is normal in size and systolic function, visual EF 60-65%. Right ventricle is normal in size and systolic function. No LA, RA, or BEN thrombus visualized. Non-specific mitral valve thickening with trivial MR. No pericardial effusion is present. Grade 3 aortic atherosclerosis noted in the descending aorta. Left to right interatrial shunt suggestive of PFO noted by Bubble study and color Doppler during normal respiration. Aorta: No dilation to extent seen Assessment and Plan: Antonia Kruger is a 52 y.o. male who has been referred by Dr Mariano Cee for evaluation for transcatheter closure of patent foramen ovale (PFO) due to concern for PFO-associated stroke (i.e., cryptogenic stroke). 1. Patent foramen ovale (PFO) and concern for PFO-associated stroke (i.e., cryptogenic stroke): Transesophageal echocardiogram demonstrated a PFO. Lower extremity Duplex without evidence of deep venous thrombosis. Event recorder without atrial fibrillation/flutter. The patient was evaluated by Neurology and concerning for cardioembolic stroke, thus referred for PFO closure evaluation. Patient was initially evaluated 09/11/22 and presents to further discuss PFO closure; after further thought and discussion, he is interested in pursuing PFO closure. Have discussed with the patient at length the randomized clinical trial data on PFO transcatheter closure in patient's with cryptogenic stroke, and the risks/benefits in PFO transcatheter closure. I did discuss that PFO transcatheter closure decreases the recurrence of stroke greater as compared to medical therapy alone, however, in those who had a cryptogenic stroke where an alternative etiology of stroke could not be determined. Scheduling request has been ordered for use of a commercial PFO device (patient is not interested in PFO device clinical trial). 2. Stroke: see above. Patient is scheduled to follow-up in Neurology with Laurie Tellez CNP. Continue taking aspirin and atorvastatin. 3. Hypertension: Continue taking Coreg 25 mg twice daily, Lisinopril 40 mg daily, and Amlodipine recently increased to 10 mg daily. Followed by primary care physician (PCP) including labs. 4. Hyperlipidemia: Continue taking Atorvastatin 40 mg daily followed by PCP. Gudelia Oliver MD Fellow, Interventional Cardiology Patient seen and examined independently and with Dr Gudelia Oliver in clinic on 07/02/23. I agree with Dr Oliver's history, physical examination, and medical decisions as outlined with appropriate editing of entire note. I discussed my findings and the therapeutic plan with Dr Oliver. Jamal Turcios MD instructor looping Department of Medicine Division of Cardiovascular Medicine [facility] Patient seen and examined independently and with Dr Gudelia Oliver in clinic on 07/02/23. I agree with Dr Oliver's history, physical examination, and medical decisions as outlined with appropriate editing of entire note. I discussed my findings and the therapeutic plan with Dr Oliver. documented in this encounter [facility] 06-12-2023 History of Present illness Narrative , is a 52 y.o. male who presented 06/12/2023 at the [facility] [place]. Antonia has a medical history of PFO, CVA (hemorrhagic stroke), HTN, HLD, T2DM who presented for a follow up. He was accompanied by his . Blood pressure today is elevated at 172/100. Patient says he took his morning medications but was planning on spending the weekend in [place] and forgot his medications. He is attempting to get a couple of day supply as they had planned on spending a couple of days in [place] from [facility]. If they cannot get his medications, he plans to return home. Repeat BP 162/100. Increased Amlodipine to 10mg daily and continue Carvedilol and Lisinopril. Denies chest pain, shortness of breath palpitations, syncope, near syncope, edema. Dr. Turcios spoke with the patient regarding closing the PFO at his last visit. Patient decided to think about it before making a decision. He is now ready to have the PFO closure done. I will reach out to Dr. Turcios on the patient's decision to proceed with the procedure. Review of Systems All other systems reviewed and are negative. Physical Exam Vitals and nursing note reviewed. Constitutional: Appearance: Normal appearance. Cardiovascular: Rate and Rhythm: Normal rate and regular rhythm. Pulses: Normal pulses. Heart sounds: Normal heart sounds. Pulmonary: Effort: Pulmonary effort is normal. Breath sounds: Normal breath sounds. Skin: General: Skin is warm and dry. Neurological: General: No focal deficit present. Mental Status: Alert and oriented to person, place, and time. Psychiatric: Mood and Affect: Mood normal. Vitals: 06/12/23 1440 06/12/23 1508 BP: (!) 172/100 (!) 162/100 Pulse: 79 SpO2: 97% Weight: 95.5 kg (210 lb 9.6 oz) Height: 1.753 m (5' 9) Wt Readings from Last 3 Encounters: 06/12/23 95.5 kg (210 lb 9.6 oz) 09/29/22 97.6 kg (215 lb 1.6 oz) 09/11/22 105.2 kg (232 lb) Body mass index is 31.1 kg/m . Current Outpatient Medications Medication Sig Allopurinol 100 MG tablet Take 1 tablet by mouth daily. amLODIPine 5 MG tablet Take 1 tablet by mouth daily. Aspirin Low Dose [address] tablet TAKE 1 TABLET BY MOUTH ONCE DAILY AT SUPPER TIME Atorvastatin 40 MG tablet Take 1 tablet by mouth at bedtime. carveDILOL 25 MG tablet Take 1 tablet by mouth every 12 hours. Dulaglutide (Trulicity) 1.5 MG/0.5ML Solution Pen-injector injection Inject under the skin. gliMEPIride 2 MG tablet Take 1 tablet by mouth daily. Lisinopril 40 MG tablet Take 1 tablet by mouth daily. Melatonin 3 MG tablet TAKE 1 TABLET BY MOUTH NIGHTLY metFORMIN 500 MG tablet Take 2 tablets by mouth 2 times daily. Review Of Tests and Records: MCT 09/03/2022 NSR, no atrial fibrillation detected CLARITZA 07/24/2022 LVEF 60-65%, no LA/RA/BEN thrombus visualized, trivial MR, grade 3 aortic atherosclerosis, left to right shung suggestive of PFO by Bubble study ASSESSMENT/PLAN: * CVA - Suspect associated with PFO - MCT 09/03/2022 NSR, no atrial fibrillation detected - CLARITZA 07/24/2022 LVEF 60-65%, no LA/RA/BEN thrombus visualized, trivial MR, grade 3 aortic atherosclerosis, left to right shung suggestive of PFO by Bubble study - Asymptomatic - Patient would like to proceed with PFO closure procedure by Dr. Turcios. Continue Carvedilol, Atorvastatin, ASA * Essential hypertension - Blood pressure is elevated. - Suspect anxiety contributing to his elevated blood pressure as he forgot his antihypertensive medications at home when planning on staying in [place] for the weekend. - Initial BP 172/100. Repeat BP 162/100. - Increased Amlodipine to 10mg. Continue Carvedilol and Lisinopril * Hyperlipidemia Lab Results Component Value Date CHOLESTEROL 166 07/23/2022 TRIG 179 (H) 07/23/2022 HDL 40 07/23/2022 LDLCALC 90 07/23/2022 - Continue statin therapy, ASA * T2DM Lab Results Component Value Date HGBA1C 10.0 (H) 07/22/2022 - Treated * GRECIA - Diligent with CPAP Follow up with Dr. Turcios documented in this encounter [facility] 06-12-2023 Instructions MIRA Hernandez - 06/12/2023 3:00 PM EST 1. Increase Amlodipine to 10mg (may take two 5mg tablets to use up your supply of medication). documented in this encounter [facility] 09-29-2022 History of Present illness Narrative [facility] Department of Neurology Section of Cerebrovascular Disease and Neurocritical [facility] Hospital Follow Up IDENTIFYING PATIENT INFORMATION: Antonia Kruger MR# [id number] 09/29/2022 CHIEF COMPLAINT: Follow up after hospitalization HISTORY OF PRESENT ILLNESS: The patient Antonia Kruger is a 51 y.o. male has a past medical history of Diabetes mellitus, Essential hypertension, benign, Hyperlipidemia, and Stroke. Antonia Kruger for follow-up after recent hospitalization. For details, please refer to the discharge summary dated 07/25/22. In summary, the patient presented on 07/22/2022 with 2 days of left hand/leg numbness and left hand incoordination and was diagnosed with hemorrhagic stroke. Initial symptoms began 07/20/22. He reported left hand loss of sensation and mild weakness, thought it would resolve and slept the night at home. The next day the patient had trouble getting out of bed due to left leg weakness and upper extremity weakness persisted. Patient was evaluated at the [facility] and was hypertensive with BP 196-218/115-179. Head CT demonstrated a right basal ganglia intercerebral hemorrhage with no mid line shift. He was transferred to [facility]. In the ED at [facility], NIHSS [address] confirmed stable findings from outside hospital. MRI done in ED showed acute intraparenchymal hematoma with vasogenic edema as well as tiny foci of acute non hemorrhagic infarct in both hemispheres. Stroke workup: CT head: acute right intraparenchymal hemorrhage 31 by 13 mm MRI brain: stable hemorrhage R BG, several tiny foci of acute nonhemorrhagic infarcts bilaterally. CLARITZA 07/24/22: patent foramen ovale, DVT studies negative. Hypercoagulable and autoimmune work up in process. Hgba1c 10, LDL 90 NEIDA: negative Patient was diagnosed with right basal ganglia ICH, bilateral punctate ischemic infarcts with presumed cryptogenic etiology. Started on atorvastatin 40mg and aspirin 81mg on 07/25/22. PAST MEDICALHISTORY: Past Medical History: Diagnosis Date Diabetes mellitus Essential hypertension, benign Hyperlipidemia Stroke PAST SURGICAL HISTORY: No past surgical history on file. CURRENT MEDICATIONS: Current Outpatient Medications Medication Sig Dispense Refill Allopurinol 100 MG tablet Take 1 tablet by mouth daily. amLODIPine 5 MG tablet Take 1 tablet by mouth daily. 30 tablet 1 Aspirin Low Dose [address] tablet TAKE 1 TABLET BY MOUTH ONCE DAILY AT SUPPER TIME Atorvastatin 40 MG tablet Take 1 tablet by mouth at bedtime. 30 tablet 1 carveDILOL 25 MG tablet Take 1 tablet by mouth every 12 hours. 60 tablet 1 Dulaglutide (Trulicity) 1.5 MG/0.5ML Solution Pen-injector injection Inject under the skin. gliMEPIride 2 MG tablet Take 1 tablet by mouth daily. Lisinopril 40 MG tablet Take 1 tablet by mouth daily. 30 tablet 1 Melatonin 3 MG tablet TAKE 1 TABLET BY MOUTH NIGHTLY metFORMIN 500 MG tablet Take 2 tablets by mouth 2 times daily. No current facility-administered medications for this visit. ALLERGIES: No Known Allergies SOCIAL HISTORY: Social History Tobacco Use Smoking status: Never Smokeless tobacco: Never Vaping Use Vaping Use: Never used Substance Use Topics Alcohol use: Never Drug use: Never Psycho-Social History: He reports that he has never smoked. He has never used smokeless tobacco. He reports that he does not drink alcohol and does not use drugs. 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 FAMILY HISTORY: No family history of early strokes PAIN ASSESSMENT (Patient reports Pain): none FALL ASSESSMENT: none MEDICATION COMPLIANCE: Takes medication as prescribed without missed doses RECENT HOSPITALIZATION: none HOME HEALTH NEEDS: none FUNCTIONAL ASSESSMENT (Able to perform all ADLs): Performs all ADL's independently REVIEW OF SYSTEMS: No history of fever, chills, sweats, weight loss, fatigue, vision loss, double vision,visual scintillations, blurring, hearing loss, tinnitus, voice change, speech problems, chest pain, dyspnea, palpitations, cough, swallowing difficulties, nausea, vomiting, diarrhea, constipation, hematuria, dysuria, frequency, joint pain, joint swelling, rash, easy bruising, bleeding, headache, memory loss, dizzy, LOC, focal motor weakness, numbness, tingling, tremors, twitches, seizures, balance problems, gait problems, coordination difficulties, depression, fatigue, or insomnia. Positive Review of Systems: sensory loss PHYSICAL EXAM: Vitals: 09/29/22 1044 BP: (!) 180/98 Pulse: 71 Temp: 97 degrees F (36.1 degrees C) TempSrc: Infrared Weight: 97.6 kg (215 lb 1.6 oz) Height: 1.753 m (5' 9) Neurological examination: General: The patient appears nutritionally appropriate, well-groomed, and appears comfortable in no acute distress. Mental Status: The patient s mental status was normal including orientation, memory, attention span, concentration, and fund of knowledge. Language was intact. Cranial nerves: Visual alford full, pupils were equal and reactive to light, and extra-ocular motion was intact. Face motion and sensation were symmetric. Hearing was symmetric to bilateral finger rub. Palate was symmetric. Bilateral shoulder shrug was intact. Tongue was midline with normal movement. There was no dysarthria. Motor: Normal strength and tone in all four extremities. No pronator drift. Bilateral fast finger movements were symmetric. Sensation: Numbness to left pointer and thumb Coordination: Bilateral finger to nose was normal. There was no dysmetria. No dysdiadokinesia. Gait: Gait was narrow-based and steady. NIH STROKE SCALE 1a. Level of consciousness: 0 1b. Level of consciousness questions: 0 1c. Level of consciousness commands: 0 2. Best Gaze: 0 3. Visual: 0 4. Facial Palsy: 0 5a. Motor left arm: 0 5b. Motor right arm: 0 6a. Motor left le 6b. Motor right le 7. Limb Ataxia: 0 8. Sensory: 1 9. Best Language: 0 10. Dysarthria: 0 11. Extinction and Inattention: 0 TOTAL: 1 Modified [place] [facility]: 1 DATA: HgBA1c: Lab Results Component Value Date HGBA1C 10.0 (H) 07/22/2022 Lipid panel: Lab Results Component Value Date CHOLESTEROL 166 07/23/2022 TRIG 179 (H) 07/23/2022 HDL 40 07/23/2022 LDLCALC 90 07/23/2022 RADIOLOGY REVIEW: I have reviewed radiology image(s) and report(s) of: ECHOCARDIOGRAM TRANSESOPHAGEAL (CLARITZA) Left ventricle is normal in size and systolic function, visual EF 60-65%. Right ventricle is normal in size and systolic function. No LA, RA, or BEN thrombus visualized. Non-specific mitral valve thickening with trivial MR. No pericardial effusion is present. Grade 3 aortic atherosclerosis noted in the descending aorta. Left to right interatrial shunt suggestive of PFO noted by Bubble study and color Doppler during normal respiration. ASSESSMENT: The patient is a 51 y.o. male with a history of has a past medical history of Diabetes mellitus, Essential hypertension, benign, Hyperlipidemia, and Stroke. who presents to outpatient stroke clinic for follow-up after recent hospitalization. Antonia Whitney status post hospitalization on 07/22/22 for right basal ganglia ICH, bilateral punctate ischemic infarcts with presumed cryptogenic etiology. Started on atorvastatin 40mg and aspirin 81mg. Neurological examination with self reported left hand numbness localized to pointer finger and thumb. NIHS 1, mRS 1. CLARITZA with finding of PFO without significant valvular abnormalities. PFO could have possibly served as a nidus for a paradoxical embolism, however, coags negative, bilateral lower extremity duplex negative, no hx of DVT/PE, no hx of afib, no hx of IV drug use.Cancer screenings not up to date. No unintentional weight loss/gain. No unexplained bruising/bleeding. Discussed implications of PFO, incidence in normal population, association with stroke as well as the results of 3 studies that revealed a statistically significant benefit in patient's with selected echocardiographic features, though the absolute difference between the closure and medical treatment groups was modest, the overall stroke risk in both groups was low, and there was a slightly increased risk of atrial fibrillation associated with closure. Discussed RoPE Score: 4 (38% chance stroke due to PFO. 12% risk of 2 year recurrence of stroke/TIA. Not intended to directly predict benefit from closure, but a tool to differentiate between incidental and causative PFO findings in relation to stroke. Patient being followed by Dr. Turcios. Unsure at this time if he will pursue PFO closure. If patient decides to forego surgery, discussed potentially pursuing ILR to evaluate for underlying atrial fibrillation not seen on 30 day monitor. ILR handout provided to patient at this visit. Stroke etiology remains cryptogenic at this time. Not unreasonable to pursue PFO closure, although patient with multiple other uncontrolled risk factors (HTN, HLD, DM). Shared decision making took place weighing risks and benefits and overall quality of life. Discussed natural history, prognosis, and treatment of stroke as well as recovery issues. Plan to follow up with cardiology for finding of grade 3 aortic atherosclerosis noted in the descending aorta on CLARITZA. Plan to continue aggressive vascular risk factor modification and continue antiplatelet medication for secondary stroke prevention. Blood pressure elevated in clinic (180/98). Elevated when checked at home. Will continue to check and record blood pressures and discuss with PCP if blood pressures are consistently elevated >140s. PLAN: ? Anti-platelet medication: continue ASA 81mg daily ? Physical therapy/Speech therapy/Rehabilitation ? To reduce the risk of future ischemic stroke, the patient needs continued vascular risk factor modification. The following are the recommended guidelines*: ? LDL Goal: < 70 mg/dL ? Smoking Cessation ? Diabetes management: Goal <6.5 ? Blood pressure control: should achieve <140/80 mmHg. BP management should aim to achieve longterm control in a reasonable amount of time, taking into consideration the individual patient's requirements and characteristics. ? Weight Management: Goal for BMI is 18.5-24.9 kg/m2. ? Alcohol: No more than 2 drinks/day for men or 1 drink/day for non- women. ? Promote lifestyle modification: weight control, physical activity, moderation of alcohol intake, moderate sodium intake. ? Follow-up with Neurovascular 6 months ADDITIONAL RECOMMENDATIONS: Will defer any further evaluation that may be warranted to patients primary care physician. Thank you for allowing me to participate in the care of Antonia Kruger. If you have any questions or concerns please contact me. MIRA Yousif 09/29/2022 11:06 AM I spent about 40 minutes today with patient, reviewing history, and hospital records, MRs, CTs, labs, examining patient, discussing impressions, answering questions and charting. *References: (1) Jackson et al, Stroke 2011, 42:227-276; (2) Reddy et al, Stroke 2006, 2639-0944; (3) Kiersten et al, Stroke 2006; 37: 577-617; (4) Nikki Candelaria. TANIKA 2003, [id number]; (5) Maureen, et al, Circulation 2001, 103-163; (6) Llamas, et al, Stroke 1999, 1020-4877;(7) ATP III. See also http:///nhlbi.nih.gov/guidelines/c holesterol/index.htm documented in this encounter [facility] 09-29-2022 Instructions MIRA Yousif - 09/29/2022 11:00 AM EDT Follow up on cancer screenings. Please continue to check blood pressure daily and discuss with PCP if blood pressure is consistently >130/80. The following attachments cannot be sent through Care Everywhere.Heart Monitoring for a Stroke of Unknown Cause ([facility]) ([place])documented in this encounter [facility] 09-11-2022 History of Present illness Narrative Antonia Kruger is a 51 y.o. male who has been referred by Dr Mariano Cee for evaluation for transcatheter closure of patent foramen ovale (PFO) due to concern for PFO-associated stroke (i.e., cryptogenic stroke). Presented 06/2022 with left hand/leg numbness and left hand incoordination, patient was diagnosed with hemorrhagic stroke. Patient was evaluated by Neurology at [facility] and on discharge summary 07/25/22 stated cardioembolic stroke with bilateral ischemic infarcts and ICH; CLARITZA with PFO; referred for PFO closure evaluation. Residual deficit: numbness on left pointer finger Recurrent stroke: denies Patient does not experience angina, chest pain, dyspnea, LE edema, orthopnea, PND, lightheadedness, syncope or palpitations. Prior cardiac imaging stress test: denies Prior cardiac catheterization: denies Past Medical History: - stroke ischemic and intracranial hemorrhage - patent foramen ovale (PFO) - hypertension - hyperlipidemia - diabetes mellitus Past Social History: Social History Tobacco Use Smoking status: Never Smokeless tobacco: Never Vaping Use Vaping Use: Never used Substance Use Topics Alcohol use: Never Drug use: Never Past Family History: - Adopted at so does know family history. No children. No Known Allergies Current Outpatient Medications Medication Sig Dispense Refill Allopurinol 100 MG tablet Take 1 tablet by mouth daily. amLODIPine 5 MG tablet Take 1 tablet by mouth daily. 30 tablet 1 Aspirin Low Dose [address] tablet TAKE 1 TABLET BY MOUTH ONCE DAILY AT SUPPER TIME Atorvastatin 40 MG tablet Take 1 tablet by mouth at bedtime. 30 tablet 1 carveDILOL 25 MG tablet Take 1 tablet by mouth every 12 hours. 60 tablet 1 gliMEPIride 2 MG tablet Take 1 tablet by mouth daily. Levemir FlexTouch 100 UNIT/ML Solution Pen-injector injection INJECT 10 UNITS SUBCUTANEOUSLY ONCE DAILY Lisinopril 40 MG tablet Take 1 tablet by mouth daily. 30 tablet 1 Melatonin 3 MG tablet TAKE 1 TABLET BY MOUTH NIGHTLY metFORMIN 500 MG tablet Take 2 tablets by mouth 2 times daily. Dulaglutide (Trulicity) 1.5 MG/0.5ML Solution Pen-injector injection Inject under the skin. (Patient not taking: Reported on 09/11/2022) hydrALAZINE 10 MG tablet TAKE 1 TABLET BY MOUTH EVERY 8 HOURS NEEDED TO KEEP BLOOD PRESSURE BELOW 140/90 (Patient not taking: Reported on 09/11/2022) No current facility-administered medications for this visit. Review of Systems (ROS): Full ROS reviewed and negative unless otherwise stated. Physical Exam: Blood pressure 122/84, pulse 64, height 1.753 m (5' 9), weight 105.2 kg (232 lb). Gen - well nourished; alert and orientated x 3, mood normal Head & Neck- normocephalic; no JVD Lungs- clear to auscultation bilateral without rales, rhonchi, wheezing; good air movement bilateral; no use of accessory muscles CV- RRR without murmurs, gallops, rubs Abd- non-tender; non-distended; soft; +BS; no rebound/guarding Neuro- no gross motor deficits, gait normal Extr- no edema bilateral; warm distal extremities Skin- no facial rashes Lab Results Component Value Date WBC 8.99 07/25/2022 Lab Results Component Value Date SODIUM 136 07/25/2022 POTASSIUM 3.6 07/25/2022 CHLORIDE 104 07/25/2022 CO2 22 07/25/2022 BUN 16 07/25/2022 CREATSERUM 0.58 (L) 07/25/2022 Lab Results Component Value Date ALT 19 07/22/2022 AST 13 07/22/2022 Event Monitor: 08/05/22 - 09/03/22 - pending LE Venous Duplex: 07/25/22 - Right Lower Limb: No evidence of acute deep venous thrombosis in the lower extremity. - Left Lower Limb: No evidence of acute deep venous thrombosis in the lower extremity. CT Head: 07/22/22 No significant interval change in the appearance of the right basal ganglia parenchymal hematoma when accounting for differences in head positioning. MRI Brain: 07/23/22 - Stable size of acute parenchymal hemorrhage in the right basal ganglia. No severe intracranial mass effect. - Several tiny foci of acute nonhemorrhagic infarct in both hemispheres as detailed above. - Underlying chronic ischemic changes. Transesophageal Echocardiogram: 07/24/22 Left ventricle is normal in size and systolic function, visual EF 60-65%. Right ventricle is normal in size and systolic function. No LA, RA, or BEN thrombus visualized. Non-specific mitral valve thickening with trivial MR. No pericardial effusion is present. Grade 3 aortic atherosclerosis noted in the descending aorta. Left to right interatrial shunt suggestive of PFO noted by Bubble study and color Doppler during normal respiration. - Aorta: No dilation to extent seen Assessment and Plan: Antonia Kruger is a 51 y.o. male who has been referred by Dr Mariano Cee for evaluation for transcatheter closure of patent foramen ovale (PFO) due to concern for PFO-associated stroke (i.e., cryptogenic stroke). 1. Patent foramen ovale (PFO) and concern for PFO-associated stroke (i.e., cryptogenic stroke): Transesophageal echocardiogram demonstrated a PFO. Lower extremity Duplex without evidence of deep venous thrombosis. Event recorder to evaluate for atrial fibrillation/flutter is pending, thus patient instructed to call our office once finalized, as ordered from another provider [facility]. The patient was evaluated by Neurology and concerning for cardioembolic stroke, thus referred for PFO closure evaluation. I discussed with the patient at length the randomized clinical trial data on PFO transcatheter closure in patient's with cryptogenic stroke, and the risks/benefits in PFO transcatheter closure. I did discuss that PFO transcatheter closure decreases the recurrence of stroke greater as compared to medical therapy alone, however, in those who had a cryptogenic stroke where an alternative etiology of stroke could not be determined. This was discussed in depth with the patient. The patient states will like to think a bit more about transcatheter closure of PFO and will notify our office if he would like to proceed, pending event monitor results. 2. Stroke: see above. Patient is scheduled to follow-up in Neurology with Laurie Tellez CNP. Taking aspirin and atorvastatin. 3. Hypertension: Taking Coreg 25 mg daily, Lisinopril 40 mg daily, Amlodipine 5 mg daily and Hydralazine followed by primary care physician (PCP) including labs. 4. Hyperlipidemia: Taking Atorvastatin 40 mg daily followed by PCP. documented in this encounter [facility] 07-25-2022 Note Formatting of this n ote might be different from the original. Stroke patient education has been reviewed and all required elements are complete and personalized. Care plan documentation complete and patient adequate for discharge. Next dose medication details have been added to the AVS as appropriate. [facility] 07-25-2022 Miscellaneous Notes Stroke patient education has been reviewed and all required elements are complete and personalized. Care plan documentation complete and patient adequate for discharge. Next dose medication details have been added to the AVS as appropriate. Problem: Patient Care Overview Goal: Plan of Care Review Outcome: Met This Shift Goal: Individualization & Mutuality Outcome: Met This Shift Goal: Discharge Needs Assessment Outcome: Met This Shift Goal: Interdisciplinary Rounds/Family Conf Outcome: Met This Shift Problem: Stroke (Hemorrhagic) (Adult) Goal: Signs and Symptoms of Listed Potential Problems Will be Absent, Minimized or Managed (Stroke) Description: Signs and symptoms of listed potential problems will be absent, minimized or managed by discharge/transition of care (reference Stroke (Hemorrhagic) (Adult) CPG). Outcome: Adequate for Discharge Problem: PT - Mobility Goal: Ambulation Description: Pt will ambulate 300 feet with out an assistive device with independence to improve ability to navigate home environment. Outcome: Adequate for Discharge Goal: Stairs Description: Pt will ascend/descend 13 stairs with railings with modified independence with out an assistive device to improve ability to perform functional mobility necessary in recommended discharge environment. Outcome: Adequate for Discharge Problem: PT - Transfers Goal: Sit <-> Stand Description: Pt will perform sit to/from stand transfers with modified independence with out an assistive device in order to improve functional mobility and safety. Outcome: Adequate for Discharge Goal: Strength/ROM Description: Pt will perform 2 sets of 12 repetitions of left upper lower extremity exercises with independence in order to improve strength, maintain ROM, necessary for functional mobility. Outcome: Adequate for Discharge Goal: Other Description: Pt will meet the MCID on the FGA to reduce fall risk at home Outcome: Adequate for Discharge Problem: OT - Balance Goal: Balance - Standing Description: Pt will perform 15-30 minutes of functional dynamic reach ADL task in standing with modified independence and balance level of supervision to promote safety and improved balance required for self-care activities. Outcome: Adequate for Discharge Problem: OT - Endurance Goal: Endurance Functional Task Standing Description: Pt will engage in standing functional task for 30 minutes with modified independence to improve activity tolerance necessary for safe ADL completion at recommended discharge destination. Outcome: Adequate for Discharge Problem: OT - Strength/ROM Goal: Neuro Re-education Description: Pt will participate in neuro re-ed of (LUE/hand) to improve fine motor/dexterity skills for improved use in ADLs. Outcome: Adequate for Discharge Problem: OT - Balance Goal: Balance - Standing Description: Pt will perform 15-30 minutes of functional dynamic reach ADL task in standing with modified independence and balance level of supervision to promote safety and improved balance required for self-care activities. Outcome: Progressing Toward Goal Problem: OT - Endurance Goal: Endurance Functional Task Standing Description: Pt will engage in standing functional task for 30 minutes with modified independence to improve activity tolerance necessary for safe ADL completion at recommended discharge destination. Outcome: Progressing Toward Goal Problem: OT - Strength/ROM Goal: Neuro Re-education Description: Pt will participate in neuro re-ed of (LUE/hand) to improve fine motor/dexterity skills for improved use in ADLs. Outcome: Progressing Toward Goal Problem: Patient Care Overview Goal: Plan of Care Review Outcome: Progressing Toward Goal Goal: Individualization & Mutuality Outcome: Progressing Toward Goal Goal: Discharge Needs Assessment Outcome: Progressing Toward Goal Goal: Interdisciplinary Rounds/Family Conf Outcome: Progressing Toward Goal Problem: Stroke (Hemorrhagic) (Adult) Goal: Signs and Symptoms of Listed Potential Problems Will be Absent, Minimized or Managed (Stroke) Description: Signs and symptoms of listed potential problems will be absent, minimized or managed by discharge/transition of care (reference Stroke (Hemorrhagic) (Adult) CPG). Outcome: Progressing Toward Goal Problem: Patient Care Overview Goal: Plan of Care Review Outcome: Met This Shift Goal: Individualization & Mutuality Outcome: Met This Shift Goal: Discharge Needs Assessment Outcome: Progressing Toward Goal Goal: Interdisciplinary Rounds/Family Conf Outcome: Met This Shift Problem: Stroke (Hemorrhagic) (Adult) Goal: Signs and Symptoms of Listed Potential Problems Will be Absent, Minimized or Managed (Stroke) Description: Signs and symptoms of listed potential problems will be absent, minimized or managed by discharge/transition of care (reference Stroke (Hemorrhagic) (Adult) CPG). Outcome: Met This Shift Patient taken to [facility]. Alert and oriented3. Able to walk to bathroom and then to hallway with standby assistance. Kylee Fuller RN Problem: OT - Balance Goal: Balance - Standing Description: Pt will perform 15-30 minutes of functional dynamic reach ADL task in standing with modified independence and balance level of supervision to promote safety and improved balance required for self-care activities. Outcome: Ongoing Problem: OT - Endurance Goal: Endurance Functional Task Standing Description: Pt will engage in standing functional task for 30 minutes with modified independence to improve activity tolerance necessary for safe ADL completion at recommended discharge destination. Outcome: Ongoing Problem: OT - Strength/ROM Goal: Neuro Re-education Description: Pt will participate in neuro re-ed of (LUE/hand) to improve fine motor/dexterity skills for improved use in ADLs. Outcome: Ongoing Problem: PT - Transfers Goal: Sit <-> Stand Description: Pt will perform sit to/from stand transfers with modified independence with out an assistive device in order to improve functional mobility and safety. Outcome: Ongoing Goal: Strength/ROM Description: Pt will perform 2 sets of 12 repetitions of left upper lower extremity exercises with independence in order to improve strength, maintain ROM, necessary for functional mobility. Outcome: Ongoing Goal: Other Description: Pt will meet the MCID on the FGA to reduce fall risk at home Outcome: Ongoing Problem: PT - Mobility Goal: Ambulation Description: Pt will ambulate 300 feet with out an assistive device with independence to improve ability to navigate home environment. Outcome: Ongoing Goal: Stairs Description: Pt will ascend/descend 13 stairs with railings with modified independence with out an assistive device to improve ability to perform functional mobility necessary in recommended discharge environment. Outcome: Ongoing Images from the original note were not included. I certify that this patient requires inpatient services at this time. I anticipate the expected length of stay will include at least two midnights. Inpatient services are due to the following medical concerns stroke. Plans for post hospitalization care will be discharge to to be decided. CIELO Albarado Neurology PGY-2 Pager: [phone] 07/23/22 7:10 AM documented in this encounter [facility] 07-25-2022 Note Formatting of this n ote might be different from the original. Problem: Patient Care Overview Goal: Plan of Care Review Outcome: Met This Shift Goal: Individualization & Mutuality Outcome: Met This Shift Goal: Discharge Needs Assessment Outcome: Met This Shift Goal: Interdisciplinary Rounds/Family Conf Outcome: Met This Shift Problem: Stroke (Hemorrhagic) (Adult) Goal: Signs and Symptoms of Listed Potential Problems Will be Absent, Minimized or Managed (Stroke) Description: Signs and symptoms of listed potential problems will be absent, minimized or managed by discharge/transition of care (reference Stroke (Hemorrhagic) (Adult) CPG). Outcome: Adequate for Discharge Problem: PT - Mobility Goal: Ambulation Description: Pt will ambulate 300 feet with out an assistive device with independence to improve ability to navigate home environment. Outcome: Adequate for Discharge Goal: Stairs Description: Pt will ascend/descend 13 stairs with railings with modified independence with out an assistive device to improve ability to perform functional mobility necessary in recommended discharge environment. Outcome: Adequate for Discharge Problem: PT - Transfers Goal: Sit <-> Stand Description: Pt will perform sit to/from stand transfers with modified independence with out an assistive device in order to improve functional mobility and safety. Outcome: Adequate for Discharge Goal: Strength/ROM Description: Pt will perform 2 sets of 12 repetitions of left upper lower extremity exercises with independence in order to improve strength, maintain ROM, necessary for functional mobility. Outcome: Adequate for Discharge Goal: Other Description: Pt will meet the MCID on the FGA to reduce fall risk at home Outcome: Adequate for Discharge Problem: OT - Balance Goal: Balance - Standing Description: Pt will perform 15-30 minutes of functional dynamic reach ADL task in standing with modified independence and balance level of supervision to promote safety and improved balance required for self-care activities. Outcome: Adequate for Discharge Problem: OT - Endurance Goal: Endurance Functional Task Standing Description: Pt will engage in standing functional task for 30 minutes with modified independence to improve activity tolerance necessary for safe ADL completion at recommended discharge destination. Outcome: Adequate for Discharge Problem: OT - Strength/ROM Goal: Neuro Re-education Description: Pt will participate in neuro re-ed of (LUE/hand) to improve fine motor/dexterity skills for improved use in ADLs. Outcome: Adequate for Discharge [facility] 07-25-2022 History of Present illness Narrative Progression of Care Note Expected Discharge Date: 07/25/2022 Medical Milestones Remaining: BP Management Assessment and Discharge Plan as of 07/25/2022 12:19 PM Patient Choice for Post-Acute Providers Anticipated discharge disposition: Home Anticipated Services at Discharge: Physical Therapy, Occupational Therapy, Outpatient follow up Explanation of Barriers: Medical Stability Readmission Risk Score Risk of Readmission: 5.9 Category Reference: High:16-100 Mod-High:10-16 Mod-Low: 5-10 Low: 0-5 Patient potential to discharge home today, CM added follow up appointments to patient's AVS. JUDIT Munoz, NEVILLE Diabetes Nurse Acute Occupational Therapy Treatment Prior to Admission AM-PAC Score: PRIOR LEVEL AM-PAC Activity Raw Score: 24 PRIOR LEVEL AM-PAC Mobility Raw Score: 24 Current AM-PAC score(s): CURRENT AM-PAC Activity Raw Score: 19 Based on the above AM-PAC score(s), and OT clinical judgment, discharge destination recommendation is: Home with Outpatient Rehab Services Barriers to discharge home: Lack of appropriate DME, Patient needs assistance with IADLs (see note below), Patient needs assistance with ADLs, Patient needs assistance with medication management Mobility equipment available at home: none used ADL equipment available at home: none Equipment recommendations for discharge: to be determined Current therapy frequency recommendation(s) in acute: 5 times a week Precautions and Weightbearing Status: Telemetry Patient Safety Communication Prior to Visit: Nursing Subjective: Patient and spouse agreeable to session; reports mobility in hallway was more tiring than he expected. Pain: General Pain Documentation (Adult, OB, Peds) Presence of Pain: denies pain/discomfort Objective/Observation: Vitals/Vitals Responses to Treatment: vital signs stable O2 Device: room air Cognition Overall Cognitive Status: Within Functional Limits Arousal/Alertness: Appropriate responses to stimuli Orientation Level: Oriented X4 Following Commands: Follows all commands and directions without difficulty ADL Assessment/Intervention: Grooming Assistance: Supervision Grooming Location: standing at sink Grooming Deficit: Activity tolerance, Balance, Manipulation of items, Follows safety/precautions Grooming Skilled Rationale (Verbal/Tactile/Visual/Demonstrati on): Cues for increased safety, Setup, Technique of activity, Facilitate postural control, Facilitate positioning Grooming Intervention/Details: Facilitated in hand hygiene, brushing hair, brushing teeth and washing face including manipulation of items/opening and closing containers to promote FMC/strengthening. LE Dressing Assistance: Stand by LE Dressing Location: edge of bed, standing LE Dressing Deficit: Increased time to complete, Activity tolerance, Problem solving, Follows safety/precautions, Generalized weakness LE Dressing Skilled Rationale (Verbal/Tactile/Visual/Demonstrati on): Facilitate positioning, Facilitate postural control, Technique of activity, Cues for increased safety, Setup LE Dressing Intervention/Details: Increased time/effort to complete doffing/donning underwear and pants, particularly with threading LEs into long pants and managing over hips. Pt cued to adjust socks for improved safety. Toilet Assistance: Stand by Toileting Location: toilet Toileting Deficit: Increased time to complete, Activity tolerance, Generalized weakness, Balance, Follows safety/precautions Toilet Skilled Rationale (Verbal/Tactile/Visual/Demonstrati on): Technique of activity, Cues for increased safety, Setup Extremity Assessments: See OT Evaluation flowsheet for Extremity Measurement updates. Balance: Sitting Balance Static Sitting-Level of Assistance: Independent Dynamic Sitting-Level of Assistance: Independent Standing Balance Static Standing-Level of Assistance: Independent Dynamic Standing-Level of Assistance: Stand-by assist Standing-Balance Support: Gait belt Skilled Rationale: Verbal cues, Technique of activity, Full extension to upright positioning/posture, Cues for increased safety Standing Balance Skilled Intervention/Details: Challenged dynamic balance with LE dressing, toileting/morgan hygiene, retrieving items from floor, and functional transfers/mobility. No overt LOB. Transfer Assessment/Intervention: Sit to Stand Transfer [place] Level: Sit->Stand: supervision Assistive Device: Sit->Stand: gait belt Skilled Rationale: Verbal cues, Cues for increased safety Skilled Intervention/Details: Sit->Stand: x2 from EOB Stand to Sit Transfer [place] Level: Stand->Sit: supervision Assistive Device: Stand->Sit: gait belt Skilled Rationale: Verbal cues, Cues for increased safety Toilet Transfer [place] Level: Toilet: stand-by assist Assistive Device: Toilet: gait belt, grab bars Skilled Rationale: Verbal cues, Cues for increased safety Skilled Intervention/Details: Toilet: x3 Functional Mobility: Functional Mobility [place] Level: Functional Mobility/Gait: stand-by assist Assistive Device: Functional Mobility/Gait: gait belt Functional Mobility Distance: Distance needed for common household mobility Ambulation Distance (Feet): 300 Functional Mobility Deficits: Activity tolerance, Balance, Follow safety/precautions, Slowed gait speed Functional Mobility Skilled Rationale: Verbal cues, Visual scanning and environmental awareness, Cues for increased safety Skilled Intervention/Details - Functional Mobility/Gait: Pt reports RPE 5/10. Facilitated in wayfinding and environmental awareness, identifying objects/rooms in hallway as instructed. Outcome Score(s): CURRENT AM-PAC Daily Activity Inpatient Short Form Putting on/Taking Off Lower Body Clothin - A Little Assistance Bathin - A Little Assistance Toiletin - A Little Assistance Putting on/Taking Off Upper Body Clothin - A Little Assistance Groomin - A Little Assistance Eatin - No Assistance CURRENT [facility] Activity Raw Score: 19 CURRENT [facility] Activity Functional Limitation/Modifier: 42.80% Currently Impaired in Daily Activity - CK Interventions: Patient educated on activity promotion, safety and active participation with ADLs/funcitonal mobility to improve progress and prevent further deconditioning. I.e. encouraged for sitting in chair for meals, up to toilet/bathroom and walking with staff, actively participating in self-care tasks at sink and activities to promote use of LUE and BUEs for improved strength/coordination. Pt and spouse verbalized understanding. Assessment & Plan: Patient making progress toward goals with improving tolerance and balance during ADLs and functional mobility. Patient will continue to benefit from skilled OT services to address fine motor deficits, strength, balance, activity tolerance, functional transfers/mobility and ADLs for improved safety/independence with occupational performance. Patient Instruction/Education this session: Patient Instruction: OT role, plan of care, activity promotion Plan for next session: Dynamic standing balance/endurance with ADLs Acute OT Goals Plan of Care by Khalida Suazo OT at 07/25/2022 9:51 AM Version 1 of 1 Problem: OT - Balance Goal: Balance - Standing Description: Pt will perform 15-30 minutes of functional dynamic reach ADL task in standing with modified independence and balance level of supervision to promote safety and improved balance required for self-care activities. Outcome: Progressing Toward Goal Problem: OT - Endurance Goal: Endurance Functional Task Standing Description: Pt will engage in standing functional task for 30 minutes with modified independence to improve activity tolerance necessary for safe ADL completion at recommended discharge destination. Outcome: Progressing Toward Goal Problem: OT - Strength/ROM Goal: Neuro Re-education Description: Pt will participate in neuro re-ed of (LUE/hand) to improve fine motor/dexterity skills for improved use in ADLs. Outcome: Progressing Toward Goal OT treatment consisted of ADL retraining, balance training, bed mobility training, energy conservation/endurance training, fine motor coordination training, neuromuscular re-education and transfer training to work and progress towards above goal(s). Treating Therapist: Khalida Suazo OT Additional Details: Co-evaluation/co-treatment performed?: No simultaneous skilled care performed I used gloves and facemask in today's patient interaction. Patient location at end of session: chair Alarms on at end of session: none and none on at start of session, spouse present Needs in reach. Time In: 856 Time Out: 950 Total Visit Time: 54 minutes Total Treatment Time (skilled, billable minutes): 40 minutes Upon discontinuation of Acute Care Occupational Therapy Services or patient discharge from the hospital this note represents the current Occupational Therapy Discharge Summary. Acute Care SONOGRAPHY TECHNOLOGIST Speech/Language/Cognitive Evaluation Best mode of Communication: spoken language (regular speech) Discharge Recommendations: Based on the below outcome measures/assessment score(s) and SONOGRAPHY TECHNOLOGIST clinical judgment, discharge destination recommendation is: Home Acute SONOGRAPHY TECHNOLOGIST Outcomes Tracking Communicate basic wants and needs?: yes Demo insight/appreciation of deficits?: yes Complete basic problem solving?: yes Current therapy frequency recommendation in acute: Speech/Lang/Cog Therapy Frequency: no therapy warranted Clinical Impression: Antonia Kruger presents with functional cognitive/communication skills, characterized by intact orientation, insight into deficits, problem solving, and short-term memory, s/p R basal ganglia ICH. Pt with slightly diminished speech intelligibility r/t increased rate and imprecise articulation; however, Pt and reporting this to be c/w baseline and not acute. Pt presenting at his baseline level for speech/language/cognition. No SONOGRAPHY TECHNOLOGIST f/u warranted. Patient Instruction/Education this session: SONOGRAPHY TECHNOLOGIST role, results of assessment. Plan for next session: n/a Subjective: Pt sitting in chair awake; at bedside. Pt denies any acute change in speech, communication, or cognitive skills. Pain: General Pain Documentation (Adult, OB, Peds) Presence of Pain: denies pain/discomfort DVPRS (Defense and Veterans Pain Rating Scale) DVPRS: Rest: 0- no pain DVPRS: Activity: 0- no pain Lines/Drains/Tubes: Lines/Tubes/Drains (Rehab Status): Telemetry (IV) Patient History Comments: Antonia Kruger is a 51 y.o. male with PMH significant for DM, Obesity, HTN, HLD who presents with 2 days of left hand/leg numbness, and left hand dis-cordination and numbness in the fingers. Initial symtpoms began Thursday night (07/20/22). Patient was evaluated at the [facility] and was reportedly hypertensive with BP 196-218/115-179. Head CT demonstrated a Right BG ICH with no MLS. Case was discussed with Dr. Berrios over the phone and Antonia Kruger was transferred to [facility] for further evaluation and management. Relevant imaging: HCT 07/22: IMPRESSION: No significant interval change in the appearance of the right basal ganglia parenchymal hematoma when accounting for differences in head positioning. 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 Pt demonstrated fluent communication of basic wants/needs. RECEPTIVE LANGUAGE: intact as evidenced by reciprocal participation in conversation with appropriate responses, intact command following and accurate Y/N responses. READING: Intact Task: Letter Identification Intact Single Words Aloud Intact Single Word Comprehension Intact Sentence Comprehension Intact Functional Environmental Reading Intact WRITING: not assessed this date; however, not suspected to be impaired. SOCIAL INTERACTION/PRAGMATICS: Intact Task: Initiates Conversation Intact Takes Turns in Communication Intact Maintains Eye Contact Intact Maintains Topic Intact Shifts Topics Appropriately Intact Affect Intact Responds Appropriately to Questions Intact COGNITION: Within Functional Limits Task: Arousal/Alertness Appropriate responses to stimuli Orientation Level Oriented X4 Safety Judgment Unable to assess Awareness of Errors Unable to assess Deficits Fully aware of deficits Attention Span Appears intact Memory Appears intact Problem Solving Able to problem solve independently Cognition Comments CRANIAL NERVE EXAMINATION: Cranial Nerve Exam CN V (Trigeminal) strong equal bilateral strength of masseter and temporal muscles CN VII (Facial) strong bilateral movement of upper and lower face CN IX (glossopharyngeal) voice quality strong and clear CN X (Vagus) soft palate and pharynx rise symmetrically when patient says 'ahhh' CN XI (Accessory) strong and equal rotation of head CN XII (Hypoglossal) clearly articulated speech MOTOR SPEECH TASKS: Intact Task: Imitate Motor Movements Intact Imitate Sounds and Words Intact Rapid Alternating Movements Intact Speech Intelligibility Functional (increased rate and slightly monotone pitch, c/w baseline per Pt and ) Fluency Intact Saliva Management Intact VOCAL PARAMETERS: Intact Task: Breath Support Intact Coordination of Respiration and Phonation Coordination of respiration and phonation: Intact Duration of Phonation Intact Pitch Control Functional Loudness Intact Vocal Quality WDL Subjective Voice Evaluation Grade of dysphonia (G): 0 Roughness (R): 0 Breathiness (B): 0 Asthenia (A): 0 Strain (S): 0 SONOGRAPHY TECHNOLOGIST Outcomes: The Orientation Log (O-Log) is designed to be a quick quantitative measure of orientational status for use at bedside with rehabilitation inpatients. Place, time, and situational (Etiology/Event + Pathology/Deficits) domains are assessed. Patient responses are scored according to the following criteria: 3 = correct spontaneously or upon first free recall attempt; 2 = correct upon logical cueing (e.g., That was yesterday, so today must be ); 1 = correct upon multiple choice or phonemic cuing; and 0 = incorrect despite cueing, inappropriate response, or unable to respond. Patient scored Total Score: 3030 this date. The Cognitive Log (Cog-Log) is designed to be a quick quantitative measure of cognition for use at bedside with rehabilitation patients. It is intended for individuals who have achieved consistent accurate orientation, such as measured by the Orientation Log (O-Log). The Cog-Log can be used to document cognitive progress on a daily basis, in the areas of immediate memory, reasoning, thought organization and attention. All items are scored from 0 to 3 for a total possible score of 30, which can be graphed for quick reference. Patient scored Total Score: this date. Acute SONOGRAPHY TECHNOLOGIST Goals Notes from 07/22/2022 11:58 PM through 07/23/2022 11:58 AM No notes of this type exist for this encounter. 1- Pt will demonstrate understanding of education regarding SONOGRAPHY TECHNOLOGIST role in plan of care, results/recommendations of evaluation by end of session. GOAL MET. I used gloves and facemask in today's patient interaction. Speech Language Pathologist: IRIS Mathew Time In: 1025 Time Out: 1040 Total Visit Time: 15 minutes Total Treatment Time (skilled, billable minutes): 15 minutes Patient location at end of session: chair Alarms on at end of session: none Needs in reach. Yes Betzaida Camejo M.A., [facility]-SONOGRAPHY TECHNOLOGIST License: [id number] Email: [email or web address] Available via [employer] Upon discontinuation of Acute Care Speech Therapy Services or patient discharge from the hospital this note represents the current Speech Therapy Discharge Summary Received consult for swallow evaluation. However, patient passed [place] Swallow Screening by nursing. Swallow eval by SONOGRAPHY TECHNOLOGIST will not be completed at this time unless this service notified of change in status or re-consult for swallow eval placed. SONOGRAPHY TECHNOLOGIST to proceed with speech/language/cognitive evaluation per order. Thank you. No charge Betzaida Camejo M.A., [facility]-SONOGRAPHY TECHNOLOGIST License: [id number] Email: [email or web address] Available via [employer] [place] Department of Pharmacy Admission Medication Reconciliation Note Patient: Antonia Kruger Room/Bed: [facility]8/A The patient's allergies have been reviewed with Patient, and I have reviewed the patient's home medication list with the following sources [facility] records and Patient Recall with prompting. I have also reviewed this list with the medical team. All changes to the home medication list have been updated in [facility]. Updated CABLE TOOL DRILLER Med List: Prior to Admission Medications Prescriptions Aspirin Low Dose [address] tablet Sig: TAKE 1 TABLET BY MOUTH ONCE DAILY AT SUPPER TIME Dulaglutide (Trulicity) 1.5 MG/0.5ML Solution Pen-injector injection Sig: Inject under the skin. Metoprolol 25 MG tab regular release Sig: Take 1 tablet by mouth 2 times daily. Pravastatin 40 MG tablet Sig: Take 1 tablet by mouth daily. Ramipril 5 MG capsule Sig: TAKE 1 CAPSULE BY MOUTH ONCE DAILY IN THE EVENING gliMEPIride 2 MG tablet Sig: Take 1 tablet by mouth daily. hydrALAZINE 10 MG tablet Sig: TAKE 1 TABLET BY MOUTH EVERY 8 HOURS NEEDED TO KEEP BLOOD PRESSURE BELOW 140/90 metFORMIN 500 MG tablet Sig: Take 2 tablets by mouth 2 times daily. Facility-Administered Medications: None Please feel free to contact me with any further questions. Name: Bhavna Reyes RPH Phone #: [phone] Date/Time: 07/23/2022 11:27 AM Time Spent: 15 minutes Acute Occupational Therapy Evaluation Prior to Admission AM-PAC Score: PRIOR LEVEL AM-PAC Activity Raw Score: 24 Current AM-PAC score(s): CURRENT AM-PAC Activity Raw Score: 19 Based on the above AM-PAC score(s) and OT clinical judgment, discharge destination recommendation is: Home with Outpatient Rehab Services Barriers to discharge home: Lack of appropriate DME, Patient needs assistance with IADLs (see note below), Patient needs assistance with ADLs, Patient needs assistance with medication management Mobility equipment available at home: none used ADL equipment available at home: none Equipment recommendations for discharge: to be determined Current therapy frequency recommendation(s) in acute: 5 times a week Precautions and Weightbearing Status: Telemetry (IV) Patient Safety Communication Prior to Visit: Nursing Subjective: Pt sitting up in bed on arrival, agreeable to OT evaluation. Pain: General Pain Documentation (Adult, OB, Peds) Presence of Pain: denies pain/discomfort DVPRS (Defense and Veterans Pain Rating Scale) DVPRS: Rest: 0- no pain DVPRS: Activity: 0- no pain Home Setting Residence: House (2-story with basement) Lives With: spouse First floor setup: half bath Second floor setup: bedroom, tub shower Number of stairs to enter home: 4 Number of stairs in home: 13 Stair Railings at Home: entry - with rail, interior - with rail Mobility Equipment Available: none used ADL Equipment Available: none Home Environment Details: 2 story home with laundry in basement Previous Level of Function Prior level ADL Overview: Independent with all ADLs Dominant Hand: Right Bed Mobility/Transfers: independent Ambulation Skills: independent Assistive Device: none used Level of Ambulation: community Prior Level of Function Details: Pt works in a [email or web address], denies any falls within last 6 months IADL History IADLs: independent Primary Language: [place] Management Skills: independent Medication Management: needs assist Homemaking Responsibilities: Yes Meal Prep Responsibility: Primary Laundry Responsibility: Secondary Cleaning Responsibility: Primary Bill Paying/Finance Responsibility: Primary Shopping Responsibility: Primary Business Center Attendant Responsibility: No Homemaking Comments: Pt splits homemaking responsibilities evenly with spouse 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 Objective/Observation: Vitals/Vitals Responses to Treatment: VSS BP at EOS with nursing present: 132/69 O2 Device: room air Vision Screen Currently wearing corrective lenses: No Speech Speech: no gross deficits noted Hearing Hearing: no gross deficits noted Cognition Overall Cognitive Status: Within Functional Limits Arousal/Alertness: Appropriate responses to stimuli Orientation Level: Oriented X4 Following Commands: Follows all commands and directions without difficulty Safety Judgment: Decreased awareness of need for safety Awareness of Errors: Good awareness of errors made Deficits: Fully aware of deficits Attention Span: Appears intact Memory: Appears intact Problem Solving: Assistance required to implement solutions Cognition Comments: some safety inawareness ADLs: ADL Anticipated Performance (ADLs not directly observed this session): Eating, Grooming, Bathing, UE Dressing, Toileting Eating Assistance: Independent Grooming Assistance: Stand by Bathing Assistance: Minimal UE Dressing Assistance: Set up supervision LE Dressing Assistance: Set up supervision LE Dressing Location: bed level LE Dressing Skilled Rationale (Verbal/Tactile/Visual/Demonstrati on): Setup, Supervision Toilet Assistance: Stand by Extremity Assessments: Hand Mainframe Systems Engineer Strength Hand Mainframe Systems Engineer Strength Interpretation: Left WNL, Right WNL RUE Assessment RUE Assessment: Within Functional Limits LUE Assessment LUE Assessment: Within Functional Limits Left UE Assessment Details: grossly 4+/5 MMT Balance: Sitting Balance Static Sitting-Level of Assistance: Independent Dynamic Sitting-Level of Assistance: Independent Standing Balance Static Standing-Level of Assistance: Independent Dynamic Standing-Level of Assistance: Stand-by assist Standing-Balance Support: Gait belt Skilled Rationale: Positioning, Verbal cues, Technique of activity, Cues for increased safety Standing Balance Skilled Intervention/Details: verbal cueing for safety with mildly delayed LLE. Neuro: Sensation Overall Sensation: Impaired Sensation Comments: reports numbness/tingling in L hand 2nd and 3rd digits Proprioception Proprioception: shows deficit Proprioception - narrative: LUE Gross Coordination Gross Coordination: LUE intact, RUE intact Fine Motor Coordination Additional Documentation: Yes Fine Motor Coordination Left Hand, Finger To Nose: mild impairment Right Hand, Finger To Nose: normal performance Left Hand Thumb/Finger Opposition Skills: mild impairment Right Hand Thumb/Finger Opposition Skills: normal performance Left Hand, Manipulation of Objects: mild impairment Right Hand, Manipulation of Objects: normal performance Skin and Edema: Skin Integrity Skin Integrity Description: WFL Edema Edema: none noted Mobility Assessment: Supine to Sit Mobility [place] Level: Supine->Sit: modified independence Bed Features/Set-up: Supine->Sit: Head of bed elevated Transfer Assessment: Sit to Stand Transfer [place] Level: Sit->Stand: supervision Physical Assist: Sit->Stand: other (see comments) (1 person) Assistive Device: Sit->Stand: gait belt Skilled Rationale: Verbal cues, Technique of activity Skilled Intervention/Details: Sit->Stand: verbal cueing for technique Stand to Sit Transfer [place] Level: Stand->Sit: supervision Physical Assist: Stand->Sit: other (see comments) (1 person) Assistive Device: Stand->Sit: gait belt Skilled Rationale: Verbal cues, Technique of activity Skilled Intervention/Details: Stand->Sit: verbal cueing for technique Functional Mobility: Functional Mobility [place] Level: Functional Mobility/Gait: stand-by assist Physical Assist: Functional Mobility/Gait: 1 person + 1 person to manage equipment Assistive Device: Functional Mobility/Gait: gait belt Functional Mobility Distance: Distance needed for common household mobility Ambulation Distance (Feet): 150 Functional Mobility Deficits: Activity tolerance, Balance, Slowed gait speed, Decreased step length, Generalized weakness Functional Mobility Skilled Rationale: Cues for increased safety, Verbal cues, Technique of activity Skilled Intervention/Details - Functional Mobility/Gait: verbal cueing for technique with LLE and wayfinding in hallway Outcome Score(s): Fugl-Garsia Assessment of Physical Performance Fugl-Garsia Selection of Upper Extremity: Left Left Flexor synergy (out of 12): 12 Left Extensor synergy (out of 6): 6 Left Volitional movement mixing synergies (out of 6) : 6 Left Volitional Movement with little or no synergy (out of 6): 6 Left Wrist (out of 10): 10 Left Hand (out of 14): 13 Left Coordination/Speed (out of 6): 3 LUE Fugl-Garsia Score (out of 60): 56 CURRENT AM-PAC Daily Activity Inpatient Short Form Putting on/Taking Off Lower Body Clothin - A Little Assistance Bathin - A Little Assistance Toiletin - A Little Assistance Putting on/Taking Off Upper Body Clothin - A Little Assistance Groomin - A Little Assistance Eatin - No Assistance CURRENT AM-PAC Activity Raw Score: 19 CURRENT AM-PAC Activity Functional Limitation/Modifier: 42.80% Currently Impaired in Daily Activity - CK Interventions: Intervention 1 Intervention Name: patient education Sets/Reps/Duration: 5 minutes Details: Pt educated on safety precautions associated with hemorrhagic stroke such as with bending forward too far and heavy lifting to avoid overexhertion and LOB. Assessment & Plan: Per chart review, Antonia Kruger is a 51 y.o. male with history of hypertension, hyperlipidemia, type 2 diabetes, obesity who presents as a level 1 hemorrhagic stroke transfer from outside hospital with concern for 2 days of left hand and leg numbness, difficulty with fine motor tasks with left hand. Symptoms began to improve during transport. Patient was alert and oriented x4 upon arrival. Read from outside hospital revealed right basal ganglia bleed without midline shift. Patient was admitted for R basal ganglia bleed and seen for therapy evaluation related to effects on occupational performance. Exam findings include impairments in: aerobic capacity, coordination, endurance, sensation, joint integrity and mobility, motor function, muscle performance. These impairments contribute to occupational performance limitations including bathing, dressing, grooming, toileting, functional mobility, ADL transfers, work/school integration, home management tasks, shopping/errands, driving/transportation. The following factors impact the plan of care: Psychosocial Factors Positive indicators for performance: Adequate support system Patient will benefit from skilled occupational therapy to address these impairments, occupational performance limitations, and participation restrictions. Patient's rehab potential is: good, to achieve stated therapy goals. Planned Therapy Interventions (OT Eval): ADL retraining, IADL retraining, balance training, fine motor coordination training, functional activity tolerance Patient Instruction/Education this session: Patient Instruction: role of OT, plan of care, safety precautions Plan for next session: dynamic standing balance during functional/ self-care tasks Acute OT Goals Plan of Care by Shruthi Garrison OT at 07/23/2022 9:04 AM Version 1 of 1 Problem: OT - Balance Goal: Balance - Standing Description: Pt will perform 15-30 minutes of functional dynamic reach ADL task in standing with modified independence and balance level of supervision to promote safety and improved balance required for self-care activities. Outcome: Ongoing Problem: OT - Endurance Goal: Endurance Functional Task Standing Description: Pt will engage in standing functional task for 30 minutes with modified independence to improve activity tolerance necessary for safe ADL completion at recommended discharge destination. Outcome: Ongoing Problem: OT - Strength/ROM Goal: Neuro Re-education Description: Pt will participate in neuro re-ed of (LUE/hand) to improve fine motor/dexterity skills for improved use in ADLs. Outcome: Ongoing OT treatment consisted of balance training, energy conservation/endurance training, fine motor coordination training, joint mobilization and motor coordination training to work and progress towards above goal(s). Evaluating Therapist: BRADFORD Dobson Additional Details: Co-evaluation/co-treatment performed?: Yes, simultaneous billable skilled care This co-evaluation session performed between OT and PT was beneficial, necessary and provided distinct services in establishing this person's individual plan of care. Medical complexity with functional deficits necessitated two skilled therapy disciplines working concurrently to determine each discipline's goals. This co-treatment was medically necessary due to patient's: Cognitive issues, Coordination issues and balance issues I used gloves and facemask in today's patient interaction. OT Evaluation Complexity Occupational Profile and Client History: Moderate - expanded history Assessment of Occupational Performance: Moderate (3-5 performance deficits) Clinical Decision/Performance Deficits: Moderate (detailed assessments w/several treatment options) Time In: 827 Time Out: 903 Total Visit Time: 36 minutes Total Treatment Time (skilled, billable minutes): 36 minutes Patient location at end of session: chair Alarms on at end of session: chair alarm Needs in reach. Upon discontinuation of Acute Care Occupational Therapy Services or patient discharge from the hospital this note represents the current Occupational Therapy Discharge Summary. Associated attestation - Shruthi Garrison OT - 07/23/2022 12:27 PM EST I, Shruthi Garrison OT, provided direct guidance in the room during this patient care session. I attest that all documentation reflects accurate skilled clinical decisions and judgements. Acute Physical Therapy Evaluation Prior to Admission AMPA score(s): PRIOR LEVEL AM-PAC Mobility Raw Score: 24 Current AM-PAC score(s): CURRENT AM-PAC Mobility Raw Score: 20 Based on the above AM-PAC score(s) and PT clinical judgment, patient is a good candidate for discharge to Home with Outpatient Rehab Services Barriers to discharge home: None Mobility equipment available at home: none used ADL equipment available at home: none Equipment needed for discharge: none Current therapy frequency recommendation in acute: Therapy Frequency: 1 time a week Precautions and Weightbearing Status: Existing Precautions/Restrictions: fall Patient Safety Communication Prior to Visit: Nursing Subjective: Pt agreeable to therapy. Pain: General Pain Documentation (Adult, OB, Peds) Presence of Pain: denies pain/discomfort Home Setting Residence: House (2-story with basement) Lives With: spouse First floor setup: half bath Second floor setup: bedroom, tub shower Number of stairs to enter home: 4 Number of stairs in home: 13 Stair Railings at Home: entry - with rail, interior - with rail Mobility Equipment Available: none used ADL Equipment Available: none Home Environment Details: Works at [employer], spouse also works Previous Level of Function Prior level ADL Overview: Independent with all ADLs Bed Mobility/Transfers: independent Ambulation Skills: independent Assistive Device: none used Level of Ambulation: community Prior Level of Function Details: Drives, denies any falls Objective/Observation: Vitals/Vitals Responses to Treatment: WNL O2 Device: room air Cognition Overall Cognitive Status: Within Functional Limits Arousal/Alertness: Appropriate responses to stimuli Orientation Level: Oriented X4 Following Commands: Follows all commands and directions without difficulty Safety Judgment: Good awareness of safety precautions Awareness of Errors: Good awareness of errors made Deficits: Fully aware of deficits Memory: Appears intact Vision Screen Currently wearing corrective lenses: No Speech Speech: no gross deficits noted Hearing Hearing: no gross deficits noted Extremity Assessments: RUE Assessment RUE Assessment: Within Functional Limits LUE Assessment LUE Assessment: Within Functional Limits Left UE Assessment Details: grossly 4+/5 RLE Assessment RLE Assessment: Within Functional Limits LLE Assessment LLE Assessment: Within Functional Limits Left LE Assessment Details: grossly 4+/5 Sensation Overall Sensation: Impaired Sensation Comments: reports numbness in left 2nd and 3rd digit Proprioception Proprioception: shows deficit Proprioception - narrative: LUE/LLE Fine Motor Coordination Additional Documentation: (impaired LUE) Mobility Assessment: Supine to Sit Mobility [place] Level: Supine->Sit: modified independence Bed Features/Set-up: Supine->Sit: Head of bed elevated Balance: Sitting Balance Static Sitting-Level of Assistance: Independent Dynamic Sitting-Level of Assistance: Independent Standing Balance Static Standing-Level of Assistance: Independent Dynamic Standing-Level of Assistance: Stand-by assist Standing-Balance Support: Gait belt Skilled Rationale: Positioning, Verbal cues Standing Balance Skilled Intervention/Details: mildly delayed LLE during dynamic balance Transfer Assessment: Sit to Stand Transfer [place] Level: Sit->Stand: supervision Gait/Functional Mobility: Gait Assessment [place] Level: Gait: supervision Assistive Device: Gait: gait belt Ambulation Distance (Feet): 150 Gait Deviations Identified: left, decreased gait speed Gait Skilled Rationale: verbal Stairs: Stairs Assessment [place] Level: Stair Negotiation: stand-by assist Assistive Device: Stair Negotiation: gait belt, left rail (ascending) Number of stairs: 7 Stairs Skilled Rationale: verbal, reciprocal pattern Outcome Score(s): Cortes Score: 51 CURRENT [facility] Basic Mobility Inpatient Short Form Turning over in bed: 4 - No Assistance Sitting/standing from chair: 3 - A Little Assistance Moving from lying on back to sittin - No Assistance Moving to and from bed to chair: 3 - A Little Assistance Walk in hospital room: 3 - A Little Assistance Climbing 3-5 steps with a railin - A Little Assistance [facility]RENT [facility] Mobility Raw Score: 20 CURRENT [facility] Mobility Functional Limitation/Modifier: 35.83% Currently Impaired in Basic Mobility - CJ Assessment & Plan: Patient was admitted for ICH and seen for therapy evaluation related to left hand numbness, impaired left UE/LE coordination deficits, and impaired balance. Exam findings include impairments in: Strength, Balance, Transfers, Gait/Locomotion, Aerobic capacity/endurance. These impairments contribute to functional limitations including Increased fall risk. Current clinical presentation is Evolving - changing/inconsistent clinical characteristics (Moderate). Patient history factors impacting Plan Of Care include none. Patient will benefit from skilled physical therapy to address these impairments, functional limitations, and participation restrictions and has excellent rehab potential to achieve therapy goals. Planned Therapy Interventions: balance training, endurance, functional activity tolerance, gait training, neuromuscular re-education, strengthening, transfer training Patient Instruction/Education this session: discharge recs Plan for next session: dynamic balance training Acute PT Goals Plan of Care by Jj Lenz PT at 07/23/2022 8:28 AM Version 1 of 1 Problem: PT - Transfers Goal: Sit <-> Stand Description: Pt will perform sit to/from stand transfers with modified independence with out an assistive device in order to improve functional mobility and safety. Outcome: Ongoing Goal: Strength/ROM Description: Pt will perform 2 sets of 12 repetitions of left upper lower extremity exercises with independence in order to improve strength, maintain ROM, necessary for functional mobility. Outcome: Ongoing Goal: Other Description: Pt will meet the MCID on the FGA to reduce fall risk at home Outcome: Ongoing Problem: PT - Mobility Goal: Ambulation Description: Pt will ambulate 300 feet with out an assistive device with independence to improve ability to navigate home environment. Outcome: Ongoing Goal: Stairs Description: Pt will ascend/descend 13 stairs with railings with modified independence with out an assistive device to improve ability to perform functional mobility necessary in recommended discharge environment. Outcome: Ongoing Evaluating Therapist: Jj Lenz PT Additional Details: Co-evaluation/co-treatment performed?: Yes, simultaneous billable skilled care This co-evaluation session performed between PT and OT was beneficial, necessary and provided distinct services in establishing this person's individual plan of care. Medical complexity with functional deficits necessitated two skilled therapy disciplines working concurrently to determine each discipline's goals. This co-treatment was medically necessary due to patient's: initial safety assessment I used facemask, protective eye shield, and gloves in today's patient interaction. Evaluation Complexity Components History: Moderate (1-2 personal factors and/or comorbidities) Body Systems Review: Moderate (Addressing a total of 3 or more elements) Clinical Presentation: Evolving - changing/inconsistent clinical characteristics (Moderate) Clinical Decision Making: Moderate Time In: 827 Time Out: 08 Total Visit Time: 28 minutes Total Treatment Time (skilled, billable minutes): 28 minutes Patient location at end of session: chair Alarms on at end of session: OT present Needs in reach. Upon discontinuation of Acute Care Physical Therapy Services or patient discharge from the hospital this note represents the current Physical Therapy Discharge Summary. Focused Assessment for Discharge Planning Patient is here for extremity weakness Initial Discharge Planning Anticipated discharge disposition: Home Anticipated DME: unknown at this time Anticipated Services at Discharge: Outpatient follow up Patient Assessment Completed: Focused Advanced Care Planning Assessment Advanced Care Planning Has the patient completed Advance Directives?: Not Completed HCPOA Agent(s): Legal Next of Kin: 1. Spouse- Dalila Kruger [phone] 2. Sibling-Sean KrugerRgcnvve-[phone] Financial Resources Insurance: Yes Prescription Coverage: Yes Resources Needed: No Resources Provided: Living Environment and Support System Patient lives with spouse. 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 Dispo pending PT/OT eval and consults. Patient Resources Prior to Admission Post-acute Services: no Community Resources: no DME: yes - glucometer Patient's goal for discharge is to return home. Meme MARINELLI ASSISTANT CITY ATTORNEYrailway equipment operator [phone] documented in this encounter [facility] 07-25-2022 Note Formatting of this n ote might be different from the original. Problem: OT - Balance Goal: Balance - Standing Description: Pt will perform 15-30 minutes of functional dynamic reach ADL task in standing with modified independence and balance level of supervision to promote safety and improved balance required for self-care activities. Outcome: Progressing Toward Goal Problem: OT - Endurance Goal: Endurance Functional Task Standing Description: Pt will engage in standing functional task for 30 minutes with modified independence to improve activity tolerance necessary for safe ADL completion at recommended discharge destination. Outcome: Progressing Toward Goal Problem: OT - Strength/ROM Goal: Neuro Re-education Description: Pt will participate in neuro re-ed of (LUE/hand) to improve fine motor/dexterity skills for improved use in ADLs. Outcome: Progressing Toward Goal [facility] 07-24-2022 Note Formatting of this n ote might be different from the original. Problem: Patient Care Overview Goal: Plan of Care Review Outcome: Progressing Toward Goal Goal: Individualization & Mutuality Outcome: Progressing Toward Goal Goal: Discharge Needs Assessment Outcome: Progressing Toward Goal Goal: Interdisciplinary Rounds/Family Conf Outcome: Progressing Toward Goal Problem: Stroke (Hemorrhagic) (Adult) Goal: Signs and Symptoms of Listed Potential Problems Will be Absent, Minimized or Managed (Stroke) Description: Signs and symptoms of listed potential problems will be absent, minimized or managed by discharge/transition of care (reference Stroke (Hemorrhagic) (Adult) CPG). Outcome: Progressing Toward Goal [facility] 07-24-2022 Note Formatting of this n ote might be different from the original. Problem: Patient Care Overview Goal: Plan of Care Review Outcome: Met This Shift Goal: Individualization & Mutuality Outcome: Met This Shift Goal: Discharge Needs Assessment Outcome: Progressing Toward Goal Goal: Interdisciplinary Rounds/Family Conf Outcome: Met This Shift Problem: Stroke (Hemorrhagic) (Adult) Goal: Signs and Symptoms of Listed Potential Problems Will be Absent, Minimized or Managed (Stroke) Description: Signs and symptoms of listed potential problems will be absent, minimized or managed by discharge/transition of care (reference Stroke (Hemorrhagic) (Adult) CPG). Outcome: Met This Shift [facility] 07-24-2022 Hospital Discharge instructions CIELO Albarado - 07/24/2022 9:49 AM EST NOTE: Your [facility] provider has placed an order for you to have an Event Monitor placed. In 3-5 days following discharge from the hospital the you can expect: ? To receive a telephone call from the [employer] provider service representative to confirm the address for mailing the monitor. If the call is not answered the monitor will not be mailed to the patient. If you haven t heard from [employer] after a week from order date please contact option #1 , then 1 again. Ask for address verification. ? Once the monitor is received follow the instructions for hook-up ? Call [facility] to confirm the hook-up has been completed properly and the monitor is recording. This is referred to as the patient has baselined the study. All test results will be provided by the ordering physician [facility] Patient Services: (press 1, 1) 24 hours a day, 7 days a week Email: [email or web address] CLINICAL RPG DEVELOPER If you need any further assistance with scheduling follow up care, please call the Clinical Diabetes Nurse at . Please take these discharge instructions to your primary care doctor follow appointment to show them,keep them for your reference and refer to them often for follow up appointments.It is best to write your appointments on a personal calendar so you do not miss them,call if you need to change any appointments please. Education: What are the most common symptoms of stroke? The following are the most common symptoms of stroke. However, each individual may experience symptoms differently. If any of these symptoms are present, call 911 (or your local ambulance service) immediately. Treatment is most effective when started immediately. Symptoms may be sudden and include: -Weakness or numbness of the face, arm, or leg, especially on one side of the body -Confusion or difficulty speaking or understanding -Problems with vision such as dimness or loss of vision in one or both eyes -Dizziness or problems with balance or coordination -Problems with movement or walking -Severe headaches with no other known cause, especially if sudden onset All of the above warning signs may not occur with each stroke. Do not ignore any of the warning signs, even if they go away - take action immediately. The symptoms of stroke may resemble other medical conditions or problems. Always consult your physician for a diagnosis We have provided both written and verbal education to the patient and family regarding ischemic and hemorrhagic strokes. We have discussed the warning signs/symptoms as well as causes of stroke. We have discussed the importance of activating 911/EMS in the event of these symptoms. We have reviewed the patient's personal risk factors as well as education on reducing these risk factors. [facility] Personalized Stroke Treatment Plan My Stroke Type: [] Ischemic Stroke (Blockage of blood flow to the brain) [x] Hemorrhagic Stroke (Bleeding in the brain) [] TIA- Transient Ischemic Attack (mini-stroke) My Risk Factors Include: [x] High Blood Pressure [x] Diabetes [x] High Cholesterol [x] Heart Disease [] Atrial Fibrillation (Irregular Heart Rate) [] Smoking [x] Obesity [] Clotting Disorder [] Alcohol Abuse [] Drug Abuse [] Prior History [] Family History [x] Obstructive Sleep Apnea My Follow-Up Treatment Goals: [x] Blood Pressure < 140/90 [x] Stop Smoking Immediately [x] LDL < 70 [x] HgA1C levels <7% [x] Decrease BMI to <25 [x] Take all ordered medications [] Avoid non-prescription or over the counter medication not cleared by your physician [x] Limit Alcohol use to no more than 1 drink per day for females and 2 drinks per day for males [] Do not drive until cleared [x] Follow up with PCP within a week of discharge to home [x] Follow-up with Neurovascular and cardiology [x] Follow-up with Occupational,physical and speech therapy if ordered [x] Watch out for depression and seek treatment if needed CONTACTS FOR NEUROVASCULAR SERVICE: - You may call your neurovascular doctors office at [phone], if you have questions between 8:30 am and 4:30 pm. - For off hours or the weekend you may call the office or the hospital sewing machine operator semiautomatic at and ask for the stroke resident quality assurance monitor body to be paged. - If you have any questions or needs, please call France Timmons RN, stroke theatre program director at [phone] Mon-Fri from 11-24 ? Any questions concerning your discharge instructions please call Case Management Office [phone] Patient Stroke Resources: [facility] Stroke Support The [facility] Stroke Support Group is for stroke survivors, friends, and family members. Meets every Thursday from 12:00PM to 1:00PM at [facility] ([facility] [place] [address] [place] [address] Bre Gongora, at [phone]. If you are outside of the [facility], contact The [place] Stroke Association at www.strokeassociation.org or 1-041-3-stroke, or for supports groups in your area. Also refer to the Stroke Education booklet you received as part of your stroke education while you were a patient for additional resources Additional Contacts: Evening and Weekend Contacts If you have questions or concerns during evening, weekend, or holiday hours, please call: -[facility] and Alexandria Martinez sewing machine operator semiautomatic at [phone]. -[facility] sewing machine operator semiautomatic at [phone] Ask the sewing machine operator semiautomatic to page the on-call doctor for Neurovascular service, they were responsible for your care while you were in the hospital. If you having an emergency, call 911. *In the event of an Emergency: If you have a physical or psychiatric emergency call 911 or go to your local emergency department. You should also call your outpatient provider's emergency number. Other reference numbers: [facility] Intake Office at 709-635-3847; [facility] at 088-698-0791; or Suicide Prevention Hotline at 504-584-8386. *Helpful phone numbers: Free Crisis Hotline: 2-558-876-TALK ( ) Suicide Hotline: 227.750.8852 Seniors Suicide Hotline: 844.478.5688 [facility] Youth: 544.846.4817 [facility]: [phone] (free counseling) [facility] Access Hotline: 763-480-ZVYJ (911-283-7424) 24-hour crisis text hotline: Text the word 4hope to 014-134 for crisis support. Texting this number is free if you have Verizon, T-Mobile, AT[employer] or Sprint. [facility] Financial Assistance: If you want to learn more about these programs, please call .There are three programs to help you with the cost of your medical care: Medicaid, Hospital Care Assurance Program (HCAP) & murray If you are without Insurance and believe you may qualify for Medicaid/public assistance: The [facility] Department of Job and Family Services can now process villeda (TANF), food (SNAP) and Medicaid Applications over the phone. Please call [phone] ([phone]) and apply over the phone or apply online at www.benefits.[place].gov. Thursday-Thursday 8am-12pm noon. Medication Assistance Programs [employer] members can buy 100+ common prescriptions for FREE, $3 or $6. Annual membership is $36 for individuals and $72 for families (up to 6 people, including pets). Sign up online or enroll at your nearest pharmacy! -Flock, web site can provide a significant number of coupons for medications at a much lower nevarez. CIELO Albarado - 07/25/2022 3:57 PM EST Know your medicines Make sure you know why you are taking each medicine. Make a master list of all your medicines. Write down the medicine names and doctors' names. Include doses and side effects too. And write down why you take each medicine. Include all prescription and [id number] medicines, vitamins, and supplements. Keep this list up to date. Take a copy to each doctor visit. Know when you will run out of each medicine. Ask your pharmacist if there are ways the drugstore can remind you to refill your medicines so you do not run out. Write refill reminders on your calendar. Don't wait until you have a few pills left. Ask your pharmacist to plan your refills so that you can slat pickler all your medicines at the same time. This can mean fewer trips to the drugstore. If we have prescribed you a new medication during your stay, please contact with your primary physician for refills O Cabrera - 07/25/2022 3:57 PM EST Activity -- Please follow these instructions: -Advance your activity as you can tolerate - You may walk all you want. You may go up and down the steps. Use the railing for support - It is normal for your energy level and sleep patterns to change after a stroke - Take rest periods during the day as needed - Complete recovery may take several weeks, months, up to a year. Patience is montague. O Cabrera - 07/25/2022 3:57 PM EST Notify Your Doctor if you have any of the following: NEUROLOGICAL CHANGES-- Change in alertness Increased sleepiness Nausea and vomiting New onset of numbness or weakness in arms or legs New problems with your bowels or bladder New or worse problems with balance or walking Seizures, new or worsening UNRELIEVED HEADACHE PAIN-- New or increased pain unrelieved with pain medications Pain associated with nausea and vomiting Pain associated with other symptoms QUESTIONS OR PROBLEMS-- Any questions or problems that you are unsure about Deep Vein Thrombosis Symptoms Call your doctor or nurse right away if you have any signs of blood clots such as -Tender, swollen or reddened areas anywhere in your leg. -Numbness or tingling in your lower leg or calf, or at the top of your leg or groin -Skin on you leg looks pale or blue or feels cold to touch -Chest pain or have trouble breathing -Fever or chills documented in this encounter [facility] 07-24-2022 Note Formatting of this n ote might be different from the original. Patient taken to [facility]. Alert and oriented3. Able to walk to bathroom and then to hallway with standby assistance. Kylee Fuller RN [facility] 07-23-2022 Note Formatting of this n ote might be different from the original. Problem: OT - Balance Goal: Balance - Standing Description: Pt will perform 15-30 minutes of functional dynamic reach ADL task in standing with modified independence and balance level of supervision to promote safety and improved balance required for self-care activities. Outcome: Ongoing Problem: OT - Endurance Goal: Endurance Functional Task Standing Description: Pt will engage in standing functional task for 30 minutes with modified independence to improve activity tolerance necessary for safe ADL completion at recommended discharge destination. Outcome: Ongoing Problem: OT - Strength/ROM Goal: Neuro Re-education Description: Pt will participate in neuro re-ed of (LUE/hand) to improve fine motor/dexterity skills for improved use in ADLs. Outcome: Ongoing [facility] 07-23-2022 Note Formatting of this n ote might be different from the original. Problem: PT - Transfers Goal: Sit <-> Stand Description: Pt will perform sit to/from stand transfers with modified independence with out an assistive device in order to improve functional mobility and safety. Outcome: Ongoing Goal: Strength/ROM Description: Pt will perform 2 sets of 12 repetitions of left upper lower extremity exercises with independence in order to improve strength, maintain ROM, necessary for functional mobility. Outcome: Ongoing Goal: Other Description: Pt will meet the MCID on the FGA to reduce fall risk at home Outcome: Ongoing Problem: PT - Mobility Goal: Ambulation Description: Pt will ambulate 300 feet with out an assistive device with independence to improve ability to navigate home environment. Outcome: Ongoing Goal: Stairs Description: Pt will ascend/descend 13 stairs with railings with modified independence with out an assistive device to improve ability to perform functional mobility necessary in recommended discharge environment. Outcome: Ongoing [facility] 07-23-2022 Note Formatting of this n ote might be different from the original. Images from the original note were not included. I certify that this patient requires inpatient services at this time. I anticipate the expected length of stay will include at least two midnights. Inpatient services are due to the following medical concerns stroke. Plans for post hospitalization care will be discharge to to be decided. CIELO Albarado Neurology PGY-2 Pager: [phone] 07/23/22 7:10 AM [facility] 07-22-2022 Note Acute Coronary Syndr ome (ACS): Initial Evaluation and Management: [email or web address] [email or web address] [email or web address] [facility] 07-22-2022 Emergency department Note Department of Pharmacy Emergency Department Stroke Alert Response Note Patient Name: Antonia Kruger Room/Bed: E036/E036 A Pharmacist responded to the stroke alert. The patient was determined to be having a hemorrhagic stroke. The IHIS order set ED: Confirmed Stroke/ICH - Secondary was placed by DUSTIN Cuevas for ongoing care. Pertinent medications received prior to arrival: Nicardipine 10 mg/hr The patients was determined to be taking anticoagulant(s)/antiplatelet(s) including: aspirin. Last dose(s) on 07/18 (per patient). After discussion with DUSTIN Cuevas, SBP goal is to be between 120 and 140 mmHg. The following medications were administered to attain goal SBP: nicardipine. Verified orders for PRN anti-hypertensives with correct blood pressure goal (SBP 120-140 mmHg) have been ordered for ongoing care.. Please feel free to contact me with any further questions. Name: Krish Arellano RP Phone: [phone] Date/Time: [facility]/22/2022 11:18 [facility] Emergency department Note Department of Pharmacy Emergency Department Stroke Alert Response Note Patient Name: Antonia Kruger Room/Bed: E036/E036 A Pharmacist responded to the stroke alert. The patient was determined to be having a hemorrhagic stroke. The IHIS order set ED: Confirmed Stroke/ICH - Secondary was placed by DUSTIN Cuevas for ongoing care. Pertinent medications received prior to arrival: Nicardipine 10 mg/hr The patients was determined to be taking anticoagulant(s)/antiplatelet(s) including: aspirin. Last dose(s) on 07/18 (per patient). After discussion with DUSTIN Cuevas, SBP goal is to be between 120 and 140 mmHg. The following medications were administered to attain goal SBP: nicardipine. Verified orders for PRN anti-hypertensives with correct blood pressure goal (SBP 120-140 mmHg) have been ordered for ongoing care.. Please feel free to contact me with any further questions. Name: Krish Arellano [facility] Phone: [phone] Date/Time: 07/22/2022 11:18 AM ED Attending No chief complaint on file. No past medical history on file. Antonia Kruger is a 51 y.o. male presents with ICH. Sent from OSH for basal ganglia bleed. Sent on Nicardipine, ran out during transfer. vitals were not taken for this visit. Review of Systems: All other systems were reviewed and were negative unless otherwise noted Impression: ICH Plan: Medical Decision Making Repeat basic labs, and CT head, cardene for BP control, neurovascular consult, admission. Basal ganglia hemorrhage: acute illness or injury Risk Prescription drug management. Decision regarding hospitalization. This patient's history, physical exam and any procedures were performed by the resident. On 07/22/2022 I saw and examined the patient. I discussed the history and examination with the resident and agree with the plan of care. In addition, I have fully participated in the care of this patient. I have reviewed all pertinent clinical information, including history, physical exam and medical decision making with the resident. Part of this documentation was created with voice recognition software and errors may have occurred. I was present for the documented procedures for the patient. Jacob Weber MD 07/22/22 1141 Patient arrived via medic from [facility]. LKW 5am Thursday. Drove him self to hospital. C/o left sided weakness. OSH found small bleed. NIH=0 Bed: E036 Expected date: 07/22/22 Expected time: 12:00 AM Means of arrival: Private Ambulance Comments: SW responded to Level A Hemorrhagic Stroke Alert brought in by [facility] from [facility]. Patient's information is the same as listed in the chart. Emergency Contacts: Dalila Kruger [phone] (patient's ); Sean Whitney [phone] (patient's brother) Per Medics, patient did not have any family with him at [facility] nor is there any information about anyone coming to [facility]. SW met with patient at bedside to ask about family/support. Patient provided the names and numbers of his and brother. He stated his brother was driving from [facility] to go to [place] to slat pickler patient's then they were coming to [facility]. LITO will be available for support as needed while patient is in the ED. JUDIT Phillips LISW Medical Social Work Please note that I am a float SW and may not be covering the same unit each day. Please reach out to the floor/unit SW for additional needs/concerns. Contact info for weekend CM and SW staff (8:00am - 4:30pm): [facility]: CCM: [phone] / Trademark Attorney: [phone] Argueta: CCM: [phone] / Trademark Attorney: [phone] Vasiliy: [facility] : [phone] / [employer] Attorney: [phone] Ross/MICU/PCU Juan: CCM: [phone] / Tradem[employer] Attorney: [phone] DEPARTMENT OF EMERGENCY MEDICINE CHIEF COMPLAINT No chief complaint on file. HPI Antonia Kruger is a 51 y.o. male with history of hypertension, hyperlipidemia, type 2 diabetes, obesity who presents as a level 1 hemorrhagic stroke transfer from outside hospital with concern for 2 days of left hand and leg numbness, difficulty with fine motor tasks with left hand. Symptoms began to improve during transport. Patient was alert and oriented x4 upon arrival. Read from outside hospital revealed right basal ganglia bleed without midline shift. LKW: Thursday night Glucose: 196 REVIEW OF SYSTEMS A 10-point review of systems was completed and is negative except as documented above in the HPI PAST MEDICAL HISTORY Past medical history was reviewed and is non-contributory to the presenting problem other than: No past medical history on file. SURGICAL HISTORY Past surgical history was reviewed and is non-contributory to the presenting problem other than: No past surgical history on file. CURRENT MEDICATIONS Current Facility-Administered Medications Medication Dose Route Frequency Provider Last Rate Last Admin hydrALAZINE (APRESOLINE) injection 10 mg 10 mg Intravenous Q10 MIN PRN Umair A Mason, PROJECT FACILITATOR-SUPERVISOR [employer]ESHING Labetalol (NORMODYNE) injection 20 mg 20 mg Intravenous Q10 MIN PRN Umair A Mason, PROJECT FACILITATOR-SUPERVISOR [employer]ING Sodium chloride 0.9% IV solution Intravenous Continuous Umair A Mason, PROJECT FACILITATOR-SUPERVISOR [employer]ING No current outpatient medications on file. ALLERGIES Not on File FAMILY HISTORY Family history was reviewed and is non-contributory to the presenting problem other than: No family history on file. SOCIAL HISTORY Social history was reviewed and is non-contributory to the presenting problem other than: Social History Socioeconomic History Marital status: Not on file Spouse name: Not on file Number of children: Not on file Years of education: Not on file Highest education level: Not on file Occupational History Not on file Tobacco Use Smoking status: Not on file Smokeless tobacco: Not on file Substance and Sexual Activity Alcohol use: Not on file Drug use: Not on file Sexual activity: Not on file Other Topics Concern Not on file Social History Narrative Not on file Social Determinants of Health Financial Resource Strain: Not on file Food Insecurity: Not on file Transportation Needs: Not on file Physical Activity: Not on file Stress: Not on file Social Connections: Not on file Intimate Partner Violence: Not on file Housing Stability: Not on file PHYSICAL EXAM There were no vitals taken for this visit. General: Alert and oriented. In no acute distress. HEENT: Normocephalic and atraumatic. Eyes: EOMI. PERRL. No scleral icterus. Oropharynx: Mucous membranes moist. No lesions noted. Neck: Neck supple. Respiratory: Normal Respiratory effort. Clear to auscultation bilaterally. Cardiovascular: Normal Rate and Regular Rhythm. Normal S1 and S2. No murmurs, rubs, or gallops appreciated. No JVD appreciated. No peripheral edema. No Pitting edema in LE bilaterally. 2+ pedal pulses bilaterally. Abdomen: Soft, non-distended, non-tender. No rebound/guarding. Musculoskeletal: No deformities noted. Normal range of motion all extremities. Neurological: Left upper and lower extremity paresthesias Skin: No cyanosis. No rashes or excoriations noted on face, abd, or limbs. There is no height or weight on file to calculate BMI. ED COURSE & MEDICAL DECISION MAKING Assessment: Antonia Kruger is a 51 y.o. male who presents as a Level 1 stroke alert with the following neurological deficits: Left upper and lower extremity paresthesias. The patient was met in the CT scanner by myself and the neurology resident. The patient was found to be hemodynamically stable and protecting airway. DDx: cerebrovascular accident, transient ischemic attack, complex migraine, seizure, metabolic abnormalities, intracranial mass Plan: - Stroke Alert - Labs: CBC, chemistries, coags, LFTs, POC glucose - Imaging: CT Head w/o contrast, CTA, CT Perfusion - BP control - Neuro checks - Neurovascular consult ED Course and Medical Decision-Making: The patient has persistent symptoms. The patient was found to have a known right basal ganglia hemorrhagic bleed. Repeat imaging performed, The patient will therefore require inpatient admission for further management. CT STROKE HEAD-STROKE ALERT ONLY Final Result IMPRESSION: Stable size of acute intraparenchymal hematoma centered in the right basal ganglia compared to the outside institution CT head examination performed earlier today. Findings were discussed with Umair Cuevas CNP at 11:21 AM on July 22, 2022. I personally viewed and interpreted these images and I have reviewed and approved this report. HEAD WITHOUT CONTRAST (Results Pending) MRI BRAIN WITHOUT CONTRAST (Results Pending) Results for orders placed or performed during the hospital encounter of 07/22/22 [facility] 7 - ED Result Value Ref Range Sodium 135 135 - 145 mmol/L Potassium 4.0 3.5 - 5.0 mmol/L Chloride 101 98 - 108 mmol/L CO2 25 21 - 31 mmol/L Glucose 293 (H) 70 - 99 mg/dL BUN 14 7 - 25 mg/dL Creatinine 0.82 0.70 - 1.30 mg/dL Bun/Crea Ratio 17 Osmolality (Calculated) 296 278 - 305 mOsm/kg Anion Gap 13 7 - 17 mmol/L eGFR, CKD-EPI, Male >90 >=60 mL/min/1.73m2 HEPATIC FUNCTION PANEL Result Value Ref Range Albumin 4.2 3.5 - 5.0 g/dL Bilirubin Direct 0.1 <0.3 mg/dL Bilirubin Total 0.8 <1.5 mg/dL ALP 73 32 - 126 U/L ALT 19 10 - 52 U/L AST 13 10 - 39 U/L Total Protein 7.4 6.4 - 8.3 g/dL PTINR-STROKE Result Value Ref Range PT 13.2 11.9 - 14.2 sec INR 1.0 0.9 - 1.1 PTT Result Value Ref Range PTT 27.7 24.0 - 34.3 sec HIGH SENSITIVITY TROPONIN I - SINGLE ORDER Result Value Ref Range hs-Troponin I 9 <53 ng/L CBC AND ELECTRONIC DIFF Result Value Ref Range WBC Count 12.01 (H) 3.73 - 10.10 K/uL RBC Count 5.30 4.38 - 5.83 M/uL Hemoglobin 12.8 (L) 13.4 - 16.8 g/dL Hematocrit 40.9 39.6 - 48.8 % Mean Cell Volume 77.2 (L) 79.0 - 94.5 fL Mean Cell Hgb 24.2 (L) 26.1 - 33.3 pg Mean Cell Hgb Conc 31.3 (L) 31.9 - 36.5 g/dL RBC Distribution 14.9 (H) 10.9 - 14.3 % Platelet Count 342 (H) 146 - 337 K/uL Mean Platelet Volume 9.6 8.7 - 12.3 fL DIFF STATUS Electronic Differential Segs + Bands Auto 81.7 % Immature Grans % 0.8 % Lymphocyte % Auto 11.0 % Monocyte % Auto 6.0 % Eosinophil % Auto 0.2 % Basophil % Auto 0.3 % Nucleated RBC 0.0 <=0.2 /100 WBC Segs + Bands,Absolute Auto 9.81 (H) 1.57 - 6.19 K/uL Immature Grans Absolute 0.10 (H) <=0.07 K/uL Abs Lymph Auto 1.32 0.83 - 3.57 K/uL Abs Burt Auto 0.72 0.24 - 0.93 K/uL Abs Eos Auto <0.04 0.00 - 0.48 K/uL Abs Baso Auto 0.04 0.00 - 0.09 K/uL TYPE AND SCREEN Result Value Ref Range ABO/RH(D) TYPE O NEG ANTIBODY SCREEN NEG This note was dictated using [employer] Dictation Software. Attempts at proofreading have been made, however errors may still occasionally occur. Kp Calles DO Resident 07/22/22 1330 documented in this encounter [facility] 07-22-2022 Physician Emergency department Note ED Attending No chief complaint on file. No past medical history on file. Antonia Kruger is a 51 y.o. male presents with ICH. Sent from OSH for basal ganglia bleed. Sent on Nicardipine, ran out during transfer. vitals were not taken for this visit. Review of Systems: All other systems were reviewed and were negative unless otherwise noted Impression: ICH Plan: Medical Decision Making Repeat basic labs, and CT head, cardene for BP control, neurovascular consult, admission. Basal ganglia hemorrhage: acute illness or injury Risk Prescription drug management. Decision regarding hospitalization. This patient's history, physical exam and any procedures were performed by the resident. On 07/22/2022 I saw and examined the patient. I discussed the history and examination with the resident and agree with the plan of care. In addition, I have fully participated in the care of this patient. I have reviewed all pertinent clinical information, including history, physical exam and medical decision making with the resident. Part of this documentation was created with voice recognition software and errors may have occurred. I was present for the documented procedures for the patient. Jacob Weber MD 07/22/22 1141 [facility] Work Phone: 07-22-2022 Emergency department Note Patient arrived via medic from [facility]. LKW 5am Thursday. Drove him self to hospital. C/o left sided weakness. OSH found small bleed. NIH=0 [facility] 07-22-2022 Emergency department Note Bed: E036 Expected date: 07/22/22 Expected time: 12:00 AM Means of arrival: Private Ambulance Comments: [facility] 07-22-2022 Emergency department Note SW responded to Level A Hemorrhagic Stroke Alert brought in by [facility] from [facility]. Patient's information is the same as listed in the chart. Emergency Contacts: Dalila Kruger [phone] (patient's ); Sean Kruger [phone] (patient's brother) Per Medics, patient did not have any family with him at [facility] nor is there any information about anyone coming to [facility]. SW met with patient at bedside to ask about family/support. Patient provided the names and numbers of his and brother. He stated his brother was driving from [facility] to go to [place] to slat pickler patient's then they were coming to [facility]. SW will be available for support as needed while patient is in the ED. JUDIT Phillips, MAGGY Medical Social Work Please note that I am a float SW and may not be covering the same unit each day. Please reach out to the floor/unit SW for additional needs/concerns. Contact info for weekend CM and SW staff (8:00am - 4:30pm): [facility]: CCM: [phone] / Trademark Attorney: [phone] Argueta: CCM: [phone] / [employer]ademark Attorney: [phone] Vasiliy: CCM : [phone] / Trademark Attorney: [phone] Ty/MICU/PCU Juan: CCM: [phone] / Trademark Attorney: [phone] [facility] 07-22-2022 Physician Emergency department Note DEPARTMENT OF EMERGENCY MEDICINE CHIEF COMPLAINT No chief complaint on file. HPI Antonia Kruger is a 51 y.o. male with history of hypertension, hyperlipidemia, type 2 diabetes, obesity who presents as a level 1 hemorrhagic stroke transfer from outside hospital with concern for 2 days of left hand and leg numbness, difficulty with fine motor tasks with left hand. Symptoms began to improve during transport. Patient was alert and oriented x4 upon arrival. Read from outside hospital revealed right basal ganglia bleed without midline shift. LKW: Thursday night Glucose: 196 REVIEW OF SYSTEMS A 10-point review of systems was completed and is negative except as documented above in the HPI PAST MEDICAL HISTORY Past medical history was reviewed and is non-contributory to the presenting problem other than: No past medical history on file. SURGICAL HISTORY Past surgical history was reviewed and is non-contributory to the presenting problem other than: No past surgical history on file. CURRENT MEDICATIONS Current Facility-Administered Medications Medication Dose Route Frequency Provider Last Rate Last Admin hydrALAZINE (APRESOLINE) injection 10 mg 10 mg Intravenous Q10 MIN PRN Umair A Mason, PROJECT FACILITATOR-SUPERVISOR FLESHING Labetalol (NORMODYNE) injection 20 mg 20 mg Intravenous Q10 MIN PRN Umair A Mason, PROJECT FACILITATOR-SUPERVISOR [employer]ESHING Sodium chloride 0.9% IV solution Intravenous Continuous Umair Nikki Mason, PROJECT FACILITATOR-SUPERVISOR [employer]ESHING No current outpatient medications on file. ALLERGIES Not on File FAMILY HISTORY Family history was reviewed and is non-contributory to the presenting problem other than: No family history on file. SOCIAL HISTORY Social history was reviewed and is non-contributory to the presenting problem other than: Social History Socioeconomic History Marital status: Not on file Spouse name: Not on file Number of children: Not on file Years of education: Not on file Highest education level: Not on file Occupational History Not on file Tobacco Use Smoking status: Not on file Smokeless tobacco: Not on file Substance and Sexual Activity Alcohol use: Not on file Drug use: Not on file Sexual activity: Not on file Other Topics Concern Not on file Social History Narrative Not on file Social Determinants of Health Financial Resource Strain: Not on file Food Insecurity: Not on file Transportation Needs: Not on file Physical Activity: Not on file Stress: Not on file Social Connections: Not on file Intimate Partner Violence: Not on file Housing Stability: Not on file PHYSICAL EXAM There were no vitals taken for this visit. General: Alert and oriented. In no acute distress. HEENT: Normocephalic and atraumatic. Eyes: EOMI. PERRL. No scleral icterus. Oropharynx: Mucous membranes moist. No lesions noted. Neck: Neck supple. Respiratory: Normal Respiratory effort. Clear to auscultation bilaterally. Cardiovascular: Normal Rate and Regular Rhythm. Normal S1 and S2. No murmurs, rubs, or gallops appreciated. No JVD appreciated. No peripheral edema. No Pitting edema in LE bilaterally. 2+ pedal pulses bilaterally. Abdomen: Soft, non-distended, non-tender. No rebound/guarding. Musculoskeletal: No deformities noted. Normal range of motion all extremities. Neurological: Left upper and lower extremity paresthesias Skin: No cyanosis. No rashes or excoriations noted on face, abd, or limbs. There is no height or weight on file to calculate BMI. ED COURSE & MEDICAL DECISION MAKING Assessment: Antonia Kruger is a 51 y.o. male who presents as a Level 1 stroke alert with the following neurological deficits: Left upper and lower extremity paresthesias. The patient was met in the CT scanner by myself and the neurology resident. The patient was found to be hemodynamically stable and protecting airway. DDx: cerebrovascular accident, transient ischemic attack, complex migraine, seizure, metabolic abnormalities, intracranial mass Plan: - Stroke Alert - Labs: CBC, chemistries, coags, LFTs, POC glucose - Imaging: CT Head w/o contrast, CTA, CT Perfusion - BP control - Neuro checks - Neurovascular consult ED Course and Medical Decision-Making: The patient has persistent symptoms. The patient was found to have a known right basal ganglia hemorrhagic bleed. Repeat imaging performed, The patient will therefore require inpatient admission for further management. CT STROKE HEAD-STROKE ALERT ONLY Final Result IMPRESSION: Stable size of acute intraparenchymal hematoma centered in the right basal ganglia compared to the outside institution CT head examination performed earlier today. Findings were discussed with Umair Cuevas CNP at 11:21 AM on July 22, 2022. I personally viewed and interpreted these images and I have reviewed and approved this report. HEAD WITHOUT CONTRAST (Results Pending) MRI BRAIN WITHOUT CONTRAST (Results Pending) Results for orders placed or performed during the hospital encounter of 07/22/22 [facility] 7 - ED Result Value Ref Range Sodium 135 135 - 145 mmol/L Potassium 4.0 3.5 - 5.0 mmol/L Chloride 101 98 - 108 mmol/L CO2 25 21 - 31 mmol/L Glucose 293 (H) 70 - 99 mg/dL BUN 14 7 - 25 mg/dL Creatinine 0.82 0.70 - 1.30 mg/dL Bun/Crea Ratio 17 Osmolality (Calculated) 296 278 - 305 mOsm/kg Anion Gap 13 7 - 17 mmol/L eGFR, CKD-EPI, Male >90 >=60 mL/min/1.73m2 HEPATIC FUNCTION PANEL Result Value Ref Range Albumin 4.2 3.5 - 5.0 g/dL Bilirubin Direct 0.1 <0.3 mg/dL Bilirubin Total 0.8 <1.5 mg/dL ALP 73 32 - 126 U/L ALT 19 10 - 52 U/L AST 13 10 - 39 U/L Total Protein 7.4 6.4 - 8.3 g/dL PTINR-STROKE Result Value Ref Range PT 13.2 11.9 - 14.2 sec INR 1.0 0.9 - 1.1 PTT Result Value Ref Range PTT 27.7 24.0 - 34.3 sec HIGH SENSITIVITY TROPONIN I - SINGLE ORDER Result Value Ref Range hs-Troponin I 9 <53 ng/L CBC AND ELECTRONIC DIFF Result Value Ref Range WBC Count 12.01 (H) 3.73 - 10.10 K/uL RBC Count 5.30 4.38 - 5.83 M/uL Hemoglobin 12.8 (L) 13.4 - 16.8 g/dL Hematocrit 40.9 39.6 - 48.8 % Mean Cell Volume 77.2 (L) 79.0 - 94.5 fL Mean Cell Hgb 24.2 (L) 26.1 - 33.3 pg Mean Cell Hgb Conc 31.3 (L) 31.9 - 36.5 g/dL RBC Distribution 14.9 (H) 10.9 - 14.3 % Platelet Count 342 (H) 146 - 337 K/uL Mean Platelet Volume 9.6 8.7 - 12.3 fL DIFF STATUS Electronic Differential Segs + Bands Auto 81.7 % Immature Grans % 0.8 % Lymphocyte % Auto 11.0 % Monocyte % Auto 6.0 % Eosinophil % Auto 0.2 % Basophil % Auto 0.3 % Nucleated RBC 0.0 <=0.2 /100 WBC Segs + Bands,Absolute Auto 9.81 (H) 1.57 - 6.19 K/uL Immature Grans Absolute 0.10 (H) <=0.07 K/uL Abs Lymph Auto 1.32 0.83 - 3.57 K/uL Abs Burt Auto 0.72 0.24 - 0.93 K/uL Abs Eos Auto <0.04 0.00 - 0.48 K/uL Abs Baso Auto 0.04 0.00 - 0.09 K/uL TYPE AND SCREEN Result Value Ref Range ABO/RH(D) TYPE O NEG ANTIBODY SCREEN NEG This note was dictated using [employer] Dictation Software. Attempts at proofreading have been made, however errors may still occasionally occur. Kp Calles DO Resident 07/22/22 1330 [facility] Work Phone: 07-22-2022 Discharge summary Note Date/Time July 22, 2022 6:30am [facility] Medical Records Department [address] [place] [address] Emergency Department Summary 07/22/22 MR#: [id number] Acct: [id number] Name: ANTONIA KRUGER Rep #:[id number] : 1970 51 From: Jong Jalloh MD PCP: Dr. Krista Schmidt MD Status:REG ER Location: ED HPI History of Present Illness Chief Complaint: Numb/Ting Informant: patient Narrative Narrative: Patient presents with some numbness tingling and weakness on his left side. He states he was normal when he went to bed Thursday night. When he woke up Thursday he noticed that he had tingling of his left hand. He had trouble making his left leg follow his directions. He had trouble lifting it up and making it moved. This lasted for maybe 5 minutes. He was then able to get up and walk around. He actually went to work yesterday and stood up all day. He did not have the numbness tingling or weakness during the day. He did note last evening when he was typing on a keyboard his left hand just felt a little funny. He then went to bed and he felt fine. When he woke up this morning he had similar symptoms as yesterday morning. He states he still has a little numbnessin his left hand but it is only the very tip of his left hand index and middle finger. It is more on the volar side than the dorsal side. He has never had headache or trauma. He has no history of strokes. He does have a history of high blood pressure, cardiomyopathy, cholesterol and diabetes so he has multiplerisk factors. He has not been feeling ill recently other than these above complaints. Of note, I note that the patient's blood pressure is up here. He is not having headache or chest pain. He is not sure if he took his blood pressure medicines this morning or not. We will recheck this. If it remains elevated we will we will treat it consistent with stroke protocol. [facility] Medical History Cardiomyopathy Diabetes High cholesterol Hypertension Home Medications cholecalciferol (vitamin D3) 1,250 mcg (50,000 unit) capsule 1,250 mcg PO QWEEK 10/27/20 [History Last Taken Unknown] bupropion HCl 150 mg tablet,12 hr sustained-release 150 mg PO BID 30 days #60 ea07/19/21 [Rx Last Taken Unknown] glimepiride 4 mg tablet 4 mg PO DAILY #30 tabs 07/19/21 [Rx Last Taken Unknown] amlodipine 10 mg-benazepril 20 mg capsule 1 cap PO QHS #90 caps 08/14/21 [Rx Last Taken Unknown] aspirin 81 mg tablet,delayed release (Adult Aspirin Regimen) 81 mg PO DAILY #90 tabs 08/14/21 [Rx Last Taken Unknown] metoprolol tartrate 25 mg tablet 25 mg PO BID #180 tabs 08/14/21 [Rx Last Taken Unknown] pravastatin 40 mg tablet 40 mg PO QHS #90 tabs 08/14/21 [Rx Last Taken Unknown] spironolactone 25 mg tablet 25 mg PO DAILY #90 tabs 08/14/21 [Rx Last Taken Unknown] Allergy/AdvReac Type Severity Reaction Status Date / Time No Known Allergies Allergy Verified 07/22/22 06:12 Surgical History H/O hernia repair Social History household members: spouse number of children: 0 current occupational status: employed Smoking Status: Never smoker ROS ROS ED Constitutional Constitutional ED: Denies chills or fever(s) Eyes Eyes: Denies blurry vision, change in vision or diplopia ENT ENT ED: Denies sore throat Cardiovascular Cardiovascular: Denies chest pain or palpitations Respiratory/Chest Respiratory/Chest: Denies cough or dyspnea Gastrointestinal Gastrointestinal: Denies nausea or vomiting Genitourinary Genitourinary ED: Denies hematuria Musculoskeletal Musculoskeletal: Denies back pain or neck pain Integumentary Denies rash Neurologic Neurologic: Reports paresthesias, weakness and other Details: See history of present illness. ; Denies headache(s) Endocrine Endocrinology: Denies polydipsia or polyuria Hematologic/Lymphatic Hematologic/Lymphatic: Reports other Details: He denies being on any anticoagulation. ; Denies easy bleeding or easy bruising Allergic/Immunologic Allergic/Immunologic ED: Denies urticaria EXAM Physical Exam Narrative Exam Narrative: Since the bed talking on the phone. He is in no acute distress. He carries on normal conversation. HEENT shows a skin abnormality of the top of his head. He states this is not from any surgery but this has been there his whole life and is unchanged. I hadinitially thought it may be a surgical wound. Eyes show no pallor or icterus. No visual field cut by confrontation. Neck shows no JVD. He does have a thick neck. This may preclude seeing this. I do not hear a bruit. Heart sounds regular. Rate of about 90. I am not hearing any murmur. Lungs are clear bilaterally. Saturation is normal at 97% on room air showing nohypoxia. Abdomen is obese but benign. Extremities show no notable edema. He does have a splint on his right ankle that is chronic. Neuro: Patient has an NIH of 0 at this time. The only finding I have is a senseof numbness at the tip of his left index and middle finger. He does feel that this is more volar than dorsal. This may be radial nerve involvement but this would not explain the other symptoms he had on the left side of his body. Skin shows no rash. Const Vital Signs: 07/22/22 06:09 07/22/22 06:24 07/22/22 06:54 Temperature 97.8 F 97.8 F Temperature Source Temporal Temporal Pulse Rate 89 89 Respiratory Rate 19 H 17 Blood Pressure 218/113 H 218/113 H Blood Pressure Mean 148 148 Pulse Ox 97 96 97 Oxygen Delivery Method Room Air Room Air Room Air 07/22/22 07:24 07/22/22 07:30 07/22/22 07:51 Temperature Temperature Source Pulse Rate 89 100 92 Respiratory Rate 17 26 H 24 H Blood Pressure 213/128 H 196/179 H 220/124 H Blood Pressure Mean 156 184 156 Pulse Ox 95 95 96 Oxygen Delivery Method Room Air Room Air Room Air 07/22/22 07:45 07/22/22 08:00 Temperature Temperature Source Pulse Rate 81 81 Respiratory Rate 24 H 17 Blood Pressure 220/124 H 193/108 H Blood Pressure Mean 156 136 Pulse Ox 95 96 Oxygen Delivery Method Room Air Room Air MDM MDM MDM Narrative Medical decision making narrative: My independent interpretation the patient's CT of the head without contrast doesshow a right sided basal ganglial region bleed. I do not see any shift. Final reading is similar. I went and checked the patient after this. He is still really asymptomatic. His blood pressure is up and we have already put in meds for that. I have now changed the parameters from ischemic to hemorrhagic stroke blood pressure management. I discussed this with the nurse. I talked directly with the radiologist about this head CT also. I then discussed the CTA that shows no acute stenosis occlusion or aneurysm with a different radiologist. I then called the [facility] hemorrhagic stroke phone line. I discussed this with her nurse transition manager. She discussed the case with Dr. Berrios who accepted thepatient in transfer to the ED and Dr. Somers was also notified. I did update the patient about the need for this transport and the reasons. Patient CBC shows minimally low hemoglobin. However his platelets and white count are normal. Electrolytes are normal. Coagulation studies are pending at this time. Due to multiple evaluations of the patient, review of images, labs, discussion with multiple providers and arranging transport, critical care time of 42 minutes was needed. Lab Data Attestation: I reviewed the patient's lab results. Labs: Laboratory Results - last 24 hr 07/22/22 07/22/22 07/22/22 06:44 06:44 06:59 WBC 8.9 RBC 5.29 Hgb 12.9 L Hct 41.7 MCV 78.8 L MCH 24.4 L MCHC 30.9 L RDW Std Deviation 42.0 RDW Coeff of Marcela 14.6 Plt Count 333 MPV 9.3 Immature Gran % (Auto) 0.500 Neut % (Auto) 66.7 Lymph % (Auto) 22.3 Burt % (Auto) 8.8 Eos % (Auto) 1.2 Baso % (Auto) 0.5 Absolute Neuts (auto) 5.9 Absolute Lymphs (auto) 1.97 Nucleated RBC % 0 Sodium 138 Potassium 3.5 Chloride 104 Carbon Dioxide 26.0 Anion Gap 8 BUN 12 Creatinine 0.74 Estim Creat Clear Calc 106.57 Est GFR (MDRD) Af Amer 144 Est GFR (MDRD) Non-Af 119 BUN/Creatinine Ratio 16.3 Glucose 190 H Calcium 9.1 Troponin I High Sens 24 POC Glucose 190 H Radiography Diagnostic Testing: Clinical Impression(s) from Imaging Studies Brain CT 07/22/22 06:24 IMPRESSION: 1. Small right gangliocapsular hemorrhage. Favor spontaneous hypertensive hemorrhage. 2. Cerebral atrophy and chronic small vessel ischemic changes. Electronically Signed: Alonzo Villegas MD at 7:47 EST , ADDENDUM: 07/22/22 0755 IMPRESSION: 1. Small right gangliocapsular hemorrhage. Favor spontaneous hypertensive hemorrhage. 2. Cerebral atrophy and chronic small vessel ischemic changes. N.B. : The above Results were Read Back by Alozno iVllegas MD to JONG JALLOH MD, and understanding confirmed on 07/22/2022 07:48:16 (ET). Electronically Signed: Alonzo Villegas MD at 7:47 EST , Head/Neck CTA 07/22/22 06:25 IMPRESSION: No evidence of arterial stenosis, occlusion, dissection or intracranial aneurysm. N.B. : The above Results were Read Back by Tonio Cui MD to JONG JALLOH MD, and understanding confirmed on 07/22/2022 07:53:11 (ET). Electronically Signed: Tonio Cui MD at 7:57 EST , Chest X-Ray 07/22/22 07:35 IMPRESSION: No radiographic evidence of consolidative airspace disease or florid edema Electronically Signed: Jacob Peñaloza MD at 7:51 EST , EKG Initial EKG: Comments: My independent interpretation of an EKG done as part of work-up for TIA symptoms show a normal sinus rhythm with right bundle branch block. No ventricular ectopy. Trace elevation just in lead III but not in lead II or aVF. There is some dyspnea diffuse nonspecific changes. I think this is all due to the right bundle branch block. UT interval is normal. QRS duration and QTc arelong. The EKG is similar to 1 done 17 July 2021. Critical Care Time Critical care time (excluding procedures): 30-74 minutes, Discussing w/Patient &/or Family/Regional Sales Leader, Discussing w/Consultants, Arranging Admission or Transfer, Performing Direct Patient Care at Bedside and - (42 minutes, see MDM) Discharge Plan Triage Chief Complaint: Numb/Ting ED Provider: Jong Jalloh Dx/Rx/DC Orders Clinical Impression: Stroke, hemorrhagic, Hypertensive emergency Prescriptions: No Action cholecalciferol (vitamin D3) 1,250 mcg (50,000 unit) capsule 1,250 mcg PO QWEEK spironolactone 25 mg tablet 25 mg PO DAILY Qty: 90 3RF amlodipine-benazepril 10-20 mg capsule 1 cap PO QHS Qty: 90 3RF metoprolol tartrate 25 mg tablet 25 mg PO BID Qty: 180 3RF aspirin [Adult Aspirin Regimen] 81 mg tablet,delayed release (DR/EC) 81 mg PO DAILY Qty: 90 3RF pravastatin 40 mg tablet 40 mg PO QHS Qty: 90 3RF bupropion HCl 150 mg tablet sustained-release 12 hr 150 mg PO BID 30 Days Qty: 60 0RF glimepiride 4 mg tablet 4 mg PO DAILY Qty: 30 0RF Primary Care Provider: Krista Schmidt Referrals: Krista Schmidt MD [Primary Care Provider] - Disposition Disposition: Acute Care Hospital What to do if you have Problems For any increased pain, shortness of breath, bleeding, nausea or vomiting, chestpain, or any unexpected problems, contact your Primary Care Provider. Call [facility] ([phone]) or report to the closest Emergency Room. Call 911 if necessary. 07/22/22 0810 <Electronically signed by Jong Jalloh MD> Cosigner Signature (if applicable): CC: Dr. Krista Schmidt MD ~ Signed [facility] Work Phone: Evaluation note* Diagnosis Onset Date Resolution Status Cardiomyopathy acute Hypertension chronic [facility] Work Phone: Evaluation note* Diagnosis Onset Date Resolution Status Folliculitis acute [facility] Work Phone: Evaluation note* Diagnosis Basal ganglia hemorrhage- Primary Intracerebral hemorrhage Cerebrovascular accident (CVA), unspecified mechanism Cryptogenic stroke Unspecified cerebral artery occlusion with cerebral infarction PFO (patent foramen ovale) Ostium secundum type atrial septal defect Type 2 Diabetes (A1C > 6.49%) Hemorrhagic stroke Intracerebral hemorrhage Stroke Unspecified cerebral artery occlusion with cerebral infarction Electrolyte disorder (K, Cl, or Na) Electrolyte and fluid disorders not elsewhere classified [facility] Diagnosis PFO (patent foramen ovale)- Primary Ostium secundum type atrial septal defect Cerebrovascular accident (CVA), unspecified mechanism Essential hypertension, benign Hyperlipidemia, unspecified hyperlipidemia type [facility] Diagnosis Hospital discharge follow-up- Primary Other follow-up examination detention (current) use of antithrombotics/antiplatelets Nihss score 1 History of stroke Transient ischemic attack (TIA), and cerebral infarction without residual deficits [facility] Diagnosis Onset Date Resolution Status Acute bronchitis acute Cough acute [facility] Work Phone: Evaluation note* Diagnosis PFO (patent foramen ovale)- Primary Ostium secundum type atrial septal defect Cerebrovascular accident (CVA), unspecified mechanism Essential hypertension Unspecified essential hypertension Mixed hyperlipidemia [facility] Diagnosis PFO (patent foramen ovale)- Primary Ostium secundum type atrial septal defect Cerebrovascular accident (CVA), unspecified mechanism Essential hypertension, benign Hyperlipidemia, unspecified hyperlipidemia type [facility] Diagnosis S/P patent foramen ovale closure- Primary Other postprocedural status PFO (patent foramen ovale) Ostium secundum type atrial septal defect Cerebrovascular accident (CVA), unspecified mechanism S/P percutaneous patent foramen ovale closure Other postprocedural status PFO (patent foramen ovale) Ostium secundum type atrial septal defect Cerebrovascular accident (CVA), unspecified mechanism [facility] Diagnosis PFO (patent foramen ovale) Ostium secundum type atrial septal defect Cerebrovascular accident (CVA), unspecified mechanism S/P patent foramen ovale closure Other postprocedural status [facility] Diagnosis PFO (patent foramen ovale)- Primary Ostium secundum type atrial septal defect S/P patent foramen ovale closure Other postprocedural status Essential hypertension, benign Hyperlipidemia, unspecified hyperlipidemia type 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 Cerebrovascular accident (CVA), unspecified mechanism [facility] Diagnosis Left ventricular aneurysm Aneurysm of heart (wall) [facility] Diagnosis PFO (patent foramen ovale)- Primary Ostium secundum type atrial septal defect S/P patent foramen ovale closure Other postprocedural status Cerebrovascular accident (CVA), unspecified mechanism Essential hypertension Unspecified essential hypertension Hyperlipidemia, unspecified hyperlipidemia type Cardiomyopathy, unspecified type [facility] Diagnosis S/P percutaneous patent foramen ovale closure- Primary Other postprocedural status PFO (patent foramen ovale) Ostium secundum type atrial septal defect S/P patent foramen ovale closure Other postprocedural status Obesity (BMI 30.0-34.9) Obesity, unspecified Electrolyte disorder (K, Cl, or Na) Electrolyte and fluid disorders not elsewhere classified Hemorrhagic stroke Intracerebral hemorrhage [facility] Diagnosis Cardiomyopathy, unspecified type Cardiomyopathy, unspecified type [facility]* Diagnosis Atherosclerosis of la posta coronary artery of [place] post[place] heart with angina pectoris- Primary Coronary artery disease involving [place] 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 CAD (coronary artery disease), [place] coronary artery Coronary atherosclerosis of [place] coronary artery [facility] Diagnosis Atherosclerosis of [place] post[place] coronary artery of [place] heart with angina pectoris- Primary Coronary artery disease involving [place] 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 CAD (coronary artery disease), [place] coronary artery Coronary atherosclerosis of [place] coronary artery [facility] Diagnosis CAD (coronary artery disease)- Primary Coronary atherosclerosis of unspecified type of vessel, [place] post[place] or graft Atherosclerosis of [place] coronary artery of [place] heart with angina pectoris CAD (coronary artery disease), [place] coronary artery Coronary atherosclerosis of [place] coronary artery S/P CABG x 3 Postsurgical aortocoronary bypass status Acute post-operative pain Type 2 diabetes mellitus with hyperglycemia, without long-term current use of insulin [facility] Diagnosis Status post cardiac surgery- Primary [facility] Diagnosis S/P CABG x 3 Postsurgical aortocoronary bypass status [facility] assessment information available [facility] Work Phone: Evaluation note* Diagnosis S/P percutaneous patent foramen ovale closure- Primary Other postprocedural status PFO (patent foramen ovale) Ostium secundum type atrial septal defect S/P patent foramen ovale closure Other postprocedural status Obesity (BMI 30.0-34.9) Obesity, unspecified Electrolyte disorder (K, Cl, or Na) Electrolyte and fluid disorders not elsewhere classified Hemorrhagic stroke Intracerebral hemorrhage Type 2 diabetes mellitus with hyperglycemia, without long-term current use of insulin [facility] Diagnosis PFO (patent foramen ovale)- Primary Ostium secundum type atrial septal defect S/P patent foramen ovale closure Other postprocedural status Cerebrovascular accident (CVA), unspecified mechanism Coronary artery disease involving [place] posta coronary artery of [place] heart, unspecified whether angina present S/P CABG (coronary artery bypass graft) Postsurgical aortocoronary bypass status Essential hypertension Unspecified essential hypertension Cardiomyopathy, unspecified type Hyperlipidemia, unspecified hyperlipidemia type [facility]* Attachments The following attachments cannot be sent through Care Everywhere. * [facility] Attachments The following attachments cannot be sent through Care Everywhere. * Cardiac Cath [facility] - Wrist [facility] (narrative)* Consultation (Routine) - New Request Specialty Diagnoses / Procedures Referred By Contac t Referred To Contact Neurology Diagnoses Basal ganglia hemorrhage Laurie Tellez, PROJECT FACILITATOR-SUPERVISOR [employer] [address] [facility] [address] [place] [address] Laurie Tellez APRN-SUPERVISOR [employer] [address] [place] [address] Referral ID Status Reason Start Date Expiration Date V isits Requested Visits Authorized [id number] New Request 07/25/2022 08/19/2023 1 1 * Consultation (Routine) - New Request Specialty Diagnoses / Procedures Referred By Contact Referred To Contact Cardiovascular Medicine Diagnoses PFO (patent foramen ovale) Mariano Cee MD [address] [place] [address] Jamal Turcios MD [address] [facility] [place] [address] Referral ID Status Reason Start Date Expiration Date V isits Requested Visits Authorized [id number] New Request 07/24/2022 08/18/2023 1 1 Scheduling Instructions Please schedule this patient in the Department of Cardiology. * Radiology (Routine) - New Request Specialty Diagnoses / Procedures Referred By Contac t Referred To Contact Diagnoses Cerebrovascular accident (CVA), unspecified mechanism Procedures MOBILE CARDIAC TELEMETRY Mariano Cee MD [address] [place] [address] Referral ID Status Reason Start Date Expiration Date V isits Requested Visits Authorized [id number] New Request 07/23/2022 08/17/2023 1 1 * (Routine) Specialty Diagnoses / Procedures Referred By Contac t Referred To Contact [address] [place] [address] Referral ID Status Reason Start Date Expiration Date Visits Re quested Visits Authorized * (Routine) - New Request Specialty Diagnoses / Procedures Referred By Contac t Referred To Contact Procedures NO PHARMACOLOGICAL DVT PROPHYLAXIS Mason MIRA Kemp [address] [place] [address] Referral ID Status Reason Start Date Expiration Date V isits Requested Visits Authorized [id number] New Request 07/22/2022 08/16/2023 1 1 * (Routine) - New Request Specialty Diagnoses / Procedures Referred By Contac t Referred To Contact Procedures DVT/VTE RISK ASSESSMENT Umair Cuevas APRN-CNP [address] [place] [phone] Referral ID Status Reason Start Date Expiration Date V isits Requested Visits Authorized [id number] New Request 07/22/2022 08/16/2023 1 1 [facility]ative)No reason for referral information [facility]WVan [facility] Work Phone: Reason for visit Narrative* Auth/Cert Specialty Diagnoses / Procedures Referred By Contac t Referred To Contact Diagnoses Cardiomyopathy, unspecified type Cardiomyopathy, unspecified type [I42.9] Procedures UT CATH PLMT L HRT & ARTS W/NJX & ANGIO IMG S&I CORONARY ANGIOGRAM WITH LEFT HEART CATH Jamal Turcios MD [address] [place] [address] [facility] [address] [place] [address] Referral ID Status Reason Start Date Expiration Date Visits Re quested Visits Authorized [id number] [address] [facility] for visit Narrative* Auth/Cert Specialty Diagnoses / Procedures Referred By Caitlyn melgar Referred To Contact Diagnoses CAD (coronary artery disease), [place] posta coronary artery CAD (coronary artery disease), [place] coronary artery [I25.10] Procedures UT CABG W/ARTERIAL GRAFT THREE ARTERIAL GRAFTS CABG W/ ARTERY GRAFT OPEN Jacky Meyer MD, PhD [address] [place] [phone] [facility] [address] [place] [address] Referral ID Status Reason Start Date Expiration Date Visits Re quested Visits Authorized [id number] 1 1 [facility] Narrative* Radiology (Routine) - Closed Specialty Diagnoses / Procedures Referred By Caitlyn melgar Referred To Contact Echocardiography Diagnoses PFO (patent foramen ovale) S/P patent foramen ovale closure Procedures ECHOCARDIOGRAM UT ECHO TTHRC R-T 2D W/WOM-MODE COMPL SPEC&COLR D Jamal Turcios MD [address] [place] [phone] Phone: tel: fax: [facility] [address] [place] [address] Phone: tel: fax: Referral ID Status Reason Start Date Expiration Date Visits Re quested Visits Authorized [id number] Closed 03/03/2024 03/28/2025 1 1 [facility] Chief Complaint and Reason for Visit Chief Complaint 3 M FU Reason for Visit Cardiomyopathy Hypertension Chief Complaint LUMP IN PERITONEAL A MIMI Reason for Visit Folliculitis Chief Complaint LUMP IN PERITONEAL A MIMI neuro Reason for Visit Folliculitis Chief Complaint COUGHING, SORE THROA T CHEST DISCOMFORT/CONCERN WITH BRONCHITIS STAT Reason for Visit Acute bronchitis Cough Chief Complaint Admit Date S/P CABG June 14, 2024 1 :53pm s/p CABG June 20, 2024 3 :23pm CXR June 22, 2024 1 0:47am s/p CABG July 22, 2024 3:15pm s/p CABG August 17, 2024 3:1 5pm Chief Complaint Admit Date S/P CABG June 14, 2024 1 :53pm s/p CABG June 20, 2024 3 :23pm CXR June 22, 2024 1 0:47am s/p CABG July 22, 2024 3:15pm s/p CABG August 19, 2024 3:1 5pm Chief Complaint Admit Date S/P CABG June 14, 2024 1 :53pm s/p CABG June 20, 2024 3 :23pm CXR June 22, 2024 1 0:47am s/p CABG July 22, 2024 3:15pm s/p CABG August 19, 2024 3:1 5pm s/p CABG August 29, 2024 3:15 pm Chief Complaint Admit Date s/p CABG July 22, 2024 3:15pm s/p CABG August 19, 2024 3:1 5pm s/p CABG September 21, 2024 3:1 5pm s/p CABG September 30, 2024 3:15pm Advance Directives No Advanced Directives Records Found Advance Directive Response Recorded Date/ Time Living Will No July 17, 2 022 5:43am Power of Salt Operator No July 17, 2021 5:43am Advance Directive Response Recorded Date/ Time Living Will No July 17, 2 022 4:43am Power of Salt Operator No July 17, 2021 4:43am Advance Directive Response Recorded Date/ Time Living Will No July 22, 2 023 6:12am Power of Salt Operator No July 22, 2022 6:12am Latest Code Status on File Code Status Date Activated Date Inactivated Comments Full Code 07/24/2022 12:08 PM Latest Code Status on File Code Status Date Activated Date Inactivated Comments Full Code 07/24/2022 12:08 PM Advance Directive Response Recorded Date/ Time Living Will No July 22, 2 023 7:12am Power of Salt Operator No July 22, 2022 7:12am Latest Code Status on File Code Status Date Activated Date Inactivated Comments Full Code 08/05/2023 2:22 PM Code Status History Code Status Date Activated Date Inactivated Comments Full Code 07/24/2022 12:08 PM 08/05/2023 2:22 PM Latest Code Status on File Code Status Date Activated Date Inactivated Comments Full Code 08/05/2023 2:22 PM Code Status History Code Status Date Activated Date Inactivated Comments Full Code 07/24/2022 12:08 PM 08/05/2023 2:22 PM Date Activated Date Inactivated Comments 08/05/2023 2:22 PM Date Activated Date Inactivated Comments 07/24/2022 12:08 PM 08/05/2023 2:22 PM Date Activated Date Inactivated Comments 08/05/2023 2:22 PM Date Activated Date Inactivated Comments 07/24/2022 12:08 PM 08/05/2023 2:22 PM Date Activated Date Inactivated Comments 04/26/2024 12:48 PM Date Activated Date Inactivated Comments 08/05/2023 2:22 PM 04/26/2024 12:48 PM Date Activated Date Inactivated Comments 07/24/2022 12:08 PM 08/05/2023 2:22 PM Date Activated Date Inactivated Comments 04/26/2024 12:48 PM Date Activated Date Inactivated Comments 08/05/2023 2:22 PM 04/26/2024 12:48 PM Date Activated Date Inactivated Comments 07/24/2022 12:08 PM 08/05/2023 2:22 PM Advance Directive Response Recorded Date/ Time Advance Directives on File No 2024 3:09pm Living Will No June 14 3:09pm Do you have a Healthcare Power of Salt Operator? No June 14, 2024 3:09pm Reason for Referral Specialty Diagnoses / Procedures Referred By Contac t Referred To Contact Diagnoses PFO (patent foramen ovale) Cerebrovascular accident (CVA), unspecified mechanism Procedures CASE REQUEST - CARDIAC CATH Jamal Turcios MD [address] [facility] [place] [address] Referral ID Status Reason Start Date Expiration Date V isits Requested Visits Authorized [id number] New Request 07/02/2023 07/26/2024 1 1 Specialty Diagnoses / Procedures Referred By Contac t Referred To Contact Procedures ECG Jyoti Schmidt, PROJECT FACILITATOR-SUPERVISOR [employer]ING [address] [place] [address] Referral ID Status Reason Start Date Expiration Date V isits Requested Visits Authorized [id number] New Request 08/05/2023 08/29/2024 1 1 Specialty Diagnoses / Procedures Referred By Contac t Referred To Contact Procedures ECG Jamal Turcios MD [address] [place] [phone] Referral ID Status Reason Start Date Expiration Date V isits Requested Visits Authorized [id number] New Request 08/05/2023 08/29/2024 1 1 Specialty Diagnoses / Procedures Referred By Contac t Referred To Contact Echocardiography Diagnoses PFO (patent foramen ovale) Cerebrovascular accident (CVA), unspecified mechanism S/P patent foramen ovale closure Procedures ECHOCARDIOGRAM UT ECHO HEART XTHORACIC,COMPLETE W DOPPLER Jamal Turcios MD [address] [place] [phone] [place] [address] Referral ID Status Reason Start Date Expiration Date Visits Re quested Visits Authorized [id number] Closed 08/05/2023 08/29/2024 1 1 Specialty Diagnoses / Procedures Referred By Caitlyn t Referred To Contact Diagnoses PFO (patent foramen ovale) S/P patent foramen ovale closure Procedures ECHOCARDIOGRAM UT ECHO TTHRC R-T 2D W/WOM-MODE COMPL SPEC&COLR D Jamal Turcios MD [address] [place] [phone] Referral ID Status Reason Start Date Expiration Date V isits Requested Visits Authorized [id number] New Request 10/08/2023 11/01/2024 1 1 Specialty Diagnoses / Procedures Referred By Caitlyn t Referred To Contact Diagnoses Left ventricular aneurysm Procedures MRI CARDIAC WITH CONTRAST W/VELOCITY FLOW MAP UT CARDIAC MRI MORPHOLOGY & FUNCTION W/O CONTRAST UT CHG CARDIAC MRI FOR VELOCITY FLOW MAPPING Jamal Turcios MD [address] [place] [phone] Referral ID Status Reason Start Date Expiration Date Visits Re quested Visits Authorized [id number] Denied 08/06/2023 08/30/2024 1 0 Specialty Diagnoses / Procedures Referred By Contac t Referred To Contact Diagnoses Cardiomyopathy, unspecified type Procedures CASE REQUEST - CARDIAC CATH Jamal Turcios MD [address] [place] [address] Referral ID Status Reason Start Date Expiration Date V isits Requested Visits Authorized [id number] New Request 03/03/2024 03/28/2025 1 1 Referral ID Status Reason Start Date Expiration Date V isits Requested Visits Authorized [id number] New Request 03/03/2024 03/28/2025 1 1 Specialty Diagnoses / Procedures Referred By Contac t Referred To Contact Echocardiography Diagnoses PFO (patent foramen ovale) S/P patent foramen ovale closure Procedures ECHOCARDIOGRAM UT ECHO TTHRC R-T 2D W/WOM-MODE COMPL SPEC&COLR D Jamal Turcios MD [address] [place] [address] Echocardiography [place] [address] [phone] Referral ID Status Reason Start Date Expiration Date Visits Re quested Visits Authorized [id number] Closed 10/08/2023 11/01/2024 1 1 Referral ID Status Reason Start Date Expiration Date V isits Requested Visits Authorized [id number] New Request 03/29/2024 04/23/2025 1 1 Specialty Diagnoses / Procedures Referred By Contac t Referred To Contact Diagnoses Coronary artery disease involving la 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 Procedures CT CHEST WITHOUT CONTRAST CHG DIAGNOSTIC COMPUTED TOMOGRAPHY THORAX W/O CNTRST Yaw Johnson, PROJECT FACILITATOR-SUPERVISOR FLESHING [address] [address] Referral ID Status Reason Start Date Expiration Date Visits Re quested Visits Authorized [id number] Closed 04/05/2024 04/30/2025 1 1 Specialty Diagnoses / Procedures Referred By Contac t Referred To Contact Peripheral Vascular Diagnoses Coronary artery disease involving la 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 Procedures VASC DUPLEX ARTERIAL RADIAL MAPPING-LEFT Yaw Johnson APRN-SUPERVISOR FLESHING [address] [place], [place] [phone] Vascular Surg Ultrasound [place] [address] [place] [phone] Referral ID Status Reason Start Date Expiration Date Visits Re quested Visits Authorized [id number] Closed 04/05/2024 04/30/2025 1 1 Specialty Diagnoses / Procedures Referred By Contac t Referred To Contact Peripheral Vascular Diagnoses Coronary artery disease involving la 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 Procedures VASC DUPLEX CAROTID BILATERAL UT DUPLEX SCAN EXTRACRANIAL ART COMPL BI STUDY Yaw Johnson APRN-SUPERVISOR FLESHING [address] [place] [address] Vascular Surg Ultrasound [place] [address] [place] [phone] Referral ID Status Reason Start Date Expiration Date Visits Re quested Visits Authorized [id number] Closed 04/05/2024 04/30/2025 1 1 Specialty Diagnoses / Procedures Referred By Contac t Referred To Contact Peripheral Vascular Diagnoses Coronary artery disease involving la 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 Procedures VASC DIGIT PRESSURE HAND UT NON-INVASIVE PHYSIOLOGIC STUDY EXTREMITY 3 LEVLS Yaw Johnson APRN-SUPERVISOR FLESHING [address] [place], [place] [phone] Vascular Surg Ultrasound [place] [address] [facility] [address] [place] [phone] Referral ID Status Reason Start Date Expiration Date Visits Re quested Visits Authorized [id number] Closed 04/05/2024 04/30/2025 1 1 Specialty Diagnoses / Procedures Referred By Contac t Referred To Contact Peripheral Vascular Diagnoses Coronary artery disease involving la 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 Procedures VASC DUPLEX VEIN MAPPING EXTREMITY LOWER BILATERAL UT DUP-SCAN XTR VEINS COMPLETE BILATERAL STUDY aYw Johnson APRN-SUPERVISOR FLESHING [address] [facility] [place] [address] Vascular Surg Ultrasound [place] [address] [place] [address] Referral ID Status Reason Start Date Expiration Date Visits Re quested Visits Authorized [id number] Closed 04/05/2024 04/30/2025 1 1 Specialty Diagnoses / Procedures Referred By Contmaggie t Referred To Contact Cardiac Rehabilitation Diagnoses S/P CABG x 3 Procedures UT OUTPATIENT CARDIAC REHAB W/CONT ECG MONITORING Jacky Meyer MD, PhD [address] [place] [phone] Referral ID Status Reason Start Date Expiration Date V isits Requested Visits Authorized [id number] New Request 04/28/2024 05/23/2025 1 1 Scheduling Instructions [facility] Cardiac Rehab Program Cardiac Rehab at [address] [address] Cardiac Rehab class days offered at this location: Thursday Cardiac Rehab class times offered at this location: 7:30am - 8:30am 9:00am - 10:00am 10:30am - 11:30am 12:00pm - 1:00pm 2:00pm - 3:00pm 3:30pm - 4:30pm 5:00pm - 6:00pm [facility] Cardiac Rehab Program [address] [place] [address], [address] [place] [address] Cardiac Rehab class days offered at this location: Thursday Cardiac Rehab class times offered at this location: 7:45am - 8:45am 8:45am - 9:45am 9:45am - 10:45am 10:45am - 11:45am 3:00pm - 4:00pm Specialty Diagnoses / Procedures Referred By Contmaggie t Referred To Contact Social Work Diagnoses S/P CABG x 3 Zafar Haynes PA-C [address] [place] [phone] Referral ID Status Reason Start Date Expiration Date V isits Requested Visits Authorized [id number] New Request 04/27/2024 05/22/2025 1 1 Specialty Diagnoses / Procedures Referred By Contac t Referred To Contact Procedures PLATELET MONITORING PER PROTOCOL Jacky Meyer MD, PhD [address] [place] [phone] Referral ID Status Reason Start Date Expiration Date V isits Requested Visits Authorized [id number] New Request 04/26/2024 05/21/2025 1 1 Specialty Diagnoses / Procedures Referred By Contac t Referred To Contact [facility] [address] [place] [phone] Referral ID Status Reason Start Date Expiration Date Visits Re quested Visits Authorized Specialty Diagnoses / Procedures Referred By Contac t Referred To Contact Diagnoses Status post cardiac surgery Procedures ECG Christal Smith, PROJECT FACILITATOR-SUPERVISOR FLESHING [address] [place] [phone] Referral ID Status Reason Start Date Expiration Date V isits Requested Visits Authorized [id number] New Request 05/27/2024 06/21/2025 1 1 Summary Purpose Family History No Family History Records FoundNo Family History Records FoundNo Family History Records Found Additional Source Comments Goals (unrecognized section and content) Goals may be documented in a n alternate sectionGoals may be documented in an alternate sectionGoals may be documented in an alternate sectionGoals may be documented in an alternate sectionGoals may be documented in an alternate sectionGoals may be documented in an alternate sectionGoals may be documented in an alternate sectionGoals may be documented in an alternate sectionGoals may be documented in an alternate section Care Teams (unrecognized sec tion and content) Team Status: Active Member Role Status Dates Dr. Krista Schmidt MD Family Provider Active Dr. Krista Schmidt MD Primary Care Provider Active Team Status: Inactive Member Role Status Dates Dr. Krista Schmidt MD Primary Care Provider, Referring Marylu henley Active Joseph SIMMS, PA Attending Provider Active Team Status: Inactive Member Role Status Dates Dr. Krista Schmidt MD Primary Care Provider, Attending P rovider Active Team Status: Inactive Member Role Status Dates Dr. Krista Schmidt MD Primary Care Provider Active Dr. Jong Jalloh MD Emergency Provider Active Lighting Engineer Relationship Specialty Start Date End Date Krista Schmidt MD [address] [place], [place] [phone] PCP - General Family Medicine 07/22/22 Lighting Engineer Relationship Specialty Start Date End Date Krista Schmidt MD [address] [place], [place] [phone] PCP - General Family Medicine 07/22/22 Lighting Engineer Relationship Specialty Start Date End Date Krista Schmidt MD [address] [place], [place] [phone] PCP - General Family Medicine 07/22/22 Team Status: Inactive Member Role Status Dates Dr. Krista Schmidt MD Primary Care Provider, Referring P rovider Active Robert SIMMS PA Attending Provider Active Team Status: Inactive Member Role Status Dates Dr. Krista Schmidt MD Primary Care Provider Active Robert SIMMS PA Attending Provider, Referring Pr ovider Active Lighting Engineer Relationship Specialty Start Date End Date Krista Schmidt MD [address] [place] [address] PCP - General Family Medicine 07/22/22 Lighting Engineer Relationship Specialty Start Date End Date Krista Schmidt MD [address] [place] [address] PCP - General Family Medicine 07/22/22 Lighting Engineer Relationship Specialty Start Date End Date Krista Schmidt MD [address] [place] [address] PCP - General Family Medicine 07/22/22 Lighting Engineer Relationship Specialty Start Date End Date Krista Schmidt MD [address] [place] [address] PCP - General Family Medicine 07/22/22 Lighting Engineer Relationship Specialty Start Date End Date Krista Schmidt MD [address] [place] [address] PCP - General Family Medicine 07/22/22 Lighting Engineer Relationship Specialty Start Date End Date Krista Schmidt MD [address] [place] [address] PCP - General Family Medicine 07/22/22 Lighting Engineer Relationship Specialty Start Date End Date Krista Schmidt MD [address] [place] [address] PCP - General Family Medicine 07/22/22 Lighting Engineer Relationship Specialty Start Date End Date Krista Schmidt MD [address] [place] [address] PCP - General Family Medicine 07/22/22 Lighting Engineer Relationship Specialty Start Date End Date Krista Schmidt MD [address] [place] [address] PCP - General Family Medicine 07/22/22 Lighting Engineer Relationship Specialty Start Date End Date Krista Schmidt MD [address] [place] [address] PCP - General Family Medicine 07/22/22 Lighting Engineer Relationship Specialty Start Date End Date Krista Schmidt MD [address] [place] [address] PCP - General Family Medicine 07/22/22 Lighting Engineer Relationship Specialty Start Date End Date Krista Schmidt MD [address] [place] [address] PCP - General Family Medicine 07/22/22 Jacky Meyer MD, PhD [address] [place] [address] Cardiac Surgery 04/26/24 Jamal Turcios MD 1800 [facility] [address] [place] [phone] Valve Mechanic Interventional Cardiology 04/26/24 Lighting Engineer Relationship Specialty Start Date End Date Krista Schmidt MD [address] [place] [address] PCP - General Family Medicine 07/22/22 Jacky Meyer MD, PhD [address] [place] [phone] Cardiac Surgery 04/26/24 Jamal Turcios MD 1800 [facility] [address] [place] [phone] Valve Mechanic Interventional Cardiology 04/26/24 Lighting Engineer Relationship Specialty Start Date End Date Krista Schmidt MD [address] [place], [place] [phone] PCP - General Family Medicine 07/22/22 Jacky Meyer MD, PhD [address] [place] [address] Cardiac Surgery 04/26/24 Jamal Turcios MD [address] [address] Valve Mechanic Interventional Cardiology 04/26/24 Lighting Engineer Relationship Specialty Start Date End Date Krista Schmidt MD [address] [place] [address] PCP - General Family Medicine 07/22/22 Jacky Meyer MD, PhD [address] [place] [address] Cardiac Surgery 04/26/24 Jamal Turcios MD [address] [phone] Valve Mechanic Interventional Cardiology 04/26/24 Team Status: Active Member Role Status Dates Dr. Krista Schmidt MD Primary Care Provider Active Team Status: Inactive Member Role Status Dates Dr. Krista Schmidt MD Primary Care Provider Active Start: June 14, 2024 End: June 14, 2024 Jacky Meyer MD Attending Provider Active Sta rt: June 14, 2024 End: June 14, 2024 Jacky Meyer MD Referring Provider Active Sta rt: June 14, 2024 End: June 14, 2024 Team Status: Inactive Member Role Status Dates Dr. Krista Schmidt MD Primary Care Provider Active Start: June 20, 2024 End: June 24, 2024 Jacky Meyer MD Attending Provider Active Sta rt: June 20, 2024 End: June 24, 2024 Jacky Meyer MD Referring Provider Active Sta rt: June 20, 2024 End: June 24, 2024 Team Status: Inactive Member Role Status Dates Dr. Krista Schmidt MD Primary Care Provider Active Start: June 22, 2024 End: June 22, 2024 Ham Barkley FRANCISCO, TODDLER CAREGIVER-C Attending Provider Active Start: June 22, 2024 End: June 22, 2024 Ham McMorrow TODDLER CAREGIVER, TODDLER CAREGIVER-C Referring Provider Active Start: June 22, 2024 End: June 22, 2024 Team Status: Inactive Member Role Status Dates Dr. Krista Schmidt MD Primary Care Provider Active Start: June 24, 2024 End: June 24, 2024 THIERRY EHRNANDEZ TODDLER CAREGIVER-C Attending Provider Active Start: June 24, 2024 End: June 24, 2024 THIERRY HERNANDEZ TODDLER CAREGIVER-C Referring Provider Active Start: June 24, 2024 End: June 24, 2024 Team Status: Inactive Member Role Status Dates Dr. Krista Schmidt MD Primary Care Provider Active Start: July 22, 2024 End: July 22, 2024 Jacky Meyer MD Attending Provider Active Sta rt: July 22, 2024 End: July 22, 2024 Jacky Meyer MD Referring Provider Active Sta rt: July 22, 2024 End: July 22, 2024 Team Status: Inactive Member Role Status Dates Dr. Krista Schmidt MD Primary Care Provider Active Start: August 13, 2024 End: August 13, 2024 THIERRY HERNANDEZ TODDLER CAREGIVER-C Attending Provider Active Start: August 13, 2024 End: August 13, 2024 THIERRY HERNANDEZ TODDLER CAREGIVER-C Referring Provider Active Start: August 13, 2024 End: August 13, 2024 Team Status: Active Member Role Status Dates Dr. Krista Schmidt MD Primary Care Provider Active Start: August 17, 2024 Jacky Meyer MD Attending Provider Active Sta rt: August 17, 2024 Jacky Meyer MD Referring Provider Active Sta rt: August 17, 2024 Team Status: Inactive Member Role Status Dates Dr. Krista Schmidt MD Primary Care Provider Active Start: August 19, 2024 End: August 22, 2024 Jacky Meyer MD Attending Provider Active Sta rt: August 19, 2024 End: August 22, 2024 Jacky Meyer MD Referring Provider Active Sta rt: August 19, 2024 End: August 22, 2024 Team Status: Inactive Member Role Status Dates Dr. Krista Schmidt MD Primary Care Provider Active Start: August 26, 2024 End: August 26, 2024 THIERRY HERNANDEZ TODDLER CAREGIVER-C Attending Provider Active Start: August 26, 2024 End: August 26, 2024 Team Status: Active Member Role Status Dates Dr. Krista Schmidt MD Primary Care Provider Active Start: August 29, 2024 Jacky Meyer MD Attending Provider Active Sta rt: August 29, 2024 Jacky Meyer MD Referring Provider Active Sta rt: August 29, 2024 Lighting Engineer Relationship Specialty Start Date End Date Krista Schmidt MD PCP - General Family Medicine 07/22/22 Jacky Meyer MD, PhD [address] [place] [phone] Cardiac Surgery 04/26/24 Jamal Turcios MD [address] [place] [phone] Valve Mechanic Interventional Cardiology 04/26/24 Lighting Engineer Relationship Specialty Start Date End Date Krista Schmidt MD PCP - General Family Medicine 07/22/22 Jacky Meyer MD, PhD [address] [place] [phone] Cardiac Surgery 04/26/24 Jamal Turcios MD [address] [place] [phone] Valve Mechanic Interventional Cardiology 04/26/24 Team Status: Inactive Member Role Status Dates Dr. Krista Schmidt MD Primary Care Provider Active Start: September 21, 2024 End: September 21, 2024 Jacky Meyer MD Attending Provider Active Sta rt: September 21, 2024 End: September 21, 2024 Jacky Meyer MD Referring Provider Active Sta rt: September 21, 2024 End: September 21, 2024 Team Status: Inactive Member Role Status Dates Dr. Krista Schmidt MD Primary Care Provider Active Start: September 30, 2024 End: October 22, 2024 Jacky Meyer MD Attending Provider Active Sta rt: September 30, 2024 End: October 22, 2024 Jacky Meyer MD Referring Provider Active Sta rt: September 30, 2024 End: October 22, 2024 Reason for Visit (unrecogniz ed section and content) Reason Comments Extremity Weakness Specialty Diagnoses / Procedures Referred By Contac t Referred To Contact Diagnoses Basal ganglia hemorrhage Level A Hemorrhagic, Mariano Cee MD [address] [place] [address] [facility] [address] [place] [address] Referral ID Status Reason Start Date Expiration Date Visits Re quested Visits Authorized [id number] 1 1 Reason Comments Establish Care Eval for PFO associa tamra stroke Specialty Diagnoses / Procedures Referred By Contact Referred To Contact Cardiovascular Medicine Diagnoses PFO (patent foramen ovale) Mariano Cee MD [address] [place] [address] Jamal Turcios MD [address] [place] [address] Referral ID Status Reason Start Date Expiration Date V isits Requested Visits Authorized [id number] New Request 07/24/2022 08/18/2023 1 1 Reason Comments Follow-up Reason Comments Follow-up 8 month follow up fo r PFO, pt states he is feeling well heart davalos. He has a new dexcom that he is using. Reason Comments Follow-up Pt here for a follow up. Last saw Marion 06/12/23 and adjusted his BP medications. He denies any cardiac issues at this time. Specialty Diagnoses / Procedures Referred By Contmaggie t Referred To Contact Diagnoses PFO (patent foramen ovale) Cerebrovascular accident (CVA), unspecified mechanism PFO (patent foramen ovale) [Q21.12] Cerebrovascular accident (CVA), unspecified mechanism [I63.9] Procedures UT PERC CLOS,[facility] W/IMPL PFO CLOSURE Jamal Turcios MD [address] [place] [address] [facility] [address] [place] [address] Referral ID Status Reason Start Date Expiration Date Visits Re quested Visits Authorized [id number] 1 1 Specialty Diagnoses / Procedures Referred By Contac t Referred To Contact Echocardiography Diagnoses PFO (patent foramen ovale) Cerebrovascular accident (CVA), unspecified mechanism S/P patent foramen ovale closure Procedures ECHOCARDIOGRAM UT ECHO HEART XTHORACIC,COMPLETE W DOPPLER Jamal Turcios MD [address] [place] [address] [address] [place] [address] Referral ID Status Reason Start Date Expiration Date Visits Re quested Visits Authorized [id number] Closed 08/05/2023 08/29/2024 1 1 Reason Onset Date Comments Results 09/10/2023 Reason Comments Follow-up HFU after PFO closur e 08/05/23 Specialty Diagnoses / Procedures Referred By Caitlyn t Referred To Contact Diagnoses Left ventricular aneurysm Procedures MRI CARDIAC WITH CONTRAST W/VELOCITY FLOW MAP UT CARDIAC MRI MORPHOLOGY & FUNCTION W/O CONTRAST UT CHG CARDIAC MRI FOR VELOCITY FLOW MAPPING Jamal Turcios MD [address] [place] [address] Referral ID Status Reason Start Date Expiration Date Visits Re quested Visits Authorized [id number] Denied 08/06/2023 08/30/2024 1 0 Reason Onset Date Comments Results 12/16/2023 Reason Comments Follow-up 8 mo follow-upPt sta [place]ion no concerns Specialty Diagnoses / Procedures Referred By Caitlyn t Referred To Contact Echocardiography Diagnoses PFO (patent foramen ovale) S/P patent foramen ovale closure Procedures ECHOCARDIOGRAM UT ECHO TTHRC R-T 2D W/WOM-MODE COMPL SPEC&COLR D Jewel Turciosstantinos D, MD [address] [place] [address] Echocardiography [place] [address] [facility] [address] [place] [phone] Referral ID Status Reason Start Date Expiration Date Visits Re quested Visits Authorized [id number] Closed 10/08/2023 11/01/2024 1 1 Specialty Diagnoses / Procedures Referred By Contac t Referred To Contact Diagnoses Coronary artery disease involving la 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 Procedures CT CHEST WITHOUT CONTRAST CHG DIAGNOSTIC COMPUTED TOMOGRAPHY THORAX W/O CNTRST Yaw Johnson APRN-SUPERVISOR FLESHING [address] [place] [phone] Referral ID Status Reason Start Date Expiration Date Visits Re quested Visits Authorized [id number] Closed 04/05/2024 04/30/2025 1 1 Specialty Diagnoses / Procedures Referred By Contac t Referred To Contact Peripheral Vascular Diagnoses Coronary artery disease involving la 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 Procedures VASC DUPLEX ARTERIAL RADIAL MAPPING-LEFT Yaw Johnson APRN-SUPERVISOR FLESHING [address] [place] [address] Vascular Surg Ultrasound [place] [address] [facility] [address] [place] [address] Referral ID Status Reason Start Date Expiration Date Visits Re quested Visits Authorized [id number] Closed 04/05/2024 04/30/2025 1 1 Specialty Diagnoses / Procedures Referred By Contac t Referred To Contact Peripheral Vascular Diagnoses Coronary artery disease involving la 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 Procedures VASC DUPLEX CAROTID BILATERAL UT DUPLEX SCAN EXTRACRANIAL ART COMPL BI STUDY Yaw Johnson APRN-SUPERVISOR FLESHING [address] [place] [address] Vascular Surg Ultrasound [place] [address] [place] [address] Referral ID Status Reason Start Date Expiration Date Visits Re quested Visits Authorized [id number] Closed 04/05/2024 04/30/2025 1 1 Specialty Diagnoses / Procedures Referred By Contac t Referred To Contact Peripheral Vascular Diagnoses Coronary artery disease involving la 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 Procedures VASC DIGIT PRESSURE HAND UT NON-INVASIVE PHYSIOLOGIC STUDY EXTREMITY 3 LEVLS [place] Yaw Juarze, PROJECT FACILITATOR-SUPERVISOR FLESHING [address] [place] [address] Vascular Surg Ultrasound [place] [address] [place] [address] Referral ID Status Reason Start Date Expiration Date Visits Re quested Visits Authorized [id number] Closed 04/05/2024 04/30/2025 1 1 Specialty Diagnoses / Procedures Referred By Contac t Referred To Contact Peripheral Vascular Diagnoses Coronary artery disease involving la 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 Procedures VASC DUPLEX VEIN MAPPING EXTREMITY LOWER BILATERAL UT DUP-SCAN XTR VEINS COMPLETE BILATERAL STUDY Yaw Johnson, PROJECT FACILITATOR-SUPERVISOR FLESHING [address] [place] [address] Vascular Surg Ultrasound [place] [address] [place] [address] Referral ID Status Reason Start Date Expiration Date Visits Re quested Visits Authorized [id number] Closed 04/05/2024 04/30/2025 1 1 Reason Onset Date Comments Appointment 05/03/2024 Surgical Follow Up Reason Comments Follow-up Reason Comments Follow-up 6 mo follow-up pt st ates he has overall been feeling good. Pt states he has not been able to get appropriate metoprolol dosage. Pt state she is supposed to be taking 100mg every day and only has 25mg 1/2 tablet BID. Scheduled Active and Recently Administ ered Medications (unrecognized section and content) Medication Order 07/23/2022 07/24/2022 07/25/2022 amLODIPine (NORVASC) tablet 5 mg 5 mg, Oral, DAILY, First dose on Thu07/25/22 at 1600, Until Discontinued 1656 (Given - Provider: Anila Mason, HUBERT) aspirin chewable tablet 81 mg 81 mg, Oral, DAILY, First dose on Thu07/25/22 at 0900, Until Discontinued, Recovery to Continue 0826 (Given - Provider: Anila Mason RN) Atorvastatin (LIPITOR) tablet 40 mg 40 mg, Oral, DAILY AT BEDTIME, First dose on Thu07/24/22 at 2100, Until Discontinued, Recovery to Continue 1950 (Given - Provider: Lola Daley, HUBERT) carveDILOL (COREG) tablet 12.5 mg (CANCELED) 12.5 mg, Oral, EVERY 12 HOURS, First dose on Thu07/24/22 at 2100, Until Discontinued, 1950 (Given - Provider: Lola Daley, HUBERT) carveDILOL (COREG) tablet 25 mg 25 mg, Oral, EVERY 12 HOURS, First dose (after last modification) on Thu07/25/22 at 0900, Until Discontinued, 825 (Given - Provider: Anila Mason RN) Enoxaparin Sodium (LOVENOX) injection 40 mg 40 mg, Subcutaneous, DAILY, First dose on Thu07/25/22 at 0900, Until Discontinued, , Indications: DVT/PE prophylaxis 825 (Given - Provider: Anila Mason RN) Insulin lispro (HUMALOG) injection(Linked Group 1) Subcutaneous, 4 TIMES DAILY WITH MEALS & AT BEDTIME, First dose on Thu07/23/22 at 1200, Until Discontinued, Insulin to carb ratio: Standard: 1 unit insulin = 10 grams carbs every meal and at bedtime Correction Factor: 151-200 = 1 unit; 201-250 = 2 units; 251-300 = 3 units; 301-350 = 4 units; 351-400 = 5 units; Kwikpen: Prime pen before each injection; refer to Pen Priming and Care Handout for further details. Warning! Confirm patient. Insulin pen is for labeled individual patient use ONLY. 1307 (Given - Provider: Shola Green RN)1706 (Given - Provider: Shola Green RN)2038 (Given - Provider: Racheal Zhang RN) 1005 (Not Given - Provider: Kylee Fuller, HUBERT - Reason: Patient not available)1258 (Given - Provider: Kylee Fuller, HUBERT)1745 (Given - Provider: Kylee Fuller, RN)2030 (Not Given - Provider: Lola Daley, HUBERT - Reason: Order Parameters not met) 0826 (Given - Provider: Anila Mason RN)1220 (Given - Provider: Anila Mason RN)1655 (Given - Provider: Anila Mason RN) Lisinopril (PRINIVIL) tablet 40 mg 40 mg, Oral, DAILY, First dose on Thu07/24/22 at 1245, Until Discontinued, Recovery to Continue 1301 (Given - Provider: Kylee Fuller, HUBERT) 0826 (Given - Provider: Anila Mason RN) Magnesium sulfate 4 g in sterile water 50 ml premix IVPB (COMPLETED) 4 g, Intravenous, Administer over 4 Hours, ONCE, 1 dose, On Thu07/23/22 at 1415 1429 ($$New Bag$$ - Provider: Shola Green, HUBERT)1846 (Stopped - Provider: Shola Green RN) Melatonin tablet 6 mg 6 mg, Oral, DAILY AT BEDTIME, First dose on Thu07/24/22 at 2345, Until Discontinued 0050 (Given - Provider: Loal Daley RN) Metoprolol (LOPRESSOR) tablet 25 mg (CANCELED) 25 mg, Oral, EVERY 12 HOURS, First dose on Thu07/23/22 at 0900, Until Discontinued, , Recovery to Continue 0906 (Given - Provider: Shola Green RN)2031 (Given - Provider: Racheal Zhang, HUBERT) 1034 (Given - Provider: Kylee Fuller, HUBERT) Metoprolol (LOPRESSOR) tablet 25 mg (COMPLETED) 25 mg, Oral, ONCE, 1 dose, On Thu07/24/22 at 1245, , Recovery to Continue 1301 (Given - Provider: Kylee Fuller, HUBERT) Potassium Bicarb-Citric Acid (Effer-K) 20 MEQ effervescent tablets for oral solution 20 mEq (COMPLETED) 20 mEq, Oral, ONCE, 1 dose, On Thu07/23/22 at 1415, Do not swallow whole. Dissolve completely in 3-4 ounces of water or cold juice before drinking. If administering via J tube, dilute in sterile water, wait for tablet to stop fizzing, swirl the solution and draw into a syringe suitable for attaching to the tube. After administration, flush tube with 15-30 ml water. 1428 (Given - Provider: Shola Green RN) Senna (SENOKOT) tablet 8.6 mg(Linked Group 2) 8.6 mg, Oral, DAILY, First dose on Thu07/23/22 at 0900, Until Discontinued, Recovery to Continue 09 (Not Given - Provider: Shola Green RN - Reason: Patient/family refused) 1041 (Not Given - Provider: Kylee Fuller RN - Reason: Patient/family refused) 0826 (Given - Provider: Anila Mason, RN) Senna (SENOKOT) tablet 8.6 mg(Linked Group 2) 8.6 mg, Per NG tube, DAILY, First dose on Thu07/23/22 at 0900, Until Discontinued, Recovery to Continue 09 (See Alternative - Provider: Shola Green RN) 1041 (See Alternative - Provider: Kylee Fuller, RN) 0826 (See Alternative - Provider: Anila Mason, RN) Continuous Medication Order 07/23/2022 07/24/2022 07/25/2022 niCARdipine in sodium chloride (CARDENE) 40 mg-0.83/200 ml premix IV infusion 0-15 mg/hr (0-75 mL/hr), Intravenous, CONTINUOUS, Starting on Thu07/22/22 at 1130, Until Thu07/25/22 at 2023, Initiate at 5 mg/hr. Titrate by 2.5 mg/hr every 15 minutes to maintain ICH: SBP between 120 and 140 mmHg. Notify prescriber for inability to achieve goals at maximum dose of ordered range or change in clinical condition. 0105 (Paused - Provider: Kenyetta Harvey RN)0107 (Paused - Provider: Kenyetta Harvey RN)0146 (Paused - Provider: Kenyetta Harvey RN)0146 (Paused - Provider: Kenyetta Harvey RN)0146 (Paused - Provider: Kenyetta Harvey RN)0146 (Restarted - Provider: Kenyetta Harvey RN)0147 (Paused - Provider: Kenyetta Harvey RN)0150 (Restarted - Provider: Kenyetta Harvey RN)0151 (Paused - Provider: Kenyetta Harvey RN)0157 (Paused - Provider: Kenyetta Harvey RN)0158 (Restarted - Provider: Kenyetta Harvey RN)0248 (Paused - Provider: Kenyetta Harvey RN)0250 (Restarted - Provider: Kenyetta Harvey RN)0251 (Stopped - Provider: Kenyetta Harvey RN)0251 ($$New Bag$$ - Provider: Kenyetta Harvey RN)0531 (Rate/Dose Change - Provider: Kenyetta Harvey RN)0532 (Rate/Dose Change - Provider: Kenyetta Harvey RN)0536 (Rate/Dose Verify - Provider: Kenyetta Harvey RN)0554 ($$New Bag$$ - Provider: Kenyetta Harvey RN)0834 (Rate/Dose Change - Provider: Kylee Fuller RN)0841 (Rate/Dose Change - Provider: Kylee Fuller RN)0906 (Rate/Dose Change - Provider: Kylee Fuller RN)0921 (Stopped - Provider: Kylee Fuller RN)0921 ($$New Bag$$ - Provider: Shola Green RN)1002 (Rate/Dose Change - Provider: Shola Green RN)1003 (Rate/Dose Verify - Provider: Kylee Fuller RN)1109 (Rate/Dose Change - Provider: Shola Green RN)1110 (Rate/Dose Verify - Provider: Kylee Fuller RN)1142 (Rate/Dose Change - Provider: Kylee Fuller RN)1222 (Rate/Dose Verify - Provider: Shola Green RN - Comment: [Action automatically changed])1237 (Rate/Dose Change - Provider: Shola Green RN)1237 (Rate/Dose Verify - Provider: Kylee Fuller RN)1256 (Rate/Dose Change - Provider: Kylee Fuller RN)1304 (Rate/Dose Verify - Provider: Shola Green RN - Comment: [Action automatically changed])1414 (Rate/Dose Change - Provider: Kylee Fuller RN)1424 (Rate/Dose Change - Provider: Kylee Fuller RN)1425 (Rate/Dose Change - Provider: Kylee Fuller RN)1430 (Rate/Dose Verify - Provider: Shola Green RN - Comment: [Action automatically changed])1431 (Rate/Dose Change - Provider: Kylee Fuller RN)1501 (Rate/Dose Change - Provider: Shola Norma, RN)1505 (Stopped - Provider: Kylee Fuller RN)1506 ($$New Bag$$ - Provider: Shola Green RN)1746 (Rate/Dose Change - Provider: Kylee Fuller RN)1751 (Rate/Dose Change - Provider: Kylee Fuller RN)1831 (Rate/Dose Change - Provider: Kylee Fuller RN)1837 (Paused - Provider: Kylee Fuller RN)183 (Rate/Dose Change - Provider: Kylee Fuller RN)2022 (Paused - Provider: Racheal Zhang RN)2022 (Restarted - Provider: Racheal Zhang RN)2110 (Rate/Dose Change - Provider: Racheal Zhang RN)2119 (Rate/Dose Change - Provider: Racheal Zhang RN)2123 (Stopped - Provider: Racheal Zhang RN)2125 ($$New Bag$$ - Provider: Sydni Cuellar RN - Comment: BP 131/67)2125 (Rate/Dose Verify - Provider: Racheal Zhang RN)233 (Paused - Provider: Racheal Zhang RN)2337 (Restarted - Provider: Racheal Zhang RN)2341 (Paused - Provider: Kylee Fuller RN)2341 (Restarted - Provider: Kylee Fuller RN)2341 (Paused - Provider: Kylee Fuller RN)2341 (Restarted - Provider: Kylee Fuller RN)2341 (Paused - Provider: Kylee Fuller RN)2341 (Restarted - Provider: Kylee Fuller RN)2342 (Paused - Provider: Kylee Fuller RN)2342 (Paused - Provider: Kylee Fuller RN)2342 (Restarted - Provider: Kylee Fuller RN)2343 (Paused - Provider: Kylee Fuller RN)2347 (Restarted - Provider: Kylee Fuller RN)2348 (Paused - Provider: Kylee Fuller RN)2348 (Restarted - Provider: Kylee Fuller RN)2348 (Stopped - Provider: Kylee Fuller RN)2348 (Stopped - Provider: Kylee Fuller RN)2351 (Stopped - Provider: Kylee Fuller RN)2351 (Stopped - Provider: Kylee Fuller RN)2352 (Stopped - Provider: Racheal Zhang RN) 0114 ($$New Bag$$ - Provider: Racheal Zhang RN)0116 (Rate/Dose Verify - Provider: Racheal Zhang RN)0354 (Rate/Dose Change - Provider: Kylee Fuller RN)0401 (Rate/Dose Change - Provider: Kylee Fuller RN)0404 (Stopped - Provider: Kylee Fuller RN)0404 ($$New Bag$$ - Provider: Racheal Zhang RN)0642 (Stopped - Provider: Kylee Fuller RN)0642 ($$New Bag$$ - Provider: Racheal Zhang RN)0744 (Rate/Dose Verify - Provider: Kylee Fuller RN)0922 (Rate/Dose Change - Provider: Kylee Fuller RN)0922 (Paused - Provider: Kylee Fuller RN)0934 (Rate/Dose Change - Provider: Kylee Fuller RN)0959 (Paused - Provider: Kylee Fuller RN)1002 (Paused - Provider: Kylee Fuller RN)1002 (Restarted - Provider: Kylee Fuller RN)1003 (Stopped - Provider: Kylee Fuller RN)1003 ($$New Bag$$ - Provider: Kylee Fuller RN)1115 (Paused - Provider: Kylee Fuller RN)1119 (Restarted - Provider: Kylee Fuller RN)1248 (Rate/Dose Change - Provider: Kylee Fuller RN)1252 (Stopped - Provider: Kylee Fuller RN)1253 (Stopped - Provider: Kylee Fuller RN)1253 (Stopped - Provider: Kylee Fuller RN)1256 (Stopped - Provider: Kylee Fuller RN)1257 (Stopped - Provider: Kylee Fuller RN)1258 (Stopped - Provider: Kylee Fuller RN)1258 ($$New Bag$$ - Provider: Kylee Fuller RN)1533 (Paused - Provider: Kylee Fuller RN)1536 (Restarted - Provider: Kylee Fuller RN)1539 (Stopped - Provider: Kylee Fuller RN)1539 ($$New Bag$$ - Provider: Kylee Fuller RN)1555 (Rate/Dose Change - Provider: Kylee Fuller RN)1600 (Rate/Dose Verify - Provider: Kylee Fuller RN)1624 (Rate/Dose Change - Provider: Kylee Fuller RN)1625 (Rate/Dose Verify - Provider: Kylee Fuller RN)1712 (Rate/Dose Change - Provider: Lola Daley RN)194 (Rate/Dose Change - Provider: Lola Daley RN)194 (Rate/Dose Change - Provider: Lola Daley RN)2031 (Rate/Dose Change - Provider: Lola Daley RN)2108 (Rate/Dose Change - Provider: Lola Daley RN)2113 (Rate/Dose Verify - Provider: Lola Daley RN)2125 (Rate/Dose Change - Provider: Lola Daley RN)2128 (Rate/Dose Change - Provider: Lola Daley RN)213 (Stopped - Provider: Lola Daley RN)213 ($$New Bag$$ - Provider: Lola Daley RN)213 (Rate/Dose Verify - Provider: Lola Daley RN) 0100 (Rate/Dose Change - Provider: Lola Daley RN)0109 (Rate/Dose Change - Provider: Lola Daley RN)0112 (Rate/Dose Change - Provider: Lola Daley RN)0114 (Stopped - Provider: Lola Daley RN)0114 ($$New Bag$$ - Provider: Lola Daley RN)0205 (Rate/Dose Change - Provider: Lola Daley RN)0301 (Rate/Dose Change - Provider: Lola Daley RN)0402 (Stopped - Provider: Lola Daley RN)0457 (Paused - Provider: Lola Daley RN)0457 (Restarted - Provider: Lola Daley RN)0457 (Stopped - Provider: Lola Daley RN)0602 (Paused - Provider: Lola Daley RN)0602 (Restarted - Provider: Lola Daley RN)0603 (Rate/Dose Verify - Provider: Lola Daley RN)0734 (Paused - Provider: Anila Mason RN)0739 (Restarted - Provider: Anila Mason RN)0847 (Rate/Dose Verify - Provider: Anila Mason RN)1018 (Paused - Provider: Anila Mason RN)1019 (Stopped - Provider: Anila Mason RN) sodium chloride 0.9% 1,000 ml with potassium chloride 20 mEq premix IV solution (CANCELED) Intravenous, at 75 mL/hr, CONTINUOUS, Starting on Thu07/22/22 at 1630, Until Thu07/23/22 at 1157, Recovery to Continue 0104 (Paused - Provider: Kenyetta Harvey RN)0104 (Paused - Provider: Kenyetta Harvey RN)0158 (Paused - Provider: Kenyetta Harvey RN)0158 (Restarted - Provider: Kenyetta Harvey RN)0536 (Rate/Dose Verify - Provider: Kenyetta Harvey RN)0551 ($$New Bag$$ - Provider: Kenyetta Harvey RN)1002 (Rate/Dose Verify - Provider: Shola Green RN)1237 (Stopped - Provider: Shola Green RN) PRN Medication Order 07/23/2022 07/24/2022 07/25/2022 Acetaminophen (TYLENOL) tablet 325 mg(Linked Group 3) 325 mg, Oral, EVERY 4 HOURS NEEDED, Starting on Thu07/22/22 at 1620, Until Thu07/25/22 at 2023, Mild Pain, Moderate Pain, Maximum dose of acetaminophen is 4000 mg from all sources in 24 hours., Recovery to Continue Acetaminophen (TYLENOL) tablet 325 mg(Linked Group 3) 325 mg, Per NG tube, EVERY 4 HOURS NEEDED, Starting on Thu07/22/22 at 1620, Until Thu07/25/22 at 2023, Mild Pain, Moderate Pain, Maximum dose of acetaminophen is 4000 mg from all sources in 24 hours., Recovery to Continue Acetaminophen (TYLENOL) tablet 650 mg(Linked Group 3) 650 mg, Oral, EVERY 4 HOURS NEEDED, Starting on Thu07/22/22 at 1620, Until Thu07/25/22 at 2023, Severe Pain, Oral temp > 99.5, Maximum dose of acetaminophen is 4000 mg from all sources in 24 hours., Recovery to Continue Acetaminophen (TYLENOL) tablet 650 mg(Linked Group 3) 650 mg, Per NG tube, EVERY 4 HOURS NEEDED, Starting on Thu07/22/22 at 1620, Until Thu07/25/22 at 2023, Severe Pain, Oral temp > 99.5, Maximum dose of acetaminophen is 4000 mg from all sources in 24 hours., Recovery to Continue Dextrose 50% injection 7.5-25 g(Linked Group 1) 7.5-25 g, Intravenous, ADMINISTER DIRECTED, Starting on Thu07/23/22 at 1158, Until Thu07/25/22 at 2023, Blood glucose <80 mg/dL, For patients who are not alert, are NPO, or are on IV insulin infusion administer as directed per Hypoglycemia in Non- Adults Clinical Practice Guideline. For Blood Glucose: 60-79 mg/dL administer 7.5 gm (15ml); 45-59 mg/dL administer 12.5 gm (25ml); less than 45mg/dL administer 25gm (50ml). ++ If additional dextrose 50% needed, contact pharmacy or obtain from crash cart ++ fentaNYL (SUBLIMAZE) injection (COMPLETED) Intravenous, Administer over 2 Minutes, ONCE NEEDED, 1 dose, Starting on Thu07/24/22 at 0818, Until Thu07/24/22 at 0818 0818 (Given - Provider: Jong Landaverde RN) glucose (GLUTOSE) 40 % oral gel 1-2 Tube(Linked Group 1) 1-2 Tube, Oral, ADMINISTER DIRECTED, Starting on Thu07/23/22 at 1158, Until Thu07/25/22 at 2023, Blood glucose <80 mg/dL, For patients who are alert, able to tolerate PO intake and with intact cognitive status administer as directed per Hypoglycemia in Non- Adults Clinical Practice Guideline. For Blood Glucose: 60-79 mg/dL administer 1 tube; 45-59 mg/dl administer 1.5 tubes; less than 45 mg/dL administer 2 tubes. Each tube of 37.5g delivers 15g of carbohydrate. hydrALAZINE (APRESOLINE) injection 10 mg(Linked Group 4) 10 mg, Intravenous, EVERY 1 HOUR NEEDED, Starting on Thu07/25/22 at 1057, Until Thu07/25/22 at 2023, SBP > 160 mmHg with HR <60 bpm, Use as initial dose. Use if Heart Rate LESS THAN 60 beats per minute. Higher dose may be administered if lower dose was previously documented as ineffective 10 minutes after administration and did not result in adverse effects (HR>90), Recovery to Continue hydrALAZINE (APRESOLINE) injection 20 mg(Linked Group 4) 20 mg, Intravenous, EVERY 1 HOUR NEEDED, Starting on Thu07/25/22 at 1057, Until Thu07/25/22 at 2023, SBP > 160 mmHg with HR <60 bpm, Use if Heart Rate LESS THAN 60 beats per minute. Higher dose may be administered if lower dose was previously documented as ineffective 10 minutes after administration and did not result in adverse effects (HR>90). Decrease back to lower dose if patient has adverse effects, or no PRN used in previous 3 hours, Recovery to Continue hydrOXYzine hcl (ATARAX) tablet 10 mg (COMPLETED) 10 mg, Oral, ONCE DIRECTED, 1 dose, Starting on Thu07/24/22 at 2342, Until Thu07/25/22 at 0050, Anxiety 0050 (Given - Provider: Lola Daley RN) Insulin lispro (HUMALOG) injection(Linked Group 1) Subcutaneous, NEEDED, Starting on Thu07/23/22 at 1158, Until Thu07/25/22 at 2023, Other, As needed for snacks, Insulin to carb ratio: Standard: 1 unit insulin = 10 grams carbs Correction Factor: not to be used with this order. Kwikpen: Prime pen before each injection; refer to Pen Priming and Care Handout for further details. Warning! Confirm patient. Insulin pen is for labeled individual patient use ONLY. Labetalol (NORMODYNE) injection 10 mg (CANCELED) 10 mg, Intravenous, EVERY 1 HOUR NEEDED, Starting on Thu07/22/22 at 1620, Until Thu07/25/22 at 1058, SBP > 140 mmHg with HR >60 bpm, Use as initial dose. Use if Heart Rate GREATER THAN 60 beats per minute. Higher dose may be administered if lower dose was previously documented as ineffective 10 minutes after administration and did not result in adverse effects (HR<60) For vials: labetalol should be treated as a SINGLE USE VIAL. Discard remaining contents after one use., Recovery to Continue 0558 (Given - Provider: Kenyetta Harvey RN)1709 (Given - Provider: Shola Green RN) Labetalol (NORMODYNE) injection 10 mg(Linked Group 5) 10 mg, Intravenous, EVERY 1 HOUR NEEDED, Starting on Thu07/25/22 at 1058, Until Thu07/25/22 at 2023, SBP > 160 mmHg with HR >60 bpm, Use as initial dose. Use if Heart Rate GREATER THAN 60 beats per minute. Higher dose may be administered if lower dose was previously documented as ineffective 10 minutes after administration and did not result in adverse effects (HR<60) For vials: labetalol should be treated as a SINGLE USE VIAL. Discard remaining contents after one use., Recovery to Continue Labetalol (NORMODYNE) injection 20 mg(Linked Group 5) 20 mg, Intravenous, EVERY 1 HOUR NEEDED, Starting on Thu07/25/22 at 1058, Until Thu07/25/22 at 2023, SBP > 160 mmHg with HR >60 bpm, Use if Heart Rate GREATER THAN 60 beats per minute. Higher dose may be administered if lower dose was previously documented as ineffective 10 minutes after administration and did not result in adverse effects (HR<60). Decrease back to lower dose if patient has adverse effects, or no PRN used in previous 3 hours For vials: labetalol should be treated as a SINGLE USE VIAL. Discard remaining contents after one use., Recovery to Continue Lidocaine (XYLOCAINE) 5 % ointment 1 Application () 1 Application, Topical, ADMINISTER DIRECTED, Starting on Meche 07/24/22 at 0807, Until Meche 07/24/22 at 1006, FOR CLARITZA PROCEDURE ONLY, FOR CLARITZA PROCEDURE ONLY Max: 20gm/day. Apply to back of throat., Intra-op/Intra-Proc 0813 (Given - Provider: Jong Landaverde RN) LORazepam (ATIVAN) injection 1 mg (COMPLETED) 1 mg, Intravenous, ONCE NEEDED, 1 dose, Starting on Thu07/23/22 at 0053, Until Thu07/23/22 at 0105, Other, 15 min prior to MRI, Extravasation Risk 0105 (Given - Provider: Kenyetta Harvey RN) midazolam (VERSED) injection (COMPLETED) Intravenous, ONCE NEEDED, 1 dose, Starting on Meche 07/24/22 at 0818, Until Thu07/24/22 at 0818 0818 (Given - Provider: Jong Landaverde RN) Ondansetron (ZOFRAN) tablet 4 mg(Linked Group 6) 4 mg, Oral, EVERY 6 HOURS NEEDED, Starting on Thu07/22/22 at 1620, Until Thu07/25/22 at 2023, Nausea / Vomiting, Recovery to Continue Ondansetron 4mg/2ml (ZOFRAN) injection 4 mg(Linked Group 6) 4 mg, Intravenous, EVERY 6 HOURS NEEDED, Starting on Thu07/22/22 at 1620, Until Thu07/25/22 at 2023, Nausea / Vomiting, Recovery to Continue Polyethylene glycol (MIRALAX) packet 17 g(Linked Group 7) 17 g, Oral, DAILY NEEDED, Starting on Thu07/22/22 at 1620, Until Thu07/25/22 at 2023, Constipation If No Bowel Movement in 48 Hours, Recovery to Continue Polyethylene glycol (MIRALAX) packet 17 g(Linked Group 7) 17 g, Per NG tube, DAILY NEEDED, Starting on Thu07/22/22 at 1620, Until Thu07/25/22 at 2023, Constipation If No Bowel Movement in 48 Hours, Recovery to Continue Linked Groups Order Group 1: Insulin lispro (HUMALOG) injectionJump to med Subcutaneous, 4 TIMES DAILY WITH MEALS & AT BEDTIME, First dose on Thu07/23/22 at 1200, Until Discontinued
Insulin to carb ratio: Standard: 1 unit insulin = 10 grams carbs every meal and at bedtime Correction Factor: 151-200 = 1 unit; 201-250 = 2 units; 251-300 = 3 units; 301-350 = 4 units; 351-400 = 5 units; Kwikpen: Prime pen before each injection; refer to Pen Priming and Care Handout for further details. Warning! Confirm patient. Insulin pen is for labeled individual patient use ONLY.
And Insulin lispro (HUMALOG) injectionJump to med Subcutaneous, NEEDED, Starting on Thu07/23/22 at 1158, Until Thu07/25/22 at 2024, Other, As needed for snacks
Insulin to carb ratio: Standard: 1 unit insulin = 10 grams carbs Correction Factor: not to be used with this order. Kwikpen: Prime pen before each injection; refer to Pen Priming and Care Handout for further details. Warning! Confirm patient. Insulin pen is for labeled individual patient use ONLY.
And BLOOD GLUCOSE (POC DEVICE) (CANCELED) Routine, 4 TIMES DAILY BEFORE MEALS & AT BEDTIME, First occurrence on Thu07/23/22 at 1530
If any Blood Glucose (POC) is greater than 300mg/dl, then repeat Blood Glucose (POC) in 2 hours. If the initial blood glucose was greater than 300mg/dl and if second blood glucose is greater than 200md/dl, then notify Stereotype Finisher. And BLOOD GLUCOSE (POC DEVICE) (CANCELED) Routine, DIRECTED, Starting on Thu07/23/22 at 1158, Until Specified
For all Blood Glucose LESS THAN 80 mg/dL, treat per Hypoglycemia in Non- Adults Clinical Practice Guideline (CPG) and recheck glucose 15 min after treatment. Repeat per CPG until glucose GREATER THAN 80 mg/dL. Once glucose IS GREATER THAN 80 mg/dL, recheck Blood Glucose every 1 hour x2, then resume as previously ordered. For Blood Glucose LESS THAN 80 mg/dL on admission OR LESS than 45 mg/dL at any time, obtain POC Blood Glucose every 4 hours for 6 occurrences AFTER treating per CPG. Obtain blood glucose for symptoms of hypoglycemia: sweating, shaking, fatigue, rapid pulse, slow thinking & dizziness. Notify physician w/results. Obtain blood glucose for symptoms of hyperglycemia: excessive thirst, blurred vision, excessive urination & tiredness. Notify physician w/results. If patient NPO, obtain POC Blood Glucose prior to administration of any insulin products. And COMMUNICATION ORDER FOR NURSING CARE: For Blood Glucose LESS THAN 80 mg/dl (CANCELED) Routine, CONTINUOUS, Starting on Thu07/23/22 at 1159, Until Specified
For Blood Glucose LESS THAN 80 mg/dl follow Hypoglycemia in Non- Adults Clinical Practice Guideline (CPG) And Dextrose 50% injection 7.5-25 gJump to med 7.5-25 g, Intravenous, ADMINISTER DIRECTED, Starting on Thu07/23/22 at 1158, Until Thu07/25/22 at 2023, Blood glucose <80 mg/dL
For patients who are not alert, are NPO, or are on IV insulin infusion administer as directed per Hypoglycemia in Non- Adults Clinical Practice Guideline. For Blood Glucose: 60-79 mg/dL administer 7.5 gm (15ml); 45-59 mg/dL administer 12.5 gm (25ml); less than 45mg/dL administer 25gm (50ml). ++ If additional dextrose 50% needed, contact pharmacy or obtain from [facility] cart ++
And glucose (GLUTOSE) 40 % oral gel 1-2 TubeJump to med 1-2 Tube, Oral, ADMINISTER DIRECTED, Starting on Thu07/23/22 at 1158, Until Thu07/25/22 at 2023, Blood glucose <80 mg/dL
For patients who are alert, able to tolerate PO intake and with intact cognitive status administer as directed per Hypoglycemia in Non- Adults Clinical Practice Guideline. For Blood Glucose: 60-79 mg/dL administer 1 tube; 45-59 mg/dl administer 1.5 tubes; less than 45 mg/dL administer 2 tubes. Each tube of 37.5g delivers 15g of carbohydrate.
And NOTIFY PHYSICIAN, Blood Glucose LESS THAN 80 mg/dl (CANCELED) Routine, CONTINUOUS, Starting on Thu07/23/22 at 1159, Until Specified
Who to Notify: Stereotype Finisher
For all Blood Glucose LESS THAN 80 mg/dl, notify Stereotype Finisher after treatment per Hypoglycemia in Non- Adults Clinical Practice Guideline And Carbohydrate counts with meals (CANCELED) Routine, CONTINUOUS, Starting on Thu07/23/22 at 1159, Until Specified
Carbohydrate counts are to be done after each patient meal and with snack. Group 2: Senna (SENOKOT) tablet 8.6 mgJump to med 8.6 mg, Oral, DAILY, First dose on Thu07/23/22 at 0900, Until Discontinued, Recovery to Continue Or Senna (SENOKOT) tablet 8.6 mgJump to med 8.6 mg, Per NG tube, DAILY, First dose on Thu07/23/22 at 0900, Until Discontinued, Recovery to Continue Group 3: Acetaminophen (TYLENOL) tablet 325 mgJump to med 325 mg, Oral, EVERY 4 HOURS NEEDED, Starting on Thu07/22/22 at 1620, Until Thu07/25/22 at 2023, Mild Pain, Moderate Pain
Maximum dose of acetaminophen is 4000 mg from all sources in 24 hours.
Recovery to Continue Or Acetaminophen (TYLENOL) tablet 325 mgJump to med 325 mg, Per NG tube, EVERY 4 HOURS NEEDED, Starting on Thu07/22/22 at 1620, Until Thu07/25/22 at 2023, Mild Pain, Moderate Pain
Maximum dose of acetaminophen is 4000 mg from all sources in 24 hours.
Recovery to Continue Or Acetaminophen (TYLENOL) tablet 650 mgJump to med 650 mg, Oral, EVERY 4 HOURS NEEDED, Starting on Thu07/22/22 at 1620, Until Thu07/25/22 at 2023, Severe Pain, Oral temp > 99.5
Maximum dose of acetaminophen is 4000 mg from all sources in 24 hours.
Recovery to Continue Or Acetaminophen (TYLENOL) tablet 650 mgJump to med 650 mg, Per NG tube, EVERY 4 HOURS NEEDED, Starting on Thu07/22/22 at 1620, Until Thu07/25/22 at 2023, Severe Pain, Oral temp > 99.5
Maximum dose of acetaminophen is 4000 mg from all sources in 24 hours.
Recovery to Continue Group 4: hydrALAZINE (APRESOLINE) injection 10 mgJump to med 10 mg, Intravenous, EVERY 1 HOUR NEEDED, Starting on Thu07/25/22 at 1057, Until Thu07/25/22 at 2023, SBP > 160 mmHg with HR <60 bpm
Use as initial dose. Use if Heart Rate LESS THAN 60 beats per minute. Higher dose may be administered if lower dose was previously documented as ineffective 10 minutes after administration and did not result in adverse effects (HR>90)
Recovery to Continue Or hydrALAZINE (APRESOLINE) injection 20 mgJump to med 20 mg, Intravenous, EVERY 1 HOUR NEEDED, Starting on Thu07/25/22 at 1057, Until Thu07/25/22 at 2023, SBP > 160 mmHg with HR <60 bpm
Use if Heart Rate LESS THAN 60 beats per minute. Higher dose may be administered if lower dose was previously documented as ineffective 10 minutes after administration and did not result in adverse effects (HR>90). Decrease back to lower dose if patient has adverse effects, or no PRN used in previous 3 hours
Recovery to Continue Group 5: Labetalol (NORMODYNE) injection 10 mgJump to med 10 mg, Intravenous, EVERY 1 HOUR NEEDED, Starting on Thu07/25/22 at 1058, Until Thu07/25/22 at 2023, SBP > 160 mmHg with HR >60 bpm
Use as initial dose. Use if Heart Rate GREATER THAN 60 beats per minute. Higher dose may be administered if lower dose was previously documented as ineffective 10 minutes after administration and did not result in adverse effects (HR<60) For vials: labetalol should be treated as a SINGLE USE VIAL. Discard remaining contents after one use.
Recovery to Continue Or Labetalol (NORMODYNE) injection 20 mgJump to med 20 mg, Intravenous, EVERY 1 HOUR NEEDED, Starting on Thu07/25/22 at 1058, Until Thu07/25/22 at 2023, SBP > 160 mmHg with HR >60 bpm
Use if Heart Rate GREATER THAN 60 beats per minute. Higher dose may be administered if lower dose was previously documented as ineffective 10 minutes after administration and did not result in adverse effects (HR<60). Decrease back to lower dose if patient has adverse effects, or no PRN used in previous 3 hours For vials: labetalol should be treated as a SINGLE USE VIAL. Discard remaining contents after one use.
Recovery to Continue Group 6: Ondansetron 4mg/2ml (ZOFRAN) injection 4 mgJump to med 4 mg, Intravenous, EVERY 6 HOURS NEEDED, Starting on Thu07/22/22 at 1620, Until Thu07/25/22 at 2023, Nausea / Vomiting, Recovery to Continue Or Ondansetron (ZOFRAN) tablet 4 mgJump to med 4 mg, Oral, EVERY 6 HOURS NEEDED, Starting on Thu07/22/22 at 1620, Until Thu07/25/22 at 2023, Nausea / Vomiting, Recovery to Continue Group 7: Polyethylene glycol (MIRALAX) packet 17 gJump to med 17 g, Oral, DAILY NEEDED, Starting on Thu07/22/22 at 1620, Until Thu07/25/22 at 2023, Constipation If No Bowel Movement in 48 Hours, Recovery to Continue Or Polyethylene glycol (MIRALAX) packet 17 gJump to med 17 g, Per NG tube, DAILY NEEDED, Starting on Thu07/22/22 at 1620, Until Thu07/25/22 at 2023, Constipation If No Bowel Movement in 48 Hours, Recovery to Continue Scheduled Medication Order 08/03/2023 08/04/2023 08/05/2023 aspirin chewable tablet 324 mg (COMPLETED) 324 mg, Oral, ONCE, 1 dose, On Thu08/05/23 at 1030, Patient to receive at least 30 minutes prior to procedure. Instruct patient to chew and not swallow., Pre-op/Pre-Proc 1015 (Given - Provid er: Antonia Cruz RN) ceFAZolin (ANCEF) 2 g in dextrose 100 mL premix IVPB (COMPLETED) 2 g, Intravenous, Administer over 30 Minutes, ONCE, 1 dose, On Thu08/05/23 at 1045, Pre-op/Pre-Proc 1259 ($$New Bag$$ - Provider: Shama Xavier RN)1349 (Stopped - Provider: Shama Xavier RN) Perflutren Lipid Microsphere (DEFINITY) 1.5 mL in Normal saline flush 0.9% 8.5 mL (COMPLETED) 10 mL, Intravenous, ONCE, 1 dose, On Thu08/05/23 at 1630, FOR ECHO PROCEDURE ONLY Dilute 1.3 mL of Definity with 8.7 mL of 0.9% sodium chloride and draw up in a 10 mL syringe. Administration during procedure as directed by physician. Recorded MAR dose is cumulative amount given during procedure., Echo Procedure 1601 (Given - Radiol ogy - Provider: Hunter Chen RN - Comment: [id number] 05/18' no issues noted) Continuous Medication Order 08/03/2023 08/04/2023 08/05/2023 Sodium chloride 0.9% IV solution (CANCELED) Intravenous, at 75 mL/hr, CONTINUOUS, Starting on Thu08/05/23 at 1000, Until Thu08/05/23 at 1422, Pre-op/Pre-Proc 1015 ($$New Bag$$ - Provider: Antonia Cruz RN - Comment: iv tubing filter in place)1440 (Stopped - Provider: Antonia Cruz RN) Sodium chloride 0.9% IV solution 75 mL/hr, Intravenous, CONTINUOUS, Starting on Thu08/05/23 at 1430, Until Thu08/05/23 at 1729, Post-op/Post-Proc 1441 (Rate/Dose Toth ge - Provider: Antonia Cruz, RN) PRN Medication Order 08/03/2023 08/04/2023 08/05/2023 Acetaminophen (TYLENOL) tablet 325 mg 325 mg, Oral, EVERY 6 HOURS NEEDED, Starting on Thu08/05/23 at 1421, Until Thu08/05/23 at 2115, Mild Pain, Maximum dose of acetaminophen is 4000 mg from all sources in 24 hours., Post-op/Post-Proc 1701 (Given - Provid er: Antonia Cruz RN) fentaNYL (SUBLIMAZE) injection (CANCELED) Administer over 2 Minutes, NEEDED, Starting on Thu08/05/23 at 1306, Until Thu08/05/23 at 1425, Intra-op/Intra-Proc 1306 (Given - Provid er: Mariann Wilson RN)1310 (Given - Provider: Mariann Wilson RN)1327 (Given - Provider: Mariann Wilson RN)1359 (Given - Provider: Mariann Wilson RN) Heparin injection (CANCELED) NEEDED, Starting on Thu08/05/23 at 1333, Until Thu08/05/23 at 1425, Intra-op/Intra-Proc 1333 (Given - Provid er: Mariann Wilson RN)1352 (Given - Provider: Mariann Wilson RN) Lidocaine 2 % injection (CANCELED) NEEDED, Starting on Thu08/05/23 at 1311, Until Thu08/05/23 at 1425, Intra-op/Intra-Proc 1311 (Given - Provid er: Raquel Gupta MD - Comment: left groin)1331 (Given - Provider: Jamal Turcios MD - Comment: right groin) midazolam (VERSED) injection (CANCELED) NEEDED, Starting on Thu08/05/23 at 1305, Until Thu08/05/23 at 1425, Intra-op/Intra-Proc 1305 (Given - Provid er: Mariann Wilson RN)1310 (Given - Provider: Mariann Wilson RN)1315 (Given - Provider: Mariann Wilson RN)1353 (Given - Provider: Mariann Wilson RN) Vancomycin HCl in NaCl (Vancocin) 1,250 mg 287.5 ml premade IVPB (COMPLETED) 1,250 mg (rounded from 1,206 mg = 15 mg/kg 80.4 kg Adjusted weight), Intravenous, Administer over 1 Hours, [employer] TO PROCEDURE, 1 dose, Starting on Thu08/05/23 at 1006, Until Thu08/05/23 at 1259, Other, Surgical Prophylaxis, Infusion must complete prior to surgical incision. Initiate antibiotic administration 60-120 minutes prior to surgical incision (depending on Administer Over Time), Pre-op/Pre-Proc 1031 ($$New Bag$$ - Provider: Antonia Cruz, HUBERT)1259 (Stopped - Provider: Shama Xavier, RN) Scheduled Medication Order 03/27/2024 03/28/2024 03/29/2024 aspirin chewable tablet 324 mg (COMPLETED) 324 mg, Oral, ONCE, 1 dose, On Thu03/29/24 at 1015, Patient to receive at least 30 minutes prior to procedure. Instruct patient to chew and not swallow., Pre-op/Pre-Proc 1039 (Given - Provid er: Dinorah Plata RN) aspirin chewable tablet 81 mg 81 mg, Oral, DAILY EVERY MORNING, First dose on Thu03/30/24 at 0900, Until Discontinued, Post-op/Post-Proc PRN Medication Order 03/27/2024 03/28/2024 03/29/2024 fentaNYL (SUBLIMAZE) injection (CANCELED) Administer over 2 Minutes, NEEDED, Starting on Thu03/29/24 at 1217, Until Thu03/29/24 at 1300, Intra-op/Intra-Proc 1217 (Given - Provid er: Toma Justice RN)1235 (Given - Provider: Toma Justice RN)1244 (Given - Provider: Toma Justice RN) Heparin injection (CANCELED) NEEDED, Starting on Thu03/29/24 at 1235, Until Thu03/29/24 at 1300, Intra-op/Intra-Proc 1238 (Given - Provid er: Lillie Kessler MD) iodixanol (VISIPAQUE) injection 320 mg/mL for [facility] IR (CANCELED) NEEDED, Starting on Thu03/29/24 at 1252, Until Thu03/29/24 at 1300, Intra-op/Intra-Proc 1252 (Given - Provid er: Jamal Turcios MD) Lidocaine 2 % injection (CANCELED) NEEDED, Starting on Thu03/29/24 at 1217, Until Thu03/29/24 at 1300, Intra-op/Intra-Proc 1217 (Given - Provid er: Lillie Kessler MD) midazolam (VERSED) injection (CANCELED) NEEDED, Starting on Thu03/29/24 at 1217, Until Thu03/29/24 at 1300, Intra-op/Intra-Proc 1217 (Given - Provid er: Toma Justice RN)1218 (Given - Provider: Toma Justice RN) Scheduled Medication Order 04/30/2024 05/01/2024 05/02/2024 AMIOdarone (PACERONE) tablet 200 mg 200 mg, Oral, DAILY, 9 doses, First dose on Thu04/27/24 at 0900, Last dose on Thu05/05/24 at 0900 0824 (Given - Provider: Tomasa Richmond RN) 0945 (Given - Provider: Tomasa Richmond RN) 0830 (Given - Provider: Gaby Snyder, RN) amLODIPine (NORVASC) tablet 10 mg 10 mg, Oral, DAILY, First dose (after last modification) on Thu05/01/24 at 0900, Until Discontinued 0944 (Given - Provider: Tomasa Richmond RN) 0830 (Given - Provider: Gaby Snyder, RN) amLODIPine (NORVASC) tablet 5 mg (CANCELED) 5 mg, Oral, DAILY, First dose on 04/30/24 at 1245, Until Discontinued 1320 (Given - Provider: Tomasa Richmond, HUBERT) Aspirin tablet 325 mg 325 mg, Oral, DAILY, First dose on Thu04/27/24 at 0900, Until Discontinued, Post-op/Post-Proc 0824 (Given - Provider: Tomasa Richmond RN) 0945 (Given - Provider: Tomasa Richmond RN) 0830 (Given - Provider: Gaby Snyder RN) balsam-castor oil (VENELEX) ointment 1 Application 1 Application, Topical, 3 TIMES DAILY, First dose on Thu04/26/24 at 1400, Until Discontinued, Apply to bony prominences (like back, heels, elbows, sacrum, etc.) to promote circulation., ICU 0756 (Not Given - Provider: Tomasa Richmond RN - Reason: Patient/family refused)1208 (Not Given - Provider: Tomasa Richmond RN - Reason: Patient/family refused)202 (Not Given - Provider: Lexii Boles RN - Reason: Patient/family refused) 0729 (Not Given - Provider: Tomasa Richmond RN - Reason: Patient/family refused)1210 (Not Given - Provider: Tomasa Richmond RN - Reason: Patient/family refused)2014 (Not Given - Provider: Lexii Boles RN - Reason: Patient/family refused) 0754 (Not Given - Provider: Gaby Snyder RN - Reason: Patient/family refused)1318 (Not Given - Provider: Gaby Snyder RN - Reason: Patient/family refused) bisacodyl (DULCOLAX) suppository 10 mg 10 mg, Rectal, DAILY, First dose on Meche 04/28/24 at 1215, Until Discontinued, Hold for loose stools or positive bowel movement in the last 48 hours., Post-op/Post-Proc 0756 (Not Given - Provider: Tomasa Richmond RN - Reason: Order Parameters not met) 0729 (Not Given - Provider: Tomasa Richmond RN - Reason: Order Parameters not met) 0754 (Not Given - Provider: Gaby Snyder, HUBERT - Reason: Order Parameters not met) cefTRIAXone (ROCEPHIN) 1 g in dextrose 50ml premix IVPB (COMPLETED) 1 g, Intravenous, Administer over 30 Minutes, EVERY 24 HOURS, 3 doses, First dose on Meche 04/28/24 at 1000, Last dose on 04/30/24 at 1000 1055 ($$New Bag$$ - Provider: Tomasa Richmond RN)1121 (Stopped - Provider: Tomasa Richmond RN) cyanocobalamin (VITAMIN B12) tablet 100 mcg 100 mcg, Oral, DAILY, First dose on 04/30/24 at 0900, Until Discontinued 0823 (Given - Provider: Tomasa Richmond RN) 0944 (Given - Provider: Tomasa Richmond RN) 0830 (Given - Provider: Gaby Snyder, HUBERT) furOSEmide (LASIX) tablet 40 mg (CANCELED) 40 mg, Oral, 2 TIMES DAILY BEFORE MEALS, First dose (after last modification) on Thu04/29/24 at 0745, Until Discontinued 0823 (Given - Provider: Tomasa Richmond RN)1531 (Given - Provider: Tomasa Richmond RN) 0945 (Given - Provider: Tomasa Richmond RN) furOSEmide (LASIX) tablet 40 mg(Linked Group 1) 40 mg, Oral, 2 TIMES DAILY BEFORE MEALS, First dose (after last modification) on Thu05/01/24 at 1600, Until Discontinued 1621 (Given - Provider: Tomasa Richmond RN) 0830 (Given - Provider: Gaby Snyder, HUBERT)1600 (Canceled Entry - Provider: System Discharge - Comment: Automatically canceled at discontinue of medication order) Heparin injection 5,000 Units 5,000 Units, Subcutaneous, EVERY 8 HOURS (0800/1600/2200), First dose on Thu04/27/24 at 1600, Until Discontinued, Post-op/Post-Proc 0823 (Given - Provider: Tomasa Richmond RN)1531 (Given - Provider: Tomasa Richmond RN)2137 (Given - Provider: Lexii Boles, RN) 0944 (Given - Provider: Tomasa Richmond RN)1621 (Given - Provider: Tomasa Richmond RN)2128 (Given - Provider: Lexii Boles, RN) 0830 (Given - Provider: Gaby Snyder, RN)1600 (Canceled Entry - Provider: System Discharge - Comment: Automatically canceled at discontinue of medication order) insulin glargine-yfgn (SEMGLEE) injection 24 Units (CANCELED) 24 Units, Subcutaneous, EVERY 24 HOURS, First dose (after last modification) on Thu04/30/24 at 1000, Until Discontinued, Do not mix in syringe with other insulins. 1055 (Given - Provider: Tomasa Richmond RN) insulin glargine-yfgn (SEMGLEE) injection 28 Units(Linked Group 2) 28 Units, Subcutaneous, EVERY 24 HOURS, First dose (after last modification) on Thu05/01/24 at 1000, Until Discontinued, Do not mix in syringe with other insulins. 1048 (Given - Provider: Tomasa Richmond RN) 0830 (Given - Provider: Gaby Snyder, HUBERT) Insulin lispro (HUMALOG) injection (CANCELED) Subcutaneous, 4 TIMES DAILY WITH MEALS & AT BEDTIME, First dose (after last modification) on Thu04/29/24 at 1700, Until Discontinued, Insulin to carb ratio (USE WHEN PATIENT BEGINS EATING, WHETHER OR NOT IV INSULIN INFUSION IS RUNNING): Non Standard: 1 unit insulin = 8 grams carbs every meal and at bedtime Correction Factor: (USE ONLY AFTER IV INSULIN INFUSION IS DISCONTINUED): 150-175 = 1 unit 176-200 = 2 units 201-225 = 3 units 226-250 = 4 units 251-275 = 5 units 276-300 = 6 units 301-325 = 7 units 326-350 = 8 units 351-375 = 9 units 376-400 = 10 units Kwikpen: Prime pen before each injection; refer to Pen Priming and Care Handout for further details. Warning! Confirm patient. Insulin pen is for labeled individual patient use ONLY., Post-op/Post-Proc 0827 (Given - Provider: Tomasa Richmond RN)1322 (Given - Provider: Tomasa Richmond RN) Insulin lispro (HUMALOG) injection(Linked Group 3) Subcutaneous, 4 TIMES DAILY WITH MEALS & AT BEDTIME, First dose (after last modification) on 04/30/24 at 1700, Until Discontinued, Insulin to carb ratio (USE WHEN PATIENT BEGINS EATING, WHETHER OR NOT IV INSULIN INFUSION IS RUNNING): Non Standard: 1 unit insulin = 6 grams carbs every meal and at bedtime Correction Factor: (USE ONLY AFTER IV INSULIN INFUSION IS DISCONTINUED): 150-175 = 1 unit 176-200 = 2 units 201-225 = 3 units 226-250 = 4 units 251-275 = 5 units 276-300 = 6 units 301-325 = 7 units 326-350 = 8 units 351-375 = 9 units 376-400 = 10 units Kwikpen: Prime pen before each injection; refer to Pen Priming and Care Handout for further details. Warning! Confirm patient. Insulin pen is for labeled individual patient use ONLY., Post-op/Post-Proc 1829 (Given - Provider: Tomasa Richmond RN)2137 (Given - Provider: Lexii Boles RN) 0946 (Given - Provider: Tomasa Richmond RN)1246 (Given - Provider: Tomasa Richmond RN)1737 (Given - Provider: Tomasa Richmond RN)2012 (Given - Provider: Lexii Boles RN) 0830 (Given - Provider: Gaby Snyder, HUBERT)1213 (Given - Provider: Gaby Snyder, RN) Lisinopril (PRINIVIL) tablet 5 mg 5 mg, Oral, DAILY, First dose (after last modification) on 05/02/24 at 0630, Until Discontinued 0830 (Given - Provider: Gaby Snyder, RN) Methocarbamol (ROBAXIN) tablet 750 mg (CANCELED) 750 mg, Oral, EVERY 6 HOURS, First dose (after last modification) on Meche 04/28/24 at 1800, Until Discontinued 0059 (Given - Provider: Lexii Boles RN)0546 (Given - Provider: Lexii Boles RN)1138 (Given - Provider: Tomasa Richmond RN)1717 (Given - Provider: Tomasa Richmond RN) 0124 (Given - Provider: Lexii Boles RN)0507 (Given - Provider: Lexii Boles RN) metoprolol (LOPRESSOR) injection 5 mg (COMPLETED) 5 mg, Intravenous, ONCE, 1 dose, On 04/30/24 at 0215 0155 (Given - Provider: Lexii Boles RN) Metoprolol (LOPRESSOR) tablet 37.5 mg (CANCELED) 37.5 mg, Oral, EVERY 12 HOURS, First dose (after last modification) on 04/30/24 at 0900, Until Discontinued, For all post-operative patients starting POD #1 for atrial fibrillation prophylaxis. Hold for Heart Rate less than 65 and Systolic Blood Pressure less than 100bpm or hold if patient is receiving inotropes (dobutamine, epinephrine, milrinone) or pressors (vasopressin, dopamine, norepinephrine, phenylephrine, isoproterenol). 0824 (Given - Provider: Tomasa Richmond RN) Metoprolol (LOPRESSOR) tablet 50 mg (CANCELED) 50 mg, Oral, EVERY 12 HOURS, First dose (after last modification) on 04/30/24 at 2100, Until Discontinued, For all post-operative patients starting POD #1 for atrial fibrillation prophylaxis. Hold for Heart Rate less than 65 and Systolic Blood Pressure less than 100bpm or hold if patient is receiving inotropes (dobutamine, epinephrine, milrinone) or pressors (vasopressin, dopamine, norepinephrine, phenylephrine, isoproterenol). 2020 (Given - Provider: Lexii Boles RN) 0900 (Canceled Entry - Provider: Chel Will PA-C - Comment: Automatically canceled at discontinue of medication order) Metoprolol succinate (TOPROL-XL) tablet XL 100 mg 100 mg, Oral, DAILY, First dose on Thu05/01/24 at 1015, Until Discontinued, Slow release product. Do not crush. Extended release can be cut in half. 0945 (Given - Provider: Tomasa Richmond RN) 0830 (Given - Provider: Gaby Snyder RN) Multi-Vitamins tablet 1 tablet(Linked Group 4) 1 tablet, Oral, DAILY, First dose on Thu04/26/24 at 1300, Until Discontinued, Use PO route if patient tolerating PO., Post-op/Post-Proc 0824 (Given - Provider: Tomasa Richmond RN) 0945 (Given - Provider: Tomasa Richmond RN) 0830 (Given - Provider: Gaby Snyder RN) Polyethylene glycol (MIRALAX) packet 17 g 17 g, Oral, 2 TIMES DAILY, First dose on Thu04/27/24 at 0900, Until Discontinued, Hold for loose stools or positive bowel movement in the last 48 hours., Post-op/Post-Proc 0756 (Not Given - Provider: Tomasa Richmond RN - Reason: Order Parameters not met)1520 (Not Given - Provider: Tomasa Richmond RN - Reason: Order Parameters not met) 0920 (Not Given - Provider: Tomasa Richmond RN - Reason: Order Parameters not met)1616 (Not Given - Provider: Tomasa Richmond RN - Reason: Order Parameters not met) 0751 (Not Given - Provider: Gaby Snyder RN - Reason: Order Parameters not met) Potassium chloride (K-DUR) tablet ER 20 mEq (CANCELED) 20 mEq, Oral, 2 TIMES DAILY, First dose on Thu04/29/24 at 0900, Until Discontinued 0823 (Given - Provider: Tomasa Richmond RN)1717 (Given - Provider: Tomasa Richmond RN) 0945 (Given - Provider: Tomasa Richmond RN) Potassium chloride (K-DUR) tablet ER 40 mEq(Linked Group 1) 40 mEq, Oral, 2 TIMES DAILY BEFORE MEALS, First dose on Thu05/01/24 at 1600, Until Discontinued, Swallow tablets whole; do not crush, chew, or suck on tablet. Tablet may also be broken in half and each half swallowed separately. 1621 (Given - Provider: Tomasa Richmond RN) 0839 (Given - Provider: Gaby Snyder RN - Comment: Effer-K 40 given. Unable to swallow big pills.)1600 (Canceled Entry - Provider: System Discharge - Comment: Automatically canceled at discontinue of medication order) Pravastatin (PRAVACHOL) tablet 40 mg 40 mg, Oral, DAILY AT BEDTIME, First dose on Thu04/30/24 at 2100, Until Discontinued 2020 (Given - Provider: Lexii Boles RN) 2012 (Given - Provider: Lexii Boles RN) Senna (SENOKOT) tablet 17.2 mg 17.2 mg, Oral, EVERY 12 HOURS, First dose (after last modification) on Thu04/27/24 at 2100, Until Discontinued, Hold for loose stools or positive bowel movement in the last 48 hours., Post-op/Post-Proc 075 (Not Given - Provider: Tomasa Richmond RN - Reason: Order Parameters not met)2020 (Given - Provider: Lexii Boles RN) 09 (Given - Provider: Tomasa Richmond RN)2014 (Not Given - Provider: Lexii Boles RN - Reason: Patient/family refused) 075 (Not Given - Provider: Gaby Snyder RN - Reason: Order Parameters not met) PRN Medication Order 04/30/2024 05/01/2024 05/02/2024 Calcium Gluconate 10 % injection 2 g(Linked Group 5) 2 g, Intravenous, ADMINISTER DIRECTED, Starting on Thu04/26/24 at 1247, Until Thu05/02/24 at 1611, See admin instructions, 1. If ionized Calcium 4.1-4.5, give 2.0 gm of Calcium Gluconate IV Push over 10 minutes 2. If Calcium less than or equal to 4.0, give 4 gm Calcium Gluconate/250 mL NS IVPB over 1 hour and recheck 1 hour after completion of infusion. Repeat labs in AM. Extravasation Risk, Post-op/Post-Proc 0514 (Given - Provider: Lexii Boles RN) 0452 (Given - Provider: Lexii Boles RN) 0507 (Given - Provider: Lexii Boles RN) Calcium Gluconate 4 g in Sodium chloride 0.9%, with overfill 150 mL (total volume) IVPB(Linked Group 5) 4 g, Intravenous, Administer over 60 Minutes, ADMINISTER DIRECTED, Starting on Thu04/26/24 at 1247, Until Thu05/02/24 at 1611, See admin instructions, 1. If ionized Calcium 4.1-4.5, give 2.0 gm of Calcium Gluconate IV Push over 10 minutes 2. If Calcium less than or equal to 4.0, give 4 gm Calcium Gluconate/250 mL NS IVPB over 1 hour and recheck 1 hour after completion of infusion. Repeat labs in AM. Extravasation Risk, Post-op/Post-Proc 0514 (See Alternative - Provider: Lexii Boles RN) 0452 (See Alternative - Provider: Lexii Boles RN) 0507 (See Alternative - Provider: Lexii Boles RN) Dextrose 50% injection 7.5-25 g(Linked Group 3) 7.5-25 g, Intravenous, ADMINISTER DIRECTED, Starting on 04/30/24 at 1544, Until 05/02/24 at 1611, Blood glucose <80 mg/dL, For patients who are not alert, are NPO, or are on IV insulin infusion administer as directed per Hypoglycemia in Non- Adults Clinical Practice Guideline. For Blood Glucose: 60-79 mg/dL administer 7.5 gm (15ml); 45-59 mg/dL administer 12.5 gm (25ml); less than 45mg/dL administer 25gm (50ml). ++ If additional dextrose 50% needed, contact pharmacy or obtain from [facility] cart ++, Post-op/Post-Proc glucose (GLUTOSE) 40 % oral gel 1-2 Tube(Linked Group 3) 1-2 Tube, Oral, ADMINISTER DIRECTED, Starting on 04/30/24 at 1544, Until 05/02/24 at 1611, Blood glucose <80 mg/dL, For patients who are alert, able to tolerate PO intake and with intact cognitive status administer as directed per Hypoglycemia in Non- Adults Clinical Practice Guideline. For Blood Glucose: 60-79 mg/dL administer 1 tube; 45-59 mg/dl administer 1.5 tubes; less than 45 mg/dL administer 2 tubes. Each tube of 37.5g delivers 15g of carbohydrate., Post-op/Post-Proc hydrALAZINE (APRESOLINE) injection 10 mg (CANCELED) 10 mg, Intravenous, EVERY 6 HOURS NEEDED, Starting on Thu04/27/24 at 1215, Until 04/30/24 at 0511, Other, SBP >140 0101 (Given - Provider: Lexii Boles, HUBERT) hydrALAZINE (APRESOLINE) injection 10 mg (CANCELED) 10 mg, Intravenous, EVERY 4 HOURS NEEDED, Starting on 04/30/24 at 0511, Until 04/30/24 at 1506, Other, SBP >140 0529 (Given - Provider: Lexii Boles, RN)1138 (Given - Provider: Tomasa Richmond RN) hydrALAZINE (APRESOLINE) injection 15 mg (CANCELED) 15 mg, Intravenous, EVERY 4 HOURS NEEDED, Starting on 04/30/24 at 1506, Until 05/01/24 at 1022, Other, SBP >140 1530 (Given - Provider: Tomasa Richmond RN)2136 (Given - Provider: Lexii Boles RN) hydrALAZINE (APRESOLINE) injection 20 mg 20 mg, Intravenous, EVERY 4 HOURS NEEDED, Starting on 05/01/24 at 1022, Until 05/02/24 at 1611, Other, SBP >140 1131 (Given - Provider: Tomasa Richmond RN)2013 (Given - Provider: Lexii Boles RN) 521 (Given - Provider: Lexii Boles RN) hydrOXYzine HCl (ATARAX) tablet 25 mg 25 mg, Oral, EVERY 6 HOURS NEEDED, Starting on 04/30/24 at 0833, Until 05/02/24 at 1611, Anxiety, Itching, Insomnia 2021 (Given - Provider: Lexii Boles RN) 2127 (Given - Provider: Lexii Boles RN) Insulin lispro (HUMALOG) injection(Linked Group 3) Subcutaneous, NEEDED, Starting on 04/30/24 at 1544, Until 05/02/24 at 1611, Other, As needed for snacks, Insulin to carb ratio: non Standard: 1 unit insulin = 6 grams carbs Correction factor: not to be used with this order. Kwikpen: Prime pen before each injection; refer to Pen Priming and Care Handout for further details. Warning! Confirm patient. Insulin pen is for labeled individual patient use ONLY., Post-op/Post-Proc 2143 (Given - Provider: Lexii Boles RN) 2014 (Given - Provider: Lexii Boles RN) Labetalol (NORMODYNE) injection 10 mg 10 mg, Intravenous, EVERY 6 HOURS NEEDED, Starting on 04/30/24 at 1506, Until 05/02/24 at 1611, SBP >140 with HR >60, Administration duration: up to 20 mg over 2 minutes. Telemetry required except for CREDIT PROCESSOR patients on [address] 6 and 7. For vials: labetalol should be treated as a SINGLE USE VIAL. Discard remaining contents after one use. 2239 (Given - Provider: Lexii Boles RN) 521 (Given - Provider: Lexii Boles RN)1622 (Given - Provider: Tomasa Richmond RN) 0119 (Given - Provider: Lexii Boles RN) Labetalol (NORMODYNE) injection 5 mg (CANCELED) 5 mg, Intravenous, EVERY 6 HOURS NEEDED, Starting on 04/30/24 at 1207, Until 04/30/24 at 1506, SBP >140 with HR >60, Administration duration: up to 20 mg over 2 minutes. Telemetry required except for CREDIT PROCESSOR patients on [address] 6 and 7. For vials: labetalol should be treated as a SINGLE USE VIAL. Discard remaining contents after one use. 1320 (Given - Provider: Tomasa Richmond RN) Magnesium sulfate 4 g in sterile water 50 ml premix IVPB 4 g, Intravenous, Administer over 4 Hours, ADMINISTER DIRECTED, Starting on 04/26/24 at 1247, Until Thu05/02/24 at 1611, Other, Magnesium replacement therapy:, 1. If Magnesium 1.7-2.4, Give 4 g Magnesium Sulfate IVPB. 2. If Magnesium less than or equal to 1.6, Give 8g Magnesium Sulfate IVPB. 3. Recheck Magnesium level 4 hours after completion of infusion., Post-op/Post-Proc 0544 ($$New Bag$$ - Provider: Lexii Boles RN)1032 (Stopped - Provider: Tomasa Richmond RN) 0527 ($$New Bag$$ - Provider: Lexii Boles RN)0932 (Stopped - Provider: Tomasa Richmond RN) 0524 ($$New Bag$$ - Provider: Lexii Boles RN)0818 (Stopped - Provider: Gaby Snyder RN) Methocarbamol (ROBAXIN) tablet 500 mg 500 mg, Oral, EVERY 6 HOURS NEEDED, Starting on 05/01/24 at 1030, Until 05/02/24 at 1611, Muscle spasms, Moderate Pain, Severe Pain Ondansetron 4mg/2ml (ZOFRAN) injection 4 mg 4 mg, Intravenous, EVERY 4 HOURS NEEDED, Starting on 04/26/24 at 1247, Until Thu05/02/24 at 1611, Nausea / Vomiting, Post-op/Post-Proc oxyCODONE (ROXICODONE) tablet 5 mg(Linked Group 6) 5 mg, Oral, EVERY 4 HOURS NEEDED, Starting on 04/29/24 at 0742, Until Thu05/02/24 at 1611, Moderate Pain, PRN for moderate pain or severe pain (DVPRS) or CPOT>2. Use first if PO/NG administration available. 822 (Given - Provider: Tomasa Richmond RN) Potassium Bicarb-Citric Acid (Effer-K) 20 MEQ effervescent tablets for oral solution 20 mEq 20 mEq, Oral, ADMINISTER DIRECTED, Starting on [place] 04/28/24 at 1210, Until Thu05/02/24 at 1611, Low Potassium / RENAL DOSAGE, 1. If Creatinine 2.0-2.5 mg/dL and/or urine output less than 30 mL/hour. 2. Potassium Less than 3.6, give 20 mEq Potassium Chloride, recheck in 8 hours. 3. If Creatinine greater than 2.5 consult critical care team for Potassium less than 4.0 for replacement orders. 4. If Potassium low, replace magnesium first if indicated. Do not swallow whole. Dissolve completely in 3-4 ounces of water or cold juice before drinking. If administering via J tube, dilute in sterile water, wait for tablet to stop fizzing, swirl the solution and draw into a syringe suitable for attaching to the tube. After administration, flush tube with 15-30 ml water., Post-op/Post-Proc Potassium Bicarb-Citric Acid (Effer-K) 20 MEQ effervescent tablets for oral solution 20-60 mEq 20-60 mEq, Oral, ADMINISTER DIRECTED, Starting on [place] 04/28/24 at 1210, Until Thu05/02/24 at 1611, Other, See administration instructions, 1. If Creatinine less than 2.0 mg/dL and/or urine output greater than 30 mL/hour. 2. If Potassium is 4.1-4.4, give 20 mEq Potassium Chloride oral. 3. If Potassium is 3.6-4.0, give 40 mEq Potassium Chloride oral. 4. If Potassium less than 3.6, give 60 mEq Potassium Chloride orally, recheck in 8 hours. 5. If Potassium low, replace Magnesium first if indicated. Do not swallow whole. Dissolve completely in 3-4 ounces of water or cold juice before drinking. If administering via J tube, dilute in sterile water, wait for tablet to stop fizzing, swirl the solution and draw into a syringe suitable for attaching to the tube. After administration, flush tube with 15-30 ml water., Post-op/Post-Proc 0507 (Given - Provider: Lexii Boles RN) Potassium chloride (K-DUR) tablet ER 20 mEq 20 mEq, Oral, ADMINISTER DIRECTED, Starting on [place] 04/28/24 at 1210, Until 05/02/24 at 1611, See admin instructions, RENAL DOSAGE, 1. If Creatinine 2.0-2.5 mg/dL and/or urine output less than 30 mL/hour. 2. Potassium Less than 3.6, give 20 mEq Potassium Chloride, recheck in 8 hours. 3. If Creatinine greater than 2.5 consult critical care team for Potassium less than 4.0 for replacement orders. 4. If Potassium low, replace magnesium first if indicated., Post-op/Post-Proc Potassium chloride (K-DUR) tablet ER 20-60 mEq 20-60 mEq, Oral, ADMINISTER DIRECTED, Starting on [place] 04/28/24 at 1210, Until 05/02/24 at 1611, See admin instructions, 1. If Creatinine less than 2.0 mg/dL and/or urine output greater than 30 mL/hour. 2. If Potassium is 4.1-4.4, give 20 mEq Potassium Chloride oral. 3. If Potassium is 3.6-4.0, give 40 mEq Potassium Chloride oral. 4. If Potassium less than 3.6, give 60 mEq Potassium Chloride orally, recheck in 8 hours. 5. If Potassium low, replace Magnesium first if indicated., Post-op/Post-Proc 0545 (Given - Provider: Lexii Boles, HUBERT) 0451 (Given - Provider: Lexii Boles RN) Linked Groups Order Group 1: furOSEmide (LASIX) tablet 40 mgJump to med 40 mg, Oral, 2 TIMES DAILY BEFORE MEALS, First dose (after last modification) on 05/01/24 at 1600, Until Discontinued And Potassium chloride (K-DUR) tablet ER 40 mEqJump to med 40 mEq, Oral, 2 TIMES DAILY BEFORE MEALS, First dose on 05/01/24 at 1600, Until Discontinued, Swallow tablets whole; do not crush, chew, or suck on tablet. Tablet may also be broken in half and each half swallowed separately. Group 2: insulin glargine-yfgn (SEMGLEE) injection 28 UnitsJump to med 28 Units, Subcutaneous, EVERY 24 HOURS, First dose (after last modification) on 05/01/24 at 1000, Until Discontinued, Do not mix in syringe with other insulins. And NOTIFY PHYSICIAN, OTHER (CANCELED) Routine, CONTINUOUS, Starting on 05/01/24 at 0904, Until Specified, Who to Notify: Stereotype Finisher, Call Stereotype Finisher if a.m. Glucose is less than 80 and dose reduction not already ordered. Group 3: Insulin lispro (HUMALOG) injectionJump to med Subcutaneous, 4 TIMES DAILY WITH MEALS & AT BEDTIME, First dose (after last modification) on 04/30/24 at 1700, Until Discontinued, Insulin to carb ratio (USE WHEN PATIENT BEGINS EATING, WHETHER OR NOT IV INSULIN INFUSION IS RUNNING): Non Standard: 1 unit insulin = 6 grams carbs every meal and at bedtime Correction Factor: (USE ONLY AFTER IV INSULIN INFUSION IS DISCONTINUED): 150-175 = 1 unit 176-200 = 2 units 201-225 = 3 units 226-250 = 4 units 251-275 = 5 units 276-300 = 6 units 301-325 = 7 units 326-350 = 8 units 351-375 = 9 units 376-400 = 10 units Kwikpen: Prime pen before each injection; refer to Pen Priming and Care Handout for further details. Warning! Confirm patient. Insulin pen is for labeled individual patient use ONLY., Post-op/Post-Proc And Insulin lispro (HUMALOG) injectionJump to med Subcutaneous, NEEDED, Starting on 04/30/24 at 1544, Until 05/02/24 at 1611, Other, As needed for snacks, Insulin to carb ratio: non Standard: 1 unit insulin = 6 grams carbs Correction factor: not to be used with this order. Kwikpen: Prime pen before each injection; refer to Pen Priming and Care Handout for further details. Warning! Confirm patient. Insulin pen is for labeled individual patient use ONLY., Post-op/Post-Proc And BLOOD GLUCOSE (POC DEVICE) (CANCELED) Routine, 4 TIMES DAILY BEFORE MEALS & AT BEDTIME, First occurrence on 04/30/24 at 2100, If any Blood Glucose (POC) is greater than 300mg/dl, then repeat Blood Glucose (POC) in 2 hours. If the initial blood glucose was greater than 300mg/dl and if second blood glucose is greater than 200md/dl, then notify Stereotype Finisher., Post-op/Post-Proc And BLOOD GLUCOSE (POC DEVICE) (CANCELED) Routine, DIRECTED, Starting on 04/30/24 at 1544, Until Specified, For all Blood Glucose LESS THAN 80 mg/dL, treat per Hypoglycemia in Non- Adults Clinical Practice Guideline (CPG) and recheck glucose 15 min after treatment. Repeat per CPG until glucose GREATER THAN 80 mg/dL. Once glucose IS GREATER THAN 80 mg/dL, recheck Blood Glucose every 1 hour x2, then resume as previously ordered. For Blood Glucose LESS THAN 80 mg/dL on admission OR LESS than 45 mg/dL at any time, obtain POC Blood Glucose every 4 hours for 6 occurrences AFTER treating per CPG. Obtain blood glucose for symptoms of hypoglycemia: sweating, shaking, fatigue, rapid pulse, slow thinking & dizziness. Notify physician w/results. Obtain blood glucose for symptoms of hyperglycemia: excessive thirst, blurred vision, excessive urination & tiredness. Notify physician w/results. If patient NPO, obtain POC Blood Glucose prior to administration of any insulin products., Post-op/Post-Proc And COMMUNICATION ORDER FOR NURSING CARE: For Blood Glucose LESS THAN 80 mg/dl (CANCELED) Routine, CONTINUOUS, Starting on 04/30/24 at 1545, Until Specified, For Blood Glucose LESS THAN 80 mg/dl follow Hypoglycemia in Non- Adults Clinical Practice Guideline (CPG), Post-op/Post-Proc And Dextrose 50% injection 7.5-25 gJump to med 7.5-25 g, Intravenous, ADMINISTER DIRECTED, Starting on 04/30/24 at 1544, Until 05/02/24 at 1611, Blood glucose <80 mg/dL, For patients who are not alert, are NPO, or are on IV insulin infusion administer as directed per Hypoglycemia in Non- Adults Clinical Practice Guideline. For Blood Glucose: 60-79 mg/dL administer 7.5 gm (15ml); 45-59 mg/dL administer 12.5 gm (25ml); less than 45mg/dL administer 25gm (50ml). ++ If additional dextrose 50% needed, contact pharmacy or obtain from [facility] cart ++, Post-op/Post-Proc And glucose (GLUTOSE) 40 % oral gel 1-2 TubeJump to med 1-2 Tube, Oral, ADMINISTER DIRECTED, Starting on 04/30/24 at 1544, Until Thu05/02/24 at 1611, Blood glucose <80 mg/dL, For patients who are alert, able to tolerate PO intake and with intact cognitive status administer as directed per Hypoglycemia in Non- Adults Clinical Practice Guideline. For Blood Glucose: 60-79 mg/dL administer 1 tube; 45-59 mg/dl administer 1.5 tubes; less than 45 mg/dL administer 2 tubes. Each tube of 37.5g delivers 15g of carbohydrate., Post-op/Post-Proc And NOTIFY PHYSICIAN, Blood Glucose LESS THAN 80 mg/dl (CANCELED) Routine, CONTINUOUS, Starting on 04/30/24 at 1545, Until Specified, Who to Notify: Stereotype Finisher, For all Blood Glucose LESS THAN 80 mg/dl, notify Stereotype Finisher after treatment per Hypoglycemia in Non- Adults Clinical Practice Guideline, Post-op/Post-Proc And Carbohydrate counts with meals (CANCELED) Routine, CONTINUOUS, Starting on 04/30/24 at 1545, Until Specified, Carbohydrate counts are to be done after each patient meal and with snack., Post-op/Post-Proc Group 4: Multi-Vitamins tablet 1 tablet (CANCELED) 1 tablet, Per NG tube, DAILY, First dose on Thu04/26/24 at 1300, Until Discontinued, Crush for NG tube administration., Post-op/Post-Proc Or Multi-Vitamins tablet 1 tabletJump to med 1 tablet, Oral, DAILY, First dose on Thu04/26/24 at 1300, Until Discontinued, Use PO route if patient tolerating PO., Post-op/Post-Proc Group 5: Calcium Gluconate 10 % injection 2 gJump to med 2 g, Intravenous, ADMINISTER DIRECTED, Starting on Thu04/26/24 at 1247, Until Thu05/02/24 at 1611, See admin instructions, 1. If ionized Calcium 4.1-4.5, give 2.0 gm of Calcium Gluconate IV Push over 10 minutes 2. If Calcium less than or equal to 4.0, give 4 gm Calcium Gluconate/250 mL NS IVPB over 1 hour and recheck 1 hour after completion of infusion. Repeat labs in AM. Extravasation Risk, Post-op/Post-Proc Or Calcium Gluconate 4 g in Sodium chloride 0.9%, with overfill 150 mL (total volume) IVPBJump to med 4 g, Intravenous, Administer over 60 Minutes, ADMINISTER DIRECTED, Starting on Thu04/26/24 at 1247, Until Thu05/02/24 at 1611, See admin instructions, 1. If ionized Calcium 4.1-4.5, give 2.0 gm of Calcium Gluconate IV Push over 10 minutes 2. If Calcium less than or equal to 4.0, give 4 gm Calcium Gluconate/250 mL NS IVPB over 1 hour and recheck 1 hour after completion of infusion. Repeat labs in AM. Extravasation Risk, Post-op/Post-Proc Group 6: oxyCODONE (ROXICODONE) tablet 5 mgJump to med 5 mg, Oral, EVERY 4 HOURS NEEDED, Starting on Thu04/29/24 at 0742, Until Thu05/02/24 at 1611, Moderate Pain, PRN for moderate pain or severe pain (DVPRS) or CPOT>2. Use first if PO/NG administration available. (unrecognized sect ion and content) No Status Records FoundNo Status Records FoundNo Status Records Found INFORMATION SOURCE (unrecogn ized section and content) DATE CREATED AUTHOR 08/31/2024 [facility] DATE CREATED AUTHOR AUTHOR'S ORGANIZ ATION 09/10/2024 [facility] DATE CREATED AUTHOR AUTHOR'S ORGANIZ ATION 11/13/2024 [facility] FOR RECORDS PERTAINING TO PATIENTS WHO ARE OR HAVE BEEN ENROLLED IN A CHEMICAL DEPENDENCY/SUBSTANCEABUSE PROGRAM, SOME INFORMATION MAY BE OMITTED. This clinical summary was aggregated from multiple sources. Caution should be exercised in using it in the provision of clinical care. This summary normalizes information from multiple sources, and as a consequence, information in this document may materially change the coding, format and clinical context of patient data. In addition, data may be omitted in some cases. CLINICAL DECISIONS SHOULD BE BASED ON THE PRIMARY CLINICAL RECORDS. [employer] provides no warranty or guarantee of the accuracy or completeness of information in this document.
[2024-11-19 10:44] LABS: Absolute Lymphocyte Count 2.18 X10^3/uL (0.83-4.51); Absolute Neutrophil Count 5.4 X10^3/uL (2.0-7.7); Basophil# 0.06 X10^3/uL; Basophil% 0.7 % (0-1); Eosinophil# 0.09 X10^3/uL; Hematocrit 45.1 % (40-54); Hemoglobin 14.2 g/dL (13.0-16.5); Lymphocyte # 2.18 X10^3/ul (0.83-4.51); Lymphocyte % 25.1 % (19-41); Mean Corp Hgb Conc 31.5 g/dL (32-36); Mean Corpuscular Hgb 24.7 pg (27.0-32.0); Mean Corpuscular Volume 78.4 fL (80-94); Mean Platelet Vol. 9.4 fl (6.2-12.0); Monocyte# 0.96 X10^3/uL; NRBC Flagged by Analyzer 0 % (0-5); Neutrophil # 5.36 X10^3/uL (2.7-7.7); Neutrophil % 61.6 % (47-70); Platelet Count 309 K/mm3 (150-450); RBC Distribution Width CV 16.6 % (11.6-14.6); RBC Distribution Width SD 44.4 fl (35.1-43.9); Red Blood Count 5.75 M/mm3 (4.6-6.2); White Blood Count 8.7 K/mm3 (4.4-11.0)
[2024-11-19 11:00] LABS: Hemoglobin A1c 6.7 % (<=5.6)
[2024-11-19 11:23] LABS: Microalbumin,Random Urine 54.1 mg/L (NO RANGE EST.)
[2024-11-19 11:26] LABS: ALB/GLOB Ratio 1.3 RATIO (0.9-2.4); AST(SGOT) 20 U/L (<=37); Alanine Aminotransfer ALT/SGPT 18 U/L (<=46); Albumin, Serum 4.2 g/dL (3.5-5.0); Alkaline Phosphatase 80 U/L (40-129); Anion Gap 15 (5-15); BUN 18 mg/dL (4-19); BUN/Creat Ratio 27.6 RATIO (10-20); Calcium,Total 9.8 mg/dL (7.6-11.0); Carbon Dioxide 21.1 mmol/L (21.0-32.0); Chloride 97 mmol/L (98-108); Creatinine, Serum 0.66 mg/dL (0.70-1.20); EST Glomerular Filtration Rate 112 (>60); Globulin 3.2 g/dL (2.2-4.2); Glucose 163 mg/dL (70-99); Potassium 4.2 mmol/L (3.3-5.1); Protein, Total 7.3 g/dL (5.9-8.4); Sodium Level 134 mmol/L (133-145); Total Bilirubin 0.36 mg/dL (0.00-1.30)
== END | disposition home or self-care (01) ==
LOC: LAB 09:39
PROVIDERS: PCP Family Medicine; Referring Provider Nurse Practitioner Adult Health; Visit Provider Nurse Practitioner Adult Health
DX: E11.21 Type 2 diabetes mellitus with diabetic nephropathy (principal)
CPT/HCPCS: 80053; 82043; 83036; 85025

== ENCOUNTER → 2025-04-17 | Outpatient (CLI) | payer BC, SELFPAY ==
[2024-09-06 07:23] VITALS: BMI 33.2
[2025-04-17 18:17] LABS: AST(SGOT) 22 U/L (<=37); Alanine Aminotransfer ALT/SGPT 24 U/L (<=46); Albumin, Serum 4.4 g/dL (3.5-5.0); Alkaline Phosphatase 68 U/L (40-129); Anion Gap 13 (5-15); BUN 14 mg/dL (4-19); BUN/Creat Ratio 18.1 RATIO (10-20); Calcium,Total 9.9 mg/dL (7.6-11.0); Carbon Dioxide 26.0 mmol/L (21.0-32.0); Chloride 96 mmol/L (98-108); Globulin 3.2 g/dL (2.2-4.2); Glucose 92 mg/dL (70-99); Potassium 4.0 mmol/L (3.3-5.1); Uric Acid 5.8 mg/dL (3.5-7.2)
[2025-04-17 18:31] LABS: Creatinine, Urine (random) 81.10 mg/dL (39.00-259.00); Microalbumin,Random Urine 69.0 mg/L (<20 mg/L)
== END | disposition home or self-care (01) ==
LOC: MTLAB 16:48
PROVIDERS: PCP Family Medicine; Referring Provider Family Medicine; Visit Provider Family Medicine
DX: E11.8 Type 2 diabetes mellitus with unspecified complications (principal); M10.9 Gout, unspecified
CPT/HCPCS: 36415; 80053; 82043; 82570; 83036; 84550